=== PATIENT | female | born 1970 | race Caucasian/White ===

== ENCOUNTER 2023-11-13 13:31 | Outpatient (OUT) | payer BC, SELFPAY ==
--- NOTE | 2023-11-13 | XR_ITS ---
The [address] [address] Patient Name: DEJAH DYKES MRN: [id number] date: 1970 Sex: F Assigned Patient Location: Current Patient Location: Accession/Order Number: [id number] Exam Date: 11/13/2023 13:32 Report Date: 11/13/2023 14:12 At the request of: SAURABH MOREL Procedure: XR ankle RT min 3V PROCEDURE: XR ankle RT min 3V COMPARISON: None. HISTORY: RIGHT ANKLE PAIN FINDINGS: BONES:No acute fracture or dislocation. Moderate degenerative changes with joint space narrowing and marginal osteophyte formation. Mild enthesopathic spurring the calcaneus at the Achilles tendon. Mild plantar rotation of the navicular in relation to the tarsal bones SOFT TISSUES:Negative. No visible soft tissue swelling. EFFUSION:None visible. OTHER: Negative. XR/XR ankle RT min 3V IMPRESSION: Moderate degenerative changes most significant anterior tibiotalar joint Electronically authenticated by: ILANA PINEDA Date: 11/13/2023 14:12
== END 2023-11-13 13:32 | disposition home or self-care (01) ==
PROVIDERS: PCP Physician Assistant; Visit Provider Podiatrist Foot & Ankle Surgery
DX: M25.571 Pain in right ankle and joints of right foot (principal)
CPT/HCPCS: 73610

== ENCOUNTER 2023-11-15 13:16 | Outpatient (OUT) | payer BC, SELFPAY ==
--- NOTE | 2023-11-15 13:24 | CT_ITS ---
[address] [address] Patient Name: DEJAH DYKES MRN: [id number] date: 1970 Sex: F Assigned Patient Location: CT Current Patient Location: Accession/Order Number: [id number] Exam Date: 11/15/2023 13:30 Report Date: 11/18/2023 07:16 At the request of: SAURABH MOREL Procedure: CT ankle RT wo con EXAMINATION: CT ankle RT wo con HISTORY: Degenerative Joint Disease COMPARISON: No relevant comparison available. TECHNIQUE: Multi-planar CT images were created without IV contrast. Dose reduction techniques were achieved by using automated exposure control and/or adjustment of mA and/or kV according to patient size and/or use of iterative reconstruction technique. FINDINGS: BONES: No acute fracture or dislocation. Mild degenerative changes of the knee. Moderate degenerative changes of the ankle most significant along the anterior tibiotalar joint with marginal osteophyte formation and asymmetric anterior joint space narrowing. Minimal enthesopathic spurring of the calcaneus at the Achilles insertion. SOFT TISSUES: Negative. No visible soft tissue swelling. EFFUSION: None visible. OTHER: Negative. CT/CT ankle RT wo con IMPRESSION: Moderate tibiotalar joint osteoarthritis Electronically authenticated by: ILANA PINEDA Date: 11/18/2023 07:16
== END 2023-11-15 13:17 | disposition home or self-care (01) ==
LOC: CT 13:19
PROVIDERS: PCP Physician Assistant; Visit Provider Podiatrist Foot & Ankle Surgery
DX: M19.071 Primary osteoarthritis, right ankle and foot (principal)
CPT/HCPCS: 73700

== ENCOUNTER 2024-03-30 09:54 | Outpatient (OUT) | payer BC, SELFPAY ==
--- NOTE | 2024-03-30 10:01 | ECG_ITS ---
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
--- NOTE | 2024-03-30 10:52 | P.GSHP_ITS ---
History of Present Illness History of Present Illness Chief complaint: primary osteoarthritis right Narrative: Patient presents for preadmission testing. The patient reports 3 previous surgeries on her right ankle and still has pain and instability. She states after long periods of time on her feet she does have some mild swelling. She is not currently taking any pain medications but has been intermittently using a wrap or a brace to help with her discomfort. She denies numbness, tingling, weakness, or any other complaints. She states she was diagnosed with MANRIQUEZ in the last year, and was recently diagnosed with diabetes and is awaiting insurance approval for [employer]. Review of Systems ROS Narrative REVIEW OF SYSTEMS: Negative except as stated in HPI, ten or more systems reviewed. Constitutional: No fever, chills, weakness ENT: No sore throat or epistaxis Cardiovascular: No edema, chest pain, palpitations, or activity intolerance Respiratory: No shortness of breath, cough, or wheezing Gastrointestinal: No abdominal pain, constipation, diarrhea, or vomiting Genitourinary: No dysuria or hematuria Neurological: No numbness, tingling, weakness, or headache Psychiatric: No mood changes [facility] Medical History (Updated 03/30/24 @ 10:49 by Tiffanie Stephenson NP) Rosacea ?L71.9 - Rosacea, unspecified (ICD-10) Carpal tunnel syndrome ?G56.00 - Carpal tunnel syndrome, unspecified upper limb (ICD-10) Back pain ?M54.9 - Dorsalgia, unspecified (ICD-10) Insomnia ?G47.00 - Insomnia, unspecified (ICD-10) COVID-19 ?U07.1 - COVID-19 (ICD-10) Sleep apnea ?G47.30 - Sleep apnea, unspecified (ICD-10) Sepsis ?A41.9 - Sepsis, unspecified organism (ICD-10) S/P extracorporeal shock wave therapy ?Z98.890 - Other specified postprocedural states (ICD-10) Kidney stones ?N20.0 - Calculus of kidney (ICD-10) Seasonal allergies ?J30.2 - Other seasonal allergic rhinitis (ICD-10) Extremity edema ?R60.0 - Localized edema (ICD-10) Diabetes ?E11.9 - Type 2 diabetes mellitus without complications (ICD-10) Postoperative nausea and vomiting ?R11.2 - Nausea with vomiting, unspecified (ICD-10) ?Z98.890 - Other specified postprocedural states (ICD-10) Deep vein thrombosis ?I82.409 - Acute embolism and thrombosis of unspecified deep veins of unspecified lower extremity (ICD-10) MANRIQUEZ (nonalcoholic steatohepatitis) ?K75.81 - Nonalcoholic steatohepatitis (MANRIQUEZ) (ICD-10) Hypothyroid ?E03.9 - Hypothyroidism, unspecified (ICD-10) Hypertension ?I10 - Essential (primary) hypertension (ICD-10) Liver disease ?K76.9 - Liver disease, unspecified (ICD-10) Other specified acquired deformities of musculoskeletal system ?M95.8 - Other specified acquired deformities of musculoskeletal system (ICD- 10) 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 - Osteochondritis dissecans of unspecified site (ICD-10) Contracture, right ankle ?M24.571 - Contracture, right ankle (ICD-10) Primary osteoarthritis, right ankle and foot ?M19.071 - Primary osteoarthritis, right ankle and foot (ICD-10) Surgical History (Updated 03/30/24 @ 10:33 by Tiffanie Stephenson NP) S/P ureteral stent placement ?Z96.0 - Presence of urogenital implants (ICD-10) S/P cystoscopy ?Z98.890 - Other specified postprocedural states (ICD-10) History of carpal tunnel release ?Z98.890 - Other specified postprocedural states (ICD-10) History of nasal septoplasty ?Z98.890 - Other specified postprocedural states (ICD-10) History of wisdom tooth extraction ?K08.409 - Partial loss of teeth, unspecified cause, unspecified class (ICD- 10) History of esophagogastroduodenoscopy (EGD) ?Z98.890 - Other specified postprocedural states (ICD-10) History of colonoscopy ?Z98.890 - Other specified postprocedural states (ICD-10) History of liver biopsy ?Z98.890 - Other specified postprocedural states (ICD-10) H/O lumbosacral spine surgery ?Z98.890 - Other specified postprocedural states (ICD-10) H/O shoulder surgery ?Z98.890 - Other specified postprocedural states (ICD-10) History of ankle surgery ?Z98.890 - Other specified postprocedural states (ICD-10) History of hysterectomy ?Z90.710 - Acquired absence of both cervix and uterus (ICD-10) History of cholecystectomy ?Z90.49 - Acquired absence of other specified parts of digestive tract (ICD- 10) Family History (Updated 03/30/24 @ 10:33 by Tiffanie Stephenson NP) Other Cancer Family history of COPD (chronic obstructive pulmonary disease) Family history of diabetes mellitus Family history of hypertension Liver disease Social History (Updated 03/30/24 @ 10:24 by Tiffanie Stephenson NP) Within the past year, how often did you have a drink containing alcohol: never Score interpretation: A score less than 3 is consistent with normal alcohol consumption. Smoking status: Never smoker Non-prescribed substance use: denies use Highest level of school completed/degree received: Associate degree: academic program Meds Home Medications and Allergies Home Medications ?Medication ?Instructions ?Recorded ?Confirmed ?Type bisoprolol 2.5 1 tab PO DAILY 03/30/24 03/30/24 History mg-hydrochlorothiazide 6.25 mg tablet levothyroxine 50 mcg tablet 50 mcg PO DAILY 03/30/24 03/30/24 History minocycline 100 mg capsule 100 mg PO DAILY 03/30/24 03/30/24 History montelukast 10 mg tablet 10 mg PO DAILY 03/30/24 03/30/24 History potassium chloride 20 mEq 20 meq PO DAILY 03/30/24 03/30/24 History tablet,extended release resmetirom 100 mg tablet 100 mg PO DAILY 03/30/24 03/30/24 History (Rezdiffra) zolpidem 10 mg tablet 10 mg PO QPM 03/30/24 03/30/24 History Allergies Allergy/AdvReac Type Severity Reaction Status Date / Time acetaminophen [From Vicodin] Allergy delusional, Verified 03/30/24 10:14 liver disease adhesive Allergy Rash Verified 03/30/24 10:15 hydrocodone [From Vicodin] Allergy delusional Verified 03/30/24 10:14 sulfamethoxazole AdvReac yeast Verified 03/30/24 10:15 [From Bactrim] infection trimethoprim [From Bactrim] AdvReac yeast Verified 03/30/24 10:15 infection Exam Narrative Exam Narrative: Constitutional: Awake, alert, comfortable, well-appearing, nontoxic, interactive, vital signs as charted Head: Normocephalic, atraumatic Neck: Supple, normal appearance, normal range of motion, no meningeal signs, no lymphadenopathy Respiratory: No respiratory distress, breath sounds clear Cardiovascular: Regular rate and rhythm, strong and regular heart tones Musculoskeletal: Diffuse anterior right ankle tenderness with palpation, limited ankle range of motion due to pain, good capillary refill, sensation intact Skin: No rashes or induration, no lesions, only visible skin inspected Neuro: No neurological deficits, normal sensation Psychiatric: Oriented ?3, normal affect Assessment and Plan Assessment and Plan (1) Primary osteoarthritis, right ankle and foot: (2) Contracture, right ankle: (3) Osteochondritis dissecans: (4) Other specified acquired deformities of musculoskeletal system: Plan Right ankle and subtalar joint fusion with soft tissue balancing and bone graft as needed scheduled with Dr. García April 13, 2024.
[2024-03-30 10:58] LABS: Basophils Absolute Auto 0.1 10^3/uL (0.0-0.1); Basophils Percent Auto 1.1 % (0.2-2.0); Eosinophils Absolute Auto 0.2 10^3/uL (0.0-0.7); Eosinophils Percent Auto 2.2 % (0.9-7.0); Hematocrit 42.2 % (36.0-48.0); Hemoglobin 14.7 g/dL (12.0-16.0); Immature Granulocytes Abs Auto 0.01 10^3/uL (0.00-0.03); Immature Granulocytes Pct Auto 0.1 % (0.0-0.5); Lymphocytes Absolute Auto 3.5 10^3/uL (1.2-3.8); Lymphocytes Percent Auto 48.6 % (20.5-60.0); Mean Corpuscular HGB Conc 34.8 g/dL (29.9-35.2); Mean Corpuscular Hemoglobin 31.3 pg (26.7-34.0); Mean Corpuscular Volume 89.8 fL (81.0-99.0); Mean Platelet Volume 10.2 fL (9.5-13.5); Monocytes Absolute Auto 0.5 10^3/uL (0.3-0.8); Monocytes Percent Auto 7.5 % (1.7-12.0); Neutrophils Absolute Auto 2.9 10^3/uL (1.4-6.5); Neutrophils Percent Auto 40.5 % (43.0-75.0); Platelet Count 207 10^3/uL (150-450); Red Cell Distribution Width 12.2 % (11.0-15.0); White Blood Count 7.2 10^3/uL (4.0-11.0)
[2024-03-30 11:22] LABS: INR 0.99; Partial Thromboplastin Time 26.4 sec (22.3-36.2); Prothrombin Time 10.5 sec (9.0-11.6)
[2024-03-30 15:14] LABS: Alanine Aminotransferase 76 U/L (14-59); Albumin Globulin Ratio 0.9; Albumin Level 3.4 g/dL (3.4-5.0); Alkaline Phosphatase 78 U/L (46-116); Aspartate Amino Transferase 63 U/L (15-37); BUN Creatinine Ratio 12.6; Bilirubin Direct 0.1 mg/dL (0.0-0.2); Bilirubin Total 0.6 mg/dL (0.2-1.0); Calcium 9.2 mg/dL (8.5-10.1); Chloride 105 mmol/L (98-107); Estimated GFR (African America >60 (>=60); Estimated GFR (Non-African Ame >60 (>=60); Globulin 3.8 g/dL; Glucose 108 mg/dL (74-106); Sodium 145 mmol/L (136-145); Total Protein 7.2 g/dL (6.4-8.2)
== END 2024-03-30 09:55 | disposition home or self-care (01) ==
LOC: PST 09:54
PROVIDERS: PCP Physician Assistant; Visit Provider Podiatrist Foot & Ankle Surgery
DX: Z01.810 Encounter for preprocedural cardiovascular examination (principal); Z01.812 Encounter for preprocedural laboratory examination; Z01.818 Encounter for other preprocedural examination; M93.20 Osteochondritis dissecans of unspecified site; M19.071 Primary osteoarthritis, right ankle and foot
CPT/HCPCS: 80048; 80076; 85025; 85610; 85730; 93005; G0463

== ENCOUNTER 2024-04-13 06:04 | Day surgery (SDC) | payer BC, SELFPAY ==
[2024-03-30 10:48] VITALS: BP 144/73; PULSE 64; TEMP 36.3; O2SAT 96; BMI 42.5
--- OUTSIDE RECORDS SUMMARY | 2024-04-13 06:07 | XMS_ITS | CCD ---
Author Organization [facility] Care Team Providers Care Furniture Painter Name Role Phone MATTHEW RIVER Admitting Unavailable MATTHEW RIVER H Attending Unavailable LENORA SANTOS Primary Care Unavailable ILANA MEDEIROS V Consulting Unavailable MATTHEW RIVER Consulting Unavailable Lenora SANTOS Primary Care Physician Adriana Maier Unavailable Unavailable THELMA Santos Primary Care Provider [phone]( [phone] DO Regino Metcalf Emergency Provider [phone] Lenora Alvarez Unavailable Neli Slater MD Primary Care Provider Lenora Santos PA-C Unavailable THELMA Santos Primary Care Provider THELMA Dimas Emergency Provider Renetta Chavarria MD Primary Care Provider Lenora Sandy Unavailable DANNY Giordano Attending Provider Fibroscan, Temporary Attending Provider DANNY Cornoy Referring Provider THELMA Santos Primary Care Provider THELMA Dimas Emergency Provider DANNY Giordano Attending Provider Fibroscan, Temporary Attending Provider DANNY Conroy Referring Provider MD Jorge Alberto Rowe Attending Provider [phone] LENORA SANTOS Attending Unavailable TOMLENORA CHIANG Attending Unavailable TOMLENORA CHIANG Attending Unavailable TOMLENORA CHIANG Attending Unavailable TOMLENORA CHIANG Attending Unavailable TOMLENORA CHIANG Attending Unavailable TOMLENORA CHIANG Attending Unavailable THEMLA Santos Primary Care Provider NANDAM, NEEHARIKA Referring Unavailable YUE, NELI A Primary Care Unavailabl e NANDAM, NEEHARIKA Referring Unavailable YUE, NELI A Primary Care Unavailabl e NANDAM, NEEHARIKA Attending Unavailable YUE, NELI A Primary Care Unavailabl e VEERAMACHANENI, RAVALI Attending Unavailab le YUE, NELI A Primary Care Unavailabl e YUE, NELI A Primary Care Unavailabl e VEERAMACHANENI, RAVALI Referring Unavailab le YUE, NELI A Primary Care Unavailabl e VEERAMACHANENI, RAVALI Attending Unavailab le NANDAM, NEEHARIKA Referring Unavailable YUE, NELI A Primary Care Unavailabl e NANDAM, NEEHARIKA Referring Unavailable NANDAM, NEEHARIKA Attending Unavailable YUE, NELI A Primary Care Unavailabl e THELMA Santos Primary Care Provider DANNY Giordano Attending Provider THELMA Santos Primary Care Provider [phone] MD Kamilah Ward Attending Provider Hu Davis Attending Unavailable Hu Davis Referring Unavailable Lenora SANTOS Attending Unavailable Lenora SANTOS Referring Unavailable Lenora SANTOS Admitting Unavailable Lenora SANTOS Referring Unavailable Forest Gonzalez Attending Unavaila James Walsh Attending Unavailable Cody Young Attending Unavailable Juan Bennett Attending Unavailable Juan Bennett Referring Unavailable DO Hu Davis Admitting Unavailabl e Lenora SANTOS Referring Unavailable Hu Davis Attending Unavailable Tamiko Robert Attending Unavailable Lenora SANTOS Referring Unavailable Tamiko Robert Admitting Unavailable Tamiko Robert Attending Unavailable Lenora SANTOS Referring Unavailable NONE, XXXX Referring Unavailable Christofferson, Forest D. Attending Forest Alexandra Admitting Unavaila Lenora Zamarripa Referring Unavailable Forest Gonzalez Admitting Unavaila Forest Jackson Attending UnavailForest Moreno Consulting Unavaila Forest Jackson Attending UnavailForest Moreno Referring Unavaila Forest Jackson Admitting UnavailMD Forest Moreno Consulting Unava ilForest Schmidt Consulting Unavaila Hu Winston Referring Unavailable DO Hu Davis Admitting Unavailabl e Hu Davis Attending Unavailable MD Tank Xavier Attending Provider [phone] Tank Xavier Admitting Unavailable Tank Xavier Attending Unavailable Lenora Santos Primary Care Unavailable Forest Giordano Admitting Unavailable Forest Giordano Attending Unavailable Lenora Santos Primary Care Unavailable Asaad, Imad Admitting Unavailable Asaad, Imad Attending Unavailable Lenora Santos Primary Care Unavailable Forest Giordano Admitting Unavailable ScForest osman Attending Unavailable Lenoar Santos Primary Care Unavailable Forest Giordano Referring Unavailable Lenora Santos Primary Care Unavailable Asaad, Imad Admitting Unavailable Asaad, Imad Attending Unavailable Jorge Alberto Rowe Admitting Unavailable Jorge Alberto Rowe Attending Unavailable Lenora Santos Primary Care Unavailable Allan Dimas Admitting Unavailable Allan Dimas Attending Unavailable Lenora Santos Primary Care Unavailable Allergies Allergy Classification Reported Allergen(s) Allergy Type Date of Onset Reaction(s) Facility Acetaminophen / HYDROcodone (1 source) Acetaminophen / HYDROcodone; Translations: [acetaminophen-hydr ocodone] Drug Allergy Hallucinations (finding) [facility] Sulfamethoxazole / Trimethoprim (1 source) Sulfamethoxazole / Trimethoprim; Translations: [sulfamethoxazole-t rimethoprim] Drug Allergy Weal (disorder) [facility] (20 sources) Acetaminophen / HYDROcodone; Translations: [acetaminophen-hydr ocodone] Drug Allergy 011 Hallucinations (finding), Other: See Comments [facility] (12 sources) Acetaminophen; Translations: [acetaminophen] Drug Allergy 023 Other: See Comments [facility] (6 sources) HYDROcodone; Translations: [hydrocodone] Drug Allergy 023 Hallucinating [facility] (5 sources) Adhesive Tape; Translations: [ADHESIVE TAPE (ROSINS)] Allergy to substance 011 Rash, Itching [facility] Work Phone: (5 sources) Seasonal allergy; Translations: [SEASONAL ALLERGIES] Allergy to substance 011 Itching, Other: See Comments [facility] (3 sources) Acetaminophen / HYDROcodone; Translations: [HYDROCODONE-ACETAM INOPHEN] Drug Allergy 011 Hallucinations [facility] (2 sources) Other Allergy to substance 011 Itching, Other [facility] (2 sources) Wound Dressing Adhesive Drug Allergy 011 Itching, Rash [facility] (5 sources) Sulfamethoxazole / Trimethoprim; Translations: [sulfamethoxazole-t rimethoprim] Drug Allergy Weal (disorder) [facility] (6 sources) Sulfamethoxazole; Translations: [sulfamethoxazole] Drug Allergy 024 yeast infection [facility] (6 sources) Trimethoprim; Translations: [trimethoprim] Drug Allergy 024 yeast infection [facility] Medications Current Medications Medication Drug Class(es) Dates Sig (Normalized) Sig (Original) bisoprolol fumarate 2.5 mg / hydroCHLOROthiazide 6.25 mg oral tablet (20 sources) Thiazide Diuretic, beta-Adrenergic Liza Start: 04-30-2023 take 1 tablet by mouth in the morning bisoprolol-hydroC HLOROthiazide (Ziac) 2.5-6.25 MG tablet Indications: Essential hypertension (CMS/HCC) Take 1 tablet by mouth in the morning. 90 tablet 3 04/30/2023 Active Start: 04-08-2019 take 1 tablet by vargas th once daily Ziac 5 mg-6.25 mg oral tablet 1 tab(s), Oral, Daily, 90 tab(s), Refill(s) 1, [facility]/pharmacy #[id number] Start Date: 04/08/19 Status: Ordered Start: 08-06-2009 bisoprolol-hyd roCHLOROthiazide (ZIAC) 5-6.25 mg per tablet Take by mouth. 0 08/06/2009 Active Comment on above: Take by mouth. ciprofloxacin 500 mg oral tablet (8 sources) Quinolone Antimicrobial Start: 03-28-20 take 1 tablet by mouth once daily Cipro 500 mg Tab See Instructions, 1 tab po day prior to procedure, 1 tab po following procedure, # 2 tab(s), Refills(s) 0, Pharmacy: [facility]/pharmacy #[id number], 163, cm, 03/28/22 9:01:00 EDT, Height/Length Dosing, 105, kg, 03/28/22 9:01:00 EDT, Weight Dosing Start Date: 03/28/22 Status: Ordered DULoxetine 30 mg delayed release oral capsule (2 sources) Serotonin and Norepinephrine Reuptake Inhibitor Start: 08-09-19 24 take 1 capsule by mouth in the morning DULoxetine (Cymbalta) [address] capsule Indications: Joint pain of lower extremity Take 1 capsule (30 mg) by mouth in the morning and 1 capsule (30 mg) before bedtime. Do not crush or chew.. 60 capsule 3 08/09/2023 Active estradiol 0.1 mg/ml vaginal cream (19 sources) Estrogen Start: 04-30-20 23 estradiol (Estrace) 0.1 MG/GM vaginal cream Indications: Chronic vaginitis Insert 1 g into the vagina in the morning. Please give three tubes. 42.5 g 3 04/30/2023 Active Start: 06-01-2022 Estrace 0.1 mg /g Cream See Instructions, 42.5 gm, Refill(s) 5, insert 1gm vaginally & apply pea sized amount around the urethra nightly x 3 weeks, then 3x per week thereafter, [facility]/pharmacy #[id number], 162.5, cm, 04/24/22 15:43:00 EDT, Height/Length Dosing, 105, kg, 03/28/22 9:01:00 EDT, Weight Dosing Start Date: 06/01/22 Status: Ordered Start: 03-28-2022 Estrace 0.1 mg /g Cream See Instructions, 42.5 gm, Refill(s) 5, insert 1gm vaginally & apply pea sized amount around the urethra nightly x 3 weeks, then 3x per week thereafter, [facility]/pharmacy #[id number], 163, cm, 03/28/22 9:01:00 EDT, Height/Length Dosing, 105, kg, 03/28/22 9:01:0... Start Date: 03/28/22 Status: Ordered levothyroxine sodium 0.05 mg oral tablet (20 sources) l-Thyroxine Start: 09-12-2023 levothyroxine 50 mcg (0.05 mg) Tab Refills(s) 0 Start Date: 09/12/23 Status: Ordered Start: 03-15-2023 take 50 ug by mouth once daily Levothyroxine Active 50 MCG PO Daily August 12, 2023 1:00am take 1 capsule by mo ut once daily before breakfast levothyroxine 50 mcg cap Take 50 mcg by mouth daily before breakfast. 0 Active take 1 tablet by vargas once daily in the morning Levothyroxine Sodium 50 MCG 1 tablet in the morning on an empty stomach Orally Once a day Active Comment on above: Take 50 mcg by mouth daily before breakfast. meloxicam 15 mg oral tablet (16 sources) Nonsteroidal Anti-inflammatory Drug Start: 0 take 1 tablet by mouth once daily meloxicam 15 mg oral tablet 15 mg = 1 tab(s), Oral, Daily, Pain Start Date: 06/09/20 Status: Ordered metFORMIN hydrochloride 500 mg oral tablet (12 sources) Biguanide Start: take 500 mg by mouth four times daily metformin 500 mg, Oral, QID, Refills(s) 0 Start Date: 01/29/24 Status: Ordered Start: 12-06-2023 take 1000 mg by mouth once amelia ly Metformin Active 1000 MG PO Daily December 06, 2023 12:00am Start: 10-17-2023 take 500 mg by mouth once avis y metformin 500 mg, Oral, Daily, Refills(s) 0 Start Date: 10/17/23 Status: Ordered Start: 09-26-2023 metFORMIN ER ( GLUCOPHAGE XR) 500 mg 24 hr tablet First week take one tablet with breakfast daily; second week: take one tablet with breakfast and one tablet with dinner; third week: take two pills with breakfast and one pill with dinner; fourth week and onwards: take two pills with breakfast and two pills with dinner. 360 tablet 1 09/26/2023 Active Comment on above: First week take one tablet with breakfast daily; second week: take one tablet with breakfast and one tablet with dinner; third week: take two pills with breakfast and one pill with dinner; fourth week and onwards: take two pills with breakfast and two pills with dinner. minocycline 100 mg oral capsule (20 sources) Tetracycline-class Drug Start: 9 take 1 capsule by mouth once daily minocycline 100 mg Cap 100 mg, Oral, Daily, # 100 cap(s), Refills(s) 1, Pharmacy: [facility]/pharmacy #[id number] Start Date: 04/30/19 Status: Ordered Start: 07-17-2017 take 45 mg by mouth once daily Minocycline Active 45 MG PO Daily July 17, 2017 1:00am Start: 03-14-2011 Minocycline 13 5 mg ORAL Tb24 Indications: OCD (osteochondritis dissecans) of talus , Pain in joint, ankle and foot Take by mouth. 0 03/14/2011 Active Comment on above: Take by mouth. montelukast 10 mg oral tablet (20 sources) Leukotriene Receptor Antagonist Start: 1 take 10 mg by mouth once daily in the evening Singulair 10 mg, Oral, qPM, Refills(s) 0, Allergy symptoms Start Date: 07/22/15 Status: Ordered Comment on above: Take 1 tablet by vargas daily at bedtime. nebivolol 2.5 mg oral tablet (14 sources) Start: 7 take 1 tablet by mouth once daily Nebivolol (Bystolic) 2.5 mg Tablet Active 2.5 MG PO Daily July 17, 2017 1:00am take 1 tablet by vargas every twenty-four hours Bystolic 5 MG 1 tablet Orally Once a day Active Potassium (1 source) Potassium Active potassium chloride 20 meq extended release oral tablet (20 sources) Start: 10-18-2023 take 20 mEq by mouth once daily Potassium Chloride Active 20 MEQ PO Daily October 18, 2023 12:00am Start: 06-22-2020 take 1 tablet by vargas th twice daily potassium chloride 10 mEq ER Tab 10 mEq = 1 tab(s), Oral, BID, Prophylaxis Start Date: 06/22/20 Status: Ordered Comment on above: Take 20 mEq by mouth once daily. predniSONE 20 mg oral tablet (2 sources) Start: 08-30-2023 End: 09-14-2023 take 1 tablet by mouth three times daily, then take 1 tablet by mouth twice daily, then take 1 tablet by mouth once daily predniSONE (Deltasone) 20 MG tablet Indications: Sciatica of right side Take 1 tablet (20 mg) by mouth 3 (three) times a day for 5 days, THEN 1 tablet (20 mg) 2 (two) times a day for 5 days, THEN 1 tablet (20 mg) Daily for 5 days. 30 tablet 0 08/30/2023 09/14/2023 Active Start: 08-12-2023 End: 08-19-2023 take 3 tablets by mouth once daily predniSONE 20 mg Tab 60 mg = 3 tab(s), Oral, Daily, X 7 day(s), # 21 tab(s), Refills(s) 0, Pharmacy: [facility] #[id number], 162, cm, 08/12/23 11:38:00 EST, Height/Length Dosing, 125, kg, 08/12/23 11:38:00 EST, Weight Dosing Start Date: 08/12/23 Stop Date: 08/19/23 Status: Ordered Resmetirom (3 sources) Start: 03-17-2024 take 1 tablet by vargas th once daily Resmetirom (Rezdiffra) 100 mg tablet Active 100 MG PO Daily March 17, 2024 12:00am resmetirom 100 MG Oral Tablet [Rezdiffra] (2 sources) Start: 03-03-2024 take 1 tablet by vargas th once daily Rezdiffra 100 mg oral tablet 100 mg = 1 tab(s), Oral, Daily, Refills(s) 0 Start Date: 03/03/24 Status: Ordered Semaglutide Base (4 sources) Start: 03-17-2024 inject 1 mL by subcutaneous injection every week Semaglutide Base Active 0.25 ML SUBCUT every week March 17, 2024 12:00am [facility] Pre-filled Syringes using Semaglutide Base. Dispense 1 mL = (Four 0.25 mL pre-filled syringes) Start: 03-17-2024 inject 1 mL by subcu taneous injection every week Semaglutide Base Active 0.5 ML SUBCUT every week 2 March 17, 2024 12:00am [facility] Pre-filled Syringes using Semaglutide Base. Dispense 2 mL = (Four 0.5 mL pre-filled syringes) spironolactone 50 mg oral tablet (13 sources) Aldosterone Antagonist Start: 07-17-2017 take 50 mg by mouth once daily Spironolactone Active 50 MG PO Daily July 17, 2017 1:00am tamsulosin hydrochloride 0.4 mg oral capsule (1 source) alpha-Adrenergic Liza take 1 capsule by mouth every twenty-four hours Tamsulosin HCl 0.4 MG 1 capsule Orally Once a day Active zolpidem tartrate 10 mg oral tablet (20 sources) gamma-Aminobutyri c Acid-ergic Agonist Start: 03-14-2011 End: 09-18-2023 take 1 tablet by mouth at bedtime Zolpidem (Ambien) 10 mg Tablet Active 10 MG PO Bedtime July 17, 2017 1:00am Comment on above: Take 1 tablet by vargas th at bedtime as needed. for insomnia. Completed/Discontinued Medications Medication Drug Class(es) Dates Sig (Normalized) Sig (Original) acetaminophen 325 mg / oxyCODONE hydrochloride 5 mg oral tablet (20 sources) Opioid Agonist Start: 06-22-2020 Percocet 325 mg-5 mg Tab See Instructions, as needed for pain, 40 tab(s), Refill(s) 0, 1-2 orally every 4-6hrs as needed for pain Dx: M75.41, M19.011 Duration: 7 days Start Date: 06/22/20 Status: Ordered Start: 07-23-2017 End: 12-06-2023 take 1 tablet by mouth every six hours Oxycodone-Acetaminophen (Percocet) 5-325 mg tablet Discontinued 1 TAB PO Q6H 14 August 12, 2023 December 06, 2023 9:17am Start: 07-17-2017 End: 07-23-2017 take 1 tablet by mouth every four to six hours Oxycodone-Acetaminophen (Percocet) 5-325 mg Tablet Discontinued 1 TAB PO EVERY 4-6 HOURS July 17, 2017 1:00am July 23, 2017 6:18pm Comment on above: Take 1 tablet by vargas th q 6 HR. Cardioplegic No.20 (Maint 4:1) (Cardioplegia Maintenance 4:1) 20 mEq/810 mL (potassium) solution (11 sources) Start: 09-19-2023 End: 10-18-2023 Cardioplegic No.20 (Maint 4:1) (Cardioplegia Maintenance 4:1) 20 mEq/810 mL (potassium) solution Discontinued ML PERFUSION September 19, 2023 1:00am October 18, 2023 2:03pm Start: 09-19-2023 Cardioplegic N o.20 (Maint 4:1) (Cardioplegia Maintenance 4:1) 20 mEq/810 mL (potassium) solution Active ML PERFUSION September 19, 2023 12:00am cephalexin 500 mg oral capsule (13 sources) Cephalosporin Antibacterial Start: 07-23-2017 End: 09-19-2023 take 1 capsule by mouth every eight hours Cephalexin (Keflex) 500 mg capsule Discontinued 500 MG PO Q8H 21 July 23, 2017 1:00am September 19, 2023 11:08am cyclobenzaprine hydrochloride 10 mg oral tablet (20 sources) Muscle Relaxant Start: 07-17-2017 End: 09-19-2023 take 10 mg by mouth once daily at bedtime Cyclobenzaprine Discontinued 10 MG PO Daily at bedtime 40 July 23, 2017 6:20pm September 19, 2023 11:09am docusate sodium 50 mg / sennosides, custodial 8.6 mg oral tablet (13 sources) Start: 07-23-2017 End: 09-19-2023 take 2 tablets by mouth twice daily Sennosides-Docusate Sodium (Dok Plus) 8.6-50 mg Tablet Discontinued 2 TAB PO Twice daily 40 July 23, 2017 1:00am September 19, 2023 11:10am 72 hr fentaNYL 0.025 mg/hr transdermal system (13 sources) Opioid Agonist Start: 07-23-2017 End: 09-19-2023 Fentanyl Discontinued 25 MCG TRANSDERML Every 72 hours 5 July 23, 2017 1:00am September 19, 2023 11:09am ferrous sulfate 324 mg delayed release oral tablet (13 sources) Start: 07-23-2017 End: 09-19-2023 take 324 mg by mouth twice daily Ferrous Sulfate Discontinued 324 MG PO Twice daily 30 July 23, 2017 1:00am September 19, 2023 11:09am Prednisone Dose Pack (13 sources) Start: 07-17-2017 End: 07-23-2017 Prednisone Dose Pack Discontinued July 17, 2017 12:00am July 23, 2017 5:18pm Start: 07-17-2017 End: 07-23-2017 Prednisone Dose Pack Discont inued July 17, 2017 1:00am July 23, 2017 6:18pm pregabalin 75 mg oral capsule (13 sources) Start: 09-20-2023 End: 12-06-2023 take 1 capsule by mouth twice daily Pregabalin (Lyrica) 75 mg capsule Discontinued 75 MG PO Twice daily October 18, 2023 12:00am December 06, 2023 9:18am Comment on above: Take 75 mg by mouth. tirzepatide, weight loss (ZEPBOUND) 2.5 mg/0.5 mL pen injector (3 sources) Start: 09-24-2023 End: 11-11-2023 inject 2.5 mg by subcutaneous injection every week tirzepatide, weight loss (ZEPBOUND) 2.5 mg/0.5 mL pen injector Inject 2.5 mg subcutaneously one time a week. 2 mL 0 09/24/2023 11/11/2023 Discontinued Start: 09-24-2023 End: 10-24-2023 inject 2.5 mg by subcutaneous injection every week tirzepatide, weight loss (ZEPBOUND) 2.5 mg/0.5 mL pen injector Inject 2.5 mg subcutaneously one time a week. 2 mL 0 09/24/2023 10/24/2023 Active Comment on above: Inject 2.5 mg subcut aneously one time a week. traMADol hydrochloride 50 mg oral tablet (12 sources) Opioid Agonist Start: 08-12-2023 End: 10-18-2023 Tramadol Discontinued 50 MG PO As Directed August 12, 2023 1:00am October 18, 2023 2:04pm Problems Active Problems Problem Classification Problem Date Documented Da te Episodic/Chronic Anxiety disorders (2 sources) Anxiety; Translations: [Anxiety disorder, unspecified] Onset: 01-04-2023 01-04-2023 Chronic Calculus of urinary tract (20 sources) Kidney stone; Translations: [Calculus of kidney] Onset: 03-28-2022 05-14-2013 Episodic Diabetes mellitus without complication (8 sources) Hyperglycemia; Translations: [Hyperglycemia, unspecified] Onset: 02-14-2023 02-14-2023 Episodic Essential hypertension (13 sources) Essential hypertension; Translations: [Essential (primary) hypertension] Onset: 01-04-2023 05-06-2023 Chronic Genitourinary symptoms and ill-defined conditions (20 sources) Increased frequency of urination; Translations: [Frequency of micturition] Onset: 03-28-2022 Episodic Hepatitis (11 sources) Steatohepatitis; Translations: [Nonalcoholic steatohepatitis (MANRIQUEZ)] Onset: 03-06-2024 12-24-2023 Chronic Miscellaneous mental health disorders (3 sources) Primary insomnia; Translations: [Primary insomnia] Onset: 01-04-2023 01-04-2023 Chronic Mood disorders (20 sources) Depressive disorder; Translations: [Depression] Onset: 02-01-2023 12-11-2018 Chronic Osteoarthritis (6 sources) Degenerative joint disease of ankle AND/OR foot; Translations: [Primary osteoarthritis, unspecified ankle and foot] Onset: 03-20-2011 03-20-2011 Chronic Other bone disease and musculoskeletal deformities (20 sources) Osteochondritis dissecans; 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] Onset: 02-01-2023 09-08-2019 Chronic Other bone disease and musculoskeletal deformities (6 sources) Osteochondritis dissecans of the talus; Translations: [Osteochondritis dissecans, unspecified ankle and joints of foot] Onset: 03-14-2011 03-14-2011 Chronic Other circulatory disease (20 sources) H/O: hypertension; Translations: [Personal history of other diseases of the circulatory system] Onset: 02-01-2023 12-11-2018 Episodic Other connective tissue disease (13 sources) Swelling of lower limb; Translations: [Other specified soft tissue disorders] 03-10-2023 Episodic Other connective tissue disease (2 sources) Muscle pain; Translations: [Myalgia, unspecified site] Onset: 08-13-2023 08-13-2023 Episodic Other inflammatory condition of skin (20 sources) Rosacea; Translations: [Rosacea, unspecified] Onset: 02-01-2023 09-08-2019 Chronic Other liver diseases (20 sources) Steatosis of liver; Translations: [Fatty (change of) liver, not elsewhere classified] Onset: 02-01-2023 06-09-2020 Chronic Other liver diseases (15 sources) Fatty (change of) liver, not elsewhere classified; Translations: [Other chronic nonalcoholic liver disease] Onset: 09-25-2023 09-19-2023 Chronic Other nervous system disorders (1 source) Paresthesia; Translations: [Paresthesia of skin] Onset: 12-15-2021 Episodic Other nervous system disorders (13 sources) Impaired cognition; Translations: [Other symptoms and signs involving cognitive functions and awareness] 03-10-2023 Episodic Other non-traumatic joint disorders (12 sources) Hip pain; Translations: [Pain in right hip] 08-12-2023 Episodic Other non-traumatic joint disorders (2 sources) Pain in lower limb; Translations: [Pain in unspecified joint] Onset: 08-09-2023 08-09-2023 Episodic Other nutritional; endocrine; and metabolic disorders (20 sources) Severe obesity; Translations: [Morbid (severe) obesity due to excess calories] Onset: 02-01-2023 09-08-2019 Chronic Other nutritional; endocrine; and metabolic disorders (4 sources) Body mass index 40+ - severely obese; Translations: [Body mass index (BMI) 40.0-44.9, adult] Onset: 11-14-2018 02-01-2023 Chronic Other nutritional; endocrine; and metabolic disorders (1 source) Morbid (severe) obesity due to excess calories; Translations: [Class 3 severe obesity with serious comorbidity and body mass index (BMI) of 40.0 to 44.9 in adult, unspecified obesity type (HCC)] Onset: 05-06-2023 Chronic Other nutritional; endocrine; and metabolic disorders (3 sources) Body mass index (BMI) 40.0-44.9, adult; Translations: [Body Mass Index 40.0-44.9, adult] Onset: 05-06-2023 03-17-2024 Chronic Other upper respiratory disease (20 sources) Seasonal allergic rhinitis; Translations: [Other seasonal allergic rhinitis] Onset: 01-04-2023 04-09-2014 Chronic Phlebitis; thrombophlebitis and thromboembolism (19 sources) Deep venous thrombosis 12-15-2009 Episodic Residual codes; unclassified (1 source) Obstructive sleep apnea syndrome; Translations: [Obstructive sleep apnea (adult) (pediatric)] Onset: 04-05-2023 Chronic Residual codes; unclassified (8 sources) Sleep apnea; Translations: [Sleep apnea, unspecified] Onset: 01-04-2023 05-06-2023 Chronic Residual codes; unclassified (3 sources) Sleep apnea, unspecified; Translations: [Unspecified sleep apnea] Onset: 05-06-2023 03-17-2024 Chronic Screening and history of mental health and substance abuse codes (19 sources) Tobacco use and exposure - finding 09-08-2019 Chronic Spondylosis; intervertebral disc disorders; other back problems (20 sources) Other spondylosis with radiculopathy, cervical region; Translations: [Prolapsed lumbar intervertebral disc] Onset: 08-05-2016 09-16-2019 Chronic Comment on above: L4-5 fusion Spondylosis; intervertebral disc disorders; other back problems (5 sources) Sciatica; Translations: [Sciatica, right side] Onset: 01-04-2023 01-04-2023 Episodic Thyroid disorders (12 sources) Acquired hypothyroidism; Translations: [Hypothyroidism, unspecified] Onset: 02-14-2023 06-24-2023 Chronic Unclassified (19 sources) Influenza vaccination status 09-08-2019 Unclassified (1 source) Pain in right hip; Translations: [Pain in right hip] Onset: 08-12-2023 Urinary tract infections (18 sources) Urinary tract infectious disease; Translations: [Urinary tract infection, site not specified] Onset: 03-28-2022 Episodic Past or Other Problems Problem Classification Problem Date Documented Date Episodic/Chronic Fluid and electrolyte disorders (3 sources) Hypokalemia; Translations: [Hypokalemia] Onset: 12-15-2021 Episodic Other and unspecified benign neoplasm (6 sources) Neuroma; Translations: [Benign neoplasm of peripheral nerves and autonomic nervous system, unspecified] Onset: 08-22-2011 08-22-2011 Episodic Other diseases of veins and lymphatics (2 sources) Venous stasis edema of right lower limb; Translations: [Venous insufficiency (chronic) (peripheral)] Onset: 06-13-2023 06-13-2023 Episodic Other non-traumatic joint disorders (6 sources) Arthralgia of the ankle and/or foot; Translations: [Pain in unspecified ankle and joints of unspecified foot] Onset: 03-14-2011 03-14-2011 Episodic Other non-traumatic joint disorders (6 sources) Instability of joint of left ankle; Translations: [Other instability, left ankle] Onset: 03-20-2011 03-20-2011 Episodic Other non-traumatic joint disorders (4 sources) Instability of joint of right ankle; Translations: [Other instability, right ankle] Onset: 04-23-2011 04-23-2011 Episodic Other non-traumatic joint disorders (1 source) Pain in right knee; Translations: [Pain in right knee] Onset: 10-24-2023 Episodic Other nutritional; endocrine; and metabolic disorders (2 sources) Weight gain; Translations: [Abnormal weight gain] Onset: 02-01-2023 02-01-2023 Episodic Other screening for suspected conditions (not mental disorders or infectious disease) (18 sources) Patient encounter status; Translations: [Encounter for screening for malignant neoplasm of colon] Onset: 12-06-2023 09-14-2023 Episodic Other upper respiratory infections (2 sources) Acute frontal sinusitis; Translations: [Acute frontal sinusitis, unspecified] Onset: 06-13-2023 06-13-2023 Episodic Residual codes; unclassified (2 sources) Influenza vaccination status; Translations: [Personal history of other drug therapy] Onset: 02-01-2023 02-01-2023 Episodic Residual codes; unclassified (2 sources) Tobacco non-user; Translations: [Other specified health status] Onset: 02-01-2023 02-01-2023 Episodic Unclassified (1 source) Lumbar back pain M54.50 Viral infection (1 source) Disease caused by 2019-nCoV; Translations: [COVID-19] Onset: 09-28-2023 Results Test Name Value Interpretation Reference Range Facility Glucose Tolerance 2 Houron 0 03-28-2024 Glucose Tolerance 2 Hour High [facility] Comment on above: Result Comment: FAST ING 112 H Col: 03/28/24 07 1HR GLU 213 Col: 03/28/24826 2HR GLU 242 Col: 03/28/24926 NON-GESTATIONAL GESTATIONAL FASTING 70-100 < 92 1 HOUR < 200 < 180 2 HOUR < 140 < 153 PERFORMED BY: [facility] [address] [place] [address] PATHOLOGIST SECURITY SOFTWARE ENGINEER LORRAINE DIETZ M.D. Performed By: #### G TT2 #### [facility] [address] [place], [place] [id number] [facility] Serum or plasma glucose courtney urement 2 hours post 75 gm oral glucose (mass/volume)Ordered By: Tank Xavier on 03-28-2024 Glucose 2 Hr post 75 g glucose PO [Mass/Vol] See comment [facility] Comment on above: FASTING 112 H Col: 0 03/28/24 0727 1HR GLU 213 Col: 03/28/2427 2HR GLU 242 Col: 03/28/24926 A1C with Estimated Average G afsanehn 03-06-2024 Glucose [Mass/Vol] 131 mg/dL Normal [facility] Comment on above: Result Comment: PERF ORMED BY: [place] [address] PATHOLOGIST SECURITY SOFTWARE ENGINEER LORRAINE DIETZ M.D. Performed By: #### E LF #### [facility] , #### LIPID, A1C [facility] eA #### [facility] [address] [place] [address] [place] Cholesterol [Mass/volume] in Serum or PlasmaOrdered By: Kamilah Ward on 03-06-2024 Cholesterol [Mass/Vol] 152 mg/dL Normal 140-200 [facility] Comment on above: Chol less than 200 m g/dl low riskChol 201-239 mg/dl borderline riskChol 240 mg/dl and greater high risk Result Comment: Chol less than 200 mg/dl low risk Chol 201-239 mg/dl borderline risk Chol 240 mg/dl and greater high risk Performed By: #### E LF #### [facility] , #### LIPID, A1C WT eA #### [facility] [address] [place], [place] [address] [place] Cholesterol in LDL Calc [Mas s/Vol]Ordered By: Imjaspreet Ward on 03-06-2024 Cholesterol in LDL [Mass/Vol] 78 mg/dL 0-100 [facility] Comment on above: LDL ATP III CLASSIFI CATIONLDL less than 100 mg/dL OptimalLDL 100-129 mg/dL Near or above optimalLDL 130-159 mg/dL Borderline highLDL 160-189 mg/dL HighLDL greater than 189 mg/dL Very high Cholesterol in VLDL Calc [Ma ss/Vol]Ordered By: Kamilah Ward on 03-06-2024 Cholesterol in VLDL [Mass/Vol] 20 mg/dL [facility] Enhanced Liver Fibrosis Test on 03-06-2024 Enhanced Liver Fibrosis Score 10.94 High <9.80 [facility] Comment on above: Result Comment: ELF( TM) Score Interpretation: Risk cut-offs to assess the likelihood of progression to cirrhosis and liver-related clinical events within 3.9 years following baseline ELF score (IQR: 14.0-22.4 months)*: Lower risk < 9.80 Mid risk 9.80 - 11.29 Higher risk >11.29 Note: The ELF(TM) Score is a unitless numerical value. *Alexy SA, Alexandro VW, Duong T, et al. Selonsertib for patients with bridging fibrosis or compensated cirrhosis due to MANRIQUEZ: Results from randomized phase III STELLAR trials. J Hepatol. 2020 Feb;73(1):26-39. Performed at: - [facility] [id number] Cashier Or Checker Stock Clerk: Leyla Britt MD, Phone: [phone] PERFORMED BY: [place] [address] PATHOLOGIST SECURITY SOFTWARE ENGINEER LORRAINE DIETZ M.D. Performed By: #### E LF #### [facility] , #### LIPID, A1C [facility] eA #### [address] Glucose mean value [Mass/vol ume] in Blood Estimated from glycated hemoglobinOrdered By: Kamilah Ward on 03-06-2024 Average glucose Estimated from glycated hemoglobin (Bld) [Mass/Vol] 131 mg/dL [facility] Hemoglobin A1c percentageOrd ered By: Kamilah Ward on 03-06-2024 HbA1c (Bld) [Mass fraction] 6.2 % High 4.3-5.6 [facility] Comment on above: Increased risk for d iabetes: 5.7 - 6.4diabetes: >6.4glycemic control for adults with diabetes: <7.0 Result Comment: Incr eased risk for diabetes: 5.7 - 6.4 diabetes: >6.4 glycemic control for adults with diabetes: <7.0 Performed By: #### E LF #### [facility] , #### LIPID, A1C [facility]TH eA #### [facility] [address] Lipid Panelon 03-06-2024 LDL Cholesterol,Calculated 78 mg/dL Normal 0-100 [facility] Comment on above: Result Comment: LDL ATP III CLASSIFICATION LDL less than 100 mg/dL Optimal LDL 100-129 mg/dL Near or above optimal LDL 130-159 mg/dL Borderline high LDL 160-189 mg/dL High LDL greater than 189 mg/dL Very high Performed By: #### E LF #### [facility] , #### LIPID, A1C [facility] eA #### [address] Triglyceride w/Reflex 102 mg/dL Normal 0-149 [facility] Comment on above: Result Comment: TRIG ATP III CLASSIFICATION TRIG less than 150 mg/dL Normal TRIG 150-199 mg/dL Borderline high TRIG 200-500 mg/dL High TRIG greater than 500 mg/dL Very high Standard traceable to the Center for Disease Conrtrol and Prevention (CDC) test method. Performed By: #### E LF #### [facility] , #### LIPID, A1C [facility] eA #### [facility] [address] VLDL CHOLESTEROL 20 mg/dL Normal [facility] Comment on above: Performed By: #### E LF #### [facility] , #### LIPID, A1C [facility] eA #### [facility] [address] Serum or plasma high density lipoprotein (HDL) cholesterol measurementOrdered By: Kamilah Ward on 03-06-2024 Cholesterol in HDL [Mass/Vol] 54 mg/dL Normal 23-92 [facility] Comment on above: HDL CHOL ATP-III CLA SSIFICATION Cardiovascular RiskHDL > or equal to 60 mg/dL LOWHDL < 40 mg/dL HIGH Result Comment: HDL CHOL ATP-III CLASSIFICATION Cardiovascular Risk HDL > or equal to 60 mg/dL LOW HDL < 40 mg/dL HIGH Performed By: #### E LF #### [facility] , #### LIPID, A1C WT eA #### [facility] [address] Serum or plasma total choles terol/high density lipoprotein (HDL) cholesterol mass ratOrdered By: Imad Asaad on 03-06-2024 Cholesterol.total/Nanci sterol in HDL [Mass ratio] 2.8 {ratio} Normal <5.0 [facility] Comment on above: Result Comment: PERF ORMED BY: [place] [address] PATHOLOGIST SECURITY SOFTWARE ENGINEER LORRAINE DIETZ M.D. Performed By: #### E LF #### [facility] , #### LIPID, A1C [facility] eA #### [facility] [address] Triglyceride [Mass/volume] i n Serum or PlasmaOrdered By: Imad Asaad on 03-06-2024 Triglyceride [Mass/Vol] 102 mg/dL 0-149 [facility] Comment on above: TRIG ATP III CLASSIF ICATIONTRIG less than 150 mg/dL NormalTRIG 150-199 mg/dL Borderline highTRIG 200-500 mg/dL High TRIG greater than 500 mg/dL Very highStandard traceable to the Center for Disease Conrtrol and Prevention (CDC) test method. Main OR Intraoperative Recor don 03-03-2024 Main OR Intraoperative Record Main OR Intraoperative Record IntraOp Document Type FT Summary Primary Physician: Hu Davis DO Finalized Date/Time: 03/03/24 14:57:24 Pt. Name: DEJAH DYKES/Sex: 1970 Female Med Rec #: [id number] Physician: Hu Davsi DO Financial #: [id number] Pt. Type: P Room/Bed: / Admit/Disch: 03/03/24 13:37:06 - Institution: Case Times FTPM Entry 1 Patient Times In Room 03/03/24 14:49:00 Out Room 03/03/24 14:58:00 Procedure Times Start 03/03/24 14:52:00 Stop 03/03/24 14:57:00 Anesthesia Times Last Modified By: Melinda Watts RN 03/03/24 14:57:20 Case Attendance FTPM Entry 1 Entry 2 Entry 3 Case Attendee Hu Davis DO, RN, Melinda Llanes RN, Brianda Role Performed Surgeon - Primary Pumping Plant Operator - Primary Scrub - Primary Time In 03/03/24 14:49:00 03/03/24 14:49:00 03/03/24 14:49:00 Time Out 03/03/24 14:58:00 03/03/24 14:58:00 03/03/24 14:58:00 Procedure TRANSFORAMINAL EPIDURAL TRANSFORAMINAL EPIDURAL TRANSFORAMINAL EPIDURAL STEROID STEROID STEROID INJECTIO(Bilateral) INJECTIO(Bilateral) INJECTIO(Bilateral) Comments Last Modified By: Mac DOHERTY, Melinda Watts RN, Melinda Keenan RN 03/03/24 14:57:20 03/03/24 14:57:20 03/03/24 14:57:20 Entry 4 Case Attendee Layton Harvey Role Performed Wet Char Conveyor Tender Time In 03/03/24 14:49:00 Time Out 03/03/24 14:58:00 Procedure TRANSFORAMINAL EPIDURAL STEROID INJECTIO(Bilateral) Comments Last Modified By: Melinda Watts RN 03/03/24 14:57:20 Perioperative Protocols FTPM Pre-Care Text: Implements protective measures prior to operative or invasive procedure, confirms identity before the operative or invasive procedure, verifies operative procedure, surgical site, and laterality Entry 1 Procedure(s) TRANSFORAMINAL EPIDURAL Patient Identity Birthday, ID Band STEROID Verified (select at Check, Patient INJECTIO(Bilateral) least 2): Participation Consents / H and P H&P, Surgery/Procedure Operative Site Present Verified Consent Marking Verified Surgical Site Yes Laterality Verified Yes Verified Procedure Verified Yes Correct Patient Yes Position Verified Availability Equipment, Medication, Prep Dry Yes Verified (If X-ray Applicable) PreOp Antibiotic No Time Out Melinda Watts RN, Given Participants Smith RN, Ryan Lamar DO, Bradford A., Shaniqua RT, Layton P Time Out Complete 03/03/24 14:49:00 Outcomes Met? Yes Last Modified By: Melinda Watts RN 03/03/24 14:50:16 Post-Care Text: The patient is free from signs and symptoms of injury caused by extraneous objects Allergy Information FTPM Pre-Care Text: Verifies allergies Entry 1 Allergies Reviewed? Yes Allergies Reviewed Self/Patient With Outcomes Met? Yes Last Modified By: Melinda Watts RN 03/03/24 14:47:03 Post-Care Text: The patient received appropriate medication(s) safely administered during the perioperative period Surgical Procedures FTPM Entry 1 Procedure Description Procedure TRANSFORAMINAL EPIDURAL Modifiers Bilateral STEROID INJECTION Surgeon Description L5-S1 TFESI Primary Procedure Yes Primary Surgeon Hu Davis DO Start 03/03/24 14:52:00 Stop 03/03/24 14:57:00 Anesthesia Type None Surgical Service Pain Management Wound Class 1 - Clean Last Modified By: Melinda Watts RN 03/03/24 14:57:22 General Case Data FTPM Pre-Care Text: Classifies surgical wound, implements aseptic technique, initiates traffic control Entry 1 Case Information OR Pain Proc Room Case Level Level 2 Wound Class 1 - Clean Specialty Pain Management Preop Diagnosis M54.16 Postop Same As Preop Yes Postop Diagnosis M54.16 Outcomes Met? Yes Last Modified By: Melinda Watts RN 03/03/24 14:50:50 Post-Care Text: The patient is free from signs and symptoms of infection Skin Assessment (Pre Procedure) FTPM Pre-Care Text: Implements protective measures to prevent skin/ tissue injury due to thermal or mechanical sources Evaluates for signs and symptoms of physical injury to skin and tissue Entry 1 Skin Integrity Intact, [place], Warm, & Skin Abnormality No Dry Outcomes Met? Yes Last Modified By: Melinda Watts RN 03/03/24 14:47:10 Post-Care Text: The patient is free from signs and symptoms of injury caused by extraneous objects Patient Positioning FTPM Pre-Care Text: Identifies physical alterations that require additional precautions for procedure-specific positioning, verifies presence of prosthetics or corrective devices, positions the patient, evaluates the patient for signs and symptoms of injury as a result of positioning Entry 1 Procedure TRANSFORAMINAL EPIDURAL Body Position Prone STEROID INJECTIO(Bilateral) Feet Uncrossed? Yes Left Arm Position Resting at Side Right Arm Position Resting at Side Left Leg Position Extended Right Leg Position Extended Positioning Device Pillow Under Head Large, Safety Strap (more content not included)... Normal [facility] Main OR Preoperative Recordo n 03-03-2024 Main OR Preoperative Record Main OR Preoperative Record Holding Area Document Type FTPM Summary Primary Physician: Hu Davis DO Finalized Date/Time: 03/03/24 13:55:55 Pt. Name: DEJAH DYKES/Sex: 1970 Female Med Rec #: [id number] Physician: Hu Davis DO Financial #: [id number] Pt. Type: P Room/Bed: / Admit/Disch: 03/03/24 13:37:06 - Institution: Case Times Holding FTPM Pre-Care Text: Verifies consent for planned procedure, identifies individual values and wishes concerning care, includes family members in perioperative teaching Secures patient's records' belongings, and valuables, maintains patient's dignity and privacy, and maintains patient confidentiality Entry 1 In Holding 03/03/24 13:53:00 Outcomes Met? Yes Last Modified By: Amy DOHERTY, Zofia Regalado 03/03/24 13:53:14 Post-Care Text: The patient participates in decisions affecting his or her perioperative plan of care The patient's right to privacy is maintained Surgery Checklist FTPM Entry 1 Patient Birthday, ID Band Procedure History and Physical, Identification: Check, Patient Verification: Surgical Consent, With Participation Patient NPO after Midnight: No Date/Time: 03/03/24 13:53:00 Results Reviewed 1130 Chicken and veggies Personal Items: Glasses, Jewelry Comments: Personal Items patient has on Complaints of Pain: Yes Comment: glassess, wedding ring and a watch Pain Comment: 03/14 lower back Operative Site Yes Marking: Marked By: Dr. Davis Location: Bilateral L5-S1 Availability Equipment, X-Ray Verified: Does Patient Smoke No Patient states Yes Comment - Adult Aunt-Roselyn postop adult Supervision supervision available Case Cancelled in No Holding Area see comments below for reason Last Modified By: Zofia Reyes RN 03/03/24 13:55:44 Finalized By: Zofia Reyes RN Document Signatures Signed By: Zofia Reyes RN 03/03/24 13:55 Zofia Reyes RN 03/03/24 13:55 [facility] Consent for Treatmenton 01-04 Consent for Treatment [id number]#[id number] Normal [facility] Consultation Noteon 01-29-20 Consultation Note Patient: DEJAH DYKES Age: 53 years Sex: Female : 1970 Associated Diagnoses: None Author: Tamiko Robert PA-C Subjective Chief complaint 01/29/2024 8:14 EDT lower back pain . Patient is a 53-year-old female following up today after undergoing a right-sided L5-S1 transforaminal epidural steroid injection. This was done on 10/30/2023 and gave her 90% relief up until mid January when the pain started to return. She still has 50% relief but she is once again noticing right radiating leg pain. She is also noticing some pain on the left side. She states that the right side is worse than the left side but she is noting bilateral radiating leg pain in the same pain pattern. She rates it a 5/10 when she is upright and active. The more she tries to do the worse it gets. She cannot do anything for more than 20 to 30 minutes and then her legs go numb. She is on therapy in the past this has not helped. She has had surgery in the past. This gave her relief of certain symptoms but not the symptoms. She has taken a multitude of [id number] medication without improvement. The most that she has been from the injection and she would like to get this on both sides this time around to try to get long-term relief once again. Health Status Allergies: Allergic Reactions (Selected) Severity Not Documented Bactrim- Hives. Vicodin- Hallucinations., Allergies (2) Active Severity Reaction Vicodin Hallucinations Bactrim Hives Current medications: (Selected) Prescriptions Prescribed Ambien 10 mg Tab: 10 mg = 1 tab(s), Oral, Once a day (at bedtime), PRN Insomnia, # 30 tab(s), Refills(s) 1, Pharmacy: [facility]/pharmacy #[id number], 161, cm, 09/08/19 14:29:00 EST, Height/Length Measured, 110.5, kg, 09/08/19 14:29:00 EST, Weight Measured Estrace 0.1 mg/g Cream: See Instructions, 42.5 gm, Refill(s) 5, insert 1gm vaginally & apply pea sized amount around the urethra nightly x 3 weeks, then 3x per week thereafter, [facility]/pharmacy #[id number], 162.5, cm, 04/24/22 15:43:00 EDT, Height/Length Dosing, 105, kg, 03/28/22 9:0... Ziac 5 mg-6.25 mg oral tablet: 1 tab(s), Oral, Daily, 90 tab(s), Refill(s) 1, [facility]/pharmacy #[id number] minocycline 100 mg Cap: 100 mg, Oral, Daily, # 100 cap(s), Refills(s) 1, Pharmacy: [facility]/pharmacy #[id number] Documented Medications Documented Singulair: 10 mg, Oral, qPM, Refills(s) 0, Allergy symptoms levothyroxine 50 mcg (0.05 mg) Tab: Refills(s) 0 metformin: 500 mg, Oral, QID, Refills(s) 0 potassium chloride 10 mEq ER Tab: 10 mEq = 1 tab(s), Oral, BID, Prophylaxis Problem list: All Problems Lumbar disc herniation / SNOMED CT 030664305 / Confirmed L4-5 fusion Allergic rhinitis, seasonal / SNOMED CT 652150814 / Confirmed H/O: HTN (hypertension) / SNOMED CT 122025033 / Confirmed Depression / SNOMED CT 751883053 / Confirmed Fatty liver / SNOMED CT 457157314 / Confirmed Acne rosacea / SNOMED CT 6549969361 / Confirmed Osteochondritis dissecans / 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 / Confirmed Class 3 severe obesity with body mass index (BMI) of 40.0 to 44.9 in adult / SNOMED CT 0009579715 / Confirmed Non-tobacco user / SNOMED CT 501402108 / Confirmed Influenza vaccination up to date / SNOMED CT 441966628 / Confirmed Urine frequency / SNOMED CT 161025503 / Confirmed Kidney stones / SNOMED CT 025205904 / Confirmed Frequent UTI / SNOMED CT 292257427 / Confirmed Resolved: DVT / SNOMED CT 871918928 Resolved: Kidney stones / SNOMED CT 048UE617-R174-5954-O7K4-2S [id number] Objective Vital Signs 01/29/2024 8:14 EDT Peripheral Pulse Rate 66 bpm Respiratory Rate 14 br/min Systolic Blood Pressure 128 mmHg Diastolic Blood Pressure 73 mmHg Mean Arterial Pressure, Cuff 91 mmHg General: Alert and oriented, No acute distress. Eye: Normal conjunctiva. HENT: Normocephalic, Normal hearing. Cardiovascular: No edema. Musculoskeletal Normal range of motion. Normal strength. 5/5 lower extremity strength Integumentary: Warm, Dry, [place]. Neurologic: Alert, Oriented. Psychiatric: Cooperative, Appropriate mood & affect. 14 point review of systems was negative unless otherwise noted. Results Review * Final Report * Reason For Exam M54.31, M54.16 POWERSCRIBE REPORT IMPRESSION: POSTSURGICAL AND DEGENERATIVE CHANGES OF THE LUMBAR SPINE DETAILED. EXAM: MRI of the lumbar spine without contrast History: Low back pain and right hip pain Technique: Multiplanar multisequence MRI of the lumbar spine was obtained without intravenous contrast. Comparison: MRI of the lumbar spine 01/18/2017 Findings: The conus medullaris ends normally. The alignment of the lumbar spine is anatomic. The vertebral body heights are well maintained. There is no aggressive bone marrow signal abnormality. Postsurgical changes of posterior lumbar spine fusion and posterior decompression at L5-S1 with associated susceptibility artifact. Intervertebral disc spacer is present at L5-S1. Intervertebral disc heights are maintained. (more content not included)... Normal [facility] Comment on above: Result Comment: Elec tronically Signed By: Tamiko Robert PA-C\.br\Date and Time Signed: 01/29/24 08:33 EDT Office/Clinic Note-Physician on 01-29-2024 Office/Clinic Note-Physician [id number]#[id number] Normal [facility] Office/Clinic Note-Physician [id number]#[id number] Normal [facility] Patient Correspondenceon Patient Correspondence [id number]#1.00TIFF Normal [facility] Patient Correspondence [id number]#1.00TIFF Normal [facility] Patient History Officeon Patient History Office [id number] Normal [facility] SURGICAL PATHOLOGY REFERENCE LAB CONSULTon 12-16-2023 CASE REPORT Normal [facility] Comment on above: Order Comment: Speci men Type: FORMALIN-FIXED PARAFFIN-EMBEDDED TISSUE SPECIMEN Ordering Facility: [facility] Address: [address] [place] [phone] Result Comment: Surg ical Pathology Report Case: [id number] Authorizing Provider: Carlitos Ramesh MD Collected: 12/16/2023 02:45 PM Ordering Location: [facility] Received: 12/16/2023 02:44 PM [facility] Laboratory Pathologist: Gely Wells MD Specimen: Slide(s), 11 SLIDES [id number] Performed By: #### L [id number] #### [facility] CLIA [id number] [address] [place] [address] [place] CLINICAL HISTORY CONSULT REQUESTED Normal C [facility] Comment on above: Order Comment: Speci men Type: FORMALIN-FIXED PARAFFIN-EMBEDDED TISSUE SPECIMEN Ordering Facility: [facility] Address: [address] [place] [phone] Performed By: #### L [id number] #### [facility] CLIA [id number] [address] [place] [address] [place] DIAGNOSIS COMMENT Normal [facility] Comment on above: Order Comment: Speci men Type: FORMALIN-FIXED PARAFFIN-EMBEDDED TISSUE SPECIMEN Ordering Facility: [facility] Address: [address] [place], [place] [phone] Result Comment: Than k you for allowing us the opportunity to review this case in consultation representing the liver biopsy from this 53-year-old female patient with a clinical history of fatty liver disease. No additional history has been provided. Histologic sections demonstrate cores of hepatic parenchyma with mostly preserved architecture. The portal tracts contain mild inflammatory infiltrates of predominantly lymphocytes. There is no evidence of interface activity or bile duct injury. The lobular parenchyma exhibits severe macrovesicular steatosis (70%). There are many ballooned hepatocytes. Lobular inflammation ranges from 2 to 4 foci per 20X field. There is no significant cholestasis. Provided special stains along with appropriately stained controls are reviewed. The iron stain is negative. The PAS-D stain is negative for intracytoplasmic globules in hepatocytes. The trichrome and reticulin stains highlight perisinusoidal fibrosis, periportal fibrosis, and patchy bridging fibrosis. 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 Thank you for sending this case in consultation. Please do not hesitate to contact us at [phone] with questions or if additional follow-up information becomes available. This case was reviewed in conjunction with the GI pathology fellow, Luis Mccauley M.D. Performed By: #### L [id number] #### [facility] CLIA [id number] [address] [place] [address] FINAL DIAGNOSIS Normal [facility] Comment on above: Order Comment: Speci men Type: FORMALIN-FIXED PARAFFIN-EMBEDDED TISSUE SPECIMEN Ordering Facility: [facility] Address: [address] [place] [phone] Result Comment: Live r, biopsy (A1, special stains): - Steatohepatitis with patchy bridging fibrosis. - See comment. Performed By: #### L [id number] #### [facility] CLIA [id number] [address] [place] [address] OF [facility] FINAL PERFORMING LAB Normal [facility] Comment on above: Order Comment: Speci men Type: FORMALIN-FIXED PARAFFIN-EMBEDDED TISSUE SPECIMEN Ordering Facility: [facility] Address: [address] [place] [phone] Result Comment: Diag nostic interpretation performed at [facility], [address] [place], [place] [id number] CLIA# [id number] Greenhouse Specialist: Krunal Ferguson M.D. Performed By: #### L [id number] #### [facility] CLIA [id number] [address] [place] [address] [place] [id number] [place] Activated partial thrombopla stin time (aPTT) in platelet poor plasma by coagulation aOrdered By: Forest Giordano on 12-06-2023 aPTT Coag (PPP) [Time] 28.6 s 25.1-36.5 [facility] Comment on above: A hematocrit value g reater than 55% may lead to inaccurate results in coagulation testing. Patients having hematocrit values >55% require a special collection tube for coagulation studies. Please contact the laboratory at [phone] guided biopsyon CT guided biopsy [facility] [place] [address] CT Scan Report Signed Patient: Dejah Dykes MR#: [id number] : 1970 Acct:[id number] Age/Sex: 53 / F ADM Date: 12/06/23 Loc: CT Room: Type: [facility] Attending Dr: Forest Giordano APRN Copies to: Forest Giordano APRN Ordering Provider: Forest Giordano APRN Date of Service: 12/06/23 CT/CT guided biopsy: K76.0 - Fatty (change of) liver, not elsewhere classified CT GUIDED LIVERBIOPSY: CLINICAL HISTORY: Fatty liver. COMPARISON : none FINDINGS: After questions were answered, informed consent was obtained. The patient was placed supineon the CT table and the left lobe was selected for biopsy. The skin over the left lobewas prepped and draped in normal sterile fashion. 1% lidocaine was utilized for local anesthesia. Utilizing CT guidance, an 18-gauge biopince system was advanced into the left lobe and 3 core biopsies were obtained. After the sample was deemed adequate by pathology, the needle was withdrawn. Hemostasis was achieved. Bandage was applied. The patient tolerated procedure well without immediate complication. Please note that the patient was monitored throughout the procedure by nursing personnel. This CT exam was performed using one or more following dose reduction techniques: Automated exposure control, adjustment of the mA and/or kV according to patient size, or use of iterative reconstruction technique. CT/CT guided biopsy IMPRESSION: Successful CT-guided liver biopsy. Impression dictated by: Brian Walton Jr., D.OGorge12/06/2023 1:59 PM Dictation Location: [place] [address] Transcribed By: [facility] 12/06/23 1359 Dictated By: Brian Walton Jr, DO 12/06/23 1355 Signed By: 12/06/23 1359 Normal [facility] Coagulation Profileon 2023 aPTT Coag (Bld) [Time] 28.6 s Normal 25.1-36.5 [facility] Comment on above: Order Comment: STAT FOR BX Result Comment: A he matocrit value greater than 55% may lead to inaccurate results in coagulation testing. Patients having hematocrit values >55% require a special collection tube for coagulation studies. Please contact the laboratory at [phone] for redraw instructions. PERFORMED BY: [place] [address] PATHOLOGIST SECURITY SOFTWARE ENGINEER LORRAINE DIETZ M.D. Performed By: #### P P, PLT #### [address] INR in Platelet poor plasma by Coagulation assayOrdered By: Forest Giordano on 12-06-2023 INR Coag (PPP) [Relative time] 1.0 {INR} Normal [facility] Comment on above: INR Therapeutic Rang e A) Pre- and Peroperative OAT started two weeks before surgery. NOT HIP SURGERY: 1.5 - 2.5 HIP SURGERY: 2 - 3B) Primary and secondary prevention of venous THROMBOSIS: 2 - 3C) Active venous thrombosis, pulmonary embolismand prevention of recurrent venous thrombosis: 2 - 3D) Prevention of arterial thromboembolismincluding patients with mechanical heart valves: 3 - 4.5 Order Comment: STAT FOR BX Result Comment: INR Therapeutic Range A) Pre- and Peroperative OAT started two weeks before surgery. NOT HIP SURGERY: 1.5 - 2.5 HIP SURGERY: 2 - 3 B) Primary and secondary prevention of venous THROMBOSIS: 2 - 3 C) Active venous thrombosis, pulmonary embolism and prevention of recurrent venous thrombosis: 2 - 3 D) Prevention of arterial thromboembolism including patients with mechanical heart valves: 3 - 4.5 Performed By: #### P P, PLT #### [facility] [address] [place] [id number] [facility] Seb 12-06-2023 L Specimen: [id number] Received: 12/06/23 Status: NAKUL Luisa Num: [id number] Spec Type: Surgical Subm Dr: Brian Walton Jr, DO Tissues: A Liver - Needle Biopsy (LFT LIVER, RANDOM BX) Procedures: Trichrome, Reticulum I, Iron, HE/3, Gross/Micro L5, CK 7, PAS - Hemat, PAS - Diastase Age/ Patient Sex Location Account Attending Physician Dejah Dykes 53/F CT [id number] Forest Giordano APRN SPEC NUM: [id number] RECD: 12/06/23 STATUS: ELNEAAlhaji SANCHEZ NUM: [id number] LEONEL: 12/06/[address]: Brian Walton Jr, DO ENTERED: 12/06/23 [facility] DR: Forest Giordano APRN SPEC TYPE: Surgical DEPT: S ORDERED: Trichrome, Reticulum I, Iron, HE/3, Gross/Micro L5, CK 7, PAS - Hemat, PAS - Diastase ORDERED: Trichrome, Reticulum I, Iron, HE/3, Gross/Micro L5, CK 7, PAS - Hemat, PAS - Diastase Supplemental Report Addendum 1 Entered: 12/25/23 Supplemental for findings of consultation report from [facility]: FINAL DIAGNOSIS: -Steatohepatitis with patchy bridging fibrosis -See comment Note 1: -Please also see entire report on file for detailed description Note 2: -Per description in the diagnosis comment, there is no evidence of interface activity or bile duct injury. Therefore, theoretically or presumably, there is no significant chance for the development of bridging fibrosis of note. There are patchy significant pericellular fibrosis, and may not be easily distinguishable from bridging fibrosis on the needle core biopsy of note Specimen: [id number] Received: 12/06/23 Status: NAKUL Sanchez Num: [id number] Spec Type: Surgical Subm Dr: Brian Walton Jr, DO Tissues: A Liver - Needle Biopsy (LFT LIVER, RANDOM BX) Procedures: Trichrome, Reticulum I, Iron, HE/3, Gross/Micro L5, CK 7, PAS - Hemat, PAS - Diastase Patient: Dejah Dykes [id number] (Continued) Specimen: [id number] Received: 12/06/23 (Continued) Supplemental Report (Continued) Signed (signature on file) Bonilla Ramesh MD 12/12/23 1143 Specimen: [id number] Received: 12/06/23 Status: NAKUL Merchanttal Num: [id number] Spec Type: Surgical Subm Dr: Brian Walton Jr, DO Tissues: A Liver - Needle Biopsy (LFT LIVER, RANDOM BX) Procedures: Trichrome, Reticulum I, Iron, HE/3, Gross/Micro L5, CK 7, PAS - Hemat, PAS - Diastase Patient: Dejah Dykes [id number] (Continued) Specimen: [id number] Received: 12/06/23 (Continued) Supplemental Report (Continued) Addendum Signed (signature on file) Bonilla Ramesh MD 12/25/23 0950 Pathological Diagnosis Random left lobe of liver core biopsy: -Severe chronic steatosis and chronic fatty liver disease of the macrovesicular type (mostly large droplet and occasional small droplet) (> 70%, grade 3?4/4) with the apparently related steatohepatitis, and at least mild hepatic fibrosis (See Below) -Occasional mild portal chronic inflammation with only occasional rare plasma cells noticed -Patchy moderate intralobular chronic inflammation with associated lymphohistiocytic infiltration due to moderate centrilobular steatohepatitis, including rare (at least 1 ) tiny lymphoid aggregate and rare eosinophils -At least 1 tiny intralobular cluster of PMN -Occasional slightly scattered nuclear glycogenation -The PAS stain highlights the almost diffusely scattered steatosis -The PAS-D stain is negative for abnormal intracytoplasmic inclusion body of the hepatocytes -The iron stain is negative for hepatic siderosis (score 0/4) -The reticulin stain showing patchy mild lobular disarray from steatotic activity -The trichrome stain showing patchy significant pericellular fibrosis, and occasional mild portal fibrosis with occasional mild periportal fibrosis -The CK7 highlights the occasional mild ductular activity, and the occasional partially degenerated hepatocytes. Possibility of the injured interlobular bile duct in rare portal area also cannot be completely excluded -Overall necroinflammatory activity is at least grade 2/3 -The overall fibrosis extent is at least stage II/IV Note: -The overall finding is compatible with the severe chronic fatty liver disease with moderate steatohepatitis (MANRIQUEZ, no history of s (more content not included)... Normal [facility] Platelets [#/volume] in Bloo d by Automated countOrdered By: Forest Giordano on 12-06-2023 Platelets (Bld) [#/Vol] 211 10*3/uL Normal 150-450 [facility] Comment on above: Order Comment: STAT FOR BX Result Comment: PERF ORMED BY: [place] [address] PATHOLOGIST SECURITY SOFTWARE ENGINEER LORRAINE DIETZ M.D. Performed By: #### P P, PLT #### [address] Prothrombin time (PT)Ordered By: Forest Giordano on 12-06-2023 PT Coag (PPP) [Time] 11.3 s Normal 9.0-12.9 [facility] Comment on above: A hematocrit value g reater than 55% may lead to inaccurate results in coagulation testing. Patients having hematocrit values >55% require a special collection tube for coagulation studies. Please contact the laboratory at [phone] for redraw instructions. Order Comment: STAT FOR BX Result Comment: A he matocrit value greater than 55% may lead to inaccurate results in coagulation testing. Patients having hematocrit values >55% require a special collection tube for coagulation studies. Please contact the laboratory at [phone] for redraw instructions. Performed By: #### P P, PLT #### [address] CNOVon 11-11-2023 CNOV Office Visit (STED) -- DEJAH DYKES ([id number]) 1970 F Date Time Provider Department 11/11/23 9:20 AM ALFREDO CRUZ During your visit today, we recorded the following information about you: Pulse Blood pressure Weight Height 75/minute 138/81 116 kg 1.626 m Alfredo Cruz MD 11/11/2023 9:28 AM Signed [facility] FOLLOW-UP VISIT Last visit: 09/24/2023 HISTORY OF PRESENT ILLNESS: Dejah Dykes is a 53 year old female with history of class 3 obesity with co-morbidities of pre-DM, HTN, SAIMA and OA who presents today for follow-up on weight management. Current weight loss medication: none Side effects of treatment: n/a Patient is here today to discuss about bariatric surgery. She was recently diagnosed with liver cirrhosis and her quarter inspector and rheumatology both recommended to consider bariatric surgery versus medications for weight loss. Review Of Systems See HPI and/or patient questionnaire. MEDICAL, FAMILY, and SOCIAL history reviewed and updated in chart ACTIVE PROBLEM LIST Ocd (Osteochondritis Dissecans) of Talus Pain in Joint, Ankle and Foot Left Ankle Instability Osteoarthrosis, Unspecified Whether Generalized Or Localized, Ankle and Foot Right Ankle Instability Neuroma Acquired Hypothyroidism Acne Rosacea Class 3 Severe Obesity With Body Mass Index (Bmi) of 40.0 to 44.9 in Adult (Hcc) Essential Hypertension Kidney Stones Sleep Apnea in Adult Current Outpatient Medications on File Prior to Visit Medication Sig metFORMIN ER (GLUCOPHAGE XR) 500 mg 24 hr tablet First week take one tablet with breakfast daily; second week: take one tablet with breakfast and one tablet with dinner; third week: take two pills with breakfast and one pill with dinner; fourth week and onwards: take two pills with breakfast and two pills with dinner. oxyCODONE-acetaminophen (PERCOCET) 5-325 mg tablet Take 1 tablet by mouth q 6 HR. pregabalin (LYRICA) 75 mg capsule Take 75 mg by mouth. tirzepatide, weight loss (ZEPBOUND) 2.5 mg/0.5 mL pen injector Inject 2.5 mg subcutaneously one time a week. levothyroxine 50 mcg cap Take 50 mcg by mouth daily before breakfast. potassium chloride 20 mEq TbER Take 20 mEq by mouth once daily. bisoprolol-hydroCHLOROthia zide (ZIAC) 5-6.25 mg per tablet Take by mouth. zolpidem (AMBIEN) 10 mg ORAL Tab Take 1 tablet by mouth at bedtime as needed. for insomnia. montelukast (SINGULAIR) 10 mg ORAL tablet Take 1 tablet by mouth daily at bedtime. Minocycline 135 mg ORAL Tb24 Take by mouth. No current facility-administered medications on file prior to visit. PHYSICAL EXAM: BP 138/81 Pulse 75 Ht 162.6 cm (5' 4 ) Wt 116 kg (255 lb 11.7 oz) LMP (LMP Unknown) SpO2 100% BMI 43.90 kg/m? BP: 138/81 Pulse: 75 SpO2: 100 % General: well appearing PERTINENT LABORATORY AND IMAGING: All pertinent laboratory / test results were reviewed. ASSESSMENT/PLAN: (E66.01, Z68.41) Class 3 severe obesity with serious comorbidity and body mass index (BMI) of 40.0 to 44.9 in adult, unspecified obesity type (HCC) (primary encounter diagnosis) Patient comes today for weight management, obesity and its comorbidities treatment. Briefly discussed the different kinds of surgeries and their benefits. Recommended BMI referral. Recommended to start metformin and continue per BMI recommendations. Orders placed: Orders Placed This Encounter bariatric consult Standing Status: Future Standing Expiration Date: 11/10/2024 Scheduling Instructions: The first step for considering bariatric (weight loss) surgery at [facility] is to watch the online seminar on the following website. Registration to the weight loss program will also be done online. [email or web address] Alternatively, to schedule appointment, please call [phone] Order Specific Question: Have you discussed weight management with your patient? Answer: Yes Order Specific Question: Are you requesting assessment for possible Bariatric Surgery for your patient? Answer: Yes Order Specific Question: Does consulting provider have [facility] Epic access? Answer: Yes Follow up PRN Signed: Alfredo Cruz MD Endocrinology and Metabolism [facility] Alfredo Cruz MD 11/11/2023 9:20 AM Signed BARIATRIC REFERRAL The first step for considering bariatric (weight loss) surgery at [facility] is to watch the online seminar on the following website. Registration to the weight loss program will also be done online. [email or web address] Links: [email or web address] [email or web address] [id number]* [id number] (more content not included)... Normal [facility] Consent for Procedure/Surger yon 10-30-2023 Consent for Procedure/Surgery [id number]#1.00TIFF Normal [facility] Consent for Treatmenton 10-04 Consent for Treatment [id number]#1.00TIFF Normal [facility] Discharge Instructionson Discharge Instructions [id number]#1.00TIFF Normal [facility] IntraOperative Documentson 0 10-30-2023 IntraOperative Documents [id number]#1.00TIFF Normal [facility] IntraOperative Documents [id number]#1.00TIFF Normal [facility] Main OR Intraoperative Recor don 10-30-2023 Main OR Intraoperative Record IntraOp Document Type FTPM Summary Primary Physician: Hu Davis DO Finalized Date/Time: 10/30/23 11:28:27 Pt. Name: DEJAH DYKES/Sex: 1970 Female Med Rec #: [id number] Physician: Hu Davis DO Financial #: [id number] Pt. Type: P Room/Bed: / Admit/Disch: 10/30/23 09:52:23 - Institution: Case Times FTPM Entry 1 Patient Times In Room 10/30/23 11:17:00 Out Room 10/30/23 11:29:00 Procedure Times Start 10/30/23 11:20:00 Stop 10/30/23 11:28:00 Anesthesia Times Last Modified By: Melinda Watts RN 10/30/23 11:28:22 Case Attendance FTPM Entry 1 Entry 2 Entry 3 Case Attendee Hu Davis DO, RN, Melinda Adames RN, Rita Luda Role Performed Surgeon - Primary Pumping Plant Operator - Primary Scrub - Primary Time In 10/30/23 11:17:00 10/30/23 11:17:00 10/30/23 11:17:00 Time Out 10/30/23 11:29:00 10/30/23 11:29:00 10/30/23 11:29:00 Procedure TRANSFORAMINAL EPIDURAL TRANSFORAMINAL EPIDURAL TRANSFORAMINAL EPIDURAL STEROID INJECTIO(Right) STEROID INJECTIO(Right) STEROID INJECTIO(Right) Comments Last Modified By: Mac DOHERTY, Melinda Watts RN, Melinda Keenan RN 10/30/23 11:28:23 10/30/23 11:28:23 10/30/23 11:28:23 Entry 4 Case Attendee Dean Hayden Role Performed Wet Char Conveyor Tender Time In 10/30/23 11:17:00 Time Out 10/30/23 11:29:00 Procedure TRANSFORAMINAL EPIDURAL STEROID INJECTIO(Right) Comments Last Modified By: Melinda Watts RN 10/30/23 11:28:23 Perioperative Protocols FTPM Pre-Care Text: Implements protective measures prior to operative or invasive procedure, confirms identity before the operative or invasive procedure, verifies operative procedure, surgical site, and laterality Entry 1 Procedure(s) TRANSFORAMINAL EPIDURAL Patient Identity Birthday, ID Band STEROID INJECTIO(Right) Verified (select at Check, Patient least 2): Participation Consents / H and P HandP, Surgery/Procedure Operative Site Present Verified Consent Marking Verified Surgical Site Yes Laterality Verified Yes Verified Procedure Verified Yes Correct Patient Yes Position Verified Availability Equipment, Medication, Prep Dry Yes Verified (If X-ray Applicable) PreOp Antibiotic No Time Out Melinda Watts RN, Given Participants Zacarias DOHERTY, Ryan Plascencia DO, Bradford A., Dean Hayden Time Out Complete 10/30/23 11:17:00 Outcomes Met? Yes Last Modified By: Melinda Watts RN 10/30/23 11:18:29 Post-Care Text: The patient is free from signs and symptoms of injury caused by extraneous objects Allergy Information FTPM Pre-Care Text: Verifies allergies Entry 1 Allergies Reviewed? Yes Allergies Reviewed Self/Patient With Outcomes Met? Yes Last Modified By: Melinda Watts RN 10/30/23 11:18:36 Post-Care Text: The patient received appropriate medication(s) safely administered during the perioperative period Surgical Procedures FTPM Entry 1 Procedure Description Procedure TRANSFORAMINAL EPIDURAL Modifiers Right STEROID INJECTION Surgeon Description L5/S1 + S1 TFESI Primary Procedure Yes Primary Surgeon Hu Davis DO Start 10/30/23 11:20:00 Stop 10/30/23 11:28:00 Anesthesia Type None Surgical Service Pain Management Wound Class 1 - Clean Last Modified By: Melinda Watts RN 10/30/23 11:28:24 General Case Data FTPM Pre-Care Text: Classifies surgical wound, implements aseptic technique, initiates traffic control Entry 1 Case Information OR Pain Proc Room Case Level Level 2 Wound Class 1 - Clean Specialty Pain Management Preop Diagnosis M54.16 Postop Same As Preop Yes Postop Diagnosis M54.16 Outcomes Met? Yes Last Modified By: Melinda Watts RN 10/30/23 11:19:07 Post-Care Text: The patient is free from signs and symptoms of infection Skin Assessment (Pre Procedure) FTPM Pre-Care Text: Implements protective measures to prevent skin/ tissue injury due to thermal or mechanical sources Evaluates for signs and symptoms of physical injury to skin and tissue Entry 1 Skin Integrity Intact, [place], Warm, and Skin Abnormality No Dry Outcomes Met? Yes Last Modified By: Melinda Watts RN 10/30/23 11:19:15 Post-Care Text: The patient is free from signs and symptoms of injury caused by extraneous objects Patient Positioning FTPM Pre-Care Text: Identifies physical alterations that require additional precautions for procedure-specific positioning, verifies presence of prosthetics or corrective devices, positions the patient, evaluates the patient for signs and symptoms of injury as a result of positioning Entry 1 Procedure TRANSFORAMINAL EPIDURAL Body Position Prone STEROID INJECTIO(Right) Feet Uncrossed? Yes Left Arm Position Resting at Side Right Arm Position Resting at Side Left Leg Position Extended Right Leg Position Extended Positioning Device Pillow Under Head Large, Safety Strap, Pillow Large Under Knees Press Points C (more content not included)... Normal [facility] Main OR Preoperative Recordo n 10-30-2023 Main OR Preoperative Record Holding Area Document Type FTPM Summary Primary Physician: Hu Davis DO Finalized Date/Time: 10/30/23 10:19:44 Pt. Name: DEJAH DYKES/Sex: 1970 Female Med Rec #: [id number] Physician: Hu Davis DO Financial #: [id number] Pt. Type: P Room/Bed: / Admit/Disch: 10/30/23 09:52:23 - Institution: Case Times Holding FTPM Pre-Care Text: Verifies consent for planned procedure, identifies individual values and wishes concerning care, includes family members in perioperative teaching Secures patient's records' belongings, and valuables, maintains patient's dignity and privacy, and maintains patient confidentiality Entry 1 In Holding 10/30/23 10:17:00 Outcomes Met? Yes Last Modified By: Krystina Madden RN 10/30/23 10:17:51 Post-Care Text: The patient participates in decisions affecting his or her perioperative plan of care The patient's right to privacy is maintained Surgery Checklist FTPM Entry 1 Patient Birthday, ID Band Procedure History and Physical, Identification: Check, Patient Verification: Surgical Consent, With Participation Patient NPO after Midnight: No Date/Time: 10/30/23 10:17:00 Results Reviewed banana Personal Items: Glasses Comments: Complaints of Pain: Yes Pain Comment: 03/14 right low back Operative Site Yes Marked By: Dr Davis Marking: Location: right L5/S1 + S1 TFESI Availability Equipment, X-Ray Verified: Does Patient Smoke No Patient states Yes Comment - Adult mom-corinne postop adult Supervision supervision available Case Cancelled in No Holding Area see comments below for reason Last Modified By: Krystina Madden RN 10/30/23 10:19:41 Finalized By: Krystina Madden RN Document Signatures Signed By: Krystina Madden RN 10/30/23 10:19 [facility] Insurance Correspondence Off ice10-29-2023 Insurance Correspondence Office [id number]#2.00TIFF [facility] Patient Correspondenceon Patient Correspondence [id number]#1.00TIFF [facility] XR knee RT 3V - NOT FOR ER U [place] 10-24-2023 XR knee RT 3V - NOT FOR ER USE [facility] [place] [place] [address] XRay Report Signed Patient: Dejah Dykes MR#: [id number] : 1970 Acct:[id number] Age/Sex: 53 / F ADM Date: 10/24/23 Loc: ICXD Room: Type: [facility] Attending Dr: Jorge Alberto Rowe MD Copies to: Jorge Alberto Rowe MD Ordering Provider: Jorge Alberto Rowe MD Date of Service: 10/24/23 XR/XR knee RT 3V - NOT FOR ER USE: KNEE PAIN 3 views right knee plain film COMPARISON: None HISTORY: Right knee pain ACUTE FINDINGS: No acute findings DEGENERATIVE CHANGE: Minor spurring. Adequate joint spaces SOFT TISSUE FINDINGS: Unremarkable JOINT EFFUSION: None POSTOP CHANGES: None BONE MINERALIZATION: Adequate XR/XR knee RT 3V - NOT FOR ER USE IMPRESSION: Mild degeneration Impression dictated by: Ranjeet Zheng M.D.10/24/2023 5:06 PM Dictation Location: [place] [address] Transcribed By: [facility] 10/24/231705 Dictated By: Ranjeet Zheng DO 10/24/231704 Signed By: 10/24/231705 Normal [facility] Insurance Correspondence Off iceon 10-18-2023 Insurance Correspondence Office [id number]#1.00TIFF Normal [facility] Consent for Treatmenton 10-03 Consent for Treatment [id number]#1.00TIFF Normal [facility] Consultation Noteon 10-17-19 Consultation Note Patient is presentin g with complaints of low back pain and right-sided radicular symptoms is been going on for the past 6 months or longer. She had spine surgery in 2018 and was doing very well after that but 1 to 2 years afterward she developed back pain that was worse as well as radicular symptoms down the lateral and posterior aspect of her leg all the way to the foot. This is worse with any standing or walking and she has tried a significant number of interventions thus far without lasting relief inclusive of medications such as NSAIDs, acetaminophen, pregabalin, opioid medication and none of these been significant lasting affected. She has had physical therapy in the remote past and does participate in home stretching strengthening exercises without significant lasting relief. 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 DIMPLE Score: 52% PHQ-2: 2 Patient denies any symptoms of progressively worsening upper/lower extremity weakness, progressively worsening gait abnormality, new onset bowel/bladder incontinence/ urinary retention, or saddle anesthesia. No new or worsening symptoms of fever, chills, night sweats. 14 Point Review of systems negative unless otherwise noted. General: No acute distress. Patient appears well-nourished. HEENT: Head is normocephalic and external ears are normal in appearance. Cardiovascular: No signs of poor perfusion and no peripheral edema Pulmonary: Nonlabored breathing, symmetric chest movement. GI: Abdomen nondistended Integumentary: No lesions Musculoskeletal: Nontender to palpation over the paraspinal muscles, facets, and sacroiliac joints. Tender to palpation lumbar paraspinal musculature. Neurologic: Alert, oriented x3. 5/5 strength grossly in the bilateral upper extremities. Sensation intact to light touch in the bilateral upper extremities. 5/5 strength grossly in the bilateral lower extremities. Sensation intact to light touch in the bilateral lower extremities, except slightly diminished right L4 and L5 dermatome compared to contralateral side. Special Testing: History, physical examination, and personal review of pertinent imaging results indicate a diagnosis of: -Lumbar postlaminectomy pain syndrome -Lumbar radiculopathy and a right L5 and S1 dermatomal distribution Plan: -We lengthy discussion about her current symptoms we discussed that it be reasonable for her to continue on Lyrica 75 mg twice daily, we also encouraged follow-up with her php software engineer to discuss possibility of any autoimmune reasons for arthritis in different regions -We discussed that we will try to perform a right-sided L5/S1 and S1 transforaminal epidural steroid injection after reviewing her MRI it does appear that she has 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 Patient was counseled on the above diagnosis and treatment, all questions were answered and patient agrees to adhere to the plan above. Risk and benefits of appropriate procedures and medications were reviewed as well with patient, who voiced understanding and agreeance. Patient was counseled on appropriate use of opioids if prescribed or renewed today and naloxone was offered to patient if opioids were prescribed or maintained at this visit. PHQ-2 scoring reviewed with patient and discussed seeking treatment for depression or mood disorder as appropriate. Patient was counseled on smoking cessation and/or continuing to abstain from nicotine/tobacco products as appropriate based on history; as smoking/nicotine can contribute to increased pain overall and decreased wound healing. Patient counseled on maintaining a healthy BMI as part of the total treatment of their pain and to reduce stress/strain on joints. Patient invited to return or call with any questions or concerns that arise. [facility] Comment on above: Result Comment: Elec tronically Signed By: Hu Davis DO.br\Date and Time Signed: 10/17/23 09:22 EDT HIPAA Forms Officeon 024 HIPAA Forms Office [id number]#1.00TIFF [facility] Legal Correspondence Officeo n 10-17-2023 Legal Correspondence Office [id number]#1.00TIFF [facility] Legal Correspondence Office [id number]#1.00TIFF [facility] Office/Clinic Note-Physician on 10-17-2023 Office/Clinic Note-Physician [id number]#1.00TIFF [facility] Patient Correspondenceon Patient Correspondence [id number]#1.00TIFF [facility] Patient Correspondence [id number]#1.00TIFF [facility] Patient Correspondence [id number]#1.00TIFF [facility] Patient Correspondence [id number]#1.00TIFF [facility] Patient Correspondence [id number]#1.00TIFF Normal [facility] Patient History Officeon Patient History Office [id number]#1.00TIFF Normal [facility] PT - Orderson 10-14-2023 PT - Orders [id number]#1.00TIFF Normal [facility] Reportability Response - Pub [facility] Healthon 10-01-2023 Reportability Response - Public Health {[id number]}XML Normal [facility] Consent for Treatmenton 09-06 Consent for Treatment [id number]#1.00TIFF Normal [facility] Discharge Instructionson Discharge Instructions [id number]#1.00TIFF Normal [facility] ED Clinical Summaryon 2023 ED Clinical Summary (Inserted Image. Carrie ble to display) [place] [id number] ED Clinical Summary Person Information Name: DEJAH DYKES [facility] Age: 53 Years : 1970 Sex: Female Language: Greek PCP: Lenora SANTOS PA-C Marital Status: MRN: Visit Id: Visit Reason: Throat pain - Adult; Sinus Pain/Congestion; Body aches; Cough; FEVER, COUGH, CONGESTED, Speciality: Acuity: 4 Enc Type: Emergency Med Service: Emergency Arrival: 09/28/2023 14:44:25 Discharge: 09/28/2023 15:53:34 LOS: 000 01:09 Checkin: 09/28/2023 14:44:25 Checkout: 09/28/2023 15:53:34 Dispo Type: Home (Routine DC) EVENTS: Event Name Event Status Request Date/Time Start Date/Time Complete Date/Time Arrive Complete 09/28/2023 14:44:25 09/28/2023 14:44:25 09/28/2023 14:44:25 Document Home Meds Request 09/28/2023 14:44:25 Triage Complete 09/28/2023 14:44:25 09/28/2023 15:00:44 09/28/2023 15:00:44 Registration Complete 09/28/2023 14:52:22 09/28/2023 14:52:22 09/28/2023 14:52:22 Reg Complete Request 09/28/2023 14:52:22 Reg Bed Request Complete 09/28/2023 14:52:22 09/28/2023 14:52:22 09/28/2023 14:52:22 Bed Assign Complete 09/28/2023 14:55:18 09/28/2023 14:55:18 09/28/2023 14:55:18 Dr Exam Complete 09/28/2023 14:55:18 09/28/2023 15:20:02 09/28/2023 15:20:02 RN Exam Complete 09/28/2023 14:55:18 09/28/2023 15:27:01 09/28/2023 15:27:01 Pending Labs Complete 09/28/2023 14:58:26 09/28/2023 15:29:28 Lab Complete 09/28/2023 14:58:26 09/28/2023 15:29:28 Swab Complete 09/28/2023 14:58:26 09/28/2023 15:26:25 Pending Labs Request 09/28/2023 15:13:02 Registration Request 09/28/2023 15:20:02 Meds Admin Complete 09/28/2023 15:37:05 09/28/2023 15:48:03 Discharge Complete 09/28/2023 15:38:35 09/28/2023 15:53:43 09/28/2023 15:53:43 Dr Exam Complete 09/28/2023 15:47:22 09/28/2023 15:47:22 09/28/2023 15:47:22 Transfer Complete 09/28/2023 15:53:43 09/28/2023 15:53:43 09/28/2023 15:53:43 ADDRESS: [id number] [facility] [id number] PHYS DOC NOTES: MEDICAL INFORMATION: Prescriptions Given: Medications to Continue with No Changes Other Medications bisoprolol-hydrochlorothia zide (Ziac 5 mg-6.25 mg oral tablet) 1 Tablets By Mouth every day. Refills: 1. estradiol topical (Estrace 0.1 mg/g Cream) insert 1gm vaginally & apply pea sized amount around the urethra nightly x 3 weeks, then 3x per week thereafter. Refills: 5. levothyroxine (levothyroxine 50 mcg (0.05 mg) Tab) meloxicam (meloxicam 15 mg oral tablet) 1 Tablets By Mouth every day. minocycline (minocycline 100 mg Cap) 100 Milligram By Mouth every day. Refills: 1. montelukast (Singulair) 10 Milligram By Mouth once a day (in the evening). potassium chloride (potassium chloride 10 mEq ER Tab) 1 Tablets By Mouth 2 times a day. zolpidem (Ambien 10 mg Tab) 1 Tablets By Mouth once a day (at bedtime) as needed Insomnia. Refills: 1. PATIENT EDUCATION INFORMATION: Instructions: COVID-19 Follow up: With: Address: When: TOM RENEE, Lenora Little, [facility] [place] [address] In 3 days 10/01/2023 DIAGNOSIS: 1:COVID Normal [facility] ED Note-Physicianon 09-28-19 ED Note-Physician Basic Information Time Seen: Lara Reyes PA-C 09/28/2023 15:20 Chief Complaint Pt states that shes been not been feeling good since saturday with congestion, fever and body aches. Pt took tylenol at 1400. History of Present Illness Patient is a 53-year-old female with history of HTN, hypothyroidism who presents to the ED for evaluation of flulike symptoms x 4 days. Patient endorses nasal congestion, myalgias, fever with Tmax 103 aurally, sore throat, dry cough, generalized weakness and malaise. She said yesterday she had 1 episode of nonbloody diarrhea. She has decreased appetite. She has been taking Sudafed allergy and today she took DayQuil. Notes that her was sick first although his symptoms have improved and hers have not. She denies any chest pain, shortness of breath, focal weakness, dizziness or lightheadedness, abdominal pain, nausea, vomiting, dysuria, hematuria, back pain. Daily meds minocycline, Singulair, Lyrica, antihypertensive, potassium, Ambien Review of Systems A 10 point review of systems is negative except as noted above. Medical and Surgical History: Reviewed and noted Social history: Lives at home Substance use: Denies Physical Exam Vitals & Measurements T: 37.0 ?C(Oral) HR: 107(Peripheral) RR: 18 BP: 138/85 SpO2: 100% HT: 162 cm WT: 116 kg BMI: 44.2 Appearance: Elevated BMI. Nontoxic-appearing, alert and awake. Speaking in complete sentences. Calm. Cooperative. Vital signs reviewed, slightly tachycardic and hypertensive otherwise WNL Skin: Warm, dry, intact. Normal for age and ethnicity. No ecchymosis, open wounds, or rashes. NECK: Bilateral. Anterior Cervical lymphadenopathy normal range of motion Eyes: PERRL. Vision grossly intact. ENT: Buccal mucosa pink and moist. Uvula is midline. Rhinorrhea. Nasal congestion. Oropharynx is injected without tonsillar edema nor exudate. Bilateral TMs bulging without erythema. No mastoid tenderness nor swelling. Hearing grossly normal Respiratory: LCTA b/l with normal bilateral excursion. No wheezes, rhonchi, rales. Cardiovascular: Tachycardiac regular rhythm, no murmurs. 2+ symmetrical radial and dorsalis pedis pulses. Normal cap refill. No LE edema. Neuro: Alert and awake, speech Clear, cranial nerves grossly intact. Extremities: No deformity noted on exam. Patient spontaneously moves all 4 extremities. . Medical Decision Making Limitations to history: None Nursing Notes: Reviewed and utilized the nursing notes. Previous records reviewed: Reviewed stable cleaner note 09/12/2023. Patient seen for hypertension. Noted that she had had a hypothyroidism flare that caused joint pain. Was recommended she try furosemide. Elevate lower extremities and wear compression stockings. MDM: Patient is a 53-year-old female who presents to the ED for evaluation of multiple flulike symptoms. On exam her lungs are clear to auscultation. I have no suspicion for pneumonia. Oropharynx is injected without tonsillar edema nor exudate. No peritonsillar abscess. No otitis media. Abdomen is soft and nontender, I have no suspicion for any acute intra-abdominal pathology. COVID, flu and strep were obtained prior to the start of my shift. COVID is positive. Is outside of the window for Paxlovid. Appropriate for: Outpatient mgmt Assessment/Plan 1. COVID (U07.1: COVID-19) Orders: ketorolac, 30 mg = 1 mL, Injection, IntraMuscular, Once, Stop date 09/28/23 15:36:00 EST, STAT, Start date 09/28/23 15:36:00 EST, 09/28/23 15:36:00 EST Disposition Plan Patient Discharge Condition Stable Discharge Disposition Home Discharge Prescription List Prescriptions No active prescription medications Follow-up With When Contact Information TOM RENEE, RADHA Gaxiola In 3 days 10/01/2023 EST [address] [place] [id number]- Additional Instructions: Additional Instructions: Call the office of your primary care doctor to arrange for follow-up within the above-stated timeframe. Follow-up with your primary care doctor about this ED visit. You should review your labs, imaging, and diagnoses from this ED visit with your primary care physician. If you were prescribed medications you should discuss possible side-effects and drug interactions with your pharmacist. Call 911 or go to the nearest Emergency Department if you develop any new or worsening symptoms. Patient Education COVID-19 Attestation This visit was performed by both the physician and an APC. I performed all aspects of the MDM as documented. This report was transcribed using voice recognition software. Every effort was made to ensure accuracy, however, inadvertently computerized employment case manager management be present. Problem List/Past Medical History Ongoing Acne rosacea Class 3 severe obesity with body mass index (BMI) of 40.0 to 44.9 in adult Frequent UTI Influenza vaccination up to date Kidney stones Non-tobacco user Osteochondritis dissecans Urine frequency Historical DVT Kidn (more content not included)... Normal [facility] Comment on above: Result Comment: Elec tronically Signed By: Lara Reyes PA-C\.br\Date and Time Signed: 09/28/23 15:38 EST\.br\Electronically Co-Signed By: Hannah Parry, Cody Pelletier\.br\Date and Time Co-Signed: 09/28/23 19:52 EST ED Patient Summaryon 024 ED Patient Summary (Inserted Image. Carrie ble to display) [address] [address] Patient Discharge Instructions Person Information Name: DEJAH DYKES Age: 53 Years Arrival Date: 09/28/2023 14:44:25 Discharge Diagnosis: 1:COVID Primary Care Physician: Lenora SANTOS PA-C Provider Information Primary Provider: Cody Young M.D. [employer] Internship:Lara Reyes PA-C The exam and treatment you received in the Emergency Department were for an urgent problem and are not intended as complete care. It is important that you follow up with a doctor, nurse practitioner, or physician?s autopsy assistant for ongoing care. If your symptoms become worse or you do not improve as expected and you are unable to reach your usual health care provider, you should return to the Emergency Department. We are available 24 hours a day. DEJAH DYKES has been given the following list of patient education materials, prescriptions and follow-up instructions: Follow-up Instructions: With: Address: When: Lenora SANTOS PA-C, [address] [address] In 3 days 10/01/2023 In the event that this physician does not participate in your insurance network, please consult with your insurance company to find a nearby participating provider. Patient Education Materials: COVID-19 A MESSAGE TO ALL PATIENTS REGARDING OPIOIDS PRESCRIPTION OPIOIDS: WHAT YOU NEED TO KNOW Prescription opioids can be used to help relieve vyjbwvyz-lk-ktyinh pain and are often prescribed following a surgery or injury, or for certain health conditions. These medications can be an important part of the treatment but also come with serious risks. It is important to work with your healthcare provider to make sure you are getting the safest, most effective care. WHAT ARE THE RISKS AND SIDE EFFECTS OF OPIOID USE? Prescription opioids carry serious risks of addiction and overdose, especially with prolonged use. An opioid overdose, often marked by slowed breathing, can cause sudden . The use of prescription opioids can have a number of side effects as well, even when taken as directed: ? Tolerance?meaning you might need to take more of the medication for the same pain relief ? Physical dependence?meaning you have symptoms of withdrawal when a medication is stopped ? Increased sensitivity to pain ? Constipation ? Nausea, vomiting, and dry mouth ? Sleepiness and dizziness ? Confusion ? Depression ? Low levels of testosterone that can result in lower sex drive, energy, and strength ? Itching and sweating RISKS ARE GREATER WITH: ? History of drug misuse, substance use disorder, or overdose ? Mental health conditions (such as depression or anxiety) ? Sleep apnea ? Older age (65 years and older) ? Avoid alcohol while taking prescription opioids. Also, unless specifically advised by your health care provider, medications to avoid include: ? Benzodiazepines (such as Xanax or Valium) ? Muscle relaxants (such as Soma or Flexeril) ? Hypnotics (such as Ambien or Lunesta) ? Other prescription opioids KNOW YOUR OPTIONS Talk to your health care provider about ways to manage your pain that don?t involve prescription opioids. Some of these options may actually work better and have fewer risks and side effects. Options may include: ? Pain relievers such as acetaminophen, ibuprofen, and naproxen ? Some medication that are also used for depression or seizures ? Physical therapy and exercise ? Cognitive behavioral therapy, a psychological, goal-directed approach, in which patients learn how to modify physical, behavioral, and emotional triggers of pain and stress. IF YOU ARE PRESCRIBED OPIOIDS FOR PAIN: ? Never take opioids in greater amounts or more often than prescribed. ? Follow up with your primary health care provider. o Work together to create a plan on how to manage your pain. o Talk about ways to help manage your pain that don?t involve prescription opioids. o Talk about any and all concerns and side effects. ? Help prevent misuse and abuse o Never sell or share prescription opioids. o Never use another person?s prescription opioids. ? Store prescription opioids in a secure place and out of reach of others (this may include visitors, children, friends, and family). ? Safely dispose of unused prescription opioids: Find your community drug take-back program or your pharmacy mail-back program, or flush them down the toilet, following guidance from the Food and Drug Administration (www.fda.gov/Drugs/Resourc esForYou). ? Visit www.cdc.gov/drugoverdose to learn about the risks of opioids abuse and overdose. ? If you believe you may be struggling with addiction, tell your health child care nurse and ask for guidance or call [facility]?S National Helpline at 1-833-175-REUK. q Source: Department of Health an (more content not included)... Normal [facility] Influenza A&B Agon Influenzae A Ag Negative Normal Negative [facility] Comment on above: Performed By: #### 2 [id number] ####[facility] [id number] [place] [address] Influenzae B Ag Negative Normal Negative [facility] Comment on above: Result Comment: Test sensitivity and specificity vary for age group, specimen type, antigen types, and prevalence of disease. Test results must be evaluated in conjunction with other clinical data available to the physician. Individuals who received nasally administered Influenza A vaccine may have positive test results up to 3 days after vaccination. Performed By: #### 2 [id number] ####[facility] [id number] [place] [address] MICRO OTHER TESTSOrdered By: Rajni Llanes on 09-28-2023 Influenzae A Ag Negative (09/28/23 3:07 PM) Normal Negative [facility] Influenzae B Ag Negative 1 (09/28/23 3:07 PM) Normal Negative [facility] Comment on above: Interpretive Data: T est sensitivity and specificity vary for age group, specimen type, antigen types, and prevalence of disease. Test results must be evaluated in conjunction with other clinical data available to the physician. Individuals who received nasally administered Influenza A vaccine may have positive test results up to 3 days after vaccination. Rapid COV Int NEG Ctl Pass (09/28/23 3:07 PM) Normal [facility] Rapid COV Int POS Ctl Pass (09/28/23 3:07 PM) Normal [facility] SARS-CoV+SARS-CoV-2 (COVID-19) Ag IA.rapid Ql (Resp) Detected 2 *ABN* (09/28/23 3:07 PM) Invalid Interpretation Code Not Detected [facility] Comment on above: Interpretive Data: T he BD Veritor System for Rapid Detection of SARS-CoV-2 is a chromatographic digital immunoassay intended for the direct and qualitative detection of SARS-CoV-2 nucleocapsid antigens in nasal swabs from individuals who are suspected of COVID-19 by their healthcare provider within the first five days of the onset of symptoms. Negative results should be treated as presumptive, do not rule out SARS-CoV-2 infection and should not be used as the sole basis for treatment or patient management decisions, including infection control decisions. Negative results should be considered in the context of a patient s recent exposures, history and the presence of clinical signs and symptoms consistent with COVID-19, and confirmed with a molecular assay, if necessary, for patient management. For in vitro diagnostic use. In the [place], only for use under an Emergency Use Authorization. In the [place], this test has not been FDA cleared or approved; this test has been authorized by FDA under an EUA for use by authorized laboratories; use by laboratories certified under the CLIA, 42 U.S.C. 263a, that meet requirements to perform moderate, high, or waived complexity tests and at the Point of Care (POC), i.e., in patient care settings operating under a CLIA Certificate of Waiver, Certificate of Compliance, or Certificate of Accreditation. This test has been authorized only for the detection of proteins from SARS-CoV-2, not for any other viruses or pathogens; and, in the [place], this test is only authorized for the duration of the declaration that circumstances exist justifying the authorization of emergency use of in vitro diagnostics for detection and/or diagnosis of the virus that causes COVID-19 under Section 564(b)(1) of the Act, 21 U.S.C. 360bbb-3(b)(1), unless the authorization is terminated or revoked sooner. Rapid COVID Antigen ([facility])on 09-28-2023 Rapid COV Int NEG Ctl Pass Normal [facility] Comment on above: Performed By: #### 2 [id number] ####[facility] [id number] [place] [address] Rapid COV Int POS Ctl Pass Normal [facility] Comment on above: Performed By: #### 2 [id number] ####[facility] [address] [place] [address] SARS-CoV+SARS-CoV-2 (COVID-19) Ag IA.rapid Ql (Resp) Detected Abnormal Not Detected [facility] Comment on above: Result Comment: The Equ[employer]board System for Rapid Detection of SARS-CoV-2 is a chromatographic digital immunoassay intended for the direct and qualitative detection of SARS-CoV-2 nucleocapsid antigens in nasal swabs from individuals who are suspected of COVID-19 by their healthcare provider within the first five days of the onset of symptoms. Negative results should be treated as presumptive, do not rule out SARS-CoV-2 infection and should not be used as the sole basis for treatment or patient management decisions, including infection control decisions. Negative results should be considered in the context of a patient?s recent exposures, history and the presence of clinical signs and symptoms consistent with COVID-19, and confirmed with a molecular assay, if necessary, for patient management. For in vitro diagnostic use. In the [place], only for use under an Emergency Use Authorization. In the [place], this test has not been FDA cleared or approved; this test has been authorized by FDA under an EUA for use by authorized laboratories; use by laboratories certified under the CLIA, 42 U.S.C. ?263a, that meet requirements to perform moderate, high, or waived complexity tests and at the Point of Care (POC), i.e., in patient care settings operating under a CLIA Certificate of Waiver, Certificate of Compliance, or Certificate of Accreditation. This test has been authorized only for the detection of proteins from SARS-CoV-2, not for any other viruses or pathogens; and, in the [place], this test is only authorized for the duration of the declaration that circumstances exist justifying the authorization of emergency use of in vitro diagnostics for detection and/or diagnosis of the virus that causes COVID-19 under Section 564(b)(1) of the Act, 21 U.S.C. ? 360bbb-3(b)(1), unless the authorization is terminated or revoked sooner. Performed By: #### 2 [id number], [id number] ####[facility] [address] [place] [address] [facility] Report[facility] Response - Public Health {[id number]}XML Normal [facility] REYNALDO Reflex Testingon 024 REYNALDO with Reflex Positive Critically abnormal Negative [facility] Comment on above: Performed By: #### F ER, HEPATIC, FE and TIBC, PT, LIPID, CBC ####[address]#### HBCAB, HBSAG, ALPHA PHEN, REYNALDO RFX ADD ON, HBSAB, CERULOP, SMAB, HCV RX PCR ####[facility] , Anti-Centromere B Antibodies <0.2 Normal 0.0-0.9 [facility] Comment on above: Performed By: #### F ER, HEPATIC, FE and TIBC, PT, LIPID, CBC ####[address]#### HBCAB, HBSAG, ALPHA PHEN, REYNALDO RFX ADD ON, HBSAB, CERULOP, SMAB, HCV RX PCR ####[facility] , Anti-dsDNA(DBL)Ab 1 Normal 0-9 [facility] Comment on above: Result Comment: Nega tive <5 Equivocal 5 - 9 Positive >9 Performed By: #### F ER, HEPATIC, FE and TIBC, PT, LIPID, CBC ####[address]#### HBCAB, HBSAG, ALPHA PHEN, REYNALDO RFX ADD ON, HBSAB, CERULOP, SMAB, HCV RX PCR ####[facility] , Anti-MANAGER TRANSFUSION <0.2 Normal 0.0-0.9 [facility] Comment on above: Performed By: #### F ER, HEPATIC, FE and TIBC, PT, LIPID, CBC ####[address]#### HBCAB, HBSAG, ALPHA PHEN, REYNALDO RFX ADD ON, HBSAB, CERULOP, SMAB, HCV RX PCR ####[facility] , Anti-Llanes Antibodies <0.2 Normal 0.0-0.9 [facility] Comment on above: Performed By: #### F ER, HEPATIC, FE and TIBC, PT, LIPID, CBC ####[address]#### HBCAB, HBSAG, ALPHA PHEN, REYNALDO RFX ADD ON, HBSAB, CERULOP, SMAB, HCV RX PCR ####[facility] , Chromatin Antibody <0.2 Normal 0.0-0.9 [facility] Comment on above: Performed By: #### F ER, HEPATIC, FE and TIBC, PT, LIPID, CBC ####[address]#### HBCAB, HBSAG, ALPHA PHEN, REYNALDO RFX ADD ON, HBSAB, CERULOP, SMAB, HCV RX PCR ####[facility] , SHEY-1 Antibody <0.2 Normal 0.0-0.9 [facility] Comment on above: Performed By: #### F ER, HEPATIC, FE and TIBC, PT, LIPID, CBC ####[address]#### HBCAB, HBSAG, ALPHA PHEN, REYNALDO RFX ADD ON, HBSAB, CERULOP, SMAB, HCV RX PCR ####[facility] , Scleroderma 70 Antibodies >8.0 High 0.0-0.9 [facility] Comment on above: Performed By: #### F ER, HEPATIC, FE and TIBC, PT, LIPID, CBC ####[address]#### HBCAB, HBSAG, ALPHA PHEN, REYNALDO RFX ADD ON, HBSAB, CERULOP, SMAB, HCV RX PCR ####[facility] , See Below: Normal . [facility] Comment on above: Result Comment: Auto antibody Disease Association Condition Frequency --------- Antinuclear Antibody, SLE, mixed connective Direct (REYNALDO-D) tissue diseases --------- dsDNA SLE 40 - 60% --------- Chromatin Drug induced SLE 90% SLE 48 - 97% --------- SSA (Ro) SLE 25 - 35% Sjogren's Syndrome 40 - 70% Lupus 100% --------- SSB (La) SLE 10% Sjogren's Syndrome 30% --------- Sm (anti-Llanes) SLE 15 - 30% --------- MANAGER TRANSFUSION Mixed Connective Tissue Disease 95% (U1 nRNP, SLE 30 - 50% anti-ribonucleoprotein) Polymyositis and/or Dermatomyositis 20% --------- Scl-70 (antiDNA Scleroderma (diffuse) 20 - 35% topoisomerase) Crest 13% --------- Shey-1 Polymyositis and/or Dermatomyositis 20 - 40% --------- Centromere B Scleroderma - Crest variant 80% Performed at: [facility] [address] [id number] Cashier [employer] Checker Stock Clerk: Dhruv Schreiber PhD, Phone: [phone] Performed By: #### F ER, HEPATIC, FE and TIBC, PT, LIPID, CBC ####[facility] [place] [address] [place]#### HBCAB, HBSAG, ALPHA PHEN, REYNALDO RFX ADD ON, HBSAB, CERULOP, SMAB, HCV RX PCR ####[facility] , SS-A/Ro Sjogrens Antibody <0.2 Normal 0.0-0.9 [facility] Comment on above: Performed By: #### F ER, HEPATIC, FE and TIBC, PT, LIPID, CBC ####[facility] [address] [place] [address] [place]#### HBCAB, HBSAG, ALPHA PHEN, REYNALDO RFX ADD ON, HBSAB, CERULOP, SMAB, HCV RX PCR ####[facility] , SS-B/La Sjogrens Antibody 0.5 Normal 0.0-0.9 [facility] Comment on above: Performed By: #### F ER, HEPATIC, FE and TIBC, PT, LIPID, CBC ####[facility] [address]#### HBCAB, HBSAG, ALPHA PHEN, REYNALDO RFX ADD ON, HBSAB, CERULOP, SMAB, HCV RX PCR ####[facility] , Actin smooth muscle IgG Ab [ Units/volume] in SerumOrdered By: Forest Giordano on 09-25-2023 Actin smooth muscle IgG Qn (S) 129 Units 0-19 [facility] Comment on above: Negative 0 - 19 Weak positive 20 - 30 Moderate to strong positive >30 Actin Antibodies are found in 52-85% of patients with autoimmune hepatitis or chronic active hepatitis and in 22% of patients with primary biliary cirrhosis.Performed at: [facility] [place] [id number] Director: Dhruv Schreiber PhD, Phone: [phone] Alanine aminotransferase [En zymatic activity/volume] in Serum or PlasmaOrdered By: Forest Giordano on 09-25-2023 ALT [Catalytic activity/Vol] 51 U/L Normal 7-52 [facility] Comment on above: Performed By: #### F ER, HEPATIC, FE and TIBC, PT, LIPID, CBC ####[facility] [place] [address] [place]#### HBCAB, HBSAG, ALPHA PHEN, REYNALDO RFX ADD ON, HBSAB, CERULOP, SMAB, HCV RX PCR ####[facility] , Albumin [Mass/volume] in Ser um or Plasma by Bromocresol green (BCG) dye binding methoOrdered By: Forest Giordano on 09-25-2023 Albumin BCG dye [Mass/Vol] 4.2 g/dL 3.5-5.7 [facility] Alkaline phosphatase [Enzyma tic activity/volume] in Serum or PlasmaOrdered By: Forest Giordano on 09-25-2023 ALP [Catalytic activity/Vol] 90 U/L Normal 34-104 [facility] Comment on above: Performed By: #### F ER, HEPATIC, FE and TIBC, PT, LIPID, CBC ####[facility] [id number]#### HBCAB, HBSAG, ALPHA PHEN, REYNALDO RFX ADD ON, HBSAB, CERULOP, SMAB, HCV RX PCR ####[facility] , [id number] Phenotyp manuel 09-25-2023 Alpha 1 Anti-Trypsin 155 mg/dL Normal 101-187 [facility] Comment on above: Performed By: #### F ER, HEPATIC, FE and TIBC, PT, LIPID, CBC ####[facility]#### HBCAB, HBSAG, ALPHA PHEN, REYNALDO RFX ADD ON, HBSAB, CERULOP, SMAB, HCV RX PCR ####[facility] , Phenotype (P1) MM Normal . [facility] Comment on above: Result Comment: Phen otype Population A-1-AT Concentration* Incidence % % of MM (Typical Range) MM 86.5% 100% (96 - 189) MS 8.0% 86% (83 - 161) MZ 3.9% 61% (60 - 111) FM 0.4% 100% (93 - 191) SZ 0.3% 41% (42 - 75) SS 0.1% 64% (62 - 119) ZZ 0.05% 19% (16 - 38) FS 0.05% 70% (70 - 128) FZ Unknown 46% (44 - 88) FF Unknown Unknown *A-1-AT concentration in the homozygous MM phenotype is taken as the reference normal. Percent deficiency in each phenotype is reported relative to this reference. Ranges used to confirm phenotype. Performed at: [address] [id number] Cash[employer] Check[employer] Stock Clerk: Dhruv Schreiber PhD, Phone: [phone] Performed at: [facility] [address] [id number] Cashier [employer] Checker Stock Clerk: Leyla Britt MD, Phone: [phone] Performed By: #### F ER, HEPATIC, FE and TIBC, PT, LIPID, CBC ####[facility] [place] [address] [place]#### HBCAB, HBSAG, ALPHA PHEN, REYNALDO RFX ADD ON, HBSAB, CERULOP, SMAB, HCV RX PCR ####[facility] , Aspartate aminotransferase [ Enzymatic activity/volume] in Serum or PlasmaOrdered By: Forest Giordano on 09-25-2023 AST [Catalytic activity/Vol] 44 U/L High 13-39 [facility] Comment on above: Performed By: #### F ER, HEPATIC, FE and TIBC, PT, LIPID, CBC ####[place] [address] [place] [address] [place]#### HBCAB, HBSAG, ALPHA PHEN, REYNALDO RFX ADD ON, HBSAB, CERULOP, SMAB, HCV RX PCR ####[facility] , Automated basophil %Ordered By: Forest Giordano on 09-25-2023 Basophils/100 WBC (Bld) 0.8 % Normal . [facility] Comment on above: Performed By: #### F ER, HEPATIC, FE and TIBC, PT, LIPID, CBC #### [place] [address] [place] #### HBCAB, HBSAG, ALPHA PHEN, REYNALDO RFX ADD ON, HBSAB, CERULOP, SMAB, HCV RX PCR #### [facility] , Automated basophil countOrde red By: Forest Giordano on 09-25-2023 Basophils (Bld) [#/Vol] 0.1 10*3/uL Normal 0.0-0.2 [facility] Comment on above: Result Comment: PERF ORMED BY: [place] [address] PATHOLOGIST SECURITY SOFTWARE ENGINEER LORRAINE DIETZ M.D. Performed By: #### F ER, HEPATIC, FE and TIBC, PT, LIPID, CBC #### [facility] [address] [place] [address] [place] #### HBCAB, HBSAG, ALPHA PHEN, REYNALDO RFX ADD ON, HBSAB, CERULOP, SMAB, HCV RX PCR #### [facility] , Automated blood monocyte cou ntOrdered By: Forest Giordano on 09-25-2023 Monocytes (Bld) [#/Vol] 0.5 10*3/uL Normal 0.0-0.8 [facility] Comment on above: Performed By: #### F ER, HEPATIC, FE and TIBC, PT, LIPID, CBC #### [place] [address] [place] #### HBCAB, HBSAG, ALPHA PHEN, REYNALDO RFX ADD ON, HBSAB, CERULOP, SMAB, HCV RX PCR #### [facility] , Automated eosinophil %Ordere d By: Forest Giordano on 09-25-2023 Eosinophils/100 WBC (Bld) 2.1 % Normal . [facility] Comment on above: Performed By: #### F ER, HEPATIC, FE and TIBC, PT, LIPID, CBC #### [place] [address] [place] #### HBCAB, HBSAG, ALPHA PHEN, REYNALDO RFX ADD ON, HBSAB, CERULOP, SMAB, HCV RX PCR #### [facility] , Automated eosinophil countOr dered By: Forest Giordano on 09-25-2023 Eosinophils (Bld) [#/Vol] 0.2 10*3/uL Normal 0.0-0.45 [facility] Comment on above: Performed By: #### F ER, HEPATIC, FE and TIBC, PT, LIPID, CBC #### [place] [address] [place] #### HBCAB, HBSAG, ALPHA PHEN, REYNALDO RFX ADD ON, HBSAB, CERULOP, SMAB, HCV RX PCR #### [facility] , Automated monocyte %Ordered By: Forest Giordano on 09-25-2023 Monocytes/100 WBC (Bld) 6.8 % Normal . [facility] Comment on above: Performed By: #### F ER, HEPATIC, FE and TIBC, PT, LIPID, CBC #### [facility] [address] [place] [address] [place] #### HBCAB, HBSAG, ALPHA PHEN, REYNALDO RFX ADD ON, HBSAB, CERULOP, SMAB, HCV RX PCR #### [facility] , Automated neutrophil %Ordere d By: Forest Giordano on 09-25-2023 Neutrophils/100 WBC (Bld) 47.6 % Normal . [facility] Comment on above: Performed By: #### F ER, HEPATIC, FE and TIBC, PT, LIPID, CBC #### [facility] [address] [place] [address] [place] #### HBCAB, HBSAG, ALPHA PHEN, REYNALDO RFX ADD ON, HBSAB, CERULOP, SMAB, HCV RX PCR #### [facility] , Bilirubin.direct [Mass/volum e] in Serum or PlasmaOrdered By: Forest Giordano on 09-25-2023 Bilirubin.direct [Mass/Vol] 0.10 mg/dL 0.03-0.18 [facility] Bilirubin.total [Mass/volume ] in Serum or PlasmaOrdered By: Forest Giordano on 09-25-2023 Bilirubin [Mass/Vol] 0.6 mg/dL Normal 0.3-1.0 [facility] Comment on above: Performed By: #### F ER, HEPATIC, FE and TIBC, PT, LIPID, CBC ####[facility] [address] [place] [address] [place]#### HBCAB, HBSAG, ALPHA PHEN, REYNALDO RFX ADD ON, HBSAB, CERULOP, SMAB, HCV RX PCR ####[facility] , Ceruloplasminon 09-25-2023 Ceruloplasmin 22.9 mg/dL Normal 19.0-39.0 [facility] Comment on above: Result Comment: Perf ormed at: - [facility] [address] [id number] Cashier Or Checker Stock Clerk: Dhruv Schreiber PhD, Phone: [phone] PERFORMED BY: [facility] [address] [place] [address] PATHOLOGIST SECURITY SOFTWARE ENGINEER LORRAINE DIETZ M.D. Performed By: #### F ER, HEPATIC, FE and TIBC, PT, LIPID, CBC ####[facility] [id number] [place] [id number] [place]#### HBCAB, HBSAG, ALPHA PHEN, REYNALDO RFX ADD ON, HBSAB, CERULOP, SMAB, HCV RX PCR ####[facility] , Cholesterol [Mass/volume] in Serum or PlasmaOrdered By: Forest Giordano on 09-25-2023 Cholesterol [Mass/Vol] 199 mg/dL Normal 140-200 [facility] Comment on above: Chol less than 200 m g/dl low riskChol 201-239 mg/dl borderline riskChol 240 mg/dl and greater high risk Result Comment: Chol less than 200 mg/dl low risk Chol 201-239 mg/dl borderline risk Chol 240 mg/dl and greater high risk Performed By: #### F ER, HEPATIC, FE and TIBC, PT, LIPID, CBC ####[facility] [address] [place] [id number] [place]#### HBCAB, HBSAG, ALPHA PHEN, REYNALDO RFX ADD ON, HBSAB, CERULOP, SMAB, HCV RX PCR ####[facility] , Cholesterol in LDL Calc [Mas s/Vol]Ordered By: Forest Giordano on 09-25-2023 Cholesterol in LDL [Mass/Vol] 122 mg/dL 0-100 [facility] Comment on above: LDL ATP III CLASSIFI CATIONLDL less than 100 mg/dL OptimalLDL 100-129 mg/dL Near or above optimalLDL 130-159 mg/dL Borderline highLDL 160-189 mg/dL HighLDL greater than 189 mg/dL Very high Cholesterol in VLDL Calc [Ma ss/Vol]Ordered By: Forest Giordano on 09-25-2023 Cholesterol in VLDL [Mass/Vol] 17 mg/dL [facility] Complete Blood Count Auto Di ffon 09-25-2023 Mean Corpuscular HGB Conc 34.2 g/dL Normal 32.0-35.0 [facility] Comment on above: Performed By: #### F ER, HEPATIC, FE and TIBC, PT, LIPID, CBC #### [facility] [address] [place] [address] #### HBCAB, HBSAG, ALPHA PHEN, REYNALDO RFX ADD ON, HBSAB, CERULOP, SMAB, HCV RX PCR #### [facility] , NRBC% 0.1 /100{WBC} Normal 0-0.5 [facility] Comment on above: Performed By: #### F ER, HEPATIC, FE and TIBC, PT, LIPID, CBC #### [facility] [address] [place] [address] #### HBCAB, HBSAG, ALPHA PHEN, REYNALDO RFX ADD ON, HBSAB, CERULOP, SMAB, HCV RX PCR #### [facility] , DNA double strand Ab [Units/ volume] in SerumOrdered By: Forest Giordano on 09-25-2023 DNA double strand Ab Qn (S) 1 [IU]/mL 0-9 [facility] Comment on above: Negative <5 Equivoca l 5 - 9 Positive >9 Erythrocyte distribution wid th [Ratio] by Automated countOrdered By: Forest Giordano on 09-25-2023 Erythrocyte distribution width (RBC) [Ratio] 13.8 % Normal 11.9-15.3 [facility] Comment on above: Performed By: #### F ER, HEPATIC, FE and TIBC, PT, LIPID, CBC #### [facility] [address] [place] [address] [place] #### HBCAB, HBSAG, ALPHA PHEN, REYNALDO RFX ADD ON, HBSAB, CERULOP, SMAB, HCV RX PCR #### [facility] , Erythrocytes [#/volume] in B lood by Automated countOrdered By: Forest Giordano on 09-25-2023 RBC (Bld) [#/Vol] 4.81 10*6/uL Normal 3.60-5.00 [facility] Comment on above: Performed By: #### F ER, HEPATIC, FE and TIBC, PT, LIPID, CBC #### [facility] [address] [place] [address] [place] #### HBCAB, HBSAG, ALPHA PHEN, REYNALDO RFX ADD ON, HBSAB, CERULOP, SMAB, HCV RX PCR #### [facility] , Ferritin [Mass/volume] in Se rum or PlasmaOrdered By: Forest Giordano on 09-25-2023 Ferritin [Mass/Vol] 153.5 ng/mL Normal 11.0-306.8 [facility] Comment on above: Performed By: #### F ER, HEPATIC, FE and TIBC, PT, LIPID, CBC ####[facility] [address] [place] [address] [place]#### HBCAB, HBSAG, ALPHA PHEN, REYNALDO RFX ADD ON, HBSAB, CERULOP, SMAB, HCV RX PCR ####[facility] , Hematocrit [Volume Fraction] of Blood by Automated countOrdered By: Forest Giordano on 09-25-2023 Hematocrit (Bld) [Volume fraction] 43.4 % Normal 34.0-46.4 [facility] Comment on above: Performed By: #### F ER, HEPATIC, FE and TIBC, PT, LIPID, CBC #### [facility] [address] [place] [address] [place] #### HBCAB, HBSAG, ALPHA PHEN, REYNALDO RFX ADD ON, HBSAB, CERULOP, SMAB, HCV RX PCR #### [facility] , Hemoglobin [Mass/volume] in BloodOrdered By: Forest Giordano on 09-25-2023 Hemoglobin (Bld) [Mass/Vol] 14.9 g/dL Normal 11.8-15.4 [facility] Comment on above: Performed By: #### F ER, HEPATIC, FE and TIBC, PT, LIPID, CBC #### [facility] [address] [place] [address] [place] #### HBCAB, HBSAG, ALPHA PHEN, REYNALDO RFX ADD ON, HBSAB, CERULOP, SMAB, HCV RX PCR #### [facility] , Hep C Ab wRfx to Qnt PCRon 0 09-25-2023 Hepatitis C Virus Antibody Non-Reactive Normal Non Reactive [facility] Comment on above: Performed By: #### F ER, HEPATIC, FE and TIBC, PT, LIPID, CBC ####[address]#### HBCAB, HBSAG, ALPHA PHEN, REYNALDO RFX ADD ON, HBSAB, CERULOP, SMAB, HCV RX PCR ####[facility] , Interpretation Hepatitis C Normal . [facility] Comment on above: Result Comment: Not infected with HCV unless early or acute infection is suspected (which may be delayed in an immunocompromised individual), or other evidence exists to indicate HCV infection. Performed By: #### F ER, HEPATIC, FE and TIBC, PT, LIPID, CBC ####[address]#### HBCAB, HBSAG, ALPHA PHEN, REYNALDO RFX ADD ON, HBSAB, CERULOP, SMAB, HCV RX PCR ####[facility] , Hepatic Panelon 09-25-2023 Albumin [Mass/Vol] 4.2 g/dL Normal 3.5-5.7 [facility] Comment on above: Performed By: #### F ER, HEPATIC, FE and TIBC, PT, LIPID, CBC ####[address]#### HBCAB, HBSAG, ALPHA PHEN, REYNALDO RFX ADD ON, HBSAB, CERULOP, SMAB, HCV RX PCR ####[facility] , Bilirubin,Indirect 0.5 mg/dL Normal [facility] Comment on above: Performed By: #### F ER, HEPATIC, FE and TIBC, PT, LIPID, CBC ####[address]#### HBCAB, HBSAG, ALPHA PHEN, REYNALDO RFX ADD ON, HBSAB, CERULOP, SMAB, HCV RX PCR ####[facility] , Bilirubin.indirect [Mass/Vol] 0.10 mg/dL Normal 0.03-0.18 [facility] Comment on above: Performed By: #### F ER, HEPATIC, FE and TIBC, PT, LIPID, CBC ####[address]#### HBCAB, HBSAG, ALPHA PHEN, REYNALDO RFX ADD ON, HBSAB, CERULOP, SMAB, HCV RX PCR ####[facility] , Hepatitis B Core Antibodyon 09-25-2023 Hepatitis B Core Antibody Negative Normal Negative [facility] Comment on above: Result Comment: Perf ormed at: [facility] [address] [id number] Cashier Or Checker Stock Clerk: Dhruv Schreiber PhD, Phone: [phone] Performed By: #### F ER, HEPATIC, FE and TIBC, PT, LIPID, CBC ####[address]#### HBCAB, HBSAG, ALPHA PHEN, REYNALDO RFX ADD ON, HBSAB, CERULOP, SMAB, HCV RX PCR ####[facility] , Hepatitis B Surface Antibody on 09-25-2023 Hepatitis B Surface Antibody Non-Reactive Normal . [facility] Comment on above: Result Comment: Non Reactive: Inconsistent with immunity, less than 10 mIU/mL Reactive: Consistent with immunity, greater than 9.9 mIU/mL Performed By: #### F ER, HEPATIC, FE and TIBC, PT, LIPID, CBC ####[address]#### HBCAB, HBSAG, ALPHA PHEN, REYNALDO RFX ADD ON, HBSAB, CERULOP, SMAB, HCV RX PCR ####[facility] , Hepatitis B Surface Antigeno n 09-25-2023 HBsAg Screen Negative Normal Negative [facility] Comment on above: Result Comment: PERF ORMED BY: [facility] [address] [address] PATHOLOGIST SECURITY SOFTWARE ENGINEER LORRAINE DIETZ M.D. Performed By: #### F ER, HEPATIC, FE and TIBC, PT, LIPID, CBC ####[facility] [id number]#### HBCAB, HBSAG, ALPHA PHEN, REYNALDO RFX ADD ON, HBSAB, CERULOP, SMAB, HCV RX PCR ####[facility] , Hepatitis B virus surface Ab [Presence] in SerumOrdered By: Forest Giordano on 09-25-2023 HBV surface Ab Ql (S) Non-Reactive . [facility] Comment on above: Non Reactive: Incons istent with immunity, less than 10 mIU/mL Reactive: Consistent with immunity, greater than 9.9 mIU/mL Hepatitis B virus surface Ag [Presence] in Serum or Plasma by ImmunoassayOrdered By: Forest Giordano on 09-25-2023 HBV surface Ag IA Ql Negative Negative [facility] Hepatitis C virus IgG Ab [Pr esence] in Serum or Plasma by ImmunoassayOrdered By: Forest Giordano on 09-25-2023 HCV IgG IA Ql Non-Reactive Non Reactive [facility] INR in Platelet poor plasma by Coagulation assayOrdered By: Forest Giordano on 09-25-2023 INR Coag (PPP) [Relative time] 1.0 {INR} Normal [facility] Comment on above: INR Therapeutic Rang e A) Pre- and Peroperative OAT started two weeks before surgery. NOT HIP SURGERY: 1.5 - 2.5 HIP SURGERY: 2 - 3B) Primary and secondary prevention of venous THROMBOSIS: 2 - 3C) Active venous thrombosis, pulmonary embolismand prevention of recurrent venous thrombosis: 2 - 3D) Prevention of arterial thromboembolismincluding patients with mechanical heart valves: 3 - 4.5 Result Comment: INR Therapeutic Range A) Pre- and Peroperative OAT started two weeks before surgery. NOT HIP SURGERY: 1.5 - 2.5 HIP SURGERY: 2 - 3 B) Primary and secondary prevention of venous THROMBOSIS: 2 - 3 C) Active venous thrombosis, pulmonary embolism and prevention of recurrent venous thrombosis: 2 - 3 D) Prevention of arterial thromboembolism including patients with mechanical heart valves: 3 - 4.5 PERFORMED BY: [facility] [address] [place] [address] PATHOLOGIST SECURITY SOFTWARE ENGINEER LORRAINE DIETZ M.D. Performed By: #### F ER, HEPATIC, FE and TIBC, PT, LIPID, CBC ####[address]#### HBCAB, HBSAG, ALPHA PHEN, REYNALDO RFX ADD ON, HBSAB, CERULOP, SMAB, HCV RX PCR ####[facility] , Iron [Mass/volume] in Serum or PlasmaOrdered By: Forest Giordano on 09-25-2023 Iron [Mass/Vol] 78 ug/dL Normal 50-212 [facility] Comment on above: Performed By: #### F ER, HEPATIC, FE and TIBC, PT, LIPID, CBC ####[address]#### HBCAB, HBSAG, ALPHA PHEN, REYNALDO RFX ADD ON, HBSAB, CERULOP, SMAB, HCV RX PCR ####[facility] , Iron and TIBC Profileon 09-06 % Iron Saturation 23.6 % Normal 20-50 [facility] Comment on above: Performed By: #### F ER, HEPATIC, FE and TIBC, PT, LIPID, CBC ####[address]#### HBCAB, HBSAG, ALPHA PHEN, REYNALDO RFX ADD ON, HBSAB, CERULOP, SMAB, HCV RX PCR ####[facility] , Total Iron Binding Capacity 330 ug/dL Normal 255-450 [facility] Comment on above: Performed By: #### F ER, HEPATIC, FE and TIBC, PT, LIPID, CBC ####[place] [address] [place]#### HBCAB, HBSAG, ALPHA PHEN, REYNALDO RFX ADD ON, HBSAB, CERULOP, SMAB, HCV RX PCR ####[facility] , Iron binding capacity [Mass/ volume] in Serum or PlasmaOrdered By: Forest Giordano on 09-25-2023 Iron binding capacity [Mass/Vol] 330 ug/dL 255-450 [facility] Iron saturation [Mass Fracti on] in Serum or PlasmaOrdered By: Forest Giordano on 09-25-2023 Iron saturation [Mass fraction] 23.6 % 20-50 [facility] Leukocytes [#/volume] correc toya for nucleated erythrocytes in Blood by Automated counOrdered By: Forest Giordano on 09-25-2023 WBC corrected for nucl RBC Auto (Bld) [#/Vol] 7.2 10*3/uL 3.8-11.6 [facility] Leukocytes [#/volume] in Blo od by Automated countOrdered By: Forest Giordano on 09-25-2023 WBC (Bld) [#/Vol] 7.2 10*3/uL Normal 3.8-11.6 [facility] Comment on above: Performed By: #### F ER, HEPATIC, FE and TIBC, PT, LIPID, CBC #### [facility] [address] [place] [address] [place] #### HBCAB, HBSAG, ALPHA PHEN, REYNALDO RFX ADD ON, HBSAB, CERULOP, SMAB, HCV RX PCR #### [facility] , Lipid Panelon 09-25-2023 LDL Cholesterol,Calculated 122 mg/dL High 0-100 [facility] Comment on above: Result Comment: LDL ATP III CLASSIFICATION LDL less than 100 mg/dL Optimal LDL 100-129 mg/dL Near or above optimal LDL 130-159 mg/dL Borderline high LDL 160-189 mg/dL High LDL greater than 189 mg/dL Very high Performed By: #### F ER, HEPATIC, FE and TIBC, PT, LIPID, CBC ####[facility] [address] [place] [address] [place]#### HBCAB, HBSAG, ALPHA PHEN, REYNALDO RFX ADD ON, HBSAB, CERULOP, SMAB, HCV RX PCR ####[facility] , Triglyceride w/Reflex 89 mg/dL Normal 0-149 [facility] Comment on above: Result Comment: TRIG ATP III CLASSIFICATION TRIG less than 150 mg/dL Normal TRIG 150-199 mg/dL Borderline high TRIG 200-500 mg/dL High TRIG greater than 500 mg/dL Very high Standard traceable to the Center for Disease Conrtrol and Prevention (CDC) test method. Performed By: #### F ER, HEPATIC, FE and TIBC, PT, LIPID, CBC ####[facility] [id number]#### HBCAB, HBSAG, ALPHA PHEN, REYNALDO RFX ADD ON, HBSAB, CERULOP, SMAB, HCV RX PCR ####[facility] , VLDL CHOLESTEROL 17 mg/dL Normal [facility] Comment on above: Performed By: #### F ER, HEPATIC, FE and TIBC, PT, LIPID, CBC ####[facility] [place] [address] [place]#### HBCAB, HBSAG, ALPHA PHEN, REYNALDO RFX ADD ON, HBSAB, CERULOP, SMAB, HCV RX PCR ####[facility] , Lymphocytes [#/volume] in Bl ood by Automated countOrdered By: Forest Giordano on 09-25-2023 Lymphocytes (Bld) [#/Vol] 3.1 10*3/uL Normal 1.00-4.8 [facility] Comment on above: Performed By: #### F ER, HEPATIC, FE and TIBC, PT, LIPID, CBC #### [facility] [address] [place] [address] [place] #### HBCAB, HBSAG, ALPHA PHEN, REYNALDO RFX ADD ON, HBSAB, CERULOP, SMAB, HCV RX PCR #### [facility] , Lymphocytes/100 leukocytes i n Blood by Automated countOrdered By: Forest Giordano on 09-25-2023 Lymphocytes/100 WBC (Bld) 42.7 % Normal . [facility] Comment on above: Performed By: #### F ER, HEPATIC, FE and TIBC, PT, LIPID, CBC #### [facility] [address] [place] [address] [place] #### HBCAB, HBSAG, ALPHA PHEN, REYNALDO RFX ADD ON, HBSAB, CERULOP, SMAB, HCV RX PCR #### [facility] , MCH [Entitic mass] by Automa toya countOrdered By: Forest Giordano on 09-25-2023 MCH (RBC) [Entitic mass] 30.9 pg Normal 24.7-34.3 [facility] Comment on above: Performed By: #### F ER, HEPATIC, FE and TIBC, PT, LIPID, CBC #### [facility] [address] [place] [address] #### HBCAB, HBSAG, ALPHA PHEN, REYNALDO RFX ADD ON, HBSAB, CERULOP, SMAB, HCV RX PCR #### [facility] , MCHC Auto (RBC) [Mass/Vol]Or dered By: Forest Giordano on 09-25-2023 MCHC (RBC) [Mass/Vol] 34.2 g/dL 32.0-35.0 [facility] MCV [Entitic volume] by Auto mated countOrdered By: Forest Giordano on 09-25-2023 MCV (RBC) [Entitic vol] 90.3 fL Normal 80-100 [facility] Comment on above: Performed By: #### F ER, HEPATIC, FE and TIBC, PT, LIPID, CBC #### [facility] [address] [place] [address] #### HBCAB, HBSAG, ALPHA PHEN, REYNALDO RFX ADD ON, HBSAB, CERULOP, SMAB, HCV RX PCR #### [facility] , Neutrophils [#/volume] in Bl ood by Automated countOrdered By: Forest Giordano on 09-25-2023 Neutrophils (Bld) [#/Vol] 3.4 10*3/uL Normal 1.8-7.7 [facility] Comment on above: Performed By: #### F ER, HEPATIC, FE and TIBC, PT, LIPID, CBC #### [address] #### HBCAB, HBSAG, ALPHA PHEN, REYNALDO RFX ADD ON, HBSAB, CERULOP, SMAB, HCV RX PCR #### [facility] , No Panel InformationOrdered By: Forest Giordano on 09-25-2023 Anti-Nuclear Antibody Interpret See comment . [facility] Comment on above: Autoantibody Disease Association --------- Condition Frequency ---------Antinuclear Antibody, SLE, mixed connectiveDirect (REYNALDO-D) tissue diseases ---------dsDNA SLE 40 - 60% ---------Chromatin Drug induced SLE 90% SLE 48 - 97% ---------SSA (Ro) SLE 25 - 35% Sjogren's Syndrome 40 - 70% Lupus 100% ---------SSB (La) SLE 10% Sjogren's Syndrome 30% ---------Sm (anti-Llanes) SLE 15 - 30% ---------MANAGER TRANSFUSION Mixed Connective Tissue Disease 95%(U1 nRNP, SLE 30 - 50%anti-ribonucleoprotein) Polymyositis and/or Dermatomyositis 20% ---------Scl-70 (antiDNA Scleroderma (diffuse) 20 - 35%topoisomerase) Crest 13% ---------Shey-1 Polymyositis and/or Dermatomyositis 20 - 40% ---------Centromere B Scleroderma - Crest variant 80%Performed at: [facility] [address] [id number] Director: Dhruv Schreiber PhD, Phone: [employer] Hepatitis B Core Total Antibody Negative Negative [facility] Comment on above: Performed at: [facility] [address] [id number] Director: Dhruv Schreiber PhD, Phone: [employer] Hepatitis C Interpretation See comment . [facility] Comment on above: Not infected with HC V unless early or acute infection issuspected (which may be delayed in an immunocompromisedindividual), or other evidence exists to indicate HCVinfection. MANAGER TRANSFUSION Antibody <0.2 AI 0.0-0.9 [facility] Nucleated erythrocytes [Pres ence] in Blood by Automated countOrdered By: Forest Giordano on 09-25-2023 Nucleated RBC Auto Ql (Bld) 0.1 /100{WBC} 0-0.5 [facility] Platelet mean volume [Entiti c volume] in Blood by Automated countOrdered By: Forest Giordano on 09-25-2023 Platelet mean volume (Bld) [Entitic vol] 8.9 fL Normal 6.3-10.7 [facility] Comment on above: Performed By: #### F ER, HEPATIC, FE and TIBC, PT, LIPID, CBC #### [facility] [address] #### HBCAB, HBSAG, ALPHA PHEN, REYNALDO RFX ADD ON, HBSAB, CERULOP, SMAB, HCV RX PCR #### [facility] , Platelets [#/volume] in Bloo d by Automated countOrdered By: Forest Giordano on 09-25-2023 Platelets (Bld) [#/Vol] 179 10*3/uL Normal 150-450 [facility] Comment on above: Performed By: #### F ER, HEPATIC, FE and TIBC, PT, LIPID, CBC #### [facility] [address] #### HBCAB, HBSAG, ALPHA PHEN, REYNALDO RFX ADD ON, HBSAB, CERULOP, SMAB, HCV RX PCR #### [facility] , Protein [Mass/volume] in Ser um or PlasmaOrdered By: Forest Giordano on 09-25-2023 Protein [Mass/Vol] 6.8 g/dL Normal 6.4-8.9 [facility] Comment on above: Performed By: #### F ER, HEPATIC, FE and TIBC, PT, LIPID, CBC ####[facility] [address] [place] [address] [place]#### HBCAB, HBSAG, ALPHA PHEN, REYNALDO RFX ADD ON, HBSAB, CERULOP, SMAB, HCV RX PCR ####[facility] , Prothrombin time (PT)Ordered By: Forest Giordano on 09-25-2023 PT Coag (PPP) [Time] 11.2 s Normal 9.0-12.9 [facility] Comment on above: A hematocrit value g reater than 55% may lead to inaccurate results in coagulation testing. Patients having hematocrit values >55% require a special collection tube for coagulation studies. Please contact the laboratory at [phone] for redraw instructions. Result Comment: A he matocrit value greater than 55% may lead to inaccurate results in coagulation testing. Patients having hematocrit values >55% require a special collection tube for coagulation studies. Please contact the laboratory at [phone] for redraw instructions. Performed By: #### F ER, HEPATIC, FE and TIBC, PT, LIPID, CBC ####[facility] [id number] [place] [id number] [facility]#### HBCAB, HBSAG, ALPHA PHEN, REYNALDO RFX ADD ON, HBSAB, CERULOP, SMAB, HCV RX PCR ####[facility] , Scl-70 antibody assayOrdered By: Forest Giordano on 09-25-2023 SCL-70 extractable nuclear Ab IA Qn (S) >8.0 AI 0.0-0.9 [facility] Serum Shey-1 extractable nucle ar antibody assay (units/volume)Ordered By: Forest Giordano on 09-25-2023 Shey-1 extractable nuclear Ab Qn (S) <0.2 AI 0.0-0.9 [facility] Serum Sjogrens syndrome-A ex tractable nuclear antibody assay (units/volume)Ordered By: Forest Giordano on 09-25-2023 Sjogrens syndrome-A extractable nuclear Ab Qn (S) <0.2 AI 0.0-0.9 [facility] Serum Sjogrens syndrome-B ex tractable nuclear antibody assay (units/volume)Ordered By: Forest Giordano on 09-25-2023 Sjogrens syndrome-B extractable nuclear Ab Qn (S) 0.5 AI 0.0-0.9 [facility] Serum Llanes extractable nucl ear antigen (SHALINI) antibody assay (units/volume)Ordered By: Forest Giordano on 09-25-2023 Llanes extractable nuclear Ab Qn (S) <0.2 AI 0.0-0.9 [facility] Serum [id number] me asurementOrdered By: Forest Giordano on 09-25-2023 Alpha 1 antitrypsin [Mass/Vol] 155 mg/dL 101-187 [facility] Serum centromere protein B a ntibody assay (units/volume)Ordered By: Forest Giordano on 09-25-2023 Centromere protein B Ab Qn (S) <0.2 AI 0.0-0.9 [facility] Serum globulin measurement b y calculation (mass/volume)Ordered By: Forest Giordano on 09-25-2023 Globulin (S) [Mass/Vol] 2.6 g/dL Normal F [facility] Comment on above: Performed By: #### F ER, HEPATIC, FE and TIBC, PT, LIPID, CBC ####[facility] [address]#### HBCAB, HBSAG, ALPHA PHEN, REYNALDO RFX ADD ON, HBSAB, CERULOP, SMAB, HCV RX PCR ####[facility] , Serum or plasma albumin/glob ulin mass ratioOrdered By: Forest Giordano on 09-25-2023 Albumin/Globulin [Mass ratio] 1.6 {ratio} Normal [facility] Comment on above: Performed By: #### F ER, HEPATIC, FE and TIBC, PT, LIPID, CBC ####[facility] [address] [place] [address] [place]#### HBCAB, HBSAG, ALPHA PHEN, REYNALDO RFX ADD ON, HBSAB, CERULOP, SMAB, HCV RX PCR ####[facility] , Serum or plasma alpha 1 anti trypsin phenotyping identification by immunofixationOrdered By: Forest Giordano on 09-25-2023 Alpha 1 antitrypsin phenotyping Immunofixation Nom Mm . [facility] Comment on above: Phenotype Population A-1-AT Concentration* Incidence % % of MM (Typical Range) MM 86.5% 100% (96 - 189) MS 8.0% 86% (83 - 161) MZ 3.9% 61% (60 - 111) FM 0.4% 100% (93 - 191) SZ 0.3% 41% (42 - 75) SS 0.1% 64% (62 - 119) ZZ 0.05% 19% (16 - 38) FS 0.05% 70% (70 - 128) FZ Unknown 46% (44 - 88) FF Unknown Unknown*A-1-AT concentration in the homozygous MM phenotype is taken as the reference normal. Percent deficiency in each phenotype is reported relative to this reference. Ranges used to confirm phenotype.Performed at: [facility] [address] [id number] Director: Dhruv Schreiber PhD, Phone: [phone] at: [facility] [id number] Director: Leyla Britt MD, Phone: [phone] Serum or plasma ceruloplasmi n measurement (mass/volume)Ordered By: Forest Giordano on 09-25-2023 Ceruloplasmin [Mass/Vol] 22.9 mg/dL 19.0-39.0 [facility] Comment on above: Performed at: [facility] [address] [id number] Director: Dhruv Schreiber PhD, Phone: [phone] Serum or plasma chromatin an tibody assay (units/volume)Ordered By: Forest Giordano on 09-25-2023 Chromatin Ab Qn <0.2 AI 0.0-0.9 [facility] Serum or plasma free cefurox latesha measurement (mass/volume)Ordered By: Forest Giordano on 09-25-2023 Cefuroxime free [Mass/Vol] Positive Negative [facility] Serum or plasma high density lipoprotein (HDL) cholesterol measurementOrdered By: Forest Giordano on 09-25-2023 Cholesterol in HDL [Mass/Vol] 59 mg/dL Normal 23-92 [facility] Comment on above: HDL CHOL ATP-III CLA SSIFICATION Cardiovascular RiskHDL > or equal to 60 mg/dL LOWHDL < 40 mg/dL HIGH Result Comment: HDL CHOL ATP-III CLASSIFICATION Cardiovascular Risk HDL > or equal to 60 mg/dL LOW HDL < 40 mg/dL HIGH Performed By: #### F ER, HEPATIC, FE and TIBC, PT, LIPID, CBC ####[place] [address] [address]#### HBCAB, HBSAG, ALPHA PHEN, REYNALDO RFX ADD ON, HBSAB, CERULOP, SMAB, HCV RX PCR ####[facility] , Serum or plasma non-glucuron idated bilirubin measurement (mass/volume)Ordered By: Forest Giordano on 09-25-2023 Bilirubin.indirect [Mass/Vol] 0.5 mg/dL [facility] Serum or plasma total choles terol/high density lipoprotein (HDL) cholesterol mass ratOrdered By: Forest Giordano on 09-25-2023 Cholesterol.total/Nanci sterol in HDL [Mass ratio] 3.4 {ratio} Normal <5.0 [facility] Comment on above: Result Comment: PERF ORMED BY: [facility] [address] [place] [address] PATHOLOGIST SECURITY SOFTWARE ENGINEER LORRAINE DIETZ M.D. Performed By: #### F ER, HEPATIC, FE and TIBC, PT, LIPID, CBC ####[place] [address] [address]#### HBCAB, HBSAG, ALPHA PHEN, REYNALDO RFX ADD ON, HBSAB, CERULOP, SMAB, HCV RX PCR ####[facility] , Smooth Muscle Antibodyon Smooth Muscle Antibody 129 High 0-19 [facility] Comment on above: Result Comment: Nega tive 0 - 19 Weak positive 20 - 30 Moderate to strong positive >30 Actin Antibodies are found in 52-85% of patients with autoimmune hepatitis or chronic active hepatitis and in 22% of patients with primary biliary cirrhosis. Performed at: - [facility] [id number] Cashier Or Checker Stock Clerk: Dhruv Schreiber PhD, Phone: [phone] PERFORMED BY: [facility] [address] [place] [address] PATHOLOGIST SECURITY SOFTWARE ENGINEER LORRAINE DIETZ M.D. Performed By: #### F ER, HEPATIC, FE and TIBC, PT, LIPID, CBC ####[facility] [address] [place] [address] [place]#### HBCAB, HBSAG, ALPHA PHEN, REYNALDO RFX ADD ON, HBSAB, CERULOP, SMAB, HCV RX PCR ####[facility] , Transferrin [Mass/volume] in Serum or PlasmaOrdered By: Forest Giordano on 09-25-2023 Transferrin [Mass/Vol] 236 mg/dL Normal 203-362 [facility] Comment on above: Performed By: #### F ER, HEPATIC, FE and TIBC, PT, LIPID, CBC ####[facility] [address] [place] [address] [place]#### HBCAB, HBSAG, ALPHA PHEN, REYNALDO RFX ADD ON, HBSAB, CERULOP, SMAB, HCV RX PCR ####[facility] , Triglyceride [Mass/volume] i n Serum or PlasmaOrdered By: Forest Giordano on 09-25-2023 Triglyceride [Mass/Vol] 89 mg/dL 0-149 [facility] Comment on above: TRIG ATP III CLASSIF ICATIONTRIG less than 150 mg/dL NormalTRIG 150-199 mg/dL Borderline highTRIG 200-500 mg/dL High TRIG greater than 500 mg/dL Very highStandard traceable to the Center for Disease Conrtrol and Prevention (CDC) test method. US liveron 09-25-2023 liver [facility] [place] [address] Ultrasound Report Signed Patient: Dejah Dykes MR#: [id number] : 1970 Acct:[id number] Age/Sex: 53 / F ADM Date: 09/25/23 Loc: Room: Type: [facility] Attending Dr: Forest Giordano APRN Ordering Provider: Forest Giordano APRN Date of Service: 09/25/23 US/US liver: K76.0 - Fatty (change of) liver, not elsewhere classified Copies to: Forest Giordano APRN LIMITED ABDOMINAL ULTRASOUND - the liver CLINICAL HISTORY: Follow-up fatty liver. Prior cholecystectomy. COMPARISON: None The gallbladder surgically absent. No intrahepatic biliary dilatation is evident. The common duct is prominent measuring 8 - 9 mm. No filling defects are visualized within the segment that is imaged. The liver is parenchyma is echogenic suggesting fatty infiltration. No focal intrahepatic masses are seen. There is appropriate hepatopetal flow within the main portal vein. The visualized portions of the pancreas show no significant sonographic abnormality. Cursory evaluation of the right kidney reveals no hydronephrosis or fluid within Santiago's pouch. US/US liver IMPRESSION: FATTY LIVER. PROMINENT COMMON DUCT. THIS MAY RELATE TO PREVIOUS CHOLECYSTECTOMY. Impression dictated by: Alka Earl M.D.09/25/2023 3:07 PM Dictation Location: [place] [address] Tech: [facility] Transcribed By: YADIRA 09/25/23 1507 Dictated By: Alka Earl MD 09/25/23 1505 Signed By: 09/25/23 1507 Normal [facility] CNOVon 09-24-2023 CNOV Office Visit (STED) -- DEJAH DYKES ([id number]) 1970 F Date Time Provider Department 09/24/23 1:00 PM ALFREDO CRUZ STED During your visit today, we recorded the following information about you: Pulse Blood pressure Weight Height 84/minute 145/84 115 kg 1.626 m Alfredo Cruz MD 09/24/2023 2:51 PM Signed Endocrinology and Metabolism [facility] - Initial Visit Patient Name: Dejah Dykes Referring Provider: Elly Galicia [address] [place] [address] My final recommendations will be communicated back to the requesting physician by way of shared medical record or letter via US mail. Chief complaint: medical weight management HPI: Dejah Dykes is a 53 year old female who presents on September 24, 2023 for medical weight management. Weight history: Struggled with weight for a very long time but acutely gained weight when she was diagnosed with hypothyroidism Previous attempts at weight loss: phentermine many years ago Maximum weight: 270lbs Current weight: 253lbs Patient goal or motivation for weight loss: b/l OA of knees, back pain Factors associated with weight gain: Family history of overweight: yes or menopause: menopausa Tobacco use: no Weight gain associated with shift work: no Poor quality, unrestful sleep: yes Medications may be associated with weight gain: bisoprolol Weight graph: Target Weight : 200 pounds Last Wt 09/24/23 : 115 kg (253 lb 8.5 oz) 5% weight loss = 241 lbs, 10% weight loss = 228 lbs 24-HR RECALL OF MEALS: Breakfast: wheat bagel with cream cheese Lunch: hamburger without bun, with lettuce, tomato and ketchup Dinner: slice of pork, half potato and corn Typical beverages: regular soda Sugar-containing beverages: yes, 1 MINI can per day EtOH: No Eating out/take out: Yes, once every few weeks Feel hungry frequently: No Takes more food than average to feel full: No Feels hungry quickly after eating a meal: No Eat when not hungry (boredom, stress/emotional): Yes Frequent cravings or preoccupation with food: No Frequently overeating or binge eating: No Portion control: Yes Late night or middle of night eating: No Exercise/activity level: Walking Limited due to back pain, b/l knee pain Planning to walk in the swimming pool Sleep: SAIMA: yes CPAP: yes Mood, stress: Well managed 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, 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 Substance use: none Previous experience with weight loss medications: yes Bupropion/naltrexone: no Phentermine: years ago Topiramate: no GLP-1/GIP: no Metformin: no History of bariatric surgery or interest in bariatric surgery: no Medical history pertaining to weight loss medications: History of pancreatitis or gallstones: no History of kidney stones: yes, 15 stones in the last 20 years History of seizures: no Current opiate use: no History of glaucoma: no History of CAD or uncontrolled HTN: no Personal/family history of MEN2, MTC: no History of diabetic retinopathy: no Method of contraception if woman of child bearing age: n/a CO-MORBIDITIES: Hypertension, Obstructive Sleep Apnea, and Osteoarthritis ALLERGIES: ALLERGIES Allergen Reactions - Vicodin [Hydrocodon* Other: See Comments Hallucinations - Adhesive Tape (Windy* Rash, Itching - Seasonal Allergies Itching, Other: See Comments Watery eyes, runny nose, sneezing Current Outpatient Medications on File Prior to Visit Medication Sig - oxyCODONE-acetaminophen (PERCOCET) 5-325 mg tablet Take 1 tablet by mouth q 6 HR. - pregabalin (LYRICA) 75 mg capsule Take 75 mg by mouth. - levothyroxine 50 mcg cap Take 50 mcg by mouth daily before breakfast. - potassium chloride 20 mEq TbER Take 20 mEq by mouth once daily. - bisoprolol-hydroCHLOROthia zide (ZIAC) 5-6.25 mg per tablet Take by mouth. - zolpidem (AMBIEN) 10 mg ORAL Tab Take 1 tablet by mouth at bedtime as needed. for insomnia. - montelukast (SINGULAIR) 10 mg ORAL tablet Take 1 tablet by mouth daily at bedtime. - Minocycline 135 mg ORAL Tb24 Take by mouth. No current facility-administered medications on file prior to visit. PAST MEDICAL HISTORY Diagnosis Date - Acne rosacea 02/01/2023 - Acquired hypothyroidism 02/14/2023 Last Assessment AND Plan: Will continue current meds and see in one month - Class 3 severe obesity with body mass index (BMI) of 40.0 to 44.9 in adult ([facility]) 02/01/2023 - Essential hypertension 01/04/2023 - Kidney stones 02/01/2023 - Neuroma 08/22/2011 - OCD (osteochondritis dissecans) of talus 03/14/2011 - Osteoarthrosis, unspecified whether generalized or localized, ankle and foot 03/20/2011 - Sleep apnea in adult 01/04/2023 History reviewed. No pertinent surgical hist (more content not included)... Normal [facility] Comprehensive metabolic 2000 panelon 09-24-2023 Albumin [Mass/Vol] 4.1 g/dL Normal 3.9-4.9 [facility] Comment on above: Order Comment: Speci men Type: BLOOD SPECIMEN Ordering Facility: [facility] Address: [address] [place] [address] Performed By: #### 3 024-7, 3016-3, 61283-2 #### [facility] CLIA [id number] [address] [place] [address] [place] ALP [Catalytic activity/Vol] 83 U/L Normal 34-123 [facility] Comment on above: Order Comment: Speci men Type: BLOOD SPECIMEN Ordering Facility: [facility] Address: [address] Performed By: #### 3 024-7, 3016-3, 43256-2 #### [facility] CLIA [id number] [address] [place] [address] [place] ALT [Catalytic activity/Vol] 63 U/L High 7-38 [facility] Comment on above: Order Comment: Speci men Type: BLOOD SPECIMEN Ordering Facility: [facility] Address: [address] Performed By: #### 3 024-7, 3016-3, 87726-8 #### [facility] CLIA [id number] [address] [place] [address] [place] Anion gap [Moles/Vol] 13 mmol/L Normal 9-18 [facility] Comment on above: Order Comment: Speci men Type: BLOOD SPECIMEN Ordering Facility: [facility] Address: [address] Performed By: #### 3 024-7, 3016-3, 78989-5 #### [facility] CLIA [id number] [facility] [place] [address] [place] AST [Catalytic activity/Vol] 68 U/L High 13-35 [facility] Comment on above: Order Comment: Speci men Type: BLOOD SPECIMEN Ordering Facility: [facility] Address: [address] Performed By: #### 3 024-7, 3016-3, 86067-1 #### [facility] CLIA [id number] [address] [place] [address] [place] Bilirubin [Mass/Vol] 0.6 mg/dL Normal 0.2-1.3 [facility] Comment on above: Order Comment: Speci men Type: BLOOD SPECIMEN Ordering Facility: [facility] Address: [address] Performed By: #### 3 024-7, 3016-3, 54656-9 #### [facility] CLIA [id number] [address] [place] [address] [place] Calcium [Mass/Vol] 9.7 mg/dL Normal 8.5-10.2 [facility] Comment on above: Order Comment: Speci men Type: BLOOD SPECIMEN Ordering Facility: [facility] Address: [address] [place] [address] Performed By: #### 3 024-7, 6-3, 98764-9 #### [facility] CLIA [id number] [address] [place] [address] [place] Chloride [Moles/Vol] 104 mmol/L Normal 97-105 [facility] Comment on above: Order Comment: Speci men Type: BLOOD SPECIMEN Ordering Facility: [facility] Address: [address] Performed By: #### 3 024-7, 301-3, 66539-2 #### [facility] CLIA [id number] [address] [place] [address] [place] CO2 [Moles/Vol] 26 mmol/L Normal 22-30 [facility] Comment on above: Order Comment: Speci men Type: BLOOD SPECIMEN Ordering Facility: [facility] Address: [address] Performed By: #### 3 024-7, 3016-3, 53530-8 #### [facility] CLIA [id number] [address] STATES OF [facility] Creatinine [Mass/Vol] 0.73 mg/dL Normal 0.58-0.96 [facility] Comment on above: Order Comment: Pauline giordano Type: BLOOD SPECIMEN Ordering Facility: [facility] Address: [address] [place] [address] Performed By: #### 3 024-7, 3016-3, 31166-1 #### [facility] CLIA [id number] [address] [place] [address] OF [facility] Creatinine and Glomerular filtration rate.predicted panel (S/P/Bld) 98 mL/min/1.73m??? Normal >=60 [facility] Comment on above: Order Comment: Pauline giordano Type: BLOOD SPECIMEN Ordering Facility: [facility] Address: [address] [place] [address] Result Comment: Brenda mated Glomerular Filtration Rate (eGFR) is calculated using the 2020 CKD-EPI creatinine equation. This equation utilizes serum creatinine, sex, and age as parameters. The creatinine assay has traceable calibration to isotope dilution-mass spectrometry. Refer to KDIGO guidelines for clinical interpretation. In patients with unstable renal function, e.g. those with acute kidney injury, the eGFR may not accurately reflect actual GFR. Performed By: #### 3 024-7, 3016-3, 47904-0 #### [facility] CLIA [id number] [address] [place] [address] [place] Glucose [Mass/Vol] 82 mg/dL Normal 74-99 [facility] Comment on above: Order Comment: Pauline giordano Type: BLOOD SPECIMEN Ordering Facility: [facility] Address: [address] [place] [address] Result Comment: The [place] Diabetes Association (ADA) provides guidance for cutoff values for fasting glucose and random glucose. The ADA defines fasting as no caloric intake for at least 8 hours. Fasting plasma glucose results between 100 to 125 mg/dL indicate increased risk for diabetes (prediabetes). Fasting plasma glucose results greater than or equal to 126 mg/dL meet the criteria for diagnosis of diabetes. In the absence of unequivocal hyperglycemia, results should be confirmed by repeat testing. In a patient with classic symptoms of hyperglycemia or hyperglycemic crisis, random plasma glucose results greater than or equal to 200 mg/dL meet the criteria for diagnosis of diabetes. Reference: Standards of Medical Care in Diabetes 2016, [place] Diabetes Association. Diabetes Care. 2016.39(Suppl 1). Performed By: #### 3 024-7, 3016-3, 89082-8 #### [facility] CLIA [id number] [address] [place] [address] [place] Potassium [Moles/Vol] 3.4 mmol/L Low 3.7-5.1 [facility] Comment on above: Order Comment: Speci men Type: BLOOD SPECIMEN Ordering Facility: [facility] Address: [address] [place] [address] Performed By: #### 3 024-7, 6-3, 77887-6 #### [facility] CLIA [id number] [address] [place] [address] [place] Protein [Mass/Vol] 7.2 g/dL Normal 6.3-8.0 [facility] Comment on above: Order Comment: Pauline giordano Type: BLOOD SPECIMEN Ordering Facility: [facility] Address: [address] [place] [address] Performed By: #### 3 024-7, 6-3, 81648-2 #### [facility] CLIA [id number] [address] [place] [address] [place] Sodium [Moles/Vol] 143 mmol/L Normal 136-144 [facility] Comment on above: Order Comment: Speci men Type: BLOOD SPECIMEN Ordering Facility: [facility] Address: [address] [place] [address] Performed By: #### 3 024-7, 6-3, 54591-0 #### [facility] CLIA [id number] [address] [place] [id number] [place] Urea nitrogen [Mass/Vol] 8 mg/dL Normal 7-21 [facility] Comment on above: Order Comment: Pauline giordano Type: BLOOD SPECIMEN Ordering Facility: [facility] Address: [address] [place] [id number] Performed By: #### 3 024-7, 3016-3, 52976-3 #### [facility] CLIA [id number] [address] [place] [address] [place] HbA1c (Bld)on 09-24-2023 Average glucose Estimated from glycated hemoglobin (Bld) [Mass/Vol] 120 mg/dL [facility] HbA1c (Bld) [Mass fraction] 5.8 % High 4.3 - 5.6 % [facility] Average glucose Estimated from glycated hemoglobin (Bld) [Mass/Vol] 120 mg/dL Normal [facility] Comment on above: Order Comment: Pauline giordano Type: BLOOD SPECIMEN Ordering Facility: [facility] Address: [address] [place] [address] Result Comment: eAG: (Estimated average glucose) is a calculated value from HgbA1c and is service center representative of the average blood glucose level in the last 2-3 month period. Performed By: #### 5 5454-3 #### [facility] CLIA [id number] [address] [place] [address] [place] HbA1c (Bld) [Mass fraction] 5.8 % High 4.3-5.6 [facility] Comment on above: Order Comment: Pauline giordano Type: BLOOD SPECIMEN Ordering Facility: [facility] Address: [address] [place] [address] Result Comment: [place] Diabetes Association guidelines indicate that patients with HgbA1c in the range 5.7-6.4% are at increased risk for development of diabetes, and intervention by lifestyle modification may be beneficial. HgbA1c greater or equal to 6.5% is considered diagnostic of diabetes. Performed By: #### 5 5454-3 #### [facility] CLIA [id number] [address] [place] [address] [place] Heart and Vascular Office/Cl in Noteon 09-14-2023 Heart and Vascular Office/Clinic Note Chief Complaint 6 wk follow up History of Present Illness Dejah Dykes presents today for a follow-up evaluation. She is doing well. She had a hypothyroidism flare last week. This is new to her and notes it creates inflammation in her joints. She is currently taking levothyroxine. She denies a recent increase in her medication. She is being referred to a php software engineer. She denies taking NSAIDs for her pain. She has a high tolerance for pain. She notes that by the time she recognizes that she is in pain, it is typically at a point where intervention is delayed, resulting in the necessity for surgical procedures. The only cardiac problem she has is hypertension. She reports that she has liver issues. She had kidney stones. Review of Systems PHQ Score Initial Depression Screen Score: 0 SCORE Constitutional: no fever, no sweats, no weakness Skin: no rash, no lesions, no bruising/petechiae ENMT: no sore throat, no congestion, no hoarseness Respiratory: no shortness of breath, no cough, no orthopnea, no wheezing Cardiovascular: no chest pain, no palpitations, no edema Gastrointestinal: no nausea, no vomiting, no diarrhea, no GI bleeding Genitourinary: no anuria/oliguria no hematuria Musculoskeletal: no back pain, no trauma, positive for joint pain, positive for lower extremities edema Neurologic: no headache, no dizziness, no numbness, no weakness Psychiatric: no sleeping problems, no irritability, no anxiety/depression. Heme/Lymph: no bleeding tendency, no bruising tendency Allergy/Immunologic: no recurrent infections, no impaired immunity Additional ROS info: Except as noted in the above Review of Systems and in the History of Present Illness all other systems have been reviewed and are negative or noncontributory Physical Exam Vitals & Measurements HR: 77(Peripheral) BP: 130/78 SpO2: 99% HT: 64 in HT: 162 cm WT: 116 kg WT: 255.2 lb BMI: 44.2 General: alert, no acute distress Skin: warm, dry intact Head: atraumatic, normocephalic Neck: trachea midline, no JVD, no bruit Eye: normal conjunctiva, sclera clear ENMT: oral mucosa moist Cardiovascular: regular rate and rhythm, no murmur, normal peripheral perfusion Respiratory: lungs CTA, respirations non labored Chest wall: no deformity. Gastrointestinal: soft, non-distended, no tenderness, no guarding. Back: no tenderness, normal ROM, normal alignment. Extremities: no edema, no deformity, no trauma Neurological: oriented x 4, LOC appropriate for age, sensation equal & normal bilaterally, speech normal Psychiatric: cooperative, affect appropriate for age, normal judgement, normal psychiatric thoughts. Assessment/Plan 1. Lower Extremity Edema Advised the patient to elevate the lower extremities, to wear compression socks, and to avoid salt. If it is bothersome, she may consider trying furosemide. Instructed the patient that if the symptom worsens, she should schedule an appointment to return, and we can consider prescribing a diuretic. We did not perform a stress test. 2. Morbid Obesity BMI 44 Contributing to above. Diet and exercise as tolerated is recommended to promote weight loss and improve cardiovascular wellness. Follow up in 6 months. Portions of this record may have been created with voice recognition artificial intelligence software, specifically OrthoScan, [employer] and or OrthoScan. Substitutions may have occurred due to the inherent limitations of voice recognition and artificial intelligence software. ATTESTATION: Documentation services were performed after the patient or guardian consented to allow [employer] to record this visit. NESTOR medical management specialist and provider reviewed before signing. NESTOR: Luc Mejia Ano-os/ Pasted by: Laura Bautista. Follow-up No qualifying data available Problem List/Past Medical History Ongoing Acne rosacea Class 3 severe obesity with body mass index (BMI) of 40.0 to 44.9 in adult Frequent UTI Influenza vaccination up to date Kidney stones Non-tobacco user Osteochondritis dissecans Urine frequency Historical DVT Kidney stones Procedure/Surgical History Arthroscopy of shoulder (06/22/2020), Arthroscopy of knee (12/24/2018), Laminectomy (07/22/2017), left extracorporeal shockwave lithotripsy (10/08/2014), cystoscopy, left retrograde ureteropyelogram, and double-J stent insertion (10/05/2014), robotic-assisted hysterectomy with bilateral salpingectomy (04/09/2014), right foot surgery (12/30/2009), Appendectomy, Arthroscopy of shoulder, Bilateral tubal ligation, Cholecystectomy, Ligament repair. Medications Ambien 10 mg Tab, 10 mg= 1 tab(s), Oral, Once a day (at bedtime), PRN, 1 refills Estrace 0.1 mg/g Cream, See Instructions, 5 refills levothyroxine 50 mcg (0.05 mg) Tab meloxicam 15 mg oral tablet, 15 mg= 1 tab(s), Oral, Daily minocycline 100 mg Cap, 100 mg, Oral, Daily, 1 refills potassium chloride 10 mEq ER Tab, 10 mEq= 1 ta (more content not included)... Normal [facility] Comment on above: Result Comment: Elec tronically Signed By: Carlos ARCOS, Forest Jung\.br\Date and Time Signed: 09/14/23 12:38 EST\.br\Electronically Co-Signed By: Laura Bautista\.br\Date and Time Co-Signed: 09/12/23 15:19 EST Consent for Treatmenton Consent for Treatment [id number]#[id number] [facility] Physician Orderon 09-12-2023 Physician Order [id number]#1.00TIFF [facility] MA Mamm Screen w/CAD if perf and 3D Bilon 09-02-2023 MA Mamm Screen w/CAD if perf and 3D Gunnar Exam Date/Time: 08/30/2023 13:37 EST Reason for Exam: Z12.31 SCREENING Report IMPRESSION: BIRADS 1 NEGATIVE, NORMAL INTERVAL FOLLOW-UP. EXAMINATION: MA Mamm Screen w/CAD if perf and 3D Gunnar CLINICAL HISTORY: Z12.31 SCREENING COMPARISON: Priors from 2021, 2013 RESULT: Digital mammography and 3D tomosynthesis of bilateral breasts was performed. Almost entirely fatty. There is no suspicious mass, asymmetry, architectural distortion, or calcification. Vascular calcifications: Absent. CAD analysis was performed and used in the interpretation. Dense Breast: No Follow-up: 12 MONTH RECALL. Board Certified Radiologists. Accredited by the ACR and FDA. MAMMOGRAPHY IS VERY IMPORTANT TO YOUR HEALTH. THE [place] [employer] GUIDELINES RECOMMEND THAT WOMEN 40 YEARS OF AGE AND OLDER SHOULD HAVE A MAMMOGRAM EVERY YEAR. A REMINDER LETTER WILL BE SENT AT THE APPROPRIATE TIME. THIS FACILITY UTILIZES A REMINDER SYSTEM TO ENSURE ALL PATIENTS RECEIVE REMINDER NOTIFICATIONS AT THE APPROPRIATE TIME BASED ON THE RECOMMENDATIONS OF THIS EXAM. THIS INCLUDES REMINDERS FOR ROUTINE SCREENING MAMMOGRAMS, DIAGNOSTIC MAMMOGRAMS IN WHICH THE PATIENT IS ASKED TO RETURN FOR ADDITIONAL VIEWS, OR OTHER BREAST IMAGING INTERVENTIONS WHEN APPROPRIATE. THE PATIENT WILL BE PLACED IN THE APPROPRIATE REMINDER SYSTEM INCLUDING A REMINDER AT THE APPROPRIATE TIME FOR ANY PENDING ADDITIONAL VIEWS. Report Ordering Provider: Lenora SANTOS FINAL REPORT Dictated: 09/02/2023 12:13 pm Layton Terry MD Signed (Electronic Signature): 09/02/2023 12:13 pm Signed by: Layton Terry MD Transcribed by: JOSE Technologist: [facility] [address] Assessment: BI-RADS Category 1-Negative Recommendation: Normal interval follow-up Normal [facility] Consent for Treatmenton 08-06 Consent for Treatment [id number]#[id number] Normal [facility] Outside Records Officeon Outside Records Office [id number]#1.00TIFF Normal [facility] Referrals Officeon 4 Referrals Office [id number]#1.00TIFF Normal [facility] US LE Venous Duplex Insuffic iency Bilaton 08-14-2023 LE Venous Duplex Insufficiency Bilat Exam Date/Time: 08/13/2023 13:06 EST Reason for Exam: R60.9;Swelling Report IMPRESSION: RIGHT LEG-DEEP VEINS. NEGATIVE FOR DEEP VENOUS THROMBOSIS. RIGHT LEG-SUPERFICIAL VEINS. GREATER SAPHENOUS VEIN AND SMALL SAPHENOUS VEIN NEGATIVE FOR VALVULAR INCOMPETENCY. LEFT LEG-DEEP VEINS. NEGATIVE FOR DEEP VENOUS THROMBOSIS. LEFT LEG SUPERFICIAL VEINS. GREATER SAPHENOUS VEIN AND SMALL SAPHENOUS VEIN NEGATIVE FOR VALVULAR INCOMPETENCY. CLINICAL HISTORY: Swelling, R60.9. Bilateral leg swelling. COMMENT: On the right, the greater saphenous vein, common femoral vein, femoral vein, deep femoral vein, and popliteal vein demonstrate spontaneous phasic venous flow with augmentation, competence, non-pulsatility, and compressibility every 2 cm. The posterior tibial and peroneal right deep calf veins compress. On the left, the greater saphenous vein, common femoral vein, femoral vein, deep femoral vein, and popliteal vein demonstrate spontaneous phasic venous flow with augmentation, competence, non-pulsatility, and compressibility every 2 cm. The posterior tibial and peroneal left deep calf veins compress. The right and left greater saphenous and small saphenous vein measurements are detailed below. Ordering Provider: Forest Gonzalez FINAL REPORT Dictated: 08/14/2023 4:04 pm Ray Balderas M.D. Signed (Electronic Signature): 08/14/2023 4:04 pm Signed by: Ray Balderas M.D. Transcribed by: JOSE Technologist: [place]OVER, Technical Comments Patient Position Reverse Trendelenburg CFV Reflux (sec): None. DFV Reflux (sec): None. FV Prox Reflux (sec): None. FV Mid Reflux (sec): None. FV Dist Reflux (sec): None. Pop V Reflux (sec): None. Right Greater Saphenous: Saphenofemoral Junction (at/near): Diameter 0.9 Depth: Intrafascial Reflux (sec): None. Technical Comments Prox thigh: Diameter 0.3 Depth: Intrafascial Reflux (sec): None. Mid thigh: Diameter 0.4 Depth: Intrafascial Reflux (sec): None. Distal thigh: Diameter 0.3 Depth: Intrafascial Reflux (sec): None. At Knee Diameter 0.4 Depth: Intrafascial Reflux (sec): None. Proximal lower leg: Diameter 0.3 Depth: Intrafascial Reflux (sec): None. Mid lower leg: Diameter 0.3 Depth: Intrafascial Accessory Saphenous: Diameter non vis Right Small Saphenous: Connects to: Distal Thigh Junction/Proximal Calf Diameter 0.2 Depth: Intrafascial Reflux (sec): None. Mid calf: Diameter 0.2 Depth: Intrafascial Reflux (sec): None. Patient Position Reverse Trendelenburg CFV Reflux (sec): None. DFV Reflux (sec): None. FV Prox Reflux (sec): None. FV Mid Reflux (sec): None. FV Dist Reflux (sec): None. Pop V Reflux (sec): None. Left Greater Saphenous: Saphenofemoral Junction (at/near): Diameter 0.7 Depth: Intrafascial Reflux (sec): None. Prox thigh: Diameter 0.5 Depth: Intrafascial Reflux (sec): None. Mid thigh: Diameter 0.3 Depth: Intrafascial Reflux (sec): None. Distal thigh: Diameter 0.3 Depth: Intrafascial Reflux (sec): None. At Knee Diameter 0.4 Depth: Intrafascial Reflux (sec): None. Proximal lower leg: Diameter 0.4 Depth: Intrafascial Reflux (sec): None. Mid lower leg: Diameter 0.3 Depth: Intrafascial Reflux (sec): None. Accessory Saphenous: Diameter non vis Left Small Saphenous: Connects to: Distal Thigh Junction/Proximal Calf Diameter 0.4 Depth: Intrafascial Reflux (sec): None. Mid calf: Diameter 0.3 Depth: Intrafascial Reflux (sec): None. Normal [facility] Consent for Treatmenton Consent for Treatment [id number] Normal [facility] ED Note-Physicianon 08-13-19 24 ED Note-Physician Basic Information Time Seen: Brian Brito PA-C 08/12/2023 11:41 Chief Complaint pt c\o increased R hip pain since yesterday, taking tramadol for chronic pain NKI History of Present Illness 53-year-old female comes to the ED for evaluation of right hip pain. She has a history of chronic back pain which she is on tramadol. Over the last 2 days she has had pain to the right hip area with some radiation down the leg. No precipitating trauma. No associated paresthesias or saddle anesthesia. No lower extremity weakness. No bowel or bladder incontinence or retention. No dysuria or hematuria. No associated abdominal pain, nausea, vomiting, fever or chills. Review of Systems A 10 point review of systems is negative except as noted above. Medical and Surgical History: Reviewed and noted Social history: Lives at home Tobacco: Denies Physical Exam Vitals & Measurements T: 36.8 ?C(Oral) HR: 72(Peripheral) RR: 14 BP: 164/87 SpO2: 100% HT: 162 cm WT: 125 kg BMI: 47.63 Nurses notes and vital signs reviewed and patient is not hypoxic. General: The patient appears well, resting comfortably. Skin: Warm, dry. Head: Atraumatic. Neck: No JVD. Eye: Normal conjunctiva. Ears, Nose, Mouth, and Throat: Moist mucous membranes. Cardiovascular: Strong distal pulses. Chest wall: Respiratory: Respirations are nonlabored. Back: Normal range of motion. Musculoskeletal: Tenderness over the right sciatic region. No midline spinal tenderness. No evidence of neurovascular compromise Gastrointestinal: Urological: Neurological: Awake and alert. No focal deficits. Follows commands. Psychiatric: Cooperative. Medical Decision Making Patient presents with acute on chronic hip pain, most likely sciatica. She was medicated here with improvement. She is discharged home with prednisone and is to continue with her Ultram as prescribed. She is to follow-up with her PCP. Patient was encouraged to return to the ED if symptoms worsen or change. Assessment/Plan Hip pain (M25.559: Pain in unspecified hip) Orders: ketorolac, 60 mg = 2 mL, Injection, IntraMuscular, Once, Stop date 08/12/23 11:49:00 EST, STAT, Start date 08/12/23 11:49:00 EST, 08/12/23 11:49:00 EST morphine, 4 mg = 2 mL, Injection, IntraMuscular, Once, Stop date 08/12/23 11:50:00 EST, STAT, Start date 08/12/23 11:50:00 EST, 08/12/23 11:50:00 EST ondansetron, 4 mg = 1 tab(s), Tab-Dis, Oral, Once, Stop date 08/12/23 11:49:00 EST, STAT, Start date 08/12/23 11:49:00 EST, 08/12/23 11:49:00 EST predniSONE, 60 mg = 3 tab(s), Oral, Daily, X 7 day(s), # 21 tab(s), Refills(s) 0, Pharmacy: [id number], 162, cm, 08/12/23 11:38:00 EST, Height/Length Dosing, 125, kg, 08/12/23 11:38:00 EST, Weight Dosing Medications Administered Given ketorolac 60 mg/2 mL Injection, 60 mg, IntraMuscular morphine 2 mg/mL Inj, 4 mg, IntraMuscular Zofran ODT 4 mg Tab-Dis, 4 mg, Oral Disposition Plan Patient Discharge Condition Disposition: Discharged home Condition: Improved and stable Counseled: Patient and/or family were counseled to workup, results, treatment plan and follow-up recommendations Discharge Prescription List Prescriptions predniSONE 20 mg Tab, 60 mg= 3 tab(s), Oral, Daily Follow-up With When Contact Information Lenora SANTOS In 3 days 08/15/2023 EST [address] [place] [phone] [facility] (1) Additional Instructions: Patient Education Hip Pain Attestation Patient seen and evaluated by the physician autopsy assistant. Attending physician was present in the emergency department and supervised care. This visit was performed by both the physician and an APC. I performed all aspects of the MDM as documented. This report was transcribed using voice recognition software. Every effort was made to ensure accuracy, however, inadvertently computerized employment case manager mistakes may be present. Appropriate healthcare PPE was used in evaluating this patient. The patient was placed in a mask. The healthcare provider was wearing mask, gloves, and utilizing proper hand hygiene. All equipment was properly cleansed. Problem List/Past Medical History Ongoing Acne rosacea Class 3 severe obesity with body mass index (BMI) of 40.0 to 44.9 in adult Frequent UTI Influenza vaccination up to date Kidney stones Non-tobacco user Osteochondritis dissecans Urine frequency Historical DVT Kidney stones Procedure/Surgical History Arthroscopy of shoulder (06/22/2020), Arthroscopy of knee (12/24/2018), Laminectomy (07/22/2017), left extracorporeal shockwave lithotripsy (10/08/2014), cystoscopy, left retrograde ureteropyelogram, and double-J stent insertion (10/05/2014), robotic-assisted hysterectomy with bilateral salpingectomy (04/09/2014), right foot surgery (12/30/2009), Appendectomy, Arthroscopy of shoulder, Bilateral tubal ligation, Cholecystectomy, Ligament repair. Medications Inpatient No active inpatient medications Home Ambien 10 mg Tab, 10 (more content not included)... Normal [facility] Comment on above: Result Comment: Elec tronically Signed By: Alisha RENEE, Brian\.br\Date and Time Signed: 08/12/23 14:35 EST\.br\Electronically Co-Signed By: James Richards DO\.alton\Date and Time Co-Signed: 08/13/23 08:46 EST Physician Orderon 08-13-2023 Physician Order [id number] Normal [facility] RAD - Ultrasound Impressiono n 08-13-2023 RAD - Ultrasound Impression [id number] Normal [facility] Consent for Treatmenton Consent for Treatment [id number]#[id number] Normal [facility] Discharge Instructionson Discharge Instructions [id number] Normal [facility] ED Clinical Summaryon 2023 ED Clinical Summary (Inserted Image. Carrie ble to display) [place] [address] ED Clinical Summary Person Information Name: DEJAH DYKES [facility] Age: 53 Years : 1970 Sex: Female Language: Greek PCP: Lenora SANTOS PA-C Marital Status: Visit Id: Visit Reason: Leg pain-swelling; Hip pain-swelling; RIGHT HIP & LEG PAIN Speciality: Acuity: 4 Enc Type: Emergency Med Service: Emergency Arrival: 08/12/2023 11:28:07 Discharge: 08/12/2023 12:40:28 LOS: 000 01:12 Checkin: 08/12/2023 11:28:07 Checkout: 08/12/2023 12:40:28 Dispo Type: Home (Routine DC) EVENTS: Event Name Event Status Request Date/Time Start Date/Time Complete Date/Time Arrive Complete 08/12/2023 11:28:07 08/12/2023 11:28:07 08/12/2023 11:28:07 Document Home Meds Request 08/12/2023 11:28:07 Triage Complete 08/12/2023 11:28:07 08/12/2023 11:38:24 08/12/2023 11:38:24 Bed Assign Complete 08/12/2023 11:34:26 08/12/2023 11:34:26 08/12/2023 11:34:26 Dr Exam Complete 08/12/2023 11:34:27 08/12/2023 11:41:33 08/12/2023 11:41:33 RN Exam Complete 08/12/2023 11:34:27 08/12/2023 11:48:56 08/12/2023 11:48:56 Registration Complete 08/12/2023 11:41:33 08/12/2023 12:13:48 08/12/2023 12:13:48 Dr Exam Complete 08/12/2023 11:41:56 08/12/2023 11:41:56 08/12/2023 11:41:56 Meds Admin Complete 08/12/2023 11:50:15 08/12/2023 12:02:39 Reg Complete Request 08/12/2023 12:13:48 Reg Bed Request Complete 08/12/2023 12:13:48 08/12/2023 12:13:48 08/12/2023 12:13:48 Discharge Complete 08/12/2023 12:27:02 08/12/2023 12:41:21 08/12/2023 12:41:21 Transfer Complete 08/12/2023 12:41:21 08/12/2023 12:41:21 08/12/2023 12:41:21 ADDRESS: [facility] [id number] PHYS DOC NOTES: MEDICAL INFORMATION: Prescriptions Given: New Medications [id number], [address], [place] [id number], [phone] predniSONE (predniSONE 20 mg Tab) 3 Tablets By Mouth every day for 7 Days. Refills: 0. Medications to Continue with No Changes Other Medications bisoprolol-hydrochlorothia zide (Ziac 5 mg-6.25 mg oral tablet) 1 Tablets By Mouth every day. Refills: 1. ciprofloxacin (Cipro 500 mg Tab) 1 tab po day prior to procedure, 1 tab po following procedure. Refills: 0. estradiol topical (Estrace 0.1 mg/g Cream) insert 1gm vaginally & apply pea sized amount around the urethra nightly x 3 weeks, then 3x per week thereafter. Refills: 5. meloxicam (meloxicam 15 mg oral tablet) 1 Tablets By Mouth every day. minocycline (minocycline 100 mg Cap) 100 Milligram By Mouth every day. Refills: 1. montelukast (Singulair) 10 Milligram By Mouth once a day (in the evening). potassium chloride (potassium chloride 10 mEq ER Tab) 1 Tablets By Mouth 2 times a day. zolpidem (Ambien 10 mg Tab) 1 Tablets By Mouth once a day (at bedtime) as needed Insomnia. Refills: 1. PATIENT EDUCATION INFORMATION: Instructions: Hip Pain Follow up: With: Address: When: Lenora [place] [address] Business (1) In 3 days 08/15/2023 DIAGNOSIS: Hip pain Normal [facility] ED Patient Education Noteon 08-12-2023 ED Patient Education Note Orthopedics Hip Pain The hip is the joint between the upper legs and the lower pelvis. The bones, cartilage, tendons, and muscles of your hip joint support your body and allow you to move around. Hip pain can range from a minor ache to severe pain in one or both of your hips. The pain may be felt on the inside of the hip joint near the groin, or on the outside near the buttocks and upper thigh. You may also have swelling or stiffness in your hip area. Follow these instructions at home: Managing pain, stiffness, and swelling ? If directed, put ice on the painful area. To do this: ? Put ice in a plastic bag. ? Place a towel between your skin and the bag. ? Leave the ice on for 20 minutes, 2?3 times a day. ? If directed, apply heat to the affected area as often as told by your health care provider. Use the heat source that your health care provider recommends, such as a moist heat pack or a heating pad. ? Place a towel between your skin and the heat source. ? Leave the heat on for 20?30 minutes. ? Remove the heat if your skin turns bright red. This is especially important if you are unable to feel pain, heat, or cold. You may have a greater risk of getting burned. Activity ? Do exercises as told by your health care provider. ? Avoid activities that cause pain. General instructions ? Take kcsi-epz-grliobt and prescription medicines only as told by your health care provider. ? Keep a journal of your symptoms. Write down: ? How often you have hip pain. ? The location of your pain. ? What the pain feels like. ? What makes the pain worse. ? Sleep with a pillow between your legs on your most comfortable side. ? Keep all follow-up visits as told by your health care provider. This is important. Contact a health care provider if: ? You cannot put weight on your leg. ? Your pain or swelling continues or gets worse after one week. ? It gets harder to walk. ? You have a fever. Get help right away if: ? You fall. ? You have a sudden increase in pain and swelling in your hip. ? Your hip is red or swollen or very tender to touch. Summary ? Hip pain can range from a minor ache to severe pain in one or both of your hips. ? The pain may be felt on the inside of the hip joint near the groin, or on the outside near the buttocks and upper thigh. ? Avoid activities that cause pain. ? Write down how often you have hip pain, the location of the pain, what makes it worse, and what it feels like. This information is not intended to replace advice given to you by your health care provider. Make sure you discuss any questions you have with your health care provider. Document Revised: 12/07/2019 Document Reviewed: 12/07/2019 [employer] Patient Education ? 2022 [employer] Normal [facility] ED Patient Summaryon 024 ED Patient Summary (Inserted Image. Carrie ble to display) [address] [address] Patient Discharge Instructions Person Information Name: DEJAH DYKES Age: 53 Years Arrival Date: 08/12/2023 11:28:07 Discharge Diagnosis: Hip pain Primary Care Physician: TOM RENEELenora Provider Information Primary Provider: James Richards DO [employer] Internship:Brian Brito PA-C The exam and treatment you received in the Emergency Department were for an urgent problem and are not intended as complete care. It is important that you follow up with a doctor, nurse practitioner, or physician?s autopsy assistant for ongoing care. If your symptoms become worse or you do not improve as expected and you are unable to reach your usual health care provider, you should return to the Emergency Department. We are available 24 hours a day. DEJAH DYKES has been given the following list of patient education materials, prescriptions and follow-up instructions: Follow-up Instructions: With: Address: When: Lenora TOM [address] [place] [address] [facility] ([email or web address] In 3 days 08/15/2023 In the event that this physician does not participate in your insurance network, please consult with your insurance company to find a nearby participating provider. Patient Education Materials: Hip Pain A MESSAGE TO ALL PATIENTS REGARDING OPIOIDS PRESCRIPTION OPIOIDS: WHAT YOU NEED TO KNOW Prescription opioids can be used to help relieve aquxdgky-nc-uskups pain and are often prescribed following a surgery or injury, or for certain health conditions. These medications can be an important part of the treatment but also come with serious risks. It is important to work with your healthcare provider to make sure you are getting the safest, most effective care. WHAT ARE THE RISKS AND SIDE EFFECTS OF OPIOID USE? Prescription opioids carry serious risks of addiction and overdose, especially with prolonged use. An opioid overdose, often marked by slowed breathing, can cause sudden . The use of prescription opioids can have a number of side effects as well, even when taken as directed: ? Tolerance?meaning you might need to take more of the medication for the same pain relief ? Physical dependence?meaning you have symptoms of withdrawal when a medication is stopped ? Increased sensitivity to pain ? Constipation ? Nausea, vomiting, and dry mouth ? Sleepiness and dizziness ? Confusion ? Depression ? Low levels of testosterone that can result in lower sex drive, energy, and strength ? Itching and sweating RISKS ARE GREATER WITH: ? History of drug misuse, substance use disorder, or overdose ? Mental health conditions (such as depression or anxiety) ? Sleep apnea ? Older age (65 years and older) ? Avoid alcohol while taking prescription opioids. Also, unless specifically advised by your health care provider, medications to avoid include: ? Benzodiazepines (such as Xanax or Valium) ? Muscle relaxants (such as Soma or Flexeril) ? Hypnotics (such as Ambien or Lunesta) ? Other prescription opioids KNOW YOUR OPTIONS Talk to your health care provider about ways to manage your pain that don?t involve prescription opioids. Some of these options may actually work better and have fewer risks and side effects. Options may include: ? Pain relievers such as acetaminophen, ibuprofen, and naproxen ? Some medication that are also used for depression or seizures ? Physical therapy and exercise ? Cognitive behavioral therapy, a psychological, goal-directed approach, in which patients learn how to modify physical, behavioral, and emotional triggers of pain and stress. IF YOU ARE PRESCRIBED OPIOIDS FOR PAIN: ? Never take opioids in greater amounts or more often than prescribed. ? Follow up with your primary health care provider. o Work together to create a plan on how to manage your pain. o Talk about ways to help manage your pain that don?t involve prescription opioids. o Talk about any and all concerns and side effects. ? Help prevent misuse and abuse o Never sell or share prescription opioids. o Never use another person?s prescription opioids. ? Store prescription opioids in a secure place and out of reach of others (this may include visitors, children, friends, and family). ? Safely dispose of unused prescription opioids: Find your community drug take-back program or your pharmacy mail-back program, or flush them down the toilet, following guidance from the Food and Drug Administration (www.fda.gov/Drugs/Resourc esForYou). ? Visit www.cdc.gov/drugoverdose to learn about the risks of opioids abuse and overdose. ? If you believe you may be struggling with addiction, tell your health child care nurse and ask for guidance or call SAMHSA?S National Helpline at 9-470-109-HELP. v Source: US Department of Health and Human (more content not included)... Normal [facility] Heart and Vascular Office/Cl inic Noteon 08-11-2023 Heart and Vascular Office/Clinic Note Chief Complaint new pt - est care - htn - rt LE due to PVD History of Present Illness Dejah Dykes is a 53-year-old female who presents today for an evaluation of bilateral lower extremity edema. She is accompanied by an adult male. At the beginning of the year, she underwent a sleep apnea test and was found to be stopping breathing 37 times per hour. Consequently, she was referred to cardiology. She is currently using a CPAP machine, and her sleep has improved. She experienced about a month where she felt like Superman. The sleepiness, fatigue, brain fog, and unfortunately, all of these symptoms overlap. She was also diagnosed with hypothyroidism and Kriss's disease. Due to lower extremity edema and the frequency of her stopped breathing episodes, she saw a concrete spreader. She is nervous because her blood pressure has been elevated. This morning, she checked her blood pressure, and it was 138/76 mmHg. She has undergone 3 ankle surgeries on her right leg and has consistently experienced swelling in that leg. The most recent ankle surgery was in 2012. When she is overly active on her right leg, she is aware of joint swelling. During the summer, she had difficulty fitting into shoes or slippers due to the swelling. Although the swelling has improved, it has not entirely resolved, and she has not tried any remedies for it. She frequently elevates her legs. She is currently experiencing joint issues in her hips, high thighs, knees, and ankles. Her thyroid doctor is uncertain if these joint issues are related to the swelling. Last summer, she weighed 216 pounds, and currently, she weighs 275 pounds. She mentions that she has eliminated fried food from her diet. She has an upcoming appointment with endocrinology at the [facility] scheduled for 09/2023. Review of Systems PHQ Score Initial Depression Screen Score: 0 SCORE Constitutional: no fever, no sweats, no weakness Skin: no rash, no lesions, no bruising/petechiae ENMT: no sore throat, no congestion, no hoarseness Respiratory: no shortness of breath, no cough, no orthopnea, no wheezing Cardiovascular: no chest pain, no palpitations, no edema Gastrointestinal: no nausea, no vomiting, no diarrhea, no GI bleeding Genitourinary: no anuria/oliguria no hematuria Musculoskeletal: no back pain, no trauma Neurologic: no headache, no dizziness, no numbness, no weakness Psychiatric: no sleeping problems, no irritability, no anxiety/depression. Heme/Lymph: no bleeding tendency, no bruising tendency Allergy/Immunologic: no recurrent infections, no impaired immunity Additional ROS info: Except as noted in the above Review of Systems and in the History of Present Illness all other systems have been reviewed and are negative or noncontributory Physical Exam Vitals & Measurements HR: 76(Peripheral) BP: 108/74 SpO2: 100% HT: 64 in HT: 162.5 cm WT: 125 kg WT: 275 lb BMI: 47.34 General: alert, no acute distress Skin: warm, dry intact Head: atraumatic, normocephalic Neck: trachea midline, no JVD, no bruit Eye: normal conjunctiva, sclera clear ENMT: oral mucosa moist Cardiovascular: regular rate and rhythm, no murmur, normal peripheral perfusion Respiratory: lungs CTA, respirations non labored Chest wall: no deformity. Gastrointestinal: soft, non-distended, no tenderness, no guarding. Back: no tenderness, normal ROM, normal alignment. Extremities: no edema, no deformity, no trauma Neurological: oriented x 4, LOC appropriate for age, sensation equal & normal bilaterally, speech normal Psychiatric: cooperative, affect appropriate for age, normal judgement, normal psychiatric thoughts. Assessment/Plan HTN (hypertension) (I10: Essential (primary) hypertension) 1. Bilateral lower extremity edema. I will order an ultrasound of her heart to assess her lower extremity edema. I will also order a venous reflux study. I advised the patient to wear compression stockings and elevate her legs above her heart. I advised the patient to avoid processed meats. Portions of this record may have been created with voice recognition artificial intelligence software, specifically OrthoScan, [employer] and or OrthoScan. Substitutions may have occurred with voice recognition and artificial intelligence software. ATTESTATION: Documentation services were performed after patient or guardian consented to allow [employer] to record this visit. NESTOR medical management specialist and provider reviewed before signing. NESTOR: Emily Jesus Follow-up No qualifying data available Problem List/Past Medical History Ongoing Acne rosacea Class 3 severe obesity with body mass index (BMI) of 40.0 to 44.9 in adult Frequent UTI Influenza vaccination up to date Kidney stones Non-tobacco user Osteochondritis dissecans Urine frequency Historical DVT Kidney stones Procedure/Surgical History Arthroscopy of shoulder (06/22/2020), Arthroscopy of knee (more content not included)... Normal [facility] Comment on above: Result Comment: Elec tronically Signed By: Carlos ARCOS, Forest Jung\.br\Date and Time Signed: 08/11/23 20:37 EST\.br\Electronically Co-Signed By: Emily Jesus\.br\Date and Time Co-Signed: 08/02/23 16:46 EST Insurance Correspondenceon 0 08-08-2023 Insurance Correspondence [id number]#[id number] Normal [facility] Consent for Treatmenton 07-06 Consent for Treatment [id number]#[id number] [facility] Physician Orderon 08-02-2023 Physician Order [id number]#[id number] [facility] CNOVon 06-24-2023 CNOV Office Visit (ENDOCF ) -- DEJAH DYKES ([id number]) 1970 F Date Time Provider Department 06/24/23 2:40 PM ELLY GALICIA ENDOCF During your visit today, we recorded the following information about you: Pulse Blood pressure Weight 78/minute 143/78 119.3 kg Elly Galicia MD 06/24/2023 3:12 PM Signed Endocrinology Clinic Visit Clinical Care Team: -Referring Provider for today's visit: No ref. provider found -Primary Care Provider: Neli Slater MD History of Present Illness: Patient presents with: Follow Up: Thyroid Dejah Dykes is a 52 year old female with arthritis, HTN, SAIMA, nephrolithiasis, acne, obesity class III who presents today for follow up of hypothyroidism. My final recommendations will be communicated back to the PCP by way of a copy of today's office notes. History from 05/2023 visit: Developed significant back and joint issues since Aug 2022, seeing back surgeon Also diagnosed with sleep apnea, now being treated Fatigue also developed over time with these joint pains, her PCP diagnosed with hypothyroidism. Also having significant hair fall, depression, weight gain, brain fog. No preceding illnesses. Significant leg swelling. Had COVID late 2019. On LT4 50mcg daily currently at least a month, maybe more (starting dose). Currently takes first thing in AM, with water, waits 30min at least before eating. Not on MVI or supplements. Not on biotin. No significant changes yet with her symptoms. Daughter was diagnosed with hypothyroidism recently, was told it's Kriss's. Not sure if there may be other family members that are not diagnosed. Exposures to: - Biotin- none - Amiodarone- none - [place]- none - Head/neck radiation- none Interval history: - Passed kidney stone last month - Taking levothyroxine 50mcg daily, timing appropriately-- helping a bit, joints feeling a bit better - Still having hair loss I have reviewed her medical, surgical, family and social history and have updated medication and allergy information in the computerized patient record. ROS: Answers submitted by the patient for this visit: Core Review of Systems (Submitted on 06/24/2023) Fever : No Night sweats: No Recent unintentional weight change: Yes Nasal Congestion: No Hearing Loss: No Vision Disturbance: No A cough: No Difficulty Breathing?: No Chest pain: No Irregular heartbeat: No Leg Swelling: Yes Nausea: No Diarrhea: No Black tarry stools: No Difficulty Urinating?: No Awaken at Night More Than Once to Urinate?: No Joint pain or stiffness: Yes Muscle aches: Yes Leg or Foot Discomfort at Night?: No A rash: No Dizziness: No Headaches: No Memory Loss: No Seizures: No All other systems reviewed and found to be negative except those mentioned in HPI PAST MEDICAL HISTORY Diagnosis Date Acne rosacea 02/01/2023 Acquired hypothyroidism 02/14/2023 Last Assessment AND Plan: Will continue current meds and see in one month Class 3 severe obesity with body mass index (BMI) of 40.0 to 44.9 in adult (HCC) 02/01/2023 Essential hypertension 01/04/2023 Kidney stones 02/01/2023 Neuroma 08/22/2011 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 No pertinent surgical history. Current Outpatient Medications Medication Sig levothyroxine 50 mcg cap Take 50 mcg by mouth daily before breakfast. potassium chloride 20 mEq TbER Take 20 mEq by mouth once daily. bisoprolol-hydroCHLOROthia zide (ZIAC) 5-6.25 mg per tablet Take by mouth. zolpidem (AMBIEN) 10 mg ORAL Tab Take 1 tablet by mouth at bedtime as needed. for insomnia. montelukast (SINGULAIR) 10 mg ORAL tablet Take 1 tablet by mouth daily at bedtime. Minocycline 135 mg ORAL Tb24 Take by mouth. No current facility-administered medications for this visit. History reviewed. No pertinent family history. Social History Tobacco Use Smoking status: Never Substance Use Topics Alcohol use: Yes Comment: 4-5x/year Drug use: No Physical Exam 06/24/23 1430 BP: 143/78 BP Site: Left Arm BP Position: Sitting BP Cuff Size: Large Adult Pulse: 78 SpO2: 100% Weight: 119.3 kg (263 lb) There is no height or weight on file to calculate BMI. Last 3 Encounter Wt Readings: Date: Wt: 04/12/2011 104.8 kg (231 lb) General: She is a well-appearing female in no distress HEENT: atraumatic, sclera clear Neck:supple Lungs: no respiratory distress Cardiac: no visible edema Extremities: no cyanosis or clubbing Neurologic: alert and oriented Skin: no rash Musculoskeletal: normal range of motion Mood is relaxed, affect is appropriate. Procedure / Imaging / Lab Data: Pertinent procedure/alexys (more content not included)... Normal [facility] T4 Free SerPl-mCncon 023 Free T4 [Mass/Vol] 1.0 ng/dL Normal 0.9-1.7 [facility] Comment on above: Order Comment: Speci men Type: BLOOD SPECIMEN Ordering Facility: [facility] Address: [address] [place] [id number] Performed By: #### 3 016-3, 3024-7 #### [facility] CLIA [id number] [address] [place] [address] [place] TSH SerPl-aCncon 06-24-2023 TSH Qn 3.580 m[IU]/L Normal 0.270-4.20 0 [facility] Comment on above: Order Comment: Speci men Type: BLOOD SPECIMEN Ordering Facility: [facility] Address: [address] [place] [address] Performed By: #### 3 016-3, 3024-7 #### [facility] [place] [id number] [address] [place] [address] [place] Referrals Officeon 3 Referrals Office [id number] Normal [facility] Cortis SerPl-mCncon 05-14-20 Cortisol [Mass/Vol] 0.5 ug/dL Low 4.8-19.5 [facility] Comment on above: Order Comment: Speci men Type: BLOOD SPECIMEN Ordering Facility: [facility] Address: [address] [place] [address] Result Comment: Prov ided reference range is from 6-10 AM sample collection time. Cortisol Reference Range: 6-10 AM = 4.8-19.5 ug/dL, 4-8 PM = 2.5-11.9 ug/dL Performed By: #### 3 024-7, 3016-3, 20503-5 #### [facility] [place] [id number] [address] [place] [address] [place] DEXAMETHASONEon 05-14-2023 DEXAMETHASONE 376.1 ng/dL Normal [facility] Comment on above: Order Comment: Speci men Type: BLOOD SPECIMEN Ordering Facility: [facility] Address: [address] [place] [address] Result Comment: INTE RPRETIVE INFORMATION: Dexamethasone, Serum or Plasma by LC-MS/MS Adults baseline: Less than 50 ng/dL 8:00 AM draw following 1 mg dexamethasone between 11:00 pm and 12:00 am the previous evenin - 295 ng/dL 8:00 AM draw following 8 mg dexamethasone (4 x 2 mg doses) between 11:00 pm and 12:00 am the previous evenin - 2850 ng/dL This test was developed and its performance characteristics determined by [facility]. It has not been cleared or approved by the US Food and Drug Administration. This test was performed in a CLIA certified laboratory and is intended for clinical purposes. Performed By: [facility] [address] [place] [id number] Greenhouse Specialist: Nitin Khoury MD, PhD CLIA Number: [id number] Performed By: #### 3 024-7, 3016-3, 33871-2 #### [facility] CLIA [id number] [address] [place] [address] [place] Aldost SerPl-mCncon 05-06-20 23 Aldosterone [Mass/Vol] 7.6 ng/dL Normal 0.0-<35.4 [facility] Comment on above: Order Comment: Pauline giordano Type: BLOOD SPECIMEN Ordering Facility: [facility] Address: [address] [address] Result Comment: The reference interval for serum/plasma aldosterone is based on a normal sodium intake and upright position. High sodium intake may suppress aldosterone and low sodium intake may increase aldosterone. The supine reference interval is <23.7 ng/dL. A ratio of aldosterone in ng/dL to direct renin in pg/mL greater than or equal to 3.8 is a positive screening test result for primary aldosteronism, when aldosterone is greater than or equal to 15 ng/dL. Performed By: #### 3 024-7, 3016-3, 82512-0 #### [facility] CLIA [id number] [address] [place] [address] [place] Basic metabolic 2000 panelon 05-06-2023 Anion gap [Moles/Vol] 11 mmol/L Normal 9-18 [facility] Comment on above: Order Comment: Pauline giordano Type: BLOOD SPECIMEN Ordering Facility: [facility] Address: [address] [place] [address] Performed By: #### 3 024-7, 3016-3, 16142-9 #### [facility] CLIA [id number] [address] [place] [address] [place] Calcium [Mass/Vol] 9.4 mg/dL Normal 8.5-10.2 [facility] Comment on above: Order Comment: Speci men Type: BLOOD SPECIMEN Ordering Facility: [facility] Address: [address] [place] [address] Performed By: #### 3 024-7, 3016-3, 50703-9 #### [facility] CLIA [id number] [address] [place] [address] [place] Chloride [Moles/Vol] 104 mmol/L Normal 97-105 [facility] Comment on above: Order Comment: Speci men Type: BLOOD SPECIMEN Ordering Facility: [facility] Address: [address] [place] [address] Performed By: #### 3 024-7, 6-3, 66454-0 #### [facility] CLIA [id number] [address] [place] [address] [place] CO2 [Moles/Vol] 26 mmol/L Normal 22-30 [facility] Comment on above: Order Comment: Speci men Type: BLOOD SPECIMEN Ordering Facility: [facility] Address: [address] [place] [address] Performed By: #### 3 024-7, 3016-3, 85925-6 #### [facility] CLIA [id number] [address] [place] [address] [place] Creatinine [Mass/Vol] 0.84 mg/dL Normal 0.58-0.96 [facility] Comment on above: Order Comment: Speci men Type: BLOOD SPECIMEN Ordering Facility: [facility] Address: [address] [place] [address] Performed By: #### 3 024-7, 3016-3, 05601-6 #### [facility] CLIA [id number] [address] [place] [address] [place] Creatinine and Glomerular filtration rate.predicted panel (S/P/Bld) 83 mL/min/1.73m??? Normal >=60 [facility] Comment on above: Order Comment: Pauline giordano Type: BLOOD SPECIMEN Ordering Facility: [facility] Address: [address] [place] [address] Result Comment: Brenda mated Glomerular Filtration Rate (eGFR) is calculated using the 2020 CKD-EPI creatinine equation. This equation utilizes serum creatinine, sex, and age as parameters. The creatinine assay has traceable calibration to isotope dilution-mass spectrometry. Refer to KDIGO guidelines for clinical interpretation. In patients with unstable renal function, e.g. those with acute kidney injury, the eGFR may not accurately reflect actual GFR. Performed By: #### 3 024-7, 3016-3, 08974-5 #### [facility] CLIA [id number] [address] [place] [address] [place] Glucose [Mass/Vol] 104 mg/dL High 74-99 [facility] Comment on above: Order Comment: Pauline giordano Type: BLOOD SPECIMEN Ordering Facility: [facility] Address: [address] [place] [address] Result Comment: The [place] [employer] (ADA) provides guidance for cutoff values for fasting glucose and random glucose. The ADA defines fasting as no caloric intake for at least 8 hours. Fasting plasma glucose results between 100 to 125 mg/dL indicate increased risk for diabetes (prediabetes). Fasting plasma glucose results greater than or equal to 126 mg/dL meet the criteria for diagnosis of diabetes. In the absence of unequivocal hyperglycemia, results should be confirmed by repeat testing. In a patient with classic symptoms of hyperglycemia or hyperglycemic crisis, random plasma glucose results greater than or equal to 200 mg/dL meet the criteria for diagnosis of diabetes. Reference: Standards of Medical Care in Diabetes 2016, [place] [employer] Association. Diabetes Care. 2016.39(Suppl 1). Performed By: #### 3 024-7, 3016-3, 60710-6 #### [facility] CLIA [id number] [address] [place] [address] [place] Potassium [Moles/Vol] 3.9 mmol/L Normal 3.7-5.1 [facility] Comment on above: Order Comment: Speci men Type: BLOOD SPECIMEN Ordering Facility: [facility] Address: [address] [place] [address] Performed By: #### 3 024-7, 3016-3, 39670-8 #### [facility] CLIA [id number] [address] [place] [address] [place] Sodium [Moles/Vol] 141 mmol/L Normal 136-144 [facility] Comment on above: Order Comment: Speci men Type: BLOOD SPECIMEN Ordering Facility: [facility] Address: [address] [place] [address] Performed By: #### 3 024-7, 3016-3, 21221-4 #### [facility] CLIA [id number] [address] [place] [address] [place] Urea nitrogen [Mass/Vol] 9 mg/dL Normal 7-21 [facility] Comment on above: Order Comment: Speci men Type: BLOOD SPECIMEN Ordering Facility: [facility] Address: [address] [place] [address] Performed By: #### 3 024-7, 3016-3, 37993-6 #### [facility] CLIA [id number] [address] [place] [address] [place] CNOVon 05-06-2023 CNOV Office Visit (ENDOCF ) -- DEJAH DYKES ([id number]) 1970 F Date Time Provider Department 05/06/23 8:00 AM ELLY GALICIA During your visit today, we recorded the following information about you: Pulse Blood pressure Weight 59/minute 112/58 119.3 kg Elly Galicia MD 05/06/2023 10:10 AM Signed Endocrinology Clinic Visit Clinical Care Team: -Referring Provider for today's visit: No ref. provider found -Primary Care Provider: Neli Slater MD History of Present Illness: Patient presents with: New Patient Evaluation: Thyroid concerns, joint pain Dejah Dykes is a 52 year old female with arthritis, HTN, SAIMA, nephrolithiasis, acne, obesity class III who presents today for evaluation of hypothyroidism. Patient presents as a new consultation from No ref. provider found. My final recommendations will be communicated back to the PCP by way of a copy of today's office notes. Developed significant back and joint issues since Aug 2022, seeing back surgeon Also diagnosed with sleep apnea, now being treated Fatigue also developed over time with these joint pains, her PCP diagnosed with hypothyroidism. Also having significant hair fall, depression, weight gain, brain fog. No preceding illnesses. Significant leg swelling. Had COVID late 2019. On LT4 50mcg daily currently at least a month, maybe more (starting dose). Currently takes first thing in AM, with water, waits 30min at least before eating. Not on MVI or supplements. Not on biotin. No significant changes yet with her symptoms. Daughter was diagnosed with hypothyroidism recently, was told it's Kriss's. Not sure if there may be other family members that are not diagnosed. Exposures to: - Biotin- none - Amiodarone- none - [place]- none - Head/neck radiation- none I have reviewed her medical, surgical, family and social history and have updated medication and allergy information in the computerized patient record. ROS: Answers submitted by the patient for this visit: Endocrine Review of Systems (Submitted on 05/05/2023) Fatigue: Yes Night Sweats: Yes Recent Unintentional Weight Change: Yes- 50# weight gain over past few months, continuing to gain over time. Was previously around 230# and was able to come down to 217# Skin Color Changes: No Post-Nasal Drip: No Thyroid Pain (lower neck): No Trouble Swallowing: No Vision Disturbance: Yes Chest Pain: No Leg Swelling: Yes Blood Clots?: No Leg Pain while walking?: Yes Difficulty Breathing?: Yes Heartburn: No Nausea: No Vomiting?: No Diarrhea: No Constipation: No Abdominal Pain: No Bone Pain?: No Muscle Aches: Yes Muscle Weakness: Yes Joint Pain or Stiffness: Yes Headaches: No Dizziness: Yes Numbness?: Yes Urgency to Urinate?: No Increased Urination?: No Slow or Small Urine Stream?: No Have your menstrual cycles stopped?: Yes Flushing?: Yes Hot Flashes?: Yes Increased Thirst: Yes Change in Body Hair?: Yes Cold Intolerance: Yes Heat Intolerance?: Yes No bruising Some new stretch nieto All other systems reviewed and found to be negative except those mentioned in HPI PAST MEDICAL HISTORY Diagnosis Date Acne rosacea 02/01/2023 Acquired hypothyroidism 02/14/2023 Last Assessment AND Plan: Will continue current meds and see in one month Class 3 severe obesity with body mass index (BMI) of 40.0 to 44.9 in adult (HCC) 02/01/2023 Essential hypertension 01/04/2023 Kidney stones 02/01/2023 Neuroma 08/22/2011 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 No pertinent surgical history. Current Outpatient Medications Medication Sig levothyroxine 50 mcg cap Take 50 mcg by mouth daily before breakfast. bisoprolol-hydroCHLOROthia zide (ZIAC) 5-6.25 mg per tablet Take by mouth. zolpidem (AMBIEN) 10 mg ORAL Tab Take 1 tablet by mouth at bedtime as needed. for insomnia. montelukast (SINGULAIR) 10 mg ORAL tablet Take 1 tablet by mouth daily at bedtime. Minocycline 135 mg ORAL Tb24 Take by mouth. potassium chloride 20 mEq TbER Take 20 mEq by mouth once daily. dexAMETHasone (DECADRON) 1 mg tablet Take 1 tablet by mouth one time only for 1 dose. Take at 11PM the night before AM labs 7-8am No current facility-administered medications for this visit. History reviewed. No pertinent family history. Social History Tobacco Use Smoking status: Never Substance Use Topics Alcohol use: Yes Comment: 4-5x/year Drug use: No Physical Exam 05/06/23 0802 BP: 112/58 BP Site: Left Arm BP Position: Sitting BP Cuff Size: Large Adult Pulse: (!) 59 SpO2: 100% Weight: 119.3 kg (263 lb) There is no height or weight on file t (more content not included)... Normal [facility] DIRECT RENIN PLASMAon 2022 DIRECT RENIN 11.8 pg/mL Normal 3.6-81.6 [facility] Comment on above: Order Comment: Pauline giordano Type: BLOOD SPECIMEN Ordering Facility: [facility] Address: [address] [address] Result Comment: A ra harika of aldosterone in ng/dL to direct renin in pg/mL greater than or equal to 3.8 is a positive screening test result for primary aldosteronism, when aldosterone is greater than or equal to 15 ng/dL. The reference interval for direct renin is based on an upright position. The supine reference intervals are: Age <41 years: 3.2-33.2 pg/mL Age >=41 years: 2.5-45.1 pg/mL Performed By: #### 3 024-7, 3016-3, 15771-6 #### [facility] CLIA [id number] [address] [place] [address] [place] PATIENT UPRIGHT OR SUPINE Upright Normal [facility] Comment on above: Order Comment: Pauline giordano Type: BLOOD SPECIMEN Ordering Facility: [facility] Address: [address] [place] [address] Performed By: #### 3 024-7, 3016-3, 78766-9 #### [facility] CLIA [id number] [facility] [place] [address] [place] T4 Free SerPl-mCncon 023 Free T4 [Mass/Vol] 1.3 ng/dL Normal 0.9-1.7 [facility] Comment on above: Order Comment: Pauline giordano Type: BLOOD SPECIMEN Ordering Facility: [facility] Address: [address] [place] [address] Performed By: #### 3 024-7, 3016-3, 97121-7 #### [facility] CLIA [id number] [address] TSH SerPl-aCncon 05-06-2023 TSH Qn 1.590 m[IU]/L Normal 0.270-4.20 0 [facility] Comment on above: Order Comment: Speci men Type: BLOOD SPECIMEN Ordering Facility: [facility] Address: [address] [place] [address] Performed By: #### 3 024-7, 3016-3, 04398-8 #### [facility] IA [id number] [address] Patient Eval Forms Officeon 04-09-2023 Patient Eval Forms Office [id number]#[id number]:127 Normal [facility] Consent for Treatmenton Consent for Treatment [id number]#[id number]:127 Normal [facility] Sleep Office/Clinic Noteon 0 04-05-2023 Sleep Office/Clinic Note History of Present Illness Here for follow-up for obstructive sleep apnea. The patient reports that she has been doing relatively well with her machine since her last visit and has been on an auto titrating mode with a pressure range of 5 to 20 cm which she uses via a nasal pad mask. She reports no further snoring and reports improvement in her sleep quality, fatigue and daytime sleepiness. Recently she was diagnosed with hypothyroidism and had weight gain of approximately 20 pounds. Review of Systems Constitutional: no fever, no chills, no sweats, no weakness Skin: no Jaundice, no rash, no lesions, no petechiae ENT: no ear pain, no sore throat, no congestion, no hoarseness Respiratory: Denies shortness of breath, cough or wheezing Cardiovascular: no chest pain, no palpitations, no edema Gastrointestinal: no nausea, no vomiting, no diarrhea, no GI bleeding Genitourinary: no dysuria, no hematuria, no discharge, no pain Musculoskeletal: no back pain, no trauma Neurologic: no headache, no dizziness, no numbness, no weakness Psychiatric: no irritability, no mood swings/depression. Heme/Lymph: no bleeding tendency, no bruising tendency, no petechiae, no swollen nodes Allergy/Immunologic: no seasonal allergies, no food allergies, no recurrent infections, no impaired immunity Additional ROS info: Except as noted in the above Review of Systems and in the History of Present Illness all other systems have been reviewed and are negative or noncontributory. Physical Exam General: Awake, alert, in no acute distress Skin: warm, dry Head: no trauma, normocephalic. Prolonged soft palate Neck: Trachea midline, no adenopathy, no tenderness Eye: normal conjunctiva, sclera clear ENMT: TM's clear, oral mucosa moist, no pharyngeal erythema or exudate Cardiovascular: regular rate and rhythm, normal peripheral perfusion Respiratory: Good breath sounds to both lung herrera without wheezing or crackles. Gastrointestinal: soft, non distended, no tenderness, no guarding. Back: No tenderness, Normal ROM, Normal alignment. Extremities: Mild LE edema Neurological: oriented x 4, LOC appropriate for age, CN II-XII intact, motor strength equal & normal bilaterally, sensation equal & normal bilaterally, speech normal Psychiatric: cooperative, affect appropriate for age, normal judgement, normal psychiatric thoughts. Assessment/Plan 1. SAIMA (obstructive sleep apnea) (G47.33: Obstructive sleep apnea (adult) (pediatric)) The patient's sleep study was reviewed and results were discussed with the patient in details. Evidence of severe underlying obstructive sleep apnea with an apnea hypotony index of 35/hour with significant oxygen desaturation noted. The etiology of obstructive sleep apnea and methods of treatment were discussed with the patient in details. Appears to be doing well on current pressures without significant side effects with good tolerance and compliance with CPAP with a significant improvement in the apnea hypopnea index to 1.6/hour with mild leakage based on her most recent download from March 05, 2023 till April 03, 2023 which was reviewed by me today. The patient was advised to clean the machine regularly and change supplies as needed. Avoid driving while sleepy and avoid sedatives and hypnotics such as alcohol. We will continue with same pressure unless new issues develop and see the patient back after 1 year. The patient will call us back in the meantime if any issues. Follow-up With When Contact Information Donald ARCOS, Juan Hodge, [place], [place] Within 1 year [address] [facility] [place] [address]- Additional Instructions: Problem List/Past Medical History Ongoing Acne rosacea Class 3 severe obesity with body mass index (BMI) of 40.0 to 44.9 in adult Frequent UTI Influenza vaccination up to date Kidney stones Non-tobacco user Osteochondritis dissecans Urine frequency Historical DVT Kidney stones Procedure/Surgical History Arthroscopy of shoulder (06/22/2020), Arthroscopy of knee (12/24/2018), Laminectomy (07/22/2017), left extracorporeal shockwave lithotripsy (10/08/2014), cystoscopy, left retrograde ureteropyelogram, and double-J stent insertion (10/05/2014), robotic-assisted hysterectomy with bilateral salpingectomy (04/09/2014), right foot surgery (12/30/2009), Appendectomy, Arthroscopy of shoulder, Bilateral tubal ligation, Cholecystectomy, Ligament repair. Medications Ambien 10 mg Tab, 10 mg= 1 tab(s), Oral, Once a day (at bedtime), PRN, 1 refills Cipro 500 mg Tab, See Instructions Estrace 0.1 mg/g Cream, See Instructions, 5 refills meloxicam 15 mg oral tablet, 15 mg= 1 tab(s), Oral, Daily minocycline 100 mg Cap, 100 mg, Oral, Daily, 1 refills potassium chloride 10 mEq ER Tab, 10 mEq= 1 tab(s), Oral, BID, Not taking Singulair, 10 mg, Oral, qPM Ziac 5 mg-6.25 mg oral tablet, 1 tab(s), Oral, Daily, 1 refills, Not taking Allergies Vicodin (Hallucinations) Social History Alcohol - (more content not included)... Normal [facility] Comment on above: Result Comment: Elec tronically Signed By: Juan Bennett MD\.br\Date and Time Signed: 04/05/23 10:43 EDT Activated partial thrombopla stin time (aPTT) in platelet poor plasma by coagulation aOrdered By: Regino Metcalf on 03-10-2023 aPTT Coag (PPP) [Time] 28.6 s 25.1-36.5 [facility] Alanine aminotransferase [En zymatic activity/volume] in Serum or PlasmaOrdered By: Regino Metcalf on 03-10-2023 ALT [Catalytic activity/Vol] 44 U/L 7-52 [facility] Albumin [Mass/volume] in Ser um or Plasma by Bromocresol green (BCG) dye binding methoOrdered By: Regino Metcalf on 03-10-2023 Albumin BCG dye [Mass/Vol] 4.1 g/dL 3.5-5.7 [facility] Alkaline phosphatase [Enzyma tic activity/volume] in Serum or PlasmaOrdered By: Regino Metcalf on 03-10-2023 ALP [Catalytic activity/Vol] 67 U/L 34-104 [facility] Aspartate aminotransferase [ Enzymatic activity/volume] in Serum or PlasmaOrdered By: Regino Metcalf on 03-10-2023 AST [Catalytic activity/Vol] 41 U/L 13-39 [facility] Basophils Auto (Bld) [#/Vol] Ordered By: Regino Metcalf on 03-10-2023 Basophils (Bld) [#/Vol] 0.1 10*3/uL 0.0-0.2 [facility] Basophils/100 WBC Auto (Bld) Ordered By: Regino Metcalf on 03-10-2023 Basophils/100 WBC (Bld) 1.5 % . [facility] Bilirubin Test strip Ql (U)O rdered By: Regino Metcalf on 03-10-2023 Bilirubin Ql (U) Negative Negative [facility] Bilirubin.direct [Mass/volum e] in Serum or PlasmaOrdered By: Regino Metcalf on 03-10-2023 Bilirubin.direct [Mass/Vol] 0.10 mg/dL 0.03-0.18 [facility] Bilirubin.total [Mass/volume ] in Serum or PlasmaOrdered By: Regino Metcalf on 03-10-2023 Bilirubin [Mass/Vol] 0.5 mg/dL 0.3-1.0 [facility] Calcium [Mass/volume] in Ser um or PlasmaOrdered By: Regino Metcalf on 03-10-2023 Calcium [Mass/Vol] 9.0 mg/dL 8.6-10.3 [facility] Carbon dioxide, total [Moles /volume] in Serum or PlasmaOrdered By: Regino Metcalf on 03-10-2023 CO2 [Moles/Vol] 26.6 mmol/L 21.0-31.0 [facility] Chloride [Moles/volume] in S nusrat or PlasmaOrdered By: Regino Metcalf on 03-10-2023 Chloride [Moles/Vol] 104 mmol/L 98-107 [facility] Color Auto (U)Ordered By: Norris red Tea on 03-10-2023 Color (U) Yellow Yellow [facility] Creatine kinase [Enzymatic a ctivity/volume] in Serum or PlasmaOrdered By: Regino Metcalf on 03-10-2023 CK [Catalytic activity/Vol] 119 U/L 30-223 [facility] Creatinine [Mass/volume] in Serum or PlasmaOrdered By: Regino Metcalf on 03-10-2023 Creatinine [Mass/Vol] 0.86 mg/dL 0.60-1.20 [facility] Eosinophils Auto (Bld) [#/Vo l]Ordered By: Regino Metcalf on 03-10-2023 Eosinophils (Bld) [#/Vol] 0.1 10*3/uL 0.0-0.45 [facility] Eosinophils/100 WBC Auto (Bl d)Ordered By: Regino Metcalf on 03-10-2023 Eosinophils/100 WBC (Bld) 1.5 % . [facility] Erythrocyte distribution wid th Auto (RBC) [Ratio]Ordered By: Regino Metcalf on 03-10-2023 Erythrocyte distribution width (RBC) [Ratio] 13.3 % 11.9-15.3 [facility] Globulin Calc (S) [Mass/Vol] Ordered By: Regino Metcalf on 03-10-2023 Globulin (S) [Mass/Vol] 3.0 g/dL [facility] Glucose [Mass/volume] in Ser um or PlasmaOrdered By: Regino Metcalf on 03-10-2023 Glucose [Mass/Vol] 95 mg/dL 70-100 [facility] Comment on above: ADA recommended refe rence rangeRandom Glucose Reference Range is dependent on time and content of last meal. Glucose of more than 200 mg/dL in a nonstressed, ambulatory subject supports the diagnosis of Diabetes Mellitus. Hematocrit Auto (Bld) [Volum e fraction]Ordered By: Regino Metcalf on 03-10-2023 Hematocrit (Bld) [Volume fraction] 43.2 % 34.0-46.4 [facility] Hemoglobin [Mass/volume] in BloodOrdered By: Regino Metcalf on 03-10-2023 Hemoglobin (Bld) [Mass/Vol] 14.6 g/dL 11.8-15.4 [facility] Ketones Auto test strip (U) [Mass/Vol]Ordered By: Regino Metcalf on 03-10-2023 Ketones (U) [Mass/Vol] Negative Negative Fi [facility] - CoagulationOrde red By: Regino Metcalf on 03-10-2023 PT Coag (PPP) [Time] 11.3 s 9.0-12.9 [facility] Leukocytes [#/volume] correc toya for nucleated erythrocytes in Blood by Automated counOrdered By: Regino Metcalf on 03-10-2023 WBC corrected for nucl RBC Auto (Bld) [#/Vol] 8.9 10*3/uL 3.8-11.6 [facility] Lymphocytes Auto (Bld) [#/Vo l]Ordered By: Regino Metcalf on 03-10-2023 Lymphocytes (Bld) [#/Vol] 3.8 10*3/uL 1.00-4.8 [facility] Lymphocytes/100 WBC Auto (Bl d)Ordered By: Regino Metcalf on 03-10-2023 Lymphocytes/100 WBC (Bld) 42.3 % . [facility] MCH Auto (RBC) [Entitic mass ]Ordered By: Regino Metcalf on 03-10-2023 MCH (RBC) [Entitic mass] 30.5 pg 24.7-34.3 [facility] MCHC Auto (RBC) [Mass/Vol]Or dered By: Regino Metcalf on 03-10-2023 MCHC (RBC) [Mass/Vol] 33.8 g/dL 32.0-35.0 [facility] MCV Auto (RBC) [Entitic vol] Ordered By: Regino Metcalf on 03-10-2023 MCV (RBC) [Entitic vol] 90.2 fL 80-100 [facility] Magnesium [Mass/volume] in S nusrat or PlasmaOrdered By: Regino Metcalf on 03-10-2023 Magnesium [Mass/Vol] 2.1 mg/dL 1.9-2.7 [facility] Monocyte distribution width [Entitic volume] in Blood by AutomatedOrdered By: eRgino Metcalf on 03-10-2023 Monocyte distribution width Auto (Bld) [Entitic vol] 19.08 % 0.00-20.00 [facility] Monocytes Auto (Bld) [#/Vol] Ordered By: Regino Metcalf on 03-10-2023 Monocytes (Bld) [#/Vol] 0.8 10*3/uL 0.0-0.8 [facility] Monocytes/100 WBC Auto (Bld) Ordered By: Regino Metcalf on 03-10-2023 Monocytes/100 WBC (Bld) 8.9 % . [facility] Natriuretic peptide B [Mass/ Vol]Ordered By: Regino Metcalf on 03-10-2023 Natriuretic peptide B (Bld) [Mass/Vol] 28.0 pg/mL 5-100 [facility] Neutrophils Auto (Bld) [#/Vo l]Ordered By: Regino Metcalf on 03-10-2023 Neutrophils (Bld) [#/Vol] 4.1 10*3/uL 1.8-7.7 [facility] Neutrophils/100 WBC Auto (Bl d)Ordered By: Regino Metcalf on 03-10-2023 Neutrophils/100 WBC (Bld) 45.8 % . [facility] Nitrite Test strip Ql (U)Ord ered By: Regino Metcalf on 03-10-2023 Nitrite Ql (U) Negative Negative [facility] No Panel InformationOrdered By: Regino Metcalf on 03-10-2023 D-Dimer Quantitative (PE/DVT) < 200 ng/mL 0-243 [facility] Comment on above: The reference range for D-dimer is <243 ng/mL D-dimer units.D-dimer results must be used in conjunction with a clinicalpretest probability (PTP) assessment model for deep veinthrombosis (DVT) and pulmonary embolism (PE). Results <230ng/mL d-dimer units can be used as a negative predictor inpatients with low or moderate probability for DVT/PE.Results above the exclusion threshold of 230 ng/ml D-dimerunits for DVT/PE may indicate the need for furtherdiagnostic testing.D-Dimer can be increased in hospitalized patients due toco-morbid conditions. Estimated GFR (CKD-EPI) > 60.0 mL/Min [facility] Creatinine Clearance (Chem 95.11 [facility] Nucleated erythrocytes [Pres ence] in Blood by Automated countOrdered By: Regino Metcalf on 03-10-2023 Nucleated RBC Auto Ql (Bld) 0.1 /100{WBC} 0-0.5 [facility] Platelet mean volume Auto (B ld) [Entitic vol]Ordered By: Regino Metcalf on 03-10-2023 Platelet mean volume (Bld) [Entitic vol] 9.2 fL 6.3-10.7 [facility] Platelet poor plasma interna tional normalized ratio (INR) by coagulation assay (relatOrdered By: Regino Metcalf on 03-10-2023 INR Coag (PPP) [Relative time] 1.0 {INR} [facility] Comment on above: INR Therapeutic Rang e A) Pre- and Peroperative OAT started two weeks before surgery. NOT HIP SURGERY: 1.5 - 2.5 HIP SURGERY: 2 - 3B) Primary and secondary prevention of venous THROMBOSIS: 2 - 3C) Active venous thrombosis, pulmonary embolismand prevention of recurrent venous thrombosis: 2 - 3D) Prevention of arterial thromboembolismincluding patients with mechanical heart valves: 3 - 4.5 Platelets Auto (Bld) [#/Vol] Ordered By: Regino Metcalf on 03-10-2023 Platelets (Bld) [#/Vol] 187 10*3/uL 150-450 [facility] Potassium [Moles/volume] in Serum or PlasmaOrdered By: Regino Metcalf on 03-10-2023 Potassium [Moles/Vol] 3.7 mmol/L 3.5-5.1 [facility] Protein Auto test strip (U) [Mass/Vol]Ordered By: Regino Metcalf on 03-10-2023 Protein (U) [Mass/Vol] Negative Negative Fi [facility] Protein [Mass/volume] in Ser um or PlasmaOrdered By: Regino Metcalf on 03-10-2023 Protein [Mass/Vol] 7.1 g/dL 6.4-8.9 [facility] RBC Auto (Bld) [#/Vol]Ordere d By: Regino Metcalf on 03-10-2023 RBC (Bld) [#/Vol] 4.79 10*6/uL 3.60-5.00 [facility] Serum or plasma albumin/glob ulin mass ratioOrdered By: Regino Metcalf on 03-10-2023 Albumin/Globulin [Mass ratio] 1.4 {ratio} [facility] Serum or plasma anion gap de terminationOrdered By: Regino Metcalf on 03-10-2023 Anion gap [Moles/Vol] 15.1 mmol/L 6.0-15.0 [facility] Serum or plasma non-glucuron idated bilirubin measurement (mass/volume)Ordered By: Regino Metcalf on 03-10-2023 Bilirubin.indirect [Mass/Vol] 0.4 mg/dL [facility] Sodium [Moles/volume] in Ser um or PlasmaOrdered By: Regino Metcalf on 03-10-2023 Sodium [Moles/Vol] 142 mmol/L 136-145 [facility] Specific gravity Auto test s trip (U) [Rel density]Ordered By: Regino Metcalf on 03-10-2023 Specific gravity (U) [Rel density] 1.021 1.001-1.03 0 [facility] Thyrotropin [Units/volume] i n Serum or PlasmaOrdered By: Regino Metcalf on 03-10-2023 TSH Qn 2.28 m[IU]/L 0.45-5.33 [facility] Thyroxine (T4) free [Mass/vo lume] in Serum or PlasmaOrdered By: Regino Metcalf on 03-10-2023 Free T4 [Mass/Vol] 0.77 ng/dL 0.61-1.12 [facility] Troponin I.cardiac [Mass/vol ume] in Serum or Plasma by Detection limit <= 0.01 ng/Ordered By: Regino Metcalf on 03-10-2023 Troponin I.cardiac DL <= 0.01 ng/mL [Mass/Vol] 3.2 pg/mL 0.0-15.0 [facility] Urea nitrogen [Mass/volume] in Serum or PlasmaOrdered By: Regino Metcalf on 03-10-2023 Urea nitrogen [Mass/Vol] 14 mg/dL 7-25 [facility] Urine clarity by refractomet ry automatedOrdered By: Regino Metcalf on 03-10-2023 Clarity Refractometry automated (U) Clear Clear [facility] Urine glucose measurement by automated test strip (mass/volume)Ordered By: Regino Metcalf on 03-10-2023 Glucose Auto test strip (U) [Mass/Vol] Normal mg/dL Normal [facility] Urine hemoglobin detection b y automated test stripOrdered By: Regino Metcalf on 03-10-2023 Hemoglobin Auto test strip Ql (U) Negative Negative [facility] Urine leukocyte esterase det ection by automated test stripOrdered By: Regino Metcalf on 03-10-2023 Leukocyte esterase Auto test strip Ql (U) Negative Negative [facility] Urobilinogen Auto test strip (U) [Mass/Vol]Ordered By: Regino Metcalf on 03-10-2023 Urobilinogen (U) [Mass/Vol] Normal mg/dL Normal [facility] WBC Auto (Bld) [#/Vol]Ordere d By: Regino Metcalf on 03-10-2023 WBC (Bld) [#/Vol] 8.9 10*3/uL 3.8-11.6 [facility] pH Auto test strip (U)Ordere d By: Regino Metcalf on 03-10-2023 pH (U) 5.5 [pH] 5.0-9.[address] [facility] [address] Abdomen/Pelvis w/o Contra ston 03-22-2022 CT Abdomen/Pelvis w/o Contrast CLINICAL HISTORY: Flank pain, urinary frequency, and history of urolithiasis. COMPARISON: None available. TECHNIQUE: Multiple contiguous axial images of the abdomen and pelvis were obtained without contrast. Multiplanar reconstructions were acquired at the CT console. All CT scans at this facility use dose modulation, iterative reconstruction, and/or weight based dosing when appropriate to reduce radiation dose to as low as reasonably achievable. FINDINGS: A punctate nonobstructing left upper pole renal calculus is best visualized on the coronal reconstructions. There is no hydronephrosis, or other significant urinary tract calculi, or acute intra-abdominal process identified. Both unenhanced kidneys and the minimally distended urinary bladder appear otherwise unremarkable. The gallbladder has been removed. Mild fatty infiltration of the normal-sized liver is present. Minimal atherosclerotic plaquing of a normal caliber abdominal aorta and branch vessels is present. Has been previous hysterectomy. Postoperative changes from previous lumbosacral fusion/laminectomy with intervertebral disc implants are otherwise unremarkable. The pancreas, spleen, adrenal glands, unopacified bowel loops, and additional members of the pelvis are unremarkable. The visualized lung bases are clear. IMPRESSION: PUNCTATE NONOBSTRUCTING LEFT UPPER POLE RENAL CALCULUS. NO OTHER SIGNIFICANT URINARY TRACT CALCULI OR ACUTE INTRA-ABDOMINAL PROCESS IDENTIFIED. CHRONIC FINDINGS, NOTED. Report reported and signed by Dm Taylor on 03/22/2022 0937 Normal [facility] Comprehensive Metabolic Pane [facility] 12-19-2021 Albumin [Mass/Vol] 4.4 g/dL Normal 3.6-5.1 [facility] Comment on above: Performed By: #### C MP #### [facility] [address] [place], [place] [id number] Albumin/Globulin [Mass ratio] 1.7 {ratio} Normal 1.0-2.5 [facility] Comment on above: Performed By: #### C MP #### [facility] [address] [place], [place] [id number] ALP [Catalytic activity/Vol] 76 U/L Normal 35-119 [facility] Comment on above: Performed By: #### C MP #### [facility] [address], [place] [id number] ALT [Catalytic activity/Vol] 22 U/L Normal 6-33 [facility] Comment on above: Result Comment: 07/05 Female reference range changed. Performed By: #### C MP #### [facility] [address] [place], [place] [id number] Anion gap [Moles/Vol] 16 mmol/L Normal 12-20 [facility] Comment on above: Result Comment: Effe ctive 08/10/2019 reference range changed. Performed By: #### C MP #### [facility] [address], [place] [id number] AST [Catalytic activity/Vol] 25 U/L Normal 9-34 [facility] Comment on above: Performed By: #### C MP #### [facility] [address], [place] [id number] Bilirubin [Mass/Vol] 0.50 mg/dL Normal 0.30-1.20 [facility] Comment on above: Performed By: #### C MP #### [facility] [address] [place], [place] [id number] BUN/CREA 17 Ratio Normal 6-22 [facility] Comment on above: Performed By: #### C MP #### [facility] [address], [place] [id number] Calcium [Mass/Vol] 9.8 mg/dL Normal 8.6-10.2 [facility] Comment on above: Performed By: #### C MP #### [facility] [address], [place] [id number] Chloride [Moles/Vol] 103 mmol/L Normal 98-107 [facility] Comment on above: Performed By: #### C MP #### [facility] [address], [place] [id number] CO2 [Moles/Vol] 26 mmol/L Normal 20-31 [facility] Comment on above: Performed By: #### C MP #### [facility] [address], [place] [id number] Creatinine [Mass/Vol] 0.8 mg/dL Normal 0.6-1.4 [facility] Comment on above: Performed By: #### C MP #### [facility] [address], [place] [id number] eGFRAA 95 mL/min/1.73m2 Normal >60 [facility] Comment on above: Performed By: #### C MP #### [facility] [address], [place] [id number] eGFRNAA 79 mL/min/1.73m2 Normal >60 [facility] Comment on above: Performed By: #### C MP #### [facility] [address], [place] [id number] Globulin (S) [Mass/Vol] 2.6 g/dL Normal 1.9-3.7 N [facility] Comment on above: Performed By: #### C MP #### [facility] [address], [place] [id number] Glucose [Mass/Vol] 128 mg/dL High 65-99 [facility] Comment on above: Result Comment: For FASTING Glucose --- ADA reference ranges: Normal 65-99 mg/dl Prediabetes 100-125 Diabetes >/= 126 Performed By: #### C MP #### [facility] [address], [place] [id number] Potassium [Moles/Vol] 3.3 mmol/L Low 3.5-5.5 [facility] Comment on above: Performed By: #### C MP #### [facility] [address], [place] [id number] Protein [Mass/Vol] 7.0 g/dL Normal 6.1-8.1 [facility] Comment on above: Performed By: #### C MP #### [facility] [address] [place], [place] [id number] Sodium [Moles/Vol] 142 mmol/L Normal 135-146 [facility] Comment on above: Performed By: #### C MP #### [facility] [address] [place], [place] [id number] Urea nitrogen [Mass/Vol] 13 mg/dL Normal 7-25 [facility] Comment on above: Performed By: #### C MP #### [facility] [address], [place] [id number] CHEMISTRYOrdered By: SYSTEM SYSTEM on 12-15-2021 Troponin I.cardiac [Mass/Vol] 2.90 pg/mL Low 10.10 - 27.10 pg/mL [facility] Remisol Albumin [Mass/Vol] 4.2 g/dL Normal 3.3 - 5.0 gm/dL [facility] Remisol Albumin/Globulin [Mass ratio] 1.2 {ratio} Normal 1.1 - 2.2 [facility] ALP [Catalytic activity/Vol] 67 [iU]/d Normal 21 - 98 Int._Unit/ L [facility] ALT No additional P-5'-P [Catalytic activity/Vol] 22 [iU]/d Normal 6 - 46 Int._Unit/ L [facility] Anion gap [Moles/Vol] 15 mmol/L Normal 6 - 16 mEq/L [facility] AST [Catalytic activity/Vol] 26 [iU]/d Normal 5 - 43 Int._Unit/ L [facility] Bilirubin [Mass/Vol] 1.0 mg/dL Normal 0.0 - 1 .1 mg/dL [facility] Bilirubin.direct [Mass/Vol] 0.1 mg/dL Normal 0.1 - 0.4 mg/dL [facility] Bilirubin.indirect [Mass or moles/Vol] 0.9 mg/dL Normal 0.1 - 0.9 mg/dL [facility] Calcium [Mass/Vol] 9.4 mg/dL Normal 8.9 - 11. 1 mg/dL [facility] Chloride [Moles/Vol] 102 mmol/L Normal 101 - 1 11 mmol/L [facility] CO2 [Moles/Vol] 25 mmol/L Normal 21 - 31 mmol/L [facility] Creatinine [Mass/Vol] 0.8 mg/dL Normal 0.5 - 1.3 mg/dL [facility] GFR/1.73 sq M.predicted among blacks MDRD (S/P/Bld) [Vol rate/Area] mL/min/1.73 m2 Normal >=59mL/min /1.73 m2 FT Chem S GFR/1.73 sq M.predicted among non-blacks MDRD (S/P/Bld) [Vol rate/Area] mL/min/1.73 m2 Normal >=59mL/min /1.73 m2 FT Chem S Globulin (S) [Mass/Vol] 3.4 g/dL Normal 1.4 - 4.0 gm/dL [facility] Glucose [Mass/Vol] 107 mg/dL Normal 55 - 199 mg/dL [facility] Magnesium [Mass/Vol] 2.0 mg/dL Normal 1.3 - 2 .4 mg/dL [facility] Potassium [Moles/Vol] 3.0 mmol/L Low 3.5 - 5.3 mmol/L [facility] Protein [Mass/Vol] 7.6 g/dL Normal 6.0 - 7.8 gm/dL [facility] Sodium [Moles/Vol] 139 mmol/L Normal 135 - 145 mmol/L [facility] Troponin I.cardiac [Mass/Vol] 2.80 pg/mL Low 10.10 - 27.10 pg/mL [facility] TSH Qn 2.36 m[IU]/L Normal 0.34 - 5.60 mcIU/mL [facility] Urea nitrogen [Mass/Vol] 11 mg/dL Normal 5 - 21 mg/dL [facility] Urea nitrogen/Creatinine [Mass ratio] 14 mg/mg Normal 10 - 20 [facility] HEMATOLOGYOrdered By: SYSTEM SYSTEM on 12-15-2021 Basophils/100 WBC (Bld) 0.7 % Normal 0.0 - 2.0 % [facility] Basophils/Leukocytes Auto (Bld) [Pure # fraction] 0.1 E9/L Normal 0.0 - 0.2 E9/L [facility] Eosinophils/100 WBC (Bld) 0.5 % Normal 0.0 - 8.0 % [facility] Eosinophils/Leukocytes Auto (Bld) [Pure # fraction] 0.0 E9/L Normal 0.0 - 0.5 E9/L [facility] Lymphocytes/100 WBC (Bld) 24.2 % Normal 14.0 - 50.0 % [facility] Lymphocytes/Leukocytes Auto (Bld) [Pure # fraction] 2.5 E9/L Normal 1.0 - 4.0 E9/L [facility] Monocytes/100 WBC (Bld) 5.2 % Normal 4.0 - 14.0 % [facility] Monocytes/Leukocytes Auto (Bld) [Pure # fraction] 0.5 E9/L Normal 0.2 - 1.0 E9/L [facility] Neutrophils/100 WBC (Bld) 69.4 % Normal 36.0 - 75.0 % [facility] Neutrophils/Leukocytes Auto (Bld) [Pure # fraction] 7.2 E9/L Normal 2.0 - 7.5 E9/L [facility] HEMATOLOGYOrdered By: Leah Dasilva on 12-15-2021 Erythrocyte distribution width (RBC) [Ratio] 13.3 % Normal 10.9 - 14.2 % [facility] Hematocrit (Bld) [Volume fraction] 42.2 % Normal 34.0 - 46.0 % [facility] Hemoglobin (Bld) [Mass/Vol] 15.0 g/dL Normal 12.0 - 16.0 gm/dL [facility] MCH (RBC) [Entitic mass] 31.4 pg Normal 27.0 - 34.0 pg [facility] MCHC (RBC) [Mass/Vol] 35.6 g/dL Normal 31.4 - 36.0 gm/dL [facility] MCV (RBC) [Entitic vol] 88.4 fL Normal 80.0 - 100.0 fL [facility] Platelet mean volume (Bld) [Entitic vol] 8.9 fL Normal 6.4 - 10.8 fL [facility] Platelets (Bld) [#/Vol] 245.0 E9/L Normal 150. 0 - 500.0 E9/L [facility] RBC (Bld) [#/Vol] 4.8 E12/L Normal 4.3 - 5.9 E12/L [facility] WBC corrected for nucl RBC Auto (Bld) [#/Vol] 10.4 E9/L Normal 4.0 - 11.0 E9/L [facility] URINALYSISOrdered By: Raquel Perez on 12-15-2021 Bilirubin Ql (U) Negative (12/15/21 1:50 PM) Normal Negative [facility] UA Auto SS Clarity (U) Clear (12/15/21 1:50 PM) Normal Clear [facility] UA Auto SS Color (U) Yellow (12/15/21 1:50 PM) Normal Yellow [facility] UA Auto SS Epithelial cells.squamous LM.HPF (Urine sed) [#/Area] 3-4 /HPF Normal 0-2/HPF [facility] UA Auto SS Glucose Test strip (U) [Mass/Vol] Negative (12/15/21 1:50 PM) Normal Negative [facility] UA Auto SS Hemoglobin Ql (U) Negative (12/15/21 1:50 PM) Normal Negative [facility] UA Auto SS Ketones (U) [Mass/Vol] Negative (12/15/21 1:50 PM) Normal Negative [facility] UA Auto SS [place].plasma/[place]. RBC (Bld) [Mass ratio] 0-3 /HPF Normal 0-3/HPF [facility] UA Auto SS Nitrite Ql (U) Negative (12/15/21 1:50 PM) Normal Negative [facility] UA Auto SS pH (U) 6.0 *NA* (12/15/21 1:50 PM) Invalid Interpretation Code 5.0 - 9.0 [facility]A Auto SS Protein (U) [Mass/Vol] Negative (12/15/21 1:50 PM) Normal Negative [facility] UA Auto SS Specific gravity (U) [Rel density] 1.020 *NA* (12/15/21 1:50 PM) Invalid Interpretation Code 1.005 - 1.030 [facility]A Auto SS UA Spec Desc Clean Catch (12/15/21 1:50 PM) Normal [facility] UA Auto SS Urobilinogen Qn (U) [id number] {Tana'U}/dL Normal 0.0 - 1.0 EU/dL [facility] UA Auto SS WBC Auto Ql (U) Negative (12/15/21 1:50 PM) Normal Negative [facility] Auto SS WBC LM.HPF (Urine sed) [#/Area] 0-5 /HPF Normal 0-5/HPF [facility] Auto SS XR C-SPINE MIN 4 VIEWSon XR C-SPINE MIN 4 VIEWS Patient: Anabel DYKES Exam Date: 09/11/2019 : 1970 Gender:F Ordering : DR MATTHEW RIVER M.D. Admission #: [id number] Family : Order #: [id number] CLICK HERE TO VIEW EXAM RADIOLOGY REPORT PROCEDURE: RADIOGRAPH C-SPINE MIN 4 VIEWS COMPARISON: None. INDICATIONS: Acute right side cervical pain radiating into right arm without injury, Cervical spondylosis without myelopathy FINDINGS: BONES: Loss of normal cervical lordosis. C7 is poorly visualized on the lateral projection. Minimal facet osteoarthropathy. DISC SPACES: Normal. No significant disc height narrowing, subluxation, or endplate abnormality. PARASPINOUS: Negative. No paraspinous abnormality is seen. OTHER: No transient spondylolisthesis with flexion or extension CONCLUSION: 1. Minimal degenerative changes with loss of normal cervical lordosis Dictated by: Ilana Medeiros M.D. on 09/11/2019 at 11:20 Approved by: Ilana Medeiros M.D. on 09/11/2019 at 11:22 Normal [facility] Vital Signs Date Time Vital Sign Value Performing Clinician Faci hilaryy 03-18-2024 08:17-0400 Diastolic blood pressure 58 mm[Hg] Tamiko Hupu [facility] 03-18-2024 08:17-0400 Heart rate 64 /min Tamiko Hupu [facility] 03-18-2024 08:17-0400 Mean blood pressure 82 mm[Hg] Tamiko Hupu [facility] 03-18-2024 08:17-0400 Systolic blood pressure 130 mm[Hg] Tamiko Hupu [facility] 03-17-2024 09:01-0400 Body height 161.29 cm PA-C Lenora Santos Work Phone: [facility] 03-17-2024 09:01-0400 Body mass index (BMI) [Ratio] 43.1 kg/m2 PA-C Lenora Santos Work Phone: [facility] 03-17-2024 09:01-0400 Body weight 112.12 kg PA-C Lenora Santos Work Phone: [facility] 03-17-2024 09:01-0400 Diastolic blood pressure 73 mm[Hg] PA-C Lenora Santos Work Phone: [facility] 03-17-2024 09:01-0400 Heart rate 60 /min PA-C Lenora Santos Work Phone: [facility] 03-17-2024 09:01-0400 Respiratory rate 18 /min PA-C Lenora Santos Work Phone: [facility] 03-17-2024 09:01-0400 SaO2% (BldA) [Mass fraction] 99 % THELMA Sunorah Tom Work Phone: [facility] 03-17-2024 09:01-0400 Systolic blood pressure 133 mm[Hg] THELMA Sunorah Tom Work Phone: [facility] 03-03-2024 15:00-0400 Heart rate 62 /min Hu Davis [facility] 03-03-2024 15:00-0400 SaO2% (BldA) [Mass fraction] 100 % Hu Davis [facility] 03-03-2024 15:00-0400 Diastolic blood pressure 76 mm[Hg] Hu Davis [facility] 03-03-2024 15:00-0400 Mean blood pressure 97 mm[Hg] Hu Davsi [facility] 03-03-2024 15:00-0400 Systolic blood pressure 141 mm[Hg] Hu Davis [facility] 03-03-2024 14:59-0400 Respiratory rate 16 /min Hu Davis [facility] 03-03-2024 14:52-0400 Diastolic blood pressure 92 mm[Hg] Hu Davis [facility] 03-03-2024 14:52-0400 Heart rate 60 /min Hu Davis [facility] 03-03-2024 14:52-0400 SaO2% (BldA) [Mass fraction] 100 % Hu Davis [facility] 03-03-2024 14:52-0400 Systolic blood pressure 153 mm[Hg] Hu Davis [facility] 03-03-2024 13:53-0400 Heart rate 66 /min Hu Davis [facility] 03-03-2024 13:53-0400 SaO2% (BldA) [Mass fraction] 99 % Hu Davis [facility] 03-03-2024 13:53-0400 Respiratory rate 14 /min Hu Davis [facility] 03-03-2024 13:53-0400 Diastolic blood pressure 84 mm[Hg] Hu Davis [facility] 03-03-2024 13:53-0400 Mean blood pressure 108 mm[Hg] Hu Davis [facility] 03-03-2024 13:53-0400 Systolic blood pressure 158 mm[Hg] Hu Davis [facility] 03-03-2024 13:53-0400 Body temperature 98.24 [degF] Hu Davis [facility] 01-29-2024 08:14-0400 Diastolic blood pressure 73 mm[Hg] Tamikoisabel Robert [facility] 01-29-2024 08:14-0400 Heart rate 66 /min Tamikoisabel Robert [facility] 01-29-2024 08:14-0400 Mean blood pressure 91 mm[Hg] Tamiko Robert [facility] 01-29-2024 08:14-0400 Respiratory rate 14 /min Tamikoisabel Robert [facility] 01-29-2024 08:14-0400 Systolic blood pressure 128 mm[Hg] Tamiko Robert [facility] 12-24-2023 13:08-0400 Body height 161.29 cm THELMA Santos Work Phone: [facility] 12-24-2023 13:08-0400 Body mass index (BMI) [Ratio] 43.8 kg/m2 PA-C Lenora Tom Work Phone: [facility] 12-24-2023 13:08-0400 Body weight 114.02 kg PA-C Lenora Tom Work Phone: [facility] 12-24-2023 13:08-0400 Diastolic blood pressure 71 mm[Hg] PA-C Lenora Tom Work Phone: [facility] 12-24-2023 13:08-0400 Heart rate 62 /min PA-C Lenora Tom Work Phone: [facility] 12-24-2023 13:08-0400 Systolic blood pressure 132 mm[Hg] PA-C Lenora Tom Work Phone: [facility] 12-06-2023 11:40-0400 Diastolic blood pressure 70 mm[Hg] PA-C Lenora Tom Work Phone: [facility] 12-06-2023 11:40-0400 Heart rate 59 /min PA-C Lenora Tom Work Phone: [facility] 12-06-2023 11:40-0400 Respiratory rate 16 /min PA-C Lenora Tom Work Phone: [facility] 12-06-2023 11:40-0400 SaO2% (BldA) [Mass fraction] 99 % PA-C Lenora Tom Work Phone: [facility] 12-06-2023 11:40-0400 Systolic blood pressure 120 mm[Hg] PA-C Lenora Tom Work Phone: [facility] 12-06-2023 09:13-0400 Body height 162.56 cm PA-C Lenora Tom Work Phone: [facility] 12-06-2023 09:13-0400 Body weight 116.57 kg THELMA Santos Work Phone: [facility] 11-11-2023 09:08-0400 Body height 162.6 cm Alfredo Yancey i, MD Work Phone: [facility] 11-11-2023 09:08-0400 Body weight 116 kg Alfredo Yancey i, MD Work Phone: [facility] 11-11-2023 09:08-0400 Diastolic blood pressure 81 mm[Hg] Alfredo Cruz MD Work Phone: [facility] 11-11-2023 09:08-0400 Heart rate 75 /min Alfredo Yancey i, MD Work Phone: [facility] 11-11-2023 09:08-0400 SaO2% (BldA) [Mass fraction] 100 % Alfredo Cruz MD Work Phone: [facility] 11-11-2023 09:08-0400 Systolic blood pressure 138 mm[Hg] Alfredo Cruz MD Work Phone: [facility] 10-30-2023 11:30-0400 Heart rate 60 /min Hu Davis [facility] 10-30-2023 11:30-0400 SaO2% (BldA) [Mass fraction] 100 % Hu Davis [facility] 10-30-2023 11:30-0400 Diastolic blood pressure 83 mm[Hg] Hu Davis [facility] 10-30-2023 11:30-0400 Mean blood pressure 100 mm[Hg] Hu Davis [facility] 10-30-2023 11:30-0400 Systolic blood pressure 134 mm[Hg] Hu Davis [facility] 10-30-2023 11:20-0400 Diastolic blood pressure 81 mm[Hg] Hu Davis [facility] 10-30-2023 11:20-0400 Heart rate 65 /min Hu Davis [facility] 10-30-2023 11:20-0400 SaO2% (BldA) [Mass fraction] 100 % Hu Davis [facility] 10-30-2023 11:20-0400 Systolic blood pressure 164 mm[Hg] Hu Davis [facility] 10-30-2023 10:21-0400 Heart rate 66 /min Hu Davis [facility] 10-30-2023 10:21-0400 SaO2% (BldA) [Mass fraction] 99 % Hu Davis [facility] 10-30-2023 10:21-0400 Body temperature 97.88 [degF] Hu Davis [facility] 10-30-2023 10:20-0400 Diastolic blood pressure 81 mm[Hg] Hu Davis [facility] 10-30-2023 10:20-0400 Mean blood pressure 98 mm[Hg] Hu Davis [facility] 10-30-2023 10:20-0400 Systolic blood pressure 133 mm[Hg] Hu Davis [facility] 10-30-2023 10:18-0400 Respiratory rate 14 /min Hu Davis [facility] 10-18-2023 13:58-0400 Body height 162.56 cm THELMA Santos Work Phone: [facility] 10-18-2023 13:58-0400 Body mass index (BMI) [Ratio] 45.8 kg/m2 THELMA Santos Work Phone: [facility] 10-18-2023 13:58-0400 Body weight 121.1 kg THELMA Santos Work Phone: [facility] 10-17-2023 08:12-0400 Diastolic blood pressure 75 mm[Hg] Hu Davis [facility] 10-17-2023 08:12-0400 Heart rate 75 /min Hu Davis [facility] 10-17-2023 08:12-0400 Mean blood pressure 94 mm[Hg] Hu Davis [facility] 10-17-2023 08:12-0400 Respiratory rate 14 /min Hu Davis [facility] 10-17-2023 08:12-0400 Systolic blood pressure 131 mm[Hg] Hu Davis [facility] 09-28-2023 14:56-0500 Body temperature 98.6 [degF] [facility] 09-28-2023 14:56-0500 Diastolic blood pressure 85 mm[Hg] [facility] 09-28-2023 14:56-0500 Heart rate 107 /min [facility] 09-28-2023 14:56-0500 Respiratory rate 18 /min [facility] 09-28-2023 14:56-0500 SaO2% (BldA) [Mass fraction] 100 % [facility] 09-28-2023 14:56-0500 Systolic blood pressure 138 mm[Hg] [facility] 09-24-2023 13:26-0500 Body height 162.6 cm Alfredo Yancey i, MD Work Phone: [facility] 09-24-2023 13:26-0500 Body weight 115 kg Alfredo Yancey i, MD Work Phone: [facility] 09-24-2023 13:26-0500 Diastolic blood pressure 84 mm[Hg] Alfredo Cruz MD Work Phone: [facility] 09-24-2023 13:26-0500 Heart rate 84 /min Alfredo Yancey i, MD Work Phone: [facility] 09-24-2023 13:26-0500 SaO2% (BldA) [Mass fraction] 99 % Alfredo Cruz MD Work Phone: [facility] 09-24-2023 13:26-0500 Systolic blood pressure 145 mm[Hg] Alfredo Cruz MD Work Phone: [facility] 09-19-2023 10:33-0500 Body height 162.56 cm PA-C Lenora Santos Work Phone: [facility] 09-19-2023 10:07-0500 Body mass index (BMI) [Ratio] 45.8 kg/m2 PA-C Lenora Santos Work Phone: [facility] 09-19-2023 10:07-0500 Body weight 121.1 kg PA-C Lenora Santos Work Phone: [facility] 09-12-2023 13:27-0500 Blood Pressure Location Forest Gonzalez [facility] 09-12-2023 13:27-0500 Diastolic blood pressure 78 mm[Hg] Forest Gonzalez [facility] 09-12-2023 13:27-0500 Heart rate 77 /min Forest Gonzalez [facility] 09-12-2023 13:27-0500 SaO2% (BldA) [Mass fraction] 99 % Forest Gonzalez [facility] 09-12-2023 13:27-0500 Systolic blood pressure 130 mm[Hg] Forest Gonzalez [facility] 08-12-2023 17:05-0500 Body height 162.56 cm PA-C Lenora Tom Work Phone: [facility] 08-12-2023 17:05-0500 Body temperature 98.2 [degF] PA-C Lenora Tom Work Phone: [facility] 08-12-2023 17:05-0500 Body weight 125.19 kg PA-C Lenora Santos Work Phone: [facility] 08-12-2023 17:05-0500 Diastolic blood pressure 94 mm[Hg] PA-C Lenora Tom Work Phone: [facility] 08-12-2023 17:05-0500 Heart rate 70 /min PA-C Lenora Tom Work Phone: [facility] 08-12-2023 17:05-0500 Respiratory rate 21 /min PA-C Lenora Tom Work Phone: [facility] 08-12-2023 17:05-0500 SaO2% (BldA) [Mass fraction] 100 % PA-C Lenora Tom Work Phone: [facility] 08-12-2023 17:05-0500 Systolic blood pressure 184 mm[Hg] PA-C Lenora Santos Work Phone: [facility] 08-02-2023 13:45-0500 Diastolic blood pressure 74 mm[Hg] Forest Gonzalez [facility] 08-02-2023 13:45-0500 Mean blood pressure 85 mm[Hg] Forest Gonzalez [facility] 08-02-2023 13:45-0500 Systolic blood pressure 108 mm[Hg] Forest Gonzalez [facility] 08-02-2023 13:36-0500 Blood Pressure Location Forest Gonzalez [facility] 08-02-2023 13:36-0500 Diastolic blood pressure 101 mm[Hg] Forest Gonzalez [facility] 08-02-2023 13:36-0500 Heart rate 76 /min Forest Gonzalez [facility] 08-02-2023 13:36-0500 SaO2% (BldA) [Mass fraction] 100 % Forest Gonzalez [facility] 08-02-2023 13:36-0500 Systolic blood pressure 170 mm[Hg] Forest Gonzalez [facility] 06-24-2023 14:30-0500 Body weight 119.3 kg Elly Galicia MD Work Phone: [facility] 06-24-2023 14:30-0500 Diastolic blood pressure 78 mm[Hg] Elly Galicia MD Work Phone: [facility] 06-24-2023 14:30-0500 Heart rate 78 /min Elly Galicia MD Work Phone: [facility] 06-24-2023 14:30-0500 SaO2% (BldA) [Mass fraction] 100 % Elly Galicia MD Work Phone: [facility] 06-24-2023 14:30-0500 Systolic blood pressure 143 mm[Hg] Elly Galicia MD Work Phone: [facility] 05-27-2023 10:40-0400 Body height 162.56 cm Lenora Blades Other [employer] Other 05-27-2023 10:40-0400 Body mass index (BMI) [Ratio] 46.17 kg/m2 Lenora Blades Other [employer] Other 05-27-2023 10:40-0400 Body weight 122.02 kg Lenora Blades Other [facility] [employer] Other 03-10-2023 18:05-0400 Diastolic blood pressure 74 mm[Hg] PA-C Lenora Santos Work Phone: [facility] 03-10-2023 18:05-0400 Heart rate 64 /min PA-C Lenora Tom Work Phone: [facility] 03-10-2023 18:05-0400 SaO2% (BldA) [Mass fraction] 100 % PA-C Lenora Santos Work Phone: [facility] 03-10-2023 18:05-0400 Systolic blood pressure 166 mm[Hg] PA-C Lenora Santos Work Phone: [facility] 03-10-2023 16:38-0400 Respiratory rate 18 /min PA-C Lenora Santos Work Phone: [facility] 03-10-2023 14:41-0400 Body height 161.29 cm PA-C Lenora Santos Work Phone: [facility] 03-10-2023 14:41-0400 Body temperature 98.6 [degF] PA-C Lenora Santos Work Phone: [facility] 03-10-2023 14:41-0400 Body weight 120.5 kg PA-C Lenora Santos Work Phone: [facility] 12-15-2021 17:15-0400 Diastolic blood pressure 67 mm[Hg] James Richards [facility] 12-15-2021 17:15-0400 Heart rate 65 /min James Richards [facility] 12-15-2021 17:15-0400 Mean blood pressure 87 mm[Hg] James Richards [facility] 12-15-2021 17:15-0400 Respiratory rate 26 /min James Pastore [facility] 12-15-2021 17:15-0400 SaO2% (BldA) [Mass fraction] 100 % James Pastore [facility] 12-15-2021 17:15-0400 Systolic blood pressure 128 mm[Hg] James Pastore [facility] 12-15-2021 16:00-0400 Diastolic blood pressure 68 mm[Hg] James Pastore [facility] 12-15-2021 16:00-0400 Mean blood pressure 82 mm[Hg] James Pastore [facility] 12-15-2021 16:00-0400 Respiratory rate 11 /min James Pastore [facility] 12-15-2021 16:00-0400 Systolic blood pressure 111 mm[Hg] James Pastore [facility] 12-15-2021 15:00-0400 Respiratory rate 12 /min James Pastore [facility] 12-15-2021 15:00-0400 Systolic blood pressure 126 mm[Hg] James Pastore [facility] 12-15-2021 12:49-0400 gluc 100 mg/dL James Pastore [facility] 12-15-2021 12:49-0400 gluc James Pastore [facility] 12-15-2021 12:45-0400 Body temperature 98.06 [degF] James Pastore [facility] 12-15-2021 12:45-0400 Heart rate 66 /min James Pastore [facility] 12-15-2021 12:45-0400 Respiratory rate 18 /min James Richards [facility] 10-05-2014 15:47-0500 Blood Pressure Location Lenora SANTOS [facility] 10-05-2014 15:47-0500 Blood Pressure Location RAJNI MORA [facility] 10-05-2014 15:47-0500 Body temperature 98.06 [degF] Lenoraliyah SANTOS [facility] 10-05-2014 15:47-0500 BP/Pulse Patient Position Lenora TOM [facility] 10-05-2014 15:47-0500 BP/Pulse Patient Position RAJNI MORA [facility] 10-05-2014 15:47-0500 Diastolic blood pressure 86 mm[Hg] Lenora TOM [facility] 10-05-2014 15:47-0500 Heart rate 72 /min Lenora TOM [facility] 10-05-2014 15:47-0500 Mean blood pressure 105 mm[Hg] Lenora TOM [facility] 10-05-2014 15:47-0500 Respiratory rate 16 /min Lenora TOM [facility] 10-05-2014 15:47-0500 SaO2% (BldA) [Mass fraction] 97 % Lenora TOM [facility] 10-05-2014 15:47-0500 Systolic blood pressure 142 mm[Hg] Lenora TOM [facility] Encounters Encounter Date Encounter Type Care Provider Facility Start: 03-28-2024 End: 03-28-2024 Patient encounter procedure PA-C Lenora Santos Work Phone: [facility] [place] Work Phone: Start: 03-28-2024 End: 03-28-2024 ambulatory PA-C Lenora Santos Work Phone: [facility] Work Phone: Start: 03-24-2024 End: 03-24-2024 ambulatory PA-C Lenora Santos Work Phone: [facility] Work Phone: Start: 03-24-2024 End: 03-24-2024 Patient encounter procedure PA-C Lenora Santos Work Phone: [facility] Work Phone: Start: 03-18-2024 End: 03-18-2024 ambulatory Tamiko Robert Facility:[facility] Start: 03-18-2024 End: 03-18-2024 Pain Management Tamikoisabel Robert [facility] Start: 03-17-2024 End: 03-17-2024 ambulatory PA-C Lenora Santos Work Phone: [facility] Work Phone: Start: 03-17-2024 End: 03-17-2024 Patient encounter procedure PA-C Lenora Santos Work Phone: [facility] Work Phone: Start: 03-06-2024 End: 03-06-2024 Patient encounter procedure PA-C Lenora Santos Work Phone: [facility] [place] Work Phone: Start: 03-06-2024 End: 03-06-2024 ambulatory PA-C Lenora Santos Work Phone: [facility] Work Phone: Start: 03-03-2024 End: 03-03-2024 ambulatory Hu Davis Facility:[facility] Start: 03-03-2024 End: 03-03-2024 Pain Management Hu Davis [facility] Start: 01-29-2024 End: 01-29-2024 ambulatory Tamiko Robert Facility:[facility] Start: 01-29-2024 End: 01-29-2024 Pain Management Tamiko Robert [facility] Start: 12-24-2023 End: 12-24-2023 ambulatory PA-C Lenora Santos Work Phone: [facility] Work Phone: Start: 12-24-2023 End: 12-24-2023 Patient encounter procedure MEHRAN-Regina Santos Work Phone: [facility] Work Phone: Start: 12-06-2023 End: 12-06-2023 Admission to same day surgery center MEHRAN-Regina Santos Work Phone: [facility] [place] Work Phone: Start: 12-06-2023 End: 12-06-2023 ambulatory PA-C Lenora Santos Work Phone: [facility] Work Phone: Start: 12-05-2023 End: 12-05-2023 ambulatory LENORA SANTOS Not Available Start: 11-11-2023 End: 11-11-2023 ambulatory ALFREDO CRUZ Facility:[facility] Start: 11-11-2023 End: 11-11-2023 Patient encounter procedure Alfredo Cruz MD Work Phone: Endocrinology Comment on above: Class 3 severe obesi ty with serious comorbidity and body mass index (BMI) of 40.0 to 44.9 in adult, unspecified obesity type (HCC) (Primary Dx) Start: 11-07-2023 End: 11-07-2023 ambulatory LENORA SANTOS Not Available Start: 10-30-2023 End: 10-30-2023 ambulatory Hu Davis Facility:[facility] Start: 10-30-2023 End: 10-30-2023 Pain Management Hu Davis [facility] Start: 10-24-2023 End: 10-24-2023 Patient encounter procedure PA-C Lenora Santos Work Phone: [facility] [address] Work Phone: Start: 10-24-2023 End: 10-24-2023 ambulatory PA-C Lenora Santos Work Phone: [facility] Work Phone: Start: 10-18-2023 End: 10-18-2023 ambulatory PA-C Lenora Santos Work Phone: [facility] Work Phone: Start: 10-18-2023 End: 10-18-2023 Patient encounter procedure PA-C Lenora Santos Work Phone: [facility] Work Phone: Start: 10-17-2023 End: 10-17-2023 ambulatory DO Hu Davis Facility:[facility] Start: 10-17-2023 End: 10-17-2023 Pain Management Hu Davis [facility] Start: 10-15-2023 End: 10-16-2023 Pre-admission assessment Lenora SANTOS [facility] Start: 10-04-2023 End: 10-04-2023 ambulatory LENORA SANTOS Not Available Start: 09-30-2023 End: 09-30-2023 ambulatory LENORA SANTOS Not Available Start: 09-28-2023 End: 09-28-2023 Emergency department patient visit Cody Young [facility] Start: 09-25-2023 End: 09-25-2023 ambulatory PA-C Lenora Santos Work Phone: [facility] Work Phone: Comment on above: [employer] Start: 09-25-2023 Non-patient / Non-visit PA-C Lenora Santos Work Phone: [facility] Work Phone: Start: 09-25-2023 End: 09-25-2023 Patient encounter procedure PA-C Lenora Santos Work Phone: [facility] Work Phone: Start: 09-24-2023 End: 09-24-2023 ambulatory NELI HAMILTONFIELD Facility:[facility] Start: 09-24-2023 End: 09-24-2023 Patient encounter procedure Alfredo Cruz MD Work Phone: Endocrinology Comment on above: Class 3 severe obesi ty with serious comorbidity and body mass index (BMI) of 40.0 to 44.9 in adult, unspecified obesity type (HCC) Start: 09-20-2023 End: 09-20-2023 ambulatory LENORA SANTOS Not Available Start: 09-19-2023 End: 09-19-2023 ambulatory PA-C Lenora Santos Work Phone: [facility] Work Phone: Start: 09-19-2023 End: 09-19-2023 Patient encounter procedure PA-C Lenora Santos Work Phone: [facility] Work Phone: Start: 09-18-2023 Refill eLnora LAURENT Work Phone: [facility] Comment on above: Primary insomnia Start: 09-12-2023 End: 09-12-2023 ambulatory XXXX NONE Facility:[facility] Start: 09-12-2023 End: 09-12-2023 Patient encounter procedure Forest Gonzalez [facility] Start: 09-09-2023 Chart abstracting Lenora LAURENT Work Phone: [facility] Start: 08-30-2023 End: 08-30-2023 ambulatory Lenora SANTOS Facility:[facility] Start: 08-30-2023 End: 08-30-2023 Patient encounter procedure Lenora SANTOS [facility] Start: 08-15-2023 End: 09-17-2023 Pre-admission assessment Hu Davis [facility] Start: 08-13-2023 End: 08-13-2023 ambulatory LENORA SANTOS Not Available Start: 08-13-2023 End: 08-13-2023 ambulatory Forest Gonzalez Facility:[facility] Start: 08-13-2023 End: 08-13-2023 Patient encounter procedure Forest Gonzalez [facility] Start: 08-12-2023 End: 08-12-2023 Emergency department patient visit THELMA Santos Work Phone: [facility] Work Phone: Start: 08-12-2023 End: 08-12-2023 Emergency department patient visit James Richards Facility:[facility] Start: 08-09-2023 End: 08-09-2023 ambulatory LENORA SANTOS Not Available Start: 08-02-2023 End: 08-02-2023 ambulatory Lenora SANTOS Facility:[facility] Start: 08-02-2023 End: 08-02-2023 Patient encounter procedure Forest Gonzalez [facility] Start: 06-24-2023 End: 06-25-2023 ambulatory NELI SLATER Facility:[facility] Start: 06-24-2023 End: 06-24-2023 Patient encounter procedure Elly Galicia MD Work Phone: Endocrinology Comment on above: Acquired hypothyroid ism (Primary Dx); Class 3 severe obesity with serious comorbidity and body mass index (BMI) of 40.0 to 44.9 in adult, unspecified obesity type (HCC) Start: 06-21-2023 ambulatory Lenora SANTOS Facil ity:[facility] Start: 05-27-2023 End: 05-27-2023 ambulatory Lenora Alvarez Other [facility] [employer] Other Start: 05-27-2023 Office outpatient ne w 45 minutes Lenora Alvarez [facility] Start: 05-14-2023 End: 05-14-2023 ambulatory ELLY AGLICIA Facility:[facility] Start: 05-06-2023 End: 05-07-2023 ambulatory ELLY GALICIA Facility:[facility] Start: 04-05-2023 End: 04-05-2023 ambulatory Juan Bennett Facility:[facility] Start: 04-05-2023 End: 04-05-2023 Patient encounter procedure Juan Bennett [facility] Start: 03-10-2023 End: 03-10-2023 Emergency department patient visit THELMA Santos Work Phone: [facility] Work Phone: Start: 01-16-2023 End: 01-16-2023 Patient encounter procedure Lenora SANTOS [facility] Start: 10-10-2022 End: 10-10-2022 Patient encounter procedure Juan Bennett [facility] Start: 03-29-2022 End: 05-01-2022 Pre-admission assessment Jose L Tatum [facility] Start: 03-28-2022 End: 03-28-2022 Patient encounter procedure RAJNI MORA [facility] Start: 12-15-2021 End: 12-15-2021 Emergency department patient visit James Richards [facility] Start: 12-14-2021 End: 12-14-2021 Patient encounter procedure Lenora SANTOS [facility] Start: 09-11-2019 End: 09-12-2019 Patient encounter procedure MATTHEW Liyah DOS SANTOSO Facility:[facility] Procedures Date Procedure Procedure Detail Performing Clinician Start: 03-03-2024 Epidural injection o f lumbar spine using fluoroscopic guidance Tamiko Hupu Comment on above: 100% relief left, 70 % relief right Start: 12-06-2023 Needle biopsy THELMA Santos Work Phone: Start: 10-30-2023 Injection of nerve r oot of lumbar spine using fluoroscopic guidance Tamiko Hupu Comment on above: right L5-S1 90% reli ef up until 2 weeks ago Start: 10-24-2023 X-ray of right knee PA- C Lenora Santos Work Phone: Start: 09-25-2023 Ultrasound elastogra phy of liver PA-C Lenora Santos Work Phone: Start: 09-25-2023 Ultrasonography of liver PA-C Lenora Santos Work Phone: Start: 03-10-2023 CT of head without contrast PA-C Lenora Santos Work Phone: Start: 03-10-2023 Plain chest X-ray PA-C Lenora Santos Work Phone: Start: 12-14-2021 Mammography Lenora So mmers PA Work Phone: Start: 06-22-2020 Arthroscopy of shoulder Lenora SANTOS Start: 12-24-2018 Arthroscopy of knee Corinne SANTOS Comment on above: right knee Start: 07-22-2017 Laminectomy Lenora SCRUGGS MMREANNA Comment on above: L4-L5 Start: 07-25-2015 Colonoscopy Lenora So mmreanna PA Work Phone: Start: 10-08-2014 left extracorporeal shockwave lithotripsy Lenora SANTOS Start: 10-05-2014 cystoscopy, left retrograde ureteropyelogram, and double-J stent insertion Lenora SANTOS Start: 04-09-2014 robotic-assisted hysterectomy with bilateral salpingectomy Lenora SANTOS Start: 12-30-2009 right foot surgery 3 De kat SANTOS Comment on above: x3 ankle Start: 12-30-2009 right foot surgery 4 Am isabel Hupu Comment on above: x3 ankle Start: 12-30-2009 right foot surgery 5 Am isabel Hupu Comment on above: x3 ankle Appendectomy Lenora SANTOS Comment on above: right ovary removed Arthroscopy of shoulder Sheyla marvin SANTOS Bilateral tubal ligation Corinne SANTOS Cholecystectomy Lenora FORTE Laboratory test resu lt abnormal Abnormal laboratory test THELMA Lenora Santos Work Phone: Repair of ligament Lenora HOFFMAN Comment on above: right foot - mediall y Plan of Treatment Date Care Activity Detail Author Start: 09-24-2026 Diabetes Screening [facility] Start: 05-06-2026 Diabetes Screening [facility] Start: 07-25-2025 Screening for malign ant neoplasm of colon [facility] Start: 12-24-2023 Patient referral [facility] Work Phone: Start: 12-06-2023 [facility] Start: 12-06-2023 CT guided biopsy [facility] Start: 12-06-[address] guided biopsy [facility] Start: 09-25-2023 [facility] Start: 09-25-2023 Actin smooth muscle IgG Ab [Units/volume] in Serum [facility] Start: 09-25-2023 Cefuroxime free [Mass/volume] in Serum or Plasma [facility] Start: 09-25-2023 Ceruloplasmin [Mass/volume] in Serum or Plasma [facility] Start: 09-25-2023 Hepatitis B core ant ibody measurement [facility] Start: 09-25-2023 Hepatitis B virus marshall rface Ab [Presence] in Serum [facility] Start: 09-25-2023 [facility] Start: 09-25-2023 Ultrasonography of liver US liver [facility] Start: 09-25-2023 US Liver [facility] Start: 09-24-2023 End: 12-24-2023 Comprehensive metabolic 2000 panel - Serum or Plasma [facility] Work Phone: Comment on above: Expected: 09/24/2023 , Expires: 12/24/2023 Start: 09-09-2023 End: 09-09-2023 Patient encounter procedure 09/09/2023 8:30 AM EST Office Visit [facility] [address] [place] [id number] Lenora Santos PA [address] [place] [address] [facility] Start: 08-05-2023 Behavioral Health Screening Behavioral Health Screening [facility] Start: 08-05-2023 Depression Assessment Depression Ass [facility] Start: 06-24-2023 End: 09-23-2023 Thyrotropin [Units/volume] in Serum or Plasma [facility] Work Phone: Comment on above: Expected: 06/24/2023 , Expires: 09/23/2023 Start: 06-24-2023 End: 09-23-2023 Thyroxine (T4) free [Mass/volume] in Serum or Plasma [facility] Work Phone: Comment on above: Expected: 06/24/2023 , Expires: 09/23/2023 Start: 04-05-2023 Covid-19 Vaccine ( season) Covid-19 Vaccine () [facility] Start: 12-14-2022 Screening for malign ant neoplasm of breast [facility] Start: 08-05-2022 [facility] Start: 05-01-2022 Urine microalbumin profile DTaP,Tdap,Td Vaccine (2 - Td or Tdap) [facility] Start: 2019 Shingrix Vaccine (1 of 2) Joaquin grix Vaccine (1 of 2) [facility] Start: 2014 Cologuard (FIT-DNA) Cologuard (FIT-D NA) [facility] Start: 2014 Colonoscopy Colonoscopy [facility] Start: 2014 Colorectal Cancer Screening Colorectal Cancer Screening [facility] Start: [address] Colonography [facility] Start: 2014 Fecal Occult Blood Fecal Occult Bloo d [facility] Start: 2014 Lipid 1996 panel - S nusrat or Plasma Lipid Screening [facility] Start: 2014 Lipid panel Lipid Screening [facility] Start: 2014 Screening for malign ant neoplasm of colon [facility] Start: 2014 Sigmoidoscopy Sigmoidoscopy [facility] Start: 2009 Mammography Mammogram Screening [facility] Start: 1999 HPV Testing HPV Testing [facility] Start: 1999 Screening for malign ant neoplasm of cervix [facility] Start: 1990 Pap Testing Pap Testing [facility] Start: 1990 Screening for malign ant neoplasm of cervix [facility] Start: 1988 Hepatitis B Vaccine (1 of 3 - 19+ 3-dose series) Hepatitis B Vaccine (1 of 3 - 19+ 3-dose series) [facility] Start: 1987 Annual PCP Team [employer] gideon Disease Visit Annual PCP Team Chronic Disease Visit [facility] Start: 1987 BP Controlled (<130/80) BP Controlle d (<130/80) [facility] Start: 1987 Hepatitis C Screening Hepatitis C [facility] Start: 1987 Hepatitis C screening Hepatitis C [facility] Start: 1987 HIV Screening HIV Screening [facility] Start: 1987 HIV screening HIV Screening [facility] Start: 1969 Hepatitis B Vaccine (1 of 3 - 3-dose series) Hepatitis B Vaccine (1 of 3 - 3-dose series) [facility] Start: 1969 Screening for malign ant neoplasm of colon [facility] Actin smooth muscle IgG Ab [Units/volume] in Serum [facility] Alpha 1 antitrypsin [Mass/volume] in Serum or Plasma [facility] Alpha 1 antitrypsin [Mass/volume] in Serum or Plasma [facility] Alpha 1 antitrypsin phenotyping [Identifier] in Serum or Plasma by Immunofixation [facility] Cefuroxime free [Mass/volume] in Serum or Plasma [facility] Ceruloplasmin [Mass/volume] in Serum or Plasma [facility] CT guided biopsy [facility] Glucose [Mass/volume ] in Serum or Plasma --2 hours post 75 g glucose PO [facility] Hepatic function panel [facility] Hepatitis B core ant ibody measurement [facility] Hepatitis B virus marshall rface Ab [Presence] in Serum [facility] Hepatitis B virus marshall rface Ag [Presence] in Serum or Plasma by Immunoassay [facility] Hepatitis C virus Ig G Ab [Presence] in Serum or Plasma by Immunoassay [facility] Patient Education [facility] Work Phone: Patient referral [facility] Work Phone: [facility] Immunizations Immunization Date Immunization Notes Care Provider Fa cili 04-30-2023 influenza, injectabl e, quadrivalent, contains preservative Lenora Santos PA Work Phone: [facility] 05-14-2022 influenza, injectabl e, quadrivalent, preservative free Lenora Santos PA Work Phone: [facility] 05-14-2022 Moderna Bivalent Booster Vaccination Lenora LAURENT Work Phone: [facility] 07-05-2021 Moderna SARS-CoV-2 Booster Vaccination Lenora LAURENT Work Phone: [facility] 06-08-2021 influenza, injectabl e, quadrivalent, contains preservative Lenora Santos PA Work Phone: [facility] 11-18-2020 COVID-19, mRNA, LNP- S, PF, 30 mcg/0.3 mL dose; Translations: [Pfizer-BioNTech COVID-19 Vaccine] Lenora SANTOS [facility] Comment on above: Reason for Medicatio n: Prophylaxis 10-21-2020 COVID-19, mRNA, LNP- S, PF, 30 mcg/0.3 mL dose; Translations: [Pfizer-BioNTech COVID-19 Vaccine] Lenora SANTOS [facility] Comment on above: Reason for Medicatio n: Prophylaxis 05-13-2020 influenza, injectabl e, quadrivalent, preservative free Lenora Tom PA Work Phone: [facility] 05-13-2020 Seasonal, quadrivale nt, recombinant, injectable influenza vaccine, preservative free Lenora Tom PA Work Phone: [facility] 04-30-2019 influenza virus vaccine, unspecified formulation Lenora TOM [facility] 04-30-2019 influenza, injectabl e, quadrivalent, preservative free Lenora Tom PA Work Phone: [facility] 05-20-2018 Influenza, injectabl e, Madin Carmen Canine Kidney, preservative free, quadrivalent Lenora Tom PA Work Phone: [facility] 05-05-2018 influenza, injectabl e, quadrivalent, preservative free Lenora Tom PA Work Phone: [facility] 06-07-2017 influenza, injectabl e, quadrivalent, preservative free Lenora Tom PA Work Phone: [facility] 05-29-2016 influenza, injectabl e, quadrivalent, preservative free Lenora Tom PA Work Phone: [facility] 05-26-2015 influenza, seasonal, injectable Lenora Tom PA Work Phone: [facility] 05-01-2012 tetanus toxoid, redu meng diphtheria toxoid, and acellular pertussis vaccine, adsorbed Lenora TOM [facility] Comment on above: Early/Late Reason: N ursing Judgment 07-21-2009 novel [id number], preservative-free, injectable Lenora Tom PA Work Phone: [facility] Healthcare Payers Date Payer Category Payer Unknown MARIS MCDONNELL PPO [id number] 2023-Present [phone] [address] [place] [address] PPO [id number] 2023 Unknown [id number] 2023 Private Health Insurance [id number] 2023 Self-pay [id number] 2022 Private Health Insurance [id number] 2022 Private Health Insurance [id number] 1970 Unknown [id number] 2.16.840.1.443581.3.579.2.5 93 1969 Unknown [id number] 2.16.840.1.919080.3.579.2.1 259 1969 Unknown [id number] 2.16.840.1.886181.3.579.2.1 259 1969 Unknown [id number] 2.16.840.1.342707.3.579.2.1 259 1969 Unknown [id number] 2.16.840.1.410713.3.579.2.1 259 1969 Unknown [id number] 2.16.840.1.915531.3.579.2.1 259 1969 Unknown [id number] 2.16.840.1.966113.3.579.2.1 259 1969 Unknown [id number] 2.16.840.1.215963.3.579.2.1 259 1969 Unknown [id number] 2.16.840.1.928513.3.579.2.7 27 1969 Unknown [id number] 2.16.840.1.253633.3.579.2.7 1969 Unknown [id number] 2.16.840.1.641728.3.579.2.7 1969 Unknown [id number] 2.16.840.1.708837.3.579.2.7 1969 Unknown [id number] 2.16.840.1.482202.3.579.2.7 1969 Unknown [id number] 2.16.840.1.654710.3.579.2.7 1969 Unknown [id number] 2.16.840.1.172602.3.579.2.7 1969 Unknown [id number] 2.16.840.1.177512.3.579.2.7 1969 Unknown [id number] 2.16.840.1.800479.3.579.2.7 1969 Unknown [id number] 2.16.840.1.001936.3.579.2.7 1969 Unknown [id number] 2.16.840.1.286550.3.579.2.7 1969 Unknown [id number] 2.16.840.1.509490.3.579.2.7 1969 Unknown [id number] 2.16.840.1.743378.3.579.2.7 1959 Unknown [id number] Unknown [facility] [id number] Unknown [id number] 2.16.840.1.809149.3.579.2.5 31 Unknown [id number] 2.16.840.1.701558.3.579.2.5 31 Unknown [id number] 2.16.840.1.412711.3.579.2.5 31 Unknown [id number] 2.16.840.1.928851.3.579.2.5 31 Unknown [id number] 2.16.840.1.764674.3.579.2.5 31 Unknown [id number] 2.16.840.1.790908.3.579.2.5 31 Unknown [id number] 2.16.840.1.446254.3.579.2.5 31 Social History Date Type Detail Facility Start: 09-08-2019 End: 03-17-2024 Tobacco smoking status Never smoked tobacco (finding) [facility] Tobacco smoking status Never [facility] Start: 06-24-2023 End: 11-11-2023 Sex Assigned At Female [facility] Start: 1970 Sex Assigned At Female [facility] Start: 06-24-2023 End: 11-11-2023 Alcohol intake Current drinker of alcohol (finding) [facility] Start: 06-24-2023 End: 11-11-2023 History of Social function [facility] Start: 04-12-2011 Alcohol Comment [facility] 1970 [facility] Start: 01-04-2023 Tobacco use and exposure Smokeless tobacco non-user [facility] Start: 08-13-2023 Alcohol intake Lifetime non-d fabricio (finding) [facility] Within the last year , have you been afraid of your partner or ex-partner? No [facility] Are you now , , , , never or living with a partner? [facility] How often to you hav e a drink containing alcohol? Never [facility] How hard is it for y ou to pay for the very basics like food, housing, medical care, and heating Not very hard [facility] Do you feel stress - tense, restless, nervous, or anxious, or unable to sleep at night because your mind is troubled all the time - these days [OSQ] Very much [facility] (I/We) worried wheth er (my/our) food would run out before (I/we) got money to buy more. Never true [facility] Start: 04-30-2023 Alcohol Comment caffeine intak e: 3-4 cups per day [facility] Medical Equipment Procedure Code Equipment Code Equipment Origin al Text Equipment Identifier Dates ALLOGRAFT FUSELO X LUMBAR FDA Start: 07-22-2017 NUVASIVE RELINE SCREW 6.5X50MM FDA Start: 07-22-2017 NUVASIVE RELINE SET SCREW FDA Start: 07-22-2017 NUVASIVE RELINE SET SCREW FDA Start: 07-22-2017 NUVASIVE RELINE SET SCREW FDA Start: 07-22-2017 NUVASIVE RELINE SET SCREW FDA Start: 07-22-2017 RELINE NUVASIVE MAXWELL FDA Start : 07-22-2017 RELINE NUVASIVE MAXWELL FDA Start : 07-22-2017 nuvasive reline screw 6.5X55M FDA Start: 07-22-2017 nuvasive reline screw 6.5X55M FDA Start: 07-22-2017 ALLOGRAFT FUSELO X LUMBAR FDA Start: 07-22-2017 CANCELLOUS 15CC CRUSHED FDA Start: 07-22-2017 CROSSLINK CAPLOX II MED/LG FDA Start: 07-22-2017 EVICEL FIBRIN SEALANT 2ML FDA Start: 07-22-2017 EVICEL FIBRIN SEALANT 2ML FDA Start: 07-22-2017 FIBERGRAFT MEDIU M 6CC MORSELS FDA Start: 07-22-2017 NUVASIVE ONE LEVEL FDA Start: 07-22-2017 NUVASIVE RELINE SCREW 6.5X50MM FDA Start: 07-22-2017 ALLOGRAFT FUSELO X LUMBAR FDA Start: 07-22-2017 NUVASIVE RELINE SCREW 6.5X50MM FDA Start: 07-22-2017 NUVASIVE RELINE SET SCREW FDA Start: 07-22-2017 NUVASIVE RELINE SET SCREW FDA Start: 07-22-2017 NUVASIVE RELINE SET SCREW FDA Start: 07-22-2017 NUVASIVE RELINE SET SCREW FDA Start: 07-22-2017 RELINE NUVASIVE MAXWELL FDA Start : 07-22-2017 RELINE NUVASIVE MAXWELL FDA Start : 07-22-2017 nuvasive reline screw 6.5X55M FDA Start: 07-22-2017 nuvasive reline screw 6.5X55M FDA Start: 07-22-2017 ALLOGRAFT FUSELO X LUMBAR FDA Start: 07-22-2017 CANCELLOUS 15CC CRUSHED FDA Start: 07-22-2017 CROSSLINK CAPLOX II MED/LG FDA Start: 07-22-2017 EVICEL FIBRIN SEALANT 2ML FDA Start: 07-22-2017 EVICEL FIBRIN SEALANT 2ML FDA Start: 07-22-2017 FIBERGRAFT MEDIU M 6CC MORSELS FDA Start: 07-22-2017 NUVASIVE ONE LEVEL FDA Start: 07-22-2017 NUVASIVE RELINE SCREW 6.5X50MM FDA Start: 07-22-2017 ALLOGRAFT FUSELO X LUMBAR FDA Start: 07-22-2017 NUVASIVE RELINE SCREW 6.5X50MM FDA Start: 07-22-2017 NUVASIVE RELINE SET SCREW FDA Start: 07-22-2017 NUVASIVE RELINE SET SCREW FDA Start: 07-22-2017 NUVASIVE RELINE SET SCREW FDA Start: 07-22-2017 NUVASIVE RELINE SET SCREW FDA Start: 07-22-2017 RELINE NUVASIVE MAXWELL FDA Start : 07-22-2017 RELINE NUVASIVE MAXWELL FDA Start : 07-22-2017 nuvasive reline screw 6.5X55M FDA Start: 07-22-2017 nuvasive reline screw 6.5X55M FDA Start: 07-22-2017 ALLOGRAFT FUSELO X LUMBAR FDA Start: 07-22-2017 CANCELLOUS 15CC CRUSHED FDA Start: 07-22-2017 CROSSLINK CAPLOX II MED/LG FDA Start: 07-22-2017 EVICEL FIBRIN SEALANT 2ML FDA Start: 07-22-2017 EVICEL FIBRIN SEALANT 2ML FDA Start: 07-22-2017 FIBERGRAFT MEDIU M 6CC MORSELS FDA Start: 07-22-2017 NUVASIVE ONE LEVEL FDA Start: 07-22-2017 NUVASIVE RELINE SCREW 6.5X50MM FDA Start: 07-22-2017 ALLOGRAFT FUSELO X LUMBAR FDA Start: 07-22-2017 NUVASIVE RELINE SCREW 6.5X50MM FDA Start: 07-22-2017 NUVASIVE RELINE SET SCREW FDA Start: 07-22-2017 NUVASIVE RELINE SET SCREW FDA Start: 07-22-2017 NUVASIVE RELINE SET SCREW FDA Start: 07-22-2017 NUVASIVE RELINE SET SCREW FDA Start: 07-22-2017 RELINE NUVASIVE MAXWELL FDA Start : 07-22-2017 RELINE NUVASIVE MAXWELL FDA Start : 07-22-2017 nuvasive reline screw 6.5X55M FDA Start: 07-22-2017 nuvasive reline screw 6.5X55M FDA Start: 07-22-2017 ALLOGRAFT FUSELO X LUMBAR FDA Start: 07-22-2017 CANCELLOUS 15CC CRUSHED FDA Start: 07-22-2017 CROSSLINK CAPLOX II MED/LG FDA Start: 07-22-2017 EVICEL FIBRIN SEALANT 2ML FDA Start: 07-22-2017 EVICEL FIBRIN SEALANT 2ML FDA Start: 07-22-2017 FIBERGRAFT MEDIU M 6CC MORSELS FDA Start: 07-22-2017 NUVASIVE ONE LEVEL FDA Start: 07-22-2017 NUVASIVE RELINE SCREW 6.5X50MM FDA Start: 07-22-2017 ALLOGRAFT FUSELO X LUMBAR FDA Start: 07-22-2017 NUVASIVE RELINE SCREW 6.5X50MM FDA Start: 07-22-2017 NUVASIVE RELINE SET SCREW FDA Start: 07-22-2017 NUVASIVE RELINE SET SCREW FDA Start: 07-22-2017 NUVASIVE RELINE SET SCREW FDA Start: 07-22-2017 NUVASIVE RELINE SET SCREW FDA Start: 07-22-2017 RELINE NUVASIVE MAXWELL FDA Start : 07-22-2017 RELINE NUVASIVE MAXWELL FDA Start : 07-22-2017 nuvasive reline screw 6.5X55M FDA Start: 07-22-2017 nuvasive reline screw 6.5X55M FDA Start: 07-22-2017 ALLOGRAFT FUSELO X LUMBAR FDA Start: 07-22-2017 CANCELLOUS 15CC CRUSHED FDA Start: 07-22-2017 CROSSLINK CAPLOX II MED/LG FDA Start: 07-22-2017 EVICEL FIBRIN SEALANT 2ML FDA Start: 07-22-2017 EVICEL FIBRIN SEALANT 2ML FDA Start: 07-22-2017 FIBERGRAFT MEDIU M 6CC MORSELS FDA Start: 07-22-2017 NUVASIVE ONE LEVEL FDA Start: 07-22-2017 NUVASIVE RELINE SCREW 6.5X50MM FDA Start: 07-22-2017 ALLOGRAFT FUSELO X LUMBAR FDA Start: 07-22-2017 NUVASIVE RELINE SCREW 6.5X50MM FDA Start: 07-22-2017 NUVASIVE RELINE SET SCREW FDA Start: 07-22-2017 NUVASIVE RELINE SET SCREW FDA Start: 07-22-2017 NUVASIVE RELINE SET SCREW FDA Start: 07-22-2017 NUVASIVE RELINE SET SCREW FDA Start: 07-22-2017 RELINE NUVASIVE MAXWELL FDA Start : 07-22-2017 RELINE NUVASIVE MAXWELL FDA Start : 07-22-2017 nuvasive reline screw 6.5X55M FDA Start: 07-22-2017 nuvasive reline screw 6.5X55M FDA Start: 07-22-2017 ALLOGRAFT FUSELO X LUMBAR FDA Start: 07-22-2017 CANCELLOUS 15CC CRUSHED FDA Start: 07-22-2017 CROSSLINK CAPLOX II MED/LG FDA Start: 07-22-2017 EVICEL FIBRIN SEALANT 2ML FDA Start: 07-22-2017 EVICEL FIBRIN SEALANT 2ML FDA Start: 07-22-2017 FIBERGRAFT MEDIU M 6CC MORSELS FDA Start: 07-22-2017 NUVASIVE ONE LEVEL FDA Start: 07-22-2017 NUVASIVE RELINE SCREW 6.5X50MM FDA Start: 07-22-2017 ALLOGRAFT FUSELO X LUMBAR FDA Start: 07-22-2017 NUVASIVE RELINE SCREW 6.5X50MM FDA Start: 07-22-2017 NUVASIVE RELINE SET SCREW FDA Start: 07-22-2017 NUVASIVE RELINE SET SCREW FDA Start: 07-22-2017 NUVASIVE RELINE SET SCREW FDA Start: 07-22-2017 NUVASIVE RELINE SET SCREW FDA Start: 07-22-2017 RELINE NUVASIVE MAXWELL FDA Start : 07-22-2017 RELINE NUVASIVE MAXWELL FDA Start : 07-22-2017 nuvasive reline screw 6.5X55M FDA Start: 07-22-2017 nuvasive reline screw 6.5X55M FDA Start: 07-22-2017 ALLOGRAFT FUSELO X LUMBAR FDA Start: 07-22-2017 CANCELLOUS 15CC CRUSHED FDA Start: 07-22-2017 CROSSLINK CAPLOX II MED/LG FDA Start: 07-22-2017 EVICEL FIBRIN SEALANT 2ML FDA Start: 07-22-2017 EVICEL FIBRIN SEALANT 2ML FDA Start: 07-22-2017 FIBERGRAFT MEDIU M 6CC MORSELS FDA Start: 07-22-2017 NUVASIVE ONE LEVEL FDA Start: 07-22-2017 NUVASIVE RELINE SCREW 6.5X50MM FDA Start: 07-22-2017 ALLOGRAFT FUSELO X LUMBAR FDA Start: 07-22-2017 NUVASIVE RELINE SCREW 6.5X50MM FDA Start: 07-22-2017 NUVASIVE RELINE SET SCREW FDA Start: 07-22-2017 NUVASIVE RELINE SET SCREW FDA Start: 07-22-2017 NUVASIVE RELINE SET SCREW FDA Start: 07-22-2017 NUVASIVE RELINE SET SCREW FDA Start: 07-22-2017 RELINE NUVASIVE MAXWELL FDA Start : 07-22-2017 RELINE NUVASIVE MAXWELL FDA Start : 07-22-2017 nuvasive reline screw 6.5X55M FDA Start: 07-22-2017 nuvasive reline screw 6.5X55M FDA Start: 07-22-2017 ALLOGRAFT FUSELO X LUMBAR FDA Start: 07-22-2017 CANCELLOUS 15CC CRUSHED FDA Start: 07-22-2017 CROSSLINK CAPLOX II MED/LG FDA Start: 07-22-2017 EVICEL FIBRIN SEALANT 2ML FDA Start: 07-22-2017 EVICEL FIBRIN SEALANT 2ML FDA Start: 07-22-2017 FIBERGRAFT MEDIU M 6CC MORSELS FDA Start: 07-22-2017 NUVASIVE ONE LEVEL FDA Start: 07-22-2017 NUVASIVE RELINE SCREW 6.5X50MM FDA Start: 07-22-2017 ALLOGRAFT FUSELO X LUMBAR FDA Start: 07-22-2017 NUVASIVE RELINE SCREW 6.5X50MM FDA Start: 07-22-2017 NUVASIVE RELINE SET SCREW FDA Start: 07-22-2017 NUVASIVE RELINE SET SCREW FDA Start: 07-22-2017 NUVASIVE RELINE SET SCREW FDA Start: 07-22-2017 NUVASIVE RELINE SET SCREW FDA Start: 07-22-2017 RELINE NUVASIVE MAXWELL FDA Start : 07-22-2017 RELINE NUVASIVE MAXWELL FDA Start : 07-22-2017 nuvasive reline screw 6.5X55M FDA Start: 07-22-2017 nuvasive reline screw 6.5X55M FDA Start: 07-22-2017 ALLOGRAFT FUSELO X LUMBAR FDA Start: 07-22-2017 CANCELLOUS 15CC CRUSHED FDA Start: 07-22-2017 CROSSLINK CAPLOX II MED/LG FDA Start: 07-22-2017 EVICEL FIBRIN SEALANT 2ML FDA Start: 07-22-2017 EVICEL FIBRIN SEALANT 2ML FDA Start: 07-22-2017 FIBERGRAFT MEDIU M 6CC MORSELS FDA Start: 07-22-2017 NUVASIVE ONE LEVEL FDA Start: 07-22-2017 NUVASIVE RELINE SCREW 6.5X50MM FDA Start: 07-22-2017 ALLOGRAFT FUSELO X LUMBAR FDA Start: 07-22-2017 NUVASIVE RELINE SCREW 6.5X50MM FDA Start: 07-22-2017 NUVASIVE RELINE SET SCREW FDA Start: 07-22-2017 NUVASIVE RELINE SET SCREW FDA Start: 07-22-2017 NUVASIVE RELINE SET SCREW FDA Start: 07-22-2017 NUVASIVE RELINE SET SCREW FDA Start: 07-22-2017 RELINE NUVASIVE MAXWELL FDA Start : 07-22-2017 RELINE NUVASIVE MAXWELL FDA Start : 07-22-2017 nuvasive reline screw 6.5X55M FDA Start: 07-22-2017 nuvasive reline screw 6.5X55M FDA Start: 07-22-2017 ALLOGRAFT FUSELO X LUMBAR FDA Start: 07-22-2017 CANCELLOUS 15CC CRUSHED FDA Start: 07-22-2017 CROSSLINK CAPLOX II MED/LG FDA Start: 07-22-2017 EVICEL FIBRIN SEALANT 2ML FDA Start: 07-22-2017 EVICEL FIBRIN SEALANT 2ML FDA Start: 07-22-2017 FIBERGRAFT MEDIU M 6CC MORSELS FDA Start: 07-22-2017 NUVASIVE ONE LEVEL FDA Start: 07-22-2017 NUVASIVE RELINE SCREW 6.5X50MM FDA Start: 07-22-2017 ALLOGRAFT FUSELO X LUMBAR FDA Start: 07-22-2017 NUVASIVE RELINE SCREW 6.5X50MM FDA Start: 07-22-2017 NUVASIVE RELINE SET SCREW FDA Start: 07-22-2017 NUVASIVE RELINE SET SCREW FDA Start: 07-22-2017 NUVASIVE RELINE SET SCREW FDA Start: 07-22-2017 NUVASIVE RELINE SET SCREW FDA Start: 07-22-2017 RELINE NUVASIVE MAXWELL FDA Start : 07-22-2017 RELINE NUVASIVE MAXWELL FDA Start : 07-22-2017 nuvasive reline screw 6.5X55M FDA Start: 07-22-2017 nuvasive reline screw 6.5X55M FDA Start: 07-22-2017 ALLOGRAFT FUSELO X LUMBAR FDA Start: 07-22-2017 CANCELLOUS 15CC CRUSHED FDA Start: 07-22-2017 CROSSLINK CAPLOX II MED/LG FDA Start: 07-22-2017 EVICEL FIBRIN SEALANT 2ML FDA Start: 07-22-2017 EVICEL FIBRIN SEALANT 2ML FDA Start: 07-22-2017 FIBERGRAFT MEDIU M 6CC MORSELS FDA Start: 07-22-2017 NUVASIVE ONE LEVEL FDA Start: 07-22-2017 NUVASIVE RELINE SCREW 6.5X50MM FDA Start: 07-22-2017 ALLOGRAFT FUSELO X LUMBAR FDA Start: 07-22-2017 NUVASIVE RELINE SCREW 6.5X50MM FDA Start: 07-22-2017 NUVASIVE RELINE SET SCREW FDA Start: 07-22-2017 NUVASIVE RELINE SET SCREW FDA Start: 07-22-2017 NUVASIVE RELINE SET SCREW FDA Start: 07-22-2017 NUVASIVE RELINE SET SCREW FDA Start: 07-22-2017 RELINE NUVASIVE MAXWELL FDA Start : 07-22-2017 RELINE NUVASIVE MAXWELL FDA Start : 07-22-2017 nuvasive reline screw 6.5X55M FDA Start: 07-22-2017 nuvasive reline screw 6.5X55M FDA Start: 07-22-2017 ALLOGRAFT FUSELO X LUMBAR FDA Start: 07-22-2017 CANCELLOUS 15CC CRUSHED FDA Start: 07-22-2017 CROSSLINK CAPLOX II MED/LG FDA Start: 07-22-2017 EVICEL FIBRIN SEALANT 2ML FDA Start: 07-22-2017 EVICEL FIBRIN SEALANT 2ML FDA Start: 07-22-2017 FIBERGRAFT MEDIU M 6CC MORSELS FDA Start: 07-22-2017 NUVASIVE ONE LEVEL FDA Start: 07-22-2017 NUVASIVE RELINE SCREW 6.5X50MM FDA Start: 07-22-2017 ALLOGRAFT FUSELO X LUMBAR FDA Start: 07-22-2017 NUVASIVE RELINE SCREW 6.5X50MM FDA Start: 07-22-2017 NUVASIVE RELINE SET SCREW FDA Start: 07-22-2017 NUVASIVE RELINE SET SCREW FDA Start: 07-22-2017 NUVASIVE RELINE SET SCREW FDA Start: 07-22-2017 NUVASIVE RELINE SET SCREW FDA Start: 07-22-2017 RELINE NUVASIVE MAXWELL FDA Start : 07-22-2017 RELINE NUVASIVE MAXWELL FDA Start : 07-22-2017 nuvasive reline screw 6.5X55M FDA Start: 07-22-2017 nuvasive reline screw 6.5X55M FDA Start: 07-22-2017 ALLOGRAFT FUSELO X LUMBAR FDA Start: 07-22-2017 CANCELLOUS 15CC CRUSHED FDA Start: 07-22-2017 CROSSLINK CAPLOX II MED/LG FDA Start: 07-22-2017 EVICEL FIBRIN SEALANT 2ML FDA Start: 07-22-2017 EVICEL FIBRIN SEALANT 2ML FDA Start: 07-22-2017 FIBERGRAFT MEDIU M 6CC MORSELS FDA Start: 07-22-2017 NUVASIVE ONE LEVEL FDA Start: 07-22-2017 NUVASIVE RELINE SCREW 6.5X50MM FDA Start: 07-22-2017 Goals Date Patient Goal Desired Activity /State Functional Status Date Assessment Result Facility 03-18-2024 Functional Status N/A [facility] 03-06-2024 Fibrosis score Enhanced Liver Fibrosis Score 10.94 [facility] Comment on above: ELF(TM) Score Interp retation:Risk cut-offs to assess the likelihood of progressionto cirrhosis and liver-related clinical events within3.9 years following baseline ELF score (IQR: 14.0-22.4months)*: Lower risk < 9.80 Mid risk 9.80 - 11.29 Higher risk >11.29Note: The ELF(TM) Score is a unitless numerical value.*Alexy SA, Alexandro VW, Duong T, et al. Selonsertibfor patients with bridging fibrosis or compensatedcirrhosis due to MANRIQUEZ: Results from randomized phaseIII STELLAR trials. J Hepatol. 2020 Feb;73(1):26-39.Performed at: [address] [id number] Director: Leyla Britt MD, Phone: [phone] 01-29-2024 Functional Status N/A [facility] 10-30-2023 Functional Status N/A [facility] 10-17-2023 Functional Status N/A [facility] 09-28-2023 Functional Status N/A [facility] 09-12-2023 Functional Status No [facility] 08-02-2023 Functional Status No [facility] 03-28-2022 Functional Status N/A [facility] Clinical Notes 12-15-2021 to 03-18-2024 Note Date & Type Note Facility 03-18-2024 Evaluation + Plan note Extrac toya from: Title:Pain Managment Follow up Author:Tamiko Rollins Date:03/18/24 Impression and Plan Patient is a 53-year-old female with past medical history significant for postlaminectomy syndrome, lumbar neuritis, lumbar spondylosis and sacroiliitis. At this time, she is doing well from her recent bilateral L5-S1 transforaminal epidural steroid injection. She has obtained 1% relief on the left and 70% relief on the right. She is getting ready to have right ankle surgery in 3 weeks. She would like to pursue this first and foremost. We discussed the possibility of future facet treatments but at this time, she wants to get her ankle taken care of first and I feel this is appropriate. She is to follow-up in 4 months so she can have surgery and then have recovery time. She will call us in the interim should she require anything from our services. DIMPLE score: 40%. [facility] 08-14-2024 NoteConsultation Note Patient: DEJAH DYKES Age: 53 years Sex: Female : 1970 Associated Diagnoses: None Author: Tamiko Robert PA-C Subjective Chief complaint 03/18/2024 8:17 EDT Back Pain . Patient is a 53-year-old female. She presents today for follow-up after undergoing bilateral L5-S1 transforaminal epidural steroid injection. This was done on 03/03/2024. Has given her 100% relief on the left side but only 70% relief on the right. She does have a known right ankle issue and is having right ankle surgery on 04/13/2024. She has some lower back pain with some buttock pain and right ankle pain but at this time, the lower back pain is her rate limiting factor. She rates it a 3/10. She states that it is tolerable and at this time she would like to just pursue her right ankle surgery and see how she does first and foremost. Should be noted that she is on therapy in the past that has not helped. She has had surgery in the past on her back. This did give her improvement. Health Status Allergies: Allergic Reactions (Selected) Severity Not Documented Bactrim- Hives. Vicodin- Hallucinations., Allergies (2) Active Severity Reaction Vicodin Hallucinations Bactrim Hives Current medications: (Selected) Prescriptions Prescribed Ambien 10 mg Tab: 10 mg = 1 tab(s), Oral, Once a day (at bedtime), PRN Insomnia, # 30 tab(s), Refills(s) 1, [id number], 161, cm, 09/08/19 14:29:00 EST, Height/Length Measured, 110.5, kg, 09/08/19 14:29:00 EST, Weight Measured Estrace 0.1 mg/g Cream: See Instructions, 42.5 gm, Refill(s) 5, insert 1gm vaginally & apply pea sized amount around the urethra nightly x 3 weeks, then 3x per week thereafter, [id number], 162.5, cm, 04/24/22 15:43:00 EDT, Height/Length Dosing, 105, kg, 03/28/22 9:0... Ziac 5 mg-6.25 mg oral tablet: 1 tab(s), Oral, Daily, 90 tab(s), Refill(s) 1, [facility]/pharm[facility][id number] minocycline 100 mg Cap: 100 mg, Oral, Daily, # 100 cap(s), Refills(s) 1, Pharmacy: [facility][id number] Documented Medications Documented Rezdiffra 100 mg oral tablet: 100 mg = 1 tab(s), Oral, Daily, Refills(s) 0 Singulair: 10 mg, Oral, qPM, Refills(s) 0, Allergy symptoms levothyroxine 50 mcg (0.05 mg) Tab: Refills(s) 0 metformin: 500 mg, Oral, QID, Refills(s) 0 potassium chloride 10 mEq ER Tab: 10 mEq = 1 tab(s), Oral, BID, Prophylaxis Problem list: All Problems Lumbar disc herniation / SNOMED CT 848522798 / Confirmed L4-5 fusion Allergic rhinitis, seasonal / SNOMED CT 243767750 / Confirmed H/O: HTN (hypertension) / SNOMED CT 010975998 / Confirmed Depression / SNOMED CT 787681752 / Confirmed Fatty liver / SNOMED CT 510430672 / Confirmed Acne rosacea / SNOMED CT 2843491785 / Confirmed Osteochondritis dissecans / SNOMED CT 914306622 / Confirmed Class 3 severe obesity with body mass index (BMI) of 40.0 to 44.9 in adult / SNOMED CT 0422755687 /Confirmed Non-tobacco user / SNOMED CT 359760569 / Confirmed Influenza vaccination up to date / SNOMED CT 622252022 / Confirmed Urine frequency / SNOMED CT 735049852 / Confirmed Kidney stones / SNOMED CT 463146398 / Confirmed Frequent UTI / SNOMED CT 031668731 / Confirmed Resolved: DVT / SNOMED CT 292758321 Resolved: Kidney stones / SNOMED CT [id number] Objective Vital Signs 03/18/2024 8:17 EDT Peripheral Pulse Rate 64 bpm Systolic Blood Pressure 130 mmHg Diastolic Blood Pressure 58 mmHg LOW Mean Arterial Pressure, Cuff 82 mmHg General: Alert and oriented, No acute distress. Eye: Normal conjunctiva. HENT: Normocephalic, Normal hearing. Cardiovascular: No edema. Musculoskeletal Normal range of motion. Normal strength. Pain with compression of the right sided lumbar facet joints Increased right-sided lower back pain with facet loading Some pain with internal rotation of the right hip No limited range of motion Integumentary: Warm, Dry, [place]. Neurologic: Alert, Oriented. Psychiatric: Cooperative, Appropriate mood & affect. 14 point review of systems was negative unless otherwise noted. Results Review * Final Report * Reason For Exam M54.31, M54.16 POWERSCRIBE REPORT IMPRESSION: POSTSURGICAL AND DEGENERATIVE CHANGES OF THE LUMBAR SPINE DETAILED. EXAM: MRI of the lumbar spine without contrast History: Low back pain and right hip pain Technique: Multiplanar multisequence MRI of the lumbar spine was obtained without intravenous contrast. Comparison: MRI of the lumbar spine 01/18/2017 Findings: The conus medullaris ends normally. The alignment of the lumbar spine is anatomic. The vertebral body heights are well maintained. There is no aggressive bone marrow signal abnormality. Postsurgical changes of posterior lumbar spine fusion and posterior decompression at L5-S1 with associated susceptibility artifact. Intervertebral disc spacer is present at L5-S1. Intervertebral disc heights are maintained. Intraosseous hemangio (more content not included)...[facility]:Result Comment: Electronically Signed By: Yesica RENEE, Tamiko\.br\Date and Time Signed: 03/18/24 08:39 [id number] Evaluation note* Author [facility] Authored March 17, 2024 10 :13am Assessment: Highest weight: 275 lbs Start weight: 247.3 lbs. Starting Date: 03/17/24. 1. Abnormal weight gain. She has a strong family history of obesity and 2 aunts on her mom side of the family, both her maternal grandparents and her brother. 2. Obesity-she would like to start a GLP-1 for weight management. Her insurance does not cover GLP-1 medications. She feels she could afford compounded semaglutide. She has no contraindications. She will not start the medication until after her surgery April 13. She was sent here by her liver specialist due to MASH S3/F3/F4 FibroScan and biopsy- proven steatosis with bridging fibrosis. She is now on the thyroid receptor agonist for this condition. Her obvious issue is that she drinks 3 to 4 16 ounce regular Pepsi's daily. She is willing to give them up cold turkey. She otherwise tries to eat in a healthy fashion although she notes not the best eater . She does have cravings for occasional ice cream and other snacks. She notes she gave up most fried food about 5 or 6 years ago. She does not feel that she is a big snacker. Most of her extra calories seem to come from Pepsi. She had tried Adipex in the past. Her works construction. She does have a pool at home and will try to do some pool related exercise/activity. She will unfortunately be having to have ankle surgery April 13. I offered her our water aerobics recommendations after her surgery is completed. She denies significant known arthritis of her knees or hips. The patient has a number of weight related health issues insulin resistance/pre-diabetes with recent A1c of 6.2, chronic low back pain that limits activity, hypertension,liver disease-fatty liver, obstruction sleep apnea requiring CPAP. Behavioral: The patient's previous eating habits prior to starting our program good. Before starting the program the biggest reasons for weight struggles include family weight issues, health issues. Exercise before starting the program: no.The patient will treat with long-term lifestyle changes of improved nutrition, increased exercise and activity, stress reduction, adequate sleep and behavioral modification versus short-term dieting. The patient has no contraindications to semaglutide. The patient does not feel that she can afford the branded version and not covered by insurance. She would like to try compounded semaglutide. The patient will begin compounded semaglutide to help with both glycemic control and satiety. The risks, benefits and side effects were discussed; including but not limited to the risk of nausea, vomiting, increased heartburn, abdominal discomfort, constipation diarrhea and risk of hypoglycemia. The patient was also counseled on the slight increase risk of acute pancreatitis and symptomatic choledocholithiasis. The patient denies any previous history of pancreatitis, gallbladder disease or personal or family history of medullary thyroid cancer or MEN syndrome. -Begin 0.3 mg weekly after her surgery April 13. The patient will stop compounded semaglutide any significant nausea, vomiting, abdominal pain or other side effects. 3. Prediabetes with recent A1c of 6.1-jahfh-nhal treatment with long-term healthy lifestyle change, decreased simple sweets and refined starches, increased exercise and activity and long-term weight loss. Continue metformin. Recommend GLP-1 agonist. Needs close long-term follow- up for this condition to prevent diabetes. She denies a family history of diabetes. 4. Hypertension-treat with a low-salt diet, decreased processed and restaurant foods, healthy lifestyle changes and achieve long-term weight loss. Monitor outside the office. 5. Chronic low back pain-had improved with a fusion in 2017 but now she is having pain at adjoining vertebra. Currently working with pain management. Treat also with healthy exercise and weight loss. 6. Obstructive sleep apnea-requiring CPAP. Treat with good sleep hygiene and weight loss also. 7. EBTW-ugayyl-fcbszc. Sent here by GI. 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 9. Kidney stones-will try to avoid Topamax. Increase water intake. Stop Pepsi. Follow up with me in 6 weeks. New labs needed: Up-to-date except for going to do a 2-hour glucose tolerance test off metformin. The patient was instructed to consider logging all foods and caloric beverages. I highly recommended minimizing or stopping caloric beverages including alcohol. The importance of preplanning, shopping at the edge of the store, decreasing unhealthy food cues and environmental control stressed. I recommend packing snacks and meals when out of the home. Remove trigger/unhealthy foods if possible from the home. No macronutrient is completely restricted. We discussed the addictive nature and unhealthy biological changes that occur with ultra processed food. We discussed the brain and peripheral biological changes with obesity that make it a chronic disease. Importance of cooking most food items from scratch discussed. No skipping any meals. Avoid added sugar, refined starches, and added fats. I highly recommended preference for whole foods/real foods. Foods from the farm, not from the factory. The plate method discussed and handout given. Lean unprocessed protein with each meal and each snack to help control appetite, decrease cravings and lessen muscle loss with weight loss advised. Consider use of a protein shake or protein bar instead of missing a meal. The patient will try to get at least 5 or more servings of low carbohydrate veggies/salads daily. Recommend regular follow-up with our registered dietitian. Benefits of regular exercise including cardio and resistance training discussed and recommended as appropriate for the patient. Slowly increase activity. Our exercise program was recommended with our marine resource economist/obesity exercise group. Handout given. Our free weekly group support/food triggers program was highly recommended to help with long-term behavioral change and support. Handout given. The patient must start healthy behavioral changes. The patient was instructed on good sleep hygiene and on the importance of adequate sleep. Circadian rhythm and the importance of mealtime discussed. I recommended stress reduction. Medication addition and subtraction options discussed. Risks and benefits of prescribed meds discussed. Initial mzzl-qt-qwwc interview/evaluation. The patient was counseled in detail on the options for weight loss in an individual setting. 69 minutes was spent caring for the patient, counseling/educating patient on the options for the treatment of obesity and related healthcare issues. The program's treatment goals were reviewed with the patient. Each aspect of the program was discussed with the patient. [facility] Work Phone: 1(761) 369-490507-30-2024 NoteOperative Report Diagnosis: M54.16, lumbar radiculopathy Procedure: Bilateral L5/S1 lumbar transforaminal epidural steroid injections under fluoroscopic guidance Anesthesia: Local Complications: none After informed consent was obtained, the patient was brought to the procedure suite placed in the prone position. Pulse oximetry and blood pressure were monitored throughout. The low back area is prepped and draped in usual sterile fashion. Using fluoroscopic guidance, skin and subcutaneous tissue overlying the medial trajectory of the neuroforamina were anesthetized with 2% lidocaine. A 22-gaugeSprotte needles were then advanced under fluoroscopic guidance to the appropriate foramina. Needle tip positions were confirmed under at least 2 fluoroscopic views. Injection of contrast revealed appropriate spread of the dye without vascular uptake. Next, at each site, 1.5 mL of 1.0% lidocaine with 5 mg of dexamethasone was injected through each needle tip. The needles were then removed and the patient was then transferred to the recovery room in stable condition. The pain tolerated the procedure well. There were no apparent complications. Follow-up: The patient will update us on the response to this procedure, and agrees to comply to currently prescribed/recommended therapies.[facility] Comment on above:Result Comment: Electronically Signed By: Hu Davis DO\.br\Date and Time Signed: 03/03/24 14:58 [id number] Evaluation + Plan note Extracted from: Title:Bilateral L5/S1 transf oraminal epidural steroid injection Author:Hu Davis DO Date:03/03/24 Diagnosis: M54.16, lumbar ra diculopathy Procedure: Bilateral L5/S1 lumbar transforaminal epidural steroid injections under fluoroscopic guidance Anesthesia: Local Complications: none After informed consent was obtained, the patient was brought to the procedure suite placed in the prone position. Pulse oximetry and blood pressure were monitored throughout. The low back area is prepped and draped in usual sterile fashion. Using fluoroscopic guidance, skin and subcutaneous tissue overlying the medial trajectory of the neuroforamina were anesthetized with 2% lidocaine. A 22-gauge Sprotte needles were then advanced under fluoroscopic guidance to the appropriate foramina. Needle tip positions were confirmed under at least 2 fluoroscopic views. Injection of contrast revealed appropriate spread of the dye without vascular uptake. Next, at each site, 1.5 mL of 1.0% lidocaine with 5 mg of dexamethasone was injected through each needle tip. The needles were then removed and the patient was then transferred to the recovery room in stable condition. The pain tolerated the procedure well. There were no apparent complications. Follow-up: The patient will update us on the response to this procedure, and agrees to comply to currently prescribed/recommended therapies. Future Appointments Appointment Date:03/18/2024 08:15:00 AM Scheduled Provider:Tamiko Robert PA-C Location:FT.Pain Mgmt [place] Appointment Type:Pain Management - Follow Up (FT) [facility] [id number] Evaluation + Plan noteExtracted from: Title:Pain Managment Follow up Author:Tamiko Rollins Date:01/29/24 Impression and Plan Patient is a 53-year-old female with a past medical history significant postlaminectomy syndrome and lumbosacral neuritis. Patient underwent previous right-sided L5-S1 transforaminal epidural steroid injection with significant relief. She had 80% relief for about 10 weeks followed by a continued 50% relief but at this time she is noticing pain is starting to return. Right side more than left side but she is noting pain on the left side. This is affecting her ambulatory status. This is affecting her quality of life. This affecting her activities and affecting her ability to do things she wants to do. We once again reviewed the MRI. Based on her MRI findings, her pain pattern, her failure to improve with conservative treatments and the significant response from the previous injection I recommended bilateral L5-S1 transforaminal epidural steroid injection under fluoroscopy for both diagnostic and therapeutic purposes. Procedure was discussed previous and benefits were discussed. Patient is agreeable. She will follow-up to us after the injection for reevaluation. Call clinic sooner if necessary. DIMPLE score: 42%. [facility]05-21-2024 Evaluation note* Author [facility] Authored December 24, 2023 1:52p m 53-year-old female with biop sy-proven MASH came today for follow-up. Liver biopsy on 12/16/2023 showed steatohepatitis with patchy bridging fibrosis. Patient has positive REYNALDO and SMA however liver biopsy showed no evidence of interface activity or bile duct injury Other laboratory workup for infectious autoimmune or metabolic etiologies of liver diseases were unremarkable. Patient does not have secondary causes of hepatic fat accumulation such as significant alcohol consumption, viral hepatitis, steatogenic medications (e.g., tamoxifen, amiodarone, methotrexate), or lipodystrophy. Pt was counseled about weight loss(10%) mediterranean diet and exercise ( >45 minutes X5 per week). Will prescribe Resmetirom and follow-up with insurance regarding approval [facility] Work Phone: 1(939) 890-920805-21-2024 Evaluation note* Author [facility] Authored December 24, 2023 1:52p m 53-year-old female with biop sy-proven MASH came today for follow-up. Liver biopsy on 12/16/2023 showed steatohepatitis with patchy bridging fibrosis. Patient has positive REYNALDO and SMA however liver biopsy showed no evidence of interface activity or bile duct injury Other laboratory workup for infectious autoimmune or metabolic etiologies of liver diseases were unremarkable. Patient does not have secondary causes of hepatic fat accumulation such as significant alcohol consumption, viral hepatitis, steatogenic medications (e.g., tamoxifen, amiodarone, methotrexate), or lipodystrophy. Pt was counseled about weight loss(10%) mediterranean diet and exercise ( >45 minutes X5 per week). Will prescribe Resmetirom and follow-up with insurance regarding approval Author Sofiya [facility] Authored March 17, 2024 9: 11am Assessment: Highest weight: 275 lbs Start weight: 247.3 lbs. Starting Date: 03/17/24. 1. Abnormal weight gain 2. Obesity-the patient will treat with long-term lifestyle changes of improved nutrition, increased exercise and activity, stress reduction, adequate sleep and behavioral modification versus short-term dieting. [ ] 3. [ ] 4. [ ] 5. [ ] 6. [ ] 7. [ ] 8. [ ] 9. [ ] 10. [ ] 11. [ ] Follow up with me in 6 weeks. New labs needed: [TSH, cholesterol profile, and CMP] The patient was instructed to consider logging all foods and caloric beverages. I highly recommended minimizing or stopping caloric beverages including alcohol. The importance of preplanning, shopping at the edge of the store, decreasing unhealthy food cues and environmental control stressed. I recommend packing snacks and meals when out of the home. Remove trigger/unhealthy foods if possible from the home. No macronutrient is completely restricted. We discussed the addictive nature and unhealthy biological changes that occur with ultra processed food. We discussed the brain and peripheral biological changes with obesity that make it a chronic disease. Importance of cooking most food items from scratch discussed. No skipping any meals. Avoid added sugar, refined starches, and added fats. I highly recommended preference for whole foods/real foods. Foods from the farm, not from the factory. The plate method discussed and handout given. Lean unprocessed protein with each meal and each snack to help control appetite, decrease cravings and lessen muscle loss with weight loss advised. Consider use of a protein shake or protein bar instead of missing a meal. The patient will try to get at least 5 or more servings of low carbohydrate veggies/salads daily. Recommend regular follow-up with our registered dietitian. Benefits of regular exercise including cardio and resistance training discussed and recommended as appropriate for the patient. Slowly increase activity. Our exercise program was recommended with our marine resource economist/obesity exercise group. Handout given. Our free weekly group support/food triggers program was highly recommended to help with long-term behavioral change and support. Handout given. The patient must start healthy behavioral changes. The patient was instructed on good sleep hygiene and on the importance of adequate sleep. Circadian rhythm and the importance of mealtime discussed. I recommended stress reduction. Medication addition and subtraction options discussed. Risks and benefits of prescribed meds discussed. Initial gduo-wp-rygy interview/evaluation. The patient was counseled in detail on the options for weight loss in an individual setting. [ ] minutes was spent caring for the patient, counseling/educating patient on the options for the treatment of obesity and related healthcare issues. The program's treatment goals were reviewed with the patient. Each aspect of the program was discussed with the patient. [facility] Work Phone: 1(488) 991-227204-08-2024 NoteHNO ID: [id number] Author: ALFREDO CRUZ MD Service: ? Author Type: Physician Type: Progress Notes Filed: 11/11/2023 09:28 Note Text: [facility] FOLLOW-UP [facility]ISIT Last visit: 09/24/2023 HISTORY OF PRESENT ILLNESS: Dejah Dykes is a 53 year old female with history of class 3 obesity with co-morbidities of pre-DM, HTN, SAIMA and OA who presents today for follow-up on weight management. Current weight loss medication: none Side effects of treatment: n/a Patient is here today to discuss about bariatric surgery. She was recently diagnosed with liver cirrhosis and her quarter inspector and rheumatology both recommended to consider bariatric surgery versus medications for weight loss. Review Of Systems See HPI and/or patient questionnaire. MEDICAL, FAMILY, and SOCIAL history reviewed and updated in chart ACTIVE PROBLEM LIST Ocd (Osteochondritis Dissecans) of [place] Pain in Joint, Ankle and Foot Left Ankle Instability Osteoarthrosis, Unspecified Whether Generalized Or Localized, Ankle and Foot Right Ankle Instability Neuroma Acquired Hypothyroidism Acne Rosacea Class 3 Severe Obesity With Body Mass Index (Bmi) of 40.0 to 44.9 in Adult (Hcc) Essential Hypertension Kidney Stones Sleep Apnea in Adult Current Outpatient Medications on File Prior to Visit Medication Sig metFORMIN ER (GLUCOPHAGE XR) 500 mg 24 hr tablet First week take one tablet with breakfast daily; second week: take one tablet with breakfast and one tablet with dinner; third week: take two pills with breakfast and one pill with dinner; fourth week and onwards: take two pills with breakfast and two pills with dinner. oxyCODONE-acetaminophen (PERCOCET) 5-325 mg tablet Take 1 tablet by mouth q 6 HR. pregabalin (LYRICA) 75 mg capsule Take 75 mg by mouth. tirzepatide, weight loss (ZEPBOUND) 2.5 mg/0.5 mL pen injector Inject 2.5 mg subcutaneously one time a week. levothyroxine 50 mcg cap Take 50 mcg by mouth daily before breakfast. potassium chloride 20 mEq TbER Take 20 mEq by mouth once daily. bisoprolol-hydroCHLOROthiazide (ZIAC) 5-6.25 mg per tablet Take by mouth. zolpidem (AMBIEN) 10 mg ORAL Tab Take 1 tablet by mouth at bedtime as needed. for insomnia. montelukast (SINGULAIR) 10 mg ORAL tablet Take 1 tablet by mouth daily at bedtime. Minocycline 135 mg ORAL Tb24 Take by mouth. No current facility-administered medications on file prior to visit. PHYSICAL EXAM: BP 138/81 Pulse 75 Ht 162.6 cm (5' 4 ) Wt 116 kg (255 lb 11.7 oz) LMP (LMP Unknown) SpO2 100% BMI 43.90 kg/m? BP: 138/81 Pulse: 75 SpO2: 100 % General: well appearing PERTINENT LABORATORY AND IMAGING: All pertinent laboratory / test results were reviewed. ASSESSMENT/PLAN: (E66.01, Z68.41) Class 3 severe obesity with serious comorbidity and body mass index (BMI) of 40.0 to 44.9 in adult, unspecified obesity type (HCC) (primary encounter diagnosis) Patient comes today for weight management, obesity and its comorbidities treatment. Briefly discussed the different kinds of surgeries and their benefits. Recommended BMI referral. Recommended to start metformin and continue per BMI recommendations. Orders placed: Orders Placed This Encounter bariatric consult Standing Status: Future Standing Expiration Date: 11/10/2024 Scheduling Instructions: The first step for considering bariatric (weight loss) surgery at [facility] is to watch the online seminar on the following website. Registration to the weight loss program will also be done online. [email or web address] Alternatively, to schedule appointment, please call Order Specific Question: Have you discussed weight management with your patient? Answer: Yes Order Specific Question: Are you requesting assessment for possible Bariatric Surgery for your patient? Answer: Yes Order Specific Question: Does consulting provider have [facility] Epic access? Answer: Yes Follow up PRN Signed: Alfredo Cruz MD Endocrinology and Metabolism [place] [facility] History of Present illness Narrative* Alfredo Cruz MD - 11/11/2023 9:20 AM EDT Images from the original note were not included. [facility] FOLLOW-UP VISIT Last visit: 09/24/2023 HISTORY OF PRESENT ILLNESS: Dejah Dykes is a 53 year old female with history of class 3 obesity with co- morbidities of pre-DM,HTN, SAIMA and OA who presents today for follow-up on weight management. Current weight loss medication: none Side effects of treatment: n/a Patient is here today to discuss about bariatric surgery. She was recently diagnosed with liver cirrhosis and her quarter inspector and rheumatology both recommended to consider bariatric surgery versus medications for weight loss. Review Of Systems See HPI and/or patient questionnaire. MEDICAL, FAMILY, and SOCIAL history reviewed and updated in chart ACTIVE PROBLEM LIST Ocd (Osteochondritis Dissecans) of Talus Pain in Joint, Ankle and Foot Left Ankle Instability Osteoarthrosis, Unspecified Whether Generalized Or Localized, Ankle and Foot Right Ankle Instability Neuroma Acquired Hypothyroidism Acne Rosacea Class 3 Severe Obesity With Body Mass Index (Bmi) of 40.0 to 44.9 in Adult (Hcc) Essential Hypertension Kidney Stones Sleep Apnea in Adult Current Outpatient Medications on File Prior to Visit Medication Sig metFORMIN ER (GLUCOPHAGE XR) 500 mg 24 hr tablet First week take one tablet with breakfast daily; second week: take one tablet with breakfast and one tablet with dinner; third week: take two pills with breakfast and one pill with dinner; fourth week and onwards: take two pills with breakfast and two pills with dinner. oxyCODONE-acetaminophen (PERCOCET) 5-325 mg tablet Take 1 tablet by mouth q 6 HR. pregabalin (LYRICA) 75 mg capsule Take 75 mg by mouth. tirzepatide, weight loss (ZEPBOUND) 2.5 mg/0.5 mL pen injector Inject 2.5 mg subcutaneously one time a week. levothyroxine 50 mcg cap Take 50 mcg by mouth daily before breakfast. potassium chloride 20 mEq TbER Take 20 mEq by mouth once daily. bisoprolol-hydroCHLOROthiazide (ZIAC) 5-6.25 mg per tablet Take by mouth. zolpidem (AMBIEN) 10 mg ORAL Tab Take 1 tablet by mouth at bedtime as needed. for insomnia. montelukast (SINGULAIR) 10 mg ORAL tablet Take 1 tablet by mouth daily at bedtime. Minocycline 135 mg ORAL Tb24 Take by mouth. No current facility-administered medications on file prior to visit. PHYSICAL EXAM: BP 138/81 Pulse 75 Ht 162.6 cm (5' 4 ) Wt 116 kg (255 lb 11.7 oz) LMP (LMP Unknown) SpO2 100% BMI 43.90 kg/m BP: 138/81 Pulse: 75 SpO2: 100 % General: well appearing PERTINENT LABORATORY AND IMAGING: All pertinent laboratory / test results were reviewed. ASSESSMENT/PLAN: (E66.01, Z68.41) Class 3 severe obesity with serious comorbidity and body mass index (BMI) of 40.0 to 44.9 in adult, unspecified obesity type (HCC) (primary encounter diagnosis) Patient comes today for weight management, obesity and its comorbidities treatment. Briefly discussed the different kinds of surgeries and their benefits. Recommended BMI referral. Recommended to start metformin and continue per BMI recommendations. Orders placed: Orders Placed This Encounter bariatric consult Standing Status: Future Standing Expiration Date: 11/10/2024 Scheduling Instructions: The first step for considering bariatric (weight loss) surgery at [facility] is to watch the online seminar on the following website. Registration to the weight loss program will also be done online. [email or web address] Alternatively, to schedule appointment, please call Order Specific Question: Have you discussed weight management with your patient? Answer: Yes Order Specific Question: Are you requesting assessment for possible Bariatric Surgery for your patient? Answer: Yes Order Specific Question: Does consulting provider have [facility] Epic access? Answer: Yes Follow up PRN Signed: Alfredo Cruz MD Endocrinology and Metabolism [facility] Instructions* Patient Instructions* Alfredo Cruz MD - 11/11/2023 9:20 AM EDT Images from the original note were not included. BARIATRIC REFERRAL The first step for considering bariatric (weight loss) surgery at [facility] is to watch the online seminar on the following website. Registration to the weight loss program will also be done online. [email or web address] Links: [email or web address] [email or web address]*_ga*ZjHbQdI8MDHqE h9cWyZ7Meg9VSk1*_ga_HWJ092SPKP*QLxtZKX8FcX4XQ6mLqLcQDxsRQD5PgL5CO4cHkZcYC.. [email or web address] [email or web address].[email or web address] Bariatric Service Information Session Registration: [email or web address]&_gl=1*9do2xq8*_ga*EzUkFfX9NNHeUg5pPiE4Lix2SNk9*_ga_HWJ092SPKP*MTcwNDM3 MuY3LZ6xNqKySEkrXDT9FlX1FK7gSbJrOO.. Alternatively, to schedule appointment, please call Link: [email or web address] documented in this [facility] Evaluation + Plan note Extracted from: Title:Right L5/S1 and S1 tra nsforaminal epidural steroid injection under fluoroscopic Author:Hu Davis DO Date:10/30/23 Diagnosis: M54.16, lumbar ra diculopathy Procedure: Right L5/S1 and S1 lumbosacral transforaminal epidural steroid injections under fluoroscopic guidance Anesthesia: Local Complications: none After informed consent was obtained, the patient was brought to the procedure suite placed in the prone position. Pulse oximetry and blood pressure were monitored throughout. The low back area is prepped and draped in usual sterile fashion. Using fluoroscopic guidance, skin and subcutaneous tissue overlying the medial trajectory of the neuroforamina were anesthetized with 2% lidocaine. A 22-gauge Sprotte needles were then advanced under fluoroscopic guidance to the appropriate foramina. Needle tip positions were confirmed under at least 2 fluoroscopic views. Injection of contrast revealed appropriate spread of the dye without vascular uptake. Next, at each site, 1.5 mL of 1.0% lidocaine with 5 mg of dexamethasone was injected through the needle tip. The needles were then removed and the patient was then transferred to the recovery room in stable condition. The pain tolerated the procedure well. There were no apparent complications. Follow-up: The patient will update us on the response to this procedure, and agrees to comply to currently prescribed/recommended therapies. Future Appointments Appointment Date:12/19/2023 03:15:00 PM Scheduled Provider:Hu Davis DO Location:[facility] Appointment Type:Pain Management - Follow Up (FT) [facility]03-27-2024 Note [id number] NoteDiagnosis: M54.16, lumbar radiculopathy Procedure: Right L5/S1 and S1 lumbosacral transforaminal epidural steroid injections under fluoroscopic guidance Anesthesia: Local Complications: none After informed consent was obtained, the patient was brought to the procedure suite placed in the prone position. Pulse oximetry and blood pressure were monitored throughout. The low back area is prepped and draped in usual sterile fashion. Using fluoroscopic guidance, skin and subcutaneous tissue overlying the medial trajectory of the neuroforamina were anesthetized with 2% lidocaine. A 22-gaugeSprotte needles were then advanced under fluoroscopic guidance to the appropriate foramina. Needle tip positions were confirmed under at least 2 fluoroscopic views. Injection of contrast revealed appropriate spread of the dye without vascular uptake. Next, at each site, 1.5 mL of 1.0% lidocaine with 5 mg of dexamethasone was injected through the needle tip. The needles were then removed and the patient was then transferred to the recovery room in stable condition. The pain tolerated the procedure well. There were no apparent complications. Follow-up: The patient will update us on the response to this procedure, and agrees to comply to currently prescribed/recommended therapies.[facility] Comment on above:Result Comment: Electronically Signed By: Hu Davis DO\.br\Date and Time Signed: 10/30/23 11:29 [id number] Evaluation + Plan note Extracted from: Title:chronic pain Author:Hu Davis DO Date:10/17/23 Patient is presenting with c omplaints of low back pain and right-sided radicular symptoms is been going on for the past 6 months or longer. She had spine surgery in 2018 and was doing very well after that but 1 to 2 years afterward she developed back pain that was worse as well as radicular symptoms down the lateral and posterior aspect of her leg all the way to the foot. This is worse with any standing or walking and she has tried a significant number of interventions thus far without lasting relief inclusive of medications such as NSAIDs, acetaminophen, pregabalin, opioid medication and none of these been significant lasting affected. She has had physical therapy in the remote past and does participate in home stretching strengthening exercises without significant lasting relief. 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 DIMPLE Score: 52% PHQ-2: 2 Patient denies any symptoms of progressively worsening upper/lower extremity weakness, progressively worsening gait abnormality, new onset bowel/bladder incontinence/ urinary retention, or saddle anesthesia. No new or worsening symptoms of fever, chills, night sweats. 14 Point Review of systems negative unless otherwise noted. General: No acute distress. Patient appears well-nourished. HEENT: Head is normocephalic and external ears are normal in appearance. Cardiovascular: No signs of poor perfusion and no peripheral edema Pulmonary: Nonlabored breathing, symmetric chest movement. GI: Abdomen nondistended Integumentary: No lesions Musculoskeletal: Nontender to palpation over the paraspinal muscles, facets, and sacroiliac joints. Tender to palpation lumbar paraspinal musculature. Neurologic: Alert, oriented x3. 5/5 strength grossly in the bilateral upper extremities. Sensation intact to light touch in the bilateral upper extremities. 5/5 strength grossly in the bilateral lower extremities. Sensation intact to light touch in the bilateral lower extremities, except slightly diminished right L4 and L5 dermatome compared to contralateral side. Special Testing: History, physical examination, and personal review of pertinent imaging results indicate a diagnosis of: -Lumbar postlaminectomy pain syndrome -Lumbar radiculopathy and a right L5 and S1 dermatomal distribution Plan: -We lengthy discussion about her current symptoms we discussed that it be reasonable for her to continue on Lyrica 75 mg twice daily, we also encouraged follow-up with her php software engineer to discuss possibility of any autoimmune reasons for arthritis in different regions -We discussed that we will try to perform a right-sided L5/S1 and S1 transforaminal epidural steroid injection after reviewing her MRI it does appear that she has 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 Patient was counseled on the above diagnosis and treatment, all questions were answered and patient agrees to adhere to the plan above. Risk and benefits of appropriate procedures and medications were reviewed as well with patient, who voiced understanding and agreeance. Patient was counseled on appropriate use of opioids if prescribed or renewed today and naloxone was offered to patient if opioids were prescribed or maintained at this visit. PHQ-2 scoring reviewed with patient and discussed seeking treatment for depression or mood disorder as appropriate. Patient was counseled on smoking cessation and/or continuing to abstain from nicotine/tobacco products as appropriate based on history; as smoking/nicotine can contribute to increased pain overall and decreased wound healing. Patient counseled on maintaining a healthy BMI as part of the total treatment of their pain and to reduce stress/strain on joints. Patient invited to return or call with any questions or concerns that arise. [facility]03-12-2024 NotePt cancelled PT evaluation in the remind system today. Chart was prepped for this evaluation.[facility]02-24-2024 Hospital Discharge instructions Patient Education 09/28/2023 15:37:40 COVID-19 COVID-19 COVID-19, or coronavirus disease 2019, is an infection that is caused by a new (novel) coronavirus called SARS-CoV-2. COVID-19 can cause many symptoms. In some people, the virus may not cause any symptoms. In others, it may cause mild or severe symptoms. Some people with severe infection develop severe disease. What are the causes? This illness is caused by a virus. The virus may be in the air as tiny specks of fluid (aerosols) or droplets, or it may be on surfaces. You may catch the virus by: Breathing in droplets from an infected person. Droplets can be spread by a person breathing, speaking, singing, coughing, or sneezing. Touching something, like a table or a doorknob, that has virus on it (is contaminated) and then touching your mouth, nose, or eyes. What increases the risk? Risk for infection: You are more likely to get infected with the COVID-19 virus if: You are within 6 ft (1.8 m) of a person with COVID-19 for 15 minutes or longer. You are providing care for a person who is infected with COVID-19. You are in close personal contact with other people. Close personal contact includes hugging, kissing, or sharing eating or drinking utensils. Risk for serious illness caused by COVID-19: You are more likely to get seriously ill from the COVID-19 virus if: You have cancer. You have a long-term (chronic) disease, such as: ?Chronic lung disease. This includes pulmonary embolism, chronic obstructive pulmonary disease, andcystic fibrosis. ?Long-term disease that lowers your body's ability to fight infection (immunocompromise). ?Serious cardiac conditions, such as heart failure, coronary artery disease, or cardiomyopathy. ?Diabetes. ?Chronic kidney disease. ?Liver diseases. These include cirrhosis, nonalcoholic fatty liver disease, alcoholic liver disease, or autoimmune hepatitis. You have obesity. You are or were recently . You have sickle cell disease. What are the signs or symptoms? Symptoms of this condition can range from mild to severe. Symptoms may appear any time from 2 to 14days after being exposed to the virus. They include: Fever or chills. Shortness of breath or trouble breathing. Feeling tired or very tired. Headaches, body aches, or muscle aches. Runny or stuffy nose, sneezing, coughing, or sore throat. New loss of taste or smell. This is rare. Some people may also have stomach problems, such as nausea, vomiting, or diarrhea. Other people may not have any symptoms of COVID-19. How is this diagnosed? This condition may be diagnosed by testing samples to check for the COVID-19 virus. The most commontests are the PCR test and the antigen test. Tests may be done in the lab or at home. They include: Using a swab to take a sample of fluid from the back of your nose and throat (nasopharyngeal fluid), from your nose, or from your throat. Testing a sample of saliva from your mouth. Testing a sample of coughed-up mucus from your lungs (sputum). How is this treated? Treatment for COVID-19 infection depends on the severity of the condition. Mild symptoms can be managed at home with rest, fluids, and zqku-qlb-lzkzmya medicines. Serious symptoms may be treated in a hospital intensive care unit (ICU). Treatment in the ICU may include: ?Supplemental oxygen. Extra oxygen is given through a tube in the nose, a face mask, or a vegas. ?Medicines. These may include: ?Antivirals, such as monoclonal antibodies. These help your body fight off certain viruses that cancause disease. ?Anti-inflammatories, such as corticosteroids. These reduce inflammation and suppress the immune system. ?Antithrombotics. These prevent or treat blood clots, if they develop. ?Convalescent plasma. This helps boost your immune system, if you have an underlying immunosuppressive condition or are getting immunosuppressive treatments. ?Prone positioning. This means you will lie on your stomach. This helps oxygen to get into your lungs. ?Infection control measures. If you are at risk for more serious illness caused by COVID-19, your health care provider may prescribe two long-acting monoclonal antibodies, given together every 6 months. How is this prevented? To protect yourself: Use preventive medicine (pre-exposure prophylaxis). You may get pre-exposure prophylaxis if you have moderate or severe immunocompromise. Get vaccinated. Anyone 6 months old or older who meets guidelines can get a COVID-19 vaccine or vaccine series. This includes people who are or making breast milk (lactating). Get an added dose of COVID-19 vaccine after your first vaccine or vaccine series if you have moderate to severe immunocompromise. This applies if you have had a solid organ transplant or have been diagnosed with an immunocompromising condition. ?You should get the added dose 4 weeks after you got the first COVID-19 vaccine or vaccine series. ?If you get an mRNA vaccine, you will need a 3-dose primary series. ?If you get the J&J/Jimbo vaccine, you will need a 2-dose primary series, with the second dose being an mRNA vaccine. Talk to your health care provider about getting experimental monoclonal antibodies. This treatment is approved under emergency use authorization to prevent severe illness before or after being exposed to the COVID-19 virus. You may be given monoclonal antibodies if: ?You have moderate or severe immunocompromise. This includes treatments that lower your immune response. People with immunocompromise may not develop protection against COVID-19 when they are vaccinated. ?You cannot be vaccinated. You may not get a vaccine if you have a severe allergic reaction to the vaccine or its components. ?You are not fully vaccinated. ?You are in a facility where COVID-19 is present and: ?Are in close contact with a person who is infected with the COVID-19 virus. ?Are at high risk of being exposed to the COVID-19 virus. ?You are at risk of illness from new variants of the COVID-19 virus. To protect others: If you have symptoms of COVID-19, take steps to prevent the virus from spreading to others. Stay home. Leave your house only to get medical care. Do not use public transit, if possible. Do not travel while you are sick. Wash your hands often with soap and water for at least 20 seconds. If soap and water are not available, use alcohol-based hand information officer. Make sure that all people in your household wash their hands well and often. Cough or sneeze into a tissue or your sleeve or elbow. Do not cough or sneeze into your hand or into the air. Where to find more information Centers for Disease Control and Prevention: www.cdc.gov/coronavirus World Health Organization: www.who.int/health-topics/coronavirus Get help right away if: You have trouble breathing. You have pain or pressure in your chest. You are confused. You have bluish lips and fingernails. You have trouble waking from sleep. You have symptoms that get worse. These symptoms may be an emergency. Get help right away. Call 911. Do not wait to see if the symptoms will go away. Do not drive yourself to the hospital. Summary COVID-19 is an infection that is caused by a new coronavirus. Sometimes, there are no symptoms. Other times, symptoms range from mild to severe. Some people witha severe COVID-19 infection develop severe disease. The virus that causes COVID-19 can spread from person to person through droplets or aerosols from breathing, speaking, singing, coughing, or sneezing. Mild symptoms of COVID-19 can be managed at home with rest, fluids, and otlj-tye-gnmvhip medicines. This information is not intended to replace advice given to you by your health care provider. Make sure you discuss any questions you have with your health care provider. Document Revised: 07/12/2022 Document Reviewed: 07/12/2022 [employer] Patient Education 2022 [employer]. Follow Up Care 09/28/2023 14:45:50 With:Lenora SANTOS PA-C, FAM Address: [address] [place] [id number] When:10/01/2023 [facility]02-24-2024 NoteInfectious Disease COVID-19 COVID-19, or coronavirus disease 2019, is an infection that is caused by a new (novel) coronavirus called SARS-CoV-2. COVID-19 can cause many symptoms. In some people, the virus may not cause any symptoms. In others, it may cause mild or severe symptoms. Some people with severe infection develop severe disease. What are the causes? This illness is caused by a virus. The virus may be in the air as tiny specks of fluid (aerosols) or droplets, or it may be on surfaces. You may catch the virus by: ? Breathing in droplets from an infected person. Droplets can be spread by a person breathing, speaking, singing, coughing, or sneezing. ? Touching something, like a table or a doorknob, that has virus on it (is contaminated) and then touching your mouth, nose, or eyes. What increases the risk? Risk for infection: You are more likely to get infected with the COVID-19 virus if: ? You are within 6 ft (1.8 m) of a person with COVID-19 for 15 minutes or longer. ? You are providing care for a person who is infected with COVID-19. ? You are in close personal contact with other people. Close personal contact includes hugging, kissing, or sharing eating or drinking utensils. Risk for serious illness caused by COVID-19: You are more likely to get seriously ill from the COVID-19 virus if: ? You have cancer. ? You have a long-term (chronic) disease, such as: ? Chronic lung disease. This includes pulmonary embolism, chronic obstructive pulmonary disease, and cystic fibrosis. ? Long-term disease that lowers your body's ability to fight infection (immunocompromise). ? Serious cardiac conditions, such as heart failure, coronary artery disease, or cardiomyopathy. ? Diabetes. ? Chronic kidney disease. ? Liver diseases. These include cirrhosis, nonalcoholic fatty liver disease, alcoholic liver disease, or autoimmune hepatitis. ? You have obesity. ? You are or were recently . ? You have sickle cell disease. What are the signs or symptoms? Symptoms of this condition can range from mild to severe. Symptoms may appear any time from 2 to 14days after being exposed to the virus. They include: ? Fever or chills. ? Shortness of breath or trouble breathing. ? Feeling tired or very tired. ? Headaches, body aches, or muscle aches. ? Runny or stuffy nose, sneezing, coughing, or sore throat. ? New loss of taste or smell. This is rare. Some people may also have stomach problems, such as nausea, vomiting, or diarrhea. Other people may not have any symptoms of COVID-19. How is this diagnosed? This condition may be diagnosed by testing samples to check for the COVID-19 virus. The most commontests are the PCR test and the antigen test. Tests may be done in the lab or at home. They include: ? Using a swab to take a sample of fluid from the back of your nose and throat (nasopharyngeal fluid), from your nose, or from your throat. ? Testing a sample of saliva from your mouth. ? Testing a sample of coughed-up mucus from your lungs (sputum). How is this treated? Treatment for COVID-19 infection depends on the severity of the condition. ? Mild symptoms can be managed at home with rest, fluids, and ojro-iip-mmzfcrp medicines. ? Serious symptoms may be treated in a hospital intensive care unit (ICU). Treatment in the ICU mayinclude: ? Supplemental oxygen. Extra oxygen is given through a tube in the nose, a face mask, or a vegas. ? Medicines. These may include: ? Antivirals, such as monoclonal antibodies. These help your body fight off certain viruses that can cause disease. ? Anti-inflammatories, such as corticosteroids. These reduce inflammation and suppress the immune system. ? Antithrombotics. These prevent or treat blood clots, if they develop. ? Convalescent plasma. This helps boost your immune system, if you have an underlying immunosuppressive condition or are getting immunosuppressive treatments. ? Prone positioning. This means you will lie on your stomach. This helps oxygen to get into your lungs. ? Infection control measures. If you are at risk for more serious illness caused by COVID-19, your health care provider may prescribe two long-acting monoclonal antibodies, given together every 6 months. How is this prevented? To protect yourself: ? Use preventive medicine (pre-exposure prophylaxis). You may get pre-exposure prophylaxis if you have moderate or severe immunocompromise. ? Get vaccinated. Anyone 6 months old or older who meets guidelines can get a COVID-19 vaccine or vaccine series. This includes people who are or making breast milk (lactating). ? Get an added dose of COVID-19 vaccine after your first vaccine or vaccine series if you have moderate to severe immunocompromise. This applies if you have had a solid organ transplant or have been diagnosed with an immunocompromising condition. ? You should (more content not included)...[facility]02-24-2024 Evaluation + Plan noteExtracted from: Title:ED Note Author:Lara Reyes PA-C ate:09/28/23 1. COVID (U07.1: COVID-19) Orders: ketorolac, 30 mg = 1 mL, Injection, IntraMuscular, Once, Stop date 09/28/23 15:36:00 EST, STAT, Start date 09/28/23 15:36:00 EST, 09/28/23 15:36:00 EST Future Appointments Appointment Date:10/17/2023 08:30:00 AM Scheduled Provider:Hu Davis DO Location:[facility] Appointment Type:Pain Management - [facility] ([facility]02-20-2024 NoteHNO ID: [id number] Author: ALFREDO CRUZ MD Service: ? Author Type: Physician Type: Progress Notes Filed: 09/24/2023 14:51 Note Text: Endocrinology and Metabolism [facility] - Initial Visit Patient Name: Dejah Dykes Referring Provider: Elly Galicia [address] [place] [address] My final recommendations will be communicated back to the requesting physician by way of shared medical record or letter via US mail. Chief complaint: medical weight management HPI: Dejah Dykes is a 53 year old female who presents on September 24, 2023 for medical weight management. Weight history: Struggled with weight for a very long time but acutely gained weight when she was diagnosed with hypothyroidism Previous attempts at weight loss: phentermine many years ago Maximum weight: 270lbs Current weight: 253lbs Patient goal or motivation for weight loss: b/l OA of knees, back pain Factors associated with weight gain: Family history of overweight: yes or menopause: menopausa Tobacco use: no Weight gain associated with shift work: no Poor quality, unrestful sleep: yes Medications may be associated with weight gain: bisoprolol Weight graph: Target Weight : 200 pounds Last Wt 09/24/23 : 115 kg (253 lb 8.5 oz) 5% weight loss = 241 lbs, 10% weight loss = 228 lbs 24-HR RECALL OF MEALS: Breakfast: wheat bagel with cream cheese Lunch: hamburger without bun, with lettuce, tomato and ketchup Dinner: slice of pork, half potato and corn Typical beverages: regular soda Sugar-containing beverages: yes, 1 MINI can per day EtOH: No Eating out/take out: Yes, once every few weeks Feel hungry frequently: No Takes more food than average to feel full: No Feels hungry quickly after eating a meal: No Eat when not hungry (boredom, stress/emotional): Yes Frequent cravings or preoccupation with food: No Frequently overeating or binge eating: No Portion control: Yes Late night or middle of night eating: No Exercise/activity level: Walking Limited due to back pain, b/l knee pain Planning to walk in the swimming pool Sleep: SAIMA: yes CPAP: yes Mood, stress: Well managed 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, 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 Substance use: none Previous experience with weight loss medications: yes Bupropion/naltrexone: no Phentermine: years ago Topiramate: no GLP-1/GIP: no Metformin: no History of bariatric surgery or interest in bariatric surgery: no Medical history pertaining to weight loss medications: History of pancreatitis or gallstones: no History of kidney stones: yes, 15 stones in the last 20 years History of seizures: no Current opiate use: no History of glaucoma: no History of CAD or uncontrolled HTN: no Personal/family history of MEN2, MTC: no History of diabetic retinopathy: no Method of contraception if woman of child bearing age: n/a CO-MORBIDITIES: Hypertension, Obstructive Sleep Apnea, and Osteoarthritis ALLERGIES: ALLERGIES Allergen Reactions - Vicodin [Hydrocodon* Other: See Comments Hallucinations - Adhesive Tape (Windy* Rash, Itching - Seasonal Allergies Itching, Other: See Comments Watery eyes, runny nose, sneezing Current Outpatient Medications on File Prior to Visit Medication Sig - oxyCODONE-acetaminophen (PERCOCET) 5-325 mg tablet Take 1 tablet by mouth q 6 HR. - pregabalin (LYRICA) 75 mg capsule Take 75 mg by mouth. - levothyroxine 50 mcg cap Take 50 mcg by mouth daily before breakfast. - potassium chloride 20 mEq TbER Take 20 mEq by mouth once daily. - bisoprolol-hydroCHLOROthiazide (ZIAC) 5-6.25 mg per tablet Take by mouth. - zolpidem (AMBIEN) 10 mg ORAL Tab Take 1 tablet by mouth at bedtime as needed. for insomnia. - montelukast (SINGULAIR) 10 mg ORAL tablet Take 1 tablet by mouth daily at bedtime. - Minocycline 135 mg ORAL Tb24 Take by mouth. No current facility-administered medications on file prior to visit. PAST MEDICAL HISTORY Diagnosis Date - Acne rosacea 02/01/2023 - Acquired hypothyroidism 02/14/2023 Last Assessment AND Plan: Will continue current meds and see in one month - Class 3 severe obesity with body mass index (BMI) of 40.0 to 44.9 in adult ([facility]) 02/01/2023 - Essential hypertension 01/04/2023 - Kidney stones 02/01/2023 - Neuroma 08/22/2011 - OCD (osteochondritis dissecans) of talus 03/14/2011 - Osteoarthrosis, unspecified whether generalized or localized, ankle and foot 03/20/2011 - Sleep apnea in adult 01/04/2023 History reviewed. No pertinent surgical history. History reviewed. No pertinent family history. Social History Tobacco Use - Smoking status: Never Substance Use Topics - Alcohol use: Yes Comment: 4-5x/year - Drug use: No REVIEW OF SYSTEMS: Review of Systems Constitutional: Positive for (more content not included)...[facility]02-20-2024 Instructions* Patient Instructions* Alfredo Cruz MD - 09/24/2023 1:45 PM EST Images from the original note were not included. TIRZEPATIDE (Zepbound) Savings Card Eligibility: You have been prescribed Zepbound consistent with FDA-approved product labeling. You are enrolled in a commercial drug insurance plan You are not enrolled in any state, federal, or government funded healthcare program, including, without limitation, Medicaid, Medicare, Medicare Part D, Medicare Advantage, Medigap, DoD, VA, [facility], or any state prescription drug assistance program. You are a resident of the [place] or [place] You are 18 years of age or older Savings Card Terms and Conditions For patients with commercial drug insurance coverage for Zepbound: You must have commercial drug insurance that covers Zepbound (tirzepatide) and a prescription consistent with FDA-approved product labeling to pay as little as $25 for a 1- month, 2-month, or 3-month prescription fill of Zepbound. Month is defined as 28-days and up to 4 pens. Card savings are subject to a maximum monthly savings ofup to $150 per 1-month prescription, $300 per 2-month prescription, or $450 per 3-month prescription fill and separate maximum annual savings of up to $1,800 per calendar year. Card may be used for amaximum of up to 13 prescription fills per calendar year. Participation in the Program requires a valid patient HIPAA authorization. Subject to Mobile [employer] s ( [employer] ) right to terminate, rescind,revoke, or amend Card eligibility criteria and/or Card terms and conditions which may occur at [employer] s sole discretion, without notice, and for any reason, Card expires and savings end on 08/04/2024. For patients with commercial drug insurance who do not have coverage for Zepbound: You must have commercial drug insurance that does not cover Zepbound and a prescription consistent with FDA-approvedproduct labeling to obtain savings of up to $563 off your 1-month prescription fill of Zepbound. Month is defined as 28-days and up to 4 pens. Card savings are subject to a maximum monthly savings ofup to $563 and a separate maximum annual savings of up to $7,319 per calendar year. Card may be used for a maximum of up to 13 prescription fills per calendar year. Participation in the Program requires a valid patient HIPAA authorization. Subject to [employer] s right to terminate, rescind, revoke, or amend Card eligibility criteria and/or Card terms and conditions which may occur at [employer] s sole discretion, without notice, and for any reason, Card expires and savings end on 08/04/2024 Video Instructions for Injecting Zepbound: https://www.MedeFile Internationalube.com/watch?v=gA6BuTF8Lnv Link to Construction Craft Laborer Website https://www.IPtronics A/S/ Savings card: https://www.IPtronics A/S/coverage-savings Medication Guide: https://www.IPtronics A/S/dhzt-vo-vzrozmwe Written pen instructions: https://www.IPtronics A/S/how-to-use Tirzepatide: Patient drug information What is Zepbound? Zepbound is an injectable prescription medicine that is used along with diet and exercise to improve blood sugar (glucose) in adults with type 2 diabetes mellitus. It is not known if Mounjaro can be used in people who have had inflammation of the pancreas (pancreatitis). Mounjaro is not for use in people with type 1 diabetes. It is not known if Mounjaro is safeand effective for use in children under 18 years of age. Check out Senior Moments.Fiverr.com for savings coupon and more information regarding Zepbound. Zepbound Information: Do not take Zepbound if you have the following: -/-Your oral birthcontrol will not work-add a barrier method of contraceptionfor 4 weeks after starting the medication and for 4 weeks after each dose escalation. -Personal history of pancreatitis -Personal or family history of thyroid cancer or Multiple Endocrine Neoplasia syndrome -Diabetic Retinopathy -Type 1 diabetes Your oral birthcontrol will not work: -If you are on oral contraceptives, add a barrier method of contraception for 4 weeks after starting the medication and for 4 weeks after each dose escalation. Common side effects include (>5%): Nausea Vomiting Diarrhea or Constipation Indigestion Pancreatitis (not common but can present as a severe pain in stomach- stop medication and call office) Serious side effects: -Acute Gallbladder Disease: In clinical trials, acute gallbladder disease was reported by 0.6% of treated patients -Risk of Thyroid C-cell Tumors-seen in the lab studies with rats. -Pancreatitis: Acute pancreatitis, including fatal and non-fatal hemorrhagic or necrotizing pancreatitis, has been observed in patients treated with GLP-1 receptor agonists. -Acute Kidney Injury: Zepbound has been associated with gastrointestinal adverse reactions, which include nausea, vomiting, and diarrhea. These events may lead to dehydration, which if severe could cause acute kidney injury -Severe Gastrointestinal Disease: Use of Zepbound has been associated with gastrointestinal adversereactions, sometimes severe. -Worsening of Diabetic Retinopathy Complications in Patients with a History of Diabetic Retinopathy. Rapid improvement in glucose control has been associated with a temporary worsening of diabetic retinopathy. Zepbound has not been studied in patients with non-proliferative diabetic retinopathy requiring acute therapy, proliferative diabetic retinopathy, or diabetic macular edema. Patients with ahistory of diabetic retinopathy should be monitored for progression. How to take Zepbound: - Zepbound comes in a single-dose pen that requires no mixing -Use Zepbound 1 time each week, at any time of the day - If you want to change the day of the week you take your dose, make sure there are at least 3 days(72 hours) between doses. - If you miss a dose, take the missed dose as soon as possible within 4 days (96 hours) after the missed dose. If more than 4 days have passed, skip the missed dose and take your next dose on the regularly scheduled day. Do not take 2 doses within 3 days of each other. Tip: If you experience nausea try: -eating smaller meals -stop eating when you feel full -Avoid fat or fatty foods [facility] of Present illness Narrative* Alfredo Cruz MD - 09/24/2023 1:32 PM EST Images from the original note were not included. Endocrinology and Metabolism [facility] - Initial Visit Patient Name: Dejah Dykes Referring Provider: Elly Galicia [address] [place], [place] [id number] My final recommendations will be communicated back to the requesting physician by way of shared medical record or letter via US mail. Chief complaint: medical weight management HPI: Dejah Dykes is a 53 year old female who presents on September 24, 2023 for medical weight management. Weight history: Struggled with weight for a very long time but acutely gained weight when she was diagnosed with hypothyroidism Previous attempts at weight loss: phentermine many years ago Maximum weight: 270lbs Current weight: 253lbs Patient goal or motivation for weight loss: b/l OA of knees, back pain Factors associated with weight gain: Family history of overweight: yes or menopause: menopausa Tobacco use: no Weight gain associated with shift work: no Poor quality, unrestful sleep: yes Medications may be associated with weight gain: bisoprolol Weight graph: Target Weight : 200 pounds Last Wt 09/24/23 : 115 kg (253 lb 8.5 oz) 5% weight loss = 241 lbs, 10% weight loss = 228 lbs 24-HR RECALL OF MEALS: Breakfast: wheat bagel with cream cheese Lunch: hamburger without bun, with lettuce, tomato and ketchup Dinner: slice of pork, half potato and corn Typical beverages: regular soda Sugar-containing beverages: yes, 1 MINI can per day EtOH: No Eating out/take out: Yes, once every few weeks Feel hungry frequently: No Takes more food than average to feel full: No Feels hungry quickly after eating a meal: No Eat when not hungry (boredom, stress/emotional): Yes Frequent cravings or preoccupation with food: No Frequently overeating or binge eating: No Portion control: Yes Late night or middle of night eating: No Exercise/activity level: Walking Limited due to back pain, b/l knee pain Planning to walk in the swimming pool Sleep: SAIMA: yes CPAP: yes Mood, stress: Well managed 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, 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 Substance use: none Previous experience with weight loss medications: yes Bupropion/naltrexone: no Phentermine: years ago Topiramate: no GLP-1/GIP: no Metformin: no History of bariatric surgery or interest in bariatric surgery: no Medical history pertaining to weight loss medications: History of pancreatitis or gallstones: no History of kidney stones: yes, 15 stones in the last 20 years History of seizures: no Current opiate use: no History of glaucoma: no History of CAD or uncontrolled HTN: no Personal/family history of MEN2, MTC: no History of diabetic retinopathy: no Method of contraception if woman of child bearing age: n/a CO-MORBIDITIES: Hypertension, Obstructive Sleep Apnea, and Osteoarthritis ALLERGIES: ALLERGIES Allergen Reactions Vicodin [Hydrocodon* Other: See Comments Hallucinations Adhesive Tape (Windy* Rash, Itching Seasonal Allergies Itching, Other: See Comments Watery eyes, runny nose, sneezing Current Outpatient Medications on File Prior to Visit Medication Sig oxyCODONE-acetaminophen (PERCOCET) 5-325 mg tablet Take 1 tablet by mouth q 6 HR. pregabalin (LYRICA) 75 mg capsule Take 75 mg by mouth. levothyroxine 50 mcg cap Take 50 mcg by mouth daily before breakfast. potassium chloride 20 mEq TbER Take 20 mEq by mouth once daily. bisoprolol-hydroCHLOROthiazide (ZIAC) 5-6.25 mg per tablet Take by mouth. zolpidem (AMBIEN) 10 mg ORAL Tab Take 1 tablet by mouth at bedtime as needed. for insomnia. montelukast (SINGULAIR) 10 mg ORAL tablet Take 1 tablet by mouth daily at bedtime. Minocycline 135 mg ORAL Tb24 Take by mouth. No current facility-administered medications on file prior to visit. PAST MEDICAL HISTORY Diagnosis Date Acne rosacea 02/01/2023 Acquired hypothyroidism 02/14/2023 Last Assessment & Plan: Will continue current meds and see in one month Class 3 severe obesity with body mass index (BMI) of 40.0 to 44.9 in adult ([facility]) 02/01/2023 Essential hypertension 01/04/2023 Kidney stones 02/01/2023 Neuroma 08/22/2011 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 No pertinent surgical history. History reviewed. No pertinent family history. Social History Tobacco Use Smoking status: Never Substance Use Topics Alcohol use: Yes Comment: 4-5x/year Drug use: No REVIEW OF SYSTEMS: Review of Systems Constitutional: Positive for fatigue and recent unintentional weight change. Negative for night sweats. HENT: Negative for trouble swallowing, postnasal drip and thyroid pain (lower neck). Eyes: Negative for visual disturbance. Respiratory: Negative for difficulty breathing. Cardiovascular: Positive for leg swelling and claudication. Negative for chest pain. Gastrointestinal: Negative for heartburn, nausea, vomiting, abdominal pain, diarrhea and constipation. Genitourinary: Positive for amenorrhea. Negative for urgency, frequent urination, slower stream, menstruating and irregular menses. Musculoskeletal: Positive for myalgias and muscle weakness. Negative for bone pain. Skin: Negative for skin color change. Neurological: Positive for numbness. Negative for dizziness and headaches. Endo/Heme/Allergies: Positive for polydipsia, cold intolerance when others are comfortable, heat intolerance when others are comfortable and flushing. Negative for hot flashes and changes in body hair. OBJECTIVE: PHYSICAL EXAM: BP 145/84 Pulse 84 Ht 162.6 cm (5' 4 ) Wt 115 kg (253 lb 8.5 oz) LMP (LMP Unknown) SpO2 99% BMI 43.52 kg/m Body mass index is 43.52 kg/m . No LMP recorded (lmp unknown). Patient has had a hysterectomy. General: Well appearing, not in acute distress LABS: No results found for: CHOL , HDL , LDL , TG No results found for: HBA1C TSH Date Value Ref Range Status 06/24/2023 3.580 0.270 - 4.200 mIU/L Final Free T4 Date Value Ref Range Status 06/24/2023 1.0 0.9 - 1.7 ng/dL Final ] Computed FIB-4 Calculation unavailable. One or more values for this score either were not found within the given timeframe or did not fit some other criterion. (E66.01, Z68.41) Class 3 severe obesity with serious comorbidity and body mass index (BMI) of 40.0 to 44.9 in adult, unspecified obesity type (HCC) - Patient comes today for treatment of overweight/obesity and its comorbidities. Patient has a BMI of 43.52 that is consistent with OBESITY CLASS 3. - Patient tried different weight loss modalities in the past including phentermine, many years ago - Pertinent co-morbidities of obesity include HTN, SAIMA, hypothyroidism, OA of knees. - Patient's health and quality of life are compromised due to current weight and patient is motivated for weight loss. Our goal is to treat obesity to decrease long-term medical complications, comorbidities and improve lifestyle. PLAN: - Reviewed principles of energy metabolism, caloric intake and expenditure - Goals: -- 5-10% weight loss over 6 months is reasonable -- At least 6-month commitment to losing weight - Diet: risk factors for overweight/obesity include: irregular eating pattern, calorie-dense foods,and sugary beverages -- Will refer to endo dietitian to discuss nutrition and identify the best approach and the individualized nutritional plan--low carb mediterranean -- Portion control -- No skipping meals--helps to avoid severe hunger, which can contribute to larger portions, overeating, less healthy dietary choices, etc. - Pharmacotherapy: -- I have reviewed with the patient the possibility of using weight loss medications and the various options available. -- Start Zepbound 2.5mg weekly for the first month and increase to 5mg weekly afterwards. -- Reviewed that there are no contraindications to the above medications; discussed expectations and common side effects of the prescribed medications. -- In women of child-bearing age, we reviewed that is not recommended while taking weightloss medications. -- If Zepbound is not covered, recommend starting metformin. -- Current weight-promoting medications: bisoprolol -- Exercise: -- Limited mobitily due to b/l knee pain and back pain. Advised to start walking in the swimming pool as advised by her php software engineer. -- Discussed basic exercise recommendations, the role of exercise on weight loss and maintenance. Discussed the combination of aerobic and resistance exercise. -- Most patients benefit from a personalized exercise program. Will refer to endocrine marine resource economist -- Recommend gradual increase in exercise. Goal is 150 minutes moderate- intensity exercise per week+ strength training/resistance exercise 2 days per week. -- Sleep: -- Discussed the importance of sleep hygiene -- Recommend 7-8 hours sleep per night -- CPAP nightly -- Behavioral: -- Discussed the effect of stress and its relationship with weight gain. Stress management is very important. -- Self monitoring: suggest home weigh-ins at least 1x/week, food journals / trackers (Food log, MyFitness Pal), activity journals / trackers (PublicRelay watch, Make Music TV Bit, [employer] vivofit, Striiv). I will see her back in a 3 month(s). She will give me a call in a couple of weeks to let me know how she is doing with the new treatments started. DIAGNOSIS: Encounter Diagnosis ICD-10-CM 1. Class 3 severe obesity with serious comorbidity and body mass index (BMI) of 40.0 to 44.9 in adult, unspecified obesity type (HCC) E66.01 Z68.41 Alfredo Cruz MD [facility] Endocrinology and Metabolism [place] [facility] [phone] Medical Decision Making: Problems: Moderate: 1+ chronic illnesses with change Data: Unique source(s) for external note(s) reviewed: 1 Unique test result(s) reviewed: 3+ Unique test(s) ordered: 3+ Risk: Moderate: Drug management Medical Decision Making Level: 4 - Moderate documented in [facility] Telephone encounter Note * Telephone Encounter - MEHRAN Leggett - 09/18/2023 3:45 PM EST [id number] Miscellaneous Notes* Telephone Encounter - MEHRAN Leggett - 09/18/2023 3:45 PM EST completed documented in [facility] encounterSaint [facility] [id number] NoteEchocardiology Procedure Exam Date/Time Accession # Ordering Echo Transthoracic 08/13/2023 09:46 EST [id number] Forest Gonzalez MD CPT code 47933 [id number] Reason for Exam (Echo Transthoracic Complete) Abnormal ECG R94.31;Other (please specify) Report Version: 1 Study ID: [id number] [facility] [address] [place] [address] Adult Echocardiogram Report Name: DEJAH DYKES Study Date: 08/13/2023, 9: 11 AM Patient Location: [facility] : 1970 (MM/DD/YYYY) Gender: Female Age: 53 Years Height: 162.56 cm BP: 138 / 75 mmHg Weight: 124.74 kg HR: 62 bpm BSA: 2.24 m? Ordering Physician: Forest Gonzalez Referring Physician: Forest Gonzalez Performed By: Pauline Louis RDCS Reason For Study: Abnormal ECG History: HTN, SAIMA, Hoshimotos Interpretation Summary Ejection Fraction = 60-65%. The left ventricle is normal in size. The left ventricular wall motion is normal. Normal diastolic function. The left atrial size is normal. The right ventricular systolic function is normal. There is no aortic stenosis. There is no mitral regurgitation noted. Right ventricular systolic pressure is normal. Procedure A complete two-dimensional transthoracic echocardiogram was performed (2D, M- mode, spectral and color flow Doppler). Study quality is good. Left Ventricle Echocardiology Report The left ventricle is normal in size. There is normal left ventricular wall thickness. Ejection Fraction = 60-65%. The left ventricular wall motion is normal. Normal diastolic function. Left Atrium The left atrial size is normal. Right Atrium Right atrial size is normal. Right Ventricle The right ventricular systolic function is normal. The right ventricle is normal size. The right ventricular wall motion is normal. Aortic Valve The aortic valve is trileaflet. No aortic regurgitation. There is no aortic stenosis. Mitral Valve The mitral valve is normal in structure and function. There is no mitral regurgitation noted. No mitral valve stenosis. Tricuspid Valve Structurally normal tricuspid valve. No evidence of tricuspid regurgitation. Right ventricular systolic pressure is normal. Pulmonic Valve No evidence of stenosis. There is no pulmonic valve regurgitation. Arteries The aortic root is normal in size. Upper limit normal size ascending aorta. Pulmonary artery diameter is normal. Venous The inferior vena cava is normal in size, and collapses normally with respiration. Effusion There is no pericardial effusion. Left Ventricle IVSd: 1.06 cm LVIDd: 4.4 cm LVPWd: 1.03 cm LVIDs: 1.66 cm EDV(MOD-sp4): 43.3 ml LVLd ap4: 7.2 cm ESV(MOD-sp4): 16.6 ml LVLs ap4: 6.0 cm EDV(MOD-sp2): 50.4 ml LVLd ap2: 7.3 cm ESV(MOD-sp2): 15.8 ml LVLs ap2: 6.1 cm Right Ventricle TAPSE: 2.49 cm Aortic Valve LVOT diam: 1.94 cm LV V1 max: 84.5 cm/sec LV V1 max P.9 mmHg Ao max P.2 mmHg Ao V2 max: 152.0 cm/sec Tricuspid Valve TR max P.7 mmHg TR max sukh: 248.4 cm/sec Aorta Ao root diam: 2.9 cm Ao Sinus of Valsalva: 2.7 cm Ao Sinotubular Junction: 2.22 cm asc Aorta Diam: 3.6 cm Atria LA dimension: 3.5 cm Echocardiology Report Diastolic funtion Med Peak E' Sukh: 7.2 cm/sec Lat Peak E' Sukh: 9.2 cm/sec MV dec time: 0.23 sec MV E max sukh: 78.7 cm/sec MV A max sukh: 66.4 cm/sec Ao max P.2 mmHg Ao root area: 6.7 cm? Ao root diam: 2.9 cm Ao Sinus of Valsalva: 2.7 cm Ao Sinotubular Junction: 2.22 cm Ao V2 max: 152.0 cm/sec AV VR: 0.56 SUSSY(V,D): 1.65 cm? EDV(MOD-sp4): 43.3 ml EDV(Teich): 88.9 ml EF(MOD-sp4): 61.7 % EF(Teich): 91.1 % ESV(MOD-sp4): 16.6 ml ESV(Teich): 7.9 ml FS: 62.5 % IVC Diam: 1.63 cm IVSd: 1.06 cm LA dimension: 3.5 cm LV V1 max: 84.5 cm/sec LV V1 max P.9 mmHg LVIDd: 4.4 cm LVIDs: 1.66 cm LVLd ap4: 7.2 cm LVLs ap4: 6.0 cm LVOT area: 3.0 cm? LVOT diam: 1.94 cm LVPWd: 1.03 cm MV A max sukh: 66.4 cm/sec MV dec time: 0.23 sec MV E max sukh: 78.7 cm/sec MV E/A: 1.18 RAP systole: 3.0 mmHg RVDd: 3.2 cm RVIDd/LVIDd: 0.72 RVSP(TR): 27.7 mmHg SV(MOD-sp4): 26.7 ml TAPSE: 2.49 cm TR max P.7 mmHg TR max sukh: 248.4 cm/sec asc Aorta Diam: 3.6 cm E/E' Lat: 8.6 E/E' Med: 11.0 EDV(MOD-sp2): 50.4 ml EF (MOD-bp): 65.3 % EF(MOD-sp2): 68.7 % ESV(MOD-sp2): 15.8 ml LA Vol Index: 23.9 ml/m? Echocardiology Report Lat Peak E' Sukh: 9.2 cm/sec LVLd ap2: 7.3 cm LVLs ap2: 6.1 cm Med Peak E' Sukh: 7.2 cm/sec Electronically signed by: Forest Gonzalez MD 08/13/2023, 6: 49 PM FINAL REPORT Dictated: 08/13/2023 9:11 am Forest Gonzalez MD Signed (Electronic Signature): 08/13/2023 6:49 pm Signed by: Forest Gonzalez MD Transcribed by: [facility] Technologist: [facility]11-20-2023 Note HNO ID: [id number] Author: Elly Galicia MD Service: ? Author Type: Physician Type: Progress Notes Filed: 06/24/2023 3:12 PM Note Text: Endocrinology Clinic Visit Clinical Care Team: -Referring Provider for today's visit: No ref. provider found -Primary Care Provider: Neli Slater MD History of Present Illness: Patient presents with: Follow Up: Thyroid Dejah Dykes is a 52 year old female with arthritis, HTN, SAIMA, nephrolithiasis, acne, obesity class III who presents today for follow up of hypothyroidism. My final recommendations will be communicated back to the PCP by way of a copy of today's office notes. History from 05/2023 visit: Developed significant back and joint issues since Aug 2022, seeing back surgeon Also diagnosed with sleep apnea, now being treated Fatigue also developed over time with these joint pains, her PCP diagnosed with hypothyroidism. Also having significant hair fall, depression, weight gain, brain fog. No preceding illnesses. Significant leg swelling. Had COVID late 2019. On LT4 50mcg daily currently at least a month, maybe more (starting dose). Currently takes first thing in AM, with water, waits 30min at least before eating. Not on MVI or supplements. Not on biotin. No significant changes yet with her symptoms. Daughter was diagnosed with hypothyroidism recently, was told it's Kriss's. Not sure if there may be other family members that are not diagnosed. Exposures to: - Biotin- none - Amiodarone- none - [place]- none - Head/neck radiation- none Interval history: - Passed kidney stone last month - Taking levothyroxine 50mcg daily, timing appropriately-- helping a bit, joints feeling a bit better - Still having hair loss I have reviewed her medical, surgical, family and social history and have updated medication and allergy information in the computerized patient record. ROS: Answers submitted by the patient for this visit: Core Review of Systems (Submitted on 06/24/2023) Fever : No Night sweats: No Recent unintentional weight change: Yes Nasal Congestion: No Hearing Loss: No Vision Disturbance: No A cough: No Difficulty Breathing?: No Chest pain: No Irregular heartbeat: No Leg Swelling: Yes Nausea: No Diarrhea: No Black tarry stools: No Difficulty Urinating?: No Awaken at Night More Than Once to Urinate?: No Joint pain or stiffness: Yes Muscle aches: Yes Leg or Foot Discomfort at Night?: No A rash: No Dizziness: No Headaches: No Memory Loss: No Seizures: No All other systems reviewed and found to be negative except those mentioned in HPI PAST MEDICAL HISTORY Diagnosis Date Acne rosacea 02/01/2023 Acquired hypothyroidism 02/14/2023 Last Assessment AND Plan: Will continue current meds and see in one month Class 3 severe obesity with body mass index (BMI) of 40.0 to 44.9 in adult ([facility]) 02/01/2023 Essential hypertension 01/04/2023 Kidney stones 02/01/2023 Neuroma 08/22/2011 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 No pertinent surgical history. Current Outpatient Medications Medication Sig levothyroxine 50 mcg cap Take 50 mcg by mouth daily before breakfast. potassium chloride 20 mEq TbER Take 20 mEq by mouth once daily. bisoprolol-hydroCHLOROthiazide (ZIAC) 5-6.25 mg per tablet Take by mouth. zolpidem (AMBIEN) 10 mg ORAL Tab Take 1 tablet by mouth at bedtime as needed. for insomnia. montelukast (SINGULAIR) 10 mg ORAL tablet Take 1 tablet by mouth daily at bedtime. Minocycline 135 mg ORAL Tb24 Take by mouth. No current facility-administered medications for this visit. History reviewed. No pertinent family history. Social History Tobacco Use Smoking status: Never Substance Use Topics Alcohol use: Yes Comment: 4-5x/year Drug use: No Physical Exam 06/24/23 1430 BP: 143/78 BP Site: Left Arm BP Position: Sitting BP Cuff Size: Large Adult Pulse: 78 SpO2: 100% Weight: 119.3 kg (263 lb) There is no height or weight on file to calculate BMI. Last 3 Encounter Wt Readings: Date: Wt: 04/12/2011 104.8 kg (231 lb) General: She is a well-appearing female in no distress HEENT: atraumatic, sclera clear Neck:supple Lungs: no respiratory distress Cardiac: no visible edema Extremities: no cyanosis or clubbing Neurologic: alert and oriented Skin: no rash Musculoskeletal: normal range of motion Mood is relaxed, affect is appropriate. Procedure / Imaging / Lab Data: Pertinent procedure/imaging/lab data was reviewed/discussed with the patient today: Latest Reference Range AND Units 05/06/23 09:41 05/14/23 08:08 Sodium 136 - 144 mmol/L 141 Potassium 3.7 - 5.1 mmol/L 3.9 Chloride 97 - 105 mmol/L 104 CO2 22 - 30 mmol/L 26 (more content not included)...[facility] 06-24-2023 Instructions* Patient Instructions* Elly Galicia MD - 06/24/2023 3:08 PM EST - Lab recheck today, will let you know if we need to change the dose - Weight Management [facility] History of Present illness Narrative* Elly Galicia MD - 06/24/2023 2:40 PM EST Images from the original note were not included. Endocrinology Clinic Visit Clinical Care Team: -Referring Provider for today's visit: No ref. provider found -Primary Care Provider: Neli Slater MD History of Present Illness: Patient presents with: Follow Up: Thyroid Dejah Dykes is a 52 year old female with arthritis, HTN, SAIMA, nephrolithiasis, acne, obesity classIII who presents today for follow up of hypothyroidism. My final recommendations will be communicated back to the PCP by way of a copy of today's office notes. History from 05/2023 visit: Developed significant back and joint issues since Aug 2022, seeing back surgeon Also diagnosed with sleep apnea, now being treated Fatigue also developed over time with these joint pains, her PCP diagnosed with hypothyroidism. Also having significant hair fall, depression, weight gain, brain fog. No preceding illnesses. Significant leg swelling. Had COVID late 2019. On LT4 50mcg daily currently at least a month, maybe more (starting dose). Currently takes first thing in AM, with water, waits 30min at least before eating. Not on MVI or supplements. Not on biotin.No significant changes yet with her symptoms. Daughter was diagnosed with hypothyroidism recently, was told it's Kriss's. Not sure if there may be other family members that are not diagnosed. Exposures to: - Biotin- none - Amiodarone- none - [place]- none - Head/neck radiation- none Interval history: - Passed kidney stone last month - Taking levothyroxine 50mcg daily, timing appropriately-- helping a bit, joints feeling a bit better - Still having hair loss I have reviewed her medical, surgical, family and social history and have updated medication and allergy information in the computerized patient record. ROS: Answers submitted by the patient for this visit: Core Review of Systems (Submitted on 06/24/2023) Fever : No Night sweats: No Recent unintentional weight change: Yes Nasal Congestion: No Hearing Loss: No Vision Disturbance: No A cough: No Difficulty Breathing?: No Chest pain: No Irregular heartbeat: No Leg Swelling: Yes Nausea: No Diarrhea: No Black tarry stools: No Difficulty Urinating?: No Awaken at Night More Than Once to Urinate?: No Joint pain or stiffness: Yes Muscle aches: Yes Leg or Foot Discomfort at Night?: No A rash: No Dizziness: No Headaches: No Memory Loss: No Seizures: No All other systems reviewed and found to be negative except those mentioned in HPI PAST MEDICAL HISTORY Diagnosis Date Acne rosacea 02/01/2023 Acquired hypothyroidism 02/14/2023 Last Assessment & Plan: Will continue current meds and see in one month Class 3 severe obesity with body mass index (BMI) of 40.0 to 44.9 in adult (HCC) 02/01/2023 Essential hypertension 01/04/2023 Kidney stones 02/01/2023 Neuroma 08/22/2011 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 No pertinent surgical history. Current Outpatient Medications Medication Sig levothyroxine 50 mcg cap Take 50 mcg by mouth daily before breakfast. potassium chloride 20 mEq TbER Take 20 mEq by mouth once daily. bisoprolol-hydroCHLOROthiazide (ZIAC) 5-6.25 mg per tablet Take by mouth. zolpidem (AMBIEN) 10 mg ORAL Tab Take 1 tablet by mouth at bedtime as needed. for insomnia. montelukast (SINGULAIR) 10 mg ORAL tablet Take 1 tablet by mouth daily at bedtime. Minocycline 135 mg ORAL Tb24 Take by mouth. No current facility-administered medications for this visit. History reviewed. No pertinent family history. Social History Tobacco Use Smoking status: Never Substance Use Topics Alcohol use: Yes Comment: 4-5x/year Drug use: No Physical Exam 06/24/23 1430 BP: 143/78 BP Site: Left Arm BP Position: Sitting BP Cuff Size: Large Adult Pulse: 78 SpO2: 100% Weight: 119.3 kg (263 lb) There is no height or weight on file to calculate BMI. Last 3 Encounter Wt Readings: Date: Wt: 04/12/2011 104.8 kg (231 lb) General: She is a well-appearing female in no distress HEENT: atraumatic, sclera clear Neck:supple Lungs: no respiratory distress Cardiac: no visible edema Extremities: no cyanosis or clubbing Neurologic: alert and oriented Skin: no rash Musculoskeletal: normal range of motion Mood is relaxed, affect is appropriate. Procedure / Imaging / Lab Data: Pertinent procedure/imaging/lab data was reviewed/discussed with the patient today: Latest Reference Range & Units 05/06/23 09:41 05/14/23 08:08 Sodium 136 - 144 mmol/L 141 Potassium 3.7 - 5.1 mmol/L 3.9 Chloride 97 - 105 mmol/L 104 CO2 22 - 30 mmol/L 26 BUN 7 - 21 mg/dL 9 Creatinine 0.58 - 0.96 mg/dL 0.84 Glucose 74 - 99 mg/dL 104 (H) Calcium 8.5 - 10.2 mg/dL 9.4 Anion Gap 9 - 18 mmol/L 11 eGFR >=60 mL/min/1.73m 83 Patient Upright or Supine Upright Dexamethasone ng/dL 376.1 Free T4 0.9 - 1.7 ng/dL 1.3 TSH 0.270 - 4.200 mIU/L 1.590 Cortisol 4.8 - 19.5 ug/dL 0.5 (L) Aldosterone 0.0 - <35.4 ng/dL 7.6 Direct Renin 3.6 - 81.6 pg/mL 11.8 (H): Data is abnormally high (L): Data is abnormally low THYROID [facility] 02/01/2023 Component TSH Component 02/01/2023 TSH 5.95 High Outside thyroid US 02/2023: Exam Date/Time: 02/18/2023 12:04 EDT Reason for Exam: E03.9 Report IMPRESSION: TI-RADS CATEGORY 1: BENIGN. NO BIOPSY REQUIRED. RIGHT LOBE. TI-RADS CATEGORY 2: NOT SUSPICIOUS. NO BIOPSY REQUIRED. LEFT LOBE, ANTERIOR MIDPOLE. TI-RADS CATEGORY 2: NOT SUSPICIOUS. NO BIOPSY REQUIRED. LEFT LOBE, MID TO UPPER POLE. THYROID SONOGRAPHY WITH COLOR FLOW. CLINICAL HISTORY: E03.9 COMPARISONS: None available. FINDINGS: Biplanar images were obtained. The right lobe measures 3.8 cm x 1.4 cm x 2.0 cm with a volume of 5.4 cm3. The left lobe measures 3.7 cm x 1.2 cm x 1.7 cm with a volume of 3.9 cm3. The isthmus measures 0.3 cm. In the right lobe, a 4 x 3 x 4 mm nearly completely cystic, anechoic, wider than tall, smoothly marginated, noncalcified nodule is identified. In the left lobe, anterior midpole, a 1.0 x 0.8 x 1.1 cm mixed cystic and solid, isoechoic, wider than tall, smoothly marginated, noncalcified nodule is identified. In the left lobe, anterior mid to upper pole, an 8 x 6 x 9 mm mixed cystic and solid, isoechoic, wider than tall, smoothly marginated, noncalcified nodule is identified. Ordering Provider: Lenora SANTOS FINAL REPORT Dictated: 02/18/2023 4:14 pm Tobi Lezama MD Signed (Electronic Signature): 02/18/2023 4:14 pm Signed by: Tobi Lezama MD Transcribed by: JOSE Technologist: CT A/P 03/2022: The pancreas, spleen, adrenal glands, unopacified bowel loops, and additional members of the pelvis are unremarkable. The visualized lung bases are clear. Impression & Plan Dejah Dykes is a 52 year old female who is seen in clinic today for hypothyroidism and obesity class III. E03.9 Acquired hypothyroidism (primary encounter diagnosis) Comment: TFTs ordered today for dose adjustment. Discussed likely keeping same dose for now and addressing other factors like weight, SAIMA that could be contributing to symptoms E66.01, Z68.41 Class 3 severe obesity with serious comorbidity and body mass index (BMI) of 40.0 to44.9 in adult, unspecified obesity type (HCC) Comment: Endocrine medical weight management referral placed for discussion of options Return in about 6 months (around 12/23/2023). Elly Galicia MD [facility]* Encounter Date Diagnosis Assessment Notes Treatment Notes Treatment Clinical Notes May, Lumbar back pain (ICD-10 - M54.50) [place] Other 10-02-2023 NoteHNO ID: [id number] Author: Elly Galicia MD Service: ? Author Type: Physician Type: Progress Notes Filed: 05/06/2023 10:10 AM Note Text: Endocrinology Clinic Visit Clinical Care Team: -Referring Provider for today's visit: No ref. provider found -Primary Care Provider: Neli Slater MD History of Present Illness: Patient presents with: New Patient Evaluation: Thyroid concerns, joint pain Dejah Dykes is a 52 year old female with arthritis, HTN, SAIMA, nephrolithiasis, acne, obesity class III who presents today for evaluation of hypothyroidism. Patient presents as a new consultation from No ref. provider found. My final recommendations will be communicated back to the PCP by way of a copy of today's office notes. Developed significant back and joint issues since Aug 2022, seeing back surgeon Also diagnosed with sleep apnea, now being treated Fatigue also developed over time with these joint pains, her PCP diagnosed with hypothyroidism. Also having significant hair fall, depression, weight gain, brain fog. No preceding illnesses. Significant leg swelling. Had COVID late 2019. On LT4 50mcg daily currently at least a month, maybe more (starting dose). Currently takes first thing in AM, with water, waits 30min at least before eating. Not on MVI or supplements. Not on biotin. No significant changes yet with her symptoms. Daughter was diagnosed with hypothyroidism recently, was told it's Kriss's. Not sure if there may be other family members that are not diagnosed. Exposures to: - Biotin- none - Amiodarone- none - [place]- none - Head/neck radiation- none I have reviewed her medical, surgical, family and social history and have updated medication and allergy information in the computerized patient record. ROS: Answers submitted by the patient for this visit: Endocrine Review of Systems (Submitted on 05/05/2023) Fatigue: Yes Night Sweats: Yes Recent Unintentional Weight Change: Yes- 50# weight gain over past few months, continuing to gain over time. Was previously around 230# and was able to come down to 217# Skin Color Changes: No Post-Nasal Drip: No Thyroid Pain (lower neck): No Trouble Swallowing: No Vision Disturbance: Yes Chest Pain: No Leg Swelling: Yes Blood Clots?: No Leg Pain while walking?: Yes Difficulty Breathing?: Yes Heartburn: No Nausea: No Vomiting?: No Diarrhea: No Constipation: No Abdominal Pain: No Bone Pain?: No Muscle Aches: Yes Muscle Weakness: Yes Joint Pain or Stiffness: Yes Headaches: No Dizziness: Yes Numbness?: Yes Urgency to Urinate?: No Increased Urination?: No Slow or Small Urine Stream?: No Have your menstrual cycles stopped?: Yes Flushing?: Yes Hot Flashes?: Yes Increased Thirst: Yes Change in Body Hair?: Yes Cold Intolerance: Yes Heat Intolerance?: Yes No bruising Some new stretch nieto All other systems reviewed and found to be negative except those mentioned in HPI PAST MEDICAL HISTORY Diagnosis Date Acne rosacea 02/01/2023 Acquired hypothyroidism 02/14/2023 Last Assessment AND Plan: Will continue current meds and see in one month Class 3 severe obesity with body mass index (BMI) of 40.0 to 44.9 in adult ([facility]) 02/01/2023 Essential hypertension 01/04/2023 Kidney stones 02/01/2023 Neuroma 08/22/2011 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 No pertinent surgical history. Current Outpatient Medications Medication Sig levothyroxine 50 mcg cap Take 50 mcg by mouth daily before breakfast. bisoprolol-hydroCHLOROthiazide (ZIAC) 5-6.25 mg per tablet Take by mouth. zolpidem (AMBIEN) 10 mg ORAL Tab Take 1 tablet by mouth at bedtime as needed. for insomnia. montelukast (SINGULAIR) 10 mg ORAL tablet Take 1 tablet by mouth daily at bedtime. Minocycline 135 mg ORAL Tb24 Take by mouth. potassium chloride 20 mEq TbER Take 20 mEq by mouth once daily. dexAMETHasone (DECADRON) 1 mg tablet Take 1 tablet by mouth one time only for 1 dose. Take at 11PM the night before AM labs 7-8am No current facility-administered medications for this visit. History reviewed. No pertinent family history. Social History Tobacco Use Smoking status: Never Substance Use Topics Alcohol use: Yes Comment: 4-5x/year Drug use: No Physical Exam 05/06/23 0802 BP: 112/58 BP Site: Left Arm BP Position: Sitting BP Cuff Size: Large Adult Pulse: (!) 59 SpO2: 100% Weight: 119.3 kg (263 lb) There is no height or weight on file to calculate BMI. Last 3 Encounter Wt Readings: Date: Wt: 04/12/2011 104.8 kg (231 lb) Constitutional: She is well-developed, well-nourished Head: Normocephalic. Eyes: Extraocular movements intact. No lid lag or stare. No scleral (more content not included)...[facility] NoteHistory of Present Illness Here for evaluation for possible obstructive sleep apnea. The patient reports that she was told that she snores at night but was not told that she stops breathing. She does complain of significant fatigue and daytime sleepiness and feels that her sleep is quite disrupted. She reports that her weight has been stable over the past few years. Review of Systems Constitutional: no fever, no chills, no sweats, no weakness Skin: no Jaundice, no rash, no lesions, no petechiae ENT: no ear pain, no sore throat, no congestion, no hoarseness Respiratory: Denies shortness of breath, cough or wheezing Cardiovascular: no chest pain, no palpitations, no edema Gastrointestinal: no nausea, no vomiting, no diarrhea, no GI bleeding Genitourinary: no dysuria, no hematuria, no discharge, no pain Musculoskeletal: no back pain, no trauma Neurologic: no headache, no dizziness, no numbness, no weakness Psychiatric: no irritability, no mood swings/depression. Heme/Lymph: no bleeding tendency, no bruising tendency, no petechiae, no swollen nodes Allergy/Immunologic: no seasonal allergies, no food allergies, no recurrent infections, no impairedimmunity Additional ROS info: Except as noted in the above Review of Systems and in the History of Present Illness all other systems have been reviewed and are negative or noncontributory. Physical Exam General: Awake, alert, in no acute distress Skin: warm, dry Head: no trauma, normocephalic. Prolonged soft palate Neck: Trachea midline, no adenopathy, no tenderness Eye: normal conjunctiva, sclera clear ENMT: TM's clear, oral mucosa moist, no pharyngeal erythema or exudate Cardiovascular: regular rate and rhythm, normal peripheral perfusion Respiratory: Good breath sounds to both lung herrera without wheezing or crackles. Gastrointestinal: soft, non distended, no tenderness, no guarding. Back: No tenderness, Normal ROM, Normal alignment. Extremities: no deformity, no trauma Neurological: oriented x 4, LOC appropriate for age, CN II-XII intact, motor strength equal & normal bilaterally, sensation equal & normal bilaterally, speech normal Psychiatric: cooperative, affect appropriate for age, normal judgement, normal psychiatric thoughts. Assessment/Plan 1. SAIMA (obstructive sleep apnea) (G47.33: Obstructive sleep apnea (adult) (pediatric)) Highly likely given the patient's symptoms, physical examination and risk factors. The etiology of obstructive sleep apnea and methods of diagnoses and treatment were discussed with the patient in details. The patient is agreeable to testing and treatment if clinically indicated. I will arrange for sleepstudy and see her back after her testing is completed. She will call me back in the meantime if anyissues. Ordered: Sleep Study Baseline Follow-up With When Contact Information Donald ARCOS, Juan Hodge, [facility], [place] [address] [facility] [place] [address]- Additional Instructions: after his testing is completed Problem List/Past Medical History Ongoing Acne rosacea Class 3 severe obesity with body mass index (BMI) of 40.0 to 44.9 in adult Frequent UTI Influenza vaccination up to date Kidney stones Non-tobacco user Osteochondritis dissecans Urine frequency Historical DVT Kidney stones Procedure/Surgical History Arthroscopy of shoulder (06/22/2020), Arthroscopy of knee (12/24/2018), Laminectomy (07/22/2017), left extracorporeal shockwave lithotripsy (10/08/2014), cystoscopy, left retrograde ureteropyelogram,and double-J stent insertion (10/05/2014), robotic-assisted hysterectomy with bilateral salpingectomy (04/09/2014), right foot surgery (12/30/2009), Appendectomy, Arthroscopy of shoulder, Bilateral tubal ligation, Cholecystectomy, Ligament repair. Medications Ambien 10 mg Tab, 10 mg= 1 tab(s), Oral, Once a day (at bedtime), PRN, 1 refills Cipro 500 mg Tab, See Instructions Estrace 0.1 mg/g Cream, See Instructions, 5 refills meloxicam 15 mg oral tablet, 15 mg= 1 tab(s), Oral, Daily minocycline 100 mg Cap, 100 mg, Oral, Daily, 1 refills potassium chloride 10 mEq ER Tab, 10 mEq= 1 tab(s), Oral, BID, Not taking Singulair, 10 mg, Oral, qPM Ziac 5 mg-6.25 mg oral tablet, 1 tab(s), Oral, Daily, 1 refills, Not taking Allergies Vicodin (Hallucinations) Social History Alcohol - Denies Alcohol Use, 09/08/2019 Substance Abuse - Denies Substance Abuse, 09/08/2019 Tobacco - Denies Tobacco Use, 09/08/2019 Never (less than 100 in lifetime) Tobacco Use:. Never Smokeless Tobacco Use:., 03/28/2022 Family History ALS: Grandparent. Cataract: Mother. Hypertension: Father. Metastatic cancer: Father. Immunizations Vaccine Date Status Comments SARS-CoV-2 (COVID-19) mRNA BNT-162b2 vax 11/18/2020 Given Prophylaxis SARS-CoV-2 (COVID-19) mRNA BNT-162b2 vax 10/21/2020 Given Prophylaxis influenza virus vaccine, inactivated 04/30/2019 Recorded diphtheria/pertussis, camelia (more content not included)...[facility]:Result Comment: Electronically Signed By: Donald ARCOS, Juan Hodge\.br\Date and Time Signed: 04/05/23 10:31 EDTOther Comment: Put under wrong [id number] Hospital Discharge instructions Follow Up Care 03/13/2023 13:01:01 With:Donald ARCOS, Juan Hodge, PUL, [place] Address: [address] [place] [address] Sleep [facility] [place] [id number] When:1 year [facility]08-24-2022 Evaluation + Plan note Diagnostic Tests Pending * UTI ([facility]) 03/28/22 [facility] 08-24-2022 Hospital Discharge instructions Patient Education 03/28/2022 10:11:51 Kidney Stones, Rtjf-es-Hsuc Kidney Stones Kidney stones are rock-like masses that form inside of the kidneys. Kidneys are organs that make pee (urine). A kidney stone may move into other parts of the urinary tract, including: The tubes that connect the kidneys to the bladder (ureters). The bladder. The tube that carries urine out of the body (urethra). Kidney stones can cause very bad pain and can block the flow of pee. The stone usually leaves your body (passes) through your pee. You may need to have a doctor take out the stone. What are the causes? Kidney stones may be caused by: A condition in which certain glands make too much parathyroid hormone (primary hyperparathyroidism). A buildup of a type of crystals in the bladder made of a chemical called uric acid. The body makes uric acid when you eat certain foods. Narrowing (stricture) of one or both of the ureters. A kidney blockage that you were born with. Past surgery on the kidney or the ureters, such as gastric bypass surgery. What increases the risk? You are more likely to develop this condition if: You have had a kidney stone in the past. You have a family history of kidney stones. You do not drink enough water. You eat a diet that is high in protein, salt (sodium), or sugar. You are overweight or very overweight (obese). What are the signs or symptoms? Symptoms of a kidney stone may include: Pain in the side of the belly, right below the ribs (flank pain). Pain usually spreads (radiates) to the groin. Needing to pee often or right away (urgently). Pain when going pee (urinating). Blood in your pee (hematuria). Feeling like you may vomit (nauseous). Vomiting. Fever and chills. How is this treated? Treatment depends on the size, location, and makeup of the kidney stones. The stones will often pass out of the body through peeing. You may need to: Drink more fluid to help pass the stone. In some cases, you may be given fluids through an IV tube put into one of your veins at the hospital. Take medicine for pain. Make changes in your diet to help keep kidney stones from coming back. Sometimes, medical procedures are needed to remove a kidney stone. This may involve: A procedure to break up kidney stones using a beam of light (laser) or shock waves. Surgery to remove the kidney stones. Follow these instructions at home: Medicines Take mlkd-ior-uylcgvq and prescription medicines only as told by your doctor. Ask your doctor if the medicine prescribed to you requires you to avoid driving or using heavy machinery. Eating and drinking Drink enough fluid to keep your pee pale yellow. You may be told to drink at least 8 10 glasses of water each day. This will help you pass the stone. If told by your doctor, change your diet. This may include: ?Limiting how much salt you eat. ?Eating more fruits and vegetables. ?Limiting how much meat, poultry, fish, and eggs you eat. Follow instructions from your doctor about eating or drinking restrictions. General instructions Collect pee samples as told by your doctor. You may need to collect a pee sample: ?24 hours after a stone comes out. ?8 12 weeks after a stone comes out, and every 6 12 months after that. Strain your pee every time you pee (urinate), for as long as told. Use the strainer that your doctor recommends. Do not throw out the stone. Keep it so that it can be tested by your doctor. Keep all follow-up visits as told by your doctor. This is important. You may need follow-up tests. How is this prevented? To prevent another kidney stone: Drink enough fluid to keep your pee pale yellow. This is the best way to prevent kidney stones. Eat healthy foods. Avoid certain foods as told by your doctor. You may be told to eat less protein. Stay at a healthy weight. Where to find more information National Kidney Foundation (NKF): www.kidney.org [facility] (UCF): www.urologyhealth.org Contact a doctor if: You have pain that gets worse or does not get better with medicine. Get help right away if: You have a fever or chills. You get very bad pain. You get new pain in your belly (abdomen). You pass out (faint). You cannot pee. Summary Kidney stones are rock-like masses that form inside of the kidneys. Kidney stones can cause very bad pain and can block the flow of pee. The stones will often pass out of the body through peeing. Drink enough fluid to keep your pee pale yellow. This information is not intended to replace advice given to you by your health care provider. Make sure you discuss any questions you have with your health care provider. Document Released: 01/07/2009 Document Revised: 12/08/2019 Document Reviewed: 12/08/2019 Elsevier Patient Education 2019 [employer] [facility] 05-13-2022 Hospital Discharge instructions Patient Education 12/15/2021 17:22:14 Paresthesia, Cxum-hu-Jdbc Paresthesia Paresthesia is a burning or prickling feeling. This feeling can happen in any part of the body. It often happens in the hands, arms, legs, or feet. Usually, it is not painful. In most cases, the feeling goes away in a short time and is not a sign of a serious problem. If you have paresthesia that lasts a long time, you may need to be seen by your doctor. Follow these instructions at home: Alcohol use Do not drink alcohol if: ?Your doctor tells you not to drink. ?You are , may be , or are planning to become . If you drink alcohol: ?Limit how much you use to: ?0 1 drink a day for women. ?0 2 drinks a day for men. ?Be aware of how much alcohol is in your drink. In the [place] one drink equals one 12 oz bottle of beer (355 mL), one 5 oz glass of wine (148 mL), or one 1 oz glass of hard liquor (44 mL). Nutrition Eat a healthy diet. This includes: ?Eating foods that have a lot of fiber in them, such as fresh fruits and vegetables, whole grains, and beans. ?Limiting foods that have a lot of fat and processed sugars in them, such as fried or sweet foods. General instructions Take ovfm-xqn-gmanfxi and prescription medicines only as told by your doctor. Do not use any products that have nicotine or tobacco in them, such as cigarettes and e-cigarettes.If you need help quitting, ask your doctor. If you have diabetes, work with your doctor to make sure your blood sugar stays in a healthy range. If your feet feel numb: ?Check for redness, warmth, and swelling every day. ?Wear padded socks and comfortable shoes. These help protect your feet. Keep all follow-up visits as told by your doctor. This is important. Contact a doctor if: You have paresthesia that gets worse or does not go away. Your burning or prickling feeling gets worse when you walk. You have pain or cramps. You feel dizzy. You have a rash. Get help right away if you: Feel weak. Have trouble walking or moving. Have problems speaking, understanding, or seeing. Feel confused. Cannot control when you pee (urinate) or poop (have a bowel movement). Lose feeling (have numbness) after an injury. Have new weakness in an arm or leg. Pass out (faint). Summary Paresthesia is a burning or prickling feeling. It often happens in the hands, arms, legs, or feet. In most cases, the feeling goes away in a short time and is not a sign of a serious problem. If you have paresthesia that lasts a long time, you may need to be seen by your doctor. This information is not intended to replace advice given to you by your health care provider. Make sure you discuss any questions you have with your health care provider. Document Released: 2009 Document Revised: 08/17/2019 Document Reviewed: 07/31/2018 [employer] Patient Education 2020 [employer]. 12/15/2021 17:22:14 Spondylolysis Spondylolysis Spondylolysis is a small break or crack (stress fracture) in a bone in the spine (vertebra) in the lower back (lumbar spine). The stress fracture occurs on the bony mass between and behind the vertebra. Spondylolysis may be caused by an injury (trauma) or by overuse. Since the lower back is almost always under pressure from daily living, this stress fracture usually does not heal normally. Spondylolysis may eventually cause one vertebra to slip forward and out ofplace (spondylolisthesis). What are the causes? This condition may be caused by: Trauma, such as a fall. Excessive wear and tear. This is often a result of doing sports or physical activities that involverepetitive overstretching (hyperextension) and rotation of the spine. What increases the risk? You are more likely to develop this condition if you have: ?A family history of this condition. ?An inward curvature of your spine (lordosis). ?A condition that affects your spine, such as spina bifida. You are more likely to develop this condition if you participate in: Gymnastics. Dance. Football. Wrestling. Martial arts. Weight lifting. Tennis. Swimming. What are the signs or symptoms? Symptoms of this condition may include: Long-lasting (chronic) pain in the lower back. Stiffness in the back or legs. Tightness in the hamstring muscles, which are in the backs of the thighs. In some cases, there may be no symptoms of this condition. How is this diagnosed? This condition may be diagnosed based on: Your symptoms. Your medical history. A physical exam. Imaging tests, such as: ?X-rays. ?CT scan. ?MRI. How is this treated? This condition may be treated by: Resting. You may be asked to avoid or modify activities that put strain on your back until your symptoms improve. Medicines to help relieve pain. NSAIDs to help reduce swelling and discomfort. Injections of medicine (cortisone) in your back. These injections can help to relieve pain and numbness. A brace to stabilize and support your back. Physical therapy. You may work with an occupational therapist or physical therapist who can teach you how to reduce pressure on your back while you do everyday activities. Surgery. This may be needed if you have: ?A severe injury. ?Pain that lasts for more than 6 months. ?Numbness in your pelvic region. ?Changes in control of your stool or urine. Follow these instructions at home: Medicines Take jiry-ylg-xnvzfxr and prescription medicines only as told by your health care provider. Ask your health care provider if the medicine prescribed to you: ?Requires you to avoid driving or using heavy machinery. ?Can cause constipation. You may need to take these actions to prevent or treat constipation: ?Drink enough fluid to keep your urine pale yellow. ?Take ylfc-fct-yeostor or prescription medicines. ?Eat foods that are high in fiber, such as beans, whole grains, and fresh fruits and vegetables. ?Limit foods that are high in fat and processed sugars, such as fried or sweet foods. If you have a brace: Wear the brace as told by your health care provider. Remove it only as told by your health care provider. Keep the brace clean. If the brace is not waterproof: ?Do not let it get wet. ?Cover it with a watertight covering when you take a bath or a shower. Activity Rest and return to your normal activities as told by your health care provider. Ask your health care provider what activities are safe for you. Ask your health care provider when it is safe to drive if you have a back brace. Work with a physical therapist to make a safe exercise program, as recommended by your health care provider. Do exercises as told by your physical therapist. This may include exercises to strengthen your back and abdominal muscles (core exercises). Managing pain, stiffness, and swelling If directed, put ice on the affected area. ?If you have a removable brace, remove it as told by your health care provider. ?Put ice in a plastic bag. ?Place a towel between your skin and the bag. ?Leave the ice on for 20 minutes, 2 3 times a day. If directed, apply heat to the affected area as often as told by your health care provider. Use theheat source that your health care provider recommends, such as a moist heat pack or a heating pad. ?If you have a removable brace, remove it as told by your health care provider. ?Place a towel between your skin and the heat source. ?Leave the heat on for 20 30 minutes. ?Remove the heat if your skin turns bright red. This is especially important if you are unable to feel pain, heat, or cold. You may have a greater risk of getting burned. General instructions Do not use any products that contain nicotine or tobacco, such as cigarettes, e- cigarettes, and chewing tobacco. These can delay bone healing. If you need help quitting, ask your health care provider. Maintain a healthy weight. Extra weight puts stress on your back. Keep all follow-up visits as told by your health care provider. This is important. Contact a health care provider if: You have pain that gets worse or does not get better. Get help right away if: You have severe back pain. You have changes in control of your stool or urine. You develop weakness or numbness in your legs. You are unable to stand or walk. Summary Spondylolysis is a small break or crack (stress fracture) in a bone in the spine (vertebra) in the lower back (lumbar spine). This condition may be treated by resting, medicines, physical therapy, wearing a brace, or surgery. Rest and return to your normal activities as told by your health care provider. Ask your health care provider what activities are safe for you. Contact a health care provider if you have pain that gets worse or does not get better. This information is not intended to replace advice given to you by your health care provider. Make sure you discuss any questions you have with your health care provider. Document Released: 07/22/2006 Document Revised: 11/12/2019 Document Reviewed: 02/24/2019 [employer] Patient Education 2020 [employer] 12/15/2021 17:22:14 Hypokalemia Hypokalemia Hypokalemia means that the amount of potassium in the blood is lower than normal. Potassium is a chemical (electrolyte) that helps regulate the amount of fluid in the body. It also stimulates muscle tightening (contraction) and helps nerves work properly. Normally, most of the body's potassium is inside cells, and only a very small amount is in the blood. Because the amount in the blood is so small, minor changes to potassium levels in the blood can be life-threatening. What are the causes? This condition may be caused by: Antibiotic medicine. Diarrhea or vomiting. Taking too much of a medicine that helps you have a bowel movement (laxative)can cause diarrhea and lead to hypokalemia. Chronic kidney disease (CKD). Medicines that help the body get rid of excess fluid (diuretics). Eating disorders, such as bulimia. Low magnesium levels in the body. Sweating a lot. What are the signs or symptoms? Symptoms of this condition include: Weakness. Constipation. Fatigue. Muscle cramps. Mental confusion. Skipped heartbeats or irregular heartbeat (palpitations). Tingling or numbness. How is this diagnosed? This condition is diagnosed with a blood test. How is this treated? This condition may be treated by: Taking potassium supplements by mouth. Adjusting the medicines that you take. Eating more foods that contain a lot of potassium. If your potassium level is very low, you may need to get potassium through an IV and be monitored in the hospital. Follow these instructions at home: Take dpdy-vzj-iqyytrh and prescription medicines only as told by your health care provider. This includes vitamins and supplements. Eat a healthy diet. A healthy diet includes fresh fruits and vegetables, whole grains, healthy fats, and lean proteins. If instructed, eat more foods that contain a lot of potassium. This includes: ?Nuts, such as peanuts and pistachios. ?Seeds, such as sunflower seeds and pumpkin seeds. ?Peas, lentils, and banks beans. ?Whole grain and bran cereals and breads. ?Fresh fruits and vegetables, such as apricots, avocado, bananas, cantaloupe, kiwi, oranges, tomatoes, asparagus, and potatoes. ?[place] juice. ?Tomato juice. ?Red meats. ?Yogurt. Keep all follow-up visits as told by your health care provider. This is important. Contact a health care provider if you: Have weakness that gets worse. Feel your heart pounding or racing. Vomit. Have diarrhea. Have diabetes (diabetes mellitus) and you have trouble keeping your blood sugar (glucose) in your target range. Get help right away if you: Have chest pain. Have shortness of breath. Have vomiting or diarrhea that lasts for more than 2 days. Faint. Summary Hypokalemia means that the amount of potassium in the blood is lower than normal. This condition is diagnosed with a blood test. Hypokalemia may be treated by taking potassium supplements, adjusting the medicines that you take, or eating more foods that are high in potassium. If your potassium level is very low, you may need to get potassium through an IV and be monitored in the hospital. This information is not intended to replace advice given to you by your health care provider. Make sure you discuss any questions you have with your health care provider. Document Released: 07/22/2006 Document Revised: 03/04/2019 Document Reviewed: 03/04/2019 [employer] Patient Education 2020 [employer]. Follow Up Care 12/15/2021 12:44:44 With:Lenora SANTOS Address: [address] [place] [id number] Business (1) When:12/18/2021 16:02:07 [facility] N[facility]* Chief Complaint follow up liver biop sy k75.[address] [facility] for [facility] Fatty liver Metabolic dysfunction-associated steatohepatitis (MASH) [facility] Work Phone: Chief complaint+Reason for visit Narrative* [facility] [facility] BMI 40.0-44.9, adult Hypertension Hypothyroidism Metabolic dysfunction-associated steatohepatitis (MASH) Pre-diabetes Sleep apnea [facility] Work Phone: Chief complaint+Reason for visit Narrative* Chief [facility]75.[address] [id number] Reason for Visit BMI 40.0-44.9, adult Hypertension Hypothyroidism Metabolic dysfunction-associated steatohepatitis (MASH) Pre-diabetes Sleep apnea [facility] Work Phone: Evaluation + Plan note No data available for this section [facility] Future Appointments Appointment Date:06/06/2022 01:00:00 PM Scheduled Provider:RAJNI MORA PA-C Location:[facility] Appointment Type:URO [facility] Future Appointments Appointment Date:09/12/2023 01:30:00 PM Scheduled Provider:Forest Gonzalez MD [facility] Type:Cardiology Follow Up (FT) Future Scheduled Tests Radiology* Echo Transthoracic Complete 08/02/23 * US LE Venous Duplex Bilateral 08/02/23 [facility] Future Appointments Appointment Date:08/23/2023 07:15:00 AM Scheduled Provider: [facility] Appoint[facility] Type:MA Screen (FT) Appointment Date:09/12/2023 01:30:00 PM Scheduled Provider:Forest Gonzalez MD [facility] Type:Cardiology Follow Up (FT) Future Scheduled Tests Radiology* MA Mamm Screen w/CAD if perf and 3D [place] 08/23/23 [facility] Future Appointments Appointment Date:09/12/2023 01:30:00 PM Scheduled Provider:Forest Gonzalez MD [facility] Type:Cardiology Follow Up (FT) Appointment Date:09/16/2023 09:00:00 AM Scheduled Provider:Hu Davis DO Location[facility] [place] Appointment Type:Pain Management - New (FT) [facility] Future Appointments Appointment Date:09/16/2023 09:00:00 AM Scheduled Provider:Hu Davis DO Location[facility] [place] Appointment Type:Pain Management - New (FT) [facility] Future Appointments Appointment Date:10/17/2023 08:30:00 AM Scheduled Provider:Hu Davis DO Location[facility] [place] Appointment Type:Pain Management - New (FT) [facility] noteNo assessment information available [facility] Work Phone: Evaluation note* Diagnosis Acquired hypothyroidism- Primary Unspecified hypothyroidism Class 3 severe obesity with serious comorbidity and body mass index (BMI) of 40.0 to 44.9 in adult, unspecified obesity type (HCC) documented in this encounter [facility] note* Diagnosis Onset Date Resolution Status Encounter for screening colonoscopy acute Hepatic steatosis acute [facility] Work Phone: Evaluation note* Diagnosis Primary insomnia Persistent disorder of initiating or maintaining sleep documented in this encounter [facility] note* Diagnosis Class 3 severe obesity with serious comorbidity and body mass index (BMI) of 40.0 to 44.9 in adult, unspecified obesity type (HCC) documented in this encounter [facility] note* Diagnosis Onset Date Resolution Status Encounter for screening colonoscopy acute Hepatic steatosis acute Hepatic steatosis acute [facility] Work Phone: Evaluation note* Diagnosis Class 3 severe obesity with serious comorbidity and body mass index (BMI) of 40.0 to 44.9 in adult, unspecified obesity type (HCC)- Primary documented in this encounter [facility] note* Diagnosis Onset Date Resolution Status Hepatic steatosis acute Fatty liver acute Metabolic dysfunction-associated steatohepatitis (MASH ) acute [facility] Work Phone: History general Narrative - Reported* Type Description Date Medical History Hypertension Medical History kidney stones Medical History obesity Medical History thyroid disease Surgical History cholecystectomy Surgical History Lumbar Decompression with fusio n L5-S1 Surgical History ankle surgery Surgical History hysterectomy Surgical History shoulder surgery Hospitalization History see [place] [facility] [email or web address] Other Hospital Discharge instructions No data available for this section [facility] Additional Instructions Follow-up with your primary care doctor Return [facility] ED if develop worsening [facility] Phone: Hospital Discharge instructionsAmbulatory Orders* Referral to Weight Management Time Frame: 12/24/23, Location: None Selected [facility] Work Phone: Progress note No data available for this section [facility] Summary Purpose Family History No Family History Records Found Relationship Condition Age at Onset Recorded Date/T latesha Not Specified Chronic obstructive pulmonary disease Un known father Malignant neoplasm Unknown Hypertension Unknown Not Specified Malignant neoplasm Unknown Relationship Condition Age at Onset Recorded Date/T latesha mother Chronic obstructive pulmonary disease Unknown father Malignant neoplasm Unknown Hypertension Unknown maternal grandfather Malignant neoplasm Unknown Advance Directives No Advanced Directives Records Found Advance Directive Response Recorded Date/ Time Advance Directives No April 02, 2017 6:02am Advance Directive Response Recorded Date/ Time Advance Directives No April 02, 2017 5:02am Chief Complaint and Reason for Visit Chief Complaint SOB, weakness, legs swelling Chief Complaint rt hip pain Chief Complaint rt hip pain FATTY LIVER Reason for Visit Encounter for screen ing colonoscopy Hepatic steatosis Chief Complaint rt hip pain FATTY LIVER k76.0 fatty liver Reason for Visit Encounter for screen ing colonoscopy Hepatic steatosis Chief Complaint rt hip pain FATTY LIVER k76.0 fatty liver follow up fibroscan Reason for Visit Encounter for screen ing colonoscopy Hepatic steatosis Hepatic steatosis Chief Complaint rt hip pain FATTY LIVER k76.0 fatty liver follow up fibroscan Knee Pain Reason for Visit Encounter for screen ing colonoscopy Hepatic steatosis Hepatic steatosis Chief Complaint FATTY LIVER k76.0 fatty liver follow up fibroscan Knee Pain K76.0 Reason for Visit Encounter for screen ing colonoscopy Hepatic steatosis Hepatic steatosis Chief Complaint follow up fibroscan Knee Pain K76.0 follow up liver biopsy Reason for Visit Hepatic steatosis Fatty liver Metabolic dysfunction-associated steatohepatitis (MASH) Chief Complaint follow up liver biop sy k75.81 Reason for Visit Fatty liver Metabolic dysfunction-associated steatohepatitis (MASH) Reason for Referral Specialty Diagnoses / Procedures Referred By Diallo t Referred To Contact Diagnoses Class 3 severe obesity with serious comorbidity and body mass index (BMI) of 40.0 to 44.9 in adult, unspecified obesity type (HCC) Procedures ENDOCRINE MEDICAL WEIGHT MANAGEMENT OFFICE/OUTPATIENT [facility] 60-74 MINUTES Elly Galicia MD [address] [phone] Referral ID Status Reason Start Date Expiration Date Visits Requested Visits Authorized [id number] Pending Review PCP Requested Referral 3 06/23/2024 1 1 Additional Source Comments INFORMATION SOURCE (unrecogn ized section and content) DATE CREATED AUTHOR 09/14/2019 [facility] DATE CREATED AUTHOR AUTHOR'S ORGANIZ ATION 03/28/2022 [place] [facility] DATE CREATED AUTHOR AUTHOR'S ORGANIZ ATION 12/06/2023 [facility] DATE CREATED AUTHOR AUTHOR'S ORGANIZ ATION 12/19/2023 [facility] DATE CREATED AUTHOR AUTHOR'S ORGANIZ ATION 03/19/2024 [place] [facility] DATE CREATED AUTHOR AUTHOR'S ORGANIZ ATION 03/30/2024 [facility] Care Team (unrecognized sect ion and content) Team Status: Active Member Role Status Dates Lenora Santos PA-C Primary Care Provider Active Team Status: Inactive Member Role Status Dates Lenora Santos PA-C Primary Care Provider Active Regino Metcalf DO Emergency Provider Active 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 Start Date End Date Neli Slater MD PCP - General Family Medicine 03/19/11 Lenora Santos [place] [address] Referring Family Medicine 03/18/23 Team Status: Inactive Member Role Status Dates Lenora Santos PA-C Primary Care Provider Active Allan Dimas PA-C Emergency Provider Active 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 Start Date End Date Renetta Chavarria MD [address] [place] [address] PCP - General Family Medicine 01/04/23 Lenora Santos PA [address] [place] [address] Physician Internal Controls Manager Family Medicine 01/04/23 Team Status: Inactive Member Role Status Dates Lenora Santos PA-C Primary Care Provider Active Start: August 12, 2023 End: August 12, 2023 Allan Dimas PA-C Emergency Provider Active Start: August 12, 2023 End: August 12, 2023 Team Status: Inactive Member Role Status Dates Lenora Santos PA-C Primary Care Provider Active Start: September 19, 2023 End: September 19, 2023 Forest Giordano APRN Attending Provider Active Start: September 19, 2023 End: September 19, 2023 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 Start Date End Date Renetta Chavarria MD [address] [place] [address] PCP - General Family Medicine 01/04/23 Lenora Santos PA [address] [place] [address] Physician Internal Controls Manager Family Medicine 01/04/23 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 Start Date End Date Neli Slater MD PCP - General Family Medicine 03/19/11 Lenora Santos PA-C [address] [place] [address] [place] [address] Referring Family Medicine 03/18/23 Team Status: Active Member Role Status Dates Lenora Santos PA-C Primary Care Provider Active Start: September 25, 2023 Forest Giordano APRN Attending Provider Active Start: September 25, 2023 Team Status: Inactive Member Role Status Dates Lenora Santos PA-C Primary Care Provider Active Start: September 25, 2023 End: September 25, 2023 Temporary Fibroscan Attending Provider Active St art: September 25, 2023 End: September 25, 2023 Forest Giordano APRN Referring Provider Active Start: September 25, 2023 End: September 25, 2023 Team Status: Inactive Member Role Status Dates Lenora Santos PA-C Primary Care Provider Active Start: September 25, 2023 End: September 25, 2023 Forest Giordano APRN Attending Provider Active Start: September 25, 2023 End: September 25, 2023 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 Start Date End Date Neli Slater MD PCP - General Family Medicine 03/19/11 Lenora Santos [place] [address] Referring Family Medicine 03/18/23 Team Status: Inactive Member Role Status Dates Lenora Santos PA-C Primary Care Provider Active Start: October 18, 2023 End: October 18, 2023 Forest Giordano APRN Attending Provider Active Start: October 18, 2023 End: October 18, 2023 Team Status: Inactive Member Role Status Dates Lenora Santos PA-C Primary Care Provider Active Start: October 24, 2023 End: October 24, 2023 Jorge Alberto Rowe MD Attending Provider Active St art: October 24, 2023 End: October 24, 2023 Team Status: Active Member Role Status Dates Lenora Santos PA-C Primary Care Provider Active Start: September 25, 2023 Forest Giordano APRN Referring Provider Active Start: September 25, 2023 Kamilah Ward MD Attending Provider, Other Provider Active Start: September 25, 2023 Team Status: Inactive Member Role Status Dates Lenora Santos PA-C Primary Care Provider Active Start: December 06, 2023 End: December 06, 2023 Forest Giordano APRN Attending Provider Active Start: December 06, 2023 End: December 06, 2023 Team Status: Inactive Member Role Status Dates Lenora Santos PA-C Primary Care Provider Active Start: December 24, 2023 End: December 24, 2023 Kamilah Ward MD Attending Provider Active Start: December 24, 2023 End: December 24, 2023 Team Status: Inactive Member Role Status Dates Lenora Santos PA-C Primary Care Provider Active Start: March 06, 2024 End: March 06, 2024 Kamilah Ward MD Attending Provider Active Start: March 06, 2024 End: March 06, 2024 Team Status: Inactive Member Role Status Dates Lenora Santos PA-C Primary Care Provider Active Start: March 17, 2024 End: March 17, 2024 Tank Xavier MD Attending Provider Active Start: March 17, 2024 End: March 17, 2024 Team Status: Inactive Member Role Status Dates Lenora Santos PA-C Primary Care Provider Active Start: March 24, 2024 End: March 24, 2024 SARAI Eisenberg Attending Provider Active Start: March 24, 2024 End: March 24, 2024 Team Status: Inactive Member Role Status Dates Lenora Santos PA-C Primary Care Provider Active Start: March 28, 2024 End: March 28, 2024 Tank Xavier MD Attending Provider Active Start: March 28, 2024 End: March 28, 2024 Goals (unrecognized section and content) Goals may be documented in a n alternate section REASON FOR VISIT (unrecogniz ed section and content) Reason Comments Follow Up Thyroid Reason Comments Med Refill Reason Comments Initial Consult Specialty Diagnoses / Procedures Referred By Contflaco t Referred To Contact Diagnoses Class 3 severe obesity with serious comorbidity and body mass index (BMI) of 40.0 to 44.9 in adult, unspecified obesity type (HCC) Procedures ENDOCRINE MEDICAL WEIGHT MANAGEMENT OFFICE/OUTPATIENT [facility] 60-74 MINUTES Elly Galicia MD [address] [place] [address] Referral ID Status Reason Start Date Expiration Date V isits Requested Visits Authorized [id number] Closed PCP Requested Referral 06/24/2023 06/23/2024 1 1 Reason Comments Follow Up Source Comments (unrecognize d section and content) In the event this informatio n is protected by the Federal Confidentiality of Alcohol and Drug Abuse Patient Records regulations: The Federal rules restrict any use of the information to criminally investigate or prosecute any alcohol or drug abuse patient.[facility] the event this information is protected by the Federal Confidentiality of Alcohol and Drug Abuse Patient Records regulations: The Federal rules restrict any use of the information to criminally investigate or prosecute any alcohol or drug abuse patient.[facility] the event this information is protected by the Federal Confidentiality of Alcohol and Drug Abuse Patient Records regulations: The Federal rules restrict any use of the information to criminally investigate or prosecute any alcohol or drug abuse patient.[facility] the event this information is protected by the Federal Confidentiality of Alcohol and Drug Abuse Patient Records regulations: The Federal rules restrict any use of the information to criminally investigate or prosecute any alcohol or drug abuse patient.[facility] FOR RECORDS PERTAINING TO PATIENTS WHO ARE OR HAVE BEEN ENROLLED IN A CHEMICAL DEPENDENCY/SUBSTANCEABUSE PROGRAM, SOME INFORMATION MAY BE OMITTED. This clinical summary was aggregated from multiple sources. Caution should be exercised in using it in the provision of clinical care. This summary normalizes information from multiple sources, and as a consequence, information in this document may materially change the coding, format and clinical context of patient data. In addition, data may be omitted in some cases. CLINICAL DECISIONS SHOULD BE BASED ON THE PRIMARY CLINICAL RECORDS. [facility] [facility]. provides no warranty or guarantee of the accuracy or completeness of information in this document.
[2024-04-13 06:12] LABS: Basophils Absolute Auto 0.1 10^3/uL (0.0-0.1); Basophils Percent Auto 0.9 % (0.2-2.0); Eosinophils Absolute Auto 0.2 10^3/uL (0.0-0.7); Eosinophils Percent Auto 2.4 % (0.9-7.0); Hemoglobin 14.6 g/dL (12.0-16.0); Immature Granulocytes Abs Auto 0.02 10^3/uL (0.00-0.03); Immature Granulocytes Pct Auto 0.3 % (0.0-0.5); Lymphocytes Absolute Auto 3.8 10^3/uL (1.2-3.8); Lymphocytes Percent Auto 48.1 % (20.5-60.0); Mean Corpuscular HGB Conc 34.8 g/dL (29.9-35.2); Mean Corpuscular Hemoglobin 31.4 pg (26.7-34.0); Mean Corpuscular Volume 90.3 fL (81.0-99.0); Mean Platelet Volume 10.4 fL (9.5-13.5); Monocytes Absolute Auto 0.7 10^3/uL (0.3-0.8); Monocytes Percent Auto 8.7 % (1.7-12.0); Neutrophils Absolute Auto 3.2 10^3/uL (1.4-6.5); Neutrophils Percent Auto 39.6 % (43.0-75.0); Platelet Count 199 10^3/uL (150-450); Red Blood Count 4.65 10^6/uL (4.20-5.40); Red Cell Distribution Width 12.4 % (11.0-15.0); White Blood Count 7.9 10^3/uL (4.0-11.0)
[2024-04-13 06:15] VITALS: BP 140/74; PULSE 70; TEMP 36.1; O2SAT 99; BMI 42.4
[2024-04-13 06:25] LABS: Anion Gap 10.8; BUN Creatinine Ratio 11.2; Chloride 105 mmol/L (98-107); Estimated GFR (African America >60 (>=60); Estimated GFR (Non-African Ame >60 (>=60); Glucose 108 mg/dL (74-106); Sodium 143 mmol/L (136-145)
[2024-04-13 06:27] LABS: Potassium 2.8 mmol/L (3.5-5.1)
--- NOTE | 2024-04-13 06:48 | PC.NURSE ---
[id number] MOREL OF LOW POTASSIUM AT THIS TIME
--- NOTE | 2024-04-13 10:00 | PC.NURSE ---
PATIENT'S PROCEDURE WAS POST PONED DUE TO LOW POTASSIUM.
== END 2024-04-13 07:48 | disposition home or self-care (01) ==
PROVIDERS: Anesthesiology; PCP Physician Assistant; Visit Provider Podiatrist Foot & Ankle Surgery
DX: M19.071 Primary osteoarthritis, right ankle and foot (principal); Z53.8 Procedure and treatment not carried out for other reasons
CPT/HCPCS: 28725; 36415; 80048; 85025

== ENCOUNTER 2024-04-21 14:52 | Outpatient (OUT) | payer BC, SELFPAY | END 2024-04-21 14:53 | disposition home or self-care (01) | LOC: PST 14:52 | PROVIDERS: PCP Physician Assistant; Visit Provider Podiatrist Foot & Ankle Surgery | DX: Z01.818 Encounter for other preprocedural examination (principal); M93.20 Osteochondritis dissecans of unspecified site; M19.071 Primary osteoarthritis, right ankle and foot ==

== ENCOUNTER 2024-05-07 10:57 | Outpatient (OUT) | payer BC, SELFPAY ==
--- OUTSIDE RECORDS SUMMARY | 2024-05-07 11:10 | XMS_ITS | CCD ---
Author Organization [facility] Care Team Providers Care Electronic Tech Name Role Phone MATTHEW RIVER Admitting Unavailable MATTHEW RIVER H Attending Unavailable LENORA SANTOS Primary Care Unavailable ILANA MEDEIROS V Consulting Unavailable MATTHEW RIVER Consulting Unavailable Lenora SANTOS Primary Care Physician Adriana Maier Unavailable Unavailable THELMA Santos Primary Care Provider DO Regino Metcalf Emergency Provider Lenora Alvarez Unavailable Neli Slater MD Primary Care Provider Lenora Santos PA-C Unavailable [phone] THELMA Santos Primary Care Provider [phone] THELMA Dimas Emergency Provider Renetta Chavarria MD Primary Care Provider Lenora Sandy Unavailable [phone] DANNY Giordano Attending Provider Fibroscan, Temporary Attending Provider DANNY Conroy Referring Provider THELMA Santos Primary Care Provider THELMA Dimas Emergency Provider DANNY Giordano Attending Provider Fibroscan, Temporary Attending Provider DANNY Conroy Referring Provider MD Jorge Alberto Rowe Attending Provider [phone] THELMA Santos Primary Care Provider NANLOYDA, NEEHARIKA Referring Unavailable YUE, NELI A Primary Care Unavailabl e NANDAM, NEEHARIKA Referring Unavailable YUE, NELI A Primary Care Unavailabl e NANDAM, NEEHARIKA Attending Unavailable YUE, NELI A Primary Care Unavailabl e VEERAMACHANENI, RAVALI Attending Unavailab le YUE, ENLI A Primary Care Unavailabl e YUE, NELI A Primary Care Unavailabl e VEERAMACHANENI, RAVALI Referring Unavailab le YUE, NELI A Primary Care Unavailabl e VEERAMACHANENI, RAVALI Attending Unavailab le NANDAM, NEEHARIKA Referring Unavailable YUE, NELI A Primary Care Unavailabl e NANDAM, NEEHARIKA Referring Unavailable NANDAM, NEEHARIKA Attending Unavailable YUE, NELI A Primary Care Unavailabl e THELMA Santos Primary Care Provider [phone] DANNY Giordano Attending Provider THELMA Santos Primary Care Provider MD Kamilah Ward Attending Provider [phone] Hu Davis Attending Unavailable Hu Davis Referring [...] SANTOS Referring Unavailable NONE, XXXX Referring Unavailable Forest Gonzalez Attending UnavailForest Moreno Admitting Unavaila Lenora Zamarripa Referring Unavailable oFrest Gonzalez Admitting Unavaila Forest Jackson Attending Unavaila Forest Jackson Consulting Unavaila oFrest Jackson Attending Unavaila Forest Jackson Referring Unavaila Forest Jackson Admitting Unavaila MD Forest Jackson Consulting Unava ilForest Schmidt Consulting Unavaila Hu Winston Referring Unavailable DO Hu Davis Admitting Unavailabl e Hu Davis Attending Unavailable MD Tank Xavier Attending Provider [phone] LENORA SANTOS Attending Unavailable LENORA SANTOS Attending Unavailable LENORA SANTOS Attending Unavailable LENORA SANTOS Attending Unavailable LENORA SANTOS Attending Unavailable LENORA SANTOS Attending Unavailable LENORA SANTOS Attending Unavailable LENORA SANTOS Attending Unavailable MD Tank Xavier Referring Provider Lenora Santos Primary Care Unavailable Asaad, Imad Admitting Unavailable Asaad, Imad Attending Unavailable Tank Xavier Referring Unavailable Lenora Santos Primary Care Unavailable Tank Xavier Admitting Unavailable Tank Xavier Attending Unavailable Forest Giordano Attending Unavailable Lenora Santos Primary Care Unavailable Forest Giordano Admitting Unavailable Asaad, Imad Admitting Unavailable Asaad, Imad Attending Unavailable Lenora Santos Primary Care Unavailable Forest Giordano Attending Unavailable Lenora Santos Primary Care Unavailable Forest Giordano Admitting Unavailable Forest Giordano Referring Unavailable Lenora Santos Primary Care Unavailable Asaad, Imad Admitting Unavailable Asaad, Imad Attending Unavailable Soledad, Jorge Alberto Admitting Unavailable Soledad Jorge Alberto Attending Unavailable Lenora Santos Primary Care Unavailable Lenora Santos Primary Care Unavailable Tank Xavier Admitting Unavailable Tank Xavier Attending Unavailable Lenora Santos Primary Care Unavailable Allan Dimas Admitting Unavailable Allan Dimas Attending Unavailable Allergies Allergy Classification Reported Allergen(s) Allergy Type Date of Onset Reaction(s) Facility Acetaminophen / HYDROcodone (1 source) Acetaminophen / HYDROcodone; Translations: [acetaminophen-hydr ocodone] Drug Allergy Hallucinations (finding) [facility] Sulfamethoxazole / Trimethoprim (1 source) Sulfamethoxazole / Trimethoprim; Translations: [sulfamethoxazole-t rimethoprim] Drug Allergy Weal (disorder) [facility] (20 sources) Acetaminophen / HYDROcodone; Translations: [acetaminophen-hydr ocodone] Drug Allergy 011 Hallucinations (finding), Other: See Comments [facility] (17 sources) Acetaminophen; Translations: [acetaminophen] Drug Allergy 023 Other: See Comments [facility] (6 sources) HYDROcodone; Translations: [hydrocodone] Drug Allergy 023 Hallucinating [facility] (5 sources) Adhesive Tape; Translations: [ADHESIVE TAPE (ROSINS)] Allergy to substance 011 Rash, Itching [facility] Work Phone: (5 sources) Seasonal allergy; Translations: [SEASONAL ALLERGIES] Allergy to substance 011 Itching, Other: See Comments [facility] (3 sources) Acetaminophen / HYDROcodone; Translations: [HYDROCODONE-ACETAM INOPHEN] Drug Allergy 011 Hallucinations [facility] (2 sources) Other Allergy to substance 011 Itching, Other [facility] (2 sources) Wound Dressing Adhesive Drug Allergy 011 Itching, Rash [facility] (5 sources) Sulfamethoxazole / Trimethoprim; Translations: [sulfamethoxazole-t rimethoprim] Drug Allergy Weal (disorder) [facility] (11 sources) Sulfamethoxazole; Translations: [sulfamethoxazole] Drug Allergy 024 yeast infection [facility] (11 sources) Trimethoprim; Translations: [trimethoprim] Drug Allergy 024 yeast infection [facility] Medications Current Medications Medication Drug Class(es) [...] Start: 04-08-2019 take 1 tablet by vargas once daily Ziac 5 mg-6.25 mg oral tablet 1 tab(s), Oral, Daily, 90 tab(s), Refill(s) 1, [facility]/pharmacy #[id number] Start Date: 04/08/19 Status: Ordered [...] procedure, # 2 tab(s), Refills(s) 0, Pharmacy: [facility]/pharmacy #[id number], 163, cm, 03/28/22 9:01:00 EDT, Height/Length Dosing, 105, kg, 03/28/22 9:01:00 EDT, Weight Dosing Start Date: 03/28/22 Status: Ordered DULoxetine 30 mg delayed release oral capsule (2 sources) Serotonin and Norepinephrine Reuptake Inhibitor Start: 08-09-19 take 1 capsule by mouth in the [...] 3 weeks, then 3x per week thereafter, [facility]/pharmacy #[id number], 162.5, cm, 04/24/22 15:43:00 EDT, Height/Length Dosing, 105, kg, 03/28/22 9:01:00 EDT, Weight Dosing Start Date: 06/01/22 Status: Ordered Start: 03-28-2022 Estrace 0.1 mg /g Cream See Instructions, 42.5 gm, Refill(s) 5, insert 1gm vaginally & apply pea sized amount around the urethra nightly x 3 weeks, then 3x per week thereafter, [facility]/pharmacy #[id number], 163, cm, 03/28/22 9:01:00 EDT, [...] 2023 1:00am take 1 capsule by mo [facility] once daily before breakfast levothyroxine 50 mcg [...] Daily, Pain Start Date: 06/09/20 Status: Ordered 24 hr metFORMIN hydrochloride 500 mg extended release oral tablet (20 sources) Biguanide Start: take 500 mg by mouth four times daily metformin 500 mg, Oral, QID, Refills(s) 0 Start Date: 01/29/24 Status: Ordered Start: 12-06-2023 End: 04-24-2024 take 1000 mg by mouth once daily Metformin Active 1000 MG PO Daily April 24, 2024 12:00am Start: 10-17-2023 take 500 mg by [...] Daily, # 100 cap(s), Refills(s) 1, Pharmacy: [facility]/pharmacy #[id number] Start Date: 04/30/19 Status: Ordered [...] above: Take 1 tablet by vargas th daily at bedtime. nebivolol 2.5 mg oral tablet (19 sources) Start: 7 take 1 tablet by mouth once daily Nebivolol (Bystolic) 2.5 mg Tablet Active 2.5 MG PO Daily July 17, 2017 1:00am take 1 tablet by vargas th every twenty-four hours Bystolic 5 MG 1 tablet Orally Once a day Active Potassium (1 source) Potassium Active potassium chloride 20 meq extended release oral tablet (20 sources) Start: 04-24-2024 take 40 mEq by mouth once daily Potassium Chloride Active 40 MEQ PO Daily April 24, 2024 9:44am Start: 10-18-2023 End: 04-24-2024 take 20 mEq by mouth once daily Potassium Chloride Dis continued 20 MEQ PO Daily October 18, 2023 12:00am April 24, 2024 9:45am Start: 06-22-2020 take 1 tablet by vargas [...] day(s), # 21 tab(s), Refills(s) 0, Pharmacy: [id number], 162, cm, 08/12/23 11:38:00 EST, Height/Length Dosing, 125, kg, 08/12/23 11:38:00 EST, Weight Dosing Start Date: 08/12/23 Stop Date: 08/19/23 Status: Ordered Resmetirom (8 sources) Start: 03-17-2024 take 1 tablet by vargas th once daily Resmetirom (Rezdiffra) 100 mg tablet Active 100 MG PO Daily March 17, 2024 12:00am resmetirom 100 MG Oral Tablet [Rezdiffra] (2 sources) Start: 03-03-2024 take 1 tablet by vargas th once daily Rezdiffra 100 mg oral tablet 100 mg = 1 tab(s), Oral, Daily, Refills(s) 0 Start Date: 03/03/24 Status: Ordered Semaglutide (10 sources) Start: 04-24-2024 inject 0.25 mg by subcutaneous injection every week, then inject 0.5 mg by subcutaneous injection every week Semaglutide (Ozempic) 0.25 mg or 0.5 mg (2 mg/3 mL) pen injector Active 0.25 MG SUBCUT every week 3 April 24, 2024 12:00am for 4 weeks; then increase to 0.5 mg every week Start: 03-30-2024 Semaglutide (O zempic) 0.25 mg or 0.5 mg (2 mg/3 mL) pen injector Active 0.5 MG SUBCUT every week March 30, 2024 12:00am 0.5 mg for 4 weeks spironolactone 50 mg oral tablet (18 sources) Aldosterone Antagonist Start: 07-17-2017 take 50 [...] on above: Take 1 tablet by vargas at bedtime as needed. for insomnia. Completed/Discontinued [...] Maintenance 4:1) 20 mEq/810 mL (potassium) solution (16 sources) Start: 09-19-2023 End: 10-18-2023 Cardioplegic No.20 (Maint 4:1) (Cardioplegia Maintenance 4:1) 20 mEq/810 mL (potassium) solution Discontinued ML PERFUSION September 19, 2023 1:00am October 18, 2023 2:03pm Start: 09-19-2023 Cardioplegic N o.20 (Maint 4:1) (Cardioplegia Maintenance 4:1) 20 mEq/810 mL (potassium) solution Active ML PERFUSION September 19, 2023 12:00am cephalexin 500 mg oral capsule (18 sources) Cephalosporin Antibacterial Start: 07-23-2017 End: 09-19-2023 [...] 11:09am docusate sodium 50 mg / sennosides, [facility] 8.6 mg oral tablet (18 sources) Start: 07-23-2017 End: 09-19-2023 take 2 tablets by mouth twice daily Sennosides-Docusate Sodium (Dok Plus) 8.6-50 mg Tablet Discontinued 2 TAB PO Twice daily 40 July 23, 2017 1:00am September 19, 2023 11:10am 72 hr fentaNYL 0.025 mg/hr transdermal system (18 sources) Opioid Agonist Start: 07-23-2017 End: 09-19-2023 Fentanyl Discontinued 25 MCG TRANSDERML Every 72 hours 5 July 23, 2017 1:00am September 19, 2023 11:09am ferrous sulfate 324 mg delayed release oral tablet (18 sources) Start: 07-23-2017 End: 09-19-2023 take 324 mg by mouth twice daily Ferrous Sulfate Discontinued 324 MG PO Twice daily 30 July 23, 2017 1:00am September 19, 2023 11:09am Prednisone Dose Pack (18 sources) Start: 07-17-2017 End: 07-23-2017 Prednisone Dose Pack Discontinued July 17, 2017 12:00am July 23, 2017 5:18pm Start: 07-17-2017 End: 07-23-2017 Prednisone Dose Pack Discont inued July 17, 2017 1:00am July 23, 2017 6:18pm pregabalin 75 mg oral capsule (18 sources) Start: 09-20-2023 End: 12-06-2023 take 1 capsule by mouth twice daily Pregabalin (Lyrica) 75 mg capsule Discontinued 75 MG PO Twice daily October 18, 2023 12:00am December 06, 2023 9:18am Comment on above: Take 75 mg by mouth. Semaglutide Base (14 sources) Start: 03-17-2024 End: 03-30-2024 inject 1 mL by subcutaneous injection every week Semaglutide Base Discontinued 0.25 ML SUBCUT every week 1 March 17, 2024 12:00am March 30, 2024 10:06am [facility] Pre-filled Syringes using Semaglutide Base. Dispense 1 mL = (Four 0.25 mL pre-filled syringes) Start: 03-17-2024 End: 03-30-2024 inject 1 mL by subcutaneous injection every week Semaglutide Base Discontinued 0.5 ML SUBCUT every week 2 March 17, 2024 12:00am March 30, 2024 10:06am [facility] Pre-filled Syringes using Semaglutide Base. Dispense 2 mL = (Four 0.5 mL pre-filled syringes) Start: 03-17-2024 inject 1 mL by subcu taneous injection every week Semaglutide Base Active 0.25 ML SUBCUT every week March 17, 2024 12:00am [facility] Pre-filled Syringes using Semaglutide Base. Dispense 1 mL = (Four 0.25 mL pre-filled syringes) Start: 03-17-2024 inject 1 mL by subcu taneous injection every week Semaglutide Base Active 0.5 ML SUBCUT every week March 17, 2024 12:00am [facility] Pre-filled Syringes using Semaglutide Base. Dispense 2 mL = (Four 0.5 mL pre-filled syringes) tirzepatide, weight loss (ZEPBOUND) 2.5 mg/0.5 mL [...] week. traMADol hydrochloride 50 mg oral tablet (17 sources) Opioid Agonist Start: 08-12-2023 End: 10-18-2023 [...] 03-28-2022 05-14-2013 Episodic Diabetes mellitus without complication (9 sources) Type 2 diabetes mellitus; Translations: [Type 2 diabetes mellitus without complications] Onset: 05-04-2024 04-24-2024 Chronic Diabetes mellitus without complication (18 sources) Hyperglycemia; Translations: [Hyperglycemia, unspecified] Onset: 02-14-2023 02-14-2023 Episodic Essential hypertension (20 sources) Essential hypertension; Translations: [Essential (primary) hypertension] Onset: 01-04-2023 05-06-2023 Chronic Genitourinary symptoms and ill-defined conditions (20 sources) Increased frequency of urination; Translations: [Frequency of micturition] Onset: 03-28-2022 Episodic Hepatitis (20 sources) Steatohepatitis; Translations: [Nonalcoholic steatohepatitis (MANRIQUEZ)] Onset: 04-30-2024 12-24-2023 Chronic Miscellaneous mental health disorders (3 sources) Primary insomnia; Translations: [Primary insomnia] Onset: 01-04-2023 01-04-2023 Chronic Mood disorders (20 sources) Depressive disorder; Translations: [Depression] Onset: 02-01-2023 12-11-2018 Chronic Osteoarthritis (6 sources) Degenerative joint disease of ankle AND/OR foot; Translations: [Primary osteoarthritis, unspecified ankle and foot] Onset: 03-20-2011 03-20-2011 Chronic Other aftercare (1 source) Other assisted (current) drug therapy; Translations: [Other assisted (current) drug therapy] Onset: 05-04-2024 Episodic Other bone disease and musculoskeletal deformities (20 [...] 02-01-2023 12-11-2018 Episodic Other connective tissue disease (18 sources) Swelling of lower limb; Translations: [Other specified soft tissue disorders] 08-06-2023 Episodic Other connective tissue disease (2 sources) [...] Onset: 12-15-2021 Episodic Other nervous system disorders (18 sources) Impaired cognition; Translations: [Other symptoms and signs involving cognitive functions and awareness] 03-10-2023 Episodic Other non-traumatic joint disorders (17 sources) Hip pain; Translations: [Pain in right hip] 08-12-2023 Episodic Other non-traumatic joint disorders (2 sources) Pain in lower limb; Translations: [Pain in unspecified joint] Onset: 08-09-2023 08-09-2023 Episodic Other nutritional; endocrine; and metabolic disorders (20 sources) Severe obesity; Translations: [Morbid (severe) obesity due to excess calories] Onset: 02-01-2023 09-08-2019 Chronic Other nutritional; endocrine; and metabolic disorders (9 sources) Body mass index 40+ - severely [...] Chronic Other nutritional; endocrine; and metabolic disorders (12 sources) Body mass index (BMI) 40.0-44.9, adult; [...] (pediatric)] Onset: 04-05-2023 Chronic Residual codes; unclassified (13 sources) Sleep apnea; Translations: [Sleep apnea, unspecified] Onset: 01-04-2023 05-06-2023 Chronic Residual codes; unclassified (12 sources) Sleep apnea, unspecified; Translations: [Unspecified sleep [...] Spondylosis; intervertebral disc disorders; other back problems (10 sources) Sciatica; Translations: [Sciatica, right side] Onset: 01-04-2023 01-04-2023 Episodic Thyroid disorders (20 sources) Acquired hypothyroidism; Translations: [Hypothyroidism, unspecified] Onset: [...] conditions (not mental disorders or infectious disease) (20 sources) Patient encounter status; Translations: [Encounter for [...] Test Name Value Interpretation Reference Range Facility Creatinine [Mass/volume] in UrineOrdered By: Tank Xavier on 09-30-2024 Creatinine (U) [Mass/Vol] 165.00 mg/dL [facility] Comment on above: No reference range e stablished MicroAlb Creat Ratio,UOrdere d By: Tank Xavier on 05-04-2024 Albumin DL <= 20 mg/L (U) [Mass/Vol] 0.8 mg/dL Normal 0.0-1.8 [facility] Comment on above: Performed By: #### B 12, URMACRERAT #### [facility] [address] MicroAlb Creat Ratio,Uon Creatinine, Urine (Random) 165.00 mg/dL Normal [facility] Comment on above: Result Comment: No r eference range established Performed By: #### B 12, URMACRERAT #### [address] Microalbumin/Creatinine Ratio 4.8 mg/g Normal 0.0-30.0 [facility] Comment on above: Result Comment: 30-3 00 mg/g indicates an increased risk for diabetic nephropathy. Greater than 300 mg/g is consistent with clinical nephropathy. (Am. J. Kidney Disease 1995, 25:107) PERFORMED BY: [place] [address] PATHOLOGIST OPERATIONS DIRECTOR LORRAINE DIETZ M.D. Performed By: #### B 12, URMACRERAT #### [address] Urine microalbumin/creatinin e mass ratioOrdered By: Tank Xavier on 05-04-2024 Albumin/Creatinine DL <= 20 mg/L (U) [Mass ratio] 4.8 mg/g 0.0-30.0 [facility] Comment on above: 30-300 mg/g indicate s an increased risk for diabetic nephropathy. Greater than 300 mg/g is consistent with clinical nephropathy. (Am. J. Kidney Disease 1995, 25:107) Vitamin [id number] By: Richard Xavier on 05-04-2024 Cobalamin (Vitamin B12) [Mass/Vol] 291 pg/mL Normal 180-914 [facility] Comment on above: Result Comment: PERF ORMED BY: [place] [address] PATHOLOGIST OPERATIONS DIRECTOR LORRAINE DIETZ M.D. Performed By: #### B 12, URANDREARERAT ####[place] [id number] [address] Alanine aminotransferase [En zymatic activity/volume] in Serum or PlasmaOrdered By: Imad Asaad on 04-30-2024 ALT [Catalytic activity/Vol] 66 U/L High 7-52 [facility] Comment on above: Performed By: #### C MP #### [facility] [address] [place] [address] [place] Albumin [Mass/volume] in Ser um or Plasma by Bromocresol green (BCG) dye binding methoOrdered By: Imad Asaad on 04-30-2024 Albumin BCG dye [Mass/Vol] 4.3 g/dL 3.5-5.7 [facility] Alkaline phosphatase [Enzyma tic activity/volume] in Serum or PlasmaOrdered By: Imad Asaad on 04-30-2024 ALP [Catalytic activity/Vol] 60 U/L Normal 34-104 [facility] Comment on above: Result Comment: PERF ORMED BY: [place] [address] PATHOLOGIST OPERATIONS DIRECTOR LORRAINE DIETZ M.D. Performed By: #### C MP #### [facility] [address] [place], [place] [id number] [place] Aspartate aminotransferase [ Enzymatic activity/volume] in Serum or PlasmaOrdered By: Imad Asaad on 04-30-2024 AST [Catalytic activity/Vol] 60 U/L High 13-39 [facility] Comment on above: Performed By: #### C MP #### [place] [address] [place] Bilirubin.total [Mass/volume ] in Serum or PlasmaOrdered By: Imad Asaad on 04-30-2024 Bilirubin [Mass/Vol] 0.7 mg/dL Normal 0.3-1.[address] [facility] Comment on above: Performed By: #### C MP #### [address] Calcium [Mass/volume] in Ser um or PlasmaOrdered By: Imad Asaad on 04-30-2024 Calcium [Mass/Vol] 9.7 mg/dL Normal 8.6-10.3 [facility] Comment on above: Performed By: #### C MP #### [address] Carbon dioxide, total [Moles /volume] in Serum or PlasmaOrdered By: Imad Asaad on 04-30-2024 CO2 [Moles/Vol] 26.6 mmol/L Normal 21.0-31.[address] [facility] Comment on above: Performed By: #### C MP #### [address] Chloride [Moles/volume] in S nusrat or PlasmaOrdered By: Imad Asaad on 04-30-2024 Chloride [Moles/Vol] 107 mmol/L Normal 98-[address] [facility] Comment on above: Performed By: #### C MP #### [address] Comprehensive Metabolic Pane seb 04-30-2024 Albumin [Mass/Vol] 4.3 g/dL Normal 3.5-5.7 [facility] Comment on above: Performed By: #### C MP #### [place] [address] [place] GFR/1.73 sq M.predicted MDRD (S/P/Bld) [Vol rate/Area] mL/min/{1.73_m2} Normal [facility] Comment on above: Performed By: #### C MP #### [place] [address] [place] Creatinine [Mass/volume] in Serum or PlasmaOrdered By: Imad Asaad on 04-30-2024 Creatinine [Mass/Vol] 0.68 mg/dL Normal 0.60-1.20 [facility] Comment on above: Performed By: #### C MP #### [address] Glucose [Mass/volume] in Ser um or PlasmaOrdered By: Imad Asaad on 04-30-2024 Glucose [Mass/Vol] 92 mg/dL Normal 70-100 [facility] Comment on above: ADA recommended refe rence rangeRandom Glucose Reference Range is dependent on time and content of last meal. Glucose of more than 200 mg/dL in a nonstressed, ambulatory subject supports the diagnosis of Diabetes Mellitus. Result Comment: [place] om Glucose Reference Range is dependent on time and content of last meal. Glucose of more than 200 mg/dL in a nonstressed, ambulatory subject supports the diagnosis of Diabetes Mellitus. ADA recommended reference range Performed By: #### C MP #### [address] No Panel InformationOrdered By: Imad Asaad on 04-30-2024 Estimated GFR (CKD-EPI) > 60.0 mL/Min [facility] Creatinine Clearance (Chem N/A [facility] Potassium [Moles/volume] in Serum or PlasmaOrdered By: Imad Asaad on 04-30-2024 Potassium [Moles/Vol] 4.2 mmol/L Normal 3.5-5.1 [facility] Comment on above: Performed By: #### C MP #### [address] Protein [Mass/volume] in Ser um or PlasmaOrdered By: Imad Asaad on 04-30-2024 Protein [Mass/Vol] 6.9 g/dL Normal 6.4-8.9 [facility] Comment on above: Performed By: #### C MP #### [address] Serum globulin measurement b y calculation (mass/volume)Ordered By: Imad Asaad on 04-30-2024 Globulin (S) [Mass/Vol] 2.6 g/dL Normal [facility] Comment on above: Performed By: #### C MP #### [address] Serum or plasma albumin/glob ulin mass ratioOrdered By: Imad Asaad on 04-30-2024 Albumin/Globulin [Mass ratio] 1.7 {ratio} Normal [facility] Comment on above: Performed By: #### C MP #### [facility] [address] Serum or plasma anion gap de terminationOrdered By: Imad Asaad on 04-30-2024 Anion gap [Moles/Vol] 9.6 mmol/L Normal 6.0-15.0 [facility] Comment on above: Performed By: #### C MP #### [facility] [address] [place] [address] [place] Sodium [Moles/volume] in Ser um or PlasmaOrdered By: Imad Asaad on 04-30-2024 Sodium [Moles/Vol] 139 mmol/L Normal 136-145 [facility] Comment on above: Performed By: #### C MP #### [facility] [address] [place] [address] Urea nitrogen [Mass/volume] in Serum or PlasmaOrdered By: Imad Asaad on 04-30-2024 Urea nitrogen [Mass/Vol] 14 mg/dL Normal 7-25 [facility] Comment on above: Performed By: #### C MP #### [address] Glucose Tolerance 2 Houron 0 03-28-2024 Glucose Tolerance 2 Hour High [facility] Comment on above: Result Comment: FAST ING 112 H Col: 03/28/24 0727 1HR GLU 213 Col: 03/28/24826 2HR GLU 242 Col: 03/28/24926 NON-GESTATIONAL GESTATIONAL FASTING 70-100 < 92 1 HOUR < 200 < 180 2 HOUR < 140 < 153 PERFORMED BY: [place] [address] PATHOLOGIST OPERATIONS DIRECTOR LORRAINE DIETZ M.D. Performed By: #### G TT2 ####[facility] [address] Serum or plasma glucose courtney urement 2 hours post 75 gm oral glucose (mass/volume)Ordered By: Tank Xavier on 03-28-2024 Glucose 2 Hr post 75 g glucose PO [Mass/Vol] See comment [facility] Comment on above: FASTING 112 H Col: 0 03/28/24 0727 1HR GLU 213 Col: 03/28/24 0827 2HR GLU 242 Col: 03/28/24 0927 A1C with Estimated Average G afsanehn 03-06-2024 Glucose [Mass/Vol] 131 mg/dL Normal [facility] Comment on above: Result Comment: PERF ORMED BY: [place] [address] PATHOLOGIST OPERATIONS DIRECTOR LORRAINE DIETZ M.D. Performed By: #### E LF #### [facility] , #### LIPID, A1C [facility] e[facility] #### [facility] [address] [place] [address] Cholesterol [Mass/volume] in Serum or PlasmaOrdered By: Kamilah Ward on 03-06-2024 Cholesterol [Mass/Vol] 152 mg/dL Normal 140-200 [facility] Comment on above: Chol less than 200 m g/dl low riskChol 201-239 mg/dl borderline riskChol 240 mg/dl and greater high risk Result Comment: Chol less than 200 mg/dl low risk Chol 201-239 mg/dl borderline risk Chol 240 mg/dl and greater high risk Performed By: #### E LF #### [facility] , #### LIPID, A1C WT eA #### [facility] [address] [place] [address] [place] Cholesterol in LDL Calc [Mas s/Vol]Ordered By: Kamilah Ward on 03-06-2024 Cholesterol in LDL [Mass/Vol] 78 mg/dL 0-100 [facility] Comment on above: LDL ATP III CLASSIFI CATIONLDL less than 100 mg/dL OptimalLDL 100-129 mg/dL Near or above optimalLDL 130-159 mg/dL Borderline highLDL 160-189 mg/dL HighLDL greater than 189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 officer note 09/12/2023. Patient seen for hypertension. Noted [...] RADHA Gaxiola In 3 days 10/01/[address] [place] [address]- Additional Instructions: Additional Instructions: Call the office [...] made to ensure accuracy, however, inadvertently computerized intelligence consultant management be present. Problem List/Past Medical History Ongoing Acne rosacea Class 3 severe obesity with body mass index (BMI) of 40.0 to 44.9 in adult Frequent UTI Influenza vaccination up to date Kidney stones Non-tobacco user Osteochondritis dissecans Urine frequency Historical DVT Kidn (more content not included)... Normal [facility] Comment on above: Result Comment: Elec tronically Signed By: Lara Reyes PA-C\.br\Date and Time Signed: 09/28/23 15:38 EST\.br\Electronically Co-Signed By: Cody Young M.D.\.br\Date and Time Co-Signed: 09/28/23 19:52 EST ED Patient Summaryon 024 ED Patient Summary (Inserted Image. Carrie ble to display) [address] [address] Patient Discharge Instructions Person Information Name: DEJAH DYKES Age: 53 Years Arrival Date: 09/28/2023 14:44:25 Discharge Diagnosis: 1:COVID Primary Care Physician: Lenora SANTOS PA-C Provider Information Primary Provider: Cody Young M.D. Advanced Art History Instructor:Lara Reyes PA-C The exam and treatment you received in the Emergency Department were for an urgent problem and are not intended as complete care. It is important that you follow up with a doctor, nurse practitioner, or physician?s plumber assistant for ongoing care. If your symptoms [...] Instructions: With: Address: When: Lenora SANTOS PA-C, [facility] [address] In 3 days 10/01/2023 In the event that this physician does not participate in your insurance network, please consult with your insurance company to find a nearby participating provider. Patient Education Materials: COVID-19 A MESSAGE TO ALL PATIENTS REGARDING OPIOIDS PRESCRIPTION OPIOIDS: WHAT YOU NEED TO KNOW Prescription opioids can be used to help relieve zeunxxhe-ug-ogssbq pain and are often prescribed following a [...] be struggling with addiction, tell your health animal care provider and ask for guidance or call [facility]?S National Helpline at 4-304-797-HELP. v Source: [place] Department of Health an (more content not included)... Normal [facility] Influenza A&B Agon Influenzae A Ag Negative Normal Negative [facility] Comment on above: Performed By: #### 2 [id number], [id number] ####[facility] [address] [place] [address] Influenzae B Ag Negative Normal Negative [facility] Comment on above: Result Comment: Test sensitivity and specificity vary for age group, specimen type, antigen types, and prevalence of disease. Test results must be evaluated in conjunction with other clinical data available to the physician. Individuals who received nasally administered Influenza A vaccine may have positive test results up to 3 days after vaccination. Performed By: #### 2 [id number], [id number] ####[facility] [address] [place] [address] MICRO OTHER TESTSOrdered By: Rajni Llanes on 09-28-2023 Influenzae A Ag Negative (09/28/23 3:07 PM) Normal Negative [facility] Influenzae B Ag Negative 1 (09/28/23 3:07 PM) Normal Negative [facility] Comment on above: Interpretive Data: T [...] NEG Ctl Pass (09/28/23 3:07 PM) Normal [facility] Rapid COV Int POS Ctl Pass (09/28/23 3:07 PM) Normal [facility] SARS-CoV+SARS-CoV-2 (COVID-19) Ag IA.rapid Ql (Resp) Detected 2 *ABN* (09/28/23 3:07 PM) Invalid Interpretation Code Not Detected [facility] Comment on above: Interpretive Data: Alhaji dorsey [employer] Veritor System for Rapid Detection of SARS-CoV-2 [...] other viruses or pathogens; and, in the [facility], this test is only authorized for the [...] COV Int NEG Ctl Pass Normal Fis [facility] Comment on above: Performed By: #### 2 [id number], [id number] ####[facility] [address] [place] [address] Rapid COV Int POS Ctl Pass Normal Fis [facility] Comment on above: Performed By: #### 2 [id number], [id number] ####[place] [address] [place] [address] SARS-CoV+SARS-CoV-2 (COVID-19) Ag IA.rapid Ql (Resp) Detected Abnormal Not Detected [facility] Comment on above: Result Comment: [employer] System for Rapid Detection of SARS-CoV-2 is [...] or revoked sooner. Performed By: #### 2 [id number], [id number] ####[facility] [address] [place] [address] Reportability Response - [facility] Healthon 09-28-2023 Reportability Response - Public Health {[id number]}XML Normal [facility] REYNALDO Reflex Testingon 024 REYNALDO with Reflex Positive Critically abnormal Negative [facility] Comment on above: Performed By: #### F ER, HEPATIC, FE and TIBC, PT, LIPID, CBC ####[address]#### HBCAB, HBSAG, ALPHA PHEN, REYNALDO RFX ADD ON, HBSAB, CERULOP, SMAB, HCV RX PCR ####[facility] , Anti-Centromere B Antibodies <0.2 Normal 0.0-0.9 [facility] Comment on above: Performed By: #### F ER, HEPATIC, FE and TIBC, PT, LIPID, CBC ####[address]#### HBCAB, HBSAG, ALPHA PHEN, REYNALDO RFX ADD ON, HBSAB, CERULOP, SMAB, HCV RX PCR ####[facility] , Anti-dsDNA(DBL)Ab 1 Normal 0-9 [facility] Comment on above: Result Comment: Nega tive <5 Equivocal 5 - 9 Positive >9 Performed By: #### F ER, HEPATIC, FE and TIBC, PT, LIPID, CBC ####[address]#### HBCAB, HBSAG, ALPHA PHEN, REYNALDO RFX ADD ON, HBSAB, CERULOP, SMAB, HCV RX PCR ####[facility] , Anti-WELDER HELPER <0.2 Normal 0.0-0.9 [facility] Comment on above: Performed By: #### F ER, HEPATIC, FE and TIBC, PT, LIPID, CBC ####[address]#### HBCAB, HBSAG, ALPHA PHEN, REYNALDO RFX ADD ON, HBSAB, CERULOP, SMAB, HCV RX PCR ####[facility] , Anti-Llanes Antibodies <0.2 Normal 0.0-0.9 [facility] Comment on above: Performed By: #### F ER, HEPATIC, FE and TIBC, PT, LIPID, CBC ####[address]#### HBCAB, HBSAG, ALPHA PHEN, REYNALDO RFX ADD ON, HBSAB, CERULOP, SMAB, HCV RX PCR ####[facility] , Chromatin Antibody <0.2 Normal 0.0-0.9 [facility] Comment on above: Performed By: #### F ER, HEPATIC, FE and TIBC, PT, LIPID, CBC ####[address]#### HBCAB, HBSAG, ALPHA PHEN, REYNALDO RFX ADD ON, HBSAB, CERULOP, SMAB, HCV RX PCR ####[facility] , SHEY-1 Antibody <0.2 Normal 0.0-0.9 [facility] Comment on above: Performed By: #### F ER, HEPATIC, FE and TIBC, PT, LIPID, CBC ####[address]#### HBCAB, HBSAG, ALPHA PHEN, REYNALDO RFX ADD ON, HBSAB, CERULOP, SMAB, HCV RX PCR ####[facility] , Scleroderma 70 Antibodies >8.0 High 0.0-0.9 [facility] Comment on above: Performed By: #### F ER, HEPATIC, FE and TIBC, PT, LIPID, CBC ####[address]#### HBCAB, HBSAG, ALPHA PHEN, REYNALDO RFX ADD ON, HBSAB, CERULOP, SMAB, HCV RX PCR ####[facility] , See Below: Normal . [facility] Comment on above: Result [...] Sm (anti-Llanes) SLE 15 - 30% --------- WELDER HELPER Mixed Connective Tissue Disease 95% (U1 nRNP, SLE 30 - 50% anti-ribonucleoprotein) Polymyositis and/or Dermatomyositis 20% --------- Scl-70 (antiDNA Scleroderma (diffuse) 20 - 35% topoisomerase) Crest 13% --------- Shey-1 Polymyositis and/or Dermatomyositis 20 - 40% --------- Centromere B Scleroderma - Crest variant 80% Performed at: [facility] [address] [id number] [place] Department Manager: Dhruv Schreiber PhD, Phone: [phone] Performed By: #### F ER, HEPATIC, FE and TIBC, PT, LIPID, CBC ####[address]#### HBCAB, HBSAG, ALPHA PHEN, REYNALDO RFX ADD ON, HBSAB, CERULOP, SMAB, HCV RX PCR ####[facility] , SS-A/Ro Sjogrens Antibody <0.2 Normal 0.0-0.9 [facility] Comment on above: Performed By: #### F ER, HEPATIC, FE and TIBC, PT, LIPID, CBC ####[address]#### HBCAB, HBSAG, ALPHA PHEN, REYNALDO RFX ADD ON, HBSAB, CERULOP, SMAB, HCV RX PCR ####[facility] , SS-B/La Sjogrens Antibody 0.5 Normal 0.0-0.9 [facility] Comment on above: Performed By: #### F ER, HEPATIC, FE and TIBC, PT, LIPID, CBC ####[facility] [address] [place] [address] [place]#### HBCAB, HBSAG, ALPHA PHEN, REYNALDO RFX ADD ON, HBSAB, CERULOP, SMAB, HCV RX PCR ####[facility] , Actin smooth muscle IgG Ab [ Units/volume] in SerumOrdered By: Forest Giordano on 09-25-2023 Actin smooth muscle IgG Qn (S) 129 Units 0-19 [facility] Comment on above: Negative 0 - 19 Weak positive 20 - 30 Moderate to strong positive >30 Actin Antibodies are found in 52-85% of patients with autoimmune hepatitis or chronic active hepatitis and in 22% of patients with primary biliary cirrhosis.Performed at: [facility] [place] [id number] Director: Dhruv Schreiber PhD, Phone: [phone] Alanine aminotransferase [En zymatic activity/volume] in Serum or PlasmaOrdered By: Forest Giordano on 09-25-2023 ALT [Catalytic activity/Vol] 51 U/L Normal 7-52 [facility] Comment on above: Performed By: #### F ER, HEPATIC, FE and TIBC, PT, LIPID, CBC ####[facility] [address]#### HBCAB, HBSAG, ALPHA PHEN, REYNALDO RFX ADD ON, HBSAB, CERULOP, SMAB, HCV RX PCR ####[facility] , Albumin [Mass/volume] in Ser um or Plasma by Bromocresol green (BCG) dye binding methoOrdered By: Forest Giordano on 09-25-2023 Albumin BCG dye [Mass/Vol] 4.2 g/dL 3.5-5.7 [facility] Alkaline phosphatase [Enzyma tic activity/volume] in Serum or PlasmaOrdered By: Forest Giordano on 09-25-2023 ALP [Catalytic activity/Vol] 90 U/L Normal 34-104 [facility] Comment on above: Performed By: #### F ER, HEPATIC, FE and TIBC, PT, LIPID, CBC ####[facility] [address] [place] [address] [place]#### HBCAB, HBSAG, ALPHA PHEN, REYNLADO RFX ADD ON, HBSAB, CERULOP, SMAB, HCV RX PCR ####[facility] , Jvoqf-6-Schzzswjgoy Phenotyp manuel 09-25-2023 Alpha 1 Anti-Trypsin 155 mg/dL Normal 101-187 [facility] Comment on above: Performed By: #### F ER, HEPATIC, FE and TIBC, PT, LIPID, CBC ####[facility] [address]#### HBCAB, HBSAG, ALPHA PHEN, REYNALDO RFX ADD ON, HBSAB, CERULOP, SMAB, HCV RX PCR ####[facility] , Phenotype (P1) MM Normal . [facility] Comment on above: Result [...] Ranges used to confirm phenotype. Performed at: - [address] [id number] [place] Department Manager: Dhruv Schreiber PhD, Phone: [phone] Performed at: [facility] [address] [id number] [place] Department Manager: Leyla Britt MD, Phone: [phone] Performed By: #### F ER, HEPATIC, FE and TIBC, PT, LIPID, CBC ####[facility] [place] [address] [facility]#### HBCAB, HBSAG, ALPHA PHEN, REYNALDO RFX ADD ON, HBSAB, CERULOP, SMAB, HCV RX PCR ####[facility] , Aspartate aminotransferase [ Enzymatic activity/volume] in Serum or PlasmaOrdered By: Forest Giordano on 09-25-2023 AST [Catalytic activity/Vol] 44 U/L High 13-39 [facility] Comment on above: Performed By: #### F ER, HEPATIC, FE and TIBC, PT, LIPID, CBC ####[address]#### HBCAB, HBSAG, ALPHA PHEN, REYNALDO RFX ADD ON, HBSAB, CERULOP, SMAB, HCV RX PCR ####[facility] , Automated basophil %Ordered By: Forest Giordano on 09-25-2023 Basophils/100 WBC (Bld) 0.8 % Normal . [facility] Comment on above: Performed By: #### F ER, HEPATIC, FE and TIBC, PT, LIPID, CBC ####[address]#### HBCAB, HBSAG, ALPHA PHEN, REYNALDO RFX ADD ON, HBSAB, CERULOP, SMAB, HCV RX PCR ####[facility] , Automated basophil countOrde red By: Forest Giordano on 09-25-2023 Basophils (Bld) [#/Vol] 0.1 10*3/uL Normal 0.0-0.2 [facility] Comment on above: Result Comment: PERF ORMED BY: [facility] [address] [place] [address] PATHOLOGIST OPERATIONS DIRECTOR LORRAINE DIETZ M.D. Performed By: #### F ER, HEPATIC, FE and TIBC, PT, LIPID, CBC ####[address]#### HBCAB, HBSAG, ALPHA PHEN, REYNALDO RFX ADD ON, HBSAB, CERULOP, SMAB, HCV RX PCR ####[facility] , Automated blood monocyte cou ntOrdered By: Forest Giordano on 09-25-2023 Monocytes (Bld) [#/Vol] 0.5 10*3/uL Normal 0.0-0.8 [facility] Comment on above: Performed By: #### F ER, HEPATIC, FE and TIBC, PT, LIPID, CBC ####[place] [address] [address]#### HBCAB, HBSAG, ALPHA PHEN, REYNALDO RFX ADD ON, HBSAB, CERULOP, SMAB, HCV RX PCR ####[facility] , Automated eosinophil %Ordere d By: Forest Giordano on 09-25-2023 Eosinophils/100 WBC (Bld) 2.1 % Normal . [facility] Comment on above: Performed By: #### F ER, HEPATIC, FE and TIBC, PT, LIPID, CBC ####[address]#### HBCAB, HBSAG, ALPHA PHEN, REYNALDO RFX ADD ON, HBSAB, CERULOP, SMAB, HCV RX PCR ####[facility] , Automated eosinophil countOr dered By: Forest Giordano on 09-25-2023 Eosinophils (Bld) [#/Vol] 0.2 10*3/uL Normal 0.0-0.45 [facility] Comment on above: Performed By: #### F ER, HEPATIC, FE and TIBC, PT, LIPID, CBC ####[place] [address] [place]#### HBCAB, HBSAG, ALPHA PHEN, REYNALDO RFX ADD ON, HBSAB, CERULOP, SMAB, HCV RX PCR ####[facility] , Automated monocyte %Ordered By: Forest Giordnao on 09-25-2023 Monocytes/100 WBC (Bld) 6.8 % Normal . [facility] Comment on above: Performed By: #### F ER, HEPATIC, FE and TIBC, PT, LIPID, CBC ####[place] [address] [place]#### HBCAB, HBSAG, ALPHA PHEN, REYNALDO RFX ADD ON, HBSAB, CERULOP, SMAB, HCV RX PCR ####[facility] , Automated neutrophil %Ordere d By: Forest Giordano on 09-25-2023 Neutrophils/100 WBC (Bld) 47.6 % Normal . [facility] Comment on above: Performed By: #### F ER, HEPATIC, FE and TIBC, PT, LIPID, CBC ####[facility]#### HBCAB, HBSAG, ALPHA PHEN, REYNALDO RFX ADD ON, HBSAB, CERULOP, SMAB, HCV RX PCR ####[facility] , Bilirubin.direct [Mass/volum e] in Serum or PlasmaOrdered By: Forest Giordano on 09-25-2023 Bilirubin.direct [Mass/Vol] 0.10 mg/dL 0.03-0.18 [facility] Bilirubin.total [Mass/volume ] in Serum or PlasmaOrdered By: Forest Giordano on 09-25-2023 Bilirubin [Mass/Vol] 0.6 mg/dL Normal 0.3-1.[address] [facility] Comment on above: Performed By: #### F ER, HEPATIC, FE and TIBC, PT, LIPID, CBC ####[place] [address] [address]#### HBCAB, HBSAG, ALPHA PHEN, REYNALDO RFX ADD ON, HBSAB, CERULOP, SMAB, HCV RX PCR ####[facility] , Ceruloplasminon 09-25-2023 Ceruloplasmin 22.9 mg/dL Normal 19.0-39.0 [facility] Comment on above: Result Comment: Perf ormed at: - [facility] [address] [id number] [place] Department Manager: Dhruv Schreiber PhD, Phone: [phone] PERFORMED BY: [facility] [address] [place] [address] PATHOLOGIST OPERATIONS DIRECTOR LORRAINE DIETZ M.D. Performed By: #### F ER, HEPATIC, FE and TIBC, PT, LIPID, CBC ####[facility] [address]#### HBCAB, HBSAG, ALPHA PHEN, REYNALDO RFX ADD ON, HBSAB, CERULOP, SMAB, HCV RX PCR ####[facility] , Cholesterol [Mass/volume] in Serum or PlasmaOrdered By: Forest Giordano on 09-25-2023 Cholesterol [Mass/Vol] 199 mg/dL Normal 140-200 [facility] Comment on above: Chol less than 200 m g/dl low riskChol 201-239 mg/dl borderline riskChol 240 mg/dl and greater high risk Result Comment: Chol less than 200 mg/dl low risk Chol 201-239 mg/dl borderline risk Chol 240 mg/dl and greater high risk Performed By: #### F ER, HEPATIC, FE and TIBC, PT, LIPID, CBC ####[facility] [address]#### HBCAB, HBSAG, ALPHA PHEN, REYNALDO RFX ADD ON, HBSAB, CERULOP, SMAB, HCV RX PCR ####[facility] , Cholesterol in LDL Calc [Mas s/Vol]Ordered By: Forest Giordano on 09-25-2023 Cholesterol in LDL [Mass/Vol] 122 mg/dL 0-100 [facility] Comment on above: LDL ATP III CLASSIFI CATIONLDL less than 100 mg/dL OptimalLDL 100-129 mg/dL Near or above optimalLDL 130-159 mg/dL Borderline highLDL 160-189 mg/dL HighLDL greater than 189 mg/dL Very high Cholesterol in VLDL Calc [Ma ss/Vol]Ordered By: Forest Giordano on 09-25-2023 Cholesterol in VLDL [Mass/Vol] 17 mg/dL [facility] Complete Blood Count Auto Di ffon 09-25-2023 Mean Corpuscular HGB Conc 34.2 g/dL Normal 32.0-35.0 [facility] Comment on above: Performed By: #### F ER, HEPATIC, FE and TIBC, PT, LIPID, CBC ####[facility] [place] [address] [place]#### HBCAB, HBSAG, ALPHA PHEN, REYNALDO RFX ADD ON, HBSAB, CERULOP, SMAB, HCV RX PCR ####[facility] , NRBC% 0.1 /100{WBC} Normal 0-0.5 [facility] Comment on above: Performed By: #### F ER, HEPATIC, FE and TIBC, PT, LIPID, CBC ####[place] [address] [address]#### HBCAB, HBSAG, ALPHA PHEN, REYNALDO RFX ADD ON, HBSAB, CERULOP, SMAB, HCV RX PCR ####[facility] , DNA double strand Ab [Units/ volume] in SerumOrdered By: Forest Giordano on 09-25-2023 DNA double strand Ab Qn (S) 1 [IU]/mL 0-9 [facility] Comment on above: Negative <5 Equivoca l 5 - 9 Positive >9 Erythrocyte distribution wid th [Ratio] by Automated countOrdered By: Forest Giordano on 09-25-2023 Erythrocyte distribution width (RBC) [Ratio] 13.8 % Normal 11.9-15.3 [facility] Comment on above: Performed By: #### F ER, HEPATIC, FE and TIBC, PT, LIPID, CBC ####[address]#### HBCAB, HBSAG, ALPHA PHEN, REYNALDO RFX ADD ON, HBSAB, CERULOP, SMAB, HCV RX PCR ####[facility] , Erythrocytes [#/volume] in B lood by Automated countOrdered By: Forest Giordano on 09-25-2023 RBC (Bld) [#/Vol] 4.81 10*6/uL Normal 3.60-5.00 [facility] Comment on above: Performed By: #### F ER, HEPATIC, FE and TIBC, PT, LIPID, CBC ####[address]#### HBCAB, HBSAG, ALPHA PHEN, REYNALDO RFX ADD ON, HBSAB, CERULOP, SMAB, HCV RX PCR ####[facility] , Ferritin [Mass/volume] in Se rum or PlasmaOrdered By: Forest Giordano on 09-25-2023 Ferritin [Mass/Vol] 153.5 ng/mL Normal 11.0-306.[address] [facility] Comment on above: Performed By: #### F ER, HEPATIC, FE and TIBC, PT, LIPID, CBC ####[address]#### HBCAB, HBSAG, ALPHA PHEN, REYNALDO RFX ADD ON, HBSAB, CERULOP, SMAB, HCV RX PCR ####[facility] , Hematocrit [Volume Fraction] of Blood by Automated countOrdered By: Forest Giordano on 09-25-2023 Hematocrit (Bld) [Volume fraction] 43.4 % Normal 34.0-46.4 [facility] Comment on above: Performed By: #### F ER, HEPATIC, FE and TIBC, PT, LIPID, CBC ####[address]#### HBCAB, HBSAG, ALPHA PHEN, REYNALDO RFX ADD ON, HBSAB, CERULOP, SMAB, HCV RX PCR ####[facility] , Hemoglobin [Mass/volume] in BloodOrdered By: Forest Giordano on 09-25-2023 Hemoglobin (Bld) [Mass/Vol] 14.9 g/dL Normal 11.8-15.4 [facility] Comment on above: Performed By: #### F ER, HEPATIC, FE and TIBC, PT, LIPID, CBC ####[address]#### HBCAB, HBSAG, ALPHA PHEN, REYNALDO RFX ADD ON, HBSAB, CERULOP, SMAB, HCV RX PCR ####[facility] , Hep C Ab wRfx to Qnt PCRon 0 09-25-2023 Hepatitis C Virus Antibody Non-Reactive Normal Non Reactive [facility] Comment on above: Performed By: #### F ER, HEPATIC, FE and TIBC, PT, LIPID, CBC ####[place] [id number] [address]#### HBCAB, HBSAG, ALPHA PHEN, REYNALDO RFX ADD ON, HBSAB, CERULOP, SMAB, HCV RX PCR ####[facility] , Interpretation Hepatitis C Normal . [facility] Comment on above: Result Comment: Not infected with HCV unless early or acute infection is suspected (which may be delayed in an immunocompromised individual), or other evidence exists to indicate HCV infection. Performed By: #### F ER, HEPATIC, FE and TIBC, PT, LIPID, CBC ####[address]#### HBCAB, HBSAG, ALPHA PHEN, REYNALDO RFX ADD ON, HBSAB, CERULOP, SMAB, HCV RX PCR ####[facility] , Hepatic Panelon 09-25-2023 Albumin [Mass/Vol] 4.2 g/dL Normal 3.5-5.7 [facility] Comment on above: Performed By: #### F ER, HEPATIC, FE and TIBC, PT, LIPID, CBC ####[address]#### HBCAB, HBSAG, ALPHA PHEN, REYNALDO RFX ADD ON, HBSAB, CERULOP, SMAB, HCV RX PCR ####[facility] , Bilirubin,Indirect 0.5 mg/dL Normal [facility] Comment on above: Performed By: #### F ER, HEPATIC, FE and TIBC, PT, LIPID, CBC ####[address]#### HBCAB, HBSAG, ALPHA PHEN, REYNALDO RFX ADD ON, HBSAB, CERULOP, SMAB, HCV RX PCR ####[facility] , Bilirubin.indirect [Mass/Vol] 0.10 mg/dL Normal 0.03-0.18 [facility] Comment on above: Performed By: #### F ER, HEPATIC, FE and TIBC, PT, LIPID, CBC ####[address]#### HBCAB, HBSAG, ALPHA PHEN, REYNALDO RFX ADD ON, HBSAB, CERULOP, SMAB, HCV RX PCR ####[facility] , Hepatitis B Core Antibodyon 09-25-2023 Hepatitis B Core Antibody Negative Normal Negative [facility] Comment on above: Result Comment: Perf ormed at: - [facility] [address] [id number] [place] Department Manager: Dhruv Schreiber PhD, Phone: [phone] Performed By: #### F ER, HEPATIC, FE and TIBC, PT, LIPID, CBC ####[address]#### HBCAB, HBSAG, ALPHA PHEN, REYNALDO RFX ADD ON, HBSAB, CERULOP, SMAB, HCV RX PCR ####[facility] , Hepatitis B Surface Antibody on 09-25-2023 Hepatitis B Surface Antibody Non-Reactive Normal . [facility] Comment on above: Result Comment: Non Reactive: Inconsistent with immunity, less than 10 mIU/mL Reactive: Consistent with immunity, greater than 9.9 mIU/mL Performed By: #### F ER, HEPATIC, FE and TIBC, PT, LIPID, CBC ####[address]#### HBCAB, HBSAG, ALPHA PHEN, REYNALDO RFX ADD ON, HBSAB, CERULOP, SMAB, HCV RX PCR ####[facility] , Hepatitis B Surface Antigeno n 09-25-2023 HBsAg Screen Negative Normal Negative [facility] Comment on above: Result Comment: PERF ORMED BY: [facility] [address] [place] [address] PATHOLOGIST OPERATIONS DIRECTOR LORRAINE DIETZ M.D. Performed By: #### F ER, HEPATIC, FE and TIBC, PT, LIPID, CBC ####[address]#### HBCAB, HBSAG, ALPHA PHEN, REYNALDO RFX ADD ON, HBSAB, CERULOP, SMAB, HCV RX PCR ####[facility] , Hepatitis B virus surface Ab [Presence] in SerumOrdered By: Forest Giordano on 09-25-2023 HBV surface Ab Ql (S) Non-Reactive . [facility] Comment on above: Non Reactive: Incons istent with immunity, less than 10 mIU/mL Reactive: Consistent with immunity, greater than 9.9 mIU/mL Hepatitis B virus surface Ag [Presence] in Serum or Plasma by ImmunoassayOrdered By: Forest Giordano on 09-25-2023 HBV surface Ag IA Ql Negative Negative [facility] Hepatitis C virus IgG Ab [Pr esence] in Serum or Plasma by ImmunoassayOrdered By: Forest Giordano on 09-25-2023 HCV IgG IA Ql Non-Reactive Non Reactive [facility] INR in Platelet poor plasma by Coagulation assayOrdered By: Forest Giordano on 09-25-2023 INR Coag (PPP) [Relative time] 1.0 {INR} Normal [facility] Comment on above: INR Therapeutic Rang [...] heart valves: 3 - 4.5 PERFORMED BY: [facility] [address] [place] [address] PATHOLOGIST OPERATIONS DIRECTOR LORRAINE DIETZ M.D. Performed By: #### F ER, HEPATIC, FE and TIBC, PT, LIPID, CBC ####[facility] [id number] [place] [address] [place]#### HBCAB, HBSAG, ALPHA PHEN, REYNALDO RFX ADD ON, HBSAB, CERULOP, SMAB, HCV RX PCR ####[facility] , Iron [Mass/volume] in Serum or PlasmaOrdered By: Forest Giordano on 09-25-2023 Iron [Mass/Vol] 78 ug/dL Normal 50-212 [facility] Comment on above: Performed By: #### F ER, HEPATIC, FE and TIBC, PT, LIPID, CBC ####[place] [id number] [address]#### HBCAB, HBSAG, ALPHA PHEN, REYNALDO RFX ADD ON, HBSAB, CERULOP, SMAB, HCV RX PCR ####[facility] , Iron and TIBC Profileon 09-06 % Iron Saturation 23.6 % Normal 20-50 [facility] Comment on above: Performed By: #### F ER, HEPATIC, FE and TIBC, PT, LIPID, CBC ####[place] [id number] [address]#### HBCAB, HBSAG, ALPHA PHEN, REYNALDO RFX ADD ON, HBSAB, CERULOP, SMAB, HCV RX PCR ####[facility] , Total Iron Binding Capacity 330 ug/dL Normal 255-450 [facility] Comment on above: Performed By: #### F ER, HEPATIC, FE and TIBC, PT, LIPID, CBC ####[place] [address] [place]#### HBCAB, HBSAG, ALPHA PHEN, REYNALDO RFX ADD ON, HBSAB, CERULOP, SMAB, HCV RX PCR ####[facility] , Iron binding capacity [Mass/ volume] in Serum or PlasmaOrdered By: Forest Giordano on 09-25-2023 Iron binding capacity [Mass/Vol] 330 ug/dL 255-450 [facility] Iron saturation [Mass Fracti on] in Serum or PlasmaOrdered By: Forest Giordano on 09-25-2023 Iron saturation [Mass fraction] 23.6 % 20-50 [facility] Leukocytes [#/volume] correc toya for nucleated erythrocytes in Blood by Automated counOrdered By: Forest Giordano on 09-25-2023 WBC corrected for nucl RBC Auto (Bld) [#/Vol] 7.2 10*3/uL 3.8-11.6 [facility] Leukocytes [#/volume] in Blo od by Automated countOrdered By: Forest Giordano on 09-25-2023 WBC (Bld) [#/Vol] 7.2 10*3/uL Normal 3.8-11.6 [facility] Comment on above: Performed By: #### F ER, HEPATIC, FE and TIBC, PT, LIPID, CBC ####[facility] [id number]#### HBCAB, HBSAG, ALPHA PHEN, REYNALDO RFX ADD ON, HBSAB, CERULOP, SMAB, HCV RX PCR ####[facility] , Lipid Panelon 09-25-2023 LDL Cholesterol,Calculated 122 mg/dL High 0-100 [facility] Comment on above: Result Comment: LDL ATP III CLASSIFICATION LDL less than 100 mg/dL Optimal LDL 100-129 mg/dL Near or above optimal LDL 130-159 mg/dL Borderline high LDL 160-189 mg/dL High LDL greater than 189 mg/dL Very high Performed By: #### F ER, HEPATIC, FE and TIBC, PT, LIPID, CBC ####[facility] [id number] [place] [address] [place]#### HBCAB, HBSAG, ALPHA PHEN, REYNALDO RFX ADD ON, HBSAB, CERULOP, SMAB, HCV RX PCR ####[facility] , Triglyceride w/Reflex 89 mg/dL Normal 0-149 [facility] Comment on above: Result Comment: TRIG ATP III CLASSIFICATION TRIG less than 150 mg/dL Normal TRIG 150-199 mg/dL Borderline high TRIG 200-500 mg/dL High TRIG greater than 500 mg/dL Very high Standard traceable to the Center for Disease Conrtrol and Prevention (CDC) test method. Performed By: #### F ER, HEPATIC, FE and TIBC, PT, LIPID, CBC ####[facility] [place] [address] [place]#### HBCAB, HBSAG, ALPHA PHEN, REYNALDO RFX ADD ON, HBSAB, CERULOP, SMAB, HCV RX PCR ####[facility] , VLDL CHOLESTEROL 17 mg/dL Normal [facility] Comment on above: Performed By: #### F ER, HEPATIC, FE and TIBC, PT, LIPID, CBC ####[address]#### HBCAB, HBSAG, ALPHA PHEN, REYNALDO RFX ADD ON, HBSAB, CERULOP, SMAB, HCV RX PCR ####[facility] , Lymphocytes [#/volume] in Bl ood by Automated countOrdered By: Forest Giordano on 09-25-2023 Lymphocytes (Bld) [#/Vol] 3.1 10*3/uL Normal 1.00-4.8 [facility] Comment on above: Performed By: #### F ER, HEPATIC, FE and TIBC, PT, LIPID, CBC ####[address]#### HBCAB, HBSAG, ALPHA PHEN, REYNALDO RFX ADD ON, HBSAB, CERULOP, SMAB, HCV RX PCR ####[facility] , Lymphocytes/100 leukocytes i n Blood by Automated countOrdered By: Forest Giordano on 09-25-2023 Lymphocytes/100 WBC (Bld) 42.7 % Normal . [facility] Comment on above: Performed By: #### F ER, HEPATIC, FE and TIBC, PT, LIPID, CBC ####[place] [address] [place]#### HBCAB, HBSAG, ALPHA PHEN, REYNALDO RFX ADD ON, HBSAB, CERULOP, SMAB, HCV RX PCR ####[facility] , MCH [Entitic mass] by Automa toya countOrdered By: Forest Giordano on 09-25-2023 MCH (RBC) [Entitic mass] 30.9 pg Normal 24.7-34.3 [facility] Comment on above: Performed By: #### F ER, HEPATIC, FE and TIBC, PT, LIPID, CBC ####[place] [id number] [address]#### HBCAB, HBSAG, ALPHA PHEN, REYNALDO RFX ADD ON, HBSAB, CERULOP, SMAB, HCV RX PCR ####[facility] , MCHC Auto (RBC) [Mass/Vol]Or dered By: Forest Giordano on 09-25-2023 MCHC (RBC) [Mass/Vol] 34.2 g/dL 32.0-35.0 [facility] MCV [Entitic volume] by Auto mated countOrdered By: Forest Giordano on 09-25-2023 MCV (RBC) [Entitic vol] 90.3 fL Normal 80-100 [facility] Comment on above: Performed By: #### F ER, HEPATIC, FE and TIBC, PT, LIPID, CBC ####[place] [id number] [address]#### HBCAB, HBSAG, ALPHA PHEN, REYNALDO RFX ADD ON, HBSAB, CERULOP, SMAB, HCV RX PCR ####[facility] , Neutrophils [#/volume] in Bl ood by Automated countOrdered By: Forest Giordano on 09-25-2023 Neutrophils (Bld) [#/Vol] 3.4 10*3/uL Normal 1.8-7.7 [facility] Comment on above: Performed By: #### F ER, HEPATIC, FE and TIBC, PT, LIPID, CBC ####[place] [id number] [address]#### HBCAB, HBSAG, ALPHA PHEN, REYNALDO RFX ADD ON, HBSAB, CERULOP, SMAB, HCV RX PCR ####[facility] , No Panel InformationOrdered By: Forest Giordano on 09-25-2023 Anti-Nuclear Antibody Interpret See comment . [facility] Comment on above: Autoantibody Disease Association --------- Condition Frequency ---------Antinuclear Antibody, SLE, mixed connectiveDirect (REYNALDO-D) tissue diseases ---------dsDNA SLE 40 - 60% ---------Chromatin Drug induced SLE 90% SLE 48 - 97% ---------SSA (Ro) SLE 25 - 35% Sjogren's Syndrome 40 - 70% Lupus 100% ---------SSB (La) SLE 10% Sjogren's Syndrome 30% ---------Sm (anti-Llanes) SLE 15 - 30% ---------WELDER HELPER Mixed Connective Tissue Disease 95%(U1 nRNP, SLE 30 - 50%anti-ribonucleoprotein) Polymyositis and/or Dermatomyositis 20% ---------Scl-70 (antiDNA Scleroderma (diffuse) 20 - 35%topoisomerase) Crest 13% ---------Shey-1 Polymyositis and/or Dermatomyositis 20 - 40% ---------Centromere B Scleroderma - Crest variant 80%Performed at: [employer] - [facility] [address] [id number] Director: Dhruv Schreiber PhD, Phone: [phone] Hepatitis B Core Total Antibody Negative Negative [facility] Comment on above: Performed at: [employer] - [facility] [address] [id number] Director: Dhruv Schreiber PhD, Phone: [phone] Hepatitis C Interpretation See comment . [facility] Comment on above: Not infected with HC V unless early or acute infection issuspected (which may be delayed in an immunocompromisedindividual), or other evidence exists to indicate HCVinfection. WELDER HELPER Antibody <0.2 AI 0.0-0.9 [facility] Nucleated erythrocytes [Pres ence] in Blood by Automated countOrdered By: Forest Giordano on 09-25-2023 Nucleated RBC Auto Ql (Bld) 0.1 /100{WBC} 0-0.5 [facility] Platelet mean volume [Entiti c volume] in Blood by Automated countOrdered By: Forest Giordano on 09-25-2023 Platelet mean volume (Bld) [Entitic vol] 8.9 fL Normal 6.3-10.7 [facility] Comment on above: Performed By: #### F ER, HEPATIC, FE and TIBC, PT, LIPID, CBC ####[place] [id number] [address]#### HBCAB, HBSAG, ALPHA PHEN, REYNALDO RFX ADD ON, HBSAB, CERULOP, SMAB, HCV RX PCR ####[facility] , Platelets [#/volume] in Bloo d by Automated countOrdered By: Forest Giordano on 09-25-2023 Platelets (Bld) [#/Vol] 179 10*3/uL Normal 150-450 [facility] Comment on above: Performed By: #### F ER, HEPATIC, FE and TIBC, PT, LIPID, CBC ####[address]#### HBCAB, HBSAG, ALPHA PHEN, REYNALDO RFX ADD ON, HBSAB, CERULOP, SMAB, HCV RX PCR ####[facility] , Protein [Mass/volume] in Ser um or PlasmaOrdered By: Forest Giordano on 09-25-2023 Protein [Mass/Vol] 6.8 g/dL Normal 6.4-8.9 [facility] Comment on above: Performed By: #### F ER, HEPATIC, FE and TIBC, PT, LIPID, CBC ####[address]#### HBCAB, HBSAG, ALPHA PHEN, REYNALDO RFX ADD ON, HBSAB, CERULOP, SMAB, HCV RX PCR ####[facility] , Prothrombin time (PT)Ordered By: Forest Giordano on 09-25-2023 PT Coag (PPP) [Time] 11.2 s Normal 9.0-12.[address] [facility] Comment on above: A hematocrit value g reater than 55% may lead to inaccurate results in coagulation testing. Patients having hematocrit values >55% require a special collection tube for coagulation studies. Please contact the laboratory at [phone] for redraw instructions. Result Comment: A he matocrit value greater than 55% may lead to inaccurate results in coagulation testing. Patients having hematocrit values >55% require a special collection tube for coagulation studies. Please contact the laboratory at [phone] for redraw instructions. Performed By: #### F ER, HEPATIC, FE and TIBC, PT, LIPID, CBC ####[facility] [id number] [place] [id number] [facility]#### HBCAB, HBSAG, ALPHA PHEN, REYNALDO RFX ADD ON, HBSAB, CERULOP, SMAB, HCV RX PCR ####[facility] , Scl-70 antibody assayOrdered By: Forest Giordano on 09-25-2023 SCL-70 extractable nuclear Ab IA Qn (S) >8.0 AI 0.0-0.9 [facility] Serum Shey-1 extractable nucle ar antibody assay (units/volume)Ordered By: Forest Giordano on 09-25-2023 Shey-1 extractable nuclear Ab Qn (S) <0.2 AI 0.0-0.9 [facility] Serum Sjogrens syndrome-A ex tractable nuclear antibody assay (units/volume)Ordered By: Forest Giordano on 09-25-2023 Sjogrens syndrome-A extractable nuclear Ab Qn (S) <0.2 AI 0.0-0.9 [facility] Serum Sjogrens syndrome-B ex tractable nuclear antibody assay (units/volume)Ordered By: Forest Giordano on 09-25-2023 Sjogrens syndrome-B extractable nuclear Ab Qn (S) 0.5 AI 0.0-0.9 [facility] Serum Llanes extractable nucl ear antigen (SHALINI) antibody assay (units/volume)Ordered By: Forest Giordano on 09-25-2023 Llanes extractable nuclear Ab Qn (S) <0.2 AI 0.0-0.9 [facility] Serum [id number] me asurementOrdered By: Forest Giordano on 09-25-2023 Alpha 1 antitrypsin [Mass/Vol] 155 mg/dL 101-187 [facility] Serum centromere protein B a ntibody assay (units/volume)Ordered By: Forest Giordano on 09-25-2023 Centromere protein B Ab Qn (S) <0.2 AI 0.0-0.9 [facility] Serum globulin measurement b y calculation (mass/volume)Ordered By: Forest Giordano on 09-25-2023 Globulin (S) [Mass/Vol] 2.6 g/dL Normal [facility] Comment on above: Performed By: #### F ER, HEPATIC, FE and TIBC, PT, LIPID, CBC ####[facility] [id number]#### HBCAB, HBSAG, ALPHA PHEN, REYNALDO RFX ADD ON, HBSAB, CERULOP, SMAB, HCV RX PCR ####[facility] , Serum or plasma albumin/glob ulin mass ratioOrdered By: Forest Giordano on 09-25-2023 Albumin/Globulin [Mass ratio] 1.6 {ratio} Normal [facility] Comment on above: Performed By: #### F ER, HEPATIC, FE and TIBC, PT, LIPID, CBC ####[facility] [id number] [place] [address] [place]#### HBCAB, HBSAG, ALPHA PHEN, REYNALDO RFX ADD ON, HBSAB, CERULOP, SMAB, HCV RX PCR ####[facility] , Serum or plasma alpha 1 anti trypsin phenotyping identification by immunofixationOrdered By: Forest Giordano on 09-25-2023 Alpha 1 antitrypsin phenotyping Immunofixation Nom Mm . [facility] Comment on above: Phenotype Population A-1-AT [...] reference. Ranges used to confirm phenotype.Performed at: - [facility] [address] [id number] Director: Dhruv Schreiber PhD, Phone: [phone] at: [facility] [address] [id number] Director: Leyla Britt MD, Phone: [phone] Serum or plasma ceruloplasmi n measurement (mass/volume)Ordered By: Forest Giordano on 09-25-2023 Ceruloplasmin [Mass/Vol] 22.9 mg/dL 19.0-39.0 [facility] Comment on above: Performed at: [facility] [address] [id number] Director: Dhruv Schreiber PhD, Phone: [phone] Serum or plasma chromatin an tibody assay (units/volume)Ordered By: Forest Giordano on 09-25-2023 Chromatin Ab Qn <0.2 AI 0.0-0.9 [facility] Serum or plasma free cefurox latesha measurement (mass/volume)Ordered By: Forest Giordano on 09-25-2023 Cefuroxime free [Mass/Vol] Positive Negative [facility] Serum or plasma high density lipoprotein (HDL) cholesterol measurementOrdered By: Forest Giordano on 09-25-2023 Cholesterol in HDL [Mass/Vol] 59 mg/dL Normal 23-92 [facility] Comment on above: HDL CHOL ATP-III CLA SSIFICATION Cardiovascular RiskHDL > or equal to 60 mg/dL LOWHDL < 40 mg/dL HIGH Result Comment: HDL CHOL ATP-III CLASSIFICATION Cardiovascular Risk HDL > or equal to 60 mg/dL LOW HDL < 40 mg/dL HIGH Performed By: #### F ER, HEPATIC, FE and TIBC, PT, LIPID, CBC ####[facility] [id number]#### HBCAB, HBSAG, ALPHA PHEN, REYNALDO RFX ADD ON, HBSAB, CERULOP, SMAB, HCV RX PCR ####[facility] , Serum or plasma non-glucuron idated bilirubin measurement (mass/volume)Ordered By: Forest Giordano on 09-25-2023 Bilirubin.indirect [Mass/Vol] 0.5 mg/dL [facility] Serum or plasma total choles terol/high density lipoprotein (HDL) cholesterol mass ratOrdered By: Forest Giordano on 09-25-2023 Cholesterol.total/Nanci sterol in HDL [Mass ratio] 3.4 {ratio} Normal <5.0 [facility] Comment on above: Result Comment: PERF ORMED BY: [facility] [address] [place] [address] PATHOLOGIST OPERATIONS DIRECTOR LORRAINE DIETZ M.D. Performed By: #### F ER, HEPATIC, FE and TIBC, PT, LIPID, CBC ####[address]#### HBCAB, HBSAG, ALPHA PHEN, REYNALDO RFX ADD ON, HBSAB, CERULOP, SMAB, HCV RX PCR ####[facility] , Smooth Muscle Antibodyon Smooth Muscle Antibody 129 High 0-19 [facility] Comment on above: Result Comment: Nega tive 0 - 19 Weak positive 20 - 30 Moderate to strong positive >30 Actin Antibodies are found in 52-85% of patients with autoimmune hepatitis or chronic active hepatitis and in 22% of patients with primary biliary cirrhosis. Performed at: [facility] [address] [id number] [place] Department Manager: Dhruv Schreiber PhD, Phone: [phone] PERFORMED BY: [facility] [address] [place] [address] PATHOLOGIST OPERATIONS DIRECTOR LORRAINE DIETZ M.D. Performed By: #### F ER, HEPATIC, FE and TIBC, PT, LIPID, CBC ####[place] [id number] [place]#### HBCAB, HBSAG, ALPHA PHEN, REYNALDO RFX ADD ON, HBSAB, CERULOP, SMAB, HCV RX PCR ####[facility] , Transferrin [Mass/volume] in Serum or PlasmaOrdered By: Forest Giordano on 09-25-2023 Transferrin [Mass/Vol] 236 mg/dL Normal 203-362 [facility] Comment on above: Performed By: #### F ER, HEPATIC, FE and TIBC, PT, LIPID, CBC ####[facility] [id number]#### HBCAB, HBSAG, ALPHA PHEN, REYNALDO RFX ADD ON, HBSAB, CERULOP, SMAB, HCV RX PCR ####[facility] , Triglyceride [Mass/volume] i n Serum or PlasmaOrdered By: Forest Giordano on 09-25-2023 Triglyceride [Mass/Vol] 89 mg/dL 0-149 [facility] Comment on above: TRIG ATP III CLASSIF ICATIONTRIG less than 150 mg/dL NormalTRIG 150-199 mg/dL Borderline highTRIG 200-500 mg/dL High TRIG greater than 500 mg/dL Very highStandard traceable to the Center for Disease Conrtrol and Prevention (CDC) test method. US liveron 09-25-2023 liver [facility] [address] [place] [address] [place] [address] Ultrasound Report Signed Patient: Dejah Dykes MR#: [id number] : 1970 Acct:[id number] Age/Sex: 53 / F ADM Date: 09/25/23 Loc: Room: Type: [facility] Attending Dr: Forest Giordano APRN Ordering Provider: [...] Alka Earl M.D.09/25/2023 3:07 PM Dictation Location: [place] [address] Tech: Lucy Cm Transcribed By: YADIRA 09/25/23 1507 Dictated By: Alka Earl MD 09/25/23 1505 Signed By: 09/25/23 1507 Normal [facility] CNOVon 09-24-2023 CNOV Office Visit (STED) -- DEJAH DYKES ([id number]) 1970 F Date Time Provider Department 09/24/23 1:00 PM ALFREDO CRUZ During your visit today, we recorded the following information about you: Pulse Blood pressure Weight Height 84/minute 145/84 115 kg 1.626 m Alfredo Cruz MD 09/24/2023 2:51 PM Signed Endocrinology and Metabolism [facility] - Initial Visit Patient Name: Dejah Dykes Referring Provider: Elly Galicia [address] [place] [address] My final recommendations will be communicated back [...] managed Social: 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 No pertinent surgical hist (more content not included)... Normal [facility] Comprehensive metabolic 2000 panelon 09-24-2023 Albumin [Mass/Vol] 4.1 g/dL Normal 3.9-4.9 [facility] Comment on above: Order Comment: Speci men Type: BLOOD SPECIMEN Ordering Facility: [facility] Address: [address] [place] [id number] Performed By: #### 3 024-7, 3016-3, 90928-9 #### [facility] CLIA [id number] [address] [place] [address] [place] ALP [Catalytic activity/Vol] 83 U/L Normal 34-123 [facility] Comment on above: Order Comment: Speci men Type: BLOOD SPECIMEN Ordering Facility: [facility] Address: [address] [place] [address] Performed By: #### 3 024-7, 3016-3, 79031-9 #### [facility] CLIA [id number] [address] [place] [address] [place] ALT [Catalytic activity/Vol] 63 U/L High 7-38 [facility] Comment on above: Order Comment: Speci men Type: BLOOD SPECIMEN Ordering Facility: [facility] Address: [address] [place] [address] Performed By: #### 3 024-7, 3016-3, 66173-4 #### [facility] CLIA [id number] [address] [place] [address] [place] Anion gap [Moles/Vol] 13 mmol/L Normal 9-18 [facility] Comment on above: Order Comment: Speci men Type: BLOOD SPECIMEN Ordering Facility: [facility] Address: [address] [place] [address] Performed By: #### 3 024-7, 3016-3, 97679-3 #### [facility] CLIA [id number] [address] [place] [address] [place] AST [Catalytic activity/Vol] 68 U/L High 13-35 [facility] Comment on above: Order Comment: Speci men Type: BLOOD SPECIMEN Ordering Facility: [facility] Address: [address] [place] [address] Performed By: #### 3 024-7, 3016-3, 79524-6 #### [facility] CLIA [id number] [address] [place] [address] [place] Bilirubin [Mass/Vol] 0.6 mg/dL Normal 0.2-1.3 [facility] Comment on above: Order Comment: Speci men Type: BLOOD SPECIMEN Ordering Facility: [facility] Address: [place] [address] Performed By: #### 3 024-7, 3016-3, 50724-9 #### [facility] CLIA [id number] [address] [place] [address] [place] Calcium [Mass/Vol] 9.7 mg/dL Normal 8.5-10.2 [facility] Comment on above: Order Comment: Speci men Type: BLOOD SPECIMEN Ordering Facility: [facility] Address: [place] [address] Performed By: #### 3 024-7, 6-3, 13174-9 #### [facility] CLIA [id number] [address] [place] [address] [place] Chloride [Moles/Vol] 104 mmol/L Normal 97-105 [facility] Comment on above: Order Comment: Speci men Type: BLOOD SPECIMEN Ordering Facility: [facility] Address: [place] [address] Performed By: #### 3 024-7, 6-3, 69084-8 #### [facility] CLIA [id number] [address] [place] [address] [place] CO2 [Moles/Vol] 26 mmol/L Normal 22-30 [facility] Comment on above: Order Comment: Speci men Type: BLOOD SPECIMEN Ordering Facility: [facility] Address: [place] [address] Performed By: #### 3 024-7, 6-3, 83000-1 #### [facility] CLIA [id number] [address] [place] [id number] [place] Creatinine [Mass/Vol] 0.73 mg/dL Normal 0.58-0.96 [facility] Comment on above: Order Comment: Pauline giordano Type: BLOOD SPECIMEN Ordering Facility: [facility] Address: [address] [place] [address] Performed By: #### 3 024-7, 3016-3, 30601-0 #### [facility] CLIA [id number] [address] [place] [address] OF [place] Creatinine and Glomerular filtration rate.predicted panel (S/P/Bld) 98 mL/min/1.73m??? Normal >=60 [facility] Comment on above: Order Comment: Pauline giordano Type: BLOOD SPECIMEN Ordering Facility: [facility] Address: [address] [place] [address] Result Comment: Brenda mated Glomerular Filtration Rate [...] GFR. Performed By: #### 3 024-7, 3016-3, 09174-7 #### [facility] CLIA [id number] [address] [place] [address] [place] Glucose [Mass/Vol] 82 mg/dL Normal 74-99 [facility] Comment on above: Order Comment: Pauline giordano Type: BLOOD SPECIMEN Ordering Facility: [facility] Address: [address] [place] [address] Result Comment: The [place] Diabetes Association (ADA) provides guidance for cutoff [...] Standards of Medical Care in Diabetes 2016, [place] Diabetes Association. Diabetes Care. 2016.39(Suppl 1). Performed By: #### 3 024-7, 3016-3, 35884-2 #### [facility] CLIA [id number] [address] [place] [address] [place] Potassium [Moles/Vol] 3.4 mmol/L Low 3.7-5.1 [facility] Comment on above: Order Comment: Speci men Type: BLOOD SPECIMEN Ordering Facility: [facility] Address: [address] [place] [address] Performed By: #### 3 024-7, 6-3, 28101-3 #### [facility] CLIA [id number] [address] [place] [address] [place] Protein [Mass/Vol] 7.2 g/dL Normal 6.3-8.0 [facility] Comment on above: Order Comment: Speci men Type: BLOOD SPECIMEN Ordering Facility: [facility] Address: [address] Performed By: #### 3 024-7, 6-3, 61056-7 #### [facility] CLIA [id number] [address] [place] [address] [place] Sodium [Moles/Vol] 143 mmol/L Normal 136-144 [facility] Comment on above: Order Comment: Speci men Type: BLOOD SPECIMEN Ordering Facility: [facility] Address: [address] [place] [id number] Performed By: #### 3 024-7, 6-3, 09145-6 #### [facility] CLIA [id number] [facility] [place] [id number] [place] Urea nitrogen [Mass/Vol] 8 mg/dL Normal 7-21 [facility] Comment on above: Order Comment: Speci men Type: BLOOD SPECIMEN Ordering Facility: [facility] Address: [address] [place] [id number] Performed By: #### 3 024-7, 3016-3, 76595-8 #### [facility] CLIA [id number] [address] [place] [address] OF [facility] HbA1c (Bld)on 09-24-2023 Average glucose Estimated from glycated hemoglobin (Bld) [Mass/Vol] 120 mg/dL [facility] HbA1c (Bld) [Mass fraction] 5.8 % High 4.3 - 5.6 % [facility] Average glucose Estimated from glycated hemoglobin (Bld) [Mass/Vol] 120 mg/dL Normal [facility] Comment on above: Order Comment: Pauline giordano Type: BLOOD SPECIMEN Ordering Facility: [facility] Address: [address] [place] [address] Result Comment: eAG: (Estimated average glucose) is a calculated value from HgbA1c and is sales representative womens health of the average blood glucose level in the last 2-3 month period. Performed By: #### 5 5454-3 #### [facility] CLIA [id number] [address] [place] [address] HbA1c (Bld) [Mass fraction] 5.8 % High 4.3-5.6 [facility] Comment on above: Order Comment: Pauline giordano Type: BLOOD SPECIMEN Ordering Facility: [facility] Address: [address] [place] [address] Result Comment: Amer ican Diabetes Association guidelines indicate that patients with HgbA1c in the range 5.7-6.4% are at increased risk for development of diabetes, and intervention by lifestyle modification may be beneficial. HgbA1c greater or equal to 6.5% is considered diagnostic of diabetes. Performed By: #### 5 5454-3 #### [facility] CLIA [id number] [address] [place] [address] [place] Heart and Vascular Office/Cl inic Noteon 09-14-2023 Heart and Vascular Office/Clinic Note Chief Complaint 6 wk follow up History of Present Illness Djeah Dykes presents today for a follow-up evaluation. She is doing well. She had a hypothyroidism flare last week. This is new to her and notes it creates inflammation in her joints. She is currently taking levothyroxine. She denies a recent increase in her medication. She is being referred to a eye surgeon. She denies taking NSAIDs for her pain. [...] with voice recognition artificial intelligence software, specifically [employer], Acrisure and or ENEFpro. Substitutions may have occurred due to the inherent limitations of voice recognition and artificial intelligence software. ATTESTATION: Documentation services were performed after the patient or guardian consented to allow Status Overload to record this visit. NESTOR forestry biology specialist and provider reviewed before signing. NESTOR: [...] 1 ta (more content not included)... Normal [facility] Comment on above: Result Comment: Elec tronically Signed By: Carlos ARCOS, Forest Jung\.br\Date and Time Signed: 09/14/23 12:38 EST\.br\Electronically Co-Signed By: Laura Bautista\.br\Date and Time Co-Signed: 09/12/23 15:19 EST Consent for Treatmenton Consent for Treatment [id number]#1.00[facility]FF [facility] Physician Orderon 09-12-2023 Physician Order [id number]#1.00TIFF [facility] MA Mamm Screen w/CAD if perf and [...] IS VERY IMPORTANT TO YOUR HEALTH. THE [employer] GUIDELINES RECOMMEND THAT WOMEN 40 [...] Layton Terry MD Transcribed by: JOSE Technologist: [facility] Assessment: BI-RADS Category 1-Negative Recommendation: Normal interval follow-up Normal [facility] Consent for Treatmenton 08-06 Consent for Treatment [id number]#1.00TIFF Normal [facility] Outside Records Officeon Outside Records Office [id number]#1.00TIFF Normal [facility] Referrals Officeon Referrals Office [id number]#1.00TIFF Normal [facility] US LE Venous Duplex Insuffic iency Bilaton 08-14-2023 US LE Venous Duplex Insufficiency Bilat Exam Date/Time: [...] 0.3 Depth: Intrafascial Reflux (sec): None. Normal [facility] Consent for Treatmenton Consent for Treatment [id number]#1.00TIFF [facility] ED Note-Physicianon 08-13-19 ED Note-Physician Basic Information Time Seen: Brian [...] day(s), # 21 tab(s), Refills(s) 0, Pharmacy: [id number], 162, cm, 08/12/23 11:38:00 EST, Height/Length Dosing, [...] Information Lenora SANTOS In 3 days 08/15/[address] [address] [facility] (1) Additional Instructions: Patient Education Hip Pain Attestation Patient seen and evaluated by the physician plumber assistant. Attending physician was present in the emergency department and supervised care. This visit was performed by both the physician and an APC. I performed all aspects of the MDM as documented. This report was transcribed using voice recognition software. Every effort was made to ensure accuracy, however, inadvertently computerized intelligence consultant mistakes may be present. Appropriate healthcare PPE [...] Tab, 10 (more content not included)... Normal [facility] Comment on above: Result Comment: Elec tronically Signed By: Brian Brito PA-C\.br\Date and Time Signed: 08/12/23 14:35 EST\.br\Electronically Co-Signed By: James Richards DO\.br\Date and Time Co-Signed: 08/13/23 08:46 EST Physician Orderon 08-13-2023 Physician Order [id number]#1.00TIFF [facility] RAD - Ultrasound Impressiono n 08-13-2023 RAD - Ultrasound Impression [id number]#1.00TIFF Normal [facility] Consent for Treatmenton Consent for Treatment [id number]#1.00TIFF Normal [facility] Discharge Instructionson Discharge Instructions [id number]#1.00TIFF Normal [facility] ED Clinical Summaryon 2023 ED Clinical Summary (Inserted Image. Carrie ble to display) [place] [id number] ED Clinical Summary Person Information Name: DEJAH DYKES [facility] Age: 53 Years : 1970 Sex: Female Language: Gambian PCP: Lenora SANTOS PA-C Marital Status: Visit [...] 08/12/2023 12:41:21 08/12/2023 12:41:21 08/12/2023 12:41:21 ADDRESS: [address] [place] [id number] PHYS DOC NOTES: MEDICAL INFORMATION: Prescriptions Given: New Medications [id number], [address] [place], [place] [id number], [phone] predniSONE (predniSONE 20 mg Tab) 3 Tablets [...] Follow up: With: Address: When: Lenora SANTOS [address] [place] [id number] Impraise ([employer] In 3 days 08/15/2023 DIAGNOSIS: Hip pain Normal [facility] ED Patient Education Noteon 08-12-2023 ED Patient [...] that cause pain. General instructions ? Take hrlr-nta-aqruekb and prescription medicines only as told by [...] provider. Document Revised: 12/07/2019 Document Reviewed: 12/07/2019 [employer] Patient Education ? 2022 [employer] Normal [facility] ED Patient Summaryon 024 ED Patient Summary (Inserted Image. Carrie ble to display) [place] [id number] Patient Discharge Instructions Person Information Name: DEJAH DYKES Age: 53 Years Arrival Date: 08/12/2023 11:28:07 Discharge Diagnosis: Hip pain Primary Care Physician: Lenora SANTOS PA-C Provider Information Primary Provider: James Richards DO Advanced Art History Instructor:Brian Brito PA-C The exam and treatment you received in the Emergency Department were for an urgent problem and are not intended as complete care. It is important that you follow up with a doctor, nurse practitioner, or physician?s plumber assistant for ongoing care. If your symptoms [...] Follow-up Instructions: With: Address: When: Lenora SANTOS [address] [place] [address] Impraise ([employer] In 3 days 08/15/2023 In the event that this physician does not participate in your insurance network, please consult with your insurance company to find a nearby participating provider. Patient Education Materials: Hip Pain A MESSAGE TO ALL PATIENTS REGARDING OPIOIDS PRESCRIPTION OPIOIDS: WHAT YOU NEED TO KNOW Prescription opioids can be used to help relieve xfwexkno-hs-bycqpc pain and are often prescribed following a [...] be struggling with addiction, tell your health animal care provider and ask for guidance or call [facility]?S National Helpline at 0-583-944-RLFH. v Source: US Department of Health and Human (more content not included)... 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 She is nervous because her blood pressure [...] an upcoming appointment with endocrinology at the [facility] scheduled for 09/2023. Review of Systems PHQ [...] with voice recognition artificial intelligence software, specifically [employer], Acrisure and or ENEFpro. Substitutions may have occurred with voice recognition and artificial intelligence software. ATTESTATION: Documentation services were performed after patient or guardian consented to allow Status Overload to record this visit. NESTOR forestry biology specialist and provider reviewed before signing. NESTOR: [...] of knee (more content not included)... Normal [facility] Comment on above: Result Comment: Elec tronically Signed By: Carlos ARCOS, Forest Jung\.br\Date and Time Signed: 08/11/23 20:37 EST\.br\Electronically Co-Signed By: Emily Jesus\.br\Date and Time Co-Signed: 08/02/23 16:46 EST Insurance Correspondenceon 0 08-08-2023 Insurance Correspondence [id number]#1.00[facility] Consent for Treatmenton 07-06 Consent for Treatment [id number]#1.00[facility] Physician Orderon 08-02-2023 Physician Order [id number]#1.00TIFF [facility] CNOVon 06-24-2023 CNOV Office Visit (ENDOCF ) -- DEJAH DYKES ([id number]) 1970 F Date Time Provider Department 06/24/23 2:40 PM ELLY GALICIA During your visit today, we [...] - Biotin- none - Amiodarone- none - Mentor- none - Head/neck radiation- none Interval history: [...] (BMI) of 40.0 to 44.9 in adult ([facility]) 02/01/2023 Essential hypertension 01/04/2023 Kidney stones 02/01/2023 [...] Pertinent procedure/alexys (more content not included)... Normal [facility] T4 Free SerPl-ncon 023 Free T4 [Mass/Vol] 1.0 ng/dL Normal 0.9-1.7 [facility] Comment on above: Order Comment: Speci men Type: BLOOD SPECIMEN Ordering Facility: [facility] Address: [address] [place] [address] Performed By: #### 3 016-3 3024-7 #### [facility] CLIA [id number] [address] [facility] [place] [address] [place] TSH SerPl-aCncon 06-24-2023 TSH Qn 3.580 m[IU]/L Normal 0.270-4.20 0 [facility] Comment on above: Order Comment: Speci men Type: BLOOD SPECIMEN Ordering Facility: [facility] Address: [address] [place] [address] Performed By: #### 3 016-3, 3024-7 #### [facility] CLIA [id number] [address] [place] [address] [place] Referrals Officeon 3 Referrals Office [id number]#1.00TIFF Normal [facility] Cortisol [Mass/Vol] 0.5 ug/dL Low 4.8-19.5 [facility] Comment on above: Order Comment: Parvini pasquale Type: BLOOD SPECIMEN Ordering Facility: [facility] Address: [address] [place], [place] [address] Result Comment: Prov ided reference range is from 6-10 AM sample collection time. Cortisol Reference Range: 6-10 AM = 4.8-19.5 ug/dL, 4-8 PM = 2.5-11.9 ug/dL Performed By: #### 3 024-7, 3016-3, 91929-4 #### [facility] CLIA [id number] [address] [place] [address] OF [place] DEXAMETHASONEon 05-14-2023 DEXAMETHASONE 376.1 ng/dL Normal [facility] Comment on above: Order Comment: Speci men Type: BLOOD SPECIMEN Ordering Facility: [facility] Address: [address] [place], [place] [address] Result Comment: INTE RPRETIVE INFORMATION: Dexamethasone, Serum [...] developed and its performance characteristics determined by [employer] [facility]. It has not been cleared or approved by the US Food and Drug Administration. This test was performed in a CLIA certified laboratory and is intended for clinical purposes. Performed By: [facility] [address] [place] [address] Table Operator: Nitin Khoury MD, PhD CLIA Number: [id number] Performed By: #### 3 024-7, 3016-3, 61875-5 #### [facility] CLIA [id number] [address] [place] [address] [place] Aldost SerPl-mCncon 05-06-20 Aldosterone [Mass/Vol] 7.6 ng/dL Normal 0.0-<35.4 [facility] Comment on above: Order Comment: Pauline giordano Type: BLOOD SPECIMEN Ordering Facility: [facility] Address: [address] [place] [address] Result Comment: The reference interval for serum/plasma [...] ng/dL. Performed By: #### 3 024-7, 3016-3, 03444-1 #### [facility] CLIA [id number] [address] [place] [address] [place] Basic metabolic 2000 panelon 05-06-2023 Anion gap [Moles/Vol] 11 mmol/L Normal 9-18 [facility] Comment on above: Order Comment: Pauline giordano Type: BLOOD SPECIMEN Ordering Facility: [facility] Address: [address] [place] [address] Performed By: #### 3 024-7, 3016-3, 11081-8 #### [facility] CLIA [id number] [address] [place] [address] [place] Calcium [Mass/Vol] 9.4 mg/dL Normal 8.5-10.2 [facility] Comment on above: Order Comment: Speci men Type: BLOOD SPECIMEN Ordering Facility: [facility] Address: [address] [place] [address] Performed By: #### 3 024-7, 3016-3, 83119-3 #### [facility] CLIA [id number] [facility] [place] [address] [place] Chloride [Moles/Vol] 104 mmol/L Normal 97-105 [facility] Comment on above: Order Comment: Speci men Type: BLOOD SPECIMEN Ordering Facility: [facility] Address: [address] [place], [place] [address] Performed By: #### 3 024-7, 6-3, 83566-9 #### [facility] CLIA [id number] [address] [place] [address] [place] CO2 [Moles/Vol] 26 mmol/L Normal 22-30 [facility] Comment on above: Order Comment: Speci men Type: BLOOD SPECIMEN Ordering Facility: [facility] Address: [address] [place], [place] [address] Performed By: #### 3 024-7, 3016-3, 17077-4 #### [facility] CLIA [id number] [address] [place] [address] [place] Creatinine [Mass/Vol] 0.84 mg/dL Normal 0.58-0.96 [facility] Comment on above: Order Comment: Speci men Type: BLOOD SPECIMEN Ordering Facility: [facility] Address: [address] [place], [place] [address] Performed By: #### 3 024-7, 3016-3, 17325-1 #### [facility] CLIA [id number] [address] [place] [address] [place] Creatinine and Glomerular filtration rate.predicted panel (S/P/Bld) 83 mL/min/1.73m??? Normal >=60 [facility] Comment on above: Order Comment: Pauline giordano Type: BLOOD SPECIMEN Ordering Facility: [facility] Address: [place] [address] Result Comment: Brenda mated Glomerular Filtration Rate [...] GFR. Performed By: #### 3 024-7, 3016-3, 31822-5 #### [facility] CLIA [id number] [address] [place] [address] [place] Glucose [Mass/Vol] 104 mg/dL High 74-99 [facility] Comment on above: Order Comment: Pauline giordano Type: BLOOD SPECIMEN Ordering Facility: [facility] Address: [place] [address] Result Comment: The [place] Diabetes Association (ADA) provides guidance for cutoff [...] Standards of Medical Care in Diabetes 2016, [place] Diabetes Association. Diabetes Care. 2016.39(Suppl 1). Performed By: #### 3 024-7, 3016-3, 43188-4 #### [facility] CLIA [id number] [address] [place] [id number] [place] Potassium [Moles/Vol] 3.9 mmol/L Normal 3.7-5.1 [facility] Comment on above: Order Comment: Speci men Type: BLOOD SPECIMEN Ordering Facility: [facility] Address: [address] [place] [address] Performed By: #### 3 024-7, 6-3, 70849-7 #### [facility] CLIA [id number] [address] [place] [address] [place] Sodium [Moles/Vol] 141 mmol/L Normal 136-144 [facility] Comment on above: Order Comment: Speci men Type: BLOOD SPECIMEN Ordering Facility: [facility] Address: [place] [address] Performed By: #### 3 024-7, 3015-10, 45633-1 #### [facility] CLIA [id number] [address] [place] [address] [place] Urea nitrogen [Mass/Vol] 9 mg/dL Normal 7-21 [facility] Comment on above: Order Comment: Speci men Type: BLOOD SPECIMEN Ordering Facility: [facility] Address: [place] [address] Performed By: #### 3 024-7, 3015-10, 82861-4 #### [facility] CLIA [id number] [address] [place] [address] [place] CNOVon 05-06-2023 CNOV Office Visit (ENDOCF ) -- DEJAH DKYES ([id number]) 1970 F Date Time Provider Department 05/06/23 8:00 AM ELLY GALICIA ENDOCSylwia During your visit today, we recorded the [...] - Biotin- none - Amiodarone- none - Mentor- none - Head/neck radiation- none I have [...] file t (more content not included)... Normal [facility] DIRECT RENIN PLASMAon 2022 DIRECT RENIN 11.8 pg/mL Normal 3.6-81.6 [facility] Comment on above: Order Comment: Pauline giordano Type: BLOOD SPECIMEN Ordering Facility: [facility] Address: [address] [place] [address] Result Comment: A ra harika of aldosterone [...] pg/mL Performed By: #### 3 024-7, 3016-3, 99453-7 #### [facility] CLIA [id number] [facility] [place] [address] [place] PATIENT UPRIGHT OR SUPINE Upright Normal [facility] Comment on above: Order Comment: Pauline giordano Type: BLOOD SPECIMEN Ordering Facility: [facility] Address: [address] [place] [address] Performed By: #### 3 024-7, 3016-3, 42153-1 #### [facility] CLIA [id number] [facility] [place] [address] [place] T4 Free SerPl-mCncon 023 Free T4 [Mass/Vol] 1.3 ng/dL Normal 0.9-1.7 [facility] Comment on above: Order Comment: Pauline giordano Type: BLOOD SPECIMEN Ordering Facility: [facility] Address: [address] [place] [address] Performed By: #### 3 024-7, 3016-3, 82528-9 #### [facility] CLIA [id number] [facility] [place] [address] [place] [facility] TSH SerPl-aCncon 05-06-2023 TSH Qn 1.590 m[IU]/L Normal 0.270-4.20 0 [facility] Comment on above: Order Comment: Speci men Type: BLOOD SPECIMEN Ordering Facility: [facility] Address: [address] [place], [place] [address] Performed By: #### 3 024-7, 3016-3, 01576-1 #### [facility] CLIA [id number] [address] OF [place] Patient Eval Forms Officeon 04-09-2023 Patient Eval Forms Office [id number]#1.00CD:127 Normal [facility] Consent for Treatmenton Consent for Treatment [id number]#1.00CD:127 Normal [facility] Sleep Office/Clinic Noteon 0 04-05-2023 Sleep Office/Clinic [...] Juan Hodge, [place], [place] Within [address] [place] [address] [place] [address]- Additional Instructions: Problem List/Past Medical History Ongoing [...] Alcohol - (more content not included)... Normal [facility] Comment on above: Result Comment: Elec tronically Signed By: Donald ARCOS, Juan Hodge\.br\Date and Time Signed: 04/05/23 10:43 EDT Activated partial thrombopla stin time (aPTT) in platelet poor plasma by coagulation aOrdered By: Regino Metcalf on 03-10-2023 aPTT Coag (PPP) [Time] 28.6 s 25.1-36.5 [facility] Alanine aminotransferase [En zymatic activity/volume] in Serum or PlasmaOrdered By: Regino Metcalf on 03-10-2023 ALT [Catalytic activity/Vol] 44 U/L 7-52 [facility] Albumin [Mass/volume] in Ser um or Plasma by Bromocresol green (BCG) dye binding methoOrdered By: Regino Metcalf on 03-10-2023 Albumin BCG dye [Mass/Vol] 4.1 g/dL 3.5-5.7 [facility] Alkaline phosphatase [Enzyma tic activity/volume] in Serum or PlasmaOrdered By: Regino Metcalf on 03-10-2023 ALP [Catalytic activity/Vol] 67 U/L 34-104 [facility] Aspartate aminotransferase [ Enzymatic activity/volume] in Serum or PlasmaOrdered By: Regino Metcalf on 03-10-2023 AST [Catalytic activity/Vol] 41 U/L 13-39 [facility] Basophils Auto (Bld) [#/Vol] Ordered By: Regino Metcalf on 03-10-2023 Basophils (Bld) [#/Vol] 0.1 10*3/uL 0.0-0.2 [facility] Basophils/100 WBC Auto (Bld) Ordered By: Regino Metcalf on 03-10-2023 Basophils/100 WBC (Bld) 1.5 % . [facility] Bilirubin Test strip Ql (U)O rdered By: Regino Metcalf on 03-10-2023 Bilirubin Ql (U) Negative Negative [facility] Bilirubin.direct [Mass/volum e] in Serum or PlasmaOrdered By: Regino Metcalf on 03-10-2023 Bilirubin.direct [Mass/Vol] 0.10 mg/dL 0.03-0.18 [facility] Bilirubin.total [Mass/volume ] in Serum or PlasmaOrdered By: Regino Metcalf on 03-10-2023 Bilirubin [Mass/Vol] 0.5 mg/dL 0.3-1.[address] [facility] Calcium [Mass/volume] in Ser um or PlasmaOrdered By: Regino Metcalf on 03-10-2023 Calcium [Mass/Vol] 9.0 mg/dL 8.6-10.3 [facility] Carbon dioxide, total [Moles /volume] in Serum or PlasmaOrdered By: Regino Metcalf on 03-10-2023 CO2 [Moles/Vol] 26.6 mmol/L 21.0-31.[address] [facility] Chloride [Moles/volume] in S nusrat or PlasmaOrdered By: Regino Metcalf on 03-10-2023 Chloride [Moles/Vol] 104 mmol/L 98-[address] [facility] Color Auto (U)Ordered By: Norris red Tea on 03-10-2023 Color (U) Yellow Yellow [facility] Creatine kinase [Enzymatic a ctivity/volume] in Serum or PlasmaOrdered By: Regino Metcalf on 03-10-2023 CK [Catalytic activity/Vol] 119 U/L 30-223 [facility] Creatinine [Mass/volume] in Serum or PlasmaOrdered By: Regino Metcalf on 03-10-2023 Creatinine [Mass/Vol] 0.86 mg/dL 0.60-1.20 [facility] Eosinophils Auto (Bld) [#/Vo l]Ordered By: Regino Metcalf on 03-10-2023 Eosinophils (Bld) [#/Vol] 0.1 10*3/uL 0.0-0.45 [facility] Eosinophils/100 WBC Auto (Bl d)Ordered By: Regino Metcalf on 03-10-2023 Eosinophils/100 WBC (Bld) 1.5 % . [facility] Erythrocyte distribution wid th Auto (RBC) [Ratio]Ordered By: Regino Metcalf on 03-10-2023 Erythrocyte distribution width (RBC) [Ratio] 13.3 % 11.9-15.3 [facility] Globulin Calc (S) [Mass/Vol] Ordered By: Regino Metcalf on 03-10-2023 Globulin (S) [Mass/Vol] 3.0 g/dL [facility] Glucose [Mass/volume] in Ser um or PlasmaOrdered By: Regino Metcalf on 03-10-2023 Glucose [Mass/Vol] 95 mg/dL 70-100 [facility] Comment on above: ADA recommended refe rence rangeRandom Glucose Reference Range is dependent on time and content of last meal. Glucose of more than 200 mg/dL in a nonstressed, ambulatory subject supports the diagnosis of Diabetes Mellitus. Hematocrit Auto (Bld) [Volum e fraction]Ordered By: Regino Metcalf on 03-10-2023 Hematocrit (Bld) [Volume fraction] 43.2 % 34.0-46.4 [facility] Hemoglobin [Mass/volume] in BloodOrdered By: Regino Metcalf on 03-10-2023 Hemoglobin (Bld) [Mass/Vol] 14.6 g/dL 11.8-15.4 [facility] Ketones Auto test strip (U) [Mass/Vol]Ordered By: Regino Metcalf on 03-10-2023 Ketones (U) [Mass/Vol] Negative Negative [facility] - CoagulationOrde red By: Regino Metcalf on 03-10-2023 PT Coag (PPP) [Time] 11.3 s 9.0-12.[address] [facility] Leukocytes [#/volume] correc toya for nucleated erythrocytes in Blood by Automated counOrdered By: Regino Metcalf on 03-10-2023 WBC corrected for nucl RBC Auto (Bld) [#/Vol] 8.9 10*3/uL 3.8-11.6 [facility] Lymphocytes Auto (Bld) [#/Vo l]Ordered By: Regino Metcalf on 03-10-2023 Lymphocytes (Bld) [#/Vol] 3.8 10*3/uL 1.00-4.8 [facility] Lymphocytes/100 WBC Auto (Bl d)Ordered By: Regino Metcalf on 03-10-2023 Lymphocytes/100 WBC (Bld) 42.3 % . [facility] MCH Auto (RBC) [Entitic mass ]Ordered By: Regino Metcalf on 03-10-2023 MCH (RBC) [Entitic mass] 30.5 pg 24.7-34.3 [facility] MCHC Auto (RBC) [Mass/Vol]Or dered By: Regino Metcalf on 03-10-2023 MCHC (RBC) [Mass/Vol] 33.8 g/dL 32.0-35.0 [facility] MCV Auto (RBC) [Entitic vol] Ordered By: Regino Metcalf on 03-10-2023 MCV (RBC) [Entitic vol] 90.2 fL 80-100 [facility] Magnesium [Mass/volume] in S nusrat or PlasmaOrdered By: Regino Metcalf on 03-10-2023 Magnesium [Mass/Vol] 2.1 mg/dL 1.9-2.[address] [facility] Monocyte distribution width [Entitic volume] in Blood by AutomatedOrdered By: Regino Metcalf on 03-10-2023 Monocyte distribution width Auto (Bld) [Entitic vol] 19.08 % 0.00-20.00 [facility] Monocytes Auto (Bld) [#/Vol] Ordered By: Regino Metcalf on 03-10-2023 Monocytes (Bld) [#/Vol] 0.8 10*3/uL 0.0-0.8 [facility] Monocytes/100 WBC Auto (Bld) Ordered By: Regino Metcalf on 03-10-2023 Monocytes/100 WBC (Bld) 8.9 % . [facility] Natriuretic peptide B [Mass/ Vol]Ordered By: Regino Metcalf on 03-10-2023 Natriuretic peptide B (Bld) [Mass/Vol] 28.0 pg/mL 5-100 [facility] Neutrophils Auto (Bld) [#/Vo l]Ordered By: Regino Metcalf on 03-10-2023 Neutrophils (Bld) [#/Vol] 4.1 10*3/uL 1.8-7.7 [facility] Neutrophils/100 WBC Auto (Bl d)Ordered By: Regino Metcalf on 03-10-2023 Neutrophils/100 WBC (Bld) 45.8 % . [facility] Nitrite Test strip Ql (U)Ord ered By: Regino Metcalf on 03-10-2023 Nitrite Ql (U) Negative Negative [facility] No Panel InformationOrdered By: Regino Metcalf on 03-10-2023 D-Dimer Quantitative (PE/DVT) < 200 ng/mL 0-243 [facility] Comment on above: The reference range [...] conditions. Estimated GFR (CKD-EPI) > 60.0 mL/Min [facility] Creatinine Clearance (Chem 95.11 [facility] Nucleated erythrocytes [Pres ence] in Blood by Automated countOrdered By: Regino Metcalf on 03-10-2023 Nucleated RBC Auto Ql (Bld) 0.1 /100{WBC} 0-0.5 [facility] Platelet mean volume Auto (B ld) [Entitic vol]Ordered By: Regino Metcalf on 03-10-2023 Platelet mean volume (Bld) [Entitic vol] 9.2 fL 6.3-10.7 [facility] Platelet poor plasma interna tional normalized ratio (INR) by coagulation assay (relatOrdered By: Regino Metcalf on 03-10-2023 INR Coag (PPP) [Relative time] 1.0 {INR} [facility] Comment on above: INR Therapeutic Rang [...] 03-10-2023 Platelets (Bld) [#/Vol] 187 10*3/uL 150-450 [facility] Potassium [Moles/volume] in Serum or PlasmaOrdered By: Regino Metcalf on 03-10-2023 Potassium [Moles/Vol] 3.7 mmol/L 3.5-5.1 [facility] Protein Auto test strip (U) [Mass/Vol]Ordered By: Regino Metcalf on 03-10-2023 Protein (U) [Mass/Vol] Negative Negative [facility] Protein [Mass/volume] in Ser um or PlasmaOrdered By: Regino Metcalf on 03-10-2023 Protein [Mass/Vol] 7.1 g/dL 6.4-8.9 [facility] RBC Auto (Bld) [#/Vol]Ordere d By: Regino Metcalf on 03-10-2023 RBC (Bld) [#/Vol] 4.79 10*6/uL 3.60-5.00 [facility] Serum or plasma albumin/glob ulin mass ratioOrdered By: Regino Metcalf on 03-10-2023 Albumin/Globulin [Mass ratio] 1.4 {ratio} [facility] Serum or plasma anion gap de terminationOrdered By: Regino Metcalf on 03-10-2023 Anion gap [Moles/Vol] 15.1 mmol/L 6.0-15.0 [facility] Serum or plasma non-glucuron idated bilirubin measurement (mass/volume)Ordered By: Regino Metcalf on 03-10-2023 Bilirubin.indirect [Mass/Vol] 0.4 mg/dL [facility] Sodium [Moles/volume] in Ser um or PlasmaOrdered By: Regino Metcalf on 03-10-2023 Sodium [Moles/Vol] 142 mmol/L 136-145 [facility] Specific gravity Auto test s trip (U) [Rel density]Ordered By: Regino Metcalf on 03-10-2023 Specific gravity (U) [Rel density] 1.021 1.001-1.03 0 [facility] Thyrotropin [Units/volume] i n Serum or PlasmaOrdered By: Regino Metcalf on 03-10-2023 TSH Qn 2.28 m[IU]/L 0.45-5.33 [facility] Thyroxine (T4) free [Mass/vo lume] in Serum or PlasmaOrdered By: Regino Metcalf on 03-10-2023 Free T4 [Mass/Vol] 0.77 ng/dL 0.61-1.12 [facility] Troponin I.cardiac [Mass/vol ume] in Serum or Plasma by Detection limit <= 0.01 ng/Ordered By: Regino Metcalf on 03-10-2023 Troponin I.cardiac DL <= 0.01 ng/mL [Mass/Vol] 3.2 pg/mL 0.0-15.0 [facility] Urea nitrogen [Mass/volume] in Serum or PlasmaOrdered By: Regino Metcalf on 03-10-2023 Urea nitrogen [Mass/Vol] 14 mg/dL 7-25 [facility] Urine clarity by refractomet ry automatedOrdered By: Regino Metcalf on 03-10-2023 Clarity Refractometry automated (U) Clear Clear [facility] Urine glucose measurement by automated test strip (mass/volume)Ordered By: Regino Metcalf on 03-10-2023 Glucose Auto test strip (U) [Mass/Vol] Normal mg/dL Normal [facility] Urine hemoglobin detection b y automated test stripOrdered By: Regino Metcalf on 03-10-2023 Hemoglobin Auto test strip Ql (U) Negative Negative [facility] Urine leukocyte esterase det ection by automated test stripOrdered By: Regino Metcalf on 03-10-2023 Leukocyte esterase Auto test strip Ql (U) Negative Negative [facility] Urobilinogen Auto test strip (U) [Mass/Vol]Ordered By: Regino Metcalf on 03-10-2023 Urobilinogen (U) [Mass/Vol] Normal mg/dL Normal [facility] WBC Auto (Bld) [#/Vol]Ordere d By: Regino Metcalf on 03-10-2023 WBC (Bld) [#/Vol] 8.9 10*3/uL 3.8-11.6 [facility] pH Auto test strip (U)Ordere d By: Regino Metcalf on 03-10-2023 pH (U) 5.5 [pH] 5.0-9.0 [facility] CT Abdomen/Pelvis w/o Contra ston 03-22-2022 [...] by Dm Taylor on 03/22/2022 0937 Normal [facility] Comprehensive Metabolic Pane [facility] 12-19-2021 Albumin [Mass/Vol] 4.4 g/dL Normal 3.6-5.1 [facility] Comment on above: Performed By: #### C MP #### [facility] [address], [place] [id number] Albumin/Globulin [Mass ratio] 1.7 {ratio} Normal 1.0-2.5 [facility] Comment on above: Performed By: #### C MP #### [facility] [address], [place] [id number] ALP [Catalytic activity/Vol] 76 U/L Normal 35-119 [facility] Comment on above: Performed By: #### C MP #### [facility] [address], [place] [id number] ALT [Catalytic activity/Vol] 22 U/L Normal 6-33 [facility] Comment on above: Result Comment: 07/05 Female reference range changed. Performed By: #### C MP #### [facility] [address], [place] [id number] Anion gap [Moles/Vol] 16 mmol/L Normal 12-20 [facility] Comment on above: Result Comment: Effe ctive 08/10/2019 reference range changed. Performed By: #### C MP #### [facility] [address], [place] [id number] AST [Catalytic activity/Vol] 25 U/L Normal 9-34 [facility] Comment on above: Performed By: #### C MP #### [facility] [address], [place] [id number] Bilirubin [Mass/Vol] 0.50 mg/dL Normal 0.30-1.20 [facility] Comment on above: Performed By: #### C MP #### [facility] [address], [place] [id number] BUN/CREA 17 Ratio Normal 6-22 [facility] Comment on above: Performed By: #### C MP #### [facility] [address], [place] [id number] Calcium [Mass/Vol] 9.8 mg/dL Normal 8.6-10.2 [facility] Comment on above: Performed By: #### C MP #### [facility] [address], [place] [id number] Chloride [Moles/Vol] 103 mmol/L Normal 98-107 [facility] Comment on above: Performed By: #### C MP #### [facility] [address], [place] [id number] CO2 [Moles/Vol] 26 mmol/L Normal 20-31 [facility] Comment on above: Performed By: #### C MP #### [facility] [address], [place] [id number] Creatinine [Mass/Vol] 0.8 mg/dL Normal 0.6-1.4 [facility] Comment on above: Performed By: #### C MP #### [facility] [address], [place] [id number] eGFRAA 95 mL/min/1.73m2 Normal >60 [facility] Comment on above: Performed By: #### C MP #### [facility] [address], [place] [id number] eGFRNAA 79 mL/min/1.73m2 Normal >60 [facility] Comment on above: Performed By: #### C MP #### [facility] [address], [place] [id number] Globulin (S) [Mass/Vol] 2.6 g/dL Normal 1.9-3.[address] [facility] Comment on above: Performed By: #### C MP #### [facility] [address], [place] [id number] Glucose [Mass/Vol] 128 mg/dL High 65-99 [facility] Comment on above: Result Comment: For FASTING Glucose --- ADA reference ranges: Normal 65-99 mg/dl Prediabetes 100-125 Diabetes >/= 126 Performed By: #### C MP #### [facility] [address], [place] [id number] Potassium [Moles/Vol] 3.3 mmol/L Low 3.5-5.5 [facility] Specialist Comment on above: Performed By: #### C MP #### [facility] [address], [place] [id number] Protein [Mass/Vol] 7.0 g/dL Normal 6.1-8.1 [facility] Comment on above: Performed By: #### C MP #### [facility] [address], [place] [id number] Sodium [Moles/Vol] 142 mmol/L Normal 135-146 [facility] [employer] Comment on above: Performed By: #### C MP #### [facility] [address], [place] [id number] Urea nitrogen [Mass/Vol] 13 mg/dL Normal 7-[address] [facility] Specialist Comment on above: Performed By: #### C MP #### [facility] [address], [place] [id number] CHEMISTRYOrdered By: SYSTEM SYSTEM on 12-15-2021 Troponin I.cardiac [Mass/Vol] 2.90 pg/mL Low 10.10 - 27.10 pg/mL [facility] Remisol Albumin [Mass/Vol] 4.2 g/dL Normal 3.3 [...] rate/Area] mL/min/1.73 m2 Normal >=59mL/min /1.73 m2 [facility] Chem S GFR/1.73 sq M.predicted among non-blacks [...] 7.2 E9/L Normal 2.0 - 7.5 E9/L [facility] HemeAutoSS HEMATOLOGYOrdered By: Leah Dasilva on 12-15-2021 Erythrocyte distribution width (RBC) [Ratio] 13.3 % Normal 10.9 - 14.2 % [facility] HemeAutoSS Hematocrit (Bld) [Volume fraction] 42.2 % Normal 34.0 - 46.0 % [facility] HemeAutoSS Hemoglobin (Bld) [Mass/Vol] 15.0 g/dL Normal 12.0 - 16.0 gm/dL [facility] HemeAutoSS MCH (RBC) [Entitic mass] 31.4 pg Normal 27.0 - 34.0 pg [facility] HemeAutoSS MCHC (RBC) [Mass/Vol] 35.6 g/dL Normal 31.4 - 36.0 gm/dL [facility] HemeAutoSS MCV (RBC) [Entitic vol] 88.4 fL Normal 80.0 - 100.0 fL [facility] HemeAutoSS Platelet mean volume (Bld) [Entitic vol] 8.9 fL Normal 6.4 - 10.8 fL [facility] HemeAutoSS Platelets (Bld) [#/Vol] 245.0 E9/L Normal 150. 0 - 500.0 E9/L [facility] HemeAutoSS RBC (Bld) [#/Vol] 4.8 E12/L Normal 4.3 - 5.9 E12/L [facility] HemeAutoSS WBC corrected for nucl RBC Auto (Bld) [#/Vol] 10.4 E9/L Normal 4.0 - 11.0 E9/L [facility] HemeAutoSS URINALYSISOrdered By: Raquel Perez on 12-15-2021 [...] PM) Normal Negative [facility] UA Auto SS Mentor.plasma/Mentor. RBC (Bld) [Mass ratio] 0-3 /HPF Normal 0-3/HPF [facility] UA Auto SS Nitrite Ql (U) Negative (12/15/21 1:50 PM) Normal Negative [facility] UA Auto SS pH (U) 6.0 *NA* (12/15/21 1:50 PM) Invalid Interpretation Code 5.0 - 9.0 [facility] UA Auto SS Protein (U) [Mass/Vol] Negative (12/15/21 1:50 PM) Normal Negative [facility] UA Auto SS Specific gravity (U) [Rel density] 1.020 *NA* (12/15/21 1:50 PM) Invalid Interpretation Code 1.005 - 1.030 [facility] UA Auto SS UA Spec Desc Clean Catch (12/15/21 1:50 PM) Normal [facility] UA Auto SS Urobilinogen Qn (U) 0.3568936 {Tana'U}/dL Normal 0.0 - 1.0 EU/dL [facility] UA Auto SS WBC Auto Ql (U) Negative (12/15/21 1:50 PM) Normal Negative [facility] UA Auto SS WBC LM.HPF (Urine sed) [#/Area] 0-5 /HPF Normal 0-5/HPF [facility] UA Auto SS XR C-SPINE MIN 4 VIEWSon XR C-SPINE MIN 4 VIEWS Patient: Anabel DYKES Exam Date: 09/11/2019 : 1970 Gender:F Ordering : DR MATTHEW RIVER M.D. Admission #: [id number] Family : Order #: [id number] CLICK HERE TO VIEW EXAM RADIOLOGY REPORT [...] loss of normal cervical lordosis Dictated by: lIana Medeiros M.D. on 09/11/2019 at 11:20 Approved by: Ilana Medeiros M.D. on 09/11/2019 at 11:22 Normal [facility] Vital Signs Date Time Vital Sign Value Performing Clinician Faci lity 05-04-2024 13:52-0400 Body mass index (BMI) [Ratio] 43.1 kg/m2 PA-C Lenora Tom Work Phone: [facility] 05-04-2024 10:54-0400 Body height 161.29 cm PA-C Lenora Tom Work Phone: [facility] 05-04-2024 10:54-0400 Body weight 112.17 kg PA-C Lenora Tom Work Phone: [facility] 04-30-2024 14:49-0400 Body mass index (BMI) [Ratio] 43.1 kg/m2 PA-C Lenora Tom Work Phone: [facility] 04-30-2024 14:41-0400 Body height 161.29 cm PA-C Lenora Tom Work Phone: [facility] 04-30-2024 14:41-0400 Body weight 111.13 kg PA-C Lenora Tom Work Phone: [facility] 04-24-2024 09:40-0400 Body height 161.29 cm PA-C Lenora Tom Work Phone: [facility] 04-24-2024 09:40-0400 Body mass index (BMI) [Ratio] 43.8 kg/m2 PA-C Lenora Tom Work Phone: [facility] 04-24-2024 09:40-0400 Body weight 114.05 kg PA-C Lenora Tom Work Phone: [facility] 04-24-2024 09:40-0400 Diastolic blood pressure 65 mm[Hg] PA-C Lenora Tom Work Phone: [facility] 04-24-2024 09:40-0400 Heart rate 72 /min PA-C Lenora Tom Work Phone: [facility] 04-24-2024 09:40-0400 Respiratory rate 18 /min PA-C Lenora Tom Work Phone: [facility] 04-24-2024 09:40-0400 SaO2% (BldA) [Mass fraction] 100 % PA-C Lenora Tom Work Phone: [facility] 04-24-2024 09:40-0400 Systolic blood pressure 128 mm[Hg] PA-C Lenora Tom Work Phone: [facility] 03-18-2024 08:17-0400 Diastolic blood pressure 58 mm[Hg] Tamiko Robert [facility] 03-18-2024 08:17-0400 Heart rate 64 /min Tamiko Robert [facility] 03-18-2024 08:17-0400 Mean blood pressure 82 mm[Hg] Tamiko Robert [facility] 03-18-2024 08:17-0400 Systolic blood pressure 130 mm[Hg] Tamiko Robert [facility] 03-17-2024 09:01-0400 Body height 161.29 cm PA-C Lenora Tom Work Phone: [facility] 03-17-2024 09:01-0400 Body mass index (BMI) [Ratio] 43.1 kg/m2 PA-C Lenora Tom Work Phone: [facility] 03-17-2024 09:01-0400 Body weight 112.12 kg PA-C Lenora Tom Work Phone: [facility] 03-17-2024 09:01-0400 Diastolic blood pressure 73 mm[Hg] PA-C Lenora Tom Work Phone: [facility] 03-17-2024 09:01-0400 Heart rate 60 /min PA-C Lenora Tom Work Phone: [facility] 03-17-2024 09:01-0400 Respiratory rate 18 /min PA-C Lenora Tom Work Phone: [facility] 03-17-2024 09:01-0400 SaO2% (BldA) [Mass fraction] 99 % PA-C Lenora Tom Work Phone: [facility] 03-17-2024 09:01-0400 Systolic blood pressure 133 mm[Hg] PA-C Lenora Tom Work Phone: [facility] 03-03-2024 15:00-0400 Heart rate 62 /min Hu Davis [facility] 03-03-2024 15:00-0400 SaO2% (BldA) [Mass fraction] 100 % Hu Davis [facility] 03-03-2024 15:00-0400 Diastolic blood pressure 76 mm[Hg] Hu Davis [facility] 03-03-2024 15:00-0400 Mean blood pressure 97 mm[Hg] Hu Davis [facility] 03-03-2024 15:00-0400 Systolic blood pressure 141 mm[Hg] Hu Davis [facility] 03-03-2024 14:59-0400 Respiratory rate 16 /min Hu Davis [facility] 03-03-2024 14:52-0400 Diastolic blood pressure 92 mm[Hg] Hu Davis [facility] 03-03-2024 14:52-0400 Heart rate 60 /min Hu Davis [facility] 03-03-2024 14:52-0400 SaO2% (BldA) [Mass fraction] 100 % Lui Ryan [facility] 03-03-2024 14:52-0400 Systolic blood pressure 153 mm[Hg] Lui Ryan [facility] 03-03-2024 13:53-0400 Heart rate 66 /min Hu Davis [facility] 03-03-2024 13:53-0400 SaO2% (BldA) [Mass fraction] 99 % Lui Ryan [facility] 03-03-2024 13:53-0400 Respiratory rate 14 /min Lui Ryan [facility] 03-03-2024 13:53-0400 Diastolic blood pressure 84 mm[Hg] Hu Ryan [facility] 03-03-2024 13:53-0400 Mean blood pressure 108 mm[Hg] Lui Ryan [facility] 03-03-2024 13:53-0400 Systolic blood pressure 158 mm[Hg] Hu Ryan [facility] 03-03-2024 13:53-0400 Body temperature 98.24 [degF] Hu Davis [facility] 01-29-2024 08:14-0400 Diastolic blood pressure 73 mm[Hg] Tamiko Robert [facility] 01-29-2024 08:14-0400 Heart rate 66 /min Tamiko Robert [facility] 01-29-2024 08:14-0400 Mean blood pressure 91 mm[Hg] Tamiko Robert [facility] 01-29-2024 08:14-0400 Respiratory rate 14 /min Tamiko Robert [facility] 01-29-2024 08:14-0400 Systolic blood pressure 128 mm[Hg] Tamiko Robert [facility] 12-24-2023 13:08-0400 Body height 161.29 cm PA-C Lenora Tom Work Phone: [facility] 12-24-2023 13:08-0400 Body mass index (BMI) [Ratio] 43.8 kg/m2 PA-C Lenora Tom Work Phone: [facility] 12-24-2023 13:08-0400 Body weight 114.02 kg PA-C Lenora Tom Work Phone: [facility] 12-24-2023 13:08-0400 Diastolic blood pressure 71 mm[Hg] PA-C Lenora Tom Work Phone: [facility] 12-24-2023 13:08-0400 Heart rate 62 /min PA-C Lenora Tom Work Phone: [facility] 12-24-2023 13:08-0400 Systolic blood pressure 132 mm[Hg] PA-C Lenora Tmo Work Phone: [facility] 12-06-2023 11:40-0400 Diastolic blood pressure 70 mm[Hg] PA-C Lenora Tom Work Phone: [facility] 12-06-2023 11:40-0400 Heart rate 59 /min PA-C Lenora Tom Work Phone: [facility] 12-06-2023 11:40-0400 Respiratory rate 16 /min PA-C Lenora Tom Work Phone: [facility] 12-06-2023 11:40-0400 SaO2% (BldA) [Mass fraction] 99 % PA-C Lenora Tom Work Phone: [facility] 12-06-2023 11:40-0400 Systolic blood pressure 120 mm[Hg] PA-C Lenora Santos Work Phone: [facility] 12-06-2023 09:13-0400 Body height 162.56 cm PA-C Lenora Santos Work Phone: [facility] 12-06-2023 09:13-0400 Body weight 116.57 kg PA-Regina Santos Work Phone: [facility] 11-11-2023 09:08-0400 Body height 162.6 cm Alfredo Yancey i, MD Work Phone: [facility] 11-11-2023 09:08-0400 Body weight 116 kg Alfredo Yancey i, MD Work Phone: [facility] 11-11-2023 09:08-0400 Diastolic blood pressure 81 mm[Hg] Alfredo Cruz MD Work Phone: [facility] 11-11-2023 09:08-0400 Heart rate 75 /min Alfredo Yancey i, MD Work Phone: [facility] 11-11-2023 09:08-0400 SaO2% (BldA) [Mass fraction] 100 % Alfredo Cruz MD Work Phone: [facility] 11-11-2023 09:08-0400 Systolic blood pressure 138 mm[Hg] Alfredo Cruz MD Work Phone: [facility] 10-30-2023 11:30-0400 Heart rate 60 /min Hu Davis [facility] 10-30-2023 11:30-0400 SaO2% (BldA) [Mass fraction] 100 % Hu Davis [facility] 10-30-2023 11:30-0400 Diastolic blood pressure 83 mm[Hg] Hu Davis [facility] 10-30-2023 11:30-0400 Mean blood pressure 100 mm[Hg] [facility] [facility] 10-30-2023 11:30-0400 Systolic blood pressure 134 mm[Hg] Hu Davis [facility] 10-30-2023 11:20-0400 Diastolic blood pressure 81 mm[Hg] Hu Davis [facility] 10-30-2023 11:20-0400 Heart rate 65 /min Hu Davis [facility] 10-30-2023 11:20-0400 SaO2% (BldA) [Mass fraction] 100 % Hu Davis [facility] 10-30-2023 11:20-0400 Systolic blood pressure 164 mm[Hg] Hu Davis [facility] 10-30-2023 10:21-0400 Heart rate 66 /min Hu Davis [facility] 10-30-2023 10:21-0400 SaO2% (BldA) [Mass fraction] 99 % Hu Davis [facility] 10-30-2023 10:21-0400 Body temperature 97.88 [degF] Hu Davis [facility] 10-30-2023 10:20-0400 Diastolic blood pressure 81 mm[Hg] Lui Ryan [facility] 10-30-2023 10:20-0400 Mean blood pressure 98 mm[Hg] Lui Ryan [facility] 10-30-2023 10:20-0400 Systolic blood pressure 133 mm[Hg] Hu Davis [facility] 10-30-2023 10:18-0400 Respiratory rate 14 /min Lui Ryan [facility] 10-18-2023 13:58-0400 Body height 162.56 cm PA- Lenora Santos Work Phone: [facility] 10-18-2023 13:58-0400 Body mass index (BMI) [Ratio] 45.8 kg/m2 HIJamil Lenora Santos Work Phone: [facility] 10-18-2023 13:58-0400 Body weight 121.1 kg HIJamil Lenora Santos Work Phone: [facility] 10-17-2023 08:12-0400 Diastolic blood pressure 75 mm[Hg] Hu Davis [facility] 10-17-2023 08:12-0400 Heart rate 75 /min Hu Davis [facility] 10-17-2023 08:12-0400 Mean blood pressure 94 mm[Hg] Lui Ryan [facility] 10-17-2023 08:12-0400 Respiratory rate 14 /min Hu Davis [facility] 10-17-2023 08:12-0400 Systolic blood pressure 131 mm[Hg] Hu Davis [facility] 09-28-2023 14:56-0500 Body temperature 98.6 [degF] [facility] 09-28-2023 14:56-0500 Diastolic blood pressure 85 mm[Hg] [facility] 09-28-2023 14:56-0500 Heart rate 107 /min [facility] 09-28-2023 14:56-0500 Respiratory rate 18 /min [facility] 09-28-2023 14:56-0500 SaO2% (BldA) [Mass fraction] 100 % [facility] 09-28-2023 14:56-0500 Systolic blood pressure 138 mm[Hg] [facility] 09-24-2023 13:26-0500 Body height 162.6 cm Alfredo Yancey i, MD Work Phone: [facility] 09-24-2023 13:26-0500 Body weight 115 kg Alfredo Yancey i, MD Work Phone: [facility] 09-24-2023 13:26-0500 Diastolic blood pressure 84 mm[Hg] Alfredo Cruz MD Work Phone: [facility] 09-24-2023 13:26-0500 Heart rate 84 /min Alfredo Yancey i, MD Work Phone: [facility] 09-24-2023 13:26-0500 SaO2% (BldA) [Mass fraction] 99 % Alfredo Cruz MD Work Phone: [facility] 09-24-2023 13:26-0500 Systolic blood pressure 145 mm[Hg] Alfredo Cruz MD Work Phone: [facility] 09-19-2023 10:33-0500 Body height 162.56 cm PA-C Lenora Santos Work Phone: [facility] 09-19-2023 10:07-0500 Body mass index (BMI) [Ratio] 45.8 kg/m2 PA-Regina Santos Work Phone: [facility] 09-19-2023 10:07-0500 Body weight 121.1 kg PA-C Lenora Santos Work Phone: [facility] 09-12-2023 13:27-0500 Blood Pressure Location Forest Gonzalez [facility] 09-12-2023 13:27-0500 Diastolic blood pressure 78 mm[Hg] Forest Gonzalez [facility] 09-12-2023 13:27-0500 Heart rate 77 /min Forest Gonzalez [facility] 09-12-2023 13:27-0500 SaO2% (BldA) [Mass fraction] 99 % Forest Gonzalez [facility] 09-12-2023 13:27-0500 Systolic blood pressure 130 mm[Hg] Forest Gonzalez [facility] 08-12-2023 17:05-0500 Body height 162.56 cm PA-C Lenora Tom Work Phone: [facility] 08-12-2023 17:05-0500 Body temperature 98.2 [degF] PA-C Lenora Tom Work Phone: [facility] 08-12-2023 17:05-0500 Body weight 125.19 kg PA-C Lenora Tom Work Phone: [facility] 08-12-2023 17:05-0500 Diastolic blood pressure 94 mm[Hg] PA-C Lenora Tom Work Phone: [facility] 08-12-2023 17:05-0500 Heart rate 70 /min PA-C Lenora Tom Work Phone: [facility] 08-12-2023 17:05-0500 Respiratory rate 21 /min PA-C Lenora Tom Work Phone: [facility] 08-12-2023 17:05-0500 SaO2% (BldA) [Mass fraction] 100 % PA-C Lenora Tom Work Phone: [facility] 08-12-2023 17:05-0500 Systolic blood pressure 184 mm[Hg] PA-C Lenora Tom Work Phone: [facility] 08-02-2023 13:45-0500 Diastolic blood pressure 74 mm[Hg] Forest Gonzalez [facility] 08-02-2023 13:45-0500 Mean blood pressure 85 mm[Hg] Forest Gonzalez [facility] 08-02-2023 13:45-0500 Systolic blood pressure 108 mm[Hg] Forest Gonzalez [facility] 08-02-2023 13:36-0500 Blood Pressure Location Forest Gonzalez [facility] 08-02-2023 13:36-0500 Diastolic blood pressure 101 mm[Hg] Forest Gnozalez [facility] 08-02-2023 13:36-0500 Heart rate 76 /min Forest Gonzalez [facility] 08-02-2023 13:36-0500 SaO2% (BldA) [Mass fraction] 100 % Forest Gonzalez [facility] 08-02-2023 13:36-0500 Systolic blood pressure 170 mm[Hg] Forest Gonzalez [facility] 06-24-2023 14:30-0500 Body weight 119.3 kg Elly Galicia MD Work Phone: [facility] 06-24-2023 14:30-0500 Diastolic blood pressure 78 mm[Hg] Elly Galicia MD Work Phone: [facility] 06-24-2023 14:30-0500 Heart rate 78 /min Elly Galicia MD Work Phone: [facility] 06-24-2023 14:30-0500 SaO2% (BldA) [Mass fraction] 100 % Elly Galicia MD Work Phone: [facility] 06-24-2023 14:30-0500 Systolic blood pressure 143 mm[Hg] Elly Galicia MD Work Phone: [facility] 05-27-2023 10:40-0400 Body height 162.56 cm Lenora Kim Other [facility] Other 05-27-2023 10:40-0400 Body mass index (BMI) [Ratio] 46.17 kg/m2 Lenora Blades Other [facility] Other 05-27-2023 10:40-0400 Body weight 122.02 kg Lenora Blades Other [facility] Other 03-10-2023 18:05-0400 Diastolic blood pressure 74 mm[Hg] PA-C Lenora Tom Work Phone: [facility] 03-10-2023 18:05-0400 Heart rate 64 /min PA-C Lenora Tom Work Phone: [facility] 03-10-2023 18:05-0400 SaO2% (BldA) [Mass fraction] 100 % PA-C Lenora Tom Work Phone: [facility] 03-10-2023 18:05-0400 Systolic blood pressure 166 mm[Hg] PA-C Lenora Tom Work Phone: [facility] 03-10-2023 16:38-0400 Respiratory rate 18 /min PA-C Lenora Tom Work Phone: [facility] 03-10-2023 14:41-0400 Body height 161.29 cm PA-C Lenora Tom Work Phone: [facility] 03-10-2023 14:41-0400 Body temperature 98.6 [degF] PA-C Lenora Tom Work Phone: [facility] 03-10-2023 14:41-0400 Body weight 120.5 kg PA-C Lenora Tom Work Phone: [facility] 12-15-2021 17:15-0400 Diastolic blood pressure 67 mm[Hg] James Richards [facility] 12-15-2021 17:15-0400 Heart rate 65 /min James Susie [facility] 12-15-2021 17:15-0400 Mean blood pressure 87 mm[Hg] James Susie [facility] 12-15-2021 17:15-0400 Respiratory rate 26 /min James Susie [facility] 12-15-2021 17:15-0400 SaO2% (BldA) [Mass fraction] 100 % James Susie [facility] 12-15-2021 17:15-0400 Systolic blood pressure 128 mm[Hg] James Susie [facility] 12-15-2021 16:00-0400 Diastolic blood pressure 68 mm[Hg] James Susie [facility] 12-15-2021 16:00-0400 Mean blood pressure 82 mm[Hg] James Susie [facility] 12-15-2021 16:00-0400 Respiratory rate 11 /min James Susie [facility] 12-15-2021 16:00-0400 Systolic blood pressure 111 mm[Hg] James Susie [facility] 12-15-2021 15:00-0400 Respiratory rate 12 /min James Susie [facility] 12-15-2021 15:00-0400 Systolic blood pressure 126 mm[Hg] James Susie [facility] 12-15-2021 12:49-0400 gluc 100 mg/dL James Susie [facility] 12-15-2021 12:49-0400 gluc James Susie [facility] 12-15-2021 12:45-0400 Body temperature 98.06 [degF] James Richards [facility] 12-15-2021 12:45-0400 Heart rate 66 /min James Richards [facility] 12-15-2021 12:45-0400 Respiratory rate 18 /min James Richards [facility] 10-05-2014 15:47-0500 Blood Pressure Location Lenora TOM [facility] 10-05-2014 15:47-0500 Blood Pressure Location RAJNIMARCI MORA [facility] 10-05-2014 15:47-0500 Body temperature 98.06 [degF] Lenora TOM [facility] 10-05-2014 15:47-0500 BP/Pulse Patient Position Lenora TOM [facility] 10-05-2014 15:47-0500 BP/Pulse Patient Position RAJNI MORA [facility] 10-05-2014 15:47-0500 Diastolic blood pressure 86 mm[Hg] Lenora TOM [facility] 10-05-2014 15:47-0500 Heart rate 72 /min Lenora TOM [facility] 10-05-2014 15:47-0500 Mean blood pressure 105 mm[Hg] Lenora TOM [facility] 10-05-2014 15:47-0500 Respiratory rate 16 /min Lenora TOM [facility] 10-05-2014 15:47-0500 SaO2% (BldA) [Mass fraction] 97 % Lenora SANTOS [facility] 10-05-2014 15:47-0500 Systolic blood pressure 142 mm[Hg] Lenora SANTOS [facility] Encounters Encounter Date Encounter Type Care Provider Facility Start: 05-04-2024 End: 05-04-2024 Patient encounter procedure PA-C Lenora Santos Work Phone: [facility] Work Phone: Start: 05-04-2024 End: 05-04-2024 ambulatory Lenora Santos Facility:[facility] Start: 05-04-2024 End: 05-04-2024 ambulatory PA-C Lenora Santos Work Phone: [facility] Work Phone: Start: 05-04-2024 End: 05-04-2024 Patient encounter procedure PA-C Lenora Santos Work Phone: [facility] Work Phone: Start: 04-30-2024 End: 04-30-2024 Patient encounter procedure PA-C Lenora Santos Work Phone: [facility] Work Phone: Start: 04-30-2024 End: 04-30-2024 ambulatory PA-C Lenora Santos Work Phone: [facility] Work Phone: Start: 04-30-2024 End: 04-30-2024 ambulatory PA-C Lenora Santos Work Phone: [facility] Work Phone: Start: 04-30-2024 End: 04-30-2024 Patient encounter procedure PA-C Lenora Santos Work Phone: [facility] Work Phone: Start: 04-24-2024 End: 04-24-2024 ambulatory PA-C Lenora Santos Work Phone: [facility] Work Phone: Start: 04-24-2024 End: 04-24-2024 Patient encounter procedure PA-C Lenora Santos Work Phone: [facility] Work Phone: Start: 04-16-2024 End: 04-16-2024 ambulatory LENORA SANTOS Not Available Start: 03-30-2024 Non-patient / Non-visit PA-C Lenora Santos Work Phone: [facility] Work Phone: Start: 03-28-2024 End: 03-28-2024 Patient encounter procedure PA-C Lenora Santos Work Phone: [facility] [place] Work Phone: Start: 03-28-2024 End: 03-28-2024 ambulatory PA-C Lenora Santos Work Phone: [facility] Work Phone: Start: 03-24-2024 End: 03-24-2024 ambulatory PA-C Lenora Santos Work Phone: [facility] Work Phone: Start: 03-24-2024 End: 03-24-2024 Patient encounter procedure PA-C Lenora Santos Work Phone: [facility] Work Phone: Start: 03-18-2024 End: 03-18-2024 ambulatory Tamiko Robert [facility] Start: 03-18-2024 End: 03-18-2024 Pain Management Tamiko Robert [facility] Start: 03-17-2024 End: 03-17-2024 ambulatory MEHRAN-Regina Santos Work Phone: [facility] Work Phone: Start: 03-17-2024 End: 03-17-2024 Patient encounter procedure PA-Regina Santos Work Phone: [facility] Work Phone: Start: 03-06-2024 End: 03-06-2024 Patient encounter procedure MEHRAN-Regina Santos Work Phone: [facility] [place] Work Phone: Start: 03-06-2024 End: 03-06-2024 ambulatory MEHRAN-Regina Santos Work Phone: [facility] Work Phone: Start: 03-03-2024 End: 03-03-2024 ambulatory Hu Davis Facility:[facility] Start: 03-03-2024 End: 03-03-2024 Pain Management Hu Davis [facility] Start: 01-29-2024 End: 01-29-2024 ambulatory Tamiko Robert Facility:[facility] Start: 01-29-2024 End: 01-29-2024 Pain Management Tamiko Robert [facility] Start: 12-24-2023 End: 12-24-2023 ambulatory MEHRAN-Regina Santos Work Phone: [facility] Work Phone: Start: 12-24-2023 End: 12-24-2023 Patient encounter procedure THELMA Santos Work Phone: [facility] Work Phone: Start: 12-06-2023 End: 12-06-2023 Admission to same day surgery center THELMA Santos Work Phone: [facility]CT Scan [facility] [place] Work Phone: Start: 12-06-2023 End: 12-06-2023 ambulatory THELMA Santos Work Phone: [facility] Work Phone: Start: 12-05-2023 End: 12-05-2023 ambulatory LENORA SANTOS Not Available Start: 11-11-2023 End: 11-11-2023 ambulatory ALFREDO CRUZ Facility:[facility] Start: 11-11-2023 End: 11-11-2023 Patient encounter procedure Alfredo Cruz MD Work Phone: Endocrinology Comment on above: Class 3 severe obesi ty with serious comorbidity and body mass index (BMI) of 40.0 to 44.9 in adult, unspecified obesity type (HCC) (Primary Dx) Start: 11-07-2023 End: 11-07-2023 ambulatory LENORA SANTOS Not Available Start: 10-30-2023 End: 10-30-2023 ambulatory Hu Davis Facility:[facility] Start: 10-30-2023 End: 10-30-2023 Pain Management Hu Davis [facility] Start: 10-24-2023 End: 10-24-2023 Patient encounter procedure THELMA Santos Work Phone: [facility] [address] Work Phone: Start: 10-24-2023 End: 10-24-2023 ambulatory THELMA Santos Work Phone: [facility] Work Phone: Start: 10-18-2023 End: 10-18-2023 ambulatory PA-C Lenora Santos Work Phone: [facility] Work Phone: Start: 10-18-2023 End: 10-18-2023 Patient encounter procedure PA-C Lenora Santos Work Phone: [facility] Work Phone: Start: 10-17-2023 End: 10-17-2023 ambulatory DO Hu Davis Facility:[facility] Start: 10-17-2023 End: 10-17-2023 Pain Management Hu Davis [facility] Start: 10-15-2023 End: 10-16-2023 Pre-admission assessment Lenora SANTOS [facility] Start: 10-04-2023 End: 10-04-2023 ambulatory LENORA SANTOS Not Available Start: 09-30-2023 End: 09-30-2023 ambulatory LENORA SANTOS Not Available Start: 09-28-2023 End: 09-28-2023 Emergency department patient visit Cody Young [facility] Start: 09-25-2023 End: 09-25-2023 ambulatory PA-C Lenora Santos Work Phone: [facility] Work Phone: Comment on above: [employer] Start: 09-25-2023 Non-patient / Non-visit PA-C Lenora Santos Work Phone: [facility] Work Phone: Start: 09-25-2023 End: 09-25-2023 Patient encounter procedure PA-C Lenora Santos Work Phone: [facility] Work Phone: Start: 09-24-2023 End: 09-24-2023 ambulatory NELI SLATER Facility:[facility] Start: 09-24-2023 End: 09-24-2023 Patient encounter procedure Alfredo Cruz MD Work Phone: Endocrinology Comment on above: Class 3 severe obesi ty with serious comorbidity and body mass index (BMI) of 40.0 to 44.9 in adult, unspecified obesity type (HCC) Start: 09-20-2023 End: 09-20-2023 ambulatory LENORA SANTOS Not Available Start: 09-19-2023 End: 09-19-2023 ambulatory PA-C Lneora Santos Work Phone: [facility] Work Phone: Start: 09-19-2023 End: 09-19-2023 Patient encounter procedure MEHRAN-Regina Santos Work Phone: [facility] Work Phone: Start: 09-18-2023 Refill Lenora Ramsey ers PA Work Phone: [facility] Comment on above: Primary insomnia Start: 09-12-2023 End: 09-12-2023 ambulatory XXXX NONE Facility:[facility] Start: 09-12-2023 End: 09-12-2023 Patient encounter procedure Forest Gonzalez [facility] Start: 09-09-2023 Chart abstracting Lenora combs PA Work Phone: [facility] Start: 08-30-2023 End: 08-30-2023 ambulatory Lenora SANTOS Facility:[facility] Start: 08-30-2023 End: 08-30-2023 Patient encounter procedure Lenora SANTOS [facility] Start: 08-15-2023 End: 09-17-2023 Pre-admission assessment Hu Davis [facility] Start: 08-13-2023 End: 08-13-2023 ambulatory LENORA SANTOS Not Available Start: 08-13-2023 End: 08-13-2023 ambulatory Forest Gonzalez Facility:[facility] Start: 08-13-2023 End: 08-13-2023 Patient encounter procedure Forest Gonzalez [facility] Start: 08-12-2023 End: 08-12-2023 Emergency department patient visit THELMA Santos Work Phone: [facility] Work Phone: Start: 08-12-2023 End: 08-12-2023 Emergency department patient visit James Richards Facility:[facility] Start: 08-09-2023 End: 08-09-2023 ambulatory LENORA SANTOS Not Available Start: 08-02-2023 End: 08-02-2023 ambulatory Lenora SANTOS Facility:[facility] Start: 08-02-2023 End: 08-02-2023 Patient encounter procedure Forest Gonzalez [facility] Start: 06-24-2023 End: 06-25-2023 ambulatory NELI SLATER Facility:[facility] Start: 06-24-2023 End: 06-24-2023 Patient encounter procedure Elly Galicia MD Work Phone: Endocrinology Comment on above: Acquired hypothyroid ism (Primary Dx); Class 3 severe obesity with serious comorbidity and body mass index (BMI) of 40.0 to 44.9 in adult, unspecified obesity type (HCC) Start: 06-21-2023 ambulatory Lenora SANTOS Facil ity:[facility] Start: 05-27-2023 End: 05-27-2023 ambulatory Lenora Alvarez Other [facility] Other Start: 05-27-2023 Office outpatient ne w 45 minutes Lenora Alvarez [facility] Start: 05-14-2023 End: 05-14-2023 [facility] Start: 05-06-2023 End: 05-07-2023 ambulatory [facility] Facility:[facility] Start: 04-05-2023 End: 04-05-2023 ambulatory Juan Bennett Facility:[facility] Start: 04-05-2023 End: 04-05-2023 Patient encounter procedure Juan Bennett [facility] Start: 03-10-2023 End: 03-10-2023 Emergency department patient visit THELMA Santos Work Phone: [facility] Work Phone: Start: 01-16-2023 End: 01-16-2023 Patient encounter procedure Lenora SANTOS [facility] Start: 10-10-2022 End: 10-10-2022 Patient encounter procedure Juan Bennett [facility] Start: 03-29-2022 End: 05-01-2022 Pre-admission assessment Jose L TRIPP [facility] Start: 03-28-2022 End: 03-28-2022 Patient encounter procedure RAJNI MORA [facility] Mario Alberto Start: 12-15-2021 End: 12-15-2021 Emergency department patient visit James Richards [facility] Start: 12-14-2021 End: 12-14-2021 Patient encounter procedure Lenora SANTOS [facility] Start: 09-11-2019 End: 09-12-2019 Patient encounter procedure MATTHEW RIVER Facility:[facility] Procedures Date Procedure Procedure Detail Performing Clinician Start: 03-03-2024 Epidural injection o f lumbar spine using fluoroscopic guidance Tamiko Robert Comment on above: 100% relief left, 70 % relief right Start: 12-06-2023 Needle biopsy PA-C Sheyla marvin Santos Work Phone: Start: 10-30-2023 Injection of nerve r oot of lumbar spine using fluoroscopic guidance Tamiko Robert Comment on above: right L5-S1 90% reli [...] above: right knee Start: 07-22-2017 Laminectomy Lenora SO MMERS Comment on above: L4-L5 Start: 07-25-2015 Colonoscopy Lenora LAURENT Work Phone: Start: 10-08-2014 left extracorporeal shockwave lithotripsy Lenora SANTOS Start: 10-05-2014 cystoscopy, left retrograde ureteropyelogram, and double-J stent insertion Lenora TOM Start: 04-09-2014 robotic-assisted hysterectomy with bilateral salpingectomy Lenora SANTOS Start: 12-30-2009 right foot surgery 3 De bormarlon TOM Comment on above: x3 ankle Start: 12-30-2009 right foot surgery 4 Am isabel [employer] Comment on above: x3 ankle Start: 12-30-2009 right foot surgery 5 Am isabel [employer] Comment on above: x3 ankle Appendectomy Lenora SANTOS Comment on above: right ovary removed Arthroscopy of shoulder Sheyla SANTOS Bilateral tubal ligation Corinne kelsey TOM Cholecystectomy Lenora FORTE Laboratory test resu lt abnormal Abnormal laboratory test THELMA Santos Work Phone: Repair of ligament Lenora HOFFMAN Comment on above: right foot - mediall y Plan of Treatment Date Care Activity Detail Author Start: 09-24-2026 Diabetes Screening Diabetes Screenin g [facility] Start: 05-06-2026 Diabetes Screening Diabetes Screenin g [facility] Start: 07-25-2025 Screening for malign ant neoplasm of colon [facility] Start: 05-04-2024 [facility] Start: 12-24-2023 Patient referral [facility] Work Phone: Start: 12-06-2023 [facility] Start: 12-06-2023 CT guided biopsy [facility] Start: 12-06-[address] guided biopsy [facility] Start: 09-25-2023 [facility] Start: 09-25-2023 Actin smooth muscle IgG Ab [Units/volume] in Serum [facility] Start: 09-25-2023 Cefuroxime free [Mass/volume] in Serum or Plasma [facility] Start: 09-25-2023 Ceruloplasmin [Mass/volume] in Serum or Plasma [facility] Start: 09-25-2023 Hepatitis B core ant ibody measurement [facility] Start: 09-25-2023 Hepatitis B virus marshall rface Ab [Presence] in Serum [facility] Start: 09-25-2023 [facility] Start: 09-25-2023 Ultrasonography of liver US liver [facility] Start: 09-25-2023 US Liver [facility] Start: 09-24-2023 End: 12-24-2023 Comprehensive metabolic 2000 panel - Serum or Plasma [facility] Work Phone: Comment on above: Expected: 09/24/2023 , Expires: 12/24/2023 Start: 09-09-2023 End: 09-09-2023 Patient encounter procedure 09/09/2023 8:30 AM EST Office Visit BRIGIDA ALMARAZ [address] [place] [id number] Lenora Santos PA [address] [place] [address] BRIGIDA WILSON Start: 08-05-2023 Behavioral Health Screening Behavioral Health Screening [facility] Start: 08-05-2023 Depression Assessment Depression Ass essment [facility] Start: 06-24-2023 End: 09-23-2023 Thyrotropin [Units/volume] in Serum or Plasma [facility] Work Phone: Comment on above: Expected: 06/24/2023 , Expires: 09/23/2023 Start: 06-24-2023 End: 09-23-2023 Thyroxine (T4) free [Mass/volume] in Serum or Plasma [facility] Work Phone: Comment on above: Expected: 06/24/2023 , Expires: 09/23/2023 Start: 04-05-2023 Covid-19 Vaccine () Covid-19 Vaccine () [facility] Start: 12-14-2022 Screening for malign ant neoplasm of breast [facility] Start: 08-05-2022 Depression Assessment Depression Ass essment [facility] Start: 05-01-2022 Urine microalbumin profile DTaP,Tdap,Td Vaccine (2 - Td or Tdap) [facility] Start: 2019 Shingrix Vaccine (1 of 2) Joaquin grix Vaccine (1 of 2) [facility] Start: 2014 Cologuard (FIT-DNA) Cologuard (FIT-D NA) [facility] Start: 2014 Colonoscopy Colonoscopy [facility] Start: 2014 Colorectal Cancer Screening Colorectal Cancer Screening [facility] Start: [address] Colonography [facility] Start: 2014 Fecal Occult Blood Fecal Occult Bloo d [facility] Start: 2014 Lipid 1996 panel - S nusrat or Plasma Lipid Screening [facility] Start: 2014 Lipid panel Lipid Screening [facility] Start: 2014 Screening for malign ant neoplasm of colon [facility] Start: 2014 Sigmoidoscopy Sigmoidoscopy [facility] Start: 2009 Mammography Mammogram Screening [facility] Start: 1999 HPV Testing HPV Testing [facility] Start: 1999 Screening for malign ant neoplasm of cervix [facility] Start: 1990 Pap Testing Pap Testing [facility] Start: 1990 Screening for malign ant neoplasm of cervix [facility] Start: 1988 Hepatitis B Vaccine (1 of 3 - 19+ 3-dose series) Hepatitis B Vaccine (1 of 3 - 19+ 3-dose series) [facility] Start: 1987 Annual PCP Team Business Asst gideon Disease Visit Annual PCP Team Chronic Disease Visit [facility] Start: 1987 BP Controlled (<130/80) BP Controlle d (<130/80) [facility] Start: 1987 Hepatitis C Screening Hepatitis C Sc reening [facility] Start: 1987 Hepatitis C screening Hepatitis C [facility] Start: 1987 HIV Screening HIV Screening [facility] Start: 1987 HIV screening HIV Screening [facility] Start: 1969 Hepatitis B Vaccine (1 of 3 - 3-dose series) Hepatitis B Vaccine (1 of 3 - 3-dose series) [facility] Start: 1969 Screening for malign ant neoplasm of colon [facility] Actin smooth muscle IgG Ab [Units/volume] in Serum [facility] Albumin/Globulin ratio [facility] Alpha 1 antitrypsin [Mass/volume] in Serum or Plasma [facility] Alpha 1 antitrypsin [Mass/volume] in Serum or Plasma [facility] Alpha 1 antitrypsin phenotyping [Identifier] in Serum or Plasma by Immunofixation [facility] Anion gap measurement [facility] Cefuroxime free [Mass/volume] in Serum or Plasma [facility] Ceruloplasmin [Mass/volume] in Serum or Plasma [facility] CT guided biopsy [facility] Globulin [Mass/volum e] in Serum [facility] Glucose [Mass/volume ] in Serum or Plasma --2 hours post 75 g glucose PO [facility] Hepatic function panel [facility] Hepatitis B core ant ibody measurement [facility] Hepatitis B virus marshall rface Ab [Presence] in Serum [facility] Hepatitis B virus marshall rface Ag [Presence] in Serum or Plasma by Immunoassay [facility] Hepatitis C virus Ig G Ab [Presence] in Serum or Plasma by Immunoassay [facility] Microalbumin/Creatin ine [Mass Ratio] in Urine [facility] Patient Education [facility] Work Phone: Patient referral [facility] Work Phone: [facility] Immunizations Immunization Date Immunization Notes Care Provider Fa kenroy 04-30-2023 influenza, injectabl e, quadrivalent, contains preservative Lenora Santos PA Work Phone: [facility] 05-14-2022 influenza, injectabl e, quadrivalent, preservative free Lenora Santos PA Work Phone: [facility] 05-14-2022 Moderna Bivalent Booster Vaccination Lenora LAURENT Work Phone: [facility] 07-05-2021 Moderna SARS-CoV-2 Booster Vaccination Lenora Santos PA Work Phone: [facility] 06-08-2021 influenza, injectabl e, quadrivalent, contains preservative Lenora Santos PA Work Phone: [facility] 11-18-2020 COVID-19, mRNA, LNP- S, PF, 30 mcg/0.3 mL dose; Translations: [Pfizer-BioNTech COVID-19 Vaccine] Lenora SANTOS [facility] Comment on above: Reason for Medicatio n: Prophylaxis 10-21-2020 COVID-19, mRNA, LNP- S, PF, 30 mcg/0.3 mL dose; Translations: [Pfizer-BioNTech COVID-19 Vaccine] Lenora SANTOS [facility] Comment on above: Reason for Medicatio n: Prophylaxis 05-13-2020 influenza, injectabl e, quadrivalent, preservative free Lenora Santos PA Work Phone: [facility] 05-13-2020 Seasonal, quadrivale nt, recombinant, injectable influenza vaccine, preservative free Lenora Santos PA Work Phone: [facility] 04-30-2019 influenza virus vaccine, unspecified formulation Lenora SANTOS [facility] 04-30-2019 influenza, injectabl e, quadrivalent, preservative free Lenora Santos PA Work Phone: [facility] 05-20-2018 Influenza, injectabl e, Madin Carmen Canine Kidney, preservative free, quadrivalent Lenora Tom PA Work Phone: [facility] 05-05-2018 influenza, injectabl e, quadrivalent, preservative free Lenora Tom PA Work Phone: [facility] 06-07-2017 influenza, injectabl e, quadrivalent, preservative free Lenora Tom PA Work Phone: [facility] 05-29-2016 influenza, injectabl e, quadrivalent, preservative free Lenora Tom PA Work Phone: [facility] 05-26-2015 influenza, seasonal, injectable Lenora Tom PA Work Phone: [facility] 05-01-2012 tetanus toxoid, redu meng diphtheria toxoid, and acellular pertussis vaccine, adsorbed Lenora TOM [facility] Comment on above: Early/Late Reason: N ursing Judgment 07-21-2009 novel [id number], preservative-free, injectable Lenora Tom PA Work Phone: [facility] Healthcare Payers Date Payer Category Payer Unknown MARIS MCGRAW PPO [id number] 2023-Present [phone] [address] [place] [address] PPO [id number] 2023 Unknown [id number] 2023 Private Health Insurance [id number] 2023 Self-pay [id number] 2022 Private Health Insurance [id number] 2022 Private Health Insurance [id number] 1969 Unknown [id number] 2.16.840.1.095771.3.579.2.5 1969 Unknown [id number] 2.16.840.1.092441.3.579.2.7 1969 Unknown [id number] 2.16.840.1.804952.3.579.2.7 1969 Unknown [id number] 2.16.840.1.457499.3.579.2.7 1969 Unknown [id number] 2.16.840.1.210009.3.579.2.7 1969 Unknown [id number] 2.16.840.1.692062.3.579.2.7 1969 Unknown [id number] 2.16.840.1.709247.3.579.2.7 1969 Unknown [id number] 2.16.840.1.132615.3.579.2.7 1969 Unknown [id number] 2.16.840.1.385438.3.579.2.7 1969 Unknown [id number] 2.16.840.1.657474.3.579.2.7 1969 Unknown [id number] 2.16.840.1.803080.3.579.2.7 1969 Unknown [id number] 2.16.840.1.210217.3.579.2.7 1969 Unknown [id number] 2.16.840.1.250113.3.579.2.7 1969 Unknown [id number] 2.16.840.1.152914.3.579.2.7 1969 Unknown [id number] 2.16.840.1.513212.3.579.2.1 1969 Unknown [id number] 2.16.840.1.422722.3.579.2.1 259 1969 Unknown [id number] 2.16.840.1.422143.3.579.2.1 259 1969 Unknown [id number] 2.16.840.1.543074.3.579.2.1 259 1969 Unknown [id number] 2.16.840.1.872999.3.579.2.1 259 1969 Unknown [id number] 2.16.840.1.110438.3.579.2.1 259 1969 Unknown [id number] 2.16.840.1.772658.3.579.2.1 259 1969 Unknown [id number] 2.16.840.1.044998.3.579.2.1 259 1959 Unknown [id number] Unknown O [id number] Unknown [id number] 2.16.840.1.001790.3.579.2.5 31 Unknown [id number] 2.16.840.1.821796.3.579.2.5 31 Unknown [id number] 2.16.840.1.905783.3.579.2.5 31 Unknown [id number] 2.16.840.1.713646.3.579.2.5 31 Unknown [id number] 2.16.840.1.284447.3.579.2.5 31 Unknown [id number] 2.16.840.1.356327.3.579.2.5 31 Unknown [id number] 2.16.840.1.577213.3.579.2.5 31 Unknown [id number] 2.16.840.1.172673.3.579.2.5 31 Unknown [id number] 2.16.840.1.881891.3.579.2.5 31 Social History Date Type Detail Facility Start: 09-08-2019 End: 03-17-2024 Tobacco smoking status Never smoked tobacco (finding) [facility] Tobacco smoking status Never Ronda zendejas [facility] Start: 06-24-2023 End: 11-11-2023 Sex Assigned At Female Estevan [facility] Start: 1970 Sex Assigned At Female F [facility] Start: 06-24-2023 End: 11-11-2023 Alcohol intake Current drinker of alcohol (finding) [facility] Start: 06-24-2023 End: 11-11-2023 History of Social function [facility] Start: 04-12-2011 Alcohol Comment 4-5x/year [facility] Start: 1970 Sex Assigned At Not on file [facility] Start: 01-04-2023 Tobacco use and exposure [...] [OSQ] Very much [facility] (I/We) worried nathanael er (my/our) food would run out before [...] SET SCREW FDA Start: 07-22-2017 RELINE NUVASIVE MXAWELL FDA Start : 07-22-2017 RELINE NUVASIVE MAXWELL [...] 07-22-2017 EVICEL FIBRIN SEALANT 2ML FDA Start: 12-18-2017 EVICEL FIBRIN SEALANT 2ML FDA Start: 07-22-2017 [...] 07-22-2017 ALLOGRAFT FUSELO X LUMBAR FDA Start: 12-18-2017 CANCELLOUS 15CC CRUSHED FDA Start: 07-22-2017 CROSSLINK [...] Assessment Result Facility 03-18-2024 Functional Status N/A [facility] 03-06-2024 Fibrosis score Enhanced Liver Fibrosis Score 10.94 [facility] Comment on above: ELF(TM) Score Interp retation:Risk cut-offs to assess the likelihood of progressionto cirrhosis and liver-related clinical events within3.9 years following baseline ELF score (IQR: 14.0-22.4months)*: Lower risk < 9.80 Mid risk 9.80 - 11.29 Higher risk >11.29Note: The ELF(TM) Score is a unitless numerical value.*Alexy FRENCH, Alexandro FRIAS, Duong T, et al. Selonsertibfor patients with bridging fibrosis or compensatedcirrhosis due to MANRIQUZE: Results from randomized phaseIII STELLAR trials. J Hepatol. 2020 Feb;73(1):26-39.Performed at: [address] [id number] Director: Leyla Britt MD, Phone: [phone] 01-29-2024 Functional Status N/A [facility] 10-30-2023 Functional Status N/A [facility] 10-17-2023 Functional Status N/A [facility] 09-28-2023 Functional Status N/A [facility] 09-12-2023 Functional Status No [facility] 08-02-2023 Functional Status No [facility] 03-28-2022 Functional Status N/A [facility] Clinical Notes 12-15-2021 to 03-18-2024 Note Date [...] anything from our services. DIMPLE score: 40%. [facility] 08-14-2024 NoteConsultation Note Patient: DEJAH [...] Insomnia, # 30 tab(s), Refills(s) 1, Pharmacy: [facility]/pharmacy #[id number], 161, cm, 09/08/19 14:29:00 EST, Height/Length Measured, 110.5, kg, 09/08/19 14:29:00 EST, Weight Measured Estrace 0.1 mg/g Cream: See Instructions, 42.5 gm, Refill(s) 5, insert 1gm vaginally & apply pea sized amount around the urethra nightly x 3 weeks, then 3x per week thereafter, [facility]/pharmacy #[id number], 162.5, cm, 04/24/22 15:43:00 EDT, Height/Length Dosing, 105, kg, 03/28/22 9:0... Ziac 5 mg-6.25 mg oral tablet: 1 tab(s), Oral, Daily, 90 tab(s), Refill(s) 1, [facility]/pharmacy #[id number] minocycline 100 mg Cap: 100 mg, Oral, Daily, # 100 cap(s), Refills(s) 1, Pharmacy: [facility]/pharmacy #[id number] Documented Medications Documented Rezdiffra 100 [...] Problems Lumbar disc herniation / SNOMED CT 744066364 / Confirmed L4-5 fusion Allergic rhinitis, seasonal / SNOMED CT 744905330 / Confirmed H/O: HTN (hypertension) / SNOMED CT 607511967 / Confirmed Depression / SNOMED CT 158241144 / Confirmed Fatty liver / SNOMED CT 057802074 / Confirmed Acne rosacea / SNOMED CT 1799151017 / Confirmed Osteochondritis dissecans / SNOMED CT 694506112 / Confirmed Class 3 severe obesity with body mass index (BMI) of 40.0 to 44.9 in adult / SNOMED CT 6042885371 /Confirmed Non-tobacco user / SNOMED CT 308524964 / Confirmed Influenza vaccination up to date / SNOMED CT 425126402 / Confirmed Urine frequency / SNOMED CT 886985736 / Confirmed Kidney stones / SNOMED CT 039407715 / Confirmed Frequent UTI / SNOMED CT 612230918 / Confirmed Resolved: DVT / SNOMED CT 429930953 Resolved: Kidney stones / SNOMED CT 757WS286-[id number] Objective Vital Signs 03/18/2024 8:17 EDT Peripheral [...] limited range of motion Integumentary: Warm, Dry, [place]. Neurologic: Alert, Oriented. Psychiatric: Cooperative, Appropriate mood [...] are maintained. Intraosseous hemangio (more content not included)...[facility]Result Comment: Electronically Signed By: Yesica RENEE, Tamiko\.br\Date and Time Signed: 03/18/24 08:39 [id number] Evaluation note* Author Tank Xavier [facility] Authored March 17, 2024 10 :13am [...] effects. 3. Prediabetes with recent A1c of 6.9-opxmo-dlei treatment with long-term healthy lifestyle change, decreased [...] sleep hygiene and weight loss also. 7. KLHO-qopnde-lbpjuf. Sent here by GI. 8. Kriss's thyroiditis [...] Our exercise program was recommended with our gusset edger/obesity exercise group. Handout given. Our free weekly [...] and benefits of prescribed meds discussed. Initial gnqe-ky-plzz interview/evaluation. The patient was counseled in detail on the options for weight loss in an individual setting. 69 minutes was spent caring for the patient, counseling/educating patient on the options for the treatment of obesity and related healthcare issues. The program's treatment goals were reviewed with the patient. Each aspect of the program was discussed with the patient. [facility] Work Phone: 1(411) 175-865608-13-2024 Evaluation note* Author Tank Xavier [facility] Authored March 17, 2024 10 :13am [...] effects. 3. Prediabetes with recent A1c of 6.7-aocio-vadw treatment with long-term healthy lifestyle change, decreased [...] back pain-had improved with a fusion in 2016 but now she is having pain at adjoining vertebra. Currently working with pain management. Treat also with healthy exercise and weight loss. 6. Obstructive sleep apnea-requiring CPAP. Treat with good sleep hygiene and weight loss also. 7. ZXNS-sobxlx-odasfd. Sent here by GI. 8. Kriss's thyroiditis [...] Our exercise program was recommended with our gusset edger/obesity exercise group. Handout given. Our free weekly [...] and benefits of prescribed meds discussed. Initial agea-co-fdgq interview/evaluation. The patient was counseled in detail on the options for weight loss in an individual setting. 69 minutes was spent caring for the patient, counseling/educating patient on the options for the treatment of obesity and related healthcare issues. The program's treatment goals were reviewed with the patient. Each aspect of the program was discussed with the patient. Author Sofiya Becerraon [facility] Authored April 24, 2024 9:59am Highest weight: 275 lbs. she is down 23.3lbs Start weight: 247.3 lbs. she is up 4.4lbs. today she is 251.7 up 4.4lbs since last office visit on 03/17/24. Starting Date: 03/17/24. 1. Abnormal weight gain. [...] effects. 3. Prediabetes with recent A1c of 6.3-mqxas-lihq treatment with long-term healthy lifestyle change, decreased [...] sleep hygiene and weight loss also. 7. SRQP-afiovi-zabzyi. Sent here by GI. 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 9. Kidney stones-will try to avoid Topamax. Increase water intake. Stop Pepsi. Follow up with me in 6 weeks. New labs needed: Up-to-date except for going to do a 2-hour glucose tolerance test off metformin. [facility] Work Phone: 1(343) 947-884708-13-2024 Evaluation note* Author Tank Xavier [facility] Authored March 17, 2024 10 :13am [...] effects. 3. Prediabetes with recent A1c of 6.0-rbgbu-otuv treatment with long-term healthy lifestyle change, decreased [...] sleep hygiene and weight loss also. 7. ZSWN-cexvje-qfogtd. Sent here by GI. 8. Kriss's thyroiditis [...] Our exercise program was recommended with our gusset edger/obesity exercise group. Handout given. Our free weekly [...] and benefits of prescribed meds discussed. Initial ltxr-hm-bsph interview/evaluation. The patient was counseled in detail on the options for weight loss in an individual setting. 69 minutes was spent caring for the patient, counseling/educating patient on the options for the treatment of obesity and related healthcare issues. The program's treatment goals were reviewed with the patient. Each aspect of the program was discussed with the patient. Author Tank Xavier [facility] Authored April 24, 2024 11:27am Highest weight: 275 lbs. she is down 23.3lbs Start weight: 247.3 lbs. she is up 4.4lbs. today she is 251.7 up 4.4lbs since last office visit on 03/17/24. Starting Date: 03/17/24. 1. Abnormal weight gain. She has a strong family history of obesity and 2 aunts on her mom side of the family, both her maternal grandparents and her brother. 2. Obesity-not yet improved. This is her first visit back. 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 She has a new diagnosis of type 2 diabetes based on a markedly abnormal 2-hour glucose tolerance test with a 2-hour blood sugar of 242. She is going to start diabetic education. We are going to add Ozempic/GLP-1 for treatment of her diabetes and weight management. She must try to avoid added sugars highly processed starches and added fats. She should follow the plate method. She fe She has no contraindications. She was sent here by her liver specialist due to MASH S3/F3/F4 FibroScan and biopsy-proven steatosis with bridging fibrosis. She is now on the thyroid receptor agonist for this condition. Her obvious issue with starting the program was that she would drink 3 to 4 16 ounce regular Pepsi's daily. She is willing to give them up cold turkey. Before starting the program she tried to eat in a healthy fashion although [...] unfortunately be having to have ankle surgery May 21. I offered her our water aerobics recommendations [...] abdominal pain or other side effects. 3. Type 2 diabetes mellitus with a 2-hour glucose tolerance test of 242 with recent A1c of 6.4-vuawd-sutr treatment with long-term healthy lifestyle change, decreased simple sweets and refined starches, increased exercise and activity and long-term weight loss. Continue metformin. Recommend GLP-1 agonist. Needs close long-term follow-up for this condition to prevent diabetes. She [...] sleep hygiene and weight loss also. 7. JSKU-fzpawp-vmubrx. Sent here by GI. 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 9. Kidney stones-will try to avoid Topamax. Increase water intake. Stop Pepsi. Follow up with me in 6 weeks. New labs needed: Up-to-date. She will need an A1c again in 3 months after following the program. She needs at least yearly metabolic blood work. [facility] Work Phone: 1(608) 693-476707-30-2024 NoteOperative Report Diagnosis: M54.16, lumbar radiculopathy Procedure: [...] and agrees to comply to currently prescribed/recommended therapies.[facility] Comment on above:Result Comment: Electronically Signed By: Hu Davis DO\.br\Date and Time Signed: 03/03/24 14:58 [id number] Evaluation + Plan note Extracted from: Title:Bilateral [...] Date:03/18/2024 08:15:00 AM Scheduled Provider:Tamiko Robert PA-C Location[facility] Appointment Type:Pain Management - Follow Up (FT) [facility] 06-26-2024 Evaluation + Plan noteExtracted from: Title:Pain Managment [...] clinic sooner if necessary. DIMPLE score: 42%. [facility]05-21-2024 Evaluation note* Author jaspreet [facility] Authored December 24, 2023 1:52p m 53-year-old [...] Resmetirom and follow-up with insurance regarding approval [facility] Work Phone: 1(484) 367-549105-21-2024 Evaluation note* Author Kamilah Ward [facility] Authored December 24, 2023 1:52p m [...] follow-up with insurance regarding approval Author Sofiya Jacobson [facility] Authored March 17, 2024 9: 11am [...] Our exercise program was recommended with our gusset edger/obesity exercise group. Handout given. Our free weekly [...] and benefits of prescribed meds discussed. Initial zwfj-iq-mfyy interview/evaluation. The patient was counseled in detail on the options for weight loss in an individual setting. [ ] minutes was spent caring for the patient, counseling/educating patient on the options for the treatment of obesity and related healthcare issues. The program's treatment goals were reviewed with the patient. Each aspect of the program was discussed with the patient. [facility] Work Phone: 1(251) 909-733804-08-2024 NoteHNO ID: [id number] Author: ALFREDO CRUZ MD Service: ? 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 Registration to the weight loss program will also be done online. [email or web address] Alternatively, to schedule appointment, please call [phone] Order Specific Question: Have you discussed weight management with your patient? Answer: Yes Order Specific Question: Are you requesting assessment for possible Bariatric Surgery for your patient? Answer: Yes Order Specific Question: Does consulting provider have [facility] Epic access? 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 Registration to the weight loss program will also be done online. [email or web address] Alternatively, to schedule appointment, please call [phone] Order Specific Question: Have you discussed weight management with your patient? Answer: Yes Order Specific Question: Are you requesting assessment for possible Bariatric Surgery for your patient? Answer: Yes Order Specific Question: Does consulting provider have [facility] Epic access? Answer: Yes Follow up PRN Signed: Alfredo Cruz MD Endocrinology and Metabolism [facility] documented in this encounterMartin [facility]04[facility] Instructions* Patient Instructions* Alfredo Cruz MD - 11/11/2023 9:20 AM EDT Images from the original note were not included. BARIATRIC REFERRAL The first step for considering bariatric (weight loss) surgery at [facility] is to watch the online seminar on the following website. Registration to the weight loss program will also be done online. https://my.[facility]org/departments/bariatric Links: https://pages.[facility].org/yanwfarkb-hbzcbq-xvxw-program.html?_gl=1*1ly7e l6*_ga*YoMoIjG4CJYvS d4bVmR5Noq5LVb7*_ga_HWJ092SPKP*RIplHWE6LsQ0HK9iGdQpOBqhICZ6AyK8QG3rQwDxHK.. https://www.[employer].net/pp_l318/InvvOqqspFsoCcex841.asp?V=2175_Bariatric s_Full_Show_FINAL.mp4 Bariatric Service Information Session Registration: https://www.[employer].net/pp_l318/YfbczpnHylueeSrcxwhgcwecc572.asp?_ga=1.2 61627776.606793117.1 400212998&_gl=1*1il5js4*_ga*WpMzDeG5SHQtHr2qQsQ5Jdy7INb4*_ga_HWJ092SPKP*MTcwNDM3 JwO2QM4aGaUeLZhoTPB7XsI6UY0zTtTyZY.. Alternatively, to schedule appointment, please call [phone] Link: https://my.[facility].org/-/scassets/files/org/bariatric/guides/bmi-twyla- ocp1427-ugc.ashx?la=en documented in this encounterMartin [facility] Hospital03-27-2024 Evaluation + Plan note Extracted from: Title:Right [...] Date:12/19/2023 03:15:00 PM Scheduled Provider:Hu Davis DO Location:FT.Pain [facility] Appointment Type:Pain Management - Follow Up (FT) [facility]03-27-2024 Note [id number]-30[facility]2023 NoteDiagnosis: M54.16, lumbar radiculopathy Procedure: Right [...] and agrees to comply to currently prescribed/recommended therapies.[facility] Comment on above:Result Comment: Electronically Signed By: Hu Davis DO\.br\Date and Time Signed: 10/30/23 11:29 [id number] Evaluation + Plan note Extracted from: Title:chronic [...] for this as well as has a eye surgeon and is working on possibility of autoimmune [...] daily, we also encouraged follow-up with her eye surgeon to discuss possibility of any autoimmune reasons [...] with any questions or concerns that arise. [facility]03-12-2024 NotePt cancelled PT evaluation in the remind system today. Chart was prepped for this evaluation.[facility]02-24-2024 Hospital Discharge instructions Patient Education 09/28/2023 15:37:40 [...] managed at home with rest, fluids, and poec-ruk-hgfldqr medicines. Serious symptoms may be treated in [...] water are not available, use alcohol-based hand office services assistant. Make sure that all people in your [...] managed at home with rest, fluids, and pzsx-tvt-xehyuum medicines. This information is not intended to replace advice given to you by your health care provider. Make sure you discuss any questions you have with your health care provider. Document Revised: 07/12/2022 Document Reviewed: 07/12/2022 Nervogrid Patient Education 2022 [employer]. Follow Up Care 09/28/2023 14:45:50 With:TOM RENEE, RADHA Gaxiola Address: [address] [place] [address] ARIANA Valencia [address]- When:10/01/2023 [facility]02-24-2024 NoteInfectious Disease COVID-19 COVID-19, or [...] managed at home with rest, fluids, and mpzh-dkd-jtgtqtj medicines. ? Serious symptoms may be treated [...] condition. ? You should (more content not included)...[facility]02-24-2024 Evaluation + Plan noteExtracted from: Title:ED Note Author:Eric RENEE, Lara Henry ate:09/28/23 1. COVID (U07.1: COVID-19) Orders: ketorolac, 30 mg = 1 mL, Injection, IntraMuscular, Once, Stop date 09/28/23 15:36:00 EST, STAT, Start date 09/28/23 15:36:00 EST, 09/28/23 15:36:00 EST Future Appointments Appointment Date:10/17/2023 08:30:00 AM Scheduled Provider:Hu Davis DO Location:[facility] Appointment Type:Pain Management - New () [facility]02-20-2024 NoteHNO ID: [id number] Author: ALFREDO CRUZ MD Service: ? 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 You are a resident of the [facility] or [place] You are 18 years of age or [...] a valid patient HIPAA authorization. Subject to [employer] s ( Bottle ) right to terminate, rescind,revoke, or amend Card eligibility criteria and/or Card terms and conditions which may occur at Bottle s sole discretion, without notice, and for [...] a valid patient HIPAA authorization. Subject to Bottle s right to terminate, rescind, revoke, or amend Card eligibility criteria and/or Card terms and conditions which may occur at Bottle s sole discretion, without notice, and for any reason, Card expires and savings end on 08/04/2024 Video Instructions for Injecting Zepbound: https://www.youReamazeube.com/watch?v=kL8VnHV2Vsv Link to Skilled Helper Website https://www.HiPer TechnologypbOnformonics/ Savings card: https://www.[employer]/coverage-savings Medication Guide: https://www.[employer]/qtzk-ka-wimjgphp Written pen instructions: https://www.[employer]/how-to-use Tirzepatide: Patient drug information What is Zepbound? [...] under 18 years of age. Check out [employer].BeanStockd for savings coupon and more information regarding [...] fat or fatty foods documented in this encounterMartin [facility] Hospital02-20-2024 History of Present illness Narrative* Alfredo Cruz MD - 09/24/2023 1:32 PM EST Images from the original note were not included. 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 -- Discussed basic exercise recommendations, the role of exercise on weight loss and maintenance. Discussed the combination of aerobic and resistance exercise. -- Most patients benefit from a personalized exercise program. Will refer to endocrine gusset edger -- Recommend gradual increase in exercise. Goal [...] log, MyFitness Pal), activity journals / trackers (StackMob watch, Avidity NanoMedicines Bit, Actionality vivofit, Striiv). I will see her back [...] type (HCC) E66.01 Z68.41 Alfredo Cruz MD [facility] Endocrinology and Metabolism [facility] [phone] Medical Decision Making: Problems: Moderate: 1+ chronic illnesses with change Data: Unique source(s) for external note(s) reviewed: 1 Unique test result(s) reviewed: 3+ Unique test(s) ordered: 3+ Risk: Moderate: Drug management Medical Decision Making Level: 4 - Moderate documented in this encounterMartin Memorial Hospital02-14-2024 Telephone encounter Note * Telephone Encounter - MEHRAN Leggett - 09/18/2023 3:45 PM EST completed [id number] Miscellaneous Notes* Telephone Encounter - MEHRAN Leggett - 09/18/2023 3:45 PM EST completed documented in this encounterFreeman Heart [id number] NoteEchocardiology Procedure Exam Date/Time Accession # Ordering Echo Transthoracic 08/13/2023 09:46 EST [id number] Carlos ARCOS, Forest Hernandez DGorge CPT code [id number] Reason for Exam (Echo Transthoracic Complete) Abnormal ECG R94.31;Other (please specify) Report Version: 1 Study ID: [id number] [address] Adult Echocardiogram Report Name: DEJAH DYKES Jada Study Date: 08/13/2023, 9: 11 AM Patient Location: [facility] : 1970 (MM/DD/YYYY) Gender: Female Age: 53 [...] Signed by: Forest Gonzalez MD Transcribed by: [facility] Technologist: [facility]11-20-2023 Note HNO ID: [id number] Author: Elly Galicia MD Service: ? Author [...] - Biotin- none - Amiodarone- none - Mentor- none - Head/neck radiation- none Interval history: [...] (BMI) of 40.0 to 44.9 in adult ([facility]) 02/01/2023 Essential hypertension 01/04/2023 Kidney stones 02/01/2023 [...] - 30 mmol/L 26 (more content not included)...[facility] 06-24-2023 Instructions* Patient Instructions* Elly Galicia MD - 06/24/2023 3:08 PM EST - Lab recheck today, will let you know if we need to change the dose - Weight Management consultation documented in this encounterMartin Memorial Hospital11-20-2023 History of Present illness Narrative* Elly Galicia [...] - Biotin- none - Amiodarone- none - Mentor- none - Head/neck radiation- none Interval history: [...] (BMI) of 40.0 to 44.9 in adult ([facility]) 02/01/2023 Essential hypertension 01/04/2023 Kidney stones 02/01/2023 [...] high (L): Data is abnormally low [facility] 02/01/2023 Component TSH Component 02/01/2023 TSH 5.95 [...] 12/23/2023). Elly Galicia MD documented in this encounterMartin Memorial Hospital10-23-2023 Evaluation note* Encounter Date Diagnosis Assessment Notes Treatment Notes Treatment Clinical Notes May, Lumbar back pain (ICD-10 - M54.50) charming charlie Other 10-02-2023 NoteHNO ID: [id number] Author: Elly Galicia MD Service: ? Author [...] - Biotin- none - Amiodarone- none - Mentor- none - Head/neck radiation- none I have [...] or stare. No scleral (more content not included)...[facility]09-01-2023 NoteHistory of Present Illness Here [...] Donald ARCOS, Juan Hodge, PUL, [place] [address] [facility] [place] [address]- Additional Instructions: after his testing [...] 04/30/2019 Recorded diphtheria/pertussis, camelia (more content not included)...[facility]:Result Comment: Electronically Signed By: Donald ARCOS, Juan Hodge\.br\Date and Time Signed: 04/05/23 10:31 EDTOther Comment: Put under wrong [phone] Hospital Discharge instructions Follow Up Care 03/13/2023 13:01:01 With:Donald ARCOS, Juan Hodge, PUL, [place] Address: [address] [place] [address] [place] [address]- When:1 year [facility]08-24-2022 Evaluation + Plan note Diagnostic Tests Pending * UTI ([facility]) 03/28/22 [facility] 08-24-2022 Hospital Discharge instructions Patient Education 03/28/2022 10:11:51 Kidney Stones, Uekj-uo-Dxie Kidney Stones Kidney stones are rock-like masses [...] Follow these instructions at home: Medicines Take ocma-jax-bzwbyql and prescription medicines only as told by [...] 01/07/2009 Document Revised: 12/08/2019 Document Reviewed: 12/08/2019 ElseNatureBridge Patient Education 2019 [employer]. [facility] 05-13-2022 Hospital Discharge instructions Patient Education 12/15/2021 17:22:14 Paresthesia, Oswj-ny-Ycnp Paresthesia Paresthesia is a burning or prickling [...] fried or sweet foods. General instructions Take mhai-fdt-shwwmjf and prescription medicines only as told by [...] 2009 Document Revised: 08/17/2019 Document Reviewed: 07/31/2018 Nervogrid Patient Education 2020 [employer] Inc. 12/15/2021 17:22:14 Spondylolysis Spondylolysis Spondylolysis is a [...] Follow these instructions at home: Medicines Take abil-wim-kiwcvlo and prescription medicines only as told by your health care provider. Ask your health care provider if the medicine prescribed to you: ?Requires you to avoid driving or using heavy machinery. ?Can cause constipation. You may need to take these actions to prevent or treat constipation: ?Drink enough fluid to keep your urine pale yellow. ?Take hsxx-zih-axsjutb or prescription medicines. ?Eat foods that are [...] 07/22/2006 Document Revised: 11/12/2019 Document Reviewed: 02/24/2019 Nervogrid Patient Education 2020 [employer]. 12/15/2021 17:22:14 Hypokalemia Hypokalemia Hypokalemia means [...] hospital. Follow these instructions at home: Take lcbu-dda-qlccweg and prescription medicines only as told by [...] cantaloupe, kiwi, oranges, tomatoes, asparagus, and potatoes. ?Searcy juice. ?Tomato juice. ?Red meats. ?Yogurt. Keep [...] 07/22/2006 Document Revised: 03/04/2019 Document Reviewed: 03/04/2019 Nervogrid Patient Education Heyzap Follow Up Care 12/15/2021 12:44:44 With:Lneora SANTOS Address: [address] [place] [id number] Business (1) When:12/18/2021 16:02:07 [facility]Reason for visit Narrative* Chief Complaint follow up liver biop sy k75.[address] [facility] for [facility] Fatty liver Metabolic dysfunction-associated steatohepatitis (MASH) [facility] Work Phone: Chiwk complaint+Reason for visit Narrative* Chief Complaint k75.[address] [facility] Reason for Visit BMI 40.0-44.9, adult Hypertension Hypothyroidism Metabolic dysfunction-associated steatohepatitis (MASH) Pre-diabetes Sleep apnea [facility] Work Phone: chief complaint+Reason for visit Narrative* Chief Complaint k75.[address] [facility] r73.03 Reason for Visit BMI 40.0-44.9, adult Hypertension Hypothyroidism Metabolic dysfunction-associated steatohepatitis (MASH) Pre-diabetes Sleep apnea [facility] Work Phone: chief complaint+Reason for visit Narrative* Chief Complaint k75.81 [facility] r73.03 K75.81 Z58.180 Reason for Visit BMI 40.0-44.9, adult Hypertension Hypothyroidism Metabolic dysfunction-associated steatohepatitis (MASH) Pre-diabetes Sleep apnea BMI 40.0-44.9, adult Hypertension Metabolic dysfunction-associated steatohepatitis (MASH) Sleep apnea Type 2 diabetes mellitus [facility] Work Phone: chief complaint+Reason for visit Narrative* Chief Complaint k75.81 [facility] r73. K75.[address] WM f/u Group Home / Current Medication use / Med Check Reason for Visit BMI 40.0-44.9, adult Hypertension Hypothyroidism Metabolic dysfunction-associated steatohepatitis (MASH) Pre-diabetes Sleep apnea BMI 40.0-44.9, adult Hypertension Metabolic dysfunction-associated steatohepatitis (MASH) Sleep apnea Type 2 diabetes mellitus [facility] Work Phone: Evaluation + Plan note No data available for this section [facility] Future Appointments Appointment Date:06/06/2022 01:00:00 PM Scheduled Provider:RAJNI MORA PA-C Location:[facility] Appointment Type:URO Office Visit [facility] Future Appointments Appointment Date:09/12/2023 01:30:00 PM Scheduled Provider:Forest Gonzalez MD [facility] Type:Cardiology Follow Up (FT) Future Scheduled Tests Radiology* Echo Transthoracic Complete 08/02/23 * US LE Venous Duplex Bilateral 08/02/23 [facility] Future Appointments Appointment Date:08/23/2023 07:15:00 AM Scheduled Provider: Location:FT.MAMMOGRAM Appointment Type:MA Screen (FT) Appointment Date:09/12/2023 01:30:00 PM Scheduled Provider:Forest Gonzalez MD [facility] Type:Cardiology Follow Up (FT) Future Scheduled Tests Radiology* MA Mamm Screen w/CAD if perf and 3D Gunnar 08/23/23 [facility] Future Appointments Appointment Date:09/12/2023 01:30:00 PM Scheduled Provider:Forest Gonzalez MD Location:FT.Cardiology Clinic Appointment Type:Cardiology Follow Up (FT) Appointment Date:09/16/2023 09:00:00 AM Scheduled Provider:Hu Davis DO Location:FT.[facility] Appointment Type:Pain Management - New (FT) [facility] Future Appointments Appointment Date:09/16/2023 09:00:00 AM Scheduled Provider:Hu Davis DO [facility] Type:[facility] Management - New (FT) [facility] Future Appointments Appointment Date:10/17/2023 08:30:00 AM Scheduled Provider:Hu Davis DO Location:FT.[facility] Appointment Type:Pain Management - New (FT) [facility] [place] noteNo assessment information available [facility] Work Phone: evaluation note* Diagnosis Acquired hypothyroidism- Primary Unspecified hypothyroidism Class 3 severe obesity with serious comorbidity and body mass index (BMI) of 40.0 to 44.9 in adult, unspecified obesity type (HCC) documented in this encounter [facility] note* Diagnosis Onset Date Resolution Status Encounter for screening colonoscopy acute Hepatic steatosis acute [facility] Work Phone: evaluation note* Diagnosis Primary insomnia Persistent disorder of initiating or maintaining sleep [facility] encounter [facility]* Diagnosis Class 3 severe obesity with serious comorbidity and body mass index (BMI) of 40.0 to 44.9 in adult, unspecified obesity type (HCC) documented in this encounter [facility] note* Diagnosis Onset Date Resolution Status Encounter for screening colonoscopy acute Hepatic steatosis acute Hepatic steatosis acute [facility] Work Phone: evaluation note* Diagnosis Class 3 severe obesity with serious comorbidity and body mass index (BMI) of 40.0 to 44.9 in adult, unspecified obesity type (HCC)- Primary documented in this encounter [facility] note* Diagnosis Onset Date Resolution Status Hepatic steatosis acute Fatty liver acute Metabolic dysfunction-associated steatohepatitis (MASH ) acute [facility] Work Phone: History general Narrative - Reported* Type Description Date Medical History Hypertension Medical History kidney stones Medical History obesity Medical History thyroid disease Surgical History cholecystectomy Surgical History Lumbar Decompression with fusio n L5-S1 Surgical History ankle surgery Surgical History hysterectomy Surgical History shoulder surgery Hospitalization History see austin Hx charming charlie Other Hospital Discharge instructions No data available for this section [facility] Additional Instructions Follow-up with your primary care doctor Return to ED if develop worsening [facility] Work Phone: Hospital Discharge instructionsAmbulatory Orders* Referral to Weight Management Time Frame: 12/24/23, Location: None [facility] Work Phone: Progress note No data available for this section [facility] Summary Purpose Family History Relationship Condition Age at Onset Recorded Date/T latesha Not Specified Chronic obstructive pulmonary disease Un known father Malignant neoplasm Unknown Hypertension Unknown Not Specified Malignant neoplasm Unknown Relationship Condition Age at Onset Recorded Date/T latesha mother Chronic obstructive pulmonary disease Unknown father Malignant neoplasm Unknown Hypertension Unknown maternal grandfather Malignant neoplasm Unknown Advance Directives Advance Directive Response Recorded Date/ Time Advance [...] Referral Specialty Diagnoses / Procedures Referred By Contflaoc t Referred To Contact Diagnoses Class 3 severe obesity with serious comorbidity and body mass index (BMI) of 40.0 to 44.9 in adult, unspecified obesity type (HCC) Procedures ENDOCRINE MEDICAL WEIGHT MANAGEMENT OFFICE/OUTPATIENT [facility] 60-74 MINUTES Elly Galicia MD [address] [place] [address] Referral ID Status Reason Start Date Expiration Date Visits Requested Visits Authorized [id number] Pending Review PCP Requested Referral 3 06/23/2024 1 1 Additional Source Comments INFORMATION SOURCE (unrecogn ized section and content) DATE CREATED AUTHOR 09/14/2019 [facility] DATE CREATED AUTHOR AUTHOR'S ORGANIZ ATION 03/28/[address] [facility] dical Specialist DATE CREATED AUTHOR AUTHOR'S ORGANIZ ATION 12/19/2023 [facility] DATE CREATED AUTHOR AUTHOR'S ORGANIZ ATION [facility]/19/20[facility] DATE CREATED AUTHOR AUTHOR'S ORGANIZ ATION 04/18/[address] [facility] dical Specialists EPIC DATE CREATED AUTHOR AUTHOR'S ORGANIZ ATION 05/05/2024 [facility] ys[facility] Group Care Team (unrecognized sect ion and content) Team Status: Active Member Role Status Dates Lenora Santos PA-C Primary Care Provider Active Team Status: Inactive Member Role Status Dates Lenora Santos PA-C Primary Care Provider Active Regino Metcalf DO Emergency Provider Active Electronic Tech Relationship Specialty Start Date End Date Neli Slater MD PCP - General Family Medicine 03/19/11 Lenora Santos PA-C [address] [place] [address] Referring Family Medicine 03/18/23 Team Status: Inactive Member Role Status Dates Lenora Santos PA-C Primary Care Provider Active Allan Dimas PA-C Emergency Provider Active Electronic Tech Relationship Specialty Start Date End Date Renetta Chavarria MD [address] [place] [address] PCP - General Family Medicine 01/04/23 Lenora Santos PA [address] [place] [address] Physician Barrel Assembler Family Medicine 01/04/23 Team Status: Inactive Member [...] September 19, 2023 End: September 19, 2023 Electronic Tech Relationship Specialty Start Date End Date Renetta Chavarria MD [address] [place] [address] PCP - General Family Medicine 01/04/23 Lenora Santos PA [address] [place] [address] Physician Barrel Assembler Family Medicine 01/04/23 Electronic Tech Relationship Specialty Start Date End Date Neli Slater MD PCP - General Family Medicine 03/19/11 Lenora Santos [place] [place] [address] Referring Family Medicine 03/18/23 Team Status: Active [...] Team Status: Inactive Member Role Status Dates eLnora Santos PA-C Primary Care Provider Active Start: September 25, 2023 End: September 25, 2023 Forest Giordano APRN Attending Provider Active Start: September 25, 2023 End: September 25, 2023 Electronic Tech Relationship Specialty Start Date End Date Neli Slater MD PCP - General Family Medicine 03/19/11 Lenora Santos PA-C [address] [facility] [place] [address] Referring Family Medicine 03/18/23 Team Status: Inactive [...] March 28, 2024 End: March 28, 2024 Team Status: Active Member Role Status Dates Lenora Santos PA-C Primary Care Provider Active Start: March 30, 2024 Tobi Goodman DO Attending Provider Active Sta rt: March 30, 2024 Team Status: Inactive Member Role Status Dates Lenora Santos PA-C Primary Care Provider Active Start: April 24, 2024 End: April 24, 2024 Tank Xavier MD Attending Provider Active Start: April 24, 2024 End: April 24, 2024 Team Status: Inactive Member Role Status Dates Lenora Santos PA-C Primary Care Provider Active Start: April 30, 2024 End: April 30, 2024 SARAI Posadas Attending Provider Active S tart: April 30, 2024 End: April 30, 2024 Team Status: Active Member Role Status Dates Lenora Santos PA-C Primary Care Provider Active Start: April 30, 2024 Kamilah Ward MD Attending Provider Active Start: April 30, 2024 Tank Xavier MD Referring Provider Active Start: April 30, 2024 Team Status: Inactive Member Role Status Dates Lenora Santos PA-C Primary Care Provider Active Start: April 30, 2024 End: April 30, 2024 Kamilah Ward MD Attending Provider Active Start: April 30, 2024 End: April 30, 2024 Tank Xavier MD Referring Provider Active Start: April 30, 2024 End: April 30, 2024 Team Status: Inactive Member Role Status Dates Lenora Santos PA-C Primary Care Provider Active Start: May 04, 2024 End: May 04, 2024 SARAI Posadas Attending Provider Active S tart: May 04, 2024 End: May 04, 2024 Team Status: Active Member Role Status Dates Lenora Santos PA-C Primary Care Provider Active Start: May 04, 2024 Tank Xavier MD Attending Provider Active Start: May 04, 2024 Team Status: Inactive Member Role Status Dates Lenora Santos PA-C Primary Care Provider Active Start: May 04, 2024 End: May 04, 2024 Tank Xavier MD Attending Provider Active Start: May 04, 2024 End: May 04, 2024 Goals (unrecognized section and content) Goals may be documented in a n alternate section REASON FOR VISIT (unrecogniz ed section and content) Reason Comments Follow Up Thyroid Reason Comments Med Refill Reason Comments Initial Consult Specialty Diagnoses / Procedures Referred By Diallo webster Referred To Contact Diagnoses Class 3 severe obesity with serious comorbidity and body mass index (BMI) of 40.0 to 44.9 in adult, unspecified obesity type (HCC) Procedures ENDOCRINE MEDICAL WEIGHT MANAGEMENT OFFICE/OUTPATIENT [facility] 60-74 MINUTES Elly Galicia MD [address] [place] [address] Referral ID Status Reason Start Date Expiration Date V isits Requested Visits Authorized [id number] Closed PCP Requested Referral 06/24/2023 06/23/2024 1 1 Reason Comments Follow Up Source Comments (unrecognize d section and content) In the event this informatio n is protected by the Federal Confidentiality of Alcohol and Drug Abuse Patient Records regulations: The Federal rules restrict any use of the information to criminally investigate or prosecute any alcohol or drug abuse patient.[facility] the event this information is protected by the Federal Confidentiality of Alcohol and Drug Abuse Patient Records regulations: The Federal rules restrict any use of the information to criminally investigate or prosecute any alcohol or drug abuse patient.[facility] the event this information is protected by the Federal Confidentiality of Alcohol and Drug Abuse Patient Records regulations: The Federal rules restrict any use of the information to criminally investigate or prosecute any alcohol or drug abuse patient.[facility] the event this information is protected by the Federal Confidentiality of Alcohol and Drug Abuse Patient Records regulations: The Federal rules restrict any use of the information to criminally investigate or prosecute any alcohol or drug abuse patient.[facility] FOR RECORDS PERTAINING TO PATIENTS WHO ARE [...] BE BASED ON THE PRIMARY CLINICAL RECORDS. [facility] [employer] [facility] provides no warranty or guarantee of the accuracy or completeness of information in this document.
[2024-05-07 11:43] LABS: Basophils Absolute Auto 0.1 10^3/uL (0.0-0.1); Eosinophils Absolute Auto 0.1 10^3/uL (0.0-0.7); Eosinophils Percent Auto 1.6 % (0.9-7.0); Hematocrit 46.1 % (36.0-48.0); Hemoglobin 15.6 g/dL (12.0-16.0); Immature Granulocytes Abs Auto 0.01 10^3/uL (0.00-0.03); Immature Granulocytes Pct Auto 0.2 % (0.0-0.5); Lymphocytes Percent Auto 47.8 % (20.5-60.0); Mean Corpuscular HGB Conc 33.8 g/dL (29.9-35.2); Mean Corpuscular Hemoglobin 31.3 pg (26.7-34.0); Mean Corpuscular Volume 92.6 fL (81.0-99.0); Mean Platelet Volume 10.6 fL (9.5-13.5); Monocytes Absolute Auto 0.4 10^3/uL (0.3-0.8); Neutrophils Absolute Auto 2.7 10^3/uL (1.4-6.5); Neutrophils Percent Auto 42.4 % (43.0-75.0); Platelet Count 204 10^3/uL (150-450); Red Blood Count 4.98 10^6/uL (4.20-5.40); Red Cell Distribution Width 12.2 % (11.0-15.0); White Blood Count 6.3 10^3/uL (4.0-11.0)
--- NOTE | 2024-05-07 11:43 | P.GSHP_ITS ---
History of Present Illness History of Present Illness Chief complaint: Primary osteoarthritis right ankle foot Narrative: Patient presents for preadmission testing. The patient reports 3 previous surgeries on her right ankle and still has pain and instability. She states after long periods of time on her feet, she does have some mild swelling. She is not currently taking any pain medications, but has been intermittently using a wrap or brace to help with her discomfort. She denies numbness, tingling, wea kness, or any other complaints. She states she was diagnosed with MANRIQUEZ in the last year, and was recently diagnosed with diabetes and has started Ozempic. She states her procedure was rescheduled due to hypokalemia, and subsequently her blood pressure medication was changed and her potassium supplementation has been increased. Review of Systems 2 ROS Narrative REVIEW OF SYSTEMS: Negative except as stated in HPI, ten or more systems reviewed. Constitutional: No fever, chills, weakness ENT: No sore throat or epistaxis Cardiovascular: No edema, chest pain, palpitations, or activity intolerance Respiratory: No shortness of breath, cough, or wheezing Musculoskeletal: No joint pain or swelling Gastrointestinal: No abdominal pain, constipation, diarrhea, or vomiting Genitourinary: No dysuria or hematuria Neurological: No numbness, tingling, weakness, or headache Psychiatric: No mood changes PFSH [facility] Medical History (Updated 05/07/24 @ 11:43 by Tiffanie Stephenson NP) Hypokalemia ?E87.6 - Hypokalemia (ICD-10) Rosacea ?L71.9 - Rosacea, unspecified (ICD-10) Carpal tunnel syndrome ?G56.00 - Carpal tunnel syndrome, unspecified upper limb (ICD-10) Back pain ?M54.9 - Dorsalgia, unspecified (ICD-10) Insomnia ?G47.00 - Insomnia, unspecified (ICD-10) COVID-19 ?U07.1 - COVID-19 (ICD-10) Sleep apnea ?G47.30 - Sleep apnea, unspecified (ICD-10) Sepsis ?A41.9 - Sepsis, unspecified organism (ICD-10) S/P extracorporeal shock wave therapy ?Z98.890 - Other specified postprocedural states (ICD-10) Kidney stones ?N20.0 - Calculus of kidney (ICD-10) Seasonal allergies ?J30.2 - Other seasonal allergic rhinitis (ICD-10) Extremity edema ?R60.0 - Localized edema (ICD-10) Diabetes ?E11.9 - Type 2 diabetes mellitus without complications (ICD-10) Postoperative nausea and vomiting ?R11.2 - Nausea with vomiting, unspecified (ICD-10) ?Z98.890 - Other specified postprocedural states (ICD-10) Deep vein thrombosis ?I82.409 - Acute embolism and thrombosis of unspecified deep veins of unspecified lower extremity (ICD-10) MANRIQUEZ (nonalcoholic steatohepatitis) ?K75.81 - Nonalcoholic steatohepatitis (MANRIQUEZ) (ICD-10) Hypothyroid ?E03.9 - Hypothyroidism, unspecified (ICD-10) Hypertension ?I10 - Essential (primary) hypertension (ICD-10) Liver disease ?K76.9 - Liver disease, unspecified (ICD-10) Other specified acquired deformities of musculoskeletal system ?M95.8 - Other specified acquired deformities of musculoskeletal system (ICD- 10) 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 - Osteochondritis dissecans of unspecified site (ICD-10) Contracture, right ankle ?M24.571 - Contracture, right ankle (ICD-10) Primary osteoarthritis, right ankle and foot ?M19.071 - Primary osteoarthritis, right ankle and foot (ICD-10) Surgical History (Updated 03/30/24 @ 10:33 by Tiffanie Stephenson NP) S/P ureteral stent placement ?Z96.0 - Presence of urogenital implants (ICD-10) S/P cystoscopy ?Z98.890 - Other specified postprocedural states (ICD-10) History of carpal tunnel release ?Z98.890 - Other specified postprocedural states (ICD-10) History of nasal septoplasty ?Z98.890 - Other specified postprocedural states (ICD-10) History of wisdom tooth extraction ?K08.409 - Partial loss of teeth, unspecified cause, unspecified class (ICD- 10) History of esophagogastroduodenoscopy (EGD) ?Z98.890 - Other specified postprocedural states (ICD-10) History of colonoscopy ?Z98.890 - Other specified postprocedural states (ICD-10) History of liver biopsy ?Z98.890 - Other specified postprocedural states (ICD-10) H/O lumbosacral spine surgery ?Z98.890 - Other specified postprocedural states (ICD-10) H/O shoulder surgery ?Z98.890 - Other specified postprocedural states (ICD-10) History of ankle surgery ?Z98.890 - Other specified postprocedural states (ICD-10) History of hysterectomy ?Z90.710 - Acquired absence of both cervix and uterus (ICD-10) History of cholecystectomy ?Z90.49 - Acquired absence of other specified parts of digestive tract (ICD- 10) Family History (Updated 03/30/24 @ 10:33 by Tiffanie Stephenson NP) Other Cancer Family history of COPD (chronic obstructive pulmonary disease) Family history of diabetes mellitus Family history of hypertension Liver disease Social History (Updated 03/30/24 @ 10:24 by Tiffanie Stephenson NP) Within the past year, how often did you have a drink containing alcohol: never Score interpretation: A score less than 3 is consistent with normal alcohol consumption. Smoking status: Never smoker Non-prescribed substance use: denies use Highest level of school completed/degree received: Associate degree: academic program Meds Home Medications and Allergies Home Medications ?Medication ?Instructions ?Recorded ?Confirmed ?Type levothyroxine 50 mcg tablet 50 mcg PO DAILY 03/30/24 04/21/24 History minocycline 100 mg capsule 100 mg PO DAILY 03/30/24 04/21/24 History montelukast 10 mg tablet 10 mg PO DAILY 03/30/24 04/21/24 History potassium chloride 20 mEq 40 meq PO DAILY 03/30/24 04/21/24 History tablet,extended release resmetirom 100 mg tablet 100 mg PO DAILY 03/30/24 04/21/24 History (Rezdiffra) zolpidem 10 mg tablet 10 mg PO QPM 03/30/24 04/21/24 History metoprolol succinate 25 mg 25 mg PO DAILY 04/21/24 05/07/24 History tablet,extended release 24 hr metformin 500 mg tablet,extended 1,000 mg PO DAILY 05/07/24 05/07/24 History release 24 hr semaglutide 0.25 mg or 0.5 mg (2 0.25 mg subcut QWEEK 05/07/24 05/07/24 History mg/3 mL) subcutaneous pen injector (Ozempic) Allergies Allergy/AdvReac Type Severity Reaction Status Date / Time acetaminophen [From Vicodin] Allergy delusional, Verified 04/21/24 10:03 liver disease adhesive Allergy Rash Verified 04/21/24 10:03 hydrocodone [From Vicodin] Allergy delusional Verified 04/21/24 10:03 sulfamethoxazole AdvReac yeast Verified 04/21/24 10:03 [From Bactrim] infection trimethoprim [From Bactrim] AdvReac yeast Verified 04/21/24 10:03 infection Exam Narrative Exam Narrative: Constitutional: Awake, alert, comfortable, well-appearing, nontoxic, interactive, vital signs as charted Head: Normocephalic, atraumatic Neck: Supple, normal appearance, normal range of motion, no meningeal signs, no lymphadenopathy Respiratory: No respiratory distress, breath sounds clear Cardiovascular: Regular rate and rhythm, strong and regular heart tones Musculoskeletal: Diffuse anterior right ankle tenderness with palpation, limited ankle range of motion due to pain, good capillary refill, sensation intact Skin: No rashes or induration, no lesions, only visible skin inspected Neuro: No neurological deficits, normal sensation Psychiatric: Oriented ?3, normal affect Assessment and Plan Assessment and Plan (1) Primary osteoarthritis, right ankle and foot: (2) Contracture, right ankle: (3) Osteochondritis dissecans: (4) Other specified acquired deformities of musculoskeletal system: Plan Right ankle and subtalar joint fusion with some tissue balancing and bone graft as needed scheduled with Dr. García May 21, 2024.
[2024-05-07 11:59] LABS: INR 0.98; Prothrombin Time 10.4 sec (9.0-11.6)
[2024-05-07 12:18] LABS: BUN Creatinine Ratio 17.9; Calcium 9.4 mg/dL (8.5-10.1); Carbon Dioxide 24.9 mmol/L (21.0-32.0); Chloride 104 mmol/L (98-107); Estimated GFR (African America >60 (>=60 mL/min/1.73m^2); Estimated GFR (Non-African Ame >60 (>=60 mL/min/1.73m^2); Glucose 96 mg/dL (74-106); Potassium 3.9 mmol/L (3.5-5.1); Sodium 137 mmol/L (136-145)
[2024-05-07 13:01] LABS: Alanine Aminotransferase 102 U/L (14-59); Albumin Level 3.6 g/dL (3.4-5.0); Alkaline Phosphatase 72 U/L (46-116); Aspartate Amino Transferase 64 U/L (15-37); Bilirubin Direct 0.2 mg/dL (0.0-0.2); Bilirubin Total 0.8 mg/dL (0.2-1.0); Globulin 3.7 g/dL; Total Protein 7.3 g/dL (6.4-8.2)
== END 2024-05-07 10:58 | disposition home or self-care (01) ==
LOC: PST 10:58
PROVIDERS: PCP Physician Assistant; Visit Provider Podiatrist Foot & Ankle Surgery
DX: Z01.812 Encounter for preprocedural laboratory examination (principal); Z01.818 Encounter for other preprocedural examination; M93.20 Osteochondritis dissecans of unspecified site; M19.071 Primary osteoarthritis, right ankle and foot
CPT/HCPCS: 36415; 80048; 80076; 85025; 85610; 85730; G0463

== ENCOUNTER 2024-05-22 10:22 | Observation (INO) | payer BC, SELFPAY ==
[2024-05-07 11:39] VITALS: BP 128/78; PULSE 69; TEMP 36.4; O2SAT 100; BMI 41.6
[2024-05-21] VITALS (10 sets, daily range): BP systolic 115–137; BP diastolic 63–86; PULSE 59–69; TEMP 36.1–36.5; O2SAT 94–99; BMI 41.1; BMI 40.9
--- NOTE | 2024-05-21 | FL_ITS ---
[address] [address] Patient Name: DEJAH DYKES MRN: [id number] date: 1970 Sex: F Assigned Patient Location: [facility] Current Patient Location: [facility] Accession/Order Number: [id number] Exam Date: 05/21/2024 12:58 Report Date: 05/25/2024 14:39 At the request of: SAURABH MOREL Procedure: FL fluoroscopy <1hr NON-READ EXAM: FL fluoroscopy <1hr NON-READ HISTORY: TECHNIQUE: FINDINGS: Please see Operative Report. Electronically authenticated by: RADIOLOGIST NO Date: 05/25/2024 14:39
--- OUTSIDE RECORDS SUMMARY | 2024-05-21 07:04 | XMS_ITS | CCD ---
Author Organization [facility] Care Team Providers Care Academic Support Specialist Name Role Phone MATTHEW RIVER H Admitting Unavailable PERICO MATTHEW H Attending Unavailable LENORA SANTOS Primary Care Unavailable ILANA MEDEIROS V Consulting Unavailable MATTHEW RIVER Consulting Unavailable Lenora SANTOS Primary Care Physician Adriana Maier Unavailable Unavailable THELMA Santos Primary Care Provider [phone]( [phone] DO Regino Metcalf Emergency Provider Lenora Alvarez Unavailable Neli Slater MD Primary Care Provider Lenora Santos PA-C Unavailable THELMA Santos Primary Care Provider [phone]( [phone] THELMA Dimas Emergency Provider Renetta Chavarria MD Primary Care Provider Lenora Sandy Unavailable [phone] DANNY Giordano Attending Provider Fibroscan, Temporary Attending Provider DANNY Conroy Referring Provider THELMA Santso Primary Care Provider THELMA Dimas Emergency Provider DANNY Giordano Attending Provider Fibroscan, Temporary Attending Provider DANNY Conroy Referring Provider MD Jorge Alberto Rowe Attending Provider [phone] THELMA Santos Primary Care Provider NANDAM, NEEHARIKA Referring [...] Care Provider MD Kamilah Ward Attending Provider [phone] Hu Davis Attending Unavailable Hu Davis Referring [...] NONE, XXXX Referring Unavailable Forest Gonzalez Attending Unavaila Forest Jackson Admitting Unavaila Lenora Zamarripa Referring Unavailable Forest Gonzalez Admitting Unavaila Forest Jackson Attending UnavailForest Moreno Consulting Unavaila Forest Jackson Attending Unavaila Forest Jackson Referring Unavaila Forest Jackson Admitting UnavailMD Forest Moreno Consulting Unava ilForest Schmidt Consulting UnavailHu Kuhn Referring Unavailable DO Hu Davis Admitting UnavailHu Triplett Attending Unavailable MD Tank Xavier Attending Provider MD Tank Xavier Referring Provider Lenora Santos [...] Dimas Admitting Unavailable Allan Dimas Attending Unavailable LENORA SANTOS Attending Unavailable LENORA SANTOS Attending Unavailable LENORA SANTOS Attending Unavailable LENORA SANTOS Attending Unavailable LENORA SANTOS Attending Unavailable LENORA SANTOS Attending Unavailable LENORA SANTOS Attending Unavailable LENORA SANTOS Attending Unavailable MARGE ALMANZA Attending Unavailable LENORA SANTOS Attending Unavailable Allergies Allergy Classification Reported Allergen(s) Allergy Type Date of Onset Reaction(s) Facility Acetaminophen / HYDROcodone (1 source) Acetaminophen / HYDROcodone; Translations: [acetaminophen-hydr ocodone] Drug Allergy Hallucinations (finding) [facility] Sulfamethoxazole / Trimethoprim (1 source) Sulfamethoxazole / Trimethoprim; Translations: [sulfamethoxazole-t rimethoprim] Drug Allergy Weal (disorder) [facility] (20 sources) Acetaminophen / HYDROcodone; Translations: [acetaminophen-hydr ocodone] Drug Allergy 011 Hallucinations (finding), Other: See Comments [facility] (20 sources) Acetaminophen; Translations: [acetaminophen] Drug Allergy 023 Other: See Comments, Other [facility] (6 sources) HYDROcodone; Translations: [hydrocodone] Drug Allergy 023 Hallucinating [facility] (5 sources) Adhesive Tape; Translations: [ADHESIVE TAPE (ROSINS)] Allergy to substance 011 Rash, Itching [facility] Work Phone: (5 sources) Seasonal allergy; Translations: [SEASONAL ALLERGIES] Allergy to substance 011 Itching, Other: See Comments [facility] (6 sources) Acetaminophen / HYDROcodone; Translations: [HYDROCODONE-ACETAM INOPHEN] Drug Allergy 011 Hallucinations [facility] (5 sources) Other Allergy to substance 011 Itching, Other [facility] (5 sources) Wound Dressing Adhesive Drug Allergy 011 Itching, Rash [facility] (8 sources) Sulfamethoxazole / Trimethoprim; Translations: [sulfamethoxazole-t rimethoprim] Drug Allergy 024 Weal (disorder), Other [facility] (12 sources) Sulfamethoxazole; Translations: [sulfamethoxazole] Drug Allergy yeast infection [facility] (12 sources) Trimethoprim; Translations: [trimethoprim] Drug Allergy yeast infection [facility] Medications Current Medications Medication Drug Class(es) Dates [...] tab(s), Oral, Daily, 90 tab(s), Refill(s) 1, [facility]/pharmacy #[id number] Start Date: 04/08/19 Status: Ordered Start: 08-06-2009 bisoprolol-hyd roCHLOROthiazide (ZIAC) 5-6.25 mg per tablet Take by mouth. 0 08/06/2009 Active Comment on above: Take by mouth. ciprofloxacin 500 mg oral tablet (8 sources) Quinolone Antimicrobial Start: take 1 tablet by mouth once daily Cipro 500 mg Tab See Instructions, 1 tab po day prior to procedure, 1 tab po following procedure, # 2 tab(s), Refills(s) 0, Pharmacy: [facility]/pharmacy #[id number], 163, cm, 03/28/22 9:01:00 EDT, Height/Length Dosing, 105, kg, 03/28/22 9:01:00 EDT, Weight Dosing Start Date: 03/28/22 Status: Ordered cyclobenzaprine hydrochloride 10 mg oral tablet (20 sources) Muscle Relaxant Start: take 1 tablet by mouth three times daily as needed for muscle spasms cyclobenzaprine (Flexeril) 10 MG tablet Indications: Sciatica of right side , Myalgia , Herniated lumbar intervertebral disc , Right hip pain , Joint pain of lower extremity Take 1 tablet (10 mg) by mouth 3 (three) times a day as needed for muscle spasms 90 tablet 3 11/07/2023 Active Start: 07-17-2017 End: 09-19-2023 take 10 mg by mouth once daily at bedtime Cyclobenzaprine Discontinued 10 MG PO Daily at bedtime 40 14 July 23, 2017 6:20pm September 19, 2023 11:09am DULoxetine 30 mg delayed release oral capsule (2 sources) Serotonin and Norepinephrine Reuptake Inhibitor Start: 08-09-2023 take 1 capsule by mouth in the morning DULoxetine (Cymbalta) [address] capsule Indications: Joint pain of lower extremity Take 1 capsule (30 mg) by mouth in the morning and 1 capsule (30 mg) before bedtime. Do not crush or chew.. 60 capsule 3 08/09/2023 Active estradiol 0.1 mg/ml vaginal cream (20 sources) Estrogen Start: 04-30-2023 estradiol (Estrace) 0.1 MG/GM vaginal cream Indications: Chronic vaginitis Insert 1 g into the vagina in the morning. Please give three tubes. 42.5 g 3 04/30/2023 Active Start: 06-01-2022 Estrace 0.1 mg /g Cream See Instructions, 42.5 gm, Refill(s) 5, insert 1gm vaginally & apply pea sized amount around the urethra nightly x 3 weeks, then 3x per week thereafter, [facility]/pharmacy #[id number], 162.5, cm, 04/24/22 15:43:00 EDT, Height/Length Dosing, 105, kg, 03/28/22 9:01:00 EDT, Weight Dosing Start Date: 06/01/22 Status: Ordered Start: 03-28-2022 Estrace 0.1 mg /g Cream See Instructions, 42.5 gm, Refill(s) 5, insert 1gm vaginally & apply pea sized amount around the urethra nightly x 3 weeks, then 3x per week thereafter, [facility]/pharmacy #[id number], 163, cm, 03/28/22 9:01:00 EDT, Height/Length Dosing, 105, kg, 03/28/22 9:01:0... Start Date: 03/28/22 Status: Ordered levothyroxine sodium 0.05 mg oral tablet (20 sources) l-Thyroxine Start: 09-12-2023 levothyroxine 50 mcg (0.05 mg) Tab Refills(s) 0 Start Date: 09/12/23 Status: Ordered Start: 03-15-2023 take 1 tablet by vargas th before mealtime levothyroxine (Synthroid) 50 MCG tablet Indications: Acquired hypothyroidism (CMS/HCC) , Weight gain Take 1 tablet (50 mcg) by mouth in the morning. Take before meals. 90 tablet 3 11/07/2023 Active take 1 capsule by mo uth once daily before breakfast levothyroxine 50 mcg cap Take 50 mcg by mouth daily before breakfast. 0 Active take 1 tablet by vargas th once daily in the morning Levothyroxine Sodium [...] release oral tablet (20 sources) Biguanide Start: 4 take 500 mg by mouth four times daily metformin 500 mg, Oral, QID, Refills(s) 0 Start Date: 01/29/24 Status: Ordered Start: 12-06-2023 End: 04-24-2024 take 1000 mg by mouth once daily Metformin Active 1000 MG PO Daily 60 April 24, 2024 12:00am Start: 10-17-2023 take [...] with dinner. 360 tablet 1 09/26/2023 Active take 1 tablet by vargas th at mealtime, then take 1 tablet by mouth every twenty-four hours metFORMIN, OSM, (Fortamet) 1000 MG 24 hr tablet Take 1,000 mg by mouth in the evening. Take with meals Do not crush, chew, or split. Active Comment on above: First week take one tablet with breakfast daily; second week: take one tablet with breakfast and one tablet with dinner; third week: take two pills with breakfast and one pill with dinner; fourth week and onwards: take two pills with breakfast and two pills with dinner. 24 hr metoprolol succinate 25 mg extended release oral tablet (3 sources) beta-Adrenergic Liza Start: 05-11-2024 take 1 tablet by mouth once daily metoprolol succinate XL (Toprol-XL) 25 MG 24 hr tablet Indications: Essential hypertension (CMS/HCC) TAKE 1 TABLET (25 MG) BY MOUTH DAILY DO NOT CRUSH OR CHEW. 90 tablet 05/11/2024 Active Start: 04-16-2024 take 1 tablet by vargas th once daily metoprolol succinate XL (Toprol-XL) 25 MG 24 hr tablet Indications: Essential hypertension (CMS/HCC) Take 1 tablet (25 mg) by mouth Daily Do not crush or chew. 30 tablet 2 04/16/2024 Active minocycline 100 mg oral capsule (20 sources) Tetracycline-class Drug Start: 04-30-2019 take 1 capsule by mouth once daily minocycline 100 MG capsule Indications: Acne rosacea Take 1 capsule (100 mg) by mouth Daily 90 capsule 3 11/07/2023 Active Start: 07-17-2017 take 45 mg by mouth [...] sources) Leukotriene Receptor Antagonist Start: 1 take 1 tablet by mouth at bedtime montelukast (Singulair) 10 MG tablet Indications: Seasonal allergic rhinitis due to fungal spores Take 1 tablet (10 mg) by mouth at bedtime 90 tablet 3 11/07/2023 Active Comment on above: Take 1 tablet by vargas th daily at bedtime. nebivolol 2.5 mg oral tablet (20 sources) Start: 7 take 1 tablet by mouth once daily Nebivolol (Bystolic) 2.5 mg Tablet Active 2.5 MG PO Daily July 17, 2017 1:00am take 1 tablet by vargas th every twenty-four hours Bystolic 5 MG 1 tablet Orally Once a day Active Potassium (1 source) Potassium Active potassium chloride 20 meq extended release oral tablet (20 sources) Start: 05-11-2024 take 1 tablet by mouth in the morning potassium chloride CR (K-Tab) 20 MEQ ER tablet Indications: Essential hypertension (CMS/HCC) , Hypokalemia TAKE 1 TABLET (20 MEQ) BY MOUTH IN THE MORNING AND 1 TABLET (20 MEQ) BEFORE BEDTIME. 180 tablet 05/11/2024 Active Start: 04-24-2024 take 40 mEq by mouth once avis y Potassium Chloride Active 40 MEQ PO Daily April 24, 2024 9:44am Start: 10-18-2023 End: 04-24-2024 take 20 mEq by mouth once daily Potassium Chloride Dis continued 20 MEQ PO Daily October 18, 2023 12:00am April 24, 2024 9:45am Start: 06-22-2020 take 1 tablet by vargas twice daily potassium chloride 10 mEq ER [...] day(s), # 21 tab(s), Refills(s) 0, Pharmacy: [facility] #[id number], 162, cm, 08/12/23 11:38:00 EST, Height/Length Dosing, 125, kg, 08/12/23 11:38:00 EST, Weight Dosing Start Date: 08/12/23 Stop Date: 08/19/23 Status: Ordered Resmetirom (9 sources) Start: 03-17-2024 take 1 tablet by vargas once daily Resmetirom (Rezdiffra) 100 mg tablet Active 100 MG PO Daily March 17, 2024 12:00am resmetirom 100 MG Oral Tablet [Rezdiffra] (2 sources) Start: 03-03-2024 take 1 tablet by vargas once daily Rezdiffra 100 mg oral tablet 100 mg = 1 tab(s), Oral, Daily, Refills(s) 0 Start Date: 03/03/24 Status: Ordered Rezdiffra 100 MG tablet (3 sources) Start: 02-17-2024 Rezdiffra 100 MG tablet 02/17/2024 Active Semaglutide (12 sources) Start: 04-24-2024 inject 0.25 mg by [...] injector Active 0.5 MG SUBCUT every week 3 March 30, 2024 12:00am 0.5 mg for 4 weeks 0.25 mg, 0.5 mg dose 1.5 ml semaglutide 1.34 mg/ml pen injector (1 source) semaglutide (Oze mpic, 0.25 or 0.5 MG/DOSE,) 2 MG/1.5ML solution pen-injector Inject under the skin Active spironolactone 50 mg oral tablet (19 sources) Aldosterone Antagonist Start: 07-17-20 17 take 50 mg by mouth once daily Spironolactone Active 50 MG PO Daily July 17, 2017 1:00am tamsulosin hydrochloride 0.4 mg oral capsule (1 source) alpha-Adrenergic Liza take 1 capsule by mouth every twenty-four hours Tamsulosin HCl 0.4 MG 1 capsule Orally Once a day Active zolpidem tartrate 10 mg oral tablet (20 sources) gamma-Aminobutyric Acid-ergic Agonist Start: 11-07-19 24 take 1 tablet by mouth once daily at bedtime as needed for sleep zolpidem (Ambien) 10 MG tablet Indications: Primary insomnia TAKE 1 TABLET BY MOUTH ONCE DAILY AT BEDTIME NEEDED FOR SLEEP 90 tablet 1 11/07/2023 Active Start: 03-14-2011 End: 09-18-2023 take 1 tablet by mouth once daily at bedtime as needed for sleep zolpidem (Ambien) 10 MG tablet Indications: Primary insomnia TAKE 1 TABLET BY MOUTH ONCE DAILY AT BEDTIME NEEDED FOR SLEEP 90 tablet 1 11/07/2023 Active Comment on above: Take 1 tablet by [...] Maintenance 4:1) 20 mEq/810 mL (potassium) solution (17 sources) Start: 09-19-2023 End: 10-18-2023 Cardioplegic No.20 (Maint 4:1) (Cardioplegia Maintenance 4:1) 20 mEq/810 mL (potassium) solution Discontinued ML PERFUSION September 19, 2023 1:00am October 18, 2023 2:03pm Start: 09-19-2023 Cardioplegic N o.20 (Maint 4:1) (Cardioplegia Maintenance 4:1) 20 mEq/810 mL (potassium) solution Active ML PERFUSION September 19, 2023 12:00am cephalexin 500 mg oral capsule (19 sources) Cephalosporin Antibacterial Start: 07-23-2017 End: 09-19-2023 take 1 capsule by mouth every eight hours Cephalexin (Keflex) 500 mg capsule Discontinued 500 MG PO Q8H 21 7 July 23, 2017 1:00am September 19, 2023 11:08am docusate sodium 50 mg / sennosides, fdc 8.6 mg oral tablet (19 sources) Start: 07-23-2017 End: 09-19-2023 take 2 tablets by mouth twice daily Sennosides-Docusat e Sodium (Dok Plus) 8.6-50 mg Tablet Discontinued 2 TAB PO Twice daily 40 14 July 23, 2017 1:00am September 19, 2023 11:10am 72 hr fentaNYL 0.025 mg/hr transdermal system (19 sources) Opioid Agonist Start: 07-23-2017 End: 09-19-2023 Fentanyl Discontinued 25 MCG TRANSDERML Every 72 hours 5 July 23, 2017 1:00am September 19, 2023 11:09am ferrous sulfate 324 mg delayed release oral tablet (19 sources) Start: 07-23-2017 End: 09-19-2023 take 324 mg by mouth twice daily Ferrous Sulfate Discontinued 324 MG PO Twice daily 30 30 July 23, 2017 1:00am September 19, 2023 11:09am Prednisone Dose Pack (19 sources) Start: 07-17-2017 End: 07-23-2017 Prednisone Dose Pack Discontinued July 17, 2017 12:00am July 23, 2017 5:18pm Start: 07-17-2017 End: 07-23-2017 Prednisone Dose Pack Discont inued July 17, 2017 1:00am July 23, 2017 6:18pm pregabalin 75 mg oral capsule (19 sources) Start: 09-20-2023 End: 12-06-2023 take 1 capsule by mouth twice daily Pregabalin (Lyrica) 75 mg capsule Discontinued 75 MG PO Twice daily October 18, 2023 12:00am December 06, 2023 9:18am Comment on above: Take 75 mg by mouth. Semaglutide Base (16 sources) Start: 03-17-2024 End: 03-30-2024 inject 1 mL by subcutaneous injection every week Semaglutide Base Discontinued 0.25 ML SUBCUT every week March 17, 2024 12:00am March 30, 2024 10:06am [facility] Pre-filled Syringes using Semaglutide Base. Dispense 1 mL = (Four 0.25 mL pre-filled syringes) Start: 03-17-2024 End: 03-30-2024 inject 1 mL by subcutaneous injection every week Semaglutide Base Discontinued 0.5 ML SUBCUT every week March 17, 2024 12:00am March 30, 2024 [...] week. traMADol hydrochloride 50 mg oral tablet (18 sources) Opioid Agonist Start: 08-12-2023 End: 10-18-2023 Tramadol Discontinued 50 MG PO As Directed August 12, 2023 1:00am October 18, 2023 2:04pm Problems Active Problems Problem Classification Problem Date Documented Da te Episodic/Chronic Anxiety disorders (5 sources) Anxiety; Translations: [Anxiety disorder, unspecified] Onset: 01-04-2023 01-04-2023 Chronic Diabetes mellitus without complication (12 sources) Type 2 diabetes mellitus; Translations: [Type 2 diabetes mellitus without complications] Onset: 05-04-2024 04-24-2024 Chronic Essential hypertension (20 sources) Essential hypertension; Translations: [Essential (primary) hypertension] Onset: 01-04-2023 05-06-2023 Chronic Hepatitis (20 sources) Steatohepatitis; Translations: [Nonalcoholic steatohepatitis (MANRIQUEZ)] Onset: 04-30-2024 12-24-2023 Chronic Miscellaneous mental health disorders (6 sources) Primary insomnia; Translations: [Primary insomnia] Onset: 01-04-2023 01-04-2023 Chronic Mood disorders (20 sources) Depressive disorder; Translations: [Depression] Onset: 02-01-2023 12-11-2018 Chronic Osteoarthritis (9 sources) Degenerative joint disease of ankle AND/OR foot; Translations: [Primary osteoarthritis, unspecified ankle and foot] Onset: 03-20-2011 03-20-2011 Chronic Other aftercare (1 source) Other buttermaker continuous churn (current) drug therapy; Translations: [Other long-term (current) drug therapy] Onset: 05-04-2024 Episodic Other bone disease and musculoskeletal deformities (20 sources) Osteochondritis dissecans; 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] Onset: 02-01-2023 09-08-2019 Chronic Other bone disease and musculoskeletal deformities (9 sources) Osteochondritis dissecans of the talus; Translations: [Osteochondritis dissecans, unspecified ankle and joints of foot] Onset: 03-14-2011 03-14-2011 Chronic Other connective tissue disease (19 sources) Swelling of lower limb; Translations: [Other specified soft tissue disorders] 03-10-2023 Episodic Other inflammatory condition of skin (20 [...] Onset: 12-15-2021 Episodic Other nervous system disorders (19 sources) Impaired cognition; Translations: [Other symptoms and signs involving cognitive functions and awareness] 03-10-2023 Episodic Other nutritional; endocrine; and metabolic disorders (20 sources) Severe obesity; Translations: [Morbid (severe) obesity due to excess calories] Onset: 02-01-2023 09-08-2019 Chronic Other nutritional; endocrine; and metabolic disorders (13 sources) Body mass index 40+ - severely [...] Chronic Other nutritional; endocrine; and metabolic disorders (14 sources) Body mass index (BMI) 40.0-44.9, adult; Translations: [Body Mass Index 40.0-44.9, adult] Onset: 05-06-2023 03-17-2024 Chronic Other screening for suspected conditions (not mental disorders or infectious disease) (20 sources) Patient encounter status; Translations: [Encounter for screening for malignant neoplasm of colon] Onset: 12-06-2023 09-14-2023 Episodic Other upper respiratory disease (20 sources) Seasonal allergic rhinitis; Translations: [Other seasonal allergic rhinitis] Onset: 01-04-2023 04-09-2014 Chronic Phlebitis; thrombophlebitis and thromboembolism (19 sources) Deep venous thrombosis 12-15-2009 Episodic Residual codes; unclassified (1 source) Obstructive sleep apnea syndrome; Translations: [Obstructive sleep apnea (adult) (pediatric)] Onset: 04-05-2023 Chronic Residual codes; unclassified (17 sources) Sleep apnea; Translations: [Sleep apnea, unspecified] Onset: 01-04-2023 05-06-2023 Chronic Residual codes; unclassified (14 sources) Sleep apnea, unspecified; Translations: [Unspecified sleep apnea] Onset: 05-06-2023 03-17-2024 Chronic Screening and history of mental health and substance abuse codes (19 sources) Tobacco use and exposure - finding 09-08-2019 Chronic Spondylosis; intervertebral disc disorders; other back problems (20 sources) Other spondylosis with radiculopathy, cervical region; Translations: [Prolapsed lumbar intervertebral disc] Onset: 08-05-2016 09-16-2019 Chronic Comment on above: L4-5 fusion Thyroid disorders (20 sources) Acquired hypothyroidism; Translations: [...] Problem Classification Problem Date Documented Date Episodic/Chronic Calculus of urinary tract (20 sources) Kidney stone; Translations: [Calculus of kidney] Onset: 03-28-2022 05-14-2013 Episodic Chronic obstructive pulmonary disease and bronchiectasis (3 sources) Bronchitis; Translations: [Bronchitis, not specified as acute or chronic] Onset: 09-30-2023 09-30-2023 Episodic Diabetes mellitus without complication (20 sources) Hyperglycemia; Translations: [Hyperglycemia, unspecified] Onset: 02-14-2023 02-14-2023 Episodic Fluid and electrolyte disorders (6 sources) Hypokalemia; Translations: [Hypokalemia] Onset: 12-15-2021 Episodic Genitourinary symptoms and ill-defined conditions (20 sources) Increased frequency of urination; Translations: [Frequency of micturition] Onset: 03-28-2022 Episodic Other and unspecified benign neoplasm (9 sources) Neuroma; Translations: [Benign neoplasm of peripheral nerves and autonomic nervous system, unspecified] Onset: 08-22-2011 08-22-2011 Episodic Other circulatory disease (20 sources) H/O: hypertension; Translations: [Personal history of other diseases of the circulatory system] Onset: 02-01-2023 12-11-2018 Episodic Other connective tissue disease (5 sources) Muscle pain; Translations: [Myalgia, unspecified site] Onset: 08-13-2023 08-13-2023 Episodic Other diseases of veins and lymphatics (5 sources) Venous stasis edema of right lower limb; Translations: [Venous insufficiency (chronic) (peripheral)] Onset: 06-13-2023 06-13-2023 Episodic Other non-traumatic joint disorders (9 sources) Arthralgia of the ankle and/or foot; Translations: [Pain in unspecified ankle and joints of unspecified foot] Onset: 03-14-2011 03-14-2011 Episodic Other non-traumatic joint disorders (9 sources) Instability of joint of left ankle; Translations: [Other instability, left ankle] Onset: 03-20-2011 03-20-2011 Episodic Other non-traumatic joint disorders (4 sources) Instability of joint of right ankle; Translations: [Other instability, right ankle] Onset: 04-23-2011 04-23-2011 Episodic Other non-traumatic joint disorders (20 sources) Hip pain; Translations: [Pain in right hip] Onset: 09-20-2023 08-12-2023 Episodic Other non-traumatic joint disorders (5 sources) Pain in lower limb; Translations: [Pain in unspecified joint] Onset: 08-09-2023 08-09-2023 Episodic Other non-traumatic joint disorders (1 source) Pain in right knee; Translations: [Pain in right knee] Onset: 10-24-2023 Episodic Other nutritional; endocrine; and metabolic disorders (2 sources) Weight gain; Translations: [Abnormal weight gain] Onset: 02-01-2023 02-01-2023 Episodic Other nutritional; endocrine; and metabolic disorders (3 sources) Weight increased; Translations: [Abnormal weight gain] Onset: 02-01-2023 02-01-2023 Episodic Other upper respiratory infections (5 sources) Acute frontal sinusitis; Translations: [Acute frontal sinusitis, unspecified] Onset: 06-13-2023 06-13-2023 Episodic Residual codes; unclassified (5 sources) Influenza vaccination status; Translations: [Personal history of other drug therapy] Onset: 02-01-2023 02-01-2023 Episodic Residual codes; unclassified (5 sources) Tobacco non-user; Translations: [Other specified health status] Onset: 02-01-2023 02-01-2023 Episodic Spondylosis; intervertebral disc disorders; other back problems (14 sources) Sciatica; Translations: [Sciatica, right side] Onset: 01-04-2023 01-04-2023 Episodic Unclassified (1 source) Lumbar back pain M54.50 Viral infection (3 sources) Herpes zoster; Translations: [Zoster without complications] Onset: 10-04-2023 10-04-2023 Episodic Viral infection (1 source) Disease caused by 2019-nCoV; Translations: [COVID-19] Onset: 09-28-2023 Results Test Name Value Interpretation Reference Range Facility ALL CBC WITH AUTO DIFFon BASOPHILS ABSOLUTE AUTO 0.1 [facility] Basophils/100 WBC (Bld) 1.0 % 0.2 - 2.0 % [facility] Eosinophils/100 WBC (Bld) 1.6 % 0.9 - 7.0 % [facility] Erythrocyte distribution width (RBC) [Ratio] 12.2 % 11.0 - 15.0 % [facility] Hematocrit (Bld) [Volume fraction] 46.1 % 36.0 - 48.0 % [facility] Hemoglobin (Bld) [Mass/Vol] 15.6 g/dL 12.0 - 16.0 g/dL [facility] IMMATURE GRANULOCYTES ABS AUTO 0.01 [facility] Immature granulocytes/100 WBC (Bld) 0.2 % 0.0 - 0.5 % [facility] Interpretation and review of laboratory results Abnormal [facility] LYMPHOCYTES ABSOLUTE AUTO 3.0 [facility] Lymphocytes/100 WBC (Bld) 47.8 % 20.5 - 60.0 % [facility] MCH (RBC) [Entitic mass] 31.3 pg 26.7 - 34.0 pg [facility] [facility] MCHC (RBC) [Mass/Vol] 33.8 g/dL 29.9 - 35.2 g/dL [facility] MCV (RBC) [Entitic vol] 92.6 fL 81.0 - 99.0 fL [facility] Mon[facility]/100 WBC (Bld) 7.0 % 1.7 - 12.0 % [facility] NEUTROPHILS ABSOLUTE AUTO 2.7 [facility] Neutrophils/100 WBC (Bld) 42.4 % Low 43.0 - 75.0 % [facility] Platelet mean volume (Bld) [Entitic vol] 10.6 fL 9.5 - 13.5 fL [facility] TBH EO # 0.1 [facility] PLT 204 [facility] RBC 4.98 [facility] WBC 6.3 [facility] CLINISYNC [facility] Creatinine [Mass/volume] in UrineOrdered By: Tank Xavier on 05-04-2024 Creatinine (U) [Mass/Vol] 165.00 mg/dL [facility] Comment on above: No reference range e stablished MicroAlb Creat Ratio,UOrdere d By: Tank Xavier on 05-04-2024 Albumin DL <= 20 mg/L (U) [Mass/Vol] 0.8 mg/dL 0.0-1.8 [facility] Comment on above: Performed By: #### B 12, URMACRERAT #### [facility] [address] MicroAlb Creat Ratio,Uon Creatinine, Urine (Random) 165.00 mg/dL Normal [facility] Comment on above: Result Comment: No r eference range established Performed By: #### B 12, URMACRERAT #### [facility] [address] Microalbumin/Creatinine Ratio 4.8 mg/g Normal 0.0-30.0 [facility] Comment on above: Result Comment: 30-3 00 mg/g indicates an increased risk for diabetic nephropathy. Greater than 300 mg/g is consistent with clinical nephropathy. (Am. J. Kidney Disease 1995, 25:107) PERFORMED BY: [place] [address] PATHOLOGIST LENDING ADVISOR LORRAINE DIETZ M.D. Performed By: #### B 12, URMACRERAT #### [facility] [address] [place] [id number] [facility] Urine microalbumin/creatinin e mass ratioOrdered By: Tank Xavier on 05-04-2024 Albumin/Creatinine DL <= 20 mg/L (U) [Mass ratio] 4.8 mg/g 0.0-30.0 [facility] Comment on above: 30-300 mg/g indicate s an increased risk for diabetic nephropathy. Greater than 300 mg/g is consistent with clinical nephropathy. (Am. J. Kidney Disease 1995, 25:107) Vitamin [id number] By: Richard Xavier on 05-04-2024 Cobalamin (Vitamin B12) [Mass/Vol] 291 pg/mL 180-914 [facility] Comment on above: Result Comment: PERF ORMED BY: [facility] [address] [place] [address] PATHOLOGIST LENDING ADVISOR LORRAINE DIETZ M.D. Performed By: #### B 12, URMACRET ####[facility] [address] [place] [id number] [facility] Alanine aminotransferase [En zymatic activity/volume] in Serum or PlasmaOrdered By: Imad Asaad on 04-30-2024 ALT [Catalytic activity/Vol] 66 U/L High 7-52 [facility] Comment on above: Performed By: #### C MP #### [facility] [address] [place] [id number] [place] Albumin [Mass/volume] in Ser um or Plasma by Bromocresol green (BCG) dye binding methoOrdered By: Imad Asaad on 04-30-2024 Albumin BCG dye [Mass/Vol] 4.3 g/dL 3.5-5.7 [facility] Alkaline phosphatase [Enzyma tic activity/volume] in Serum or PlasmaOrdered By: Imad Asaad on 04-30-2024 ALP [Catalytic activity/Vol] 60 U/L 34-104 [facility] Comment on above: Result Comment: PERF ORMED BY: [facility] [address] [place] [address] PATHOLOGIST LENDING ADVISOR LORRAINE DIETZ M.D. Performed By: #### C MP #### [address] Aspartate aminotransferase [ Enzymatic activity/volume] in Serum or PlasmaOrdered By: Imad Asaad on 04-30-2024 AST [Catalytic activity/Vol] 60 U/L High 13-39 [facility] Comment on above: Performed By: #### C MP #### [address] Bilirubin.total [Mass/volume ] in Serum or PlasmaOrdered By: Imad Asaad on 04-30-2024 Bilirubin [Mass/Vol] 0.7 mg/dL 0.3-1.0 [facility] Comment on above: Performed By: #### C MP #### [address] Calcium [Mass/volume] in Ser um or PlasmaOrdered By: Imad Asaad on 04-30-2024 Calcium [Mass/Vol] 9.7 mg/dL 8.6-10.3 [facility] Comment on above: Performed By: #### C MP #### [address] Carbon dioxide, total [Moles /volume] in Serum or PlasmaOrdered By: Imad Asaad on 04-30-2024 CO2 [Moles/Vol] 26.6 mmol/L 21.0-31.0 [facility] Comment on above: Performed By: #### C MP #### [place] [address] [place] Chloride [Moles/volume] in S nusrat or PlasmaOrdered By: Imad Asaad on 04-30-2024 Chloride [Moles/Vol] 107 mmol/L 98-107 [facility] Comment on above: Performed By: #### C MP #### [address] Comprehensive Metabolic Pane seb 04-30-2024 Albumin [Mass/Vol] 4.3 g/dL Normal 3.5-5.7 [facility] Comment on above: Performed By: #### C MP #### [address] GFR/1.73 sq M.predicted MDRD (S/P/Bld) [Vol rate/Area] mL/min/{1.73_m2} Normal [facility] Comment on above: Performed By: #### C MP #### [address] Creatinine [Mass/volume] in Serum or PlasmaOrdered By: Imad Asaad on 04-30-2024 Creatinine [Mass/Vol] 0.68 mg/dL 0.60-1.20 [facility] Comment on above: Performed By: #### C MP #### [address] Glucose [Mass/volume] in Ser um or PlasmaOrdered By: Imad Asaad on 04-30-2024 Glucose [Mass/Vol] 92 mg/dL 70-100 [facility] Comment on above: ADA recommended refe rence rangeRandom Glucose Reference Range is dependent on time and content of last meal. Glucose of more than 200 mg/dL in a nonstressed, ambulatory subject supports the diagnosis of Diabetes Mellitus. Result Comment: [place] om Glucose Reference Range is dependent on time and content of last meal. Glucose of more than 200 mg/dL in a nonstressed, ambulatory subject supports the diagnosis of Diabetes Mellitus. ADA recommended reference range Performed By: #### C MP #### [address] No Panel InformationOrdered By: Imad Asaad on 04-30-2024 Estimated GFR (CKD-EPI) > 60.0 mL/Min [facility] Creatinine Clearance (Chem N/A [facility] Potassium [Moles/volume] in Serum or PlasmaOrdered By: Imad Asaad on 04-30-2024 Potassium [Moles/Vol] 4.2 mmol/L 3.5-5.1 [facility] Comment on above: Performed By: #### C MP #### [address] Protein [Mass/volume] in Ser um or PlasmaOrdered By: Imad Asaad on 04-30-2024 Protein [Mass/Vol] 6.9 g/dL 6.4-8.9 [facility] Comment on above: Performed By: #### C MP #### [facility] [address] Serum globulin measurement b y calculation (mass/volume)Ordered By: Imad Asaad on 04-30-2024 Globulin (S) [Mass/Vol] 2.6 g/dL F [facility] Comment on above: Performed By: #### C MP #### [address] Serum or plasma albumin/glob ulin mass ratioOrdered By: Imad Asaad on 04-30-2024 Albumin/Globulin [Mass ratio] 1.7 {ratio} [facility] Comment on above: Performed By: #### C MP #### [address] Serum or plasma anion gap de terminationOrdered By: Imad Asaad on 04-30-2024 Anion gap [Moles/Vol] 9.6 mmol/L 6.0-15.0 [facility] Comment on above: Performed By: #### C MP #### [address] Sodium [Moles/volume] in Ser um or PlasmaOrdered By: Imad Asaad on 04-30-2024 Sodium [Moles/Vol] 139 mmol/L 136-145 [facility] Comment on above: Performed By: #### C MP #### [address] Urea nitrogen [Mass/volume] in Serum or PlasmaOrdered By: Imad Asaad on 04-30-2024 Urea nitrogen [Mass/Vol] 14 mg/dL 7-25 [facility] Comment on above: Performed By: #### C MP #### [address] Glucose Tolerance 2 Houron 0 03-28-2024 Glucose Tolerance 2 Hour High [facility] Comment on above: Result Comment: FAST ING 112 H Col: 03/28/24726 1HR GLU 213 Col: 03/28/24826 2HR GLU 242 Col: 03/28/24926 NON-GESTATIONAL GESTATIONAL FASTING 70-100 < 92 1 HOUR < 200 < 180 2 HOUR < 140 < 153 PERFORMED BY: [place] [address] PATHOLOGIST LENDING ADVISOR LORRAINE DIETZ M.D. Performed By: #### G TT2 ####[facility] [id number] [place], [place] [id number] [facility] Serum or plasma glucose courtney urement 2 hours post 75 gm oral glucose (mass/volume)Ordered By: Tank Xavier on 03-28-2024 Glucose 2 Hr post 75 g glucose PO [Mass/Vol] See comment [facility] Comment on above: FASTING 112 H Col: 0 03/28/24726 1HR GLU 213 Col: 03/28/24826 2HR GLU 242 Col: 03/28/24926 A1C with Estimated Average G afsanehn 03-06-2024 Glucose [Mass/Vol] 131 mg/dL Normal [facility] Comment on above: Result Comment: PERF ORMED BY: [place] [address] PATHOLOGIST LENDING ADVISOR LORRAINE DIETZ M.D. Performed By: #### E LF #### [facility] , #### LIPID, A1C [facility] #### [facility] [address] [place], [place] [id number] [facility] Cholesterol [Mass/volume] in Serum or PlasmaOrdered By: Kamilah Ward on 03-06-2024 Cholesterol [Mass/Vol] 152 mg/dL 140-200 [facility] Comment on above: Chol less than 200 m g/dl low riskChol 201-239 mg/dl borderline riskChol 240 mg/dl and greater high risk Result Comment: Chol less than 200 mg/dl low risk Chol 201-239 mg/dl borderline risk Chol 240 mg/dl and greater high risk Performed By: #### E LF #### [facility] , #### LIPID, A1C [facility] eA #### [facility] [address] [place] [address] [place] Cholesterol in LDL Calc [Mas s/Vol]Ordered By: Kamilah Ward on 03-06-2024 Cholesterol in LDL [Mass/Vol] 78 mg/dL 0-100 [facility] Comment on above: LDL ATP III CLASSIFI CATIONLDL less than 100 mg/dL OptimalLDL 100-129 mg/dL Near or above optimalLDL 130-159 mg/dL Borderline highLDL 160-189 mg/dL HighLDL greater than 189 mg/dL Very high Cholesterol in VLDL Calc [Ma ss/Vol]Ordered By: Imad Tyronead on 03-06-2024 Cholesterol in VLDL [Mass/Vol] 20 mg/dL [facility] Enhanced Liver Fibrosis Test on 03-06-2024 Enhanced Liver Fibrosis Score 10.94 High <9.80 [facility] Comment on above: Result Comment: ELF( TM) Score Interpretation: Risk cut-offs to assess the likelihood of progression to cirrhosis and liver-related clinical events within 3.9 years following baseline ELF score (IQR: 14.0-22.4 months)*: Lower risk < 9.80 Mid risk 9.80 - 11.29 Higher risk >11.29 Note: The ELF(TM) Score is a unitless numerical value. *Alexy SA, Alexandro FRIAS, Duong T, et al. Selonsertib for patients with bridging fibrosis or compensated cirrhosis due to MANRIQUEZ: Results from randomized phase III STELLAR trials. J Hepatol. 2020 Feb;73(1):26-39. Performed at: - [facility] [id number] Bookmaker'S Clerk: Leyla Britt MD, Phone: [phone] PERFORMED BY: [place] [address] PATHOLOGIST LENDING ADVISOR LORRAINE DIETZ M.D. Performed By: #### E LF #### [facility] , #### LIPID, A1C [facility] eA #### [facility] [address] [place] [id number] [facility] Glucose mean value [Mass/vol ume] in Blood Estimated from glycated hemoglobinOrdered By: Kamilah Ward on 03-06-2024 Average glucose Estimated from glycated hemoglobin (Bld) [Mass/Vol] 131 mg/dL [facility] Hemoglobin A1c percentageOrd ered By: Kamilah Ward on 03-06-2024 HbA1c (Bld) [Mass fraction] 6.2 % High 4.3-5.6 [facility] Comment on above: Increased risk for d iabetes: 5.7 - 6.4diabetes: >6.4glycemic control for adults with diabetes: <7.0 Result Comment: Incr eased risk for diabetes: 5.7 - 6.4 diabetes: >6.4 glycemic control for adults with diabetes: <7.0 Performed By: #### E LF #### [facility] , #### LIPID, A1C [facility] eA #### [facility] [address] Lipid Panelon 03-06-2024 LDL Cholesterol,Calculated 78 mg/dL Normal 0-100 [facility] Comment on above: Result Comment: LDL ATP III CLASSIFICATION LDL less than 100 mg/dL Optimal LDL 100-129 mg/dL Near or above optimal LDL 130-159 mg/dL Borderline high LDL 160-189 mg/dL High LDL greater than 189 mg/dL Very high Performed By: #### E LF #### [facility] , #### LIPID, A1C [facility] eA #### [facility] [address] [place] [address] [place] Triglyceride w/Reflex 102 mg/dL Normal 0-149 [facility] Comment on above: Result Comment: TRIG ATP III CLASSIFICATION TRIG less than 150 mg/dL Normal TRIG 150-199 mg/dL Borderline high TRIG 200-500 mg/dL High TRIG greater than 500 mg/dL Very high Standard traceable to the Center for Disease Conrtrol and Prevention (CDC) test method. Performed By: #### E LF #### [facility] , #### LIPID, A1C [facility] eA #### [facility] [address] VLDL CHOLESTEROL 20 mg/dL Normal [facility] Comment on above: Performed By: #### E LF #### [facility] , #### LIPID, A1C [facility] eA #### [facility] [address] [place] [address] Serum or plasma high density lipoprotein (HDL) cholesterol measurementOrdered By: Imad Asaad on 03-06-2024 Cholesterol in HDL [Mass/Vol] 54 mg/dL 23-92 [facility] Comment on above: HDL CHOL ATP-III CLA SSIFICATION Cardiovascular RiskHDL > or equal to 60 mg/dL LOWHDL < 40 mg/dL HIGH Result Comment: HDL CHOL ATP-III CLASSIFICATION Cardiovascular Risk HDL > or equal to 60 mg/dL LOW HDL < 40 mg/dL HIGH Performed By: #### E LF #### [facility] , #### LIPID, A1C [facility] eA #### [facility] [address] [place] [address] Serum or plasma total choles terol/high density lipoprotein (HDL) cholesterol mass ratOrdered By: Imad Asaad on 03-06-2024 Cholesterol.total/Nanci sterol in HDL [Mass ratio] 2.8 {ratio} <5.0 [facility] Comment on above: Result Comment: PERF ORMED BY: [place] [address] PATHOLOGIST LENDING ADVISOR LORRAINE DIETZ M.D. Performed By: #### E LF #### [facility] , #### LIPID, A1C [facility] eA #### [facility] [address] [place] [address] Triglyceride [Mass/volume] i n Serum or PlasmaOrdered By: Imad Asaad on 03-06-2024 Triglyceride [Mass/Vol] 102 mg/dL 0-149 [facility] Comment on above: TRIG ATP III CLASSIF ICATIONTRIG less than 150 mg/dL NormalTRIG 150-199 mg/dL Borderline highTRIG 200-500 mg/dL High TRIG greater than 500 mg/dL Very highStandard traceable to the Center for Disease Conrtrol and Prevention (CDC) test method. Main [place] Intraoperative Recor don 07-30-2024 Main OR Intraoperative Record Main [place] Intraoperative Record IntraOp Document Type FTPM Summary Primary Physician: Hu Davis DO Finalized Date/Time: 03/03/24 14:57:24 Pt. Name: DEJAH DYKES Caro/Sex: 1970 Female Med Rec #: [id number] Physician: Hu Davis DO Financial #: [id number] Pt. Type: P Room/Bed: / Admit/Disch: 03/03/24 [...] Martino RN Role Performed Surgeon - Primary Front Office Director - Primary Scrub - Primary Time In 03/03/24 14:49:00 03/03/24 14:49:00 03/03/24 14:49:00 Time Out 03/03/24 14:58:00 03/03/24 14:58:00 03/03/24 14:58:00 Procedure TRANSFORAMINAL EPIDURAL TRANSFORAMINAL EPIDURAL TRANSFORAMINAL EPIDURAL STEROID STEROID STEROID INJECTIO(Bilateral) INJECTIO(Bilateral) INJECTIO(Bilateral) Comments Last Modified By: Mac DOHERTY, Melinda Watts RN, Melinda Keenan RN 03/03/24 14:57:20 03/03/24 14:57:20 03/03/24 14:57:20 Entry 4 Case Attendee Layton Harvey Role Performed Hydro Generation Manager Time In 03/03/24 14:49:00 Time Out 03/03/24 [...] Antibiotic No Time Out Melinda Watts RN, Nidhi Llanes RN, Ryan Lamar DO, Bradford A., Shaniqua [...] and tissue Entry 1 Skin Integrity Intact, Dawson, Warm, & Skin Abnormality No Dry Outcomes [...] Safety Strap (more content not included)... Normal [facility] Main [place] Preoperative Recordo n 03-03-2024 Main [place] Preoperative Record Main [place] Preoperative Record Holding Area Document Type FTPM Summary Primary Physician: Hu Davis DO Finalized Date/Time: 03/03/24 13:55:55 Pt. Name: DEJAH DYKES/Sex: 1970 Female Med Rec #: [id number] Physician: Hu Davis DO Financial #: [id number] Pt. Type: P Room/Bed: / Admit/Disch: 03/03/24 [...] 03/03/24 13:55 Zofia Reyes RN 03/03/24 13:55 [facility] Consent for Treatmenton 01-04 Consent for Treatment [id number]#1.00TIFF [facility] Consultation Noteon 01-29-20 24 Consultation Note Patient: DEJAH DYKES Age: 53 [...] symptoms. She has taken a multitude of tuet-oqc-adomlxs medication without improvement. The most that she [...] Insomnia, # 30 tab(s), Refills(s) 1, Pharmacy: [facility]/pharmacy #[id number], 161, cm, 09/08/19 14:29:00 EST, Height/Length Measured, 110.5, kg, 09/08/19 14:29:00 EST, Weight Measured Estrace 0.1 mg/g Cream: See Instructions, 42.5 gm, Refill(s) 5, insert 1gm vaginally & apply pea sized amount around the urethra nightly x 3 weeks, then 3x per week thereafter, [facility]/pharmacy #[id number], 162.5, cm, 04/24/22 15:43:00 EDT, Height/Length Dosing, 105, kg, 03/28/22 9:0... Ziac 5 mg-6.25 mg oral tablet: 1 tab(s), Oral, Daily, 90 tab(s), Refill(s) 1, [facility]/pharmacy #[id number] minocycline 100 mg Cap: 100 mg, Oral, Daily, # 100 cap(s), Refills(s) 1, Pharmacy: [facility]/pharmacy #[id number] Documented Medications Documented Singulair: 10 mg, Oral, qPM, Refills(s) 0, Allergy symptoms levothyroxine 50 mcg (0.05 mg) Tab: Refills(s) 0 metformin: 500 mg, Oral, QID, Refills(s) 0 potassium chloride 10 mEq ER Tab: 10 mEq = 1 tab(s), Oral, BID, Prophylaxis Problem list: All Problems Lumbar disc herniation / SNOMED CT 876240674 / Confirmed L4-5 fusion Allergic rhinitis, seasonal / SNOMED CT 999779713 / Confirmed H/O: HTN (hypertension) / SNOMED CT 467377533 / Confirmed Depression / SNOMED CT 161522344 / Confirmed Fatty liver / SNOMED CT 936372160 / Confirmed Acne rosacea / SNOMED CT 7239504442 / Confirmed Osteochondritis dissecans / 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 / Confirmed Class 3 severe obesity with body mass index (BMI) of 40.0 to 44.9 in adult / SNOMED CT 7004618034 / Confirmed Non-tobacco user / SNOMED CT 639271510 / Confirmed Influenza vaccination up to date / SNOMED CT 690908558 / Confirmed Urine frequency / SNOMED CT 147295130 / Confirmed Kidney stones / SNOMED CT 152594322 / Confirmed Frequent UTI / SNOMED CT 748345043 / Confirmed Resolved: DVT / SNOMED CT 799300873 Resolved: Kidney stones / SNOMED CT 632NA204-S384-9632-[id number] Objective Vital Signs 01/29/2024 8:14 EDT Peripheral Pulse Rate 66 bpm Respiratory Rate 14 br/min Systolic Blood Pressure 128 mmHg Diastolic Blood Pressure 73 mmHg Mean Arterial Pressure, Cuff 91 mmHg General: Alert and oriented, No acute distress. Eye: Normal conjunctiva. HENT: Normocephalic, Normal hearing. Cardiovascular: No edema. Musculoskeletal Normal range of motion. Normal strength. 5/5 lower extremity strength Integumentary: Warm, Dry, Dawson. Neurologic: Alert, Oriented. Psychiatric: Cooperative, Appropriate mood [...] are maintained. (more content not included)... Normal [facility] Comment on above: Result Comment: Elec tronically Signed By: Yesica RENEE, Tamiko\.br\Date and Time Signed: 01/29/24 08:33 EDT Office/Clinic Note-Physician on 01-29-2024 Office/Clinic Note-Physician [id number]#1.00TIFF Normal [facility] Office/Clinic Note-Physician [id number]#1.00TIFF Normal [facility] Patient Correspondenceon Patient Correspondence [id number]#1.00TIFF Normal [facility] Patient Correspondence [id number]#1.00TIFF Normal [facility] Patient History Officeon Patient History Office [id number]#1.00TIFF Normal [facility] SURGICAL PATHOLOGY REFERENCE LAB CONSULTon 12-16-2023 CASE REPORT Normal [facility] Comment on above: Order Comment: Speci men Type: FORMALIN-FIXED PARAFFIN-EMBEDDED TISSUE SPECIMEN Ordering Facility: [facility] Address: [address] [place] [id number] Result Comment: Surg ica Pathology Report Case: [id number] Authorizing Provider: Carlitos Ramesh MD Collected: 12/16/2023 02:45 PM Ordering Location: [facility] Received: 12/16/2023 02:44 PM [facility] Pathologist: Gely Wells MD Specimen: Slide(s), 11 SLIDES [id number] Performed By: #### L [id number] #### [facility] CLIA [id number] [address] [place] [address] [place] CLINICAL HISTORY CONSULT REQUESTED Normal C [facility] Comment on above: Order Comment: Speci men Type: FORMALIN-FIXED PARAFFIN-EMBEDDED TISSUE SPECIMEN Ordering Facility: [facility] Address: [address] [place], [place] [phone] Performed By: #### L [id number] #### [facility] CLIA [id number] [address] [place] [address] DIAGNOSIS COMMENT Normal [facility] Comment on above: Order Comment: Speci men Type: FORMALIN-FIXED PARAFFIN-EMBEDDED TISSUE SPECIMEN Ordering Facility: [facility] Address: [address] [place], [place] [phone] Result Comment: Than k you for allowing [...] do not hesitate to contact us at [phone] with questions or if additional follow-up information becomes available. This case was reviewed in conjunction with the GI pathology fellow, Luis Mccauley M.D. Performed By: #### L [id number] #### [facility] CLIA [id number] [address] [place] [address] FINAL DIAGNOSIS Normal [facility] Comment on above: Order Comment: Speci men Type: FORMALIN-FIXED PARAFFIN-EMBEDDED TISSUE SPECIMEN Ordering Facility: [facility] Address: [address] [place], [place] [phone] Result Comment: Live r, biopsy (A1, special stains): - Steatohepatitis with patchy bridging fibrosis. - See comment. Performed By: #### L [id number] #### [facility] CLIA [id number] [address] [place] [address] [place] FINAL PERFORMING LAB Normal [facility] Comment on above: Order Comment: Speci men Type: FORMALIN-FIXED PARAFFIN-EMBEDDED TISSUE SPECIMEN Ordering Facility: [facility] Address: [address] [place] [address] Result Comment: Diag nostic interpretation performed at [facility], [address] [place] [address] CLIA# [id number] Auto Engine Mechanic: Krunal Ferguson M.D. Performed By: #### L [id number] #### [facility] CLIA [id number] [address] [place] [address] [place] Activated partial thrombopla stin time (aPTT) in platelet poor plasma by coagulation aOrdered By: Forest Giordano on 12-06-2023 aPTT Coag (PPP) [Time] 28.6 s 25.1-36.5 [facility] Comment on above: A hematocrit value g reater than 55% may lead to inaccurate results in coagulation testing. Patients having hematocrit values >55% require a special collection tube for coagulation studies. Please contact the laboratory at [phone] guided biopsyon CT guided biopsy [facility] [place] [place] [address] CT Scan Report Signed Patient: Dejah Dykes MR#: [id number] : 1970 Acct:[id number] Age/Sex: 53 / F ADM Date: 12/06/23 Loc: CT Room: Type: [facility] Attending Dr: Forest Giordano APRN Copies to: [...] biopsy. Impression dictated by: Brian Walton Jr., DGorgeOGorge12/06/2023 1:59 PM Dictation Location: [place] [address] Transcribed By: [facility] 12/06/23 1359 Dictated By: Brian Walton Jr, DO 12/06/23 1355 Signed By: 12/06/23 1359 Normal [facility] Coagulation Profileon 2023 aPTT Coag (Bld) [Time] 28.6 s Normal 25.1-36.5 [facility] Comment on above: Order Comment: STAT FOR BX Result Comment: A he matocrit value greater than 55% may lead to inaccurate results in coagulation testing. Patients having hematocrit values >55% require a special collection tube for coagulation studies. Please contact the laboratory at [phone] for redraw instructions. PERFORMED BY: [address] [address] PATHOLOGIST LENDING ADVISOR LORRAINE DIETZ M.D. Performed By: #### P P, PLT #### [address] [facility] INR in Platelet poor plasma by Coagulation assayOrdered By: Forest Giordano on 05-03-2024 INR Coag (PPP) [Relative time] 1.0 {INR} Normal [facility] Comment on above: INR Therapeutic Rang e [...] Performed By: #### P P, PLT #### [facility] [address] [place] [address] Seb 12-06-2023 L Specimen: [id number] Received: 12/06/23 Status: NAKUL Moran Num: [id number] Spec Type: Surgical Subm Dr: Brian Walton Jr, Tissues: A Liver - Needle Biopsy (LFT LIVER, RANDOM BX) Procedures: Trichrome, Reticulum I, Iron, HE/3, Gross/Micro L5, CK 7, PAS - Hemat, PAS - Diastase Age/ Patient Sex Location Account Attending Physician Dejah Dykes 53/F CT [id number] Forest Giordano APRN SPEC NUM: [id number] RECD: 12/06/23 STATUS: [facility] NUM: [id number] LEONEL: 12/06/[address]: Brian Walton Jr, DO ENTERED: 12/06/[address] [facility] DR: Forest Giordano APRN SPEC TYPE: Surgical DEPT: S ORDERED: Trichrome, Reticulum I, Iron, HE/3, Gross/Micro L5, CK 7, PAS - Hemat, PAS - Diastase ORDERED: Trichrome, Reticulum I, Iron, HE/3, Gross/Micro L5, CK 7, PAS - Hemat, PAS - Diastase Supplemental Report Addendum 1 Entered: 12/25/231790 Supplemental for findings of consultation report from [facility]: FINAL DIAGNOSIS: -Steatohepatitis with patchy bridging fibrosis [...] the needle core biopsy of note Specimen: [id number] Received: 12/06/23 Status: NAKUL Moran Num: [id number] Spec Type: Surgical Subm Dr: Brian Walton Jr, DO Tissues: A Liver - Needle Biopsy (LFT LIVER, RANDOM BX) Procedures: Trichrome, Reticulum I, Iron, HE/3, Gross/Micro L5, CK 7, PAS - Hemat, PAS - Diastase Patient: Dejah Dykes [id number] (Continued) Specimen: [id number] Received: 12/06/23 (Continued) Supplemental Report (Continued) Signed (signature on file) Bonilla Ramesh MD 12/12/23 1143 Specimen: [id number] Received: 12/06/23 Status: NAKUL Luisa Num: [id number] Spec Type: Surgical Subm Dr: Brian Walton Jr, DO Tissues: A Liver - Needle Biopsy (LFT LIVER, RANDOM BX) Procedures: Trichrome, Reticulum I, Iron, HE/3, Gross/Micro L5, CK 7, PAS - Hemat, PAS - Diastase Patient: Dejah Dykes [id number] (Continued) Specimen: [id number] Received: 12/06/23 (Continued) Supplemental Report (Continued) Addendum Signed (signature on file) Chin-Gio Ramesh MD 12/25/23 0950 Pathological Diagnosis Random [...] s (more content not included)... Normal [facility] Platelets [#/volume] in Bloo d by Automated countOrdered By: Forest Giordano on 12-06-2023 Platelets (Bld) [#/Vol] 211 10*3/uL Normal 150-450 [facility] Comment on above: Order Comment: STAT FOR BX Result Comment: PERF ORMED BY: [place] [address] PATHOLOGIST LENDING ADVISOR LORRAINE DIETZ M.D. Performed By: #### P P, PLT #### [place] [id number] [facility] Prothrombin time (PT)Ordered By: Forest Giordano on 12-06-2023 PT Coag (PPP) [Time] 11.3 s Normal 9.0-12.9 [facility] Comment on above: A hematocrit value g reater than 55% may lead to inaccurate results in coagulation testing. Patients having hematocrit values >55% require a special collection tube for coagulation studies. Please contact the laboratory at [phone] for redraw instructions. Order Comment: STAT FOR BX Result Comment: A he matocrit value greater than 55% may lead to inaccurate results in coagulation testing. Patients having hematocrit values >55% require a special collection tube for coagulation studies. Please contact the laboratory at [phone] for redraw instructions. Performed By: #### P P, PLT #### [place] [id number] 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 Registration to the weight loss program will also be done online. [email or web address] Alternatively, to schedule appointment, please call Order Specific Question: Have you discussed weight management with your patient? Answer: Yes Order Specific Question: Are you requesting assessment for possible Bariatric Surgery for your patient? Answer: Yes Order Specific Question: Does consulting provider have [facility] Epic access? Answer: Yes Follow up PRN Signed: Alfredo Cruz MD Endocrinology and Metabolism [facility] Alfredo Cruz MD 11/11/2023 9:20 AM Signed BARIATRIC REFERRAL The first step for considering bariatric (weight loss) surgery at [facility] is to watch the online seminar on the following website. Registration to the weight loss program will also be done online. [email or web address] Links: [email or web address]=[email or web address]*1ly 7- el6*_ga*OcFsWyS7BADaSb0dEb I5Qhy3GLx9*_ga_HWJ092SPKP* CEkePAC1GwL4CR5cEzVkAFlgM (more content not included)... Normal [facility] Consent for Procedure/Surger yon 10-30-2023 Consent for Procedure/Surgery [id number]#1.00TIFF Normal [facility] Consent for Treatmenton 10-04 Consent for Treatment [id number]#1.00TIFF Normal [facility] Discharge Instructionson Discharge Instructions [id number]#1.00TIFF Normal [facility] IntraOperative Documentson 0 10-30-2023 IntraOperative Documents [id number]#1.00TIFF Normal [facility] IntraOperative Documents [id number]#1.00TIFF Normal [facility] Main OR Intraoperative Recor don 10-30-2023 Main OR Intraoperative Record IntraOp Document Type FTPM Summary Primary Physician: Hu Davis DO Finalized Date/Time: 10/30/23 11:28:27 Pt. Name: DEJAH DYKES/Sex: 1970 Female Med Rec #: [id number] Physician: Hu Davis DO Financial #: [id number] Pt. Type: P Room/Bed: / Admit/Disch: 10/30/23 09:52:23 - Institution: Case Times FTPM Entry 1 Patient Times In Room 10/30/23 11:17:00 Out Room 10/30/23 11:29:00 Procedure Times Start 10/30/23 11:20:00 Stop 10/30/23 11:28:00 Anesthesia Times Last Modified By: Mac DOHERTY, Melinda Little 10/30/23 11:28:22 Case Attendance FTPM Entry 1 Entry 2 Entry 3 Case Attendee Hu Davis DO, RN, Melinda Adames RN, [place] Luda Role Performed Surgeon - Primary Front Office Director - Primary Scrub - Primary Time In 10/30/23 11:17:00 10/30/23 11:17:00 10/30/23 11:17:00 Time Out 10/30/23 11:29:00 10/30/23 11:29:00 10/30/23 11:29:00 Procedure TRANSFORAMINAL EPIDURAL TRANSFORAMINAL EPIDURAL TRANSFORAMINAL EPIDURAL STEROID INJECTIO(Right) STEROID INJECTIO(Right) STEROID INJECTIO(Right) Comments Last Modified By: Melinda Watts RN, RN, Melinda Keenan RN 10/30/23 11:28:23 10/30/23 11:28:23 10/30/23 11:28:23 Entry 4 Case Attendee Dean Hayden Role Performed Hydro Generation Manager Time In 10/30/23 11:17:00 Time Out 10/30/23 [...] Given Participants Zacarias DOHERTY, Ryan Plascencia DO, Hu Edwards, Dean Hayden Time Out Complete 10/30/23 11:17:00 [...] and tissue Entry 1 Skin Integrity Intact, Dawson, Warm, and Skin Abnormality No Dry Outcomes [...] Points C (more content not included)... Normal [facility] Main OR Preoperative Recordo n 10-30-2023 Main OR Preoperative Record Holding Area Document Type FTPM Summary Primary Physician: Hu Davis DO Finalized Date/Time: 10/30/23 10:19:44 Pt. Name: DEJAH DYKES/Sex: 1970 Female Med Rec #: [id number] Physician: Hu Davis DO Financial #: [id number] Pt. Type: P Room/Bed: / Admit/Disch: 10/30/23 [...] By: Krystina Madden RN 10/30/23 10:19 Normal [facility] Insurance Correspondence Off ice10-29-2023 Insurance Correspondence Office [id number]#2.00TIFF Normal [facility] Patient Correspondenceon Patient Correspondence [id number]#1.00TIFF [facility] XR knee RT 3V - NOT FOR ER U Raoul 10-24-2023 XR knee RT 3V - NOT FOR ER USE [facility] Main [place] [id number] XRay Report Signed Patient: Dejah Dykes MR#: [id number] : 1970 Acct:[id number] Age/Sex: 53 / F ADM Date: 10/24/23 Loc: ICXD Room: Type: [facility] Attending Dr: Jorge Alberto Rowe MD Copies [...] Ranjeet Zheng M.D.10/24/2023 5:06 PM Dictation Location: [place] [address] Transcribed By: [facility] 10/24/231705 Dictated By: Ranjeet Zheng DO 10/24/231704 Signed By: 10/24/23 170 Normal [facility] Insurance Correspondence Off iceon 10-18-2023 Insurance Correspondence Office [id number]#1.00TIFF Normal [facility] Consent for Treatmenton 10-03 Consent for Treatment [id number]#1.00TIFF Normal [facility] Consultation Noteon 10-17-19 Consultation Note Patient [...] for this as well as has a automation consultant and is working on possibility of autoimmune [...] daily, we also encouraged follow-up with her automation consultant to discuss possibility of any autoimmune reasons [...] questions or concerns that arise. [facility] Comment on above: Result Comment: Elec tronically Signed By: Hu Davis DO\.br\Date and Time Signed: 10/17/23 09:22 EDT HIPAA Forms Officeon 024 HIPAA Forms Office [id number]#1.00TIFF [facility] Legal Correspondence Officeo n 10-17-2023 Legal Correspondence Office [id number]#1.00TIFF [facility] Legal Correspondence Office [id number]#1.00TIFF [facility] Office/Clinic Note-Physician on 10-17-2023 Office/Clinic Note-Physician [id number]#1.00TIFF [facility] Patient Correspondenceon Patient Correspondence [id number]#1.00TIFF [facility] Patient Correspondence [id number]#1.00TIFF Normal [facility] Patient Correspondence [id number]#1.00TIFF Normal [facility] Patient Correspondence [id number]#1.00TIFF Normal [facility] Patient Correspondence [id number]#1.00TIFF Normal [facility] Patient History Officeon Patient History Office [id number]#1.00TIFF Normal [facility] PT - Orderson 10-14-2023 PT - Orders [id number]#1.00TIFF Normal [facility] Reportability Response - [facility] Healthon 10-01-2023 Reportability Response - Public Health {[id number]-a [id number]-[id number]-c8}XML Normal [facility] Consent for Treatmenton 09-06 Consent for Treatment [id number]#1.00TIFF Normal [facility] Discharge Instructionson Discharge Instructions [id number]#1.00TIFF Normal [facility] ED Clinical Summaryon 2023 ED Clinical Summary (Inserted Image. Carrie ble to display) [place] [id number] ED Clinical Summary Person Information [facility]: [facility] 53 [facility] : 1970 Sex: Female Language: Arabic PCP: eLnora SANTOS PA-C Marital Status: Visit Id: Visit [...] 09/28/2023 15:53:43 09/28/2023 15:53:43 09/28/2023 15:53:43 ADDRESS: [facility] [place] [id number] PHYS DOC NOTES: MEDICAL INFORMATION: Prescriptions Given: [...] With: Address: When: TOM RENEE, Lenora Little, [facility] [address] [place] [address] In 3 days 10/01/2023 DIAGNOSIS: 1:COVID Normal [facility] ED Note-Physicianon 09-28-19 ED Note-Physician Basic [...] the nursing notes. Previous records reviewed: Reviewed emergency room registered nurse note 09/12/2023. Patient seen for hypertension. Noted [...] RENEE, RADHA Gaxiola In 3 days 10/01/2023 [place] [id number] Additional Instructions: Additional Instructions: Call the office [...] made to ensure accuracy, however, inadvertently computerized prop sawyer management be present. Problem List/Past Medical History Ongoing Acne rosacea Class 3 severe obesity with body mass index (BMI) of 40.0 to 44.9 in adult Frequent UTI Influenza vaccination up to date Kidney stones Non-tobacco user Osteochondritis dissecans Urine frequency Historical DVT Kidn (more content not included)... Normal [facility] Comment on above: Result Comment: Elec tronically Signed By: Lara Reyes PA-C\.br\Date and Time Signed: 09/28/23 15:38 EST\.br\Electronically Co-Signed By: Cody Young M.D.\.br\Date and Time Co-Signed: 09/28/23 19:52 EST ED Patient Summaryon 024 ED Patient Summary (Inserted Image. Carrie ble to display) [address] [address] Patient Discharge Instructions Person Information Name: DEJAH DYKES Age: 53 Years Arrival Date: 09/28/2023 14:44:25 Discharge Diagnosis: 1:COVID Primary Care Physician: Lenora SANTOS PA-C Provider Information Primary Provider: Cody Young M.D. Advanced Nurse Unit Manager:Lara Reyes PA-C The exam and treatment you received in the Emergency Department were for an urgent problem and are not intended as complete care. It is important that you follow up with a doctor, nurse practitioner, or physician?s social research assistant for ongoing care. If your symptoms [...] Instructions: With: Address: When: Lenora SANTOS PA-C, [address] [address] In 3 days 10/01/2023 In the event that this physician does not participate in your insurance network, please consult with your insurance company to find a nearby participating provider. Patient Education Materials: COVID-19 A MESSAGE TO ALL PATIENTS REGARDING OPIOIDS PRESCRIPTION OPIOIDS: WHAT YOU NEED TO KNOW Prescription opioids can be used to help relieve ewmbtxqk-nt-zhhiqf pain and are often prescribed following a [...] be struggling with addiction, tell your health urgent care and ask for guidance or call [facility]?S [employer] Helpline at [phone]. e Source: Department of Health an (more content not included)... Normal [facility] Influenza A&B Agon Influenzae A Ag Negative Normal Negative [facility] Comment on above: Performed By: #### 2 [id number], [id number] ####[facility] [address] [place] [address] Influenzae B Ag Negative Normal Negative [facility] Comment on above: Result Comment: Test sensitivity and specificity vary for age group, specimen type, antigen types, and prevalence of disease. Test results must be evaluated in conjunction with other clinical data available to the physician. Individuals who received nasally administered Influenza A vaccine may have positive test results up to 3 days after vaccination. Performed By: #### 2 [id number], [id number] ####[facility] [address] [place] [address] MICRO OTHER TESTSOrdered By: Rajni Llanes on 09-28-2023 Influenzae A Ag Negative (09/28/23 3:07 PM) Normal Negative [facility] Man Sero Influenzae B Ag Negative 1 (09/28/23 3:07 PM) Normal Negative [facility] Man Sero Comment on above: Interpretive Data: [...] NEG Ctl Pass (09/28/23 3:07 PM) Normal [facility] Man Sero Rapid COV Int POS Ctl Pass (09/28/23 3:07 PM) Normal [facility] Man Sero SARS-CoV+SARS-CoV-2 (COVID-19) Ag IA.rapid Ql (Resp) Detected 2 *ABN* (09/28/23 3:07 PM) Invalid Interpretation Code Not Detected [facility] Man Sero Comment on above: Interpretive Data: T willian goviralitor System for Rapid Detection of SARS-CoV-2 is [...] terminated or revoked sooner. Rapid COVID Antigen ([facility])on 09-28-2023 Rapid COV Int NEG Ctl Pass Normal Fis her [facility] Comment on above: Performed By: #### 2 [id number], [id number] ####[place] [facility] [address] [place] [address] Rapid COV Int POS Ctl Pass Normal Fis [facility] Comment on above: Performed By: #### 2 [id number], [id number] ####[facility] [address] [place] [address] SARS-CoV+SARS-CoV-2 (COVID-19) Ag IA.rapid Ql (Resp) Detected Abnormal Not Detected [facility] Comment on above: Result Comment: The IPNetVoice System for Rapid Detection of SARS-CoV-2 is [...] or revoked sooner. Performed By: #### 2 [id number], [id number] ####[facility] [address] [place] [id number] Reportability Response - Pub lic Healthon 09-28-2023 Reportability Response - Public Health {[id number]-fe-8 4-ao-80-32-56-5i-ae-f6}XML Normal [facility] REYNALDO Reflex Testingon 024 REYNALDO with Reflex Positive Critically abnormal Negative [facility] Comment on above: Performed By: #### F ER, HEPATIC, FE and TIBC, PT, LIPID, CBC ####[facility]#### HBCAB, HBSAG, ALPHA PHEN, REYNALDO RFX ADD ON, HBSAB, CERULOP, SMAB, HCV RX PCR ####[facility] , Anti-Centromere B Antibodies <0.2 Normal 0.0-0.9 [facility] Comment on above: Performed By: #### F ER, HEPATIC, FE and TIBC, PT, LIPID, CBC ####[facility]#### HBCAB, HBSAG, ALPHA PHEN, REYNALDO RFX ADD ON, HBSAB, CERULOP, SMAB, HCV RX PCR ####[facility] , Anti-dsDNA(DBL)Ab 1 Normal 0-9 [facility] Comment on above: Result Comment: Nega tive <5 Equivocal 5 - 9 Positive >9 Performed By: #### F ER, HEPATIC, FE and TIBC, PT, LIPID, CBC ####[facility]#### HBCAB, HBSAG, ALPHA PHEN, REYNALDO RFX ADD ON, HBSAB, CERULOP, SMAB, HCV RX PCR ####[facility] , Anti-COMPUTER SCIENCE INSTRUCTOR <0.2 Normal 0.0-0.9 [facility] Comment on above: Performed By: #### F ER, HEPATIC, FE and TIBC, PT, LIPID, CBC ####[address]#### HBCAB, HBSAG, ALPHA PHEN, REYNALDO RFX ADD ON, HBSAB, CERULOP, SMAB, HCV RX PCR ####[facility] , Anti-Llanes Antibodies <0.2 Normal 0.0-0.9 [facility] Comment on above: Performed By: #### F ER, HEPATIC, FE and TIBC, PT, LIPID, CBC ####[address]#### HBCAB, HBSAG, ALPHA PHEN, REYNALDO RFX ADD ON, HBSAB, CERULOP, SMAB, HCV RX PCR ####[facility] , Chromatin Antibody <0.2 Normal 0.0-0.9 [facility] Comment on above: Performed By: #### F ER, HEPATIC, FE and TIBC, PT, LIPID, CBC ####[address]#### HBCAB, HBSAG, ALPHA PHEN, REYNALDO RFX ADD ON, HBSAB, CERULOP, SMAB, HCV RX PCR ####[facility] , SHEY-1 Antibody <0.2 Normal 0.0-0.9 [facility] Comment on above: Performed By: #### F ER, HEPATIC, FE and TIBC, PT, LIPID, CBC ####[address]#### HBCAB, HBSAG, ALPHA PHEN, REYNALDO RFX ADD ON, HBSAB, CERULOP, SMAB, HCV RX PCR ####[facility] , Scleroderma 70 Antibodies >8.0 High 0.0-0.9 [facility] Comment on above: Performed By: #### F ER, HEPATIC, FE and TIBC, PT, LIPID, CBC ####[facility] [place] [address] [facility]#### HBCAB, HBSAG, ALPHA PHEN, REYNALDO RFX ADD ON, HBSAB, CERULOP, SMAB, HCV RX PCR ####[facility] , See Below: Normal . [facility] Comment on above: Result [...] Sm (anti-Llanes) SLE 15 - 30% --------- COMPUTER SCIENCE INSTRUCTOR Mixed Connective Tissue Disease 95% (U1 nRNP, SLE 30 - 50% anti-ribonucleoprotein) Polymyositis and/or Dermatomyositis 20% --------- Scl-70 (antiDNA Scleroderma (diffuse) 20 - 35% topoisomerase) Crest 13% --------- Shey-1 Polymyositis and/or Dermatomyositis 20 - 40% --------- Centromere B Scleroderma - Crest variant 80% Performed at: - [facility] [id number] Bookmaker'S Clerk: Dhruv Schreiber PhD, Phone: [phone] Performed By: #### F ER, HEPATIC, FE and TIBC, PT, LIPID, CBC ####[facility] [address] [place] [address] [facility]#### HBCAB, HBSAG, ALPHA PHEN, REYNALDO RFX ADD ON, HBSAB, CERULOP, SMAB, HCV RX PCR ####[facility] , SS-A/Ro Sjogrens Antibody <0.2 Normal 0.0-0.9 [facility] Comment on above: Performed By: #### F ER, HEPATIC, FE and TIBC, PT, LIPID, CBC ####[place] [address] [address]#### HBCAB, HBSAG, ALPHA PHEN, REYNALDO RFX ADD ON, HBSAB, CERULOP, SMAB, HCV RX PCR ####[facility] , SS-B/La Sjogrens Antibody 0.5 Normal 0.0-0.9 [facility] Comment on above: Performed By: #### F ER, HEPATIC, FE and TIBC, PT, LIPID, CBC ####[place] [address] [address]#### HBCAB, HBSAG, ALPHA PHEN, REYNALDO RFX ADD ON, HBSAB, CERULOP, SMAB, HCV RX PCR ####[facility] , Actin smooth muscle IgG Ab [ Units/volume] in SerumOrdered By: Forest Giordano on 09-25-2023 Actin smooth muscle IgG Qn (S) 129 Units 0-19 [facility] Comment on above: Negative 0 - 19 Weak positive 20 - 30 Moderate to strong positive >30 Actin Antibodies are found in 52-85% of patients with autoimmune hepatitis or chronic active hepatitis and in 22% of patients with primary biliary cirrhosis.Performed at: [facility] LabBen[place] [id number] Director: Dhruv Schreiber PhD, Phone: [phone] Alanine aminotransferase [En zymatic activity/volume] in Serum or PlasmaOrdered By: Forest Giordano on 09-25-2023 ALT [Catalytic activity/Vol] 51 U/L Normal 7-52 [facility] Comment on above: Performed By: #### F ER, HEPATIC, FE and TIBC, PT, LIPID, CBC ####[facility] [place] [address] [place]#### HBCAB, HBSAG, ALPHA PHEN, REYNALDO RFX ADD ON, HBSAB, CERULOP, SMAB, HCV RX PCR ####[facility] , Albumin [Mass/volume] in Ser um or Plasma by Bromocresol green (BCG) dye binding methoOrdered By: Forest Giordano on 09-25-2023 Albumin BCG dye [Mass/Vol] 4.2 g/dL 3.5-5.7 [facility] Alkaline phosphatase [Enzyma tic activity/volume] in Serum or PlasmaOrdered By: Forest Giordano on 09-25-2023 ALP [Catalytic activity/Vol] 90 U/L Normal 34-104 [facility] Comment on above: Performed By: #### F ER, HEPATIC, FE and TIBC, PT, LIPID, CBC ####[facility]#### HBCAB, HBSAG, ALPHA PHEN, REYNALDO RFX ADD ON, HBSAB, CERULOP, SMAB, HCV RX PCR ####[facility] , Zwmfu-5-Ymdcyciyxmt Phenotyp manuel 09-25-2023 Alpha 1 Anti-Trypsin 155 mg/dL Normal 101-187 [facility] Comment on above: Performed By: #### F ER, HEPATIC, FE and TIBC, PT, LIPID, CBC ####[facility] [place] [address] [place]#### HBCAB, HBSAG, ALPHA PHEN, REYNALDO RFX ADD ON, HBSAB, CERULOP, SMAB, HCV RX PCR ####[facility] , Phenotype (P1) MM Normal . [facility] Comment on above: Result [...] used to confirm phenotype. Performed at: - [address] [id number] Bookmaker'S Clerk: Dhruv Schreiber PhD, Phone: [phone] Performed at: - [address] [id number] Bookmaker'S Clerk: Leyla Britt MD, Phone: [phone] Performed By: #### F ER, HEPATIC, FE and TIBC, PT, LIPID, CBC ####[place] [id number] [address]#### HBCAB, HBSAG, ALPHA PHEN, REYNALDO RFX ADD ON, HBSAB, CERULOP, SMAB, HCV RX PCR ####[facility] , Aspartate aminotransferase [ Enzymatic activity/volume] in Serum or PlasmaOrdered By: Forest Giordano on 09-25-2023 AST [Catalytic activity/Vol] 44 U/L High 13-39 [facility] Comment on above: Performed By: #### F ER, HEPATIC, FE and TIBC, PT, LIPID, CBC ####[address]#### HBCAB, HBSAG, ALPHA PHEN, REYNALDO RFX ADD ON, HBSAB, CERULOP, SMAB, HCV RX PCR ####[facility] , Automated basophil %Ordered By: Forest Giordano on 09-25-2023 Basophils/100 WBC (Bld) 0.8 % Normal . [facility] Comment on above: Performed By: #### F ER, HEPATIC, FE and TIBC, PT, LIPID, CBC ####[address]#### HBCAB, HBSAG, ALPHA PHEN, REYNALDO RFX ADD ON, HBSAB, CERULOP, SMAB, HCV RX PCR ####[facility] , Automated basophil countOrde red By: Forest Giordano on 09-25-2023 Basophils (Bld) [#/Vol] 0.1 10*3/uL Normal 0.0-0.2 [facility] Comment on above: Result Comment: PERF ORMED BY: [facility] [address] [place] [address] PATHOLOGIST LENDING ADVISOR LORRAINE DIETZ M.D. Performed By: #### F ER, HEPATIC, FE and TIBC, PT, LIPID, CBC ####[address]#### HBCAB, HBSAG, ALPHA PHEN, REYNALDO RFX ADD ON, HBSAB, CERULOP, SMAB, HCV RX PCR ####[facility] , Automated blood monocyte cou ntOrdered By: Forest Giordano on 09-25-2023 Monocytes (Bld) [#/Vol] 0.5 10*3/uL Normal 0.0-0.8 [facility] Comment on above: Performed By: #### F ER, HEPATIC, FE and TIBC, PT, LIPID, CBC ####[address]#### HBCAB, HBSAG, ALPHA PHEN, REYNALDO RFX ADD ON, HBSAB, CERULOP, SMAB, HCV RX PCR ####[facility] , Automated eosinophil %Ordere d By: Forest Giordano on 09-25-2023 Eosinophils/100 WBC (Bld) 2.1 % Normal . [facility] Comment on above: Performed By: #### F ER, HEPATIC, FE and TIBC, PT, LIPID, CBC ####[address]#### HBCAB, HBSAG, ALPHA PHEN, REYNALDO RFX ADD ON, HBSAB, CERULOP, SMAB, HCV RX PCR ####[facility] , Automated eosinophil countOr dered By: Forest Giordano on 09-25-2023 Eosinophils (Bld) [#/Vol] 0.2 10*3/uL Normal 0.0-0.45 [facility] Comment on above: Performed By: #### F ER, HEPATIC, FE and TIBC, PT, LIPID, CBC ####[place] [address]#### HBCAB, HBSAG, ALPHA PHEN, REYNALDO RFX ADD ON, HBSAB, CERULOP, SMAB, HCV RX PCR ####[facility] , Automated monocyte %Ordered By: Forest Giordano on 09-25-2023 Monocytes/100 WBC (Bld) 6.8 % Normal . [facility] Comment on above: Performed By: #### F ER, HEPATIC, FE and TIBC, PT, LIPID, CBC ####[address]#### HBCAB, HBSAG, ALPHA PHEN, REYNALDO RFX ADD ON, HBSAB, CERULOP, SMAB, HCV RX PCR ####[facility] , Automated neutrophil %Ordere d By: Forest Giordano on 09-25-2023 Neutrophils/100 WBC (Bld) 47.6 % Normal . [facility] Comment on above: Performed By: #### F ER, HEPATIC, FE and TIBC, PT, LIPID, CBC ####[address]#### HBCAB, HBSAG, ALPHA PHEN, REYNALDO RFX ADD ON, HBSAB, CERULOP, SMAB, HCV RX PCR ####[facility] , Bilirubin.direct [Mass/volum e] in Serum or PlasmaOrdered By: Forest Giordano on 09-25-2023 Bilirubin.direct [Mass/Vol] 0.10 mg/dL 0.03-0.18 [facility] Bilirubin.total [Mass/volume ] in Serum or PlasmaOrdered By: Forest Giordano on 09-25-2023 Bilirubin [Mass/Vol] 0.6 mg/dL Normal 0.3-1.0 [facility] Comment on above: Performed By: #### F ER, HEPATIC, FE and TIBC, PT, LIPID, CBC ####[place] [address] [place]#### HBCAB, HBSAG, ALPHA PHEN, REYNALDO RFX ADD ON, HBSAB, CERULOP, SMAB, HCV RX PCR ####[facility] , Ceruloplasminon 09-25-2023 Ceruloplasmin 22.9 mg/dL Normal 19.0-39.0 [facility] Comment on above: Result Comment: Perf ormed at: - [facility] [address] [id number] Bookmaker'S Clerk: Dhruv Schreiber PhD, Phone: [phone] PERFORMED BY: [facility] [address] [place] [address] PATHOLOGIST LENDING ADVISOR LORRAINE DIETZ M.D. Performed By: #### F ER, HEPATIC, FE and TIBC, PT, LIPID, CBC ####[place] [id number] [address]#### HBCAB, HBSAG, ALPHA PHEN, REYNALDO RFX ADD ON, HBSAB, CERULOP, SMAB, HCV RX PCR ####[facility] , Cholesterol [Mass/volume] in Serum or PlasmaOrdered By: Forest Giordano on 09-25-2023 Cholesterol [Mass/Vol] 199 mg/dL Normal 140-200 [facility] Comment on above: Chol less than 200 m g/dl low riskChol 201-239 mg/dl borderline riskChol 240 mg/dl and greater high risk Result Comment: Chol less than 200 mg/dl low risk Chol 201-239 mg/dl borderline risk Chol 240 mg/dl and greater high risk Performed By: #### F ER, HEPATIC, FE and TIBC, PT, LIPID, CBC ####[facility] [place] [address] [place]#### HBCAB, HBSAG, ALPHA PHEN, REYNALDO RFX ADD ON, HBSAB, CERULOP, SMAB, HCV RX PCR ####[facility] , Cholesterol in LDL Calc [Mas s/Vol]Ordered By: Forest Giordano on 09-25-2023 Cholesterol in LDL [Mass/Vol] 122 mg/dL 0-100 [facility] Comment on above: LDL ATP III CLASSIFI CATIONLDL less than 100 mg/dL OptimalLDL 100-129 mg/dL Near or above optimalLDL 130-159 mg/dL Borderline highLDL 160-189 mg/dL HighLDL greater than 189 mg/dL Very high Cholesterol in VLDL Calc [Ma ss/Vol]Ordered By: Forest Giordano on 09-25-2023 Cholesterol in VLDL [Mass/Vol] 17 mg/dL [facility] Complete Blood Count Auto Di ffon 09-25-2023 Mean Corpuscular HGB Conc 34.2 g/dL Normal 32.0-35.0 [facility] Comment on above: Performed By: #### F ER, HEPATIC, FE and TIBC, PT, LIPID, CBC ####[facility]#### HBCAB, HBSAG, ALPHA PHEN, REYNALDO RFX ADD ON, HBSAB, CERULOP, SMAB, HCV RX PCR ####[facility] , NRBC% 0.1 /100{WBC} Normal 0-0.5 [facility] Comment on above: Performed By: #### F ER, HEPATIC, FE and TIBC, PT, LIPID, CBC ####[facility] [place] [address] [place]#### HBCAB, HBSAG, ALPHA PHEN, REYNALDO RFX ADD ON, HBSAB, CERULOP, SMAB, HCV RX PCR ####[facility] , DNA double strand Ab [Units/ volume] in SerumOrdered By: Forest Giordano on 09-25-2023 DNA double strand Ab Qn (S) 1 [IU]/mL 0-9 [facility] Comment on above: Negative <5 Equivoca l 5 - 9 Positive >9 Erythrocyte distribution wid th [Ratio] by Automated countOrdered By: Forest Giordano on 09-25-2023 Erythrocyte distribution width (RBC) [Ratio] 13.8 % Normal 11.9-15.3 [facility] Comment on above: Performed By: #### F ER, HEPATIC, FE and TIBC, PT, LIPID, CBC ####[facility] [place] [address] [place]#### HBCAB, HBSAG, ALPHA PHEN, REYNALDO RFX ADD ON, HBSAB, CERULOP, SMAB, HCV RX PCR ####[facility] , Erythrocytes [#/volume] in B lood by Automated countOrdered By: Forest Giordano on 09-25-2023 RBC (Bld) [#/Vol] 4.81 10*6/uL Normal 3.60-5.00 [facility] Comment on above: Performed By: #### F ER, HEPATIC, FE and TIBC, PT, LIPID, CBC ####[address]#### HBCAB, HBSAG, ALPHA PHEN, REYNALDO RFX ADD ON, HBSAB, CERULOP, SMAB, HCV RX PCR ####[facility] , Ferritin [Mass/volume] in Se rum or PlasmaOrdered By: Forest Giordano on 09-25-2023 Ferritin [Mass/Vol] 153.5 ng/mL Normal 11.0-306.8 [facility] Comment on above: Performed By: #### F ER, HEPATIC, FE and TIBC, PT, LIPID, CBC ####[address]#### HBCAB, HBSAG, ALPHA PHEN, REYNALDO RFX ADD ON, HBSAB, CERULOP, SMAB, HCV RX PCR ####[facility] , Hematocrit [Volume Fraction] of Blood by Automated countOrdered By: Forest Giordano on 09-25-2023 Hematocrit (Bld) [Volume fraction] 43.4 % Normal 34.0-46.4 [facility] Comment on above: Performed By: #### F ER, HEPATIC, FE and TIBC, PT, LIPID, CBC ####[place] [address] [place]#### HBCAB, HBSAG, ALPHA PHEN, REYNALDO RFX ADD ON, HBSAB, CERULOP, SMAB, HCV RX PCR ####[facility] , Hemoglobin [Mass/volume] in BloodOrdered By: Forest Giordano on 09-25-2023 Hemoglobin (Bld) [Mass/Vol] 14.9 g/dL Normal 11.8-15.4 [facility] Comment on above: Performed By: #### F ER, HEPATIC, FE and TIBC, PT, LIPID, CBC ####[facility]#### HBCAB, HBSAG, ALPHA PHEN, REYNALDO RFX ADD ON, HBSAB, CERULOP, SMAB, HCV RX PCR ####[facility] , Hep C Ab wRfx to Qnt PCRon 0 09-25-2023 Hepatitis C Virus Antibody Non-Reactive Normal Non Reactive [facility] Comment on above: Performed By: #### F ER, HEPATIC, FE and TIBC, PT, LIPID, CBC ####[place] [address] [address]#### HBCAB, HBSAG, ALPHA PHEN, REYNALDO RFX ADD ON, HBSAB, CERULOP, SMAB, HCV RX PCR ####[facility] , Interpretation Hepatitis C Normal . [facility] Comment on above: Result Comment: Not infected with HCV unless early or acute infection is suspected (which may be delayed in an immunocompromised individual), or other evidence exists to indicate HCV infection. Performed By: #### F ER, HEPATIC, FE and TIBC, PT, LIPID, CBC ####[address]#### HBCAB, HBSAG, ALPHA PHEN, REYNALDO RFX ADD ON, HBSAB, CERULOP, SMAB, HCV RX PCR ####[facility] , Hepatic Panelon 09-25-2023 Albumin [Mass/Vol] 4.2 g/dL Normal 3.5-5.7 [facility] Comment on above: Performed By: #### F ER, HEPATIC, FE and TIBC, PT, LIPID, CBC ####[place] [address] [place]#### HBCAB, HBSAG, ALPHA PHEN, REYNALDO RFX ADD ON, HBSAB, CERULOP, SMAB, HCV RX PCR ####[facility] , Bilirubin,Indirect 0.5 mg/dL Normal [facility] Comment on above: Performed By: #### F ER, HEPATIC, FE and TIBC, PT, LIPID, CBC ####[address]#### HBCAB, HBSAG, ALPHA PHEN, REYNALDO RFX ADD ON, HBSAB, CERULOP, SMAB, HCV RX PCR ####[facility] , Bilirubin.indirect [Mass/Vol] 0.10 mg/dL Normal 0.03-0.18 [facility] Comment on above: Performed By: #### F ER, HEPATIC, FE and TIBC, PT, LIPID, CBC ####[address]#### HBCAB, HBSAG, ALPHA PHEN, REYNALDO RFX ADD ON, HBSAB, CERULOP, SMAB, HCV RX PCR ####[facility] , Hepatitis B Core Antibodyon 09-25-2023 Hepatitis B Core Antibody Negative Normal Negative [facility] Comment on above: Result Comment: Perf ormed at: - [facility] [place] [id number] Bookmaker'S Clerk: Dhruv Schreiber PhD, Phone: [phone] Performed By: #### F ER, HEPATIC, FE and TIBC, PT, LIPID, CBC ####[address]#### HBCAB, HBSAG, ALPHA PHEN, REYNALDO RFX ADD ON, HBSAB, CERULOP, SMAB, HCV RX PCR ####[facility] , Hepatitis B Surface Antibody on 09-25-2023 Hepatitis B Surface Antibody Non-Reactive Normal . [facility] Comment on above: Result Comment: Non Reactive: Inconsistent with immunity, less than 10 mIU/mL Reactive: Consistent with immunity, greater than 9.9 mIU/mL Performed By: #### F ER, HEPATIC, FE and TIBC, PT, LIPID, CBC ####[address]#### HBCAB, HBSAG, ALPHA PHEN, REYNALDO RFX ADD ON, HBSAB, CERULOP, SMAB, HCV RX PCR ####[facility] , Hepatitis B Surface Antigeno n 09-25-2023 HBsAg Screen Negative Normal Negative [facility] Comment on above: Result Comment: PERF ORMED BY: [facility] [address] [place] [address] PATHOLOGIST LENDING ADVISOR LORRAINE DIETZ M.D. Performed By: #### F ER, HEPATIC, FE and TIBC, PT, LIPID, CBC ####[facility] [id number] [place] [address] [facility]#### HBCAB, HBSAG, ALPHA PHEN, REYNALDO RFX ADD ON, HBSAB, CERULOP, SMAB, HCV RX PCR ####[facility] , Hepatitis B virus surface Ab [Presence] in SerumOrdered By: Forest Giordano on 09-25-2023 HBV surface Ab Ql (S) Non-Reactive . [facility] Comment on above: Non Reactive: Incons istent with immunity, less than 10 mIU/mL Reactive: Consistent with immunity, greater than 9.9 mIU/mL Hepatitis B virus surface Ag [Presence] in Serum or Plasma by ImmunoassayOrdered By: Forest Giordano on 09-25-2023 HBV surface Ag IA Ql Negative Negative [facility] Hepatitis C virus IgG Ab [Pr esence] in Serum or Plasma by ImmunoassayOrdered By: Forest Giordano on 09-25-2023 HCV IgG IA Ql Non-Reactive Non Reactive [facility] INR in Platelet poor plasma by Coagulation assayOrdered By: Forest Giordano on 09-25-2023 INR Coag (PPP) [Relative time] 1.0 {INR} Normal [facility] Comment on above: INR Therapeutic Rang e [...] heart valves: 3 - 4.5 PERFORMED BY: [facility] [address] [place] [address] PATHOLOGIST LENDING ADVISOR LORRAINE DIETZ M.D. Performed By: #### F ER, HEPATIC, FE and TIBC, PT, LIPID, CBC ####[address]#### HBCAB, HBSAG, ALPHA PHEN, REYNALDO RFX ADD ON, HBSAB, CERULOP, SMAB, HCV RX PCR ####[facility] , Iron [Mass/volume] in Serum or PlasmaOrdered By: Forest Giordano on 09-25-2023 Iron [Mass/Vol] 78 ug/dL Normal 50-212 [facility] Comment on above: Performed By: #### F ER, HEPATIC, FE and TIBC, PT, LIPID, CBC ####[address]#### HBCAB, HBSAG, ALPHA PHEN, REYNALDO RFX ADD ON, HBSAB, CERULOP, SMAB, HCV RX PCR ####[facility] , Iron and TIBC Profileon 09-06 % Iron Saturation 23.6 % Normal 20-50 [facility] Comment on above: Performed By: #### F ER, HEPATIC, FE and TIBC, PT, LIPID, CBC ####[place] [address] [place]#### HBCAB, HBSAG, ALPHA PHEN, REYNALDO RFX ADD ON, HBSAB, CERULOP, SMAB, HCV RX PCR ####[facility] , Total Iron Binding Capacity 330 ug/dL Normal 255-450 [facility] Comment on above: Performed By: #### F ER, HEPATIC, FE and TIBC, PT, LIPID, CBC ####[facility] [id number] [place] [id number] [facility]#### HBCAB, HBSAG, ALPHA PHEN, REYNALDO RFX ADD ON, HBSAB, CERULOP, SMAB, HCV RX PCR ####[facility] , Iron binding capacity [Mass/ volume] in Serum or PlasmaOrdered By: Forest Giordano on 09-25-2023 Iron binding capacity [Mass/Vol] 330 ug/dL 255-450 [facility] Iron saturation [Mass Fracti on] in Serum or PlasmaOrdered By: Forest Giordano on 09-25-2023 Iron saturation [Mass fraction] 23.6 % 20-50 [facility] Leukocytes [#/volume] correc toya for nucleated erythrocytes in Blood by Automated counOrdered By: Forest Giordano on 09-25-2023 WBC corrected for nucl RBC Auto (Bld) [#/Vol] 7.2 10*3/uL 3.8-11.6 [facility] Leukocytes [#/volume] in Blo od by Automated countOrdered By: Forest Giordano on 09-25-2023 WBC (Bld) [#/Vol] 7.2 10*3/uL Normal 3.8-11.6 [facility] Comment on above: Performed By: #### F ER, HEPATIC, FE and TIBC, PT, LIPID, CBC ####[facility] [place] [id number] [place]#### HBCAB, HBSAG, ALPHA PHEN, REYNALOD RFX ADD ON, HBSAB, CERULOP, SMAB, HCV RX PCR ####[facility] , Lipid Panelon 09-25-2023 LDL Cholesterol,Calculated 122 mg/dL High 0-100 [facility] Comment on above: Result Comment: LDL ATP III CLASSIFICATION LDL less than 100 mg/dL Optimal LDL 100-129 mg/dL Near or above optimal LDL 130-159 mg/dL Borderline high LDL 160-189 mg/dL High LDL greater than 189 mg/dL Very high Performed By: #### F ER, HEPATIC, FE and TIBC, PT, LIPID, CBC ####[place] [address] [address]#### HBCAB, HBSAG, ALPHA PHEN, REYNALDO RFX ADD ON, HBSAB, CERULOP, SMAB, HCV RX PCR ####[facility] , Triglyceride w/Reflex 89 mg/dL Normal 0-149 [facility] Comment on above: Result Comment: TRIG ATP III CLASSIFICATION TRIG less than 150 mg/dL Normal TRIG 150-199 mg/dL Borderline high TRIG 200-500 mg/dL High TRIG greater than 500 mg/dL Very high Standard traceable to the Center for Disease Conrtrol and Prevention (CDC) test method. Performed By: #### F ER, HEPATIC, FE and TIBC, PT, LIPID, CBC ####[address]#### HBCAB, HBSAG, ALPHA PHEN, REYNALDO RFX ADD ON, HBSAB, CERULOP, SMAB, HCV RX PCR ####[facility] , VLDL CHOLESTEROL 17 mg/dL Normal [facility] Comment on above: Performed By: #### F ER, HEPATIC, FE and TIBC, PT, LIPID, CBC ####[address]#### HBCAB, HBSAG, ALPHA PHEN, REYNALDO RFX ADD ON, HBSAB, CERULOP, SMAB, HCV RX PCR ####[facility] , Lymphocytes [#/volume] in Bl ood by Automated countOrdered By: Forest Giordano on 09-25-2023 Lymphocytes (Bld) [#/Vol] 3.1 10*3/uL Normal 1.00-4.8 [facility] Comment on above: Performed By: #### F ER, HEPATIC, FE and TIBC, PT, LIPID, CBC ####[address]#### HBCAB, HBSAG, ALPHA PHEN, REYNALDO RFX ADD ON, HBSAB, CERULOP, SMAB, HCV RX PCR ####[facility] , Lymphocytes/100 leukocytes i n Blood by Automated countOrdered By: Forest Giordano on 09-25-2023 Lymphocytes/100 WBC (Bld) 42.7 % Normal . [facility] Comment on above: Performed By: #### F ER, HEPATIC, FE and TIBC, PT, LIPID, CBC ####[facility]#### HBCAB, HBSAG, ALPHA PHEN, REYNALDO RFX ADD ON, HBSAB, CERULOP, SMAB, HCV RX PCR ####[facility] , MCH [Entitic mass] by Automa toya countOrdered By: Forest Giordano on 09-25-2023 MCH (RBC) [Entitic mass] 30.9 pg Normal 24.7-34.3 [facility] Comment on above: Performed By: #### F ER, HEPATIC, FE and TIBC, PT, LIPID, CBC ####[place] [address] [address]#### HBCAB, HBSAG, ALPHA PHEN, REYNALDO RFX ADD ON, HBSAB, CERULOP, SMAB, HCV RX PCR ####[facility] , MCHC Auto (RBC) [Mass/Vol]Or dered By: Forest Giordano on 09-25-2023 MCHC (RBC) [Mass/Vol] 34.2 g/dL 32.0-35.0 [facility] MCV [Entitic volume] by Auto mated countOrdered By: Forest Giordano on 09-25-2023 MCV (RBC) [Entitic vol] 90.3 fL Normal 80-100 [facility] Comment on above: Performed By: #### F ER, HEPATIC, FE and TIBC, PT, LIPID, CBC ####[facility] [place] [address] [place]#### HBCAB, HBSAG, ALPHA PHEN, REYNALDO RFX ADD ON, HBSAB, CERULOP, SMAB, HCV RX PCR ####[facility] , Neutrophils [#/volume] in Bl ood by Automated countOrdered By: Forest Giordano on 02-21-2024 Neutrophils (Bld) [#/Vol] 3.4 10*3/uL Normal 1.8-7.7 [facility] Comment on above: Performed By: #### F ER, HEPATIC, FE and TIBC, PT, LIPID, CBC ####[facility] [id number] [place] [address] [facility]#### HBCAB, HBSAG, ALPHA PHEN, REYNALDO RFX ADD ON, HBSAB, CERULOP, SMAB, HCV RX PCR ####[facility] , No Panel InformationOrdered By: Forest Giordano on 09-25-2023 Anti-Nuclear Antibody Interpret See comment . [facility] Comment on above: Autoantibody Disease Association --------- Condition Frequency ---------Antinuclear Antibody, SLE, mixed connectiveDirect (REYNALDO-D) tissue diseases ---------dsDNA SLE 40 - 60% ---------Chromatin Drug induced SLE 90% SLE 48 - 97% ---------SSA (Ro) SLE 25 - 35% Sjogren's Syndrome 40 - 70% Lupus 100% ---------SSB (La) SLE 10% Sjogren's Syndrome 30% ---------Sm (anti-Llanes) SLE 15 - 30% ---------COMPUTER SCIENCE INSTRUCTOR Mixed Connective Tissue Disease 95%(U1 nRNP, SLE 30 - 50%anti-ribonucleoprotein) Polymyositis and/or Dermatomyositis 20% ---------Scl-70 (antiDNA Scleroderma (diffuse) 20 - 35%topoisomerase) Crest 13% ---------Shey-1 Polymyositis and/or Dermatomyositis 20 - 40% ---------Centromere B Scleroderma - Crest variant 80%Performed at: CB - [facility] [address] [id number] Director: Dhruv Schreiber PhD, Phone: [phone] Hepatitis B Core Total Antibody Negative Negative [facility] Comment on above: Performed at: [facility] [address] [id number] Director: Dhruv Schreiber PhD, Phone: [phone] Hepatitis C Interpretation See comment . [facility] Comment on above: Not infected with HC V unless early or acute infection issuspected (which may be delayed in an immunocompromisedindividual), or other evidence exists to indicate HCVinfection. COMPUTER SCIENCE INSTRUCTOR Antibody <0.2 AI 0.0-0.9 [facility] Nucleated erythrocytes [Pres ence] in Blood by Automated countOrdered By: Forest Giordano on 09-25-2023 Nucleated RBC Auto Ql (Bld) 0.1 /100{WBC} 0-0.5 [facility] Platelet mean volume [Entiti c volume] in Blood by Automated countOrdered By: Forest Giordano on 09-25-2023 Platelet mean volume (Bld) [Entitic vol] 8.9 fL Normal 6.3-10.7 [facility] Comment on above: Performed By: #### F ER, HEPATIC, FE and TIBC, PT, LIPID, CBC ####[facility] [id number]#### HBCAB, HBSAG, ALPHA PHEN, REYNALDO RFX ADD ON, HBSAB, CERULOP, SMAB, HCV RX PCR ####[facility] , Platelets [#/volume] in Bloo d by Automated countOrdered By: Forest Giordano on 09-25-2023 Platelets (Bld) [#/Vol] 179 10*3/uL Normal 150-450 [facility] Comment on above: Performed By: #### F ER, HEPATIC, FE and TIBC, PT, LIPID, CBC ####[facility] [id number]#### HBCAB, HBSAG, ALPHA PHEN, REYNALDO RFX ADD ON, HBSAB, CERULOP, SMAB, HCV RX PCR ####[facility] , Protein [Mass/volume] in Ser um or PlasmaOrdered By: Forest Giordano on 09-25-2023 Protein [Mass/Vol] 6.8 g/dL Normal 6.4-8.9 [facility] Comment on above: Performed By: #### F ER, HEPATIC, FE and TIBC, PT, LIPID, CBC ####[facility] [id number] [place] [address] [facility]#### HBCAB, HBSAG, ALPHA PHEN, REYNALDO RFX ADD ON, HBSAB, CERULOP, SMAB, HCV RX PCR ####[facility] , Prothrombin time (PT)Ordered By: Forest Giordaon on 09-25-2023 PT Coag (PPP) [Time] 11.2 s Normal 9.0-12.9 [facility] Comment on above: A hematocrit value g reater than 55% may lead to inaccurate results in coagulation testing. Patients having hematocrit values >55% require a special collection tube for coagulation studies. Please contact the laboratory at [phone] for redraw instructions. Result Comment: A he matocrit value greater than 55% may lead to inaccurate results in coagulation testing. Patients having hematocrit values >55% require a special collection tube for coagulation studies. Please contact the laboratory at [phone] for redraw instructions. Performed By: #### F ER, HEPATIC, FE and TIBC, PT, LIPID, CBC ####[facility] [id number] [place] [address] [facility]#### HBCAB, HBSAG, ALPHA PHEN, REYNALDO RFX ADD ON, HBSAB, CERULOP, SMAB, HCV RX PCR ####[facility] , Scl-70 antibody assayOrdered By: Forest Giordano on 09-25-2023 SCL-70 extractable nuclear Ab IA Qn (S) >8.0 AI 0.0-0.9 [facility] Serum Shey-1 extractable nucle ar antibody assay (units/volume)Ordered By: Forest Giordano on 09-25-2023 Shey-1 extractable nuclear Ab Qn (S) <0.2 AI 0.0-0.9 [facility] Serum Sjogrens syndrome-A ex tractable nuclear antibody assay (units/volume)Ordered By: Forest Giordano on 09-25-2023 Sjogrens syndrome-A extractable nuclear Ab Qn (S) <0.2 AI 0.0-0.9 [facility] Serum Sjogrens syndrome-B ex tractable nuclear antibody assay (units/volume)Ordered By: Forest Giordano on 09-25-2023 Sjogrens syndrome-B extractable nuclear Ab Qn (S) 0.5 AI 0.0-0.9 [facility] Serum Llanes extractable nucl ear antigen (SHALINI) antibody assay (units/volume)Ordered By: Forest Giordano on 09-25-2023 Llanes extractable nuclear Ab Qn (S) <0.2 AI 0.0-0.9 [facility] Serum [id number] me asurementOrdered By: Forest Giordano on 09-25-2023 Alpha 1 antitrypsin [Mass/Vol] 155 mg/dL 101-187 [facility] Serum centromere protein B a ntibody assay (units/volume)Ordered By: Forest Giordano on 09-25-2023 Centromere protein B Ab Qn (S) <0.2 AI 0.0-0.9 [facility] Serum globulin measurement b y calculation (mass/volume)Ordered By: Forest Giordano on 09-25-2023 Globulin (S) [Mass/Vol] 2.6 g/dL Normal F [facility] Comment on above: Performed By: #### F ER, HEPATIC, FE and TIBC, PT, LIPID, CBC ####[facility] [id number]#### HBCAB, HBSAG, ALPHA PHEN, REYNALDO RFX ADD ON, HBSAB, CERULOP, SMAB, HCV RX PCR ####[facility] , Serum or plasma albumin/glob ulin mass ratioOrdered By: Forest Giordano on 09-25-2023 Albumin/Globulin [Mass ratio] 1.6 {ratio} Normal [facility] Comment on above: Performed By: #### F ER, HEPATIC, FE and TIBC, PT, LIPID, CBC ####[facility] [id number] [place] [address] [place]#### HBCAB, HBSAG, ALPHA PHEN, REYNALDO RFX ADD ON, HBSAB, CERULOP, SMAB, HCV RX PCR ####[facility] , Serum or plasma alpha 1 anti trypsin phenotyping identification by immunofixationOrdered By: Forest Giordano on 09-25-2023 Alpha 1 antitrypsin phenotyping Immunofixation Nom Mm . [facility] Comment on above: Phenotype Population A-1-AT Concentration* [...] reference. Ranges used to confirm phenotype.Performed at: [facility] [employer] [id number] Director: Dhruv Schreiber PhD, Phone: [phone] at: [facility] [address] [id number] Director: Leyla Britt MD, Phone: [phone] Serum or plasma ceruloplasmi n measurement (mass/volume)Ordered By: Forest Giordano on 09-25-2023 Ceruloplasmin [Mass/Vol] 22.9 mg/dL 19.0-39.0 [facility] Comment on above: Performed at: [address] [id number] Director: Dhruv Schreiber PhD, Phone: [phone] Serum or plasma chromatin an tibody assay (units/volume)Ordered By: Forest Giordano on 09-25-2023 Chromatin Ab Qn <0.2 AI 0.0-0.9 [facility] Serum or plasma free cefurox latesha measurement (mass/volume)Ordered By: Forest Giordano on 09-25-2023 Cefuroxime free [Mass/Vol] Positive Negative [facility] Serum or plasma high density lipoprotein (HDL) cholesterol measurementOrdered By: Forest Giordano on 09-25-2023 Cholesterol in HDL [Mass/Vol] 59 mg/dL Normal 23-92 [facility] Comment on above: HDL CHOL ATP-III CLA SSIFICATION Cardiovascular RiskHDL > or equal to 60 mg/dL LOWHDL < 40 mg/dL HIGH Result Comment: HDL CHOL ATP-III CLASSIFICATION Cardiovascular Risk HDL > or equal to 60 mg/dL LOW HDL < 40 mg/dL HIGH Performed By: #### F ER, HEPATIC, FE and TIBC, PT, LIPID, CBC ####[facility] [id number] [place] [id number] [facility]#### HBCAB, HBSAG, ALPHA PHEN, REYNALDO RFX ADD ON, HBSAB, CERULOP, SMAB, HCV RX PCR ####[facility] , Serum or plasma non-glucuron idated bilirubin measurement (mass/volume)Ordered By: Forest Giordano on 09-25-2023 Bilirubin.indirect [Mass/Vol] 0.5 mg/dL [facility] Serum or plasma total choles terol/high density lipoprotein (HDL) cholesterol mass ratOrdered By: Forest Giordano on 09-25-2023 Cholesterol.total/Nanci sterol in HDL [Mass ratio] 3.4 {ratio} Normal <5.0 [facility] Comment on above: Result Comment: PERF ORMED BY: [facility] [address] [facility] [place] [address] PATHOLOGIST LENDING ADVISOR LORRAINE DIETZ M.D. Performed By: #### F ER, HEPATIC, FE and TIBC, PT, LIPID, CBC ####[facility] [id number] [place] [id number] [facility]#### HBCAB, HBSAG, ALPHA PHEN, REYNALDO RFX ADD ON, HBSAB, CERULOP, SMAB, HCV RX PCR ####[facility] , Smooth Muscle Antibodyon Smooth Muscle Antibody 129 High 0-19 [facility] Comment on above: Result Comment: Nega tive 0 - 19 Weak positive 20 - 30 Moderate to strong positive >30 Actin Antibodies are found in 52-85% of patients with autoimmune hepatitis or chronic active hepatitis and in 22% of patients with primary biliary cirrhosis. Performed at: - [facility] [address] [id number] Bookmaker'S Clerk: Dhruv Schreiber PhD, Phone: [phone] PERFORMED BY: [place] [address] PATHOLOGIST LENDING ADVISOR LORRAINE DIETZ M.D. Performed By: #### F ER, HEPATIC, FE and TIBC, PT, LIPID, CBC ####[address]#### HBCAB, HBSAG, ALPHA PHEN, REYNALDO RFX ADD ON, HBSAB, CERULOP, SMAB, HCV RX PCR ####[facility] , Transferrin [Mass/volume] in Serum or PlasmaOrdered By: Forest Giordano on 09-25-2023 Transferrin [Mass/Vol] 236 mg/dL Normal 203-362 [facility] Comment on above: Performed By: #### F ER, HEPATIC, FE and TIBC, PT, LIPID, CBC ####[address]#### HBCAB, HBSAG, ALPHA PHEN, REYNALDO RFX ADD ON, HBSAB, CERULOP, SMAB, HCV RX PCR ####[facility] , Triglyceride [Mass/volume] i n Serum or PlasmaOrdered By: Forest Giordano on 09-25-2023 Triglyceride [Mass/Vol] 89 mg/dL 0-149 [facility] Comment on above: TRIG ATP III CLASSIF ICATIONTRIG less than 150 mg/dL NormalTRIG 150-199 mg/dL Borderline highTRIG 200-500 mg/dL High TRIG greater than 500 mg/dL Very highStandard traceable to the Center for Disease Conrtrol and Prevention (CDC) test method. US liveron 09-25-2023 liver [facility] [place] [address] [place] [address] Ultrasound Report Signed Patient: Dejah Dykes MR#: [id number] : 1970 Acct:[id number] Age/Sex: 53 / F ADM Date: 09/25/23 Loc: Room: Type: [facility] Attending Dr: Forest Giordano APRN Ordering Provider: [...] Alka Earl M.D.09/25/2023 3:07 PM Dictation Location: [place] [address] Tech: Lucy Cm Transcribed By: YADIRA 09/25/23 1507 Dictated By: Alka Earl MD 09/25/23 1505 Signed By: 09/25/23 1507 Normal [facility] CNOVon 09-24-2023 CNOV Office Visit (STED) -- DEJAH DYKES ([id number]) 1970 F Date Time Provider Department 09/24/23 1:00 PM ALFREDO CRUZ STEElaine During your visit today, we recorded the following information about you: Pulse Blood pressure Weight Height 84/minute 145/84 115 kg 1.626 m Alfredo Cruz MD 09/24/2023 2:51 PM Signed Endocrinology and Metabolism [facility] - Initial Visit Patient Name: Dejah Dykes Referring Provider: Elly Galicia [address] [place] [address] My final recommendations will be communicated back [...] managed Social: 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 Normal [facility] Comprehensive metabolic 2000 panelon 09-24-2023 Albumin [Mass/Vol] 4.1 g/dL Normal 3.9-4.[address] [facility] Comment on above: Order Comment: Speci men Type: BLOOD SPECIMEN Ordering Facility: [facility] Address: [address] [place] [address] Performed By: #### 3 024-7, 3016-3, 20723-4 #### [facility] CLIA [id number] [address] [place] [address] [place] ALP [Catalytic activity/Vol] 83 U/L Normal 34-123 [facility] Comment on above: Order Comment: Speci men Type: BLOOD SPECIMEN Ordering Facility: [facility] Address: [address] [place] [address] Performed By: #### 3 024-7, 3016-3, 92377-1 #### [facility] CLIA [id number] [address] [place] [address] [place] ALT [Catalytic activity/Vol] 63 U/L High 7-38 [facility] Comment on above: Order Comment: Speci men Type: BLOOD SPECIMEN Ordering Facility: [facility] Address: [address] [place] [address] Performed By: #### 3 024-7, 3016-3, 64224-5 #### [facility] CLIA [id number] [address] [place] [address] [place] Anion gap [Moles/Vol] 13 mmol/L Normal 9-18 [facility] Comment on above: Order Comment: Speci men Type: BLOOD SPECIMEN Ordering Facility: [facility] Address: [address] [place] [address] Performed By: #### 3 024-7, 3016-3, 35783-0 #### [facility] CLIA [id number] [address] [place] [address] [place] AST [Catalytic activity/Vol] 68 U/L High 13-35 [facility] Comment on above: Order Comment: Speci men Type: BLOOD SPECIMEN Ordering Facility: [facility] Address: [address] [place] [address] Performed By: #### 3 024-7, 3016-3, 97282-3 #### [facility] CLIA [id number] [address] [place] [address] [place] Bilirubin [Mass/Vol] 0.6 mg/dL Normal 0.2-1.3 [facility] Comment on above: Order Comment: Speci men Type: BLOOD SPECIMEN Ordering Facility: [facility] Address: [address] [place] [address] Performed By: #### 3 024-7, 3015-3, 34949-2 #### [facility] CLIA [id number] [address] [place] [address] [place] Calcium [Mass/Vol] 9.7 mg/dL Normal 8.5-10.[address] [facility] Comment on above: Order Comment: Speci men Type: BLOOD SPECIMEN Ordering Facility: [facility] Address: [address] [place] [address] Performed By: #### 3 024-7, 3015-3, 68689-2 #### [facility] CLIA [id number] [address] [place] [address] [place] Chloride [Moles/Vol] 104 mmol/L Normal 97-105 [facility] Comment on above: Order Comment: Speci men Type: BLOOD SPECIMEN Ordering Facility: [facility] Address: [address] [place] [address] Performed By: #### 3 024-7, 6-3, 43953-7 #### [facility] CLIA [id number] [address] [place] [address] [place] CO2 [Moles/Vol] 26 mmol/L Normal 22-30 [facility] Comment on above: Order Comment: Pauline giordano Type: BLOOD SPECIMEN Ordering Facility: [facility] Address: [address] [place] [address] Performed By: #### 3 024-7, 3016-3, 39630-6 #### [facility] CLIA [id number] [address] [place] [address] [place] Creatinine [Mass/Vol] 0.73 mg/dL Normal 0.58-0.96 [facility] Comment on above: Order Comment: Speceduardo giordano Type: BLOOD SPECIMEN Ordering Facility: [facility] Address: [address] [place] [address] Performed By: #### 3 024-7, 3016-3, 08021-8 #### [facility] CLIA [id number] [address] [place] [address] [place] Creatinine and Glomerular filtration rate.predicted panel (S/P/Bld) 98 mL/min/1.73m??? Normal >=60 [facility] Comment on above: Order Comment: Pauline giordano Type: BLOOD SPECIMEN Ordering Facility: [facility] Address: [address] [place] [address] Result Comment: Brenda mated Glomerular Filtration Rate [...] GFR. Performed By: #### 3 024-7, 3016-3, 39373-5 #### [facility] CLIA [id number] [facility] [place] [address] [place] Glucose [Mass/Vol] 82 mg/dL Normal 74-[address] [facility] Comment on above: Order Comment: Pauline giordano Type: BLOOD SPECIMEN Ordering Facility: [facility] Address: [place] [address] Result Comment: The [place] Diabetes Association (ADA) provides guidance for cutoff [...] Standards of Medical Care in Diabetes 2016, [place] Diabetes Association. Diabetes Care. 2016.39(Suppl 1). Performed By: #### 3 024-7, 3016-3, 84259-7 #### [facility] CLIA [id number] [facility] [place] [address] [place] Potassium [Moles/Vol] 3.4 mmol/L Low 3.7-5.1 [facility] Comment on above: Order Comment: Pauline giordano Type: BLOOD SPECIMEN Ordering Facility: [facility] Address: [place] [address] Performed By: #### 3 024-7, 3016-3, 18232-3 #### [facility] CLIA [id number] [facility] [place] [address] [place] Protein [Mass/Vol] 7.2 g/dL Normal 6.3-8.[address] [facility] Comment on above: Order Comment: Pauline giordano Type: BLOOD SPECIMEN Ordering Facility: [facility] Address: [address] [id number] Performed By: #### 3 024-7, 3016-3, 60704-4 #### [facility] CLIA [id number] [address] [place] [address] [place] Sodium [Moles/Vol] 143 mmol/L Normal 136-[address] [facility] Comment on above: Order Comment: Speci men Type: BLOOD SPECIMEN Ordering Facility: [facility] Address: [address] [place] [address] Performed By: #### 3 024-7, 3016-3, 61282-8 #### [facility] CLIA [id number] [address] [place] [address] [place] Urea nitrogen [Mass/Vol] 8 mg/dL Normal 7-21 [facility] Comment on above: Order Comment: Speci men Type: BLOOD SPECIMEN Ordering Facility: [facility] Address: [address] [place] [address] Performed By: #### 3 024-7, 3016-3, 25141-2 #### [facility] CLIA [id number] [address] [place] [address] [place] HbA1c (Bld)on 09-24-2023 Average glucose Estimated from glycated hemoglobin (Bld) [Mass/Vol] 120 mg/dL [facility] HbA1c (Bld) [Mass fraction] 5.8 % High 4.3 - 5.6 % [facility] Average glucose Estimated from glycated hemoglobin (Bld) [Mass/Vol] 120 mg/dL Normal [facility] Comment on above: Order Comment: Speci men Type: BLOOD SPECIMEN Ordering Facility: [facility] Address: [address] [place] [address] Result Comment: eAG: (Estimated average glucose) is a calculated value from HgbA1c and is medical sales representative of the average blood glucose level in the last 2-3 month period. Performed By: #### 5 5454-3 #### [facility] CLIA [id number] [address] [place] [address] [place] HbA1c (Bld) [Mass fraction] 5.8 % High 4.3-5.6 [facility] Comment on above: Order Comment: Speci men Type: BLOOD SPECIMEN Ordering Facility: [facility] Address: [address] [place] [address] Result Comment: Amer [place] Diabetes Association guidelines indicate that patients with HgbA1c in the range 5.7-6.4% are at increased risk for development of diabetes, and intervention by lifestyle modification may be beneficial. HgbA1c greater or equal to 6.5% is considered diagnostic of diabetes. Performed By: #### 5 5454-3 #### [facility] CLIA [id number] [address] [facility] [place] [address] [place] [facility] Heart and Vascular Office/Cl inic Noteon 09-14-2023 [...] medication. She is being referred to a automation consultant. She denies taking NSAIDs for her pain. [...] with voice recognition artificial intelligence software, specifically [employer], Datapipe and or MC2. Substitutions may have occurred due to the inherent limitations of voice recognition and artificial intelligence software. ATTESTATION: Documentation services were performed after the patient or guardian consented to allow [employer] to record this visit. NESTOR contact center specialist and provider reviewed before signing. NESTOR: [...] mEq= 1 ta (more content not included)... [facility] Comment on above: Result Comment: Elec tronically Signed By: Carlos ARCOS, Forest Jung\.br\Date and Time Signed: 09/14/23 12:38 EST\.br\Electronically Co-Signed By: Laura Bautista\.br\Date and Time Co-Signed: 09/12/23 15:19 EST Consent for Treatmenton Consent for Treatment [id number]#1.00TIFF [facility] Physician Orderon 09-12-2023 Physician Order [id number]#1.00TIFF [facility] MA Mamm Screen w/CAD if perf and 3D Bilon 09-02-2023 MA Mamm Screen w/CAD if perf and 3D Gunnar Exam Date/Time: 08/30/2023 13:37 EST Reason for Exam: Z12.31 SCREENING Report IMPRESSION: BIRADS 1 NEGATIVE, NORMAL INTERVAL FOLLOW-UP. EXAMINATION: MA Mamm Screen w/CAD if perf and 3D Gunnar CLINICAL HISTORY: Z12.31 SCREENING COMPARISON: Priors from 2013 RESULT: Digital mammography and 3D tomosynthesis of bilateral breasts was performed. Almost entirely fatty. There is no suspicious mass, asymmetry, architectural distortion, or calcification. Vascular calcifications: Absent. CAD analysis was performed and used in the interpretation. Dense Breast: No Follow-up: 12 MONTH RECALL. Board Certified Radiologists. Accredited by the ACR and FDA. MAMMOGRAPHY IS VERY IMPORTANT TO YOUR HEALTH. THE [place] [employer] GUIDELINES RECOMMEND THAT WOMEN 40 [...] Layton Terry MD Transcribed by: JOSE Technologist: Liyah Assessment: BI-RADS Category 1-Negative Recommendation: Normal interval follow-up Normal [facility] Consent for Treatmenton 08-06 Consent for Treatment [id number]#1.00TIFF Normal [facility] Outside Records Officeon Outside Records Office [id number]#1.00TIFF Normal [facility] Referrals Officeon 4 Referrals Office [id number]#1.00TIFF Normal [facility] US LE Venous Duplex Insuffic iency [...] 0.3 Depth: Intrafascial Reflux (sec): None. Normal [facility] Consent for Treatmenton Consent for Treatment [id number]#1.00TIFF Normal [facility] ED Note-Physicianon 08-13-19 24 ED Note-Physician [...] EST, STAT, Start date 08/12/23 11:49:00 EST, 01/08/24 11:49:00 EST predniSONE, 60 mg = 3 tab(s), Oral, Daily, X 7 day(s), # 21 tab(s), Refills(s) 0, Pharmacy: [id number], 162, cm, 08/12/23 11:38:00 EST, Height/Length Dosing, [...] Daily Follow-up With When Contact Information Lenora CERVANTESMERS In 3 days 08/15/2023 [place] [id number] Business (1) Additional Instructions: Patient Education Hip Pain Attestation Patient seen and evaluated by the physician social research assistant. Attending physician was present in the emergency department and supervised care. This visit was performed by both the physician and an APC. I performed all aspects of the MDM as documented. This report was transcribed using voice recognition software. Every effort was made to ensure accuracy, however, inadvertently computerized prop sawyer mistakes may be present. Appropriate healthcare PPE [...] Tab, 10 (more content not included)... Normal [facility] Comment on above: Result Comment: Elec tronically Signed By: Brian Brito PA-C\.br\Date and Time Signed: 08/12/23 14:35 EST\.br\Electronically Co-Signed By: James Richards DO\.br\Date and Time Co-Signed: 08/13/23 08:46 EST Physician Orderon 08-13-2023 Physician Order [id number]#1.00TIFF [facility] RAD - Ultrasound Impressiono n 08-13-2023 RAD - Ultrasound Impression [id number]#1.00TIFF [facility] Consent for Treatmenton Consent for Treatment [id number]#1.00TIFF [facility] Discharge Instructionson Discharge Instructions [id number]#1.00TIFF [facility] ED Clinical Summaryon 2023 ED Clinical Summary (Inserted Image. Carrie ble to display) [place] [address] ED Clinical Summary Person Information Name: DEJAH DYKES [facility] Age: 53 Years : 1970 Sex: Female Language: Arabic PCP: Lenora SANTOS PA-C Marital Status: Visit [...] 08/12/2023 12:41:21 08/12/2023 12:41:21 08/12/2023 12:41:21 ADDRESS: [address] [place] [address] [id number] PHYS DOC NOTES: MEDICAL INFORMATION: Prescriptions Given: New Medications [facility][id number], [address] [place], [place] [id number], [phone] predniSONE (predniSONE 20 mg Tab) 3 Tablets [...] Follow up: With: Address: When: Len[place] [address] Business (1) In 3 days 08/15/2023 DIAGNOSIS: Hip pain Normal [facility] ED Patient Education Noteon 08-12-2023 ED [...] that cause pain. General instructions ? Take nbdf-fnj-pjhazov and prescription medicines only as told by [...] provider. Document Revised: 12/07/2019 Document Reviewed: 12/07/2019 [employer] Patient Education ? 2022 [employer] [facility] ED Patient Summaryon 024 ED Patient Summary (Inserted Image. Carrie ble to display) [address] [address] Patient Discharge Instructions Person Information Name: DEJAH DYKES Age: 53 Years Arrival Date: 08/12/2023 11:28:07 Discharge Diagnosis: Hip pain Primary Care Physician: Lenora SANTOS PA-C Provider Information Primary Provider: James Richards DO Advanced Nurse Unit Manager:Brian Brito PA-C The exam and treatment you received in the Emergency Department were for an urgent problem and are not intended as complete care. It is important that you follow up with a doctor, nurse practitioner, or physician?s social research assistant for ongoing care. If your symptoms [...] Follow-up Instructions: With: Address: When: [place] [address] Business (1) In 3 days 08/15/2023 In the event that this physician does not participate in your insurance network, please consult with your insurance company to find a nearby participating provider. Patient Education Materials: Hip Pain A MESSAGE TO ALL PATIENTS REGARDING OPIOIDS PRESCRIPTION OPIOIDS: WHAT YOU NEED TO KNOW Prescription opioids can be used to help relieve lvtrykog-mr-lglmql pain and are often prescribed following a [...] be struggling with addiction, tell your health urgent care and ask for guidance or call SAMHSA?S National Helpline at 3-367-443-HELP. v Source: US Department of Health and Human (more content not included)... Normal [facility] Heart and Vascular Office/Cl inic Noteon 08-11-2023 [...] her stopped breathing episodes, she saw a software configuration manager. She is nervous because her blood pressure [...] an upcoming appointment with endocrinology at the [facility] scheduled for 09/2023. Review of Systems [...] with voice recognition artificial intelligence software, specifically [employer], Datapipe and or MC2. Substitutions may have occurred with voice recognition and artificial intelligence software. ATTESTATION: Documentation services were performed after patient or guardian consented to allow [employer] to record this visit. NESTOR contact center specialist and provider reviewed before signing. NESTOR: [...] Arthroscopy of knee (more content not included)... [facility] Comment on above: Result Comment: Elec tronically Signed By: Carlos ARCOS, Forest Jung\.br\Date and Time Signed: 08/11/23 20:37 EST\.br\Electronically Co-Signed By: Emily Jesus\.br\Date and Time Co-Signed: 08/02/23 16:46 EST Insurance Correspondenceon 0 08-08-2023 Insurance Correspondence [id number]#1.00TIFF [facility] Consent for Treatmenton 07-06 Consent for Treatment [id number]#1.00TIFF [facility] Physician Orderon 08-02-2023 Physician Order [id number]#1.00TIFF [facility] CNOVon 06-24-2023 CNOV Office Visit (ENDOCF ) -- DEJAH DYKES ([id number]) 1970 F Date Time Provider Department 06/24/23 [...] - Biotin- none - Amiodarone- none - S[place]uket- none - Head/neck radiation- none Interval history: [...] Pertinent procedure/alexys (more content not included)... Normal [facility] T4 Free SerPl-mCncon 023 Free T4 [Mass/Vol] 1.0 ng/dL Normal 0.9-1.[address] [facility] Comment on above: Order Comment: Speci men Type: BLOOD SPECIMEN Ordering Facility: [facility] Address: [address] [place] [address] Performed By: #### 3 016-3, 3024-7 #### [facility] CLIA [id number] [address] [place] [address] [place] TSH SerPl-aCncon 06-24-2023 TSH Qn 3.580 m[IU]/L Normal 0.270-4.20 0 [facility] Comment on above: Order Comment: Speci men Type: BLOOD SPECIMEN Ordering Facility: [facility] Address: [address] [place] [address] Performed By: #### 3 016-3, 3024-7 #### [facility] CLIA [id number] [address] [place] [address] [place] Referrals Officeon 3 Referrals Office [id number]#1.00TIFF Normal [facility] Cortis SerPl-mCncon 05-14-20 23 Cortisol [Mass/Vol] 0.5 ug/dL Low 4.8-19.5 [facility] Comment on above: Order Comment: Speci men Type: BLOOD SPECIMEN Ordering Facility: [facility] Address: [address] [place], [place] [id number] Result Comment: Prov ided reference range is from 6-10 AM sample collection time. Cortisol Reference Range: 6-10 AM = 4.8-19.5 ug/dL, 4-8 PM = 2.5-11.9 ug/dL Performed By: #### 3 024-7, 3016-3, 22759-5 #### [facility] CLIA [id number] [address] [place] [address] [place] DEXAMETHASONEon 05-14-2023 DEXAMETHASONE 376.1 ng/dL Normal [facility] Comment on above: Order Comment: Pauline giordano Type: BLOOD SPECIMEN Ordering Facility: [facility] Address: [place] [address] Result Comment: INTE RPRETIVE INFORMATION: Dexamethasone, Serum [...] developed and its performance characteristics determined by [facility]. It has not been cleared or approved by the US Food and Drug Administration. This test was performed in a CLIA certified laboratory and is intended for clinical purposes. Performed By: [facility] [address] [place] [address] Auto Engine Mechanic: Nitin Khoury MD, PhD CLIA Number: [id number] Performed By: #### 3 024-7, 3016-3, 87735-9 #### [facility] CLIA [id number] [address] [place] [address] OF [place] Aldost SerPl-mCncon 05-06-20 23 Aldosterone [Mass/Vol] 7.6 ng/dL Normal 0.0-<35.4 Cl [facility] Comment on above: Order Comment: Pauline giordano Type: BLOOD SPECIMEN Ordering Facility: [facility] Address: [place] [phone] Result Comment: The reference interval for serum/plasma [...] ng/dL. Performed By: #### 3 024-7, 3016-3, 47711-9 #### [facility] CLIA [id number] [address] [place] [id number] [place] Basic metabolic 2000 panelon 05-06-2023 Anion gap [Moles/Vol] 11 mmol/L Normal 9-18 [facility] Comment on above: Order Comment: Speci men Type: BLOOD SPECIMEN Ordering Facility: [facility] Address: [address] Performed By: #### 3 024-7, 3016-3, 63605-0 #### [facility] CLIA [id number] [address] [place] [address] [place] Calcium [Mass/Vol] 9.4 mg/dL Normal 8.5-10.[address] [facility] Comment on above: Order Comment: Speci men Type: BLOOD SPECIMEN Ordering Facility: [facility] Address: [address] Performed By: #### 3 024-7, 3016-3, 11621-5 #### [facility] CLIA [id number] [address] [place] [address] [place] Chloride [Moles/Vol] 104 mmol/L Normal 97-105 [facility] Comment on above: Order Comment: Speci men Type: BLOOD SPECIMEN Ordering Facility: [facility] Address: [address] Performed By: #### 3 024-7, 3016-3, 58697-7 #### [facility] CLIA [id number] [address] [place] [id number] [place] CO2 [Moles/Vol] 26 mmol/L Normal 22-30 [facility] Comment on above: Order Comment: Speci men Type: BLOOD SPECIMEN Ordering Facility: [facility] Address: [address] Performed By: #### 3 024-7, 3016-3, 93141-0 #### [facility] CLIA [id number] [address] [place] Creatinine [Mass/Vol] 0.84 mg/dL Normal 0.58-0.96 [facility] Comment on above: Order Comment: Pauline giordano Type: BLOOD SPECIMEN Ordering Facility: [facility] Address: [address] [place] [address] Performed By: #### 3 024-7, 3016-3, 54947-0 #### [facility] CLIA [id number] [facility] OF [facility] Creatinine and Glomerular filtration rate.predicted panel (S/P/Bld) 83 mL/min/1.73m??? Normal >=60 [facility] Comment on above: Order Comment: Pauline giordano Type: BLOOD SPECIMEN Ordering Facility: [facility] Address: [address] [place] [address] Result Comment: Brenda mated Glomerular Filtration Rate [...] GFR. Performed By: #### 3 024-7, 3016-3, 08214-4 #### [facility] CLIA [id number] [facility] [place] [address] [place] Glucose [Mass/Vol] 104 mg/dL High 74-[address] [facility] Comment on above: Order Comment: Pauline giordano Type: BLOOD SPECIMEN Ordering Facility: [facility] Address: [address] [place] [address] Result Comment: The [place] Diabetes Association (ADA) provides guidance for cutoff [...] Standards of Medical Care in Diabetes 2016, [place] [employer] Association. Diabetes Care. 2016.39(Suppl 1). Performed By: #### 3 024-7, 3016-3, 12455-0 #### [facility] CLIA [id number] [facility] [place] [address] [place] Potassium [Moles/Vol] 3.9 mmol/L Normal 3.7-5.1 [facility] Comment on above: Order Comment: Speci men Type: BLOOD SPECIMEN Ordering Facility: [facility] Address: [address] [place] [address] Performed By: #### 3 024-7, 3016-3, 78914-0 #### [facility] CLIA [id number] [address] [place] [address] [place] Sodium [Moles/Vol] 141 mmol/L Normal 136-[address] [facility] Comment on above: Order Comment: Speci men Type: BLOOD SPECIMEN Ordering Facility: [facility] Address: [address] [place] [address] Performed By: #### 3 024-7, 3016-3, 89940-3 #### [facility] CLIA [id number] [address] [place] [address] [place] Urea nitrogen [Mass/Vol] 9 mg/dL Normal 7-21 [facility] Comment on above: Order Comment: Speci men Type: BLOOD SPECIMEN Ordering Facility: [facility] Address: [address] [place] [address] Performed By: #### 3 024-7, 3016-3, 76699-2 #### [facility] CLIA [id number] [address] [place] [id number] [place] CNOVon 05-06-2023 CNOV Office Visit (ENDOCF ) -- DEJAH DYKES ([id number]) 1970 F Date Time Provider Department 05/06/23 8:00 AM E[facility] ENDOCF During your visit today, [...] - Biotin- none - Amiodarone- none - Setauket- none - Head/neck radiation- none I have [...] file t (more content not included)... Normal [facility] DIRECT RENIN PLASMAon 2022 DIRECT RENIN 11.8 pg/mL Normal 3.6-81.6 [facility] Comment on above: Order Comment: Pauline giordano Type: BLOOD SPECIMEN Ordering Facility: [facility] Address: [address] [place] [phone] Result Comment: A ra harika of aldosterone [...] pg/mL Performed By: #### 3 024-7, 3016-3, 76639-2 #### [facility] CLIA [id number] [address] [place] [address] [place] PATIENT UPRIGHT OR SUPINE Upright Normal [facility] Comment on above: Order Comment: Pauline giordano Type: BLOOD SPECIMEN Ordering Facility: [facility] Address: [address] [place] [phone] Performed By: #### 3 024-7, 3016-3, 61879-3 #### [facility] CLIA [id number] [address] [place] T4 Free SerPl-mCncon 023 Free T4 [Mass/Vol] 1.3 ng/dL Normal 0.9-1.[address] [facility] Comment on above: Order Comment: Speci men Type: BLOOD SPECIMEN Ordering Facility: [facility] Address: [address] [place] [address] Performed By: #### 3 024-7, 3016-3, 73086-9 #### [facility] CLIA [id number] [address] [place] [address] OF RED TSH SerPl-aCncon 05-06-2023 TSH Qn 1.590 m[IU]/L Normal 0.270-4.20 0 [facility] Comment on above: Order Comment: Speci men Type: BLOOD SPECIMEN Ordering Facility: [facility] Address: [address] [place] [address] Performed By: #### 3 024-7, 3016-3, 01730-1 #### [facility] [place] [id number] [address] [place] [address] OF [facility] Patient Eval Forms Officeon 04-09-2023 Patient Eval Forms Office [id number]:127 Normal [facility] Consent for Treatmenton Consent for Treatment [id number]:127 Normal [facility] Sleep Office/Clinic Noteon 0 04-05-2023 Sleep [...] Hodge, [place], [place] Within 1 year [address] [facility] [place] [address]- Additional Instructions: Problem List/Past Medical [...] Alcohol - (more content not included)... Normal [facility] Comment on above: Result Comment: Elec tronically Signed By: Donald ARCOS, Juan Hodge\.br\Date and Time Signed: 04/05/23 10:43 EDT Activated partial thrombopla stin time (aPTT) in platelet poor plasma by coagulation aOrdered By: Regino Metcalf on 03-10-2023 aPTT Coag (PPP) [Time] 28.6 s 25.1-36.5 [facility] Alanine aminotransferase [En zymatic activity/volume] in Serum or PlasmaOrdered By: Regino Metcalf on 03-10-2023 ALT [Catalytic activity/Vol] 44 U/L 7-52 [facility] Albumin [Mass/volume] in Ser um or Plasma by Bromocresol green (BCG) dye binding methoOrdered By: Regino Metcalf on 03-10-2023 Albumin BCG dye [Mass/Vol] 4.1 g/dL 3.5-5.7 [facility] Alkaline phosphatase [Enzyma tic activity/volume] in Serum or PlasmaOrdered By: Regino Metcalf on 03-10-2023 ALP [Catalytic activity/Vol] 67 U/L 34-104 [facility] Aspartate aminotransferase [ Enzymatic activity/volume] in Serum or PlasmaOrdered By: Regino Metcalf on 03-10-2023 AST [Catalytic activity/Vol] 41 U/L 13-39 [facility] Basophils Auto (Bld) [#/Vol] Ordered By: Regino Metcalf on 03-10-2023 Basophils (Bld) [#/Vol] 0.1 10*3/uL 0.0-0.2 [facility] Basophils/100 WBC Auto (Bld) Ordered By: Regino Metcalf on 03-10-2023 Basophils/100 WBC (Bld) 1.5 % . F [facility] Bilirubin Test strip Ql (U)O rdered By: Regino Metcalf on 03-10-2023 Bilirubin Ql (U) Negative Negative [facility] Bilirubin.direct [Mass/volum e] in Serum or PlasmaOrdered By: Regino Metcalf on 03-10-2023 Bilirubin.direct [Mass/Vol] 0.10 mg/dL 0.03-0.18 [facility] Bilirubin.total [Mass/volume ] in Serum or PlasmaOrdered By: Regino Metcalf on 03-10-2023 Bilirubin [Mass/Vol] 0.5 mg/dL 0.3-1.0 [facility] Calcium [Mass/volume] in Ser um or PlasmaOrdered By: Regino Metcalf on 03-10-2023 Calcium [Mass/Vol] 9.0 mg/dL 8.6-10.3 [facility] Carbon dioxide, total [Moles /volume] in Serum or PlasmaOrdered By: Regino Metcalf on 03-10-2023 CO2 [Moles/Vol] 26.6 mmol/L 21.0-31.0 [facility] Chloride [Moles/volume] in S nusrat or PlasmaOrdered By: Regino Metcalf on 03-10-2023 Chloride [Moles/Vol] 104 mmol/L 98-107 [facility] Color Auto (U)Ordered By: Norris Metcalf on 03-10-2023 Color (U) Yellow Yellow [facility] Creatine kinase [Enzymatic a ctivity/volume] in Serum or PlasmaOrdered By: Regino Metcalf on 03-10-2023 CK [Catalytic activity/Vol] 119 U/L 30-223 [facility] Creatinine [Mass/volume] in Serum or PlasmaOrdered By: Regino Metcalf on 03-10-2023 Creatinine [Mass/Vol] 0.86 mg/dL 0.60-1.20 [facility] Eosinophils Auto (Bld) [#/Vo l]Ordered By: Regino Metcalf on 03-10-2023 Eosinophils (Bld) [#/Vol] 0.1 10*3/uL 0.0-0.45 [facility] Eosinophils/100 WBC Auto (Bl d)Ordered By: Regino Metcalf on 03-10-2023 Eosinophils/100 WBC (Bld) 1.5 % . [facility] Erythrocyte distribution wid th Auto (RBC) [Ratio]Ordered By: Regino Metcalf on 03-10-2023 Erythrocyte distribution width (RBC) [Ratio] 13.3 % 11.9-15.3 [facility] Globulin Calc (S) [Mass/Vol] Ordered By: Regino Metcalf on 03-10-2023 Globulin (S) [Mass/Vol] 3.0 g/dL F [facility] Glucose [Mass/volume] in Ser um or PlasmaOrdered By: Regino Metcalf on 03-10-2023 Glucose [Mass/Vol] 95 mg/dL 70-100 [facility] Comment on above: ADA recommended refe rence rangeRandom Glucose Reference Range is dependent on time and content of last meal. Glucose of more than 200 mg/dL in a nonstressed, ambulatory subject supports the diagnosis of Diabetes Mellitus. Hematocrit Auto (Bld) [Volum e fraction]Ordered By: Regino Metcalf on 03-10-2023 Hematocrit (Bld) [Volume fraction] 43.2 % 34.0-46.4 [facility] Hemoglobin [Mass/volume] in BloodOrdered By: Regino Metcalf on 03-10-2023 Hemoglobin (Bld) [Mass/Vol] 14.6 g/dL 11.8-15.4 [facility] Ketones Auto test strip (U) [Mass/Vol]Ordered By: Regino Metcalf on 03-10-2023 Ketones (U) [Mass/Vol] Negative Negative Fi [facility] - CoagulationOrde red By: Regino Metcalf on 03-10-2023 PT Coag (PPP) [Time] 11.3 s 9.0-12.9 [facility] Leukocytes [#/volume] correc toya for nucleated erythrocytes in Blood by Automated counOrdered By: Regino Metcalf on 03-10-2023 WBC corrected for nucl RBC Auto (Bld) [#/Vol] 8.9 10*3/uL 3.8-11.6 [facility] Lymphocytes Auto (Bld) [#/Vo l]Ordered By: Regino Metcalf on 03-10-2023 Lymphocytes (Bld) [#/Vol] 3.8 10*3/uL 1.00-4.8 [facility] Lymphocytes/100 WBC Auto (Bl d)Ordered By: Regino Metcalf on 03-10-2023 Lymphocytes/100 WBC (Bld) 42.3 % . [facility] MCH Auto (RBC) [Entitic mass ]Ordered By: Regino Metcalf on 03-10-2023 MCH (RBC) [Entitic mass] 30.5 pg 24.7-34.3 [facility] MCHC Auto (RBC) [Mass/Vol]Or dered By: Regino Metcalf on 03-10-2023 MCHC (RBC) [Mass/Vol] 33.8 g/dL 32.0-35.0 [facility] MCV Auto (RBC) [Entitic vol] Ordered By: Regino Metcalf on 03-10-2023 MCV (RBC) [Entitic vol] 90.2 fL 80-100 F [facility] Magnesium [Mass/volume] in S nusrat or PlasmaOrdered By: Regino Metcalf on 03-10-2023 Magnesium [Mass/Vol] 2.1 mg/dL 1.9-2.7 [facility] Monocyte distribution width [Entitic volume] in Blood by AutomatedOrdered By: Regino Metcalf on 03-10-2023 Monocyte distribution width Auto (Bld) [Entitic vol] 19.08 % 0.00-20.00 [facility] Monocytes Auto (Bld) [#/Vol] Ordered By: Regino Metcalf on 03-10-2023 Monocytes (Bld) [#/Vol] 0.8 10*3/uL 0.0-0.8 [facility] Monocytes/100 WBC Auto (Bld) Ordered By: Regino Metcalf on 03-10-2023 Monocytes/100 WBC (Bld) 8.9 % . F [facility] Natriuretic peptide B [Mass/ Vol]Ordered By: Regino Metcalf on 03-10-2023 Natriuretic peptide B (Bld) [Mass/Vol] 28.0 pg/mL 5-100 [facility] Neutrophils Auto (Bld) [#/Vo l]Ordered By: Regino Metcalf on 03-10-2023 Neutrophils (Bld) [#/Vol] 4.1 10*3/uL 1.8-7.7 [facility] Neutrophils/100 WBC Auto (Bl d)Ordered By: Regnio Metcalf on 03-10-2023 Neutrophils/100 WBC (Bld) 45.8 % . [facility] Nitrite Test strip Ql (U)Ord ered By: Regino Metcalf on 03-10-2023 Nitrite Ql (U) Negative Negative [facility] No Panel InformationOrdered By: Regino Metcalf on 03-10-2023 D-Dimer Quantitative (PE/DVT) < 200 ng/mL 0-243 [facility] Comment on above: The reference range for [...] conditions. Estimated GFR (CKD-EPI) > 60.0 mL/Min [facility] Creatinine Clearance (Chem 95.11 [facility] Nucleated erythrocytes [Pres ence] in Blood by Automated countOrdered By: Regino Metcalf on 03-10-2023 Nucleated RBC Auto Ql (Bld) 0.1 /100{WBC} 0-0.5 [facility] Platelet mean volume Auto (B ld) [Entitic vol]Ordered By: Regino Metcalf on 03-10-2023 Platelet mean volume (Bld) [Entitic vol] 9.2 fL 6.3-10.7 [facility] Platelet poor plasma interna tional normalized ratio (INR) by coagulation assay (relatOrdered By: Regino Metcalf on 03-10-2023 INR Coag (PPP) [Relative time] 1.0 {INR} [facility] Comment on above: INR Therapeutic Rang e [...] 03-10-2023 Platelets (Bld) [#/Vol] 187 10*3/uL 150-450 [facility] Potassium [Moles/volume] in Serum or PlasmaOrdered By: Regino Metcalf on 03-10-2023 Potassium [Moles/Vol] 3.7 mmol/L 3.5-5.1 [facility] Protein Auto test strip (U) [Mass/Vol]Ordered By: Regino Metcalf on 03-10-2023 Protein (U) [Mass/Vol] Negative Negative Fi [facility] Protein [Mass/volume] in Ser um or PlasmaOrdered By: Regino Metcalf on 03-10-2023 Protein [Mass/Vol] 7.1 g/dL 6.4-8.9 [facility] RBC Auto (Bld) [#/Vol]Ordere d By: Regino Metcalf on 03-10-2023 RBC (Bld) [#/Vol] 4.79 10*6/uL 3.60-5.00 [facility] Serum or plasma albumin/glob ulin mass ratioOrdered By: Regino Metcalf on 03-10-2023 Albumin/Globulin [Mass ratio] 1.4 {ratio} [facility] Serum or plasma anion gap de terminationOrdered By: Regino Metcalf on 03-10-2023 Anion gap [Moles/Vol] 15.1 mmol/L 6.0-15.0 [facility] Serum or plasma non-glucuron idated bilirubin measurement (mass/volume)Ordered By: Regino Metcalf on 03-10-2023 Bilirubin.indirect [Mass/Vol] 0.4 mg/dL [facility] Sodium [Moles/volume] in Ser um or PlasmaOrdered By: Regino Metcalf on 03-10-2023 Sodium [Moles/Vol] 142 mmol/L 136-145 [facility] Specific gravity Auto test s trip (U) [Rel density]Ordered By: Regino Metcalf on 03-10-2023 Specific gravity (U) [Rel density] 1.021 1.001-1.03 0 [facility] Thyrotropin [Units/volume] i n Serum or PlasmaOrdered By: Regino Metcalf on 03-10-2023 TSH Qn 2.28 m[IU]/L 0.45-5.33 [facility] Thyroxine (T4) free [Mass/vo lume] in Serum or PlasmaOrdered By: Regino Metcalf on 03-10-2023 Free T4 [Mass/Vol] 0.77 ng/dL 0.61-1.12 [facility] Troponin I.cardiac [Mass/vol ume] in Serum or Plasma by Detection limit <= 0.01 ng/Ordered By: Regino Metcalf on 03-10-2023 Troponin I.cardiac DL <= 0.01 ng/mL [Mass/Vol] 3.2 pg/mL 0.0-15.0 [facility] Urea nitrogen [Mass/volume] in Serum or PlasmaOrdered By: Regino Metcalf on 03-10-2023 Urea nitrogen [Mass/Vol] 14 mg/dL 7-25 [facility] Urine clarity by refractomet ry automatedOrdered By: Regino Metcalf on 03-10-2023 Clarity Refractometry automated (U) Clear Clear [facility] Urine glucose measurement by automated test strip (mass/volume)Ordered By: Regino Metcalf on 03-10-2023 Glucose Auto test strip (U) [Mass/Vol] Normal mg/dL Normal [facility] Urine hemoglobin detection b y automated test stripOrdered By: Regino Metcalf on 03-10-2023 Hemoglobin Auto test strip Ql (U) Negative Negative [facility] Urine leukocyte esterase det ection by automated test stripOrdered By: Regino Metcalf on 03-10-2023 Leukocyte esterase Auto test strip Ql (U) Negative Negative [facility] Urobilinogen Auto test strip (U) [Mass/Vol]Ordered By: Regino Metcalf on 03-10-2023 Urobilinogen (U) [Mass/Vol] Normal mg/dL Normal [facility] WBC Auto (Bld) [#/Vol]Ordere d By: Regino Metcalf on 03-10-2023 WBC (Bld) [#/Vol] 8.9 10*3/uL 3.8-11.6 [facility] pH Auto test strip (U)Ordere d By: Regino Metcalf on 03-10-2023 pH (U) 5.5 [pH] 5.0-9.[address] [facility] [address] Abdomen/Pelvis w/o [place] faganyelitza 03-22-2022 CT Abdomen/Pelvis w/o Contrast CLINICAL HISTORY: [...] by Dm Taylor on 03/22/2022 0937 Normal [facility] Comprehensive Metabolic Pane seb 12-19-2021 Albumin [Mass/Vol] 4.4 g/dL Normal 3.6-5.1 Izabela [facility] Comment on above: Performed By: #### C MP #### [facility] [address] [place], [place] [id number] Albumin/Globulin [Mass ratio] 1.7 {ratio} Normal 1.0-2.5 [facility] Comment on above: Performed By: #### C MP #### [facility] [address] [place], [place] [id number] ALP [Catalytic activity/Vol] 76 U/L Normal 35-119 [facility] Comment on above: Performed By: #### C MP #### [facility] [address] [place], [place] [id number] ALT [Catalytic activity/Vol] 22 U/L Normal 6-33 [facility] Comment on above: Result Comment: 07/05 Female reference range changed. Performed By: #### C MP #### [facility] [address] [facility] [place] [id number] Anion gap [Moles/Vol] 16 mmol/L Normal 12-20 [facility] Comment on above: Result Comment: Effe ctive 08/10/2019 reference range changed. Performed By: #### C MP #### [facility] [address] [place], [place] [id number] AST [Catalytic activity/Vol] 25 U/L Normal 9-34 [facility] Comment on above: Performed By: #### C MP #### [facility] [address] [place], [place] [id number] Bilirubin [Mass/Vol] 0.50 mg/dL Normal 0.30-1.20 [facility] Comment on above: Performed By: #### C MP #### [facility] [address] [place], [place] [id number] BUN/CREA 17 Ratio Normal 6-22 [facility] Comment on above: Performed By: #### C MP #### [facility] [address] [place], [place] [id number] Calcium [Mass/Vol] 9.8 mg/dL Normal 8.6-10.2 [facility] Comment on above: Performed By: #### C MP #### [facility] [address] [facility] [place] [id number] Chloride [Moles/Vol] 103 mmol/L Normal 98-107 [facility] Comment on above: Performed By: #### C MP #### [facility] [address] [place], [place] [id number] CO2 [Moles/Vol] 26 mmol/L Normal 20-31 [facility] Comment on above: Performed By: #### C MP #### [facility] [address] [place], [place] [id number] Creatinine [Mass/Vol] 0.8 mg/dL Normal 0.6-1.4 [facility] Comment on above: Performed By: #### C MP #### [facility] [address] [place], [place] [id number] eGFRAA 95 mL/min/1.73m2 Normal >60 [facility] Special[facility] Comment on above: Performed By: #### C MP #### [facility] [address] [place], [place] [id number] eGFRNAA 79 mL/min/1.73m2 Normal >60 [facility] Specialist Comment on above: Performed By: #### C MP #### [facility] [address] [place], [place] [id number] Globulin (S) [Mass/Vol] 2.6 g/dL Normal 1.9-3.7 [facility] Comment on above: Performed By: #### C MP #### [facility] [address] [place], [place] [id number] Glucose [Mass/Vol] 128 mg/dL High 65-99 [facility] [employer] Comment on above: Result Comment: For FASTING Glucose --- ADA reference ranges: Normal 65-99 mg/dl Prediabetes 100-125 Diabetes >/= 126 Performed By: #### C MP #### [facility] [address] [place], [place] [id number] Potassium [Moles/Vol] 3.3 mmol/L Low 3.5-5.5 [facility] [employer] Comment on above: Performed By: #### C MP #### [facility] [address] [place], [place] [id number] Protein [Mass/Vol] 7.0 g/dL Normal 6.1-8.1 [facility] [employer] Comment on above: Performed By: #### C MP #### [facility] [address] [place], [place] [id number] Sodium [Moles/Vol] 142 mmol/L Normal 135-146 Izabela [facility] [employer] Comment on above: Performed By: #### C MP #### [facility] [address] [place], [place] [id number] Urea nitrogen [Mass/Vol] 13 mg/dL Normal 7-25 [facility] [employer] Comment on above: Performed By: #### C MP #### [facility] [address] [place], [place] [id number] CHEMISTRYOrdered By: SYSTEM SYSTEM on 12-15-2021 Troponin [...] PM) Normal Negative [facility] UA Auto SS Setauket.plasma/S[place]et. RBC (Bld) [Mass ratio] 0-3 /HPF Normal [...] [facility] UA Auto SS Urobilinogen Qn (U) [id number] {Tana'U}/dL Normal 0.0 - 1.0 EU/dL [facility] [...] : DR MATTHEW RIVER M.D. Admission #: [id number] Family : Order #: [id number] CLICK HERE TO VIEW EXAM RADIOLOGY REPORT [...] Medeiros M.D. on 09/11/2019 at 11:22 Normal [facility] Vital Signs Date Time Vital Sign Value Performing Clinician Faci lity 05-04-2024 13:52-0400 Body mass index (BMI) [Ratio] 43.1 kg/m2 PA-C Lenora Tom Work Phone: [facility] 05-04-2024 10:54-0400 Body height 161.29 cm PA-C Lenora Tom Work Phone: [facility] 05-04-2024 10:54-0400 Body weight 112.17 kg PA-C Lenora Tom Work Phone: [facility] 04-30-2024 14:49-0400 Body mass index (BMI) [Ratio] 43.1 kg/m2 PA-C Lenora Tom Work Phone: [facility] 04-30-2024 14:41-0400 Body height 161.29 cm PA-C Lenora Tom Work Phone: [facility] 04-30-2024 14:41-0400 Body weight 111.13 kg PA-C Lenora Tom Work Phone: [facility] 04-24-2024 09:40-0400 Body height 161.29 cm PA-C Lenora Tom Work Phone: [facility] 04-24-2024 09:40-0400 Body mass index (BMI) [Ratio] 43.8 kg/m2 PA-C Lenora Tom Work Phone: [facility] 04-24-2024 09:40-0400 Body weight 114.05 kg PA-C Lenora Tom Work Phone: [facility] 04-24-2024 09:40-0400 Diastolic blood pressure 65 mm[Hg] PA-C Lenora Tom Work Phone: [facility] 04-24-2024 09:40-0400 Heart rate 72 /min PA-C Lenora Tom Work Phone: [facility] 04-24-2024 09:40-0400 Respiratory rate 18 /min PA-C Lenora Tom Work Phone: [facility] 04-24-2024 09:40-0400 SaO2% (BldA) [Mass fraction] 100 % PA-C Lenora Tom Work Phone: [facility] 04-24-2024 09:40-0400 Systolic blood pressure 128 mm[Hg] PA-C Lenora Tom Work Phone: [facility] 03-18-2024 08:17-0400 Diastolic blood pressure 58 mm[Hg] Tamiko Robert [facility] 03-18-2024 08:17-0400 Heart rate 64 /min Tamiko Robert [facility] 03-18-2024 08:17-0400 Mean blood pressure 82 mm[Hg] Tamiko Robert [facility] 03-18-2024 08:17-0400 Systolic blood pressure 130 mm[Hg] Tamiko Robert [facility] 03-17-2024 09:01-0400 Body height 161.29 cm PA-C Lenora Tom Work Phone: [facility] 03-17-2024 09:01-0400 Body mass index (BMI) [Ratio] 43.1 kg/m2 PA-C Lenora Tom Work Phone: [facility] 03-17-2024 09:01-0400 Body weight 112.12 kg PA-C Lenora Tom Work Phone: [facility] 03-17-2024 09:01-0400 Diastolic blood pressure 73 mm[Hg] PA-C Lenora Tom Work Phone: [facility] 03-17-2024 09:01-0400 Heart rate 60 /min PA-C Lenora Tom Work Phone: [facility] 03-17-2024 09:01-0400 Respiratory rate 18 /min PA-C Lenora Tom Work Phone: [facility] 03-17-2024 09:01-0400 SaO2% (BldA) [Mass fraction] 99 % PA-C Lenora Tom Work Phone: [facility] 03-17-2024 09:01-0400 Systolic blood pressure 133 mm[Hg] PA-C Lenora Tom Work Phone: [facility] 03-03-2024 15:00-0400 Heart rate 62 /min Hu Davis [facility] 03-03-2024 15:00-0400 SaO2% (BldA) [Mass fraction] 100 % Hu Davis [facility] 03-03-2024 15:00-0400 Diastolic blood pressure 76 mm[Hg] Hu Davis [facility] 03-03-2024 15:00-0400 Mean blood pressure 97 mm[Hg] Hu Davis [facility] 03-03-2024 15:00-0400 Systolic blood pressure 141 mm[Hg] Hu Davis [facility] 03-03-2024 14:59-0400 Respiratory rate 16 /min Hu Davis [facility] 03-03-2024 14:52-0400 Diastolic blood pressure 92 mm[Hg] Hu Davis [facility] 03-03-2024 14:52-0400 Heart rate 60 /min Hu Davis [facility] 03-03-2024 14:52-0400 SaO2% (BldA) [Mass fraction] 100 % Hu Davis [facility] 03-03-2024 14:52-0400 Systolic blood pressure 153 mm[Hg] Hu Davis [facility] 03-03-2024 13:53-0400 Heart rate 66 /min Hu Davis [facility] 03-03-2024 13:53-0400 SaO2% (BldA) [Mass fraction] 99 % Hu Davis [facility] 03-03-2024 13:53-0400 Respiratory rate 14 /min Lui Ryan [facility] 03-03-2024 13:53-0400 Diastolic blood pressure 84 mm[Hg] Lui Ryan [facility] 03-03-2024 13:53-0400 Mean blood pressure 108 mm[Hg] Hu Ryan [facility] 03-03-2024 13:53-0400 Systolic blood pressure 158 mm[Hg] Hu Ryan [facility] 03-03-2024 13:53-0400 Body temperature 98.24 [degF] Hu Davis [facility] 01-29-2024 08:14-0400 Diastolic blood pressure 73 mm[Hg] Tamiko Robert [facility] 01-29-2024 08:14-0400 Heart rate 66 /min Tamiko Robert [facility] 01-29-2024 08:14-0400 Mean blood pressure 91 mm[Hg] Tamiko Robert [facility] 01-29-2024 08:14-0400 Respiratory rate 14 /min Tamiko Robert [facility] 01-29-2024 08:14-0400 Systolic blood pressure 128 mm[Hg] Tamiko Robert [facility] 12-24-2023 13:08-0400 Body height 161.29 cm PA-C Lenora Santos Work Phone: [facility] 12-24-2023 13:08-0400 Body mass index (BMI) [Ratio] 43.8 kg/m2 PA-C Lenora Santos Work Phone: [facility] 12-24-2023 13:08-0400 Body weight 114.02 kg PA-C Lenora Santos Work Phone: [facility] 12-24-2023 13:08-0400 Diastolic blood pressure 71 mm[Hg] PA-C Lenora Santos Work Phone: [facility] 12-24-2023 13:08-0400 Heart rate 62 /min PA-C Lenora Santos Work Phone: [facility] 12-24-2023 13:08-0400 Systolic blood pressure 132 mm[Hg] PA-C Lenora Santos Work Phone: [facility] 12-06-2023 11:40-0400 Diastolic blood pressure 70 mm[Hg] PA-C Lenora Santos Work Phone: [facility] 12-06-2023 11:40-0400 Heart rate 59 /min PA-C Lenora Santos Work Phone: [facility] 12-06-2023 11:40-0400 Respiratory rate 16 /min PA-C Lenora Santos Work Phone: [facility] 12-06-2023 11:40-0400 SaO2% (BldA) [Mass fraction] 99 % PA-C Lenora Santos Work Phone: [facility] 12-06-2023 11:40-0400 Systolic blood pressure 120 mm[Hg] PA-C Lenora Santos Work Phone: [facility] 12-06-2023 09:13-0400 Body height 162.56 cm PA-C Lenora Santos Work Phone: [facility] 12-06-2023 09:13-0400 Body weight 116.57 kg PA-C Lenora Santos Work Phone: [facility] 11-11-2023 09:08-0400 Body height 162.6 cm Alfredo Yancey i, MD Work Phone: [facility] 11-11-2023 09:08-0400 Body weight 116 kg Alfredo Yancey i, MD Work Phone: [facility] 11-11-2023 09:08-0400 Diastolic blood pressure 81 mm[Hg] Alfredo Cruz MD Work Phone: [facility] 11-11-2023 09:08-0400 Heart rate 75 /min Alfredo Yancey i, MD Work Phone: [facility] 11-11-2023 09:08-0400 SaO2% (BldA) [Mass fraction] 100 % Alfredo Cruz MD Work Phone: [facility] 11-11-2023 09:08-0400 Systolic blood pressure 138 mm[Hg] Alfredo Cruz MD Work Phone: [facility] 10-30-2023 11:30-0400 Heart rate 60 /min Hu Davis [facility] 10-30-2023 11:30-0400 SaO2% (BldA) [Mass fraction] 100 % Lui Ryan [facility] 10-30-2023 11:30-0400 Diastolic blood pressure 83 mm[Hg] Hu Davis [facility] 10-30-2023 11:30-0400 Mean blood pressure 100 mm[Hg] Lui Ryan [facility] 10-30-2023 11:30-0400 Systolic blood pressure 134 mm[Hg] Hu Ryan [facility] 10-30-2023 11:20-0400 Diastolic blood pressure 81 mm[Hg] Lui Ryan [facility] 10-30-2023 11:20-0400 Heart rate 65 /min Lui Ryan [facility] 10-30-2023 11:20-0400 SaO2% (BldA) [Mass fraction] 100 % Hu Ryan [facility] 10-30-2023 11:20-0400 Systolic blood pressure 164 mm[Hg] Hu Davis [facility] 10-30-2023 10:21-0400 Heart rate 66 /min Hu Davis [facility] 10-30-2023 10:21-0400 SaO2% (BldA) [Mass fraction] 99 % Hu Ryan [facility] 10-30-2023 10:21-0400 Body temperature 97.88 [degF] Hu Davis [facility] 10-30-2023 10:20-0400 Diastolic blood pressure 81 mm[Hg] Hu Davis [facility] 10-30-2023 10:20-0400 Mean blood pressure 98 mm[Hg] Hu Davis [facility] 10-30-2023 10:20-0400 Systolic blood pressure 133 mm[Hg] Hu Davis [facility] 10-30-2023 10:18-0400 Respiratory rate 14 /min Hu Davis [facility] 10-18-2023 13:58-0400 Body height 162.56 cm PA-C Lenora Santos Work Phone: [facility] 10-18-2023 13:58-0400 Body mass index (BMI) [Ratio] 45.8 kg/m2 PA-C Lenora Santos Work Phone: [facility] 10-18-2023 13:58-0400 Body weight 121.1 kg PA-C Lenora Santos Work Phone: [facility] 10-17-2023 08:12-0400 Diastolic blood pressure 75 mm[Hg] Hu Davis [facility] 10-17-2023 08:12-0400 Heart rate 75 /min Hu Davis [facility] 10-17-2023 08:12-0400 Mean blood pressure 94 mm[Hg] Hu Davis [facility] 10-17-2023 08:12-0400 Respiratory rate 14 /min Hu Davis [facility] 10-17-2023 08:12-0400 Systolic blood pressure 131 mm[Hg] Hu Davis [facility] 09-28-2023 14:56-0500 Body temperature 98.6 [degF] [facility] 09-28-2023 14:56-0500 Diastolic blood pressure 85 mm[Hg] [facility] 09-28-2023 14:56-0500 Heart rate 107 /min [facility] 09-28-2023 14:56-0500 Respiratory rate 18 /min [facility] 09-28-2023 14:56-0500 SaO2% (BldA) [Mass fraction] 100 % [facility] 09-28-2023 14:56-0500 Systolic blood pressure 138 mm[Hg] [facility] 09-24-2023 13:26-0500 Body height 162.6 cm Alfredo Yancey i, MD Work Phone: [facility] 09-24-2023 13:26-0500 Body weight 115 kg Alfredo Yancey i, MD Work Phone: [facility] 09-24-2023 13:26-0500 Diastolic blood pressure 84 mm[Hg] Alfredo Cruz MD Work Phone: [facility] 09-24-2023 13:26-0500 Heart rate 84 /min Alfredo Yancey i, MD Work Phone: [facility] 09-24-2023 13:26-0500 SaO2% (BldA) [Mass fraction] 99 % Alfredo Cruz MD Work Phone: [facility] 09-24-2023 13:26-0500 Systolic blood pressure 145 mm[Hg] Alfredo Cruz MD Work Phone: [facility] 09-19-2023 10:33-0500 Body height 162.56 cm THELMA Santos Work Phone: [facility] 09-19-2023 10:07-0500 Body mass index (BMI) [Ratio] 45.8 kg/m2 THELMA Santos Work Phone: [facility] 09-19-2023 10:07-0500 Body weight 121.1 kg PA-C Lenora Tom Work Phone: [facility] 09-12-2023 13:27-0500 Blood Pressure Location Forest Gonzalez [facility] 09-12-2023 13:27-0500 Diastolic blood pressure 78 mm[Hg] Forest Colungaalexx [facility] 09-12-2023 13:27-0500 Heart rate 77 /min Forest Carlos [facility] 09-12-2023 13:27-0500 SaO2% (BldA) [Mass fraction] 99 % Forest Carlos [facility] 09-12-2023 13:27-0500 Systolic blood pressure 130 mm[Hg] Forest Colescooter [facility] 08-12-2023 17:05-0500 Body height 162.56 cm PA-C Lenora Tom Work Phone: [facility] 08-12-2023 17:05-0500 Body temperature 98.2 [degF] PA-C Lenora Tom Work Phone: [facility] 08-12-2023 17:05-0500 Body weight 125.19 kg PA-C Lenora Tom Work Phone: [facility] 08-12-2023 17:05-0500 Diastolic blood pressure 94 mm[Hg] PA-C Lenora Tom Work Phone: [facility] 08-12-2023 17:05-0500 Heart rate 70 /min PA-C Lenora Tom Work Phone: [facility] 08-12-2023 17:05-0500 Respiratory rate 21 /min PA-C Lenora Tom Work Phone: [facility] 08-12-2023 17:05-0500 SaO2% (BldA) [Mass fraction] 100 % THELMA Santos Work Phone: [facility] 08-12-2023 17:05-0500 Systolic blood pressure 184 mm[Hg] THELMA Santos Work Phone: [facility] 08-02-2023 13:45-0500 Diastolic blood pressure 74 mm[Hg] Forest Christofferson [facility] 08-02-2023 13:45-0500 Mean blood pressure 85 mm[Hg] Forest Christofferson [facility] 08-02-2023 13:45-0500 Systolic blood pressure 108 mm[Hg] Forest Christofferson [facility] 08-02-2023 13:36-0500 Blood Pressure Location Forest Christofferson [facility] 08-02-2023 13:36-0500 Diastolic blood pressure 101 mm[Hg] Forest Christofferson [facility] 08-02-2023 13:36-0500 Heart rate 76 /min Forest Christofferson [facility] 08-02-2023 13:36-0500 SaO2% (BldA) [Mass fraction] 100 % Forest Christofferson [facility] 08-02-2023 13:36-0500 Systolic blood pressure 170 mm[Hg] Forest Christofferson [facility] 06-24-2023 14:30-0500 Body weight 119.3 kg Elly Galicia MD Work Phone: [facility] 06-24-2023 14:30-0500 Diastolic blood pressure 78 mm[Hg] Elly Galicia MD Work Phone: [facility] 06-24-2023 14:30-0500 Heart rate 78 /min Elly Galicia MD Work Phone: [facility] 06-24-2023 14:30-0500 SaO2% (BldA) [Mass fraction] 100 % Elly Galicia MD Work Phone: [facility] 06-24-2023 14:30-0500 Systolic blood pressure 143 mm[Hg] Elly Galicia MD Work Phone: [facility] 05-27-2023 10:40-0400 Body height 162.56 cm Lenora Blades Other [facility] [email or web address] Other 05-27-2023 10:40-0400 Body mass index (BMI) [Ratio] 46.17 kg/m2 Lenora Blades Other [facility] [email or web address] Other 05-27-2023 10:40-0400 Body weight 122.02 kg Lenora Blades Other [facility] [email or web address] Other 03-10-2023 18:05-0400 Diastolic blood pressure 74 mm[Hg] PA-C Lenora Tom Work Phone: [facility] 03-10-2023 18:05-0400 Heart rate 64 /min PA-C Lenora Tom Work Phone: [facility] 03-10-2023 18:05-0400 SaO2% (BldA) [Mass fraction] 100 % PA-C Lenora Tom Work Phone: [facility] 03-10-2023 18:05-0400 Systolic blood pressure 166 mm[Hg] PA-C Lenora Tom Work Phone: [facility] 03-10-2023 16:38-0400 Respiratory rate 18 /min PA-C Lenora Tom Work Phone: [facility] 03-10-2023 14:41-0400 Body height 161.29 cm PA-C Lenora Santos Work Phone: [facility] 03-10-2023 14:41-0400 Body temperature 98.6 [degF] PA-C Lenora Santos Work Phone: [facility] 03-10-2023 14:41-0400 Body weight 120.5 kg PA-C Lenora Santos Work Phone: [facility] 12-15-2021 17:15-0400 Diastolic blood pressure 67 mm[Hg] James Richards [facility] 12-15-2021 17:15-0400 Heart rate 65 /min James Richards [facility] 12-15-2021 17:15-0400 Mean blood pressure 87 mm[Hg] James Richards [facility] 12-15-2021 17:15-0400 Respiratory rate 26 /min James Richards [facility] 12-15-2021 17:15-0400 SaO2% (BldA) [Mass fraction] 100 % James Richards [facility] 12-15-2021 17:15-0400 Systolic blood pressure 128 mm[Hg] James Pastore [facility] 12-15-2021 16:00-0400 Diastolic blood pressure 68 mm[Hg] James Richards [facility] 12-15-2021 16:00-0400 Mean blood pressure 82 mm[Hg] James Pastore [facility] 12-15-2021 16:00-0400 Respiratory rate 11 /min James Richards [facility] 12-15-2021 16:00-0400 Systolic blood pressure 111 mm[Hg] James Richards [facility] 12-15-2021 15:00-0400 Respiratory rate 12 /min James Richards [facility] 12-15-2021 15:00-0400 Systolic blood pressure 126 mm[Hg] James Richards [facility] 12-15-2021 12:49-0400 gluc 100 mg/dL James Richards [facility] 12-15-2021 12:49-0400 gluc James Richards [facility] 12-15-2021 12:45-0400 Body temperature 98.06 [degF] James Richards [facility] 12-15-2021 12:45-0400 Heart rate 66 /min James Richards [facility] 12-15-2021 12:45-0400 Respiratory rate 18 /min James Richards [facility] 10-05-2014 15:47-0500 Blood Pressure Location Lenora TOM [facility] 10-05-2014 15:47-0500 Blood Pressure Location RAJNI MORA [facility] 10-05-2014 15:47-0500 Body temperature 98.06 [degF] Lenora SANTOS [facility] 10-05-2014 15:47-0500 BP/Pulse Patient Position Lenora SANTOS [facility] 10-05-2014 15:47-0500 BP/Pulse Patient Position RAJNI MORA [facility] 10-05-2014 15:47-0500 Diastolic blood pressure 86 mm[Hg] Lenora SANTOS [facility] 10-05-2014 15:47-0500 Heart rate 72 /min Lenora SANTOS [facility] 10-05-2014 15:47-0500 Mean blood pressure 105 mm[Hg] Lenora SANTOS [facility] 10-05-2014 15:47-0500 Respiratory rate 16 /min Lenora SANTOS [facility] 10-05-2014 15:47-0500 SaO2% (BldA) [Mass fraction] 97 % Lenora SANTOS [facility] 10-05-2014 15:47-0500 Systolic blood pressure 142 mm[Hg] Lenoraliyah SANTOS [facility] Encounters Encounter Date Encounter Type Care Provider Facility Start: 05-18-2024 End: 05-18-2024 Bamboo flowsheet Marge Almanza MD Work Phone: [facility] Start: 05-18-2024 End: 05-18-2024 Bamboo flowsheet Marge Almanza MD Work Phone: [facility] Start: 05-18-2024 End: 05-18-2024 ambulatory LENORA SANTOS Not Available Start: 05-18-2024 End: 05-18-2024 Office outpatient new 45 minutes Marge Almanza MD Work Phone: [facility] Comment on above: Type 2 diabetes zachery itus without complication, without long- term current use of insulin ([facility]/HCC) (Primary Dx) Start: 05-18-2024 End: 05-18-2024 ambulatory MARGE ALMANZA Not Available Start: 05-13-2024 End: 05-13-2024 ambulatory PA-C Lenora Santos Work Phone: [facility] Work Phone: Start: 05-13-2024 End: 05-13-2024 Patient encounter procedure PA-C Lenora Santos Work Phone: [facility] Work Phone: Start: 05-07-2024 End: 05-07-2024 Clinisync Result Encounter Generic External Data Provider [facility] Unsolicited Start: 05-07-2024 End: 05-07-2024 Clinisync Result Encounter Generic External Data Provider [facility] External [facility] Unsolicited Start: 05-04-2024 End: 05-04-2024 Patient encounter procedure PA-C Lenora Santos Work Phone: [facility] [place] Work Phone: Start: 05-04-2024 End: 05-04-2024 ambulatory Lenora Santos Facility:[facility] Start: 05-04-2024 End: 05-04-2024 ambulatory PA-C Lenora Santos Work Phone: [facility] Work Phone: Start: 05-04-2024 End: 05-04-2024 Patient encounter procedure PA-C Lenora Santos Work Phone: [facility] Work Phone: Start: 04-30-2024 End: 04-30-2024 Patient encounter procedure PA[facility]C [facility] Work [facility]: Start: 04-30-2024 End: 04-30-2024 ambulatory PA-C Lenora Santos Work Phone: [facility] Work Phone: Start: 04-30-2024 End: 04-30-2024 ambulatory PA-C Lenora Santos Work Phone: [facility] Work Phone: Start: 04-30-2024 End: 04-30-2024 Patient encounter procedure PA-C Lenora Santos Work Phone: [facility] Work Phone: Start: 04-24-2024 End: 04-24-2024 ambulatory PA-C Lenora Santos Work Phone: [facility] Work Phone: Start: 04-24-2024 End: 04-24-2024 Patient encounter procedure PA-C Lenora Santos Work Phone: [facility] Work Phone: Start: 04-16-2024 End: 04-16-2024 ambulatory LENORA SANTOS Not Available Start: 03-30-2024 Non-patient / Non-visit PA-C Lenora Santos Work Phone: [facility] Work Phone: Start: 03-28-2024 End: 03-28-2024 Patient encounter procedure PA-C Lenora Santos Work Phone: [facility] [place] Work Phone: Start: 03-28-2024 End: 03-28-2024 ambulatory PA-C Lenora Santos Work Phone: [facility] Work Phone: Start: 03-24-2024 End: 03-24-2024 ambulatory PA-C Lenora Santos Work Phone: [facility] Work Phone: Start: 03-24-2024 End: 03-24-2024 Patient encounter procedure PA-C Lenora Santos Work Phone: [facility] Work Phone: Start: 03-18-2024 End: 03-18-2024 ambulatory Tamiko Robert Facility:[facility] Start: 03-18-2024 End: 03-18-2024 Pain Management Tamiko Robert [facility] Start: 03-17-2024 End: 03-17-2024 ambulatory PA-C Lenora Santos Work Phone: [facility] Work Phone: Start: 03-17-2024 End: 03-17-2024 Patient encounter procedure MEHRAN-Regina Santos Work Phone: [facility] Work Phone: Start: 03-06-2024 End: 03-06-2024 Patient encounter procedure MEHRAN-Regina Santos Work Phone: [facility] [place] Work Phone: Start: 03-06-2024 End: 03-06-2024 ambulatory PA-C Lenora Santos Work Phone: [facility] Work Phone: Start: 03-03-2024 End: 03-03-2024 ambulatory Hu Davis Facility:[facility] Start: 03-03-2024 End: 03-03-2024 Pain Management Hu Davis [facility] Start: 01-29-2024 End: 01-29-2024 ambulatory Tamiko Robert Facility:[facility] Start: 01-29-2024 End: 01-29-2024 Pain Management Tamiko Robert [facility] Start: 12-24-2023 End: 12-24-2023 ambulatory PA-C Lenora Santos Work Phone: [facility] Work Phone: Start: 12-24-2023 End: 12-24-2023 Patient encounter procedure THELMA Santos Work Phone: [facility] Work Phone: Start: 12-06-2023 End: 12-06-2023 Admission to same day surgery center THELMA Santos Work Phone: [facility] [place] Work Phone: Start: 12-06-2023 End: 12-06-2023 ambulatory THELMA Santos Work Phone: [facility] Work Phone: Start: 12-05-2023 End: 12-05-2023 ambulatory LENORA SANTOS Not Available Start: 11-11-2023 End: 11-11-2023 ambulatory ALFREDO CRUZ Facility:[facility] Start: 11-11-2023 End: 11-11-2023 Patient encounter procedure Alfredo Cruz MD Work Phone: Endocrinology Comment on above: Class 3 severe obesi ty with serious comorbidity and body mass index (BMI) of 40.0 to 44.9 in adult, unspecified obesity type (HCC) (Primary Dx) Start: 11-07-2023 End: 11-07-2023 ambulatory LENORA SANTOS Not Available Start: 10-30-2023 End: 10-30-2023 ambulatory Hu Davis Facility:[facility] Start: 10-30-2023 End: 10-30-2023 Pain Management Hu Davis [facility] Start: 10-24-2023 End: 10-24-2023 Patient encounter procedure THELMA Santos Work Phone: [facility] [address] Work Phone: Start: 10-24-2023 End: 10-24-2023 ambulatory THELMA Cervantesmers Work Phone: [facility] Work Phone: Start: 10-18-2023 End: 10-18-2023 ambulatory PA-C Lenora Santos Work Phone: [facility] Work Phone: Start: 10-18-2023 End: 10-18-2023 Patient encounter procedure PA-C Lenora Santos Work Phone: [facility] Work Phone: Start: 10-17-2023 End: 10-17-2023 ambulatory DO Hu Davis Facility:[facility] Start: 10-17-2023 End: 10-17-2023 Pain Management Hu Davis [facility] Start: 10-15-2023 End: 10-16-2023 Pre-admission assessment Lenora SANTOS [facility] Start: 10-04-2023 End: 10-04-2023 ambulatory LENORA SANTOS Not Available Start: 09-30-2023 End: 09-30-2023 ambulatory LENORA SANTOS Not Available Start: 09-28-2023 End: 09-28-2023 Emergency department patient visit Cody Young [facility] Start: 09-25-2023 End: 09-25-2023 ambulatory PA-C Lenora Santos Work Phone: [facility] Work Phone: Comment on above: [employer] [facility] Start: 09-25-2023 Non-patient / Non-visit PA-C Lenora Santos Work Phone: [facility] Work Phone: Start: 09-25-2023 End: 09-25-2023 Patient encounter procedure THELMA Santos Work Phone: [facility] Work Phone: Start: 09-24-2023 End: 09-24-2023 ambulatory NELI SLATER Facility:[facility] Start: 09-24-2023 End: 09-24-2023 Patient encounter procedure Alfredo Cruz MD Work Phone: Endocrinology Comment on above: Class 3 severe obesi ty with serious comorbidity and body mass index (BMI) of 40.0 to 44.9 in adult, unspecified obesity type (HCC) Start: 09-20-2023 End: 09-20-2023 ambulatory LENORA SANTOS Not Available Start: 09-19-2023 End: 09-19-2023 ambulatory THELMA Santos Work Phone: [facility] Work Phone: Start: 09-19-2023 End: 09-19-2023 Patient encounter procedure THELMA Santos Work Phone: [facility] Work Phone: Start: 09-18-2023 Refill Lenora forte PA Work Phone: [facility] Comment on above: Primary insomnia Start: 09-12-2023 End: 09-12-2023 ambulatory XXXX NONE Facility:[facility] Start: 09-12-2023 End: 09-12-2023 Patient encounter procedure Forest Gonzalez [facility] Start: 09-09-2023 Chart abstracting Lenora LAURENT Work Phone: [facility] Start: 08-30-2023 End: 08-30-2023 ambulatory Lenora SANTOS Facility:[facility] Start: 08-30-2023 End: 08-30-2023 Patient encounter procedure Lenora SANTOS [facility] Start: 08-15-2023 End: 09-17-2023 Pre-admission assessment Hu Davis [facility] Start: 08-13-2023 End: 08-13-2023 ambulatory LENORA SANTOS Not Available Start: 08-13-2023 End: 08-13-2023 ambulatory Forest Gonzalez Facility:[facility] Start: 08-13-2023 End: 08-13-2023 Patient encounter procedure Forest Gonzalez [facility] Start: 08-12-2023 End: 08-12-2023 Emergency department patient visit THELMA Santos Work Phone: [facility] Work Phone: Start: 08-12-2023 End: 08-12-2023 Emergency department patient visit James Richards Facility:[facility] Start: 08-09-2023 End: 08-09-2023 ambulatory LENORA SANTOS Not Available Start: 08-02-2023 End: 08-02-2023 ambulatory Lenora SANTOS Facility:[facility] Start: 08-02-2023 End: 08-02-2023 Patient encounter procedure Forest Gonzalze [facility] Start: 06-24-2023 End: 06-25-2023 ambulatory NELI SLATER Facility:[facility] Start: 06-24-2023 End: 06-24-2023 Patient encounter procedure Elly Galicia MD Work Phone: Endocrinology Comment on above: Acquired hypothyroid ism (Primary Dx); Class 3 severe obesity with serious comorbidity and body mass index (BMI) of 40.0 to 44.9 in adult, unspecified obesity type (HCC) Start: 06-21-2023 ambulatory Lenora SANTOS Facil ity:[facility] Start: 05-27-2023 End: 05-27-2023 ambulatory Lenora Nicolevirgen [facility] [email or web address] Other Start: 05-27-2023 Office outpatient ne w 45 minutes Lenora Blades [facility] Neurosurgery Start: 05-14-2023 End: 05-14-2023 ambulatory NEEHARIKA NANDAM Facility:[facility] Start: 05-06-2023 End: 05-07-2023 ambulatory NEEHARIKA NANDAM Facility:[facility] Start: 04-05-2023 End: 04-05-2023 ambulatory Juan VelazquezGorge Bennett Facility:[facility] Start: 04-05-2023 End: 04-05-2023 Patient encounter procedure Russellmukesh Norrisd [facility] Start: 03-10-2023 End: 03-10-2023 Emergency department patient visit THELMA Santos Work Phone: [facility] Work Phone: Start: 01-16-2023 End: 01-16-2023 Patient encounter procedure Lenora SANTOS [facility] Start: 10-10-2022 End: 10-10-2022 Patient encounter procedure Juan Ayesha Norrisd [facility] Start: 03-29-2022 End: 05-01-2022 Pre-admission assessment Jose L TRIPP [facility] Start: 03-28-2022 End: 03-28-2022 Patient encounter procedure RAJNI MORA [facility] Start: 12-15-2021 End: 12-15-2021 Emergency department patient visit James Richards [facility] Start: 12-14-2021 End: 12-14-2021 Patient encounter procedure Lenora J TOM [facility] Start: 09-11-2019 End: 09-12-2019 Patient encounter procedure MATTHEW Liyah RIVER Facility:[facility]1 Procedures Date Procedure Procedure Detail Performing Clinician Start: 05-07-2024 ALL CBC WITH AUTO DIFF Generic External Data Provider Start: 03-03-2024 Epidural injection o f lumbar spine using fluoroscopic guidance [employer] Comment on above: 100% relief left, 70 % relief right Start: 12-06-2023 Needle biopsy PA-C Sheyla wong Tom Work Phone: Start: 10-30-2023 Injection of nerve r oot of lumbar spine using fluoroscopic guidance [employer] Comment on above: right L5-S1 90% reli ef up until 2 weeks ago Start: 10-24-2023 X-ray of right knee PA- C Lenora Tom Work Phone: Start: 09-25-2023 Ultrasound elastogra phy of liver PA-C Lenora Tom Work Phone: Start: 09-25-2023 Ultrasonography of liver PA-C Lenorakelsey Santos Work Phone: Start: 08-30-2023 Mammography Generic Pr ovider Start: 03-10-2023 CT of head without contrast PA-C Lenorakelsey Santos Work Phone: Start: 03-10-2023 Plain chest X-ray PA-C Lenora Tom Work Phone: Start: 12-14-2021 Mammography Lenora So mmers PA Work Phone: Start: 06-22-2020 Arthroscopy of shoulder Lenora SANTOS Start: 12-24-2018 Arthroscopy of knee Corinne SANTOS Comment on above: right knee Start: 07-22-2017 Laminectomy Lenora EWING Comment on above: L4-L5 Start: 07-25-2015 Colonoscopy Lenora Huerta xunavneet PA Work Phone: Start: 10-08-2014 left extracorporeal shockwave lithotripsy Lenora SANTOS Start: 10-05-2014 cystoscopy, left retrograde ureteropyelogram, and double-J stent insertion Lenora SANTOS Start: 04-09-2014 robotic-assisted hysterectomy with bilateral salpingectomy Lenora SANTOS Start: 12-30-2009 right foot surgery 3 De kat SANTOS Comment on above: x3 ankle Start: 12-30-2009 right foot surgery 4 Am isabel Joroto Comment on above: x3 ankle Start: 12-30-2009 right foot surgery 5 Am isabel Joroto Comment on above: x3 ankle Appendectomy Lenora SANTOS Comment on above: right ovary removed Arthroscopy of shoulder Sheyla liyah SANTOS Bilateral tubal ligation Corinne kelsey SANTOS Cholecystectomy Lenorakelsey CERVANTESMukesh FORTE Laboratory test resu lt abnormal Abnormal laboratory test THELMA Sunkelsey Santos Work Phone: Repair of ligament Lenora HOFFMAN Comment on above: right foot - mediall y Plan of Treatment Date Care Activity Detail Author Start: 09-24-2026 [facility] Start: 05-06-2026 Diabetes Screening [facility] Start: 07-25-2025 Screening for malign ant neoplasm of colon [facility] Start: 08-30-2024 Screening for malign ant neoplasm of breast Mammogram [facility] Start: 05-19-2024 End: 05-19-2024 Patient encounter procedure 05/19/2024 8:00 AM EDT Office Visit [facility] [address] [place] [address] Lenora Santos PA [address] [place] [address] [facility] Start: 05-18-2024 End: 05-18-2024 Patient encounter procedure [facility] Comment on above: Arrived Start: 05-04-2024 [facility] Start: 04-05-2024 Influenza vaccination Influenza Vacc ine (#1) [facility] Start: 12-24-2023 Patient referral [facility] Work Phone: Start: 12-06-2023 [facility] Start: 12-06-2023 CT guided biopsy [facility] Start: 12-06-[address] guided biopsy [facility] Start: 09-25-2023 [facility] Start: 09-25-2023 Actin smooth muscle IgG Ab [Units/volume] in Serum [facility] Start: 09-25-2023 Cefuroxime free [Mass/volume] in Serum or Plasma [facility] Start: 09-25-2023 Ceruloplasmin [Mass/volume] in Serum or Plasma [facility] Start: 09-25-2023 Hepatitis B core ant ibody measurement [facility] Start: 09-25-2023 Hepatitis B virus marshall rface Ab [Presence] in Serum [facility] Start: 09-25-2023 [facility] Start: 09-25-2023 Ultrasonography of liver US liver [facility] Start: 09-25-2023 US Liver [facility] Start: 09-24-2023 End: 12-24-2023 Comprehensive metabolic 2000 panel - Serum or Plasma [facility] Work Phone: Comment on above: Expected: 09/24/2023 , Expires: 12/24/2023 Start: 09-09-2023 End: 09-09-2023 Patient encounter procedure 09/09/2023 8:30 AM EST Office Visit BRIGIDA ALMARAZ [address] [place] [id number] Lenora Santos PA [address] [place] [address] [facility] ALMARAZ Start: 08-05-2023 Behavioral Health Screening Behavioral Health Screening [facility] Start: 08-05-2023 [facility] Start: 06-24-2023 End: 09-23-2023 Thyrotropin [Units/volume] in Serum or Plasma [facility] Work Phone: Comment on above: Expected: 06/24/2023 , Expires: 09/23/2023 Start: 06-24-2023 End: 09-23-2023 Thyroxine (T4) free [Mass/volume] in Serum or Plasma [facility] Work Phone: Comment on above: Expected: 06/24/2023 , Expires: 09/23/2023 Start: 04-05-2023 Covid-19 Vaccine () Covid-19 Vaccine () [facility] Start: 12-14-2022 Screening for malign ant neoplasm of breast [facility] Start: 08-05-2022 Depression Assessment [facility] Start: 05-01-2022 Urine microalbumin profile DTaP,Tdap,Td Vaccine (2 - Td or Tdap) [facility] Start: 2019 Shingrix Vaccine (1 of 2) Joaquin grix Vaccine (1 of 2) [facility] Start: 2014 Cologuard (FIT-DNA) Cologuard (FIT-D NA) [facility] Start: 2014 Colonoscopy Colonoscopy [facility] Start: 2014 Colorectal Cancer Screening Colorectal Cancer Screening [facility] Start: [address] Colonography [facility] Start: 2014 Fecal Occult Blood Fecal Occult Bloo d [facility] Start: 2014 Lipid 1996 panel - S nusrat or Plasma Lipid Screening [facility] Start: 2014 Lipid panel [facility] Start: 2014 Screening for malign ant neoplasm of colon [facility] Start: 2014 Sigmoidoscopy Sigmoidoscopy [facility] Start: 2009 Mammography Mammogram Screening [facility] Start: 1999 HPV Testing HPV Testing [facility] Start: 1999 Screening for malign ant neoplasm of cervix [facility] Start: 1990 Pap Testing Pap Testing [facility] Start: 1990 Screening for malign ant neoplasm of cervix [facility] Start: 1988 Hepatitis B Vaccine (1 of 3 - 19+ 3-dose series) Hepatitis B Vaccine (1 of 3 - 19+ 3-dose series) [facility] Start: 1987 Annual PCP 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 gideon Disease Visit Annual PCP Team Chronic Disease Visit [facility] Start: 1987 BP Controlled (<130/80) BP Controlle d (<130/80) [facility] Start: 1987 Hepatitis C Screening Hepatitis C [facility] Start: 1987 Hepatitis C screening Hepatitis C [facility] Start: 1987 HIV Screening HIV Screening [facility] Start: 1987 HIV screening HIV Screening [facility] Start: 1969 Hepatitis B Vaccine (1 of 3 - 3-dose series) Hepatitis B Vaccine (1 of 3 - 3-dose series) [facility] Start: 1969 Screening for malign ant neoplasm of colon [facility] Actin smooth muscle IgG Ab [Units/volume] in Serum [facility] Albumin/Globulin ratio [facility] Alpha 1 antitrypsin [Mass/volume] in Serum or Plasma [facility] Alpha 1 antitrypsin [Mass/volume] in Serum or Plasma [facility] Alpha 1 antitrypsin phenotyping [Identifier] in Serum or Plasma by Immunofixation [facility] Anion gap measurement [facility] Cefuroxime free [Mass/volume] in Serum or Plasma [facility] Ceruloplasmin [Mass/volume] in Serum or Plasma [facility] CT guided biopsy [facility] Globulin [Mass/volum e] in Serum [facility] Glucose [Mass/volume ] in Serum or Plasma --2 hours post 75 g glucose PO [facility] Hepatic function panel [facility] Hepatitis B core ant ibody measurement [facility] Hepatitis B virus marshall rface Ab [Presence] in Serum [facility] Hepatitis B virus marshall rface Ag [Presence] in Serum or Plasma by Immunoassay [facility] Hepatitis C virus Ig G Ab [Presence] in Serum or Plasma by Immunoassay [facility] Microalbumin/Creatin ine [Mass Ratio] in Urine [facility] Patient Education [facility] Work Phone: Patient referral [facility] Work Phone: US Liver [facility] Immunizations Immunization Date Immunization Notes Care Provider [facility] 04-30-2023 influenza, injectabl e, quadrivalent, contains preservative Lenora LAURENT Work Phone: [facility] 04-30-2023 influenza virus vaccine, unspecified formulation Generic Provider [facility] 05-14-2022 influenza, injectabl e, quadrivalent, preservative free Lenora LAURENT Work Phone: [facility] 05-14-2022 Moderna Bivalent Booster Vaccination Lenora LAURENT Work Phone: [facility] 07-05-2021 Moderna SARS-CoV-2 Booster Vaccination Lenora LAURENT Work Phone: [facility] 06-08-2021 influenza, injectabl e, quadrivalent, contains preservative Lenora LAURENT Work Phone: [facility] 11-18-2020 COVID-19, mRNA, LNP- S, PF, 30 mcg/0.3 mL dose; Translations: [[employer] COVID-19 Vaccine] Lenora SANTOS [facility] Comment on above: Reason for Medicatio n: Prophylaxis 10-21-2020 COVID-19, mRNA, LNP- S, PF, 30 mcg/0.3 mL dose; Translations: [[employer] COVID-19 Vaccine] Lenora SANTOS [facility] Comment on above: Reason for Medicatio n: Prophylaxis 05-13-2020 influenza, injectabl e, quadrivalent, preservative free Lenora Tom PA Work Phone: [facility] 05-13-2020 Seasonal, quadrivale nt, recombinant, injectable influenza vaccine, preservative free Lenora Tom PA Work Phone: [facility] 04-30-2019 influenza virus vaccine, unspecified formulation Lenora TOM [facility] 04-30-2019 influenza, injectabl e, quadrivalent, preservative free Lenora Tom PA Work Phone: [facility] 05-20-2018 Influenza, injectabl e, Madin Carmen Canine Kidney, preservative free, quadrivalent Lenora Tom PA Work Phone: [facility] 05-05-2018 influenza, injectabl e, quadrivalent, preservative free Lenora Tom PA Work Phone: [facility] 06-07-2017 influenza, injectabl e, quadrivalent, preservative free Lenora Tom PA Work Phone: [facility] 05-29-2016 influenza, injectabl e, quadrivalent, preservative free Lenora Tom PA Work Phone: [facility] 05-26-2015 influenza, seasonal, injectable Lenora Tom PA Work Phone: [facility] 05-01-2012 tetanus toxoid, redu meng diphtheria toxoid, and acellular pertussis vaccine, adsorbed Lenora TOM [facility] Comment on above: Early/Late Reason: N ursing Judgment 07-21-2009 novel [id number], preservative-free, injectable Lenora LAURENT Work Phone: [facility] Payers Date Payer Category Payer [facility] [id number] 2023 Unknown [id number]. [id number] 2023 Unknown [id number] 2023 Private Health Insurance [id number] 2023 Self-pay [id number] 2022 Private Health Insurance [id number]. [id number] 2022 Private Health Insurance [id number] 1969 Unknown [id number] 2.16.840.1.826052.3.579.2. 593 1969 Unknown [id number] 2.16.840.1.424758.3.579.2. 727 1969 Unknown [id number] 2.16.840.1.672310.3.579.2 1969 Unknown [id number] 2.16.840.1.293453.3.579.2 1969 Unknown [id number] 2.16.840.1.968057.3.579.2 1969 Unknown [id number] 2.16.840.1.962970.3.579.2 1969 Unknown [id number] 2.16.840.1.299265.3.579. 1969 Unknown [id number] 2.16.840.1.541081.3.579. 1969 Unknown [id number] 2.16.840.1.118169.3.579. 1969 Unknown [id number] 2.16.840.1.078675.3.579.2 1969 Unknown [id number] 2.16.840.1.281140.3.579.2 1969 Unknown [id number] 2.16.840.1.587919.3.579.2 1969 Unknown [id number] 2.16.840.1.759182.3.579.2 1969 Unknown [id number] 2.16.840.1.496794.3.579.2 1969 Unknown [id number] 2.16.840.1.206123.3.579.21258 1969 Unknown [id number] 2.16.840.1.095423.3.579.21258 1969 Unknown [id number] 2.16.840.1.146108.3.579.21258 1969 Unknown [id number] 2.16.840.1.063450.3.579.21258 1969 Unknown [id number] 2.16.840.1.427739.3.579.2. 1258 1969 Unknown [id number] 2.16.840.1.913628.3.579.2. 1258 1969 Unknown [id number] 2.16.840.1.432589.3.579.2. 1258 1969 Unknown [id number] 2.16.840.1.227187.3.579.2. 1258 1969 Unknown [id number] 2.16.840.1.392546.3.579.2. 1258 1969 Unknown [id number] 2.16.840.1.660172.3.579.2. 9 1959 Unknown [id number] Unknown MMO [id number] Unknown [id number] 2.16.840.1.186503.3.579.2. 531 Unknown [id number] 2.16.840.1.179376.3.579.2. 531 Unknown [id number] 2.16.840.1.689011.3.579.2. 531 Unknown [id number] 2.16.840.1.382917.3.579.2. 531 Unknown [id number] 2.16.840.1.733229.3.579.2. 531 Unknown [id number] 2.16.840.1.551387.3.579.2. 531 Unknown [id number] 2.16.840.1.486164.3.579.2. 531 Unknown [id number] 2.16.840.1.808112.3.579.2. 531 Unknown [id number] 2.16.840.1.030990.3.579.2. 531 Social History Date Type Detail Facility Start: 09-08-2019 End: 01-04-2023 Tobacco smoking status Never smoked tobacco (finding) [facility] Tobacco smoking status Never [facility] Start: 06-24-2023 End: 04-14-2024 Sex Assigned At Female Estevan Burton [facility] Start: 1970 Sex Assigned At Female F [facility] Start: 06-24-2023 End: 11-11-2023 Alcohol intake Current drinker of alcohol (finding) [facility] Start: 06-24-2023 End: 04-14-2024 History of Social function [facility] Start: 04-12-2011 Alcohol Comment [facility] Start: 1970 Sex Assigned At Not on file [facility] Start: 01-04-2023 Tobacco use and exposure Smokeless tobacco non-user [facility] Start: 08-13-2023 End: 05-18-2024 Alcohol intake Lifetime non-drinker (finding) [facility] Within the last year [...] [OSQ] Very much [facility] (I/We) worried whecarlito er (my/our) food would run out before (I/we) got money to buy more. Never true [facility] Start: 04-30-2023 Alcohol Comment caffeine intak e: 3-4 cups per day [facility] Do you feel stress - tense, restless, nervous, or anxious, or unable to sleep at night because your mind is troubled all the time - these days [OSQ] To some extent [facility] Medical Equipment Procedure Code Equipment [...] 07-22-2017 NUVASIVE RELINE SET SCREW FDA Start: 12-18-2017 RELINE NUVASIVE MAXWELL FDA Start : 07-22-2017 [...] Assessment Result Facility 03-18-2024 Functional Status N/A [facility] 03-06-2024 Fibrosis score Enhanced Liver Fibrosis Score 10.94 [facility] Comment on above: ELF(TM) Score Interp retation:Risk cut-offs to assess the likelihood of progressionto cirrhosis and liver-related clinical events within3.9 years following baseline ELF score (IQR: 14.0-22.4months)*: Lower risk < 9.80 Mid risk 9.80 - 11.29 Higher risk >11.29Note: The ELF(TM) Score is a unitless numerical value.*Alexy SA, Alexandro FRIAS, Duong T, et al. Selonsertibfor patients with bridging fibrosis or compensatedcirrhosis due to MANRIQUEZ: Results from randomized phaseIII STELLAR trials. J Hepatol. 2020 Feb;73(1):26-39.Performed at: [address] [id number] Director: Leyla Britt MD, Phone: [phone] 01-29-2024 Functional Status N/A [facility] 10-30-2023 Functional Status N/A [facility] 10-17-2023 Functional Status N/A [facility] 09-28-2023 Functional Status N/A [facility] 09-12-2023 Functional Status No [facility] 08-02-2023 Functional Status No [facility] 03-28-2022 Functional Status N/A [facility] Clinical Notes 12-15-2021 to 05-18-2024 BRITTANY Hernandez - 05/18/2024 8:45 AM EDTMarge Almanza MD - 05/18/2024 8:45 AM EDT Note Date & Type Note Facility 05-18-2024 History of Presen t illness Narrative Images from the original note were not included. Assessment/Plan Assessment/Plan Diabetes Mellitus without sign of diabetic retinopathy on dilated retinal examination today OU: Discussed the pathophysiology of diabetes and its effect on the eye. Stressed the importance of strong glucose control. Advised of importance of at least yearly dilated examinations, but to contact us immediately for any problems or concerns. documented in this encounter [facility] 03-18-2024 Evaluation + Plan note Extrac toya [...] anything from our services. DIMPLE score: 40%. [facility] 08-14-2024 NoteConsultation Note Patient: DEJAH DYKES Age: [...] Insomnia, # 30 tab(s), Refills(s) 1, Pharmacy: [facility]/pharmacy #[id number], 161, cm, 09/08/19 14:29:00 EST, Height/Length Measured, 110.5, kg, 09/08/19 14:29:00 EST, Weight Measured Estrace 0.1 mg/g Cream: See Instructions, 42.5 gm, Refill(s) 5, insert 1gm vaginally & apply pea sized amount around the urethra nightly x 3 weeks, then 3x per week thereafter, [facility]/pharmacy #[id number], 162.5, cm, 04/24/22 15:43:00 EDT, Height/Length Dosing, 105, kg, 03/28/22 9:0... Ziac 5 mg-6.25 mg oral tablet: 1 tab(s), Oral, Daily, 90 tab(s), Refill(s) 1, [facility]/pharmacy #[id number] minocycline 100 mg Cap: 100 mg, Oral, Daily, # 100 cap(s), Refills(s) 1, Pharmacy: [facility]/pharmacy #[id number] Documented Medications Documented [...] Problems Lumbar disc herniation / SNOMED CT 576135543 / Confirmed L4-5 fusion Allergic rhinitis, seasonal / SNOMED CT 577178014 / Confirmed H/O: HTN (hypertension) / SNOMED CT 575945007 / Confirmed Depression / SNOMED CT 323560239 / Confirmed Fatty liver / SNOMED CT 917846934 / Confirmed Acne rosacea / SNOMED CT 6111937155 / Confirmed 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 / Confirmed Class 3 severe obesity with body mass index (BMI) of 40.0 to 44.9 in adult / SNOMED CT 1940097867 /Confirmed Non-tobacco user / SNOMED CT 674337194 / Confirmed Influenza vaccination up to date / SNOMED CT 340019829 / Confirmed Urine frequency / SNOMED CT 037382180 / Confirmed Kidney stones / SNOMED CT 300879346 / Confirmed Frequent UTI / SNOMED CT 801377774 / Confirmed Resolved: DVT / SNOMED CT 428017321 Resolved: Kidney stones / SNOMED CT 646OW861-[id number] Objective Vital Signs 03/18/2024 8:17 EDT Peripheral [...] limited range of motion Integumentary: Warm, Dry, Dawson. Neurologic: Alert, Oriented. Psychiatric: Cooperative, Appropriate mood [...] are maintained. Intraosseous hemangio (more content not included)...[facility]Result Comment: Electronically Signed By: Tamiko Robert PA-C\.br\Date and Time Signed: 03/18/24 08:39 [id number] Evaluation note* Author Tank Xavier [facility] Authored March 17, 2024 10 :13am Assessment: [...] effects. 3. Prediabetes with recent A1c of 6.9-lgsxv-grme treatment with long-term healthy lifestyle change, decreased [...] sleep hygiene and weight loss also. 7. QXBC-rizqhz-sdnzof. Sent here by GI. 8. Kriss's thyroiditis [...] Our exercise program was recommended with our elephant tamer/obesity exercise group. Handout given. Our free weekly [...] and benefits of prescribed meds discussed. Initial uiqe-gh-feez interview/evaluation. The patient was counseled in detail on the options for weight loss in an individual setting. 69 minutes was spent caring for the patient, counseling/educating patient on the options for the treatment of obesity and related healthcare issues. The program's treatment goals were reviewed with the patient. Each aspect of the program was discussed with the patient. [facility] Work Phone: [phone]) 955-729508-13-2024 Evaluation note* Author Tank Xavier [facility] Authored March 17, 2024 10 :13am Assessment: [...] unfortunately be having to have ankle surgery Haylie 9. I offered her our water aerobics recommendations [...] effects. 3. Prediabetes with recent A1c of 6.0-bestu-awmo treatment with long-term healthy lifestyle change, decreased [...] sleep hygiene and weight loss also. 7. GTXG-kwrmeg-hektan. Sent here by GI. 8. Kriss's thyroiditis [...] Our exercise program was recommended with our elephant tamer/obesity exercise group. Handout given. Our free weekly [...] and benefits of prescribed meds discussed. Initial pzvo-pj-blbx interview/evaluation. The patient was counseled in detail on the options for weight loss in an individual setting. 69 minutes was spent caring for the patient, counseling/educating patient on the options for the treatment of obesity and related healthcare issues. The program's treatment goals were reviewed with the patient. Each aspect of the program was discussed with the patient. Author Sofiyamassimo Jacobson [facility] Authored April 24, 2024 9:59am Highest weight: [...] effects. 3. Prediabetes with recent A1c of 6.3-azixt-opvx treatment with long-term healthy lifestyle change, decreased [...] sleep hygiene and weight loss also. 7. EZGB-nfvgar-bvvbqw. Sent here by GI. 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 9. Kidney stones-will try to avoid Topamax. Increase water intake. Stop Pepsi. Follow up with me in 6 weeks. New labs needed: Up-to-date except for going to do a 2-hour glucose tolerance test off metformin. [facility] Work Phone: 1(282) 428-761108-13-2024 Evaluation note* Author Tank Xavier [facility] Authored March 17, 2024 10 :13am Assessment: [...] effects. 3. Prediabetes with recent A1c of 6.3-ddigs-rhtd treatment with long-term healthy lifestyle change, decreased [...] sleep hygiene and weight loss also. 7. UEDN-zubpdx-qtnrax. Sent here by GI. 8. Kriss's thyroiditis [...] Our exercise program was recommended with our elephant tamer/obesity exercise group. Handout given. Our free weekly [...] and benefits of prescribed meds discussed. Initial egbs-dk-fjvg interview/evaluation. The patient was counseled in detail on the options for weight loss in an individual setting. 69 minutes was spent caring for the patient, counseling/educating patient on the options for the treatment of obesity and related healthcare issues. The program's treatment goals were reviewed with the patient. Each aspect of the program was discussed with the patient. Author Tank Xavier [facility] Authored April 24, 2024 11:27am Highest weight: [...] back. She is working closely with the tmr teacher. She has a new diagnosis of type [...] test of 242 with recent A1c of 6.9-gdvwf-hipa treatment with long-term healthy lifestyle change, decreased [...] sleep hygiene and weight loss also. 7. KROQ-brysdp-xodkiw. Sent here by GI. 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 9. Kidney stones-will try to avoid Topamax. Increase water intake. Stop Pepsi. Follow up with me in 6 weeks. New labs needed: Up-to-date. She will need an A1c again in 3 months after following the program. She needs at least yearly metabolic blood work. [facility] Work Phone: 1(794) 684-810707-30-2024 NoteOperative Report Diagnosis: M54.16, lumbar radiculopathy Procedure: [...] and agrees to comply to currently prescribed/recommended therapies.[facility] Comment on above:Result Comment: Electronically Signed By: Hu Davis DO\.br\Date and Time Signed: 03/03/24 14:58 [id number] Evaluation + Plan note Extracted from: Title:Bilateral [...] Date:03/18/2024 08:15:00 AM Scheduled Provider:Tamiko Robert PA-C Location:.[facility] Appointment Type:Pain Management - Follow Up (FT) [facility] 06-26-2024 Evaluation + Plan noteExtracted from: Title:Pain [...] clinic sooner if necessary. DIMPLE score: 42%. [facility]05-21-2024 Evaluation note* Author jaspreet [facility] Authored December 24, 2023 1:52p m 53-year-old [...] Resmetirom and follow-up with insurance regarding approval [facility] Work Phone: 1(974) 486-413505-21-2024 Evaluation note* Author Kamilah Ward [facility] Authored December 24, 2023 1:52p m 53-year-old [...] with insurance regarding approval Author Sofiya Jacobson [facility] Authored March 17, 2024 9: 11am Assessment: [...] Our exercise program was recommended with our elephant tamer/obesity exercise group. Handout given. Our free weekly [...] and benefits of prescribed meds discussed. Initial ltnh-ew-jsai interview/evaluation. The patient was counseled in detail on the options for weight loss in an individual setting. [ ] minutes was spent caring for the patient, counseling/educating patient on the options for the treatment of obesity and related healthcare issues. The program's treatment goals were reviewed with the patient. Each aspect of the program was discussed with the patient. [facility] Work Phone: 1(700) 779-263004-08-2024 NoteHNO ID: [id number] Author: ALFREDO CRUZ MD Service: ? 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 Registration to the weight loss program will also be done online. [email or web address] Alternatively, to schedule appointment, please call [phone] Order Specific Question: Have you discussed weight management with your patient? Answer: Yes Order Specific Question: Are you requesting assessment for possible Bariatric Surgery for your patient? Answer: Yes Order Specific Question: Does consulting provider have [facility] Epic access? 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 Registration to the weight loss program will also be done online. [email or web address] Alternatively, to schedule appointment, please call [phone] Order Specific Question: Have you discussed weight management with your patient? Answer: Yes Order Specific Question: Are you requesting assessment for possible Bariatric Surgery for your patient? Answer: Yes Order Specific Question: Does consulting provider have [facility] Epic access? Answer: Yes Follow up PRN Signed: Alfredo Cruz MD Endocrinology and Metabolism [facility] Instructions* Patient Instructions* Alfredo Cruz MD - 11/11/2023 9:20 AM EDT Images from the original note were not included. BARIATRIC REFERRAL The first step for considering bariatric (weight loss) surgery at [facility] is to watch the online seminar on the following website. Registration to the weight loss program will also be done online. [email or web address] Links: https://pages.[facility].[email or web address]/tnzuszsps-tpxtce-oqdp-program.html?_gl=1*1ly7e l6*_ga*SqObIvS8PYEqQ n4uRlP6Htv9VQz3*_ga_HWJ092SPKP*PViqJND5NaW2UU4uJkOqAOibVZP2StU3XS1aVuQcLN.. https://www.ParaEngine.net/pp_l318/IdouYdaomRwpRrbx663.asp?V=2175_Bariatric s_Full_Show_FINAL.mp4 Bariatric Service Information Session Registration: https://www.[employer].net/pp_l318/DzkokndUhjxxpVkeeoirkzqob950.asp?_ga=1.2 72239619.948229597.1 350403982&_gl=1*5xb2xi0*_ga*HnBoLmW8LETaVz7nXjZ7Eui9SZh4*_ga_HWJ092SPKP*MTcwNDM3 YjN5XE5pSfNoDFcgPME7JbE8ER7aFmVhBJ.. Alternatively, to schedule appointment, please call [phone] Link: [email or web address]/-/scassets/files/org/bariatric/guides/bmi-twyla- xdv1310-sjj.ashx?la=en documented [facility] Evaluation + Plan note Extracted from: [...] Date:12/19/2023 03:15:00 PM Scheduled Provider:Hu Davis DO Location:.[facility] Appointment Type:Pain Management - Follow Up (FT) [facility]03-27-2024 Note [id number]#1.00TIFSidney [facility] 10-30-2023 NoteDiagnosis: M54.16, lumbar radiculopathy [...] and agrees to comply to currently prescribed/recommended therapies.[facility] Comment on above:Result Comment: Electronically Signed By: Hu Davis DO\.br\Date and Time Signed: 10/30/23 11:29 [id number] Evaluation + Plan note Extracted from: Title:chronic [...] for this as well as has a automation consultant and is working on possibility of autoimmune [...] daily, we also encouraged follow-up with her automation consultant to discuss possibility of any autoimmune reasons [...] with any questions or concerns that arise. [facility]03-12-2024 NotePt cancelled PT evaluation in the remind system today. Chart was prepped for this evaluation.[facility]02-24-2024 Hospital Discharge instructions Patient Education 09/28/2023 [...] managed at home with rest, fluids, and gius-obb-nosoqfy medicines. Serious symptoms may be treated in [...] water are not available, use alcohol-based hand quality control inspector heading. Make sure that all people in your [...] managed at home with rest, fluids, and obob-lml-mjlfcaw medicines. This information is not intended to replace advice given to you by your health care provider. Make sure you discuss any questions you have with your health care provider. Document Revised: 07/12/2022 Document Reviewed: 07/12/2022 [employer] Patient Education 2022 [employer]ax. Follow Up Care 09/28/2023 14:45:50 With:TOM RENEE, RADHA Gaxiola Address: [address] [place] [address] ARIANA [place] [address]- When:10/01/[address] [facility]02-24-2024 NoteInfectious Disease COVID-19 COVID-19, or coronavirus disease [...] managed at home with rest, fluids, and zfvo-eie-yipgyxj medicines. ? Serious symptoms may be treated [...] condition. ? You should (more content not included)...[facility]02-24-2024 Evaluation + Plan noteExtracted from: Title:ED Note Author:Eric RENEE, Lara Henry ate:09/28/23 1. COVID (U07.1: COVID-19) Orders: ketorolac, 30 mg = 1 mL, Injection, IntraMuscular, Once, Stop date 09/28/23 15:36:00 EST, STAT, Start date 09/28/23 15:36:00 EST, 09/28/23 15:36:00 EST Future Appointments Appointment Date:10/17/2023 08:30:00 AM Scheduled Provider:Hu Davis DO Location[facility] Appointment Type:Pain Management - New () [facility]02-20-2024 NoteHNO ID: [id number] Author: ALFREDO CRUZ MD Service: ? 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 You are a resident of the [facility] or [place] You are 18 years of age or [...] a valid patient HIPAA authorization. Subject to Kashmi s ( [employer] ) right to terminate, rescind,revoke, or amend Card eligibility criteria and/or Card terms and conditions which may occur at [employer] s sole discretion, without notice, and for [...] a valid patient HIPAA authorization. Subject to [employer] s right to terminate, rescind, revoke, or amend Card eligibility criteria and/or Card terms and conditions which may occur at [employer] s sole discretion, without notice, and for any reason, Card expires and savings end on 08/04/2024 Video Instructions for Injecting Zepbound: https://www.youtube.com/watch?v=pA4QrUD8Vsp Link to Cardiac Sonographer Website https://www.TickPick/ Savings card: https://www.TickPick/coverage-savings Medication Guide: https://www.TickPick/kyrc-cq-gipbqepi Written pen instructions: https://www.TickPick/how-to-use Tirzepatide: Patient drug information What is Zepbound? [...] under 18 years of age. Check out [employer]charrer.Yashi for savings coupon and more information regarding [...] fat or fatty foods [facility] History of Present illness Narrative* Alfredo Cruz MD - 09/24/2023 1:32 PM EST Images from the original note were not included. 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 -- Discussed basic exercise recommendations, the role of exercise on weight loss and maintenance. Discussed the combination of aerobic and resistance exercise. -- Most patients benefit from a personalized exercise program. Will refer to endocrine elephant tamer -- Recommend gradual increase in exercise. Goal [...] 1x/week, food journals / trackers (Food log, Hersha Hospitality Trustness Pal), activity journals / trackers (Draker watch, Fit Bit, [employer]ending[employer] vivofit, Striiv). I will see her back [...] type (HCC) E66.01 Z68.41 Alfredo Cruz MD [facility] Endocrinology and Metabolism [facility] [phone] Medical Decision Making: Problems: Moderate: 1+ chronic illnesses with change Data: Unique source(s) for external note(s) reviewed: 1 Unique test result(s) reviewed: 3+ Unique test(s) ordered: 3+ Risk: Moderate: Drug management Medical Decision Making Level: 4 - Moderate documented in this encounterT[facility]02-14-2024 Telephone encounter Note * Telephone Encounter - MEHRAN Leggett - 09/18/2023 3:45 PM EST completed [facility] [id number] Miscellaneous Notes* Telephone Encounter - MEHRAN Leggett - 09/18/2023 3:45 PM EST completed documented in this encounterNevada Regional Medical [id number] NoteEchocardiology Procedure Exam Date/Time Accession # Ordering Echo Transthoracic 08/13/2023 09:46 EST [id number] Carlos ARCOS, Forest Jung CPT code 91805 [id number] Reason for Exam (Echo Transthoracic Complete) Abnormal ECG R94.31;Other (please specify) Report Version: 1 Study ID: [id number] [address] Adult Echocardiogram Report Name: DEJAH DYKES Study Date: 08/13/2023, 9: 11 AM Patient Location: [facility] : 1970 (MM/DD/YYYY) Gender: Female Age: 53 [...] Signed by: Forest Gonzalez MD Transcribed by: [facility] Technologist: [facility]11-20-2023 Note HNO ID: [id number] Author: Elly Galicia MD Service: ? Author [...] - Biotin- none - Amiodarone- none - Setauket- none - Head/neck radiation- none Interval history: [...] - 30 mmol/L 26 (more content not included)...[facility] 06-24-2023 Instructions* Patient Instructions* Elly Galicia MD - 06/24/2023 3:08 PM EST - Lab recheck today, will let you know if we need to change the dose - Weight Management consultation documented in [facility] encounterT[facility]11-20-2023 History of Present illness Narrative* Elly [...] - Biotin- none - Amiodarone- none - Setauket- none - Head/neck radiation- none Interval history: [...] (BMI) of 40.0 to 44.9 in adult ([facility]) 02/01/2023 Essential hypertension 01/04/2023 Kidney stones 02/01/2023 [...] high (L): Data is abnormally low THYROID [facility] 02/01/2023 Component TSH Component 02/01/2023 TSH [...] Tobi Lezama MD Transcribed by: JOSE Technologist: [facility] CT A/P 03/2022: The pancreas, spleen, adrenal [...] 12/23/2023). Elly Galicia MD documented in this encounterT[facility] Hospital10-23-2023 Evaluation note* Encounter Date Diagnosis Assessment Notes Treatment Notes Treatment Clinical Notes May, Lumbar back pain (ICD-10 - M54.50) [facility] 10-02-2023 NoteHNO ID: [id number] Author: Elly Galicia MD Service: ? Author [...] - Biotin- none - Amiodarone- none - Setauket- none - Head/neck radiation- none I have [...] or stare. No scleral (more content not included)...[facility]09-01-2023 NoteHistory of Present Illness Here for evaluation [...] Donald ARCOS, Juan Hodge, PUL, [place] [address] [facility] [place] [address]- Additional Instructions: after his testing is completed [...] 04/30/2019 Recorded diphtheria/pertussis, camelia (more content not included)...[facility] HospitalComment on above:Result Comment: Electronically Signed By: Donald ARCOS, Juan Hodge\.br\Date and Time Signed: 04/05/23 10:31 EDTOther Comment: Put under wrong [id number] Hospital Discharge instructions Follow Up Care 03/13/2023 13:01:01 With:Donald ARCOS, Juan Hodge, PUL, [place] Address: [address] [place] [address] [place] [address]- When:[address] [facility]08-24-2022 Evaluation + Plan note Diagnostic Tests Pending * UTI ([facility]) 03/28/[address] [facility] 08-24-2022 Hospital Discharge instructions Patient Education 03/28/2022 10:11:51 Kidney Stones, Jvvg-gj-Ljse Kidney Stones Kidney stones are rock-like masses [...] Follow these instructions at home: Medicines Take uxne-qbd-jpzlojl and prescription medicines only as told by [...] 01/07/2009 Document Revised: 12/08/2019 Document Reviewed: 12/08/2019 [employer] Patient Education 2019 [employer] [facility] 05-13-2022 Hospital Discharge instructions Patient Education 12/15/2021 17:22:14 Paresthesia, Yvsk-pr-Udfy Paresthesia Paresthesia is a burning or prickling [...] fried or sweet foods. General instructions Take mkzs-gso-vetgvcw and prescription medicines only as told by [...] 2009 Document Revised: 08/17/2019 Document Reviewed: 07/31/2018 [employer] Patient Education 2020 [employer] 12/15/2021 17:22:14 Spondylolysis Spondylolysis Spondylolysis is [...] Follow these instructions at home: Medicines Take xtfh-qmb-ifzuwuh and prescription medicines only as told by your health care provider. Ask your health care provider if the medicine prescribed to you: ?Requires you to avoid driving or using heavy machinery. ?Can cause constipation. You may need to take these actions to prevent or treat constipation: ?Drink enough fluid to keep your urine pale yellow. ?Take kbwv-oiq-pkewmbf or prescription medicines. ?Eat foods that are [...] 07/22/2006 Document Revised: 11/12/2019 Document Reviewed: 02/24/2019 [employer] Patient Education 2020 [employer] 12/15/2021 17:22:14 Hypokalemia Hypokalemia Hypokalemia means [...] hospital. Follow these instructions at home: Take gsle-aol-tcqzqeg and prescription medicines only as told by [...] cantaloupe, kiwi, oranges, tomatoes, asparagus, and potatoes. ?[place] juice. ?Tomato juice. ?Red meats. ?Yogurt. Keep [...] 07/22/2006 Document Revised: 03/04/2019 Document Reviewed: 03/04/2019 [employer] Patient Education 2020 [employer] Follow Up Care 12/15/2021 12:44:44 With:Lenora SANTOS Address: [address] [place], [place] [address] Business (1) When:12/18/2021 16:02:[address] [facility]+Reason for visit Narrative* Chief Complaint follow up liver biop sy k75.[address] [facility] for [facility] Fatty liver Metabolic dysfunction-associated steatohepatitis (MASH) [facility] Work Phone: Chifk complaint+Reason for visit Narrative* Chief Complaint k75.[address] [facility] Reason for Visit BMI 40.0-44.9, adult Hypertension Hypothyroidism Metabolic dysfunction-associated steatohepatitis (MASH) Pre-diabetes Sleep apnea [facility] Work Phone: chief complaint+Reason for visit Narrative* Chief Complaint k75.[address] [facility] r73.03 Reason for Visit BMI 40.0-44.9, adult Hypertension Hypothyroidism Metabolic dysfunction-associated steatohepatitis (MASH) Pre-diabetes Sleep apnea [facility] Work Phone: chief complaint+Reason for visit Narrative* Chief Complaint k75.81 [facility] r73.03 K75.81 Z73.360 Reason for Visit BMI 40.0-44.9, adult Hypertension Hypothyroidism Metabolic dysfunction-associated steatohepatitis (MASH) Pre-diabetes Sleep apnea BMI 40.0-44.9, adult Hypertension Metabolic dysfunction-associated steatohepatitis (MASH) Sleep apnea Type 2 diabetes mellitus [facility] Work Phone: chief complaint+Reason for visit Narrative* Chief Complaint k75.81 [facility] r73. K75.[address] WM f/u Penitentiary / Current Medication use / Med Check Reason for Visit BMI 40.0-44.9, adult Hypertension Hypothyroidism Metabolic dysfunction-associated steatohepatitis (MASH) Pre-diabetes Sleep apnea BMI 40.0-44.9, adult Hypertension Metabolic dysfunction-associated steatohepatitis (MASH) Sleep apnea Type 2 diabetes mellitus [facility] Work Phone: Evaluation + Plan note No data available for this section [facility] note Future Appointments Appointment Date:06/06/2022 01:00:00 PM Scheduled Provider:RAJNI MORA PA-C Location:[facility] Appointment Type:URO Office Visit [facility] note Future Appointments Appointment Date:09/12/2023 01:30:00 PM Scheduled Provider:Forest Gonzalez MD [facility] Type:Cardiology Follow Up (FT) Future Scheduled Tests Radiology* Echo Transthoracic Complete 08/02/23 * US LE Venous Duplex Bilateral 08/02/[address] [facility] note Future Appointments Appointment Date:08/23/2023 07:15:00 AM Scheduled Provider: [facility] Type:MA Screen (FT) Appointment Date:09/12/2023 01:30:00 PM Scheduled Provider:Forest Gonzalez MD [facility] Type:Cardiology Follow Up (FT) Future Scheduled Tests Radiology* MA Mamm Screen w/CAD if perf and 3D Gunnar 08/23/[address] [facility] Future Appointments Appointment Date:09/12/2023 01:30:00 PM Scheduled Provider:Forest Gonzalez MD Location:[facility] Appointment Type:Cardiology Follow Up (FT) Appointment Date:09/16/2023 09:00:00 AM Scheduled Provider:Hu Davis DO Location[facility] Appointment Type:Pain Management - New (FT) [facility] Future Appointments Appointment Date:09/16/2023 09:00:00 AM Scheduled Provider:Hu Davis DO Location[facility] Appointment Type:Pain Management - New (FT) [facility] Future Appointments Appointment Date:10/17/2023 08:30:00 AM Scheduled Provider:Hu Davis DO Location[facility] Appointment Type:Pain Management - New (FT) [facility] noteNo assessment information available [facility] Work Phone: evaluation note* Diagnosis Acquired hypothyroidism- Primary Unspecified hypothyroidism Class 3 severe obesity with serious comorbidity and body mass index (BMI) of 40.0 to 44.9 in adult, unspecified obesity type (HCC) documented in this encounter [facility] note* Diagnosis Onset Date Resolution Status Encounter for screening colonoscopy acute Hepatic steatosis [facility] Work Phone: evaluation note* Diagnosis Primary insomnia Persistent disorder of initiating or maintaining sleep documented in this encounter [facility]* Diagnosis Class 3 severe obesity with serious comorbidity and body mass index (BMI) of 40.0 to 44.9 in adult, unspecified obesity type (HCC) documented in this encounter [facility] note* Diagnosis Onset Date Resolution Status Encounter for screening colonoscopy acute Hepatic steatosis acute Hepatic steatosis [facility] Work Phone: evaluation note* Diagnosis Class 3 severe obesity with serious comorbidity and body mass index (BMI) of 40.0 to 44.9 in adult, unspecified obesity type (HCC)- [facility] Diagnosis Onset Date Resolution Status Hepatic steatosis acute Fatty liver acute Metabolic dysfunction-associated steatohepatitis (MASH ) [facility] Work Phone: Evaluation note* Diagnosis Hypokalemia- Primary Hypopotassemia Acquired hypothyroidism (CMS/HCC) Unspecified hypothyroidism Hyperglycemia Other abnormal glucose Primary insomnia Persistent disorder of initiating or maintaining sleep Hypothyroidism (acquired) (CMS/HCC) Unspecified hypothyroidism Weight gain Other symptoms concerning nutrition, metabolism, and development Other depression (CMS/HCC) Essential hypertension (CMS/HCC) Unspecified essential hypertension Primary insomnia- Primary Persistent disorder of initiating or maintaining sleep Sleep apnea in adult Acquired hypothyroidism (CMS/HCC) Unspecified hypothyroidism Sciatica of right side Herniated lumbar intervertebral disc Displacement of lumbar intervertebral disc without myelopathy Essential hypertension (CMS/HCC)- Primary Unspecified essential hypertension Encounter for immunization Sciatica of right side Chronic vaginitis Unspecified vaginitis and vulvovaginitis Acne rosacea Rosacea Seasonal allergic rhinitis due to fungal spores Acquired hypothyroidism (CMS/HCC) Unspecified hypothyroidism Acquired hypothyroidism (CMS/HCC)- Primary Unspecified hypothyroidism Essential hypertension (CMS/HCC) Unspecified essential hypertension Edema of right lower leg due to peripheral venous insufficiency Acute frontal sinusitis, recurrence not specified Non-recurrent acute serous otitis media of right ear Fatty liver- Primary Other chronic nonalcoholic liver disease Joint pain of lower extremity Depression, unspecified depression type (CMS/HCC) Sciatica of right side- Primary Myalgia Unspecified myalgia and myositis Herniated lumbar intervertebral disc Displacement of lumbar intervertebral disc without myelopathy Right hip pain Pain in joint, pelvic region and thigh Joint pain of lower extremity Primary insomnia Persistent disorder of initiating or maintaining sleep Bronchitis- Primary Bronchitis, not specified as acute or chronic Herpes zoster with other complication- Primary Essential hypertension (CMS/HCC)- Primary Unspecified essential hypertension Fatty liver Other chronic nonalcoholic liver disease Pain in joint involving right ankle and foot Essential hypertension (CMS/HCC)- Primary Unspecified essential hypertension Hypokalemia Hypopotassemia Type 2 diabetes mellitus without complication, without long-term current use of insulin (CMS/HCC)- Primary [facility] - [facility]orted* Type Description Date Medical History Hypertension Medical History kidney stones Medical History obesity Medical History thyroid disease Surgical History cholecystectomy Surgical History Lumbar Decompression with fusio n L5-S1 Surgical History ankle surgery Surgical History hysterectomy Surgical History shoulder surgery Hospitalization History see [place] [facility] Other Hospital Discharge instructions No data available for this [facility] Additional Instructions Follow-up with your primary care doctor [facility] develop worsening [facility]: Hospital Discharge instructionsAmbulatory Orders* Referral to Weight Management Time Frame: 12/24/23, Location: None [facility] Work Phone: Progress note No data available for this section [facility] Summary Purpose Family History Relationship Condition Age [...] Referral Specialty Diagnoses / Procedures Referred By Contac t Referred To Contact Diagnoses Class 3 severe obesity with serious comorbidity and body mass index (BMI) of 40.0 to 44.9 in adult, unspecified obesity type (HCC) Procedures ENDOCRINE MEDICAL WEIGHT MANAGEMENT OFFICE/OUTPATIENT [facility] 60-74 MINUTES Elly Galicia MD [address] [place] [address] Referral ID Status Reason Start Date Expiration Date Visits Requested Visits Authorized [id number] Pending Review PCP Requested Referral 3 06/23/2024 1 1 Additional Source Comments INFORMATION SOURCE (unrecogn ized section and content) DATE CREATED AUTHOR 09/14/2019 [facility] DATE CREATED AUTHOR AUTHOR'S ORGANIZ ATION 03/28/2022 [facility] dical Specialist DATE CREATED AUTHOR AUTHOR'S ORGANIZ ATION 12/19/2023 [facility] DATE CREATED AUTHOR AUTHOR'S ORGANIZ ATION 03/19/2024 [facility] DATE CREATED AUTHOR AUTHOR'S ORGANIZ ATION 05/05/2024 [facility] DATE CREATED AUTHOR AUTHOR'S ORGANIZ ATION 05/19/2024 [facility] dical Specialists EPIC Care Team (unrecognized sect ion and content) Team Status: Active Member Role Status Dates Lenora Santos PA-C Primary Care Provider Active Team Status: Inactive Member Role Status Dates Lenora Santos PA-C Primary Care Provider Active Regino Metcalf DO Emergency Provider Active Academic Support Specialist Relationship Specialty Start Date End Date Neli Slater MD PCP - General Family Medicine 03/19/11 Lenora Santos PA-C [address] [place] [address] Referring Family Medicine 03/18/23 Team Status: Inactive Member Role Status Dates Lenora Santos PA-C Primary Care Provider Active Allan Dimas PA-C Emergency Provider Active Academic Support Specialist Relationship Specialty Start Date End Date Renetta Chavarria MD [address] [place] [address] PCP - General Family Medicine 01/04/23 Lenora Santos PA [address] [place] [address] Physician Fastener Sewing Machine Operator Family Medicine 01/04/23 Team Status: Inactive Member [...] September 19, 2023 End: September 19, 2023 Academic Support Specialist Relationship Specialty Start Date End Date Renteta Chavarria MD [address] [place] [address] PCP - General Family Medicine 01/04/23 Lenora Santos PA [address] [place] [address] Physician Fastener Sewing Machine Operator [facility] 01/04/23 Academic Support Specialist Relationship Specialty Start Date End Date Neli Slater MD PCP - General Family Medicine 03/19/11 Lenora Santos PA-C [address] [place] [address] [place] [address] Referring Family Medicine 03/18/23 Team Status: Active [...] September 25, 2023 End: September 25, 2023 Academic Support Specialist Relationship Specialty Start Date End Date Neli Slater MD PCP - General Family Medicine 03/19/11 Lenora Santos PA-C [address] [place] [address] Referring Family Medicine 03/18/23 Team Status: Inactive [...] Team Status: Inactive Member Role Status Dates CHALINO LeggettC Primary Care Provider Active Start: December 24, 2023 End: December 24, 2023 Kamilah Ward MD Attending Provider Active Start: December 24, 2023 End: December 24, 2023 Team Status: Inactive Member Role Status Dates MEHRAN Leggett-C Primary Care Provider Active Start: March 06, 2024 End: March 06, 2024 Kamilah Ward MD Attending Provider Active Start: March 06, 2024 End: March 06, 2024 Team Status: Inactive Member Role Status Dates CHALINO LeggettC Primary Care Provider Active Start: March 17, 2024 End: March 17, 2024 Tank Xavier MD Attending Provider Active Start: March 17, 2024 End: March 17, 2024 Team Status: Inactive Member Role Status Dates CHALINO LeggettC Primary Care Provider Active Start: March 24, 2024 End: March 24, 2024 SARAI Eisenberg Attending Provider Active Start: March 24, 2024 End: March 24, 2024 Team Status: Inactive Member Role Status Dates CHALINO LeggettC Primary Care Provider Active Start: March 28, 2024 End: March 28, 2024 Tank Xavier MD Attending Provider Active Start: March 28, 2024 End: March 28, 2024 Team Status: Active Member Role Status Dates CHALINO LeggettC Primary Care Provider Active Start: March 30, 2024 Tobi Goodman DO Attending Provider Active Sta rt: March 30, 2024 Team Status: Inactive Member Role Status Dates CHALINO LeggettC Primary Care Provider Active Start: April 24, 2024 End: April 24, 2024 Tank Xavier MD Attending Provider Active Start: April 24, 2024 End: April 24, 2024 Team Status: Inactive Member Role Status Dates CHALINO LeggettC Primary Care Provider Active Start: April 30, 2024 End: April 30, 2024 SARAI Posadas Attending Provider Active S tart: April 30, 2024 End: April 30, 2024 Team Status: Active Member Role Status Dates CHALINO LeggettC Primary Care Provider Active Start: April 30, [...] Team Status: Active Member Role Status Dates eLnora Santos PA-C Primary Care Provider Active Start: May 04, 2024 Tank Xavier MD Attending Provider Active Start: May 04, 2024 Team Status: Inactive Member Role Status Dates Lenora Santos PA-C Primary Care Provider Active Start: May 04, 2024 End: May 04, 2024 Tank Xavier MD Attending Provider Active Start: May 04, 2024 End: May 04, 2024 Academic Support Specialist Relationship Specialty Start Date End Date Renetta Chavarria MD [address] [place] [address] PCP - General Family Medicine 01/04/23 Lenora Santos PA [address] [place] [address] Physician Fastener Sewing Machine Operator Family Medicine 01/04/23 Team Status: Inactive Member Role Status Dates Lenora Santos PA-C Primary Care Provider Active Start: May 13, 2024 End: May 13, 2024 Tyra Moreland RN Attending Provider Active Start: May 13, 2024 End: May 13, 2024 Tank Xavier MD Active Start: May 13, 2024 End: May 13, 2024 Academic Support Specialist Relationship Specialty Start Date End Date Renetta Chavarria MD [address] [place] [address] PCP - General Family Medicine 01/04/23 Lenora Santos PA [address] [place] [address] Physician Fastener Sewing Machine Operator Family Medicine 01/04/23 Academic Support Specialist Relationship Specialty Start Date End Date Renetta Chavarria MD [address] [place] [address] PCP - General Family Medicine 01/04/23 Lenora Santos PA [address] [place] [address] Physician Fastener Sewing Machine Operator Family Medicine 01/04/23 Goals (unrecognized section and content) Goals may be documented in a n alternate section REASON FOR VISIT (unrecogniz ed section and content) Reason Comments Follow Up Thyroid Reason Comments Med Refill Reason Comments Initial Consult Specialty Diagnoses / Procedures Referred By Contac t Referred To Contact Diagnoses Class 3 severe obesity with serious comorbidity and body mass index (BMI) of 40.0 to 44.9 in adult, unspecified obesity type (HCC) Procedures ENDOCRINE MEDICAL WEIGHT MANAGEMENT OFFICE/OUTPATIENT [facility] 60-74 MINUTES Elly Galicia MD [address] [place], [place] [id number] Referral ID Status Reason Start Date Expiration Date V isits Requested Visits Authorized [id number] Closed PCP Requested Referral 06/24/2023 06/23/2024 1 1 Reason Comments Follow Up Reason Comments Diabetic Eye Exam Blurred Vision Source Comments (unrecognize d section and content) In the event this informatio n is protected by the Federal Confidentiality of Alcohol and Drug Abuse Patient Records regulations: The Federal rules restrict any use of the information to criminally investigate or prosecute any alcohol or drug abuse patient.[facility] the event this information is protected by the Federal Confidentiality of Alcohol and Drug Abuse Patient Records regulations: The Federal rules restrict any use of the information to criminally investigate or prosecute any alcohol or drug abuse patient.[facility] the event this information is protected by the Federal Confidentiality of Alcohol and Drug Abuse Patient Records regulations: The Federal rules restrict any use of the information to criminally investigate or prosecute any alcohol or drug abuse patient.[facility] the event this information is protected by the Federal Confidentiality of Alcohol and Drug Abuse Patient Records regulations: The Federal rules restrict any use of the information to criminally investigate or prosecute any alcohol or drug abuse patient.[facility] FOR RECORDS PERTAINING TO PATIENTS WHO [...] BE BASED ON THE PRIMARY CLINICAL RECORDS. [facility] [facility]. provides no warranty or guarantee of the accuracy or completeness of information in this document.
[2024-05-21 07:10] LABS: Basophils Absolute Auto 0.1 10^3/uL (0.0-0.1); Basophils Percent Auto 0.7 % (0.2-2.0); Eosinophils Absolute Auto 0.1 10^3/uL (0.0-0.7); Eosinophils Percent Auto 1.7 % (0.9-7.0); Hematocrit 44.6 % (36.0-48.0); Hemoglobin 15.4 g/dL (12.0-16.0); Immature Granulocytes Abs Auto 0.01 10^3/uL (0.00-0.03); Immature Granulocytes Pct Auto 0.1 % (0.0-0.5); Lymphocytes Absolute Auto 3.6 10^3/uL (1.2-3.8); Lymphocytes Percent Auto 44.7 % (20.5-60.0); Mean Corpuscular HGB Conc 34.5 g/dL (29.9-35.2); Mean Corpuscular Hemoglobin 31.5 pg (26.7-34.0); Mean Corpuscular Volume 91.2 fL (81.0-99.0); Mean Platelet Volume 10.4 fL (9.5-13.5); Monocytes Absolute Auto 0.7 10^3/uL (0.3-0.8); Monocytes Percent Auto 8.1 % (1.7-12.0); Neutrophils Absolute Auto 3.6 10^3/uL (1.4-6.5); Neutrophils Percent Auto 44.7 % (43.0-75.0); Platelet Count 210 10^3/uL (150-450); Red Blood Count 4.89 10^6/uL (4.20-5.40); Red Cell Distribution Width 12.1 % (11.0-15.0)
[2024-05-21 07:35] LABS: Glucometer 90 mg/dL (74-106)
[2024-05-21] MEDS: LACTATED RINGER'S SOLUTION 1,000 ML 50 ML IV ×2 (07:50→11:39)
[2024-05-21] MEDS: CEFAZOLIN SODIUM 3,000 MG in 0.9 % SODIUM CHLORIDE 100 ML 200 MG IV (10:06)
--- NOTE | 2024-05-21 10:13 | PC.NURSE ---
0945- Patient placed on monitor and O2 at 2l/min via nc. Final timeout completed. 0946- Patient positioned on back. Right leg elevated on pillows. 0947- Right popliteal nerve landmarked with ultrasound per Dr. Bailey. 0951- Right popliteal injected per Dr. Bailey. 0955- Block initiated. 56- Block completed. Patient tolerated it well. See posted vital signs.
--- NOTE | 2024-05-21 13:37 | P.ORON_ITS ---
Brief Operative Note Date of procedure: 05/21/24 Pre-op diagnosis general: Right foot and ankle arthritis, osteochondritis diss ecans/osteochondral defect of talus, equinus contracture Post-op diagnosis: same as pre-op Procedure: Procedure performed: Right ankle and subtalar joint fusion, harvest of tibial bone graft and Achilles tendon lengthening Indication for procedure: Patient is a 53-year-old female with medical history of hereditary liver disease, hypothyroidism, controlled type 2 diabetes and high blood pressure. She also has a history of chronic back pain. Patient presented to me initially for second opinion regarding her right ankle she has had 3 previous surgeries on this ankle at the [facility] which did provide improvement in pain and dysfunction however temporary. She is known to pain management who related that they believed her ankle pain was not directly related to her back issues. Upon seeing me in addition to the 3 ankle surgeries that she has attempted bracing, shoe and activity modification. She cannot take Tylenol due to her liver issues and tries to stay away from NSAIDs as well. Examination revealed limited ankle joint range of motion with mild crepitus and significant endrange pain. Subtalar joint range of motion was similar with decreased range of motion and pain but not as extreme as her ankle. A CT scan was obtained in addition to plain x-rays which demonstrated periarticular osteophytes around the ankle, joint space narrowing of the ankle and subtalar joints as well as cystic formation. Given her history and her symptoms of daily pain that is affecting activities of daily living she wished to proceed with surgical intervention and I recommended the above procedures. Intraoperative findings: Ankle joint dorsiflexion was to neutral but not past. Ankle plantarflexion was approximately to 15 degrees subtalar joint range of motion was also limited to less than 15 degrees in total. Discoloration of all bones that were visualized during the surgery which included the distal tibia, fibula, talus, calcaneus and navicular. Bone quality and hardness however seemed within normal limits and seemingly bled appropriately. Periarticular osteophytes are noted around the tibiotalar joint as well as thinning of the cartilage on both the ankle and subtalar joints. Procedure in detail: Patient was identified preoperative holding by myself which time correct side and site were marked and consent was obtained. Regional anesthesia was performed by the anesthesia team then the patient was brought back to the operating theater placed on table and preoperative antibiotics were started. Spinal anesthesia was administered followed by sedation then the right lower extremity was prepped and draped in the usual sterile technique with a thigh tourniquet. Formal timeout was performed and the right lower extremity was exsanguinated and tourniquet was inflated. A triple hemisection Achilles lengthening was performed using 3 percutaneous incisions over the mid substance of the Achilles tendon releasing half of the tendon with each stab incision. Ankle joint dorsiflexion did improve. Then attention was drawn to the lateral ankle and incision was placed along the lateral malleolus extending to the sinus tarsi. Combination of sharp and blunt dissection gained access to the lateral fibula and sinus tarsi with all bleeders being coagulated. The distal fibula was then removed by using a sagittal saw to perform an osteotomy obliquely of the lateral malleolus which was then released of all soft tissues. The visualized bone was all discolored but there is no other signs of infection and bone quality was otherwise normal. The excised lateral malleolus was then passed the back table to be sent as specimen. A specimen of the talus was also obtained utilizing clean rongeur. Further deep dissection allowed full exposure of the ankle and subtalar joints which were then prepared for fusion utilizing osteotomes, curettes and rongeur's. A 2.5 mm drill bit was then used to drill the subchondral bone on each side of the ankle and subtalar joints. The surgical site was flushed with copious saline. Then an incision was placed on the plantar aspect of the heel and blunt dissection w as taken down to the plantar calcaneus. A guidepin was placed from the plantar calcaneus spanning the subtalar and ankle joints and position was checked on fluoroscopy. Once in a good position an opening 9 mm reamer was used over the guidepin and was used to drill into the plafond. This guidewire was then removed and replaced with a ball-tipped wire which extended to the proximal tibia and was checked on fluoroscopy. Then the hindfoot ankle and tibia were reamed accordingly and 0.5 mm succession until significant chatter was noted when passing through the isthmus of the tibial shaft. Largest reamer was 11.5 mm. Reamings were collected utilizing the [employer].ler bone press. A portion of the reamings from the reamer was also sent as specimen to pathology. Then the calcaneus and talus were further reamed to 13.5 mm accordingly. On the back table 10 cc of solid bone graft obtained from the tibia were mixed with 5 cc of sparc and Proteios allograft. The bone graft mixture was then packed into the ankle and subtalar joints. The guide pin/ball-tipped pin was then removed and a 10 x 300 mm nail was placed onto the jig accordingly. Fluoroscopy confirmed proper nail placement. An inci mira was placed on the posterior calcaneus and blunt dissection was taken down to bone. The posterior to anterior screw was then placed accordingly under fluoroscopy. Next the lateral to medial calcaneal screw was placed accordingly noting good stable fixation. Then a mallet was used to obtain compression of the joints. Then utilizing the jig according to the plate embosser's and direction incision was placed along the medial aspect of the midshaft of the tibia and blunt dissection was taken down to bone. In addition a stab incision was placed on the lateral aspect of the midshaft of the tibia. Trocar and cannula were placed in the dynamic slot in the jig and a drill bit was used to drill the tibial shaft medial to lateral passing into the cannula laterally. Then 3 mm of additional manual compression was obtained. While this manual compression was being held by the jig the static screw hole was drilled accordingly and a 5.0 mm proximal cross lock screw was placed with good fixation being obtained. Manual compression was released and the drill bit from the dynamic slot was removed. An additional 5.0 millimeter screw was placed in the dynamic slot. Good bony apposition and position was achieved based on fluoroscopic evaluation. Surgical sites were irrigated and the jig was removed. An end cap was then placed into the base of the nail under fluoroscopic guidance. After irrigating deep fascia was closed with observable suture and the tourniquet was deflated with a prompt hyperemic response. Skin was then closed in layers. A dry sterile dressing and multilayer modified Davis posterior splint was then applied. Patient tolerated the procedure and anesthesia well was transferred to the recovery room with vital signs stable and brisk capillary refill to the right toes. Postoperative plan: Transfer to the medical surgical unit to be admitted under the hospitalist care who was notified Perioperative antibiotics, DVT prophylaxis and multimodal pain management was ordered. Patient is to be nonweightbearing and physical therapy was consulted Estimated length of stay is 2-3 nights depending on physical therapy evaluation and pain control, plan is for patient to be discharged home Will follow Implants: [employer] Geovanna Nail Anesthesia: MAC, regional and spinal Surgeon: Koffi García Estimated blood loss (mL): 25 Tourniquet time (min): 120 Pathology: other (Bone from talus, fibula and reamings) Condition: stable Disposition: PACU
[2024-05-21 13:51] LABS: Glucometer 104 mg/dL (74-106)
--- NOTE | 2024-05-21 14:00 | XR_ITS ---
[address] [address] Patient Name: DEJAH DYKES MRN: [id number] date: 1970 Sex: F Assigned Patient Location: [facility] Current Patient Location: Accession/Order Number: [id number] Exam Date: 05/21/2024 14:35 Report Date: 05/25/2024 07:25 At the request of: SAURABH MOREL Procedure: XR ankle RT min 3V PROCEDURE: XR ankle RT min 3V COMPARISON: 11/13/2023 HISTORY: DJD s/p ankle/hindfoot fusion FINDINGS: BONES:Ankle fusion utilizing a retrograde intramedullary nail and proximally and distally. Severe degenerative change of the tibiotalar joint. Resection of the distal fibula. SOFT TISSUES:Subcutaneous air EFFUSION:None visible. OTHER: Negative. XR/XR ankle RT min 3V IMPRESSION: Ankle fusion with postsurgical changes Electronically authenticated by: ILANA PINEDA Date: 05/25/2024 07:25
[2024-05-21] MEDS: 0.9 % SODIUM CHLORIDE 250 ML 10 ML IV (17:20)
[2024-05-21] MEDS: CEFAZOLIN SODIUM/DEXTROSE,ISO 1 GM/50 ML PREMIX IV (17:20)
[2024-05-21] MEDS: METFORMIN HCL 500 MG TAB.ER.24H 1000 MG PO (18:35)
[2024-05-21] MEDS: OXYCODONE HCL 5 MG TABLET 10 MG PO ×2 (18:35→22:37)
--- NOTE | 2024-05-21 19:21 | P.PN_ITS ---
Progress Note: Subjective Subjective Interval history: Patient admitted for podiatric procedure. See operative note. When I saw patient up on the medical surgical floor, she was resting comfortably in bed, still has numbness of her lower extremity. Starting to get some sensation that already though. Denies any other complaints. She does have a history of hepatic steatosis and diabetes but otherwise has been stable Exam Constitutional Vital Signs, click to edit/add: Last Vital Signs Temp 97.5 F L 05/21/24 14:15 Pulse 63 05/21/24 14:15 Resp 18 05/21/24 14:15 BP 123/83 05/21/24 14:15 Pulse Ox 98 05/21/24 14:15 O2 Del Method Room Air 05/21/24 14:59 Documenting provider has reviewed patient's vital signs: yes Common normals: no apparent distress Chest Common normals: inspection of chest normal Respiratory Common normals: normal respiratory effort and no retractions Cardio Common normals: regular rate, regular rhythm and no murmurs GI Common normals: Normal to inspection, nondistended, normoactive bowel sounds present Progress Note: Objective Labs Labs: Short CBC 05/21/24 Range/Units 07:06 WBC 8.0 (4.0-11.0) 10^3/uL Hgb 15.4 (12.0-16.0) g/dL Hct 44.6 (36.0-48.0) % Plt Count 210 (150-450) 10^3/uL Progress Note: A&P Assessment and Plan (1) Sleep apnea: (2) Diabetes: (3) Deep vein thrombosis: (4) MANRIQUEZ (nonalcoholic steatohepatitis): (5) Hypothyroid: (6) Hypertension: Plan Patient findings: Patient mated after podiatric procedure. See plan from podia try NIDDM-insulin sliding scale Nonalcoholic steatohepatitis-liver function test slightly elevated but not concerning Hypothyroidism-continue with home medications Admission status: Patient currently in SOP bed, likely improved to the point of discharge late tomorrow. Maintain SOP status
[2024-05-21 20:53] LABS: Glucometer 161 mg/dL (74-106)
--- NOTE | 2024-05-21 20:59 | PC.NURSE ---
pt. was incontinent of small amount of urine. assisted pt. on bedpan. pt. voided a small drop of urine.
--- NOTE | 2024-05-21 22:05 | PC.NURSE ---
Patient called out in tears stating her abdomen hurts. Attempted to place patient on bedpan to urinate. Unable to urinate at this time. Patient got up to beside commode. 150 urinated. Bladder scan obtained with 862 residual. [place] text to place straight cath and 925mL removed. Patient states she feels better
[2024-05-21] MEDS: MONTELUKAST SODIUM 10 MG TABLET PO (22:36)
[2024-05-21] MEDS: ONDANSETRON PF 4 MG/2 ML VIAL IV (22:36)
[2024-05-21] MEDS: ENOXAPARIN SODIUM 40 MG/0.4 ML SYRINGE SUBQ (22:36)
[2024-05-21] MEDS: PREGABALIN 75 MG CAPSULE PO (22:36)
[2024-05-21] MEDS: KETOROLAC TROMETHAMINE 30 MG/ML VIAL 15 MG IVP (22:37)
[2024-05-22] VITALS (9 sets, daily range): BP systolic 94–109; BP diastolic 50–68; PULSE 64–75; TEMP 36.3–36.8; O2SAT 95–99
[2024-05-22] MEDS: CEFAZOLIN SODIUM/DEXTROSE,ISO 1 GM/50 ML PREMIX IV ×3 (02:40→17:34)
[2024-05-22] MEDS: RESMETIROM 100 EACH PO (05:50)
[2024-05-22] MEDS: LEVOTHYROXINE SODIUM 25 MCG TABLET 50 MCG PO (05:50)
--- NOTE | 2024-05-22 06:01 | P.PN_ITS ---
Progress Note: Subjective Subjective Interval history: No current this morning. Did have an episode last night of some bladder outlet obstruction. Had to have straight cath completed. Will reeval later this morning. Exam Constitutional Vital Signs, click to edit/add: Last Vital Signs Temp 97.9 F 05/22/24 04:00 Pulse 64 05/22/24 04:00 Resp 18 05/22/24 04:00 BP 97/64 05/22/24 04:00 Pulse Ox 98 05/22/24 04:00 O2 Del Method Nasal Cannula 05/22/24 04:00 O2 Flow Rate 2 05/22/24 04:00 Documenting provider has reviewed patient's vital signs: yes Common normals: no apparent distress Chest Common normals: inspection of chest normal Respiratory Common normals: normal respiratory effort and no retractions Cardio Common normals: regular rate, regular rhythm and no murmurs GI Common normals: Normal to inspection, nondistended, normoactive bowel sounds present Progress Note: Objective Labs Labs: Short CBC 05/21/24 Range/Units 07:06 WBC 8.0 (4.0-11.0) 10^3/uL Hgb 15.4 (12.0-16.0) g/dL Hct 44.6 (36.0-48.0) % Plt Count 210 (150-450) 10^3/uL Progress Note: A&P Assessment and Plan (1) Sleep apnea: (2) Diabetes: (3) Deep vein thrombosis: (4) MANRIQUEZ (nonalcoholic steatohepatitis): (5) Hypothyroid: (6) Hypertension: Plan Patient findings: Patient admitted after podiatric procedure. See plan from podiatry NIDDM-insulin sliding scale Bladder outlet obstruction-we will straight cath if necessary. As needed dose ordered. Change patient observation status Nonalcoholic steatohepatitis-liver function test slightly elevated but not concerning Hypothyroidism-continue with home medications Admission status: Patient currently in SOP bed, likely improved to the point of discharge late tomorrow. Maintain SOP status Urinary Catheter Management Urinary Catheter Management Straight: Cath placed during this visit: yes Urethral indwelling: No Insertion date: 05/21/24 Insertion time: 23:30
[2024-05-22 07:47] LABS: Glucometer 152 mg/dL (74-106)
[2024-05-22] MEDS: PREGABALIN 75 MG CAPSULE PO ×2 (09:02→21:58)
[2024-05-22] MEDS: CHOLECALCIFEROL (VITAMIN D3) 125 MCG/5,000 UNIT TABLET PO (09:02)
[2024-05-22] MEDS: POTASSIUM CHLORIDE 10 MEQ ER TABLET 40 MEQ PO (09:03)
--- NOTE | 2024-05-22 09:45 | CM.NOTE ---
Rounds made with Dr. Rodrigues, pt continues to having numbness in R foot (unable to wiggle toes). PT will evaluate pt for discharge planning.
[2024-05-22 11:50] LABS: Glucometer 126 mg/dL (74-106)
--- NOTE | 2024-05-22 12:03 | SWNOTE1 ---
SW met with pt to discuss dc needs. Pt lives at home with family. Pt has a walker and knee scooter at home. She has been practicing at home with both. Pt voices she has no needs at discharge at this time.
[2024-05-22] MEDS: OXYCODONE HCL 5 MG TABLET PO (13:03)
--- NOTE | 2024-05-22 13:32 | PM.PN ---
Progress Note: Subjective Subjective Interval history: Patient feels well and pain is currently controlled. She still feels like the nerve block is working and relates that she is now able to wiggle her toes slightly. She has had urinary retention but thinks that this is getting better. She has no belly pain but not had a bowel movement yet Exam Narrative Exam Narrative: Splint is clean dry and intact. Light touch sensation to the toes is absent and she can slightly wiggle her toes. No calf pain on squeeze. Constitutional Vital Signs, click to edit/add: Last Vital Signs Temp 97.8 F 05/22/24 11:55 Pulse 66 05/22/24 11:55 Resp 18 05/22/24 11:55 BP 108/64 05/22/24 11:55 Pulse Ox 96 05/22/24 11:55 O2 Del Method Room Air 05/22/24 11:55 O2 Flow Rate 2 05/22/24 04:00 Progress Note: A&P Assessment and Plan (1) Sleep apnea: (2) Diabetes: (3) Deep vein thrombosis: (4) MANRIQUEZ (nonalcoholic steatohepatitis): (5) Hypothyroid: (6) Hypertension: Plan Patient seen at bedside. She reportedly has done well with physical therapy. I added Colace daily and MiraLAX as needed Continue current pain regimen as nerve block is beginning to wear off. I recommended that she remain in house until the nerve block has completely worn off which would likely be tomorrow. If she is able to tolerate pain tomorrow on oral medications then will consider discharge at that time Call with updates Urinary Catheter Management Urinary Catheter Management Straight: Cath placed during this visit: yes Urethral indwelling: No Insertion date: 05/21/24 Insertion time: 23:30
[2024-05-22] MEDS: DOCUSATE SODIUM 100 MG CAPSULE 200 MG PO ×2 (13:59→21:58)
[2024-05-22 16:45] LABS: Glucometer 140 mg/dL (74-106)
[2024-05-22] MEDS: 0.9 % SODIUM CHLORIDE 250 ML 10 ML IV (17:33)
[2024-05-22] MEDS: METFORMIN HCL 500 MG TAB.ER.24H 1000 MG PO (17:33)
[2024-05-22] MEDS: OXYCODONE HCL 5 MG TABLET 10 MG PO (17:33)
[2024-05-22] MEDS: MONTELUKAST SODIUM 10 MG TABLET PO (21:58)
[2024-05-22] MEDS: OXYCODONE HCL 15 MG TABLET PO (21:59)
[2024-05-22] MEDS: ENOXAPARIN SODIUM 40 MG/0.4 ML SYRINGE SUBQ (22:08)
[2024-05-22 22:19] LABS: Glucometer 115 mg/dL (74-106)
[2024-05-23] MEDS: KETOROLAC TROMETHAMINE 30 MG/ML VIAL 15 MG IVP ×2 (01:38→09:07)
[2024-05-23] MEDS: OXYCODONE HCL 15 MG TABLET PO ×2 (01:38→05:42)
[2024-05-23] MEDS: CEFAZOLIN SODIUM/DEXTROSE,ISO 1 GM/50 ML PREMIX IV ×2 (01:39→09:07)
[2024-05-23 01:45] VITALS: BP 120/47; PULSE 98; TEMP 36.9; O2SAT 94
[2024-05-23 04:50] VITALS: O2SAT 96
[2024-05-23] MEDS: LEVOTHYROXINE SODIUM 25 MCG TABLET 50 MCG PO (05:43)
[2024-05-23] MEDS: RESMETIROM 100 EACH PO (05:44)
[2024-05-23 06:00] VITALS: BP 116/71; PULSE 71; TEMP 36.6; O2SAT 96
[2024-05-23 07:51] LABS: Glucometer 88 mg/dL (74-106)
[2024-05-23 08:06] VITALS: BP 97/63; PULSE 72; TEMP 36.7; O2SAT 95
[2024-05-23] MEDS: CHOLECALCIFEROL (VITAMIN D3) 125 MCG/5,000 UNIT TABLET PO (08:38)
[2024-05-23] MEDS: POTASSIUM CHLORIDE 10 MEQ ER TABLET 40 MEQ PO (08:38)
[2024-05-23] MEDS: METOPROLOL SUCCINATE 25 MG TAB.ER.24H PO (08:38)
[2024-05-23] MEDS: PREGABALIN 75 MG CAPSULE PO (08:38)
[2024-05-23] MEDS: DOCUSATE SODIUM 100 MG CAPSULE 200 MG PO (08:38)
[2024-05-23 11:36] LABS: Glucometer 89 mg/dL (74-106)
[2024-05-23 11:50] VITALS: O2SAT 100
[2024-05-23] MEDS: ONDANSETRON PF 4 MG/2 ML VIAL IV (12:53)
--- NOTE | 2024-05-23 15:45 | P.DS_ITS ---
DS: Providers Provider Primary care physician: ELLEN SANTOS Admitting clinician: Balaji Rodrigues Attending physician on admission: Balaji Rodrigues Consults: 05/21/24 13:33 Physical Therapy Eval and Treat Routine Reason for consultation: gait training - NWB right ankle Has provider been notified: No Attending physician on discharge: Shaikh Woody Discharging clinician: Shaikh Woody Anticipated date of discharge: 05/23/24 DS: Diagnosis Discharge Diagnosis (1) Arthritis of ankle or foot, degenerative: Qualifiers: Laterality: right Qualified Code(s): M19.071 - Primary osteoarthritis, right ankle and foot (2) Postoperative urinary retention: (3) Sleep apnea: Qualifiers: Sleep apnea type: obstructive Qualified Code(s): G47.33 - Obstructive sleep apnea (adult) (pediatric) (4) Diabetes: Qualifiers: Diabetes mellitus complication status: without complication Diabetes mellitus mcc insulin use: with oil heaterman use Diabetes mellitus type: type 2 Qualified Code(s): E11.9 - Type 2 diabetes mellitus without complications; 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 (5) MANRIQUEZ (nonalcoholic steatohepatitis): (6) Hypothyroid: Qualifiers: Hypothyroidism type: unspecified Qualified Code(s): E03.9 - Hypothyroidism, unspecified (7) Hypertension: Qualifiers: Hypertension type: primary hypertension Qualified Code(s): I10 - Essential (primary) hypertension DS: Summary Hospital Course Hospital Course: 53-year-old female with prior hx of right ankle arthritis and 3 previous ankle surgeries was admitted post operatively for post op pain control and PT/OT eval after she underwent right ankle and subtalar joint fusion, harvest of tibial bone graft and Achilles tendon lengthening. Her post op pain was reasonably controlled with oral Narcotics once the nerve block wore off. She developed urinary retention from anesthesia post operatively and required straight cath to empty urinary bladder. She was subsequently able to urinate on her before discharge. Patient was discharged home and was instructed to f/u with Podiatry and PCP. She was instructed to return to ED if she developed signs and symptoms of infection or worsening pain that was not amenable to oral analgesics. Status at Discharge Overall status at discharge: patient is back to baseline Time Spent with Patient Time attestation: Total time spent providing and/or coordinating discharge services: Time spent: greater than 30 minutes Exam Constitutional Vital Signs, click to edit/add: Last Vital Signs Temp 98.1 F 05/23/24 08:06 Pulse 72 05/23/24 08:06 Resp 18 05/23/24 08:06 BP 97/63 05/23/24 08:06 Pulse Ox 100 05/23/24 11:50 O2 Del Method Room Air 05/23/24 11:50 O2 Flow Rate 2 05/22/24 04:00 Documenting provider has reviewed patient's vital signs: yes Common normals: no apparent distress and oriented x3 General appearance: cooperative Respiratory Common normals: normal respiratory effort and clear to auscultation bilaterally Effort & inspection: able to speak in complete sentences Auscultation: clear to auscultation bilaterally Cardio Common normals: regular rate, S1 normal heart sound and S2 normal heart sound Rate: regular rate Heart sounds: S1 normal and S2 normal Neuro Common normals: oriented x3, moves all extremities and no focal motor deficits Psych Common normals: mental status grossly normal, denies hallucinations, denies homicidal ideation and denies suicidal ideation DS: Data Data Completed and Pending Labs on day of discharge: Labs from last 24 hours 05/23/24 05/23/24 05/22/24 11:33 07:47 22:08 POC Glucose 89 88 115 H 05/22/24 16:43 POC Glucose 140 H Discharge Plan Discharge Disposition: Home, Self-Care Condition: Good Discharge Medications: New oxycodone 5 mg tablet 5 mg PO Q6H PRN (Reason: pain) 3 Days Qty: 10 0RF No Action levothyroxine 50 mcg tablet 50 mcg PO DAILY minocycline 100 mg capsule 100 mg PO DAILY montelukast 10 mg tablet 10 mg PO .qhs Rezdiffra 100 mg tablet 100 mg PO DAILY zolpidem 10 mg tablet 10 mg PO QPM PRN (Reason: sleep) potassium chloride 20 mEq tablet extended release 40 meq PO DAILY metoprolol succinate 25 mg tablet extended release 24 hr 25 mg PO DAILY metformin 500 mg tablet extended release 24 hr 1,000 mg PO DAILY Ozempic 0.25 mg or 0.5 mg (2 mg/3 mL) pen injector 0.25 mg subcut QWEEK Rx Instructions: for 4 weeks Follow Up Appointments: Call Dr. Maldonado office on saturday to make follow up appointment # Activity: increase activity as tolerated Diet: advance to your usual diet Print Language: Vincentian Patient Instructions: Non Weight Bearing Activity (DC), Arthrodesis (DC) Discharge Date/Time: 05/23/24 17:19
[2024-05-23] MEDS: OXYCODONE HCL 5 MG TABLET PO (16:43)
[2024-05-23] MEDS: METFORMIN HCL 500 MG TAB.ER.24H 1000 MG PO (16:44)
--- OUTSIDE RECORDS SUMMARY | 2024-05-29 09:58 | XMS_ITS | CCD ---
Author Organization [facility] Care Team Providers Care Environmental Programs Specialist Name Role Phone PERICO MATTHEW H Admitting Unavailable PERICO MATTHEW H Attending Unavailable LENORA SANTOS Primary Care Unavailable ILANA MEDEIROS V Consulting Unavailable MATTHEW RIVER Consulting Unavailable Lenora SANTOS Primary Care Physician [phone] Adriana Maier Unavailable Unavailable THELMA Santos Primary Care Provider DO Regino Metcalf Emergency Provider Lenora Alvarez Unavailable Neli Slater MD Primary Care Provider Lenora Santos PA-C Unavailable [phone] THELMA Santos Primary Care Provider THELMA Dimas Emergency Provider Renetta Chavarria MD Primary Care Provider Lenora Sandy Unavailable DANNY Giordano Attending Provider Fibroscan, Temporary Attending Provider DANNY Conroy Referring Provider THELMA Santos Primary Care Provider THELMA Dimas Emergency Provider DANNY Giordano Attending Provider Fibroscan, Temporary Attending Provider UnavailDANNY Rodriguez Referring Provider MD Jorge Alberto Rowe Attending Provider THELMA Santos Primary Care Provider [phone] NANLOYDA, NEEHARIKA Referring Unavailable YUE, NELI A [...] Care Provider MD Kamilah Ward Attending Provider Hu Davis [...] Forest Gonzalez Admitting Unavaila Forest Jackson Attending Unavaila Forest Jackson Consulting Unavaila Forest Jackson Attending Unavaila Forest Jackson Referring UnavailForest Moreno Admitting UnavailMD Forest Moreno Consulting Unava ilForest Schmidt Consulting UnavailHu Kuhn Referring Unavailable DO Hu Davis Admitting Unavailabl Hu Melton Attending Unavailable MD Tank Xavier Attending Provider [phone] MD Tank Xavier Referring Provider LENORA SANTOS Attending Unavailable LENORA SANTOS Attending Unavailable LENORA SANTOS Attending Unavailable LENORA SANTOS Attending Unavailable LENORA SANTOS Attending Unavailable LENORA SANTOS Attending Unavailable LENORA SANTOS Attending Unavailable LENORA SANTOS Attending Unavailable MARGE ALMANZA Attending Unavailable LENORA SANTOS Attending Unavailable ERMA García Attending Provider Asaad, Imad Admitting Unavailable Asaad, Imad Attending Unavailable Lenora Santos Primary Care Unavailable Forest Giordano Admitting Unavailable Forest Giordano Attending Unavailable Lenora Santos Primary Care Unavailable Forest Giordano Referring Unavailable Lenora Santos Primary Care Unavailable Asaad, Imad Admitting Unavailable Asaad, Imad Attending Unavailable Jorge Alberto Rowe Admitting Unavailable Jorge Alberto Rowe Attending Unavailable Lenora Santos Primary Care Unavailable Tank Xavier Admitting Unavailable Tank Xavier Attending Unavailable Lenora Santos Primary Care Unavailable Allan Dimas Admitting Unavailable Allan Dimas Attending Unavailable Lenora Santos Primary Care Unavailable Koffi García Admitting Unavailable Koffi García Attending Unavailable Lenora Santos Primary Care Unavailable [...] Translations: [acetaminophen-hydr ocodone] Drug Allergy Hallucinations (finding) [facility] Sulfamethoxazole / Trimethoprim (1 source) Sulfamethoxazole / Trimethoprim; Translations: [sulfamethoxazole-t rimethoprim] Drug Allergy Weal (disorder) [facility] (20 sources) Acetaminophen / HYDROcodone; Translations: [acetaminophen-hydr ocodone] Drug Allergy 011 Hallucinations (finding), Other: See Comments [facility] (20 sources) Acetaminophen; Translations: [acetaminophen] Drug Allergy 023 Other: See Comments, [facility] (6 sources) HYDROcodone; Translations: [hydrocodone] Drug Allergy 023 Hallucinating [facility] (5 sources) Adhesive Tape; Translations: [ADHESIVE TAPE (ROSINS)] Allergy to substance 011 Rash, Itching [facility] Work Phone: (5 sources) Seasonal allergy; Translations: [SEASONAL ALLERGIES] Allergy to substance 011 Itching, Other: See Comments [facility] (7 sources) Acetaminophen / HYDROcodone; Translations: [HYDROCODONE-ACETAM INOPHEN] Drug Allergy 011 Hallucinations [facility] (6 sources) Other Allergy to substance 011 Itching, Other [facility] (6 sources) Wound Dressing Adhesive Drug Allergy 011 Itching, Rash [facility] (9 sources) Sulfamethoxazole / Trimethoprim; Translations: [sulfamethoxazole-t rimethoprim] Drug Allergy 024 Weal (disorder), Other [facility] (14 sources) Sulfamethoxazole; Translations: [sulfamethoxazole] Drug Allergy yeast infection [facility] (14 sources) Trimethoprim; Translations: [trimethoprim] Drug Allergy yeast infection [facility] Medications Current Medications Medication Drug Class(es) [...] oral tablet (8 sources) Quinolone Antimicrobial Start: 022 take 1 tablet by mouth once daily [...] oral tablet (20 sources) Muscle Relaxant Start: 024 take 1 tablet by mouth three times [...] 12, 2023 1:00am take 1 capsule by md ut once daily before breakfast levothyroxine 50 [...] with breakfast and two pills with dinner. metoprolol tartrate 25 mg oral tablet (6 sources) beta-Adrenergic Liza Start: 05-19-2024 Metoprolol Succinate Active 25 MG PO May 19, 2024 12:00am Start: 05-11-2024 take 1 tablet by vargas th once [...] tablet (20 sources) Leukotriene Receptor Antagonist Start: take 1 tablet by mouth once daily Montelukast Active 1 TAB PO Daily May 19, 2024 12:00am FreeTextSi tablet Orally Once a day; Note: Source Status: Taking; Provider: Kim Cooley ( ) Comment on above: Take 1 tablet by vargas th daily at bedtime. Potassium (1 source) Potassium Active potassium chloride 20 meq extended release oral tablet (20 sources) Start: take 1 tablet by mouth in the [...] day(s), # 21 tab(s), Refills(s) 0, Pharmacy: [id number], 162, cm, 08/12/23 11:38:00 EST, Height/Length Dosing, 125, kg, 08/12/23 11:38:00 EST, Weight Dosing Start Date: 08/12/23 Stop Date: 08/19/23 Status: Ordered Resmetirom (11 sources) Start: 03-17-2024 take 1 tablet by mouth once daily Resmetirom (Rezdiffra) 100 mg tablet Active 100 MG PO Daily March 17, 2024 12:00am resmetirom 100 MG Oral Tablet [Rezdiffra] (2 sources) Start: 03-03-2024 take 1 tablet by mouth once daily Rezdiffra 100 mg oral tablet 100 mg = 1 tab(s), Oral, Daily, Refills(s) 0 Start Date: 03/03/24 Status: Ordered Rezdiffra 100 MG tablet (4 sources) Start: 02-17-2024 Rezdiffra 100 MG tablet 02/17/2024 Active 0.25 mg, 0.5 mg dose 1.5 ml semaglutide 1.34 mg/ml pen injector (2 sources) semaglutide (Ozempic, 0.25 or 0.5 MG/DOSE,) 2 MG/1.5ML solution pen-injector Inject under the skin Active spironolactone 50 mg oral tablet (20 sources) Aldosterone Antagonist Start: 07-17-2017 take 50 mg by mouth once daily Spironolactone Active 50 MG PO Daily July 17, 2017 1:00am tamsulosin hydrochloride 0.4 mg oral capsule (3 sources) alpha-Adrenergic Liza Start: 05-19-2024 take 1 capsule by mouth once daily Tamsulosin Active 1 CAP PO Daily May 19, 2024 12:00am FreeTextSi capsule Orally Once a day; Note: Source Status: Taking; Provider: Kim Cooley ( ) take 1 capsule by [facility] every twenty-four hours Tamsulosin HCl 0.4 MG 1 capsule Orally Once a day Active zolpidem tartrate 10 mg oral tablet (20 sources) gamma-Aminobutyric Acid-ergic Agonist Start: 03-14-2011 End: 09-18-2023 take 1 tablet by mouth once daily at bedtime as needed for sleep zolpidem (Ambien) 10 MG tablet Indications: Primary insomnia TAKE 1 TABLET BY MOUTH ONCE DAILY AT BEDTIME NEEDED FOR SLEEP 90 tablet 1 11/07/2023 Active Comment on above: Take 1 tablet by mouth at bedtime as nee ded. for insomnia. Completed/Discontinued Medications Medication Drug Class(es) [...] mg tablet Discontinued 1 TAB PO Q6H 16 10August 12, 2023 December 06, 2023 9:17am Start: [...] Maintenance 4:1) 20 mEq/810 mL (potassium) solution (19 sources) Start: 09-19-2023 End: 10-18-2023 Cardioplegic No.20 (Maint 4:1) (Cardioplegia Maintenance 4:1) 20 mEq/810 mL (potassium) solution Discontinued ML PERFUSION September 19, 2023 1:00am October 18, 2023 2:03pm Start: 09-19-2023 Cardioplegic N o.20 (Maint 4:1) (Cardioplegia Maintenance 4:1) 20 mEq/810 mL (potassium) solution Active ML PERFUSION September 19, 2023 12:00am cephalexin 500 mg oral capsule (20 sources) Cephalosporin Antibacterial Start: 07-23-2017 End: 09-19-2023 take 1 capsule by mouth every eight hours Cephalexin (Keflex) 500 mg capsule Discontinued 500 MG PO Q8H 21 July 23, 2017 1:00am September 19, 2023 11:08am docusate sodium 50 mg / sennosides, fci 8.6 mg oral tablet (20 sources) Start: 07-23-2017 End: 09-19-2023 take 2 tablets by mouth twice daily Sennosides-Docusat e Sodium (Dok Plus) 8.6-50 mg Tablet Discontinued 2 TAB PO Twice daily 40 July 23, 2017 1:00am September 19, 2023 11:10am 72 hr fentaNYL 0.025 mg/hr transdermal system (20 sources) Opioid Agonist Start: 07-23-2017 End: 09-19-2023 Fentanyl Discontinued 25 MCG TRANSDERML Every 72 hours 5 14 July 23, 2017 1:00am September 19, 2023 11:09am ferrous sulfate 324 mg delayed release oral tablet (20 sources) Start: 07-23-2017 End: 09-19-2023 take 324 mg by mouth twice daily Ferrous Sulfate Discontinued 324 MG PO Twice daily 30 30 July 23, 2017 1:00am September 19, 2023 11:09am nebivolol 2.5 mg oral tablet (20 sources) Start: 07-17-2017 End: 05-19-2024 take 1 tablet by mouth once daily Nebivolol (Bystolic) 2.5 mg Tablet Discontinued 2.5 MG PO Daily July 17, 2017 1:00am May 19, 2024 1:06pm take 1 tablet by vargas th every twenty-four hours Bystolic 5 MG 1 tablet Orally Once a day Active Prednisone Dose Pack (20 sources) Start: 07-17-2017 End: 07-23-2017 Prednisone Dose Pack Discont inued July 17, 2017 12:00am July 23, 2017 5:18pm Start: 07-17-2017 End: 07-23-2017 Prednisone Dose Pack Discont inued July 17, 2017 1:00am July 23, 2017 6:18pm pregabalin 75 mg oral capsule (20 sources) Start: 09-20-2023 End: 12-06-2023 take 1 capsule by mouth twice daily Pregabalin (Lyrica) 75 mg capsule Discontinued 75 MG PO Twice daily October 18, 2023 12:00am December 06, 2023 9:18am Comment on above: Take 75 mg by mouth. Semaglutide (16 sources) Start: 04-24-2024 End: 05-19-2024 inject 0.25 mg by subcutaneous injection every week, then inject 0.5 mg by subcutaneous injection every week Semaglutide (Ozempic) 0.25 mg or 0.5 mg (2 mg/3 mL) pen injector Discontinued 0.25 MG SUBCUT every week 3 April 24, 2024 12:00am May 19, 2024 1:07pm for 4 weeks; then increase to 0.5 mg every week Start: 04-24-2024 inject 0.25 mg by marshall bcutaneous injection every week, then inject 0.5 mg by subcutaneous injection every week Semaglutide (Ozempic) 0.25 mg or 0.5 mg (2 mg/3 mL) pen injector Active 0.25 MG SUBCUT every week April 24, 2024 12:00am for 4 weeks; then increase to 0.5 mg every week Start: 03-30-2024 Semaglutide (O zempic) 0.25 mg or 0.5 mg (2 mg/3 mL) pen injector Active 0.5 MG SUBCUT every week 3 March 30, 2024 12:00am 0.5 mg for 4 weeks Semaglutide Base (20 sources) Start: 03-17-2024 End: 03-30-2024 inject 1 [...] week. traMADol hydrochloride 50 mg oral tablet (20 sources) Opioid Agonist Start: 08-12-2023 End: 10-18-2023 Tramadol Discontinued 50 MG PO As Directed August 12, 2023 1:00am October 18, 2023 2:04pm Problems Active Problems Problem Classification Problem Date Documented Da te Episodic/Chronic Anxiety disorders (6 sources) Anxiety; Translations: [Anxiety disorder, unspecified] Onset: 01-04-2023 01-04-2023 Chronic Diabetes mellitus without complication (16 sources) Type 2 diabetes mellitus; Translations: [Type 2 diabetes mellitus without complications] Onset: 05-04-2024 04-24-2024 Chronic Diabetes mellitus without complication (20 sources) Hyperglycemia; Translations: [Hyperglycemia, unspecified] Onset: 02-14-2023 02-14-2023 Episodic Essential hypertension (20 sources) Essential hypertension; Translations: [Essential (primary) hypertension] Onset: 01-04-2023 05-06-2023 Chronic Hepatitis (20 sources) Steatohepatitis; Translations: [Nonalcoholic steatohepatitis (MANRIQUEZ)] Onset: 03-06-2024 12-24-2023 Chronic Miscellaneous mental health disorders (7 sources) Primary insomnia; Translations: [Primary insomnia] Onset: 01-04-2023 01-04-2023 Chronic Mood disorders (20 sources) Depressive disorder; Translations: [Depression] Onset: 02-01-2023 12-11-2018 Chronic Osteoarthritis (10 sources) Degenerative joint disease of ankle AND/OR foot; Translations: [Primary osteoarthritis, unspecified ankle and foot] Onset: 03-20-2011 03-20-2011 Chronic Other aftercare (1 source) Other termite control technician (current) drug therapy; Translations: [Other snf (current) drug therapy] Onset: 05-04-2024 Episodic Other bone disease and musculoskeletal deformities (20 sources) Osteochondritis dissecans; 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] Onset: 02-01-2023 09-08-2019 Chronic Other bone disease and musculoskeletal deformities (10 sources) Osteochondritis dissecans of the talus; Translations: [Osteochondritis dissecans, unspecified ankle and joints of foot] Onset: 03-14-2011 03-14-2011 Chronic Other connective tissue disease (20 sources) Swelling of lower limb; Translations: [Other specified soft tissue disorders] 03-10-2023 Episodic Other inflammatory condition of skin (20 sources) Rosacea; Translations: [Rosacea, unspecified] Onset: 02-01-2023 09-08-2019 Chronic Other liver diseases (20 sources) Steatosis of liver; Translations: [Fatty (change of) liver, not elsewhere classified] Onset: 02-01-2023 06-09-2020 Chronic Other liver diseases (17 sources) Fatty (change of) liver, not elsewhere classified; Translations: [Other chronic nonalcoholic liver disease] Onset: 09-25-2023 09-19-2023 Chronic Other nervous system disorders (1 source) Paresthesia; Translations: [Paresthesia of skin] Onset: 12-15-2021 Episodic Other nervous system disorders (20 sources) Impaired cognition; Translations: [Other symptoms and signs involving cognitive functions and awareness] 03-10-2023 Episodic Other non-traumatic joint disorders (20 sources) Hip pain; Translations: [Pain in right hip] Onset: 09-20-2023 08-12-2023 Episodic Other nutritional; endocrine; and metabolic disorders (20 sources) Severe obesity; Translations: [Morbid (severe) obesity due to excess calories] Onset: 02-01-2023 09-08-2019 Chronic Other nutritional; endocrine; and metabolic disorders (16 sources) Body mass index 40+ - severely [...] Chronic Other nutritional; endocrine; and metabolic disorders (18 sources) Body mass index (BMI) 40.0-44.9, adult; [...] (pediatric)] Onset: 04-05-2023 Chronic Residual codes; unclassified (20 sources) Sleep apnea; Translations: [Sleep apnea, unspecified] Onset: 01-04-2023 05-06-2023 Chronic Residual codes; unclassified (18 sources) Sleep apnea, unspecified; Translations: [Unspecified sleep [...] Spondylosis; intervertebral disc disorders; other back problems (17 sources) Sciatica; Translations: [Sciatica, right side] Onset: [...] Episodic Chronic obstructive pulmonary disease and bronchiectasis (4 sources) Bronchitis; Translations: [Bronchitis, not specified as acute or chronic] Onset: 09-30-2023 09-30-2023 Episodic Fluid and electrolyte disorders (7 sources) Hypokalemia; Translations: [Hypokalemia] Onset: 12-15-2021 Episodic Genitourinary symptoms and ill-defined conditions (20 sources) Increased frequency of urination; Translations: [Frequency of micturition] Onset: 03-28-2022 Episodic Other and unspecified benign neoplasm (10 sources) Neuroma; Translations: [Benign neoplasm of peripheral nerves and autonomic nervous system, unspecified] Onset: 08-22-2011 08-22-2011 Episodic Other circulatory disease (20 sources) H/O: hypertension; Translations: [Personal history of other diseases of the circulatory system] Onset: 02-01-2023 12-11-2018 Episodic Other connective tissue disease (6 sources) Muscle pain; Translations: [Myalgia, unspecified site] Onset: 08-13-2023 08-13-2023 Episodic Other diseases of veins and lymphatics (6 sources) Venous stasis edema of right lower limb; Translations: [Venous insufficiency (chronic) (peripheral)] Onset: 06-13-2023 06-13-2023 Episodic Other non-traumatic joint disorders (10 sources) Arthralgia of the ankle and/or foot; Translations: [Pain in unspecified ankle and joints of unspecified foot] Onset: 03-14-2011 03-14-2011 Episodic Other non-traumatic joint disorders (10 sources) Instability of joint of left ankle; Translations: [Other instability, left ankle] Onset: 03-20-2011 03-20-2011 Episodic Other non-traumatic joint disorders (4 sources) Instability of joint of right ankle; Translations: [Other instability, right ankle] Onset: 04-23-2011 04-23-2011 Episodic Other non-traumatic joint disorders (6 sources) Pain in lower limb; Translations: [Pain in unspecified joint] Onset: 08-09-2023 08-09-2023 Episodic Other non-traumatic joint disorders (1 source) Pain in right knee; Translations: [Pain in right knee] Onset: 10-24-2023 Episodic Other nutritional; endocrine; and metabolic disorders (2 sources) Weight gain; Translations: [Abnormal weight gain] Onset: 02-01-2023 02-01-2023 Episodic Other nutritional; endocrine; and metabolic disorders (4 sources) Weight increased; Translations: [Abnormal weight gain] Onset: 02-01-2023 02-01-2023 Episodic Other screening for suspected conditions (not mental disorders or infectious disease) (20 sources) Patient encounter status; Translations: [Encounter for screening for malignant neoplasm of colon] Onset: 12-06-2023 09-14-2023 Episodic Other upper respiratory infections (6 sources) Acute frontal sinusitis; Translations: [Acute frontal sinusitis, unspecified] Onset: 06-13-2023 06-13-2023 Episodic Residual codes; unclassified (6 sources) Influenza vaccination status; Translations: [Personal history of other drug therapy] Onset: 02-01-2023 02-01-2023 Episodic Residual codes; unclassified (6 sources) Tobacco non-user; Translations: [Other specified health status] Onset: 02-01-2023 02-01-2023 Episodic Unclassified (1 source) Lumbar back pain M54.50 Viral infection (4 sources) Herpes zoster; Translations: [Zoster without complications] Onset: 10-04-2023 10-04-2023 Episodic Viral infection (1 source) Disease caused by 2019-nCoV; Translations: [COVID-19] Onset: 09-28-2023 Results Test Name Value Interpretation Reference Range Facility ALL CBC WITH AUTO DIFFon BASOPHILS ABSOLUTE AUTO 0.1 [facility] Basophils/100 WBC (Bld) 0.7 % 0.2 - 2.0 % [facility] Eosinophils/100 WBC (Bld) 1.7 % 0.9 - 7.0 % [facility] Erythrocyte distribution width (RBC) [Ratio] 12.1 % 11.0 - 15.0 % [facility] Hematocrit (Bld) [Volume fraction] 44.6 % 36.0 - 48.0 % [facility] Hemoglobin (Bld) [Mass/Vol] 15.4 g/dL 12.0 - 16.0 g/dL [facility] IMMATURE GRANULOCYTES ABS AUTO 0.01 [facility] Immature granulocytes/100 WBC (Bld) 0.1 % 0.0 - 0.5 % [facility] LYMPHOCYTES ABSOLUTE AUTO 3.6 [facility] Lymphocytes/100 WBC (Bld) 44.7 % 20.5 - 60.0 % [facility] MCH (RBC) [Entitic mass] 31.5 pg 26.7 - 34.0 pg [facility] MCHC (RBC) [Mass/Vol] 34.5 g/dL 29.9 - 35.2 g/dL [facility] MCV (RBC) [Entitic vol] 91.2 fL 81.0 - 99.0 fL [facility] MONOCYTES ABSOLUTE AUTO 0.7 [facility] Monocytes/100 WBC (Bld) 8.1 % 1.7 - 12.0 % [facility] NEUTROPHILS ABSOLUTE AUTO 3.6 [facility] Neutrophils/100 WBC (Bld) 44.7 % 43.0 - 75.0 % [facility] Platelet mean volume (Bld) [Entitic vol] 10.4 fL 9.5 - 13.5 fL [facility] RBC 4.89 [facility] WBC 8 [facility] ALL CBC WITH AUTO DIFFon BASOPHILS ABSOLUTE AUTO 0.1 [facility] Basophils/100 WBC (Bld) 1.0 % 0.2 - 2.0 % [facility] Eosinophils/100 WBC (Bld) 1.6 % 0.9 - 7.0 % [facility] Erythrocyte distribution width (RBC) [Ratio] 12.2 % 11.0 - 15.0 % [facility] Hematocrit (Bld) [Volume fraction] 46.1 % 36.0 - 48.0 % [facility] Hemoglobin (Bld) [Mass/Vol] 15.6 g/dL 12.0 - 16.0 g/dL [facility] IMMATURE GRANULOCYTES ABS AUTO 0.01 [facility] Immature granulocytes/100 WBC (Bld) 0.2 % 0.0 - 0.5 % [facility] Interpretation and review of laboratory results Abnormal [facility] LYMPHOCYTES ABSOLUTE AUTO 3.0 [facility] Lymphocytes/100 WBC (Bld) 47.8 % 20.5 - 60.0 % [facility] MCH (RBC) [Entitic mass] 31.3 pg 26.7 - 34.0 pg [facility] MCHC (RBC) [Mass/Vol] 33.8 g/dL 29.9 - 35.2 g/dL [facility] MCV (RBC) [Entitic vol] 92.6 fL 81.0 - 99.0 fL [facility] MONOCYTES ABSOLUTE AUTO 0.4 [facility] Monocytes/100 WBC (Bld) 7.0 % 1.7 - 12.0 % [facility] NEUTROPHILS ABSOLUTE AUTO 2.7 [facility] Neutrophils/100 WBC (Bld) 42.4 % Low 43.0 - 75.0 % [facility] Platelet mean volume (Bld) [Entitic vol] 10.6 fL 9.5 - 13.5 fL [facility] TBH EO # 0.1 [facility]H PLT 204 [facility] RBC 4.98 [facility] WBC 6.3 [facility] Creatinine [Mass/volume] in UrineOrdered By: Tank Xavier on 05-04-2024 Creatinine (U) [Mass/Vol] 165.00 mg/dL [facility] Comment on above: No reference range e stablished MicroAlb Creat Ratio,Uon Creatinine, Urine (Random) 165.00 mg/dL Normal [facility] Comment on above: Result Comment: No r eference range established Performed By: #### B 12, URMACRERAT #### [facility] [address] Microalbumin/Creatinine Ratio 4.8 mg/g Normal 0.0-30.0 [facility] Comment on above: Result Comment: 30-3 00 mg/g indicates an increased risk for diabetic nephropathy. Greater than 300 mg/g is consistent with clinical nephropathy. (Am. J. Kidney Disease 1995, 25:107) PERFORMED BY: [facility] [address] [place] [address] PATHOLOGIST [employer]SEM[employer]Z M.D. Performed By: #### B 12, URMACRERAT #### [facility] [address] [place] [address] [place] Microalbumin [Mass/volume] i n UrineOrdered By: Tank Xavier on 05-04-2024 Albumin DL <= 20 mg/L (U) [Mass/Vol] 0.8 mg/dL Normal 0.0-1.8 [facility] Comment on above: Performed By: #### B 12, URMACRERAT #### [facility] [address] Urine microalbumin/creatinin e mass ratioOrdered By: Tank Xavier on 05-04-2024 Albumin/Creatinine DL <= 20 mg/L (U) [Mass ratio] 4.8 mg/g 0.0-30.0 [facility] Comment on above: 30-300 mg/g indicate s an increased risk for diabetic nephropathy. Greater than 300 mg/g is consistent with clinical nephropathy. (Am. J. Kidney Disease 1995, 25:107) Vitamin B12 ser/plasOrdered By: Tank Xavier on 05-04-2024 Cobalamin (Vitamin B12) [Mass/Vol] 291 pg/mL Normal 180-914 [facility] Comment on above: Result Comment: PERF ORMED BY: [place] [address] PATHOLOGIST [employer] M.D. Performed By: #### B 12, URMACRERAT ####[facility] [id number] Alanine aminotransferase [En zymatic activity/volume] in Serum or PlasmaOrdered By: Imad Asaad on 04-30-2024 ALT [Catalytic activity/Vol] 66 U/L High 7-52 [facility] Comment on above: Performed By: #### C MP #### [facility] [address] [place] [address] [place] Albumin [Mass/volume] in Ser um or Plasma by Bromocresol green (BCG) dye binding methoOrdered By: Imad Asaad on 04-30-2024 Albumin BCG dye [Mass/Vol] 4.3 g/dL 3.5-5.7 [facility] Alkaline phosphatase [Enzyma tic activity/volume] in Serum or PlasmaOrdered By: Imad Asaad on 04-30-2024 ALP [Catalytic activity/Vol] 60 U/L Normal 34-104 [facility] Comment on above: Result Comment: PERF ORMED BY: [place] [address] PATHOLOGIST [employer] DIETZ M.D. Performed By: #### C MP #### [place] [address] [place] Aspartate aminotransferase [ Enzymatic activity/volume] in Serum or PlasmaOrdered By: Imad Asaad on 04-30-2024 AST [Catalytic activity/Vol] 60 U/L High 13-39 [facility] Comment on above: Performed By: #### C MP #### [place] [address] [place] Bilirubin.total [Mass/volume ] in Serum or PlasmaOrdered By: Imad Asaad on 04-30-2024 Bilirubin [Mass/Vol] 0.7 mg/dL Normal 0.3-1.0 [facility] Comment on above: Performed By: #### C MP #### [place] [address] [place] Calcium [Mass/volume] in Ser um or PlasmaOrdered By: Imad Asaad on 04-30-2024 Calcium [Mass/Vol] 9.7 mg/dL Normal 8.6-10.3 [facility] Comment on above: Performed By: #### C MP #### [place] [address] [place] Carbon dioxide, total [Moles /volume] in Serum or PlasmaOrdered By: Imad Asaad on 04-30-2024 CO2 [Moles/Vol] 26.6 mmol/L Normal 21.0-31.0 [facility] Comment on above: Performed By: #### C MP #### [place] [address] [place] Chloride [Moles/volume] in S nusrat or PlasmaOrdered By: Imad Asaad on 04-30-2024 Chloride [Moles/Vol] 107 mmol/L Normal 98-107 [facility] Comment on above: Performed By: #### C MP #### [facility] [address] Comprehensive Metabolic Pane seb 04-30-2024 Albumin [Mass/Vol] 4.3 g/dL Normal 3.5-5.7 [facility] Comment on above: Performed By: #### C MP #### [facility] [address] [place] [address] [place] GFR/1.73 sq M.predicted MDRD (S/P/Bld) [Vol rate/Area] mL/min/{1.73_m2} Normal [facility] Comment on above: Performed By: #### C MP #### [facility] [address] Creatinine [Mass/volume] in Serum or PlasmaOrdered By: Imad Asaad on 04-30-2024 Creatinine [Mass/Vol] 0.68 mg/dL Normal 0.60-1.20 [facility] Comment on above: Performed By: #### C MP #### [address] Glucose [Mass/volume] in Ser um or PlasmaOrdered By: Imad Asaad on 04-30-2024 Glucose [Mass/Vol] 92 mg/dL Normal 70-100 [facility] Comment on above: ADA recommended refe rence rangeRandom Glucose Reference Range is dependent on time and content of last meal. Glucose of more than 200 mg/dL in a nonstressed, ambulatory subject supports the diagnosis of Diabetes Mellitus. Result Comment: [place] om Glucose Reference Range is dependent on time and content of last meal. Glucose of more than 200 mg/dL in a nonstressed, ambulatory subject supports the diagnosis of Diabetes Mellitus. ADA recommended reference range Performed By: #### C MP #### [address] No Panel InformationOrdered By: Imad Asaad on 04-30-2024 Estimated GFR (CKD-EPI) > 60.0 mL/Min [facility] Creatinine Clearance (Chem N/A [facility] Potassium [Moles/volume] in Serum or PlasmaOrdered By: Imad Asaad on 04-30-2024 Potassium [Moles/Vol] 4.2 mmol/L Normal 3.5-5.1 [facility] Comment on above: Performed By: #### C MP #### [address] Protein [Mass/volume] in Ser um or PlasmaOrdered By: Imad Asaad on 04-30-2024 Protein [Mass/Vol] 6.9 g/dL Normal 6.4-8.9 [facility] Comment on above: Performed By: #### C MP #### [address] Serum globulin measurement b y calculation (mass/volume)Ordered By: Imad Asaad on 04-30-2024 Globulin (S) [Mass/Vol] 2.6 g/dL Normal [facility] Comment on above: Performed By: #### C MP #### [address] Serum or plasma albumin/glob ulin mass ratioOrdered By: Imad Asaad on 04-30-2024 Albumin/Globulin [Mass ratio] 1.7 {ratio} Normal [facility] Comment on above: Performed By: #### C MP #### [address] Serum or plasma anion gap de terminationOrdered By: Imad Asaad on 04-30-2024 Anion gap [Moles/Vol] 9.6 mmol/L Normal 6.0-15.0 [facility] Comment on above: Performed By: #### C MP #### [address] Sodium [Moles/volume] in Ser um or PlasmaOrdered By: Imad Asaad on 04-30-2024 Sodium [Moles/Vol] 139 mmol/L Normal 136-145 [facility] Comment on above: Performed By: #### C MP #### [address] Urea nitrogen [Mass/volume] in Serum or PlasmaOrdered By: Kamilah Ward on 04-30-2024 Urea nitrogen [Mass/Vol] 14 mg/dL Normal 02-26 [facility] Comment on above: Performed By: #### C MP #### [address] Glucose Tolerance 2 Houron 0 03-28-2024 Glucose Tolerance 2 Hour High [facility] Comment on above: Result Comment: FAST ING 112 H Col: 03/28/24726 1HR GLU 213 Col: 03/28/24826 2HR GLU 242 Col: 03/28/24926 NON-GESTATIONAL GESTATIONAL FASTING 70-100 < 92 1 HOUR < 200 < 180 2 HOUR < 140 < 153 PERFORMED BY: [place] [address] PATHOLOGIST ASSEMBL[employer] UN[employer] DIETZ M.D. Performed By: #### G TT2 ####[place] [id number] [facility] Serum or plasma glucose courtney urement 2 hours post 75 gm oral glucose (mass/volume)Ordered By: Tank Xavier on 03-28-2024 Glucose 2 Hr post 75 g glucose PO [Mass/Vol] See comment [facility] Comment on above: FASTING 112 H Col: 0 03/28/24726 1HR GLU 213 Col: 03/28/24826 2HR GLU 242 Col: 03/28/24926 A1C with Estimated Average G luon 03-06-2024 Glucose [Mass/Vol] 131 mg/dL Normal [facility] Comment on above: Result Comment: PERF ORMED BY: [place] [address] PATHOLOGIST ASSEM[employer] UN[employer] DIETZ M.D. Performed By: #### E LF #### [facility] , #### LIPID, A1C WTH eA #### [place] [id number] [facility] Cholesterol [Mass/volume] in Serum or PlasmaOrdered By: Kamilah Ward on 03-06-2024 Cholesterol [Mass/Vol] 152 mg/dL Normal 140-200 [facility] Comment on above: Chol less than 200 m g/dl low riskChol 201-239 mg/dl borderline riskChol 240 mg/dl and greater high risk Result Comment: Chol less than 200 mg/dl low risk Chol 201-239 mg/dl borderline risk Chol 240 mg/dl and greater high risk Performed By: #### E LF #### [facility] , #### LIPID, A1C WTH eA #### [facility] [address] [place] [address] [facility] Cholesterol in LDL Calc [Mas s/Vol]Ordered By: Kamilah Ward on 03-06-2024 Cholesterol in LDL [Mass/Vol] 78 mg/dL 0-100 [facility] Comment on above: LDL ATP III CLASSIFI CATIONLDL less than 100 mg/dL OptimalLDL 100-129 mg/dL Near or above optimalLDL 130-159 mg/dL Borderline highLDL 160-189 mg/dL HighLDL greater than 189 mg/dL Very high Cholesterol in VLDL Calc [Ma ss/Vol]Ordered By: Kamilah Ward on 03-06-2024 Cholesterol in VLDL [Mass/Vol] 20 mg/dL [facility] Enhanced Liver Fibrosis Test on 03-06-2024 Enhanced Liver Fibrosis Score 10.94 High <9.80 [facility] Comment on above: Result Comment: [...] trials. J Hepatol. 2020 Feb;73(1):26-39. Performed at: [facility] [address] [id number] [employer] Maker: Leyla Britt MD, Phone: [phone] PERFORMED BY: [place] [address] PATHOLOGIST ASSEMBL[employer] UN[employer] DIETZ M.D. Performed By: #### E LF #### [facility] , #### LIPID, A1C WT eA #### [address] Glucose mean value [Mass/vol ume] in Blood Estimated from glycated hemoglobinOrdered By: Kamilah Ward on 03-06-2024 Average glucose Estimated from glycated hemoglobin (Bld) [Mass/Vol] 131 mg/dL [facility] Hemoglobin A1c percentageOrd ered By: jaspreet Ward on 03-06-2024 HbA1c (Bld) [Mass fraction] 6.2 % High 4.3-5.6 [facility] Comment on above: Increased risk for d iabetes: 5.7 - 6.4diabetes: >6.4glycemic control for adults with diabetes: <7.0 Result Comment: Incr eased risk for diabetes: 5.7 - 6.4 diabetes: >6.4 glycemic control for adults with diabetes: <7.0 Performed By: #### E LF #### [facility] , #### LIPID, A1C WTH eA #### [address] Lipid Panelon 03-06-2024 LDL Cholesterol,Calculated 78 mg/dL Normal 0-100 [facility] Comment on above: Result Comment: LDL ATP III CLASSIFICATION LDL less than 100 mg/dL Optimal LDL 100-129 mg/dL Near or above optimal LDL 130-159 mg/dL Borderline high LDL 160-189 mg/dL High LDL greater than 189 mg/dL Very high Performed By: #### E LF #### [facility] , #### LIPID, A1C WTH eA #### [facility] [address] [place] [address] Triglyceride w/Reflex 102 mg/dL Normal 0-149 [facility] Comment on above: Result Comment: TRIG ATP III CLASSIFICATION TRIG less than 150 mg/dL Normal TRIG 150-199 mg/dL Borderline high TRIG 200-500 mg/dL High TRIG greater than 500 mg/dL Very high Standard traceable to the Center for Disease Conrtrol and Prevention (CDC) test method. Performed By: #### E LF #### [facility] , #### LIPID, A1C WTH eA #### [facility] [address] [place] [address] VLDL CHOLESTEROL 20 mg/dL Normal [facility] Comment on above: Performed By: #### E LF #### [facility] , #### LIPID, A1C WT eA #### [address] Serum or plasma high density lipoprotein (HDL) cholesterol measurementOrdered By: Imad Asaad on 03-06-2024 Cholesterol in HDL [Mass/Vol] 54 mg/dL Normal 23-92 [facility] Comment on above: HDL CHOL ATP-III CLA SSIFICATION Cardiovascular RiskHDL > or equal to 60 mg/dL LOWHDL < 40 mg/dL HIGH Result Comment: HDL CHOL ATP-III CLASSIFICATION Cardiovascular Risk HDL > or equal to 60 mg/dL LOW HDL < 40 mg/dL HIGH Performed By: #### E LF #### [facility] , #### LIPID, A1C WT eA #### [address] Serum or plasma total choles terol/high density lipoprotein (HDL) cholesterol mass ratOrdered By: Imad Asaad on 03-06-2024 Cholesterol.total/Nanci sterol in HDL [Mass ratio] 2.8 {ratio} Normal <5.0 [facility] Comment on above: Result Comment: PERF ORMED BY: [place] [address] PATHOLOGIST ASSEMBL[employer] UN[employer]INE DIETZ M.D. Performed By: #### E LF #### [facility] , #### LIPID, A1C WTH eA #### [facility] [address] [place] [id number] [facility] Triglyceride [Mass/volume] i n Serum or PlasmaOrdered By: Imjaspreet Ward on 03-06-2024 Triglyceride [Mass/Vol] 102 mg/dL 0-149 [facility] Comment on above: TRIG ATP III [...] DEJAH DYKES/Sex: 1970 Female Med Rec #: [id number] Physician: Hu Davis DO Financial #: [id number] Pt. Type: P Room/Bed: / Admit/Disch: 03/03/24 [...] Martino RN Role Performed Surgeon - Primary Special Investigation Unit Investigator - Primary Scrub - Primary Time In 03/03/24 14:49:00 03/03/24 14:49:00 03/03/24 14:49:00 Time Out 03/03/24 14:58:00 03/03/24 14:58:00 03/03/24 14:58:00 Procedure TRANSFORAMINAL EPIDURAL TRANSFORAMINAL EPIDURAL TRANSFORAMINAL EPIDURAL STEROID STEROID STEROID INJECTIO(Bilateral) INJECTIO(Bilateral) INJECTIO(Bilateral) Comments Last Modified By: Mac DOHERTY, MelindaMelinda Deluna RN, RN, Kayla J 03/03/24 14:57:20 03/03/24 14:57:20 03/03/24 14:57:20 Entry 4 Case Attendee Layton Harvey Role Performed Motorcoach Operator Time In 03/03/24 14:49:00 Time Out 03/03/24 [...] Llanes RN, Ryan Lamar DO, Bradford A., Roll [...] and tissue Entry 1 Skin Integrity Intact, Crawford, Warm, & Skin Abnormality No Dry Outcomes [...] Safety Strap (more content not included)... Normal [facility] Main OR Preoperative Recordo n 03-03-2024 Main OR Preoperative Record Main OR Preoperative Record Holding Area Document Type FTPM Summary Primary Physician: Hu Davis DO Finalized Date/Time: 03/03/24 13:55:55 Pt. Name: DEJAH DYKES/Sex: 1970 Female Med Rec #: [id number] Physician: Hu Davis DO Financial #: [id number] Pt. Type: P Room/Bed: / Admit/Disch: 03/03/24 [...] 13:55 Zofia Reyes RN 03/03/24 13:55 Normal [facility] Consent for Treatmenton 01-04 Consent for Treatment [id number]#1.00TIFF Normal [facility] Consultation Noteon 01-29-20 Consultation Note Patient: [...] symptoms. She has taken a multitude of hgox-zys-cvqignl medication without improvement. The most that she [...] Insomnia, # 30 tab(s), Refills(s) 1, [id number], cm, 09/08/19 14:29:00 EST, Height/Length [...] Daily, # 100 cap(s), Refills(s) 1, Pharmacy: [id number] Documented Medications Documented Singulair: 10 mg, Oral, qPM, Refills(s) 0, Allergy symptoms levothyroxine 50 mcg (0.05 mg) Tab: Refills(s) 0 metformin: 500 mg, Oral, QID, Refills(s) 0 potassium chloride 10 mEq ER Tab: 10 mEq = 1 tab(s), Oral, BID, Prophylaxis Problem list: All Problems Lumbar disc herniation / SNOMED CT 051347943 / Confirmed L4-5 fusion Allergic rhinitis, seasonal / SNOMED CT 489198380 / Confirmed H/O: HTN (hypertension) / SNOMED CT 412464703 / Confirmed Depression / SNOMED CT 235471861 / Confirmed Fatty liver / SNOMED CT 388527075 / Confirmed Acne rosacea / SNOMED CT 9134688628 / Confirmed Osteochondritis dissecans / 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 / Confirmed Class 3 severe obesity with body mass index (BMI) of 40.0 to 44.9 in adult / SNOMED CT 0315013757 / Confirmed Non-tobacco user / SNOMED CT 652523908 / Confirmed Influenza vaccination up to date / SNOMED CT 617353471 / Confirmed Urine frequency / SNOMED CT 454263773 / Confirmed Kidney stones / SNOMED CT 672485896 / Confirmed Frequent UTI / SNOMED CT 011619828 / Confirmed Resolved: DVT / SNOMED CT 958353134 Resolved: Kidney stones / SNOMED CT 692DA799-O527-1419-C5M1-5G 51R32PIW58 Objective Vital Signs 01/29/2024 8:14 EDT Peripheral Pulse Rate 66 bpm Respiratory Rate 14 br/min Systolic Blood Pressure 128 mmHg Diastolic Blood Pressure 73 mmHg Mean Arterial Pressure, Cuff 91 mmHg General: Alert and oriented, No acute distress. Eye: Normal conjunctiva. HENT: Normocephalic, Normal hearing. Cardiovascular: No edema. Musculoskeletal Normal range of motion. Normal strength. 5/5 lower extremity strength Integumentary: Warm, Dry, Crawford. Neurologic: Alert, Oriented. Psychiatric: Cooperative, Appropriate mood [...] are maintained. (more content not included)... Normal [facility] Comment on above: Result Comment: Elec tronically Signed By: Yesica RENEE, Tamiko\.br\Date and Time Signed: 01/29/24 08:33 EDT Office/Clinic Note-Physician on 01-29-2024 Office/Clinic Note-Physician [id number]#1.00TIFF Normal [facility] Office/Clinic Note-Physician [id number]#1.00TIFF Normal [facility] Patient Correspondenceon Patient Correspondence [id number]#1.00TIFF Normal [facility] Patient Correspondence [id number]#1.00TIFF Normal [facility] Patient History Officeon Patient History Office [id number]#1.00TIFF Normal [facility] SURGICAL PATHOLOGY REFERENCE LAB CONSULTon 12-16-2023 CASE REPORT Normal [facility] Comment on above: Order Comment: Speci men Type: FORMALIN-FIXED PARAFFIN-EMBEDDED TISSUE SPECIMEN Ordering Facility: [facility] Address: [address] [place] [phone] Result Comment: Surg ica Pathology Report Case: [id number] Authorizing Provider: Carlitos Ramesh MD Collected: 12/16/2023 02:45 PM Ordering Location: [facility] Main Received: 12/16/2023 02:44 PM [facility] Pathologist: Gely Wells MD Specimen: Slide(s), 11 SLIDES [id number] Performed By: #### L [id number] #### [facility] CLIA [id number] [address] [place] [address] CLINICAL HISTORY CONSULT REQUESTED [facility] Comment on above: Order Comment: Speci men Type: FORMALIN-FIXED PARAFFIN-EMBEDDED TISSUE SPECIMEN Ordering Facility: [facility] Address: [address] [place] [address] Performed By: #### L [id number] #### [facility] CLIA [id number] [address] [place] [address] DIAGNOSIS COMMENT Normal [facility] Comment on above: Order Comment: Speci men Type: FORMALIN-FIXED PARAFFIN-EMBEDDED TISSUE SPECIMEN Ordering Facility: [facility] Address: [address] [place] [address] Result Comment: Than k you for allowing [...] do not hesitate to contact us at [phone] with questions or if additional follow-up information becomes available. This case was reviewed in conjunction with the GI pathology fellow, Luis Mccauley M.D. Performed By: #### L [id number] #### [facility] CLIA [id number] [address] [place] [address] FINAL DIAGNOSIS Normal [facility] Comment on above: Order Comment: Speci men Type: FORMALIN-FIXED PARAFFIN-EMBEDDED TISSUE SPECIMEN Ordering Facility: [facility] Address: [address] [place], [place] [address] Result Comment: Live r, biopsy (A1, special stains): - Steatohepatitis with patchy bridging fibrosis. - See comment. Performed By: #### L [id number] #### [facility] CLIA [id number] [address] [place] [address] [place] FINAL PERFORMING LAB Normal [facility] Comment on above: Order Comment: Speci men Type: FORMALIN-FIXED PARAFFIN-EMBEDDED TISSUE SPECIMEN Ordering Facility: [facility] Address: [address] [place], [place] [address] Result Comment: Diag nostic interpretation performed at [facility], [address] [place] [address] CLIA# [id number] Unarmed Security Officer: Krunal Ferguson M.D. Performed By: #### L [id number] #### [facility] CLIA [id number] [address] [place] [address] [place] Activated partial thrombopla stin time (aPTT) in platelet poor plasma by coagulation aOrdered By: Forest Giordano on 12-06-2023 aPTT Coag (PPP) [Time] 28.6 s 25.1-36.5 [facility] Comment on above: A hematocrit value g reater than 55% may lead to inaccurate results in coagulation testing. Patients having hematocrit values >55% require a special collection tube for coagulation studies. Please contact the laboratory at [phone] guided biopsy[address] guided biopsy [facility] [place] [address] CT Scan Report Signed Patient: Dejah Dykes MR#: [id number] : 1970 Acct:[id number] Age/Sex: 53 / F ADM Date: 12/06/23 Loc: CT Room: Type: [facility] Attending Dr: Forest Giordano APRN Copies to: [...] biopsy. Impression dictated by: Brian Walton Jr., D.OoGrge12/06/2023 1:59 PM Dictation Location: [place] [address] Transcribed By: [facility] 12/06/23 1359 Dictated By: Brian Walton Jr, DO 12/06/23 1355 Signed By: 12/06/23 1359 Normal [facility] Coagulation Profileon 2023 aPTT Coag (Bld) [Time] 28.6 s Normal 25.1-36.5 [facility] Comment on above: Order Comment: STAT FOR BX Result Comment: A he matocrit value greater than 55% may lead to inaccurate results in coagulation testing. Patients having hematocrit values >55% require a special collection tube for coagulation studies. Please contact the laboratory at [phone] for redraw instructions. PERFORMED BY: [place] [address] PATHOLOGIST ASSEMBLER UN[employer] DIETZ M.D. Performed By: #### P P, PLT #### [facility] [address] [place] [address] INR in Platelet poor plasma by Coagulation assayOrdered By: Forest Giordano on 12-06-2023 INR Coag (PPP) [Relative time] 1.0 {INR} Normal [facility] Comment on above: INR Therapeutic Rang [...] Performed By: #### P P, PLT #### [facility] [address] [place] [address] Seb 12-06-2023 L Specimen: [id number] Received: 12/06/23 Status: NAKUL Sanchez Num: [id number] Spec Type: Surgical Subm Dr: Brian Walton Jr, DO Tissues: A Liver - Needle Biopsy (LFT LIVER, RANDOM BX) Procedures: Trichrome, Reticulum I, Iron, HE/3, Gross/Micro L5, CK 7, PAS - Hemat, PAS - Diastase Age/ Patient Sex Location Account Attending Physician Dejah Dykes 53/F CT [id number] Forest Giordano APRN SPEC NUM: [id number] RECD: 12/06/23 STATUS: NAKUL SANCHEZ NUM: [id number] LEONEL: 12/06/23 [facility] DR: Brian Walton Jr, ENTERED: 12/06/23 [facility] DR: Forest Giordano APRN SPEC TYPE: Surgical DEPT: S ORDERED: Trichrome, Reticulum I, Iron, HE/3, Gross/Micro L5, CK 7, PAS - Hemat, PAS - Diastase ORDERED: Trichrome, Reticulum I, Iron, HE/3, Gross/Micro L5, CK 7, PAS - Hemat, PAS - Diastase Supplemental Report Addendum 1 Entered: 12/25/23 Supplemental for findings of consultation report from [facility]: FINAL DIAGNOSIS: -Steatohepatitis with patchy [...] the needle core biopsy of note Specimen: [id number] Received: 12/06/23 Status: ELENA Shonda Num: [id number] Spec Type: Surgical Subm Dr: Brian Walton Jr, Tissues: A Liver - Needle Biopsy (LFT LIVER, RANDOM BX) Procedures: Trichrome, Reticulum I, Iron, HE/3, Gross/Micro L5, CK 7, PAS - Hemat, PAS - Diastase Patient: Dejah Dykes [id number] (Continued) Specimen: [id number] Received: 12/06/23 (Continued) Supplemental Report (Continued) Signed (signature on file) Bonilla Ramesh MD 12/12/23 1143 Specimen: [id number] Received: 12/06/23 Status: NAKUL Sanchez Num: [id number] Spec Type: Surgical Subm Dr: Brian Walton Jr, DO Tissues: A Liver - Needle Biopsy (LFT LIVER, RANDOM BX) Procedures: Trichrome, Reticulum I, Iron, HE/3, Gross/Micro L5, CK 7, PAS - Hemat, PAS - Diastase Patient: Dejah Dykes [id number] (Continued) Specimen: [id number] Received: 12/06/23-1131 (Continued) Supplemental Report (Continued) Addendum Signed (signature on file) Carlitos-Gio Ramesh MD 12/25/23 0950 Pathological Diagnosis Random [...] s (more content not included)... Normal [facility] Platelets [#/volume] in Bloo d by Automated countOrdered By: Forest Giordano on 12-06-2023 Platelets (Bld) [#/Vol] 211 10*3/uL Normal 150-450 [facility] Comment on above: Order Comment: STAT FOR BX Result Comment: PERF ORMED BY: [place] [address] PATHOLOGIST ASSEMBLER UNIT LORRAINE DIETZ M.D. Performed By: #### P P, PLT #### [facility] [address] [place] [address] Prothrombin time (PT)Ordered By: Forest Giordano on 12-06-2023 PT Coag (PPP) [Time] 11.3 s Normal 9.0-12.9 [facility] Comment on above: A hematocrit value g reater than 55% may lead to inaccurate results in coagulation testing. Patients having hematocrit values >55% require a special collection tube for coagulation studies. Please contact the laboratory at [phone] for redraw instructions. Order Comment: STAT FOR BX Result Comment: A he matocrit value greater than 55% may lead to inaccurate results in coagulation testing. Patients having hematocrit values >55% require a special collection tube for coagulation studies. Please contact the laboratory at [phone] for redraw instructions. Performed By: #### P P, PLT #### [facility] [address] [place] [address] CNOVon 11-11-2023 CNOV Office Visit (STED) -- DEJAH DYKES ([id number]) 1970 F Date Time Provider Department 11/11/23 [...] recently diagnosed with liver cirrhosis and her correctional facility psychiatrist and rheumatology both recommended to consider bariatric [...] for considering bariatric (weight loss) surgery at [facility] is to watch the online seminar on the following website. Registration to the weight loss program will also be done online. [email or web address] Alternatively, to schedule appointment, please call Order Specific Question: Have you discussed weight management with your patient? Answer: Yes Order Specific Question: Are you requesting assessment for possible Bariatric Surgery for your patient? Answer: Yes Order Specific Question: Does consulting provider have [facility] Epic access? Answer: Yes Follow up PRN Signed: Alfredo Cruz MD Endocrinology and Metabolism [place] [facility] Hospital & [facility] Alfredo Cruz MD 11/11/2023 9:20 AM Signed BARIATRIC REFERRAL The first step for considering bariatric (weight loss) surgery at [facility] is to watch the online seminar on the following website. Registration to the weight loss program will also be done online. [email or web address] Links: [email or web address]*1ly 7- el6*_ga*WjSmHkY5QKOhIn3nCq H1Gco3YXg1*_ga_HWJ092SPKP* [id number] (more content not included)... Normal [facility] Consent for Procedure/Surger yon 10-30-2023 Consent for Procedure/Surgery [id number]#1.00TIFF Normal [facility] Consent for Treatmenton 10-04 Consent for Treatment [id number]#1.00TIFF Normal [facility] Discharge Instructionson Discharge Instructions [id number]#1.00TIFF Normal [facility] IntraOperative Documentson 0 10-30-2023 IntraOperative Documents [id number]#1.00TIFF Normal [facility] IntraOperative Documents [id number]#1.00TIFF [facility] Main OR Intraoperative Recor don 10-30-2023 Main OR Intraoperative Record IntraOp Document Type FTPM Summary Primary Physician: Hu Davis DO Finalized Date/Time: 10/30/23 11:28:27 Pt. Name: DEJAH DYKES/Sex: 1970 Female Med Rec #: [id number] Physician: Hu Davis DO Financial #: [id number] Pt. Type: P Room/Bed: / Admit/Disch: 10/30/23 09:52:23 - Institution: Case Times FTPM Entry 1 Patient Times In Room 10/30/23 11:17:00 Out Room 10/30/23 11:29:00 Procedure Times Start 10/30/23 11:20:00 Stop 10/30/23 11:28:00 Anesthesia Times Last Modified By: Melinda Watts RN 10/30/23 11:28:22 Case Attendance FTPM Entry 1 Entry 2 Entry 3 Case Attendee Hu Davis DO, RN, Melinda dAames RN, Rita Lares Role Performed Surgeon - Primary Special Investigation Unit Investigator - Primary Scrub - Primary Time In 10/30/23 11:17:00 10/30/23 11:17:00 10/30/23 11:17:00 Time Out 10/30/23 11:29:00 10/30/23 11:29:00 10/30/23 11:29:00 Procedure TRANSFORAMINAL EPIDURAL TRANSFORAMINAL EPIDURAL TRANSFORAMINAL EPIDURAL STEROID INJECTIO(Right) STEROID INJECTIO(Right) STEROID INJECTIO(Right) Comments Last Modified By: Mac DOHERTY, Melinda Watts RN, Melinda Keenan RN 10/30/23 11:28:23 10/30/23 11:28:23 10/30/23 11:28:23 Entry 4 Case Attendee Dean Hayden Role Performed Motorcoach Operator Time In 10/30/23 11:17:00 Time Out 10/30/23 [...] X-ray Applicable) PreOp Antibiotic No Time Out Mac DOHERTY, Melinda Little, Given Participants Zacarias DOHERTY, Ryan Plascencia DO, [...] Procedure Yes Primary Surgeon Hu Davis DO 10/30/23 11:20:00 Stop 10/30/23 11:28:00 Anesthesia Type [...] and tissue Entry 1 Skin Integrity Intact, Crawford, Warm, and Skin Abnormality No Dry Outcomes [...] Points C (more content not included)... Normal [facility] Main OR Preoperative Recordo n 10-30-2023 Main OR Preoperative Record Holding Area Document Type FTPM Summary Primary Physician: Hu Davis DO Finalized Date/Time: 10/30/23 10:19:44 Pt. Name: DYKESSHEYGEORGINA Elizondo/Sex: 1970 Female Med Rec #: [id number] Physician: Hu Davis DO Financial #: [id number] Pt. Type: P Room/Bed: / Admit/Disch: 10/30/23 [...] By: Krystina Madden RN 10/30/23 10:19 Normal [facility] Insurance Correspondence Off 10-29-2023 Insurance Correspondence Office [id number]#2.00TIFF Normal [facility] Patient Correspondenceon Patient Correspondence [id number]#1.00TIFF Normal [facility] XR knee RT 3V - NOT FOR ER U Raoul 10-24-2023 XR knee RT 3V - NOT FOR ER USE [facility] [place] [address] XRay Report Signed Patient: Dejah Dykes MR#: [id number] : 1970 Acct:[id number] Age/Sex: 53 / F ADM Date: 10/24/23 Loc: ICXD Room: Type: [facility] Attending Dr: Jorge Alberto Rowe MD [...] Ranjeet Zheng M.D.10/24/2023 5:06 PM Dictation Location: [place] [address] Transcribed By: [facility] 10/24/231705 Dictated By: Ranjeet Zheng DO 10/24/231704 Signed By: 10/24/23 170 Normal [facility] Insurance Correspondence Off 10-18-2023 Insurance Correspondence Office [id number]#1.00TIFF Normal [facility] Consent for Treatmenton 10-03 Consent for Treatment [id number]#1.00TIFF Normal [facility] Consultation Noteon 10-17-19 Consultation Note Patient [...] for this as well as 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 [facility] Comment on above: Result Comment: Elec tronically Signed By: Hu Davis DO\.br\Date and Time Signed: 10/17/23 09:22 EDT HIPAA Forms Officeon 024 HIPAA Forms Office [id number]#1.00TIFF [facility] Legal Correspondence Officeo n 10-17-2023 Legal Correspondence Office [id number]#1.00TIFF [facility] Legal Correspondence Office [id number]#1.00TIFF Normal [facility] Office/Clinic Note-Physician on 10-17-2023 Office/Clinic Note-Physician [id number]#1.00TIFF Normal [facility] Patient Correspondenceon Patient Correspondence [id number]#1.00TIFF Normal [facility] Patient Correspondence [id number]#1.00TIFF Normal [facility] Patient Correspondence [id number]#1.00TIFF Normal [facility] Patient Correspondence [id number]#1.00TIFF Normal [facility] Patient Correspondence [id number]#1.00TIFF Normal [facility] Patient History Officeon Patient History Office [id number]#1.00TIFF Normal [facility] PT - Orderson 10-14-2023 PT - Orders [id number]#1.00TIFF Normal [facility] Reportability Response - [facility] Healthon 10-01-2023 Reportability Response - Public Health {[id number]-a [id number]-[id number]-c8}XML Normal [facility] Consent for Treatmenton 09-06 Consent for Treatment [id number]#1.00TIFF Normal [facility] Discharge Instructionson Discharge Instructions [id number]#1.00TIFF Normal [facility] ED Clinical Summaryon 2023 ED Clinical Summary (Inserted Image. Carrie ble to display) [address] [address] ED Clinical Summary Person Information Name: DEJAH DYKES/New_Julian Age: 53 Years : 1970 Sex: Female Language: Ukrainian PCP: Lenora SANTOS PA-C Marital Status: Visit [...] 09/28/2023 15:53:43 09/28/2023 15:53:43 ADDRESS: [facility] [id number] PHYS DOC NOTES: MEDICAL INFORMATION: Prescriptions Given: [...] With: Address: When: TOM RENEE, Lenora Little, [facility] [address] [place] [address] In 3 days 10/01/2023 DIAGNOSIS: 1:SHANAE [facility] ED Note-Physicianon 09-28-19 ED Note-Physician Basic Information Time Seen: Eric RENEE Lara E. 09/28/2023 15:20 Chief Complaint Pt states that [...] the nursing notes. 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 Patient seen for hypertension. 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 Problem List/Past Medical History Ongoing Acne rosacea Class 3 severe obesity with body mass index (BMI) of 40.0 to 44.9 in adult Frequent UTI Influenza vaccination up to date Kidney stones Non-tobacco user Osteochondritis dissecans Urine frequency Historical DVT Kidn (more content not included)... Normal [facility] Comment on above: Result Comment: Elec tronically Signed By: Lara Reyes PA-C\.br\Date and Time Signed: 09/28/23 15:38 EST\.br\Electronically Co-Signed By: Cody Young M.D.\.br\Date and Time Co-Signed: 09/28/23 19:52 EST ED Patient Summaryon 024 ED Patient Summary (Inserted Image. Carrie ble to display) [place] [address] Patient Discharge Instructions Person Information Name: DEJAH DYKES Age: 53 Years Arrival Date: 09/28/2023 14:44:25 Discharge Diagnosis: 1:COVID Primary Care Physician: Lenora SANTOS PA-C Provider Information Primary Provider: Cody Young M.D. Advanced Regulator Operator:Lara Reyes PA-C The exam and treatment you received in the Emergency Department were for an urgent problem and are not intended as complete care. It is important that you follow up with a doctor, nurse practitioner, or physician?s front office assistant for ongoing care. If your symptoms become worse or you do not improve as expected and you are unable to reach your usual health care provider, you should return to the Emergency Department. We are available 24 hours a day. DEJAH DYKES has been given the following list of patient education materials, prescriptions and follow-up instructions: Follow-up Instructions: With: Address: When: TOM RENEE, Lenora Little, [facility] [address] [place] [address] In 3 days 10/01/2023 In the event that this physician does not participate in your insurance network, please consult with your insurance company to find a nearby participating provider. Patient Education Materials: COVID-19 A MESSAGE TO ALL PATIENTS REGARDING OPIOIDS PRESCRIPTION OPIOIDS: WHAT YOU NEED TO KNOW Prescription opioids can be used to help relieve uljzkpoy-sl-ormfpx pain and are often prescribed following a [...] be struggling with addiction, tell your health wound care nurse and ask for guidance or call [facility] National Helpline at 0-739-660-TIXN. z Source: [place] Department of Health an (more content not included)... Normal [facility] Influenza A&B Agon Influenzae A Ag Negative Normal Negative [facility] Comment on above: Performed By: #### 2 [id number] ####[facility] [address] [place] [address] Influenzae B Ag Negative Normal Negative [facility] Comment on above: Result Comment: Test sensitivity and specificity vary for age group, specimen type, antigen types, and prevalence of disease. Test results must be evaluated in conjunction with other clinical data available to the physician. Individuals who received nasally administered Influenza A vaccine may have positive test results up to 3 days after vaccination. Performed By: #### 2 [id number], [id number] ####[facility] [address] [place] [address] MICRO OTHER TESTSOrdered By: Rajni Llanes on 09-28-2023 Influenzae A Ag Negative (09/28/23 3:07 PM) Normal Negative [facility] Man Sero Influenzae B Ag Negative 1 (09/28/23 3:07 PM) Normal Negative [facility] Man Sero Comment on above: Interpretive Data: [...] NEG Ctl Pass (09/28/23 3:07 PM) Normal [facility] Man Sero Rapid COV Int POS Ctl Pass (09/28/23 3:07 PM) Normal [facility] Sero SARS-CoV+SARS-CoV-2 (COVID-19) Ag IA.rapid Ql (Resp) Detected 2 *ABN* (09/28/23 3:07 PM) Invalid Interpretation Code Not Detected [facility] Man Sero Comment on above: Interpretive Data: T he Fon Veritor System for Rapid Detection of SARS-CoV-2 [...] COV Int NEG Ctl Pass Normal [facility] Comment on above: Performed By: #### 2 [id number], [id number] ####[facility] [address] [place] [address] Rapid COV Int POS Ctl Pass Normal [facility] Comment on above: Performed By: #### 2 [id number], [id number] ####[place] [address] [place] [address] SARS-CoV+SARS-CoV-2 (COVID-19) Ag IA.rapid Ql (Resp) Detected Abnormal Not Detected [facility] Comment on above: Result Comment: The SendHubitor? System for Rapid Detection of SARS-CoV-2 is [...] other viruses or pathogens; and, in the [facility], this test is only authorized for the duration of the declaration that circumstances exist justifying the authorization of emergency use of in vitro diagnostics for detection and/or diagnosis of the virus that causes COVID-19 under Section 564(b)(1) of the Act, 21 U.S.C. ? 360bbb-3(b)(1), unless the authorization is terminated or revoked sooner. Performed By: #### 2 [id number], [id number] ####[facility] [address] [place] [address] Reportability Response - [facility] Healthon 09-28-2023 Reportability Response - Public Health {[id number]-fe-8 9-st-13-74-72-2y-ae-f6}XML Normal [facility] REYNALDO Reflex Testingon 024 REYNALDO with Reflex Positive Critically abnormal Negative [facility] Comment on above: Performed By: #### F ER, HEPATIC, FE and TIBC, PT, LIPID, CBC ####[facility]#### HBCAB, HBSAG, ALPHA PHEN, REYNALDO RFX ADD ON, HBSAB, CERULOP, SMAB, HCV RX PCR ####[facility] , Anti-Centromere B Antibodies <0.2 Normal 0.0-0.9 [facility] Comment on above: Performed By: #### F ER, HEPATIC, FE and TIBC, PT, LIPID, CBC ####[facility] [address] [place] [address] [place]#### HBCAB, HBSAG, ALPHA PHEN, REYNALDO RFX ADD ON, HBSAB, CERULOP, SMAB, HCV RX PCR ####[facility] , Anti-dsDNA(DBL)Ab 1 Normal 0-9 [facility] Comment on above: Result Comment: Nega tive <5 Equivocal 5 - 9 Positive >9 Performed By: #### F ER, HEPATIC, FE and TIBC, PT, LIPID, CBC ####[address]#### HBCAB, HBSAG, ALPHA PHEN, REYNALDO RFX ADD ON, HBSAB, CERULOP, SMAB, HCV RX PCR ####[facility] , Anti-HOSPITAL TECHNICIAN <0.2 Normal 0.0-0.9 [facility] Comment on above: Performed By: #### F ER, HEPATIC, FE and TIBC, PT, LIPID, CBC ####[address]#### HBCAB, HBSAG, ALPHA PHEN, REYNALDO RFX ADD ON, HBSAB, CERULOP, SMAB, HCV RX PCR ####[facility] , Anti-Llanes Antibodies <0.2 Normal 0.0-0.9 [facility] Comment on above: Performed By: #### F ER, HEPATIC, FE and TIBC, PT, LIPID, CBC ####[address]#### HBCAB, HBSAG, ALPHA PHEN, REYNALDO RFX ADD ON, HBSAB, CERULOP, SMAB, HCV RX PCR ####[facility] , Chromatin Antibody <0.2 Normal 0.0-0.9 [facility] Comment on above: Performed By: #### F ER, HEPATIC, FE and TIBC, PT, LIPID, CBC ####[place] [address] [place]#### HBCAB, HBSAG, ALPHA PHEN, REYNALDO RFX ADD ON, HBSAB, CERULOP, SMAB, HCV RX PCR ####[facility] , SHEY-1 Antibody <0.2 Normal 0.0-0.9 [facility] Comment on above: Performed By: #### F ER, HEPATIC, FE and TIBC, PT, LIPID, CBC ####[facility] [id number] [place] [id number] [facility]#### HBCAB, HBSAG, ALPHA PHEN, REYNALDO RFX ADD ON, HBSAB, CERULOP, SMAB, HCV RX PCR ####[facility] , Scleroderma 70 Antibodies >8.0 High 0.0-0.9 [facility] Comment on above: Performed By: #### F ER, HEPATIC, FE and TIBC, PT, LIPID, CBC ####[facility] [address] [place] [address] [facility]#### HBCAB, HBSAG, ALPHA PHEN, REYNALDO RFX ADD ON, HBSAB, CERULOP, SMAB, HCV RX PCR ####[facility] , See Below: Normal . [facility] Comment on above: Result Comment: [...] Sm (anti-Llanes) SLE 15 - 30% --------- HOSPITAL TECHNICIAN Mixed Connective Tissue Disease 95% (U1 nRNP, SLE 30 - 50% anti-ribonucleoprotein) Polymyositis and/or Dermatomyositis 20% --------- Scl-70 (antiDNA Scleroderma (diffuse) 20 - 35% topoisomerase) Crest 13% --------- Shey-1 Polymyositis and/or Dermatomyositis 20 - 40% --------- Centromere B Scleroderma - Crest variant 80% Performed at: [address] [id number] Power Driven Brush Maker: Dhruv Schreiber PhD, Phone: [phone] Performed By: #### F ER, HEPATIC, FE and TIBC, PT, LIPID, CBC ####[facility] [place] [address] [place]#### HBCAB, HBSAG, ALPHA PHEN, REYNALDO RFX ADD ON, HBSAB, CERULOP, SMAB, HCV RX PCR ####[facility] , SS-A/Ro Sjogrens Antibody <0.2 Normal 0.0-0.9 [facility] Comment on above: Performed By: #### F ER, HEPATIC, FE and TIBC, PT, LIPID, CBC ####[facility]#### HBCAB, HBSAG, ALPHA PHEN, REYNALDO RFX ADD ON, HBSAB, CERULOP, SMAB, HCV RX PCR ####[facility] , SS-B/La Sjogrens Antibody 0.5 Normal 0.0-0.9 [facility] Comment on above: Performed By: #### F ER, HEPATIC, FE and TIBC, PT, LIPID, CBC ####[facility]#### HBCAB, HBSAG, ALPHA PHEN, REYNALDO RFX ADD ON, HBSAB, CERULOP, SMAB, HCV RX PCR ####[facility] , Actin smooth muscle IgG Ab [ Units/volume] in SerumOrdered By: Forest Giordano on 09-25-2023 Actin smooth muscle IgG Qn (S) 129 Units 0-19 [facility] Comment on above: Negative 0 - 19 Weak positive 20 - 30 Moderate to strong positive >30 Actin Antibodies are found in 52-85% of patients with autoimmune hepatitis or chronic active hepatitis and in 22% of patients with primary biliary cirrhosis.Performed at: [facility] [address] [id number] Director: Dhruv Schreiber PhD, Phone: [phone] Alanine aminotransferase [En zymatic activity/volume] in Serum or PlasmaOrdered By: Forest Giordano on 09-25-2023 ALT [Catalytic activity/Vol] 51 U/L Normal 7-52 [facility] Comment on above: Performed By: #### F ER, HEPATIC, FE and TIBC, PT, LIPID, CBC ####[facility]#### HBCAB, HBSAG, ALPHA PHEN, REYNALDO RFX ADD ON, HBSAB, CERULOP, SMAB, HCV RX PCR ####[facility] , Albumin [Mass/volume] in Ser um or Plasma by Bromocresol green (BCG) dye binding methoOrdered By: Forest Giordano on 09-25-2023 Albumin BCG dye [Mass/Vol] 4.2 g/dL 3.5-5.7 [facility] Alkaline phosphatase [Enzyma tic activity/volume] in Serum or PlasmaOrdered By: Forest Giordano on 09-25-2023 ALP [Catalytic activity/Vol] 90 U/L Normal 34-104 [facility] Comment on above: Performed By: #### F ER, HEPATIC, FE and TIBC, PT, LIPID, CBC ####[place] [address] [place] [id number] [facility]#### HBCAB, HBSAG, ALPHA PHEN, REYNALDO RFX ADD ON, HBSAB, CERULOP, SMAB, HCV RX PCR ####[facility] , Tzhsl-0-Sltixhloaxg Phenotyp manuel 09-25-2023 Alpha 1 Anti-Trypsin 155 mg/dL Normal 101-187 [facility] Comment on above: Performed By: #### F ER, HEPATIC, FE and TIBC, PT, LIPID, CBC ####[facility] [place] [id number] [place]#### HBCAB, HBSAG, ALPHA PHEN, REYNALDO RFX ADD ON, HBSAB, CERULOP, SMAB, HCV RX PCR ####[facility] , Phenotype (P1) MM Normal . [facility] Comment on above: Result Comment: [...] Ranges used to confirm phenotype. Performed at: [facility] [address] [id number] Power Driven Brush Maker: Dhruv Schreiber PhD, Phone: [phone] Performed at: [facility] [address] [id number] Power Driven Brush Maker: Leyla Britt MD, Phone: [phone] Performed By: #### F ER, HEPATIC, FE and TIBC, PT, LIPID, CBC ####[facility] [id number]#### HBCAB, HBSAG, ALPHA PHEN, REYNALDO RFX ADD ON, HBSAB, CERULOP, SMAB, HCV RX PCR ####[facility] , Aspartate aminotransferase [ Enzymatic activity/volume] in Serum or PlasmaOrdered By: Forest Giordano on 09-25-2023 AST [Catalytic activity/Vol] 44 U/L High 13-39 [facility] Comment on above: Performed By: #### F ER, HEPATIC, FE and TIBC, PT, LIPID, CBC ####[facility] [id number] [place] [address] [place]#### HBCAB, HBSAG, ALPHA PHEN, REYNALDO RFX ADD ON, HBSAB, CERULOP, SMAB, HCV RX PCR ####[facility] , Automated basophil %Ordered By: Forest Giordano on 09-25-2023 Basophils/100 WBC (Bld) 0.8 % Normal . [facility] Comment on above: Performed By: #### F ER, HEPATIC, FE and TIBC, PT, LIPID, CBC ####[place] [address] [address]#### HBCAB, HBSAG, ALPHA PHEN, REYNALDO RFX ADD ON, HBSAB, CERULOP, SMAB, HCV RX PCR ####[facility] , Automated basophil countOrde red By: Forest Giordano on 09-25-2023 Basophils (Bld) [#/Vol] 0.1 10*3/uL Normal 0.0-0.2 [facility] Comment on above: Result Comment: PERF ORMED BY: [facility] [address] [place] [address] PATHOLOGIST ASSEMBLER UNIT LORRAINE DIETZ M.D. Performed By: #### F ER, HEPATIC, FE and TIBC, PT, LIPID, CBC ####[address]#### HBCAB, HBSAG, ALPHA PHEN, REYNALDO RFX ADD ON, HBSAB, CERULOP, SMAB, HCV RX PCR ####[facility] , Automated blood monocyte cou ntOrdered By: Forest Giordano on 09-25-2023 Monocytes (Bld) [#/Vol] 0.5 10*3/uL Normal 0.0-0.8 [facility] Comment on above: Performed By: #### F ER, HEPATIC, FE and TIBC, PT, LIPID, CBC ####[place] [address] [place]#### HBCAB, HBSAG, ALPHA PHEN, REYNALDO RFX ADD ON, HBSAB, CERULOP, SMAB, HCV RX PCR ####[facility] , Automated eosinophil %Ordere d By: Forest Giordano on 09-25-2023 Eosinophils/100 WBC (Bld) 2.1 % Normal . [facility] Comment on above: Performed By: #### F ER, HEPATIC, FE and TIBC, PT, LIPID, CBC ####[place] [address] [place]#### HBCAB, HBSAG, ALPHA PHEN, REYNALDO RFX ADD ON, HBSAB, CERULOP, SMAB, HCV RX PCR ####[facility] , Automated eosinophil countOr dered By: Forest Giordano on 09-25-2023 Eosinophils (Bld) [#/Vol] 0.2 10*3/uL Normal 0.0-0.45 [facility] Comment on above: Performed By: #### F ER, HEPATIC, FE and TIBC, PT, LIPID, CBC ####[place] [address] [address]#### HBCAB, HBSAG, ALPHA PHEN, REYNALDO RFX ADD ON, HBSAB, CERULOP, SMAB, HCV RX PCR ####[facility] , Automated monocyte %Ordered By: Forest Giordano on 09-25-2023 Monocytes/100 WBC (Bld) 6.8 % Normal . [facility] Comment on above: Performed By: #### F ER, HEPATIC, FE and TIBC, PT, LIPID, CBC ####[address]#### HBCAB, HBSAG, ALPHA PHEN, REYNALDO RFX ADD ON, HBSAB, CERULOP, SMAB, HCV RX PCR ####[facility] , Automated neutrophil %Ordere d By: Forest Giordano on 09-25-2023 Neutrophils/100 WBC (Bld) 47.6 % Normal . [facility] Comment on above: Performed By: #### F ER, HEPATIC, FE and TIBC, PT, LIPID, CBC ####[place] [address] [place]#### HBCAB, HBSAG, ALPHA PHEN, REYNALDO RFX ADD ON, HBSAB, CERULOP, SMAB, HCV RX PCR ####[facility] , Bilirubin.direct [Mass/volum e] in Serum or PlasmaOrdered By: Forest Giordano on 09-25-2023 Bilirubin.direct [Mass/Vol] 0.10 mg/dL 0.03-0.18 [facility] Bilirubin.total [Mass/volume ] in Serum or PlasmaOrdered By: Forest Giordano on 09-25-2023 Bilirubin [Mass/Vol] 0.6 mg/dL Normal 0.3-1.0 [facility] Comment on above: Performed By: #### F ER, HEPATIC, FE and TIBC, PT, LIPID, CBC ####[place] [address] [address]#### HBCAB, HBSAG, ALPHA PHEN, REYNALDO RFX ADD ON, HBSAB, CERULOP, SMAB, HCV RX PCR ####[facility] , Ceruloplasminon 09-25-2023 Ceruloplasmin 22.9 mg/dL Normal 19.0-39.0 [facility] Comment on above: Result Comment: Perf ormed at: - [facility] [address] [id number] Power Driven Brush Maker: Dhruv Schreiber PhD, Phone: [phone] PERFORMED BY: [facility] [address] [place] [address] PATHOLOGIST ASSEMBLER UNIT LORRAINE DIETZ M.D. Performed By: #### F ER, HEPATIC, FE and TIBC, PT, LIPID, CBC ####[address]#### HBCAB, HBSAG, ALPHA PHEN, REYNALDO RFX ADD ON, HBSAB, CERULOP, SMAB, HCV RX PCR ####[facility] , Cholesterol [Mass/volume] in Serum or PlasmaOrdered By: Forest Giordano on 09-25-2023 Cholesterol [Mass/Vol] 199 mg/dL Normal 140-200 [facility] Comment on above: Chol less than 200 m g/dl low riskChol 201-239 mg/dl borderline riskChol 240 mg/dl and greater high risk Result Comment: Chol less than 200 mg/dl low risk Chol 201-239 mg/dl borderline risk Chol 240 mg/dl and greater high risk Performed By: #### F ER, HEPATIC, FE and TIBC, PT, LIPID, CBC ####[place] [address] [address]#### HBCAB, HBSAG, ALPHA PHEN, REYNALDO RFX ADD ON, HBSAB, CERULOP, SMAB, HCV RX PCR ####[facility] , Cholesterol in LDL Calc [Mas s/Vol]Ordered By: Forest Giordano on 09-25-2023 Cholesterol in LDL [Mass/Vol] 122 mg/dL 0-100 [facility] Comment on above: LDL ATP III CLASSIFI CATIONLDL less than 100 mg/dL OptimalLDL 100-129 mg/dL Near or above optimalLDL 130-159 mg/dL Borderline highLDL 160-189 mg/dL HighLDL greater than 189 mg/dL Very high Cholesterol in VLDL Calc [Ma ss/Vol]Ordered By: Forest Giordano on 09-25-2023 Cholesterol in VLDL [Mass/Vol] 17 mg/dL [facility] Complete Blood Count Auto Di ffon 09-25-2023 Mean Corpuscular HGB Conc 34.2 g/dL Normal 32.0-35.0 [facility] Comment on above: Performed By: #### F ER, HEPATIC, FE and TIBC, PT, LIPID, CBC ####[facility] [id number]#### HBCAB, HBSAG, ALPHA PHEN, REYNALDO RFX ADD ON, HBSAB, CERULOP, SMAB, HCV RX PCR ####[facility] , NRBC% 0.1 /100{WBC} Normal 0-0.5 [facility] Comment on above: Performed By: #### F ER, HEPATIC, FE and TIBC, PT, LIPID, CBC ####[facility] [id number] [place] [address] [place]#### HBCAB, HBSAG, ALPHA PHEN, REYNALDO RFX ADD ON, HBSAB, CERULOP, SMAB, HCV RX PCR ####[facility] , DNA double strand Ab [Units/ volume] in SerumOrdered By: Forest Giordano on 09-25-2023 DNA double strand Ab Qn (S) 1 [IU]/mL 0-9 [facility] Comment on above: Negative <5 Equivoca l 5 - 9 Positive >9 Erythrocyte distribution wid th [Ratio] by Automated countOrdered By: Forest Giordano on 09-25-2023 Erythrocyte distribution width (RBC) [Ratio] 13.8 % Normal 11.9-15.3 [facility] Comment on above: Performed By: #### F ER, HEPATIC, FE and TIBC, PT, LIPID, CBC ####[address]#### HBCAB, HBSAG, ALPHA PHEN, REYNALDO RFX ADD ON, HBSAB, CERULOP, SMAB, HCV RX PCR ####[facility] , Erythrocytes [#/volume] in B lood by Automated countOrdered By: Forest Giordano on 09-25-2023 RBC (Bld) [#/Vol] 4.81 10*6/uL Normal 3.60-5.00 [facility] Comment on above: Performed By: #### F ER, HEPATIC, FE and TIBC, PT, LIPID, CBC ####[address]#### HBCAB, HBSAG, ALPHA PHEN, REYNALDO RFX ADD ON, HBSAB, CERULOP, SMAB, HCV RX PCR ####[facility] , Ferritin [Mass/volume] in Se rum or PlasmaOrdered By: Forest Giordano on 09-25-2023 Ferritin [Mass/Vol] 153.5 ng/mL Normal 11.0-306.8 [facility] Comment on above: Performed By: #### F ER, HEPATIC, FE and TIBC, PT, LIPID, CBC ####[address]#### HBCAB, HBSAG, ALPHA PHEN, REYNALDO RFX ADD ON, HBSAB, CERULOP, SMAB, HCV RX PCR ####[facility] , Hematocrit [Volume Fraction] of Blood by Automated countOrdered By: Forest Giordano on 09-25-2023 Hematocrit (Bld) [Volume fraction] 43.4 % Normal 34.0-46.4 [facility] Comment on above: Performed By: #### F ER, HEPATIC, FE and TIBC, PT, LIPID, CBC ####[place] [address] [address]#### HBCAB, HBSAG, ALPHA PHEN, REYNALDO RFX ADD ON, HBSAB, CERULOP, SMAB, HCV RX PCR ####[facility] , Hemoglobin [Mass/volume] in BloodOrdered By: Forest Giordano on 09-25-2023 Hemoglobin (Bld) [Mass/Vol] 14.9 g/dL Normal 11.8-15.4 [facility] Comment on above: Performed By: #### F ER, HEPATIC, FE and TIBC, PT, LIPID, CBC ####[address]#### HBCAB, HBSAG, ALPHA PHEN, REYNALDO RFX ADD ON, HBSAB, CERULOP, SMAB, HCV RX PCR ####[facility] , Hep C Ab wRfx to Qnt PCRon 0 09-25-2023 Hepatitis C Virus Antibody Non-Reactive Normal Non Reactive [facility] Comment on above: Performed By: #### F ER, HEPATIC, FE and TIBC, PT, LIPID, CBC ####[place] [address] [address]#### HBCAB, HBSAG, ALPHA PHEN, REYNALDO RFX ADD ON, HBSAB, CERULOP, SMAB, HCV RX PCR ####[facility] , Interpretation Hepatitis C Normal . [facility] Comment on above: Result Comment: Not infected with HCV unless early or acute infection is suspected (which may be delayed in an immunocompromised individual), or other evidence exists to indicate HCV infection. Performed By: #### F ER, HEPATIC, FE and TIBC, PT, LIPID, CBC ####[address]#### HBCAB, HBSAG, ALPHA PHEN, REYNALDO RFX ADD ON, HBSAB, CERULOP, SMAB, HCV RX PCR ####[facility] , Hepatic Panelon 09-25-2023 Albumin [Mass/Vol] 4.2 g/dL Normal 3.5-5.7 [facility] Comment on above: Performed By: #### F ER, HEPATIC, FE and TIBC, PT, LIPID, CBC ####[address]#### HBCAB, HBSAG, ALPHA PHEN, REYNALDO RFX ADD ON, HBSAB, CERULOP, SMAB, HCV RX PCR ####[facility] , Bilirubin,Indirect 0.5 mg/dL Normal [facility] Comment on above: Performed By: #### F ER, HEPATIC, FE and TIBC, PT, LIPID, CBC ####[address]#### HBCAB, HBSAG, ALPHA PHEN, REYNALDO RFX ADD ON, HBSAB, CERULOP, SMAB, HCV RX PCR ####[facility] , Bilirubin.indirect [Mass/Vol] 0.10 mg/dL Normal 0.03-0.18 [facility] Comment on above: Performed By: #### F ER, HEPATIC, FE and TIBC, PT, LIPID, CBC ####[address]#### HBCAB, HBSAG, ALPHA PHEN, REYNALDO RFX ADD ON, HBSAB, CERULOP, SMAB, HCV RX PCR ####[facility] , Hepatitis B Core Antibodyon 09-25-2023 Hepatitis B Core Antibody Negative Normal Negative [facility] Comment on above: Result Comment: Perf ormed at: CB - [facility] [address] [id number] [employer] Driven Brush Maker: Dhruv Schreiber PhD, Phone: [phone] Performed By: #### F ER, HEPATIC, FE and TIBC, PT, LIPID, CBC ####[address]#### HBCAB, HBSAG, ALPHA PHEN, REYNALDO RFX ADD ON, HBSAB, CERULOP, SMAB, HCV RX PCR ####[facility] , Hepatitis B Surface Antibody on 09-25-2023 Hepatitis B Surface Antibody Non-Reactive Normal . [facility] Comment on above: Result Comment: Non Reactive: Inconsistent with immunity, less than 10 mIU/mL Reactive: Consistent with immunity, greater than 9.9 mIU/mL Performed By: #### F ER, HEPATIC, FE and TIBC, PT, LIPID, CBC ####[facility]#### HBCAB, HBSAG, ALPHA PHEN, REYNALDO RFX ADD ON, HBSAB, CERULOP, SMAB, HCV RX PCR ####[facility] , Hepatitis B Surface Antigeno n 09-25-2023 HBsAg Screen Negative Normal Negative [facility] Comment on above: Result Comment: PERF ORMED BY: [facility] [address] [place] [address] PATHOLOGIST ASSEMBLER UNIT LORRAINE DIETZ M.D. Performed By: #### F ER, HEPATIC, FE and TIBC, PT, LIPID, CBC ####[facility] [place] [address] [facility]#### HBCAB, HBSAG, ALPHA PHEN, REYNALDO RFX ADD ON, HBSAB, CERULOP, SMAB, HCV RX PCR ####[facility] , Hepatitis B virus surface Ab [Presence] in SerumOrdered By: Forest Giordano on 09-25-2023 HBV surface Ab Ql (S) Non-Reactive . [facility] Comment on above: Non Reactive: Incons istent with immunity, less than 10 mIU/mL Reactive: Consistent with immunity, greater than 9.9 mIU/mL Hepatitis B virus surface Ag [Presence] in Serum or Plasma by ImmunoassayOrdered By: Forest Giordano on 09-25-2023 HBV surface Ag IA Ql Negative Negative [facility] Hepatitis C virus IgG Ab [Pr esence] in Serum or Plasma by ImmunoassayOrdered By: Forest Giordano on 09-25-2023 HCV IgG IA Ql Non-Reactive Non Reactive [facility] INR in Platelet poor plasma by Coagulation assayOrdered By: Forest Giordano on 09-25-2023 INR Coag (PPP) [Relative time] 1.0 {INR} Normal [facility] Comment on above: INR Therapeutic Rang [...] heart valves: 3 - 4.5 PERFORMED BY: [facility] [address] [place] [address] PATHOLOGIST ASSEMBLER UNIT LORRAINE DIETZ M.D. Performed By: #### F ER, HEPATIC, FE and TIBC, PT, LIPID, CBC ####[facility] [id number]#### HBCAB, HBSAG, ALPHA PHEN, REYNALDO RFX ADD ON, HBSAB, CERULOP, SMAB, HCV RX PCR ####[facility] , Iron [Mass/volume] in Serum or PlasmaOrdered By: Forest Giordano on 09-25-2023 Iron [Mass/Vol] 78 ug/dL Normal 50-212 [facility] Comment on above: Performed By: #### F ER, HEPATIC, FE and TIBC, PT, LIPID, CBC ####[facility] [id number] [place] [address] [place]#### HBCAB, HBSAG, ALPHA PHEN, REYNALDO RFX ADD ON, HBSAB, CERULOP, SMAB, HCV RX PCR ####[facility] , Iron and TIBC Profileon 09-06 % Iron Saturation 23.6 % Normal 20-50 [facility] Comment on above: Performed By: #### F ER, HEPATIC, FE and TIBC, PT, LIPID, CBC ####[facility] [id number]#### HBCAB, HBSAG, ALPHA PHEN, REYNALDO RFX ADD ON, HBSAB, CERULOP, SMAB, HCV RX PCR ####[facility] , Total Iron Binding Capacity 330 ug/dL Normal 255-450 [facility] Comment on above: Performed By: #### F ER, HEPATIC, FE and TIBC, PT, LIPID, CBC ####[facility] [place] [id number] [facility]#### HBCAB, HBSAG, ALPHA PHEN, REYNALDO RFX ADD ON, HBSAB, CERULOP, SMAB, HCV RX PCR ####[facility] , Iron binding capacity [Mass/ volume] in Serum or PlasmaOrdered By: Forest Giordano on 09-25-2023 Iron binding capacity [Mass/Vol] 330 ug/dL 255-450 [facility] Iron saturation [Mass Fracti on] in Serum or PlasmaOrdered By: Forest Giordano on 09-25-2023 Iron saturation [Mass fraction] 23.6 % 20-50 [facility] Leukocytes [#/volume] correc toya for nucleated erythrocytes in Blood by Automated counOrdered By: Forest Giordano on 09-25-2023 WBC corrected for nucl RBC Auto (Bld) [#/Vol] 7.2 10*3/uL 3.8-11.6 [facility] Leukocytes [#/volume] in Blo od by Automated countOrdered By: Forest Giordano on 09-25-2023 WBC (Bld) [#/Vol] 7.2 10*3/uL Normal 3.8-11.6 [facility] Comment on above: Performed By: #### F ER, HEPATIC, FE and TIBC, PT, LIPID, CBC ####[facility] [id number] [place] [address] [place]#### HBCAB, HBSAG, ALPHA PHEN, REYNALDO RFX ADD ON, HBSAB, CERULOP, SMAB, HCV RX PCR ####[facility] , Lipid Panelon 09-25-2023 LDL Cholesterol,Calculated 122 mg/dL High 0-100 [facility] Comment on above: Result Comment: LDL ATP III CLASSIFICATION LDL less than 100 mg/dL Optimal LDL 100-129 mg/dL Near or above optimal LDL 130-159 mg/dL Borderline high LDL 160-189 mg/dL High LDL greater than 189 mg/dL Very high Performed By: #### F ER, HEPATIC, FE and TIBC, PT, LIPID, CBC ####[place] [address] [address]#### HBCAB, HBSAG, ALPHA PHEN, REYNALDO RFX ADD ON, HBSAB, CERULOP, SMAB, HCV RX PCR ####[facility] , Triglyceride w/Reflex 89 mg/dL Normal 0-149 [facility] Comment on above: Result Comment: TRIG ATP III CLASSIFICATION TRIG less than 150 mg/dL Normal TRIG 150-199 mg/dL Borderline high TRIG 200-500 mg/dL High TRIG greater than 500 mg/dL Very high Standard traceable to the Center for Disease Conrtrol and Prevention (CDC) test method. Performed By: #### F ER, HEPATIC, FE and TIBC, PT, LIPID, CBC ####[place] [address] [address]#### HBCAB, HBSAG, ALPHA PHEN, REYNALDO RFX ADD ON, HBSAB, CERULOP, SMAB, HCV RX PCR ####[facility] , VLDL CHOLESTEROL 17 mg/dL Normal [facility] Comment on above: Performed By: #### F ER, HEPATIC, FE and TIBC, PT, LIPID, CBC ####[address]#### HBCAB, HBSAG, ALPHA PHEN, REYNALDO RFX ADD ON, HBSAB, CERULOP, SMAB, HCV RX PCR ####[facility] , Lymphocytes [#/volume] in Bl ood by Automated countOrdered By: Forest Giordano on 09-25-2023 Lymphocytes (Bld) [#/Vol] 3.1 10*3/uL Normal 1.00-4.8 [facility] Comment on above: Performed By: #### F ER, HEPATIC, FE and TIBC, PT, LIPID, CBC ####[facility] [id number] [address]#### HBCAB, HBSAG, ALPHA PHEN, REYNALDO RFX ADD ON, HBSAB, CERULOP, SMAB, HCV RX PCR ####[facility] , Lymphocytes/100 leukocytes i n Blood by Automated countOrdered By: Forest Giordano on 09-25-2023 Lymphocytes/100 WBC (Bld) 42.7 % Normal . [facility] Comment on above: Performed By: #### F ER, HEPATIC, FE and TIBC, PT, LIPID, CBC ####[place] [address] [address]#### HBCAB, HBSAG, ALPHA PHEN, REYNALDO RFX ADD ON, HBSAB, CERULOP, SMAB, HCV RX PCR ####[facility] , MCH [Entitic mass] by Automa toya countOrdered By: Forest Giordano on 09-25-2023 MCH (RBC) [Entitic mass] 30.9 pg Normal 24.7-34.3 [facility] Comment on above: Performed By: #### F ER, HEPATIC, FE and TIBC, PT, LIPID, CBC ####[place] [address] [place] [address] [place]#### HBCAB, HBSAG, ALPHA PHEN, REYNALDO RFX ADD ON, HBSAB, CERULOP, SMAB, HCV RX PCR ####[facility] , MCHC Auto (RBC) [Mass/Vol]Or dered By: Forest Giordano on 09-25-2023 MCHC (RBC) [Mass/Vol] 34.2 g/dL 32.0-35.0 [facility] MCV [Entitic volume] by Auto mated countOrdered By: Forest Giordano on 09-25-2023 MCV (RBC) [Entitic vol] 90.3 fL Normal 80-100 [facility] Comment on above: Performed By: #### F ER, HEPATIC, FE and TIBC, PT, LIPID, CBC ####[facility] [id number] [address]#### HBCAB, HBSAG, ALPHA PHEN, REYNALDO RFX ADD ON, HBSAB, CERULOP, SMAB, HCV RX PCR ####[facility] , Neutrophils [#/volume] in Bl ood by Automated countOrdered By: Forest Giordano on 09-25-2023 Neutrophils (Bld) [#/Vol] 3.4 10*3/uL Normal 1.8-7.7 [facility] Comment on above: Performed By: #### F ER, HEPATIC, FE and TIBC, PT, LIPID, CBC ####[facility] [id number] [address]#### HBCAB, HBSAG, ALPHA PHEN, REYNALDO RFX ADD ON, HBSAB, CERULOP, SMAB, HCV RX PCR ####[facility] , No Panel InformationOrdered By: Forest Giordano on 09-25-2023 Anti-Nuclear Antibody Interpret See comment . [facility] Comment on above: Autoantibody Disease Association --------- Condition Frequency ---------Antinuclear Antibody, SLE, mixed connectiveDirect (REYNALDO-D) tissue diseases ---------dsDNA SLE 40 - 60% ---------Chromatin Drug induced SLE 90% SLE 48 - 97% ---------SSA (Ro) SLE 25 - 35% Sjogren's Syndrome 40 - 70% Lupus 100% ---------SSB (La) SLE 10% Sjogren's Syndrome 30% ---------Sm (anti-Llanes) SLE 15 - 30% ---------HOSPITAL TECHNICIAN Mixed Connective Tissue Disease 95%(U1 nRNP, SLE 30 - 50%anti-ribonucleoprotein) Polymyositis and/or Dermatomyositis 20% ---------Scl-70 (antiDNA Scleroderma (diffuse) 20 - 35%topoisomerase) Crest 13% ---------Shey-1 Polymyositis and/or Dermatomyositis 20 - 40% ---------Centromere B Scleroderma - Crest variant 80%Performed at: CB - [facility] [address] [id number] Director: Dhruv Schreiber PhD, Phone: [phone] Hepatitis B Core Total Antibody Negative Negative [facility] Comment on above: Performed at: CB - [facility] [address] [id number] Director: Dhruv Schreiber PhD, Phone: [phone] Hepatitis C Interpretation See comment . [facility] Comment on above: Not infected with HC V unless early or acute infection issuspected (which may be delayed in an immunocompromisedindividual), or other evidence exists to indicate HCVinfection. HOSPITAL TECHNICIAN Antibody <0.2 AI 0.0-0.9 [facility] Nucleated erythrocytes [Pres ence] in Blood by Automated countOrdered By: Forest Giordano on 09-25-2023 Nucleated RBC Auto Ql (Bld) 0.1 /100{WBC} 0-0.5 [facility] Platelet mean volume [Entiti c volume] in Blood by Automated countOrdered By: Forest Giordano on 09-25-2023 Platelet mean volume (Bld) [Entitic vol] 8.9 fL Normal 6.3-10.7 [facility] Comment on above: Performed By: #### F ER, HEPATIC, FE and TIBC, PT, LIPID, CBC ####[facility] [id number]#### HBCAB, HBSAG, ALPHA PHEN, REYNALDO RFX ADD ON, HBSAB, CERULOP, SMAB, HCV RX PCR ####[facility] , Platelets [#/volume] in Bloo d by Automated countOrdered By: Forest Giordano on 09-25-2023 Platelets (Bld) [#/Vol] 179 10*3/uL Normal 150-450 [facility] Comment on above: Performed By: #### F ER, HEPATIC, FE and TIBC, PT, LIPID, CBC ####[facility] [id number] [place] [id number] [facility]#### HBCAB, HBSAG, ALPHA PHEN, REYNALDO RFX ADD ON, HBSAB, CERULOP, SMAB, HCV RX PCR ####[facility] , Protein [Mass/volume] in Ser um or PlasmaOrdered By: Forest Giordano on 09-25-2023 Protein [Mass/Vol] 6.8 g/dL Normal 6.4-8.9 [facility] Comment on above: Performed By: #### F ER, HEPATIC, FE and TIBC, PT, LIPID, CBC ####[facility] [place] [id number] [facility]#### HBCAB, HBSAG, ALPHA PHEN, REYNALDO RFX ADD ON, HBSAB, CERULOP, SMAB, HCV RX PCR ####[facility] , Prothrombin time (PT)Ordered By: Forest Giordano on 09-25-2023 PT Coag (PPP) [Time] 11.2 s Normal 9.0-12.9 [facility] Comment on above: A hematocrit value g reater than 55% may lead to inaccurate results in coagulation testing. Patients having hematocrit values >55% require a special collection tube for coagulation studies. Please contact the laboratory at [phone] for redraw instructions. Result Comment: A he matocrit value greater than 55% may lead to inaccurate results in coagulation testing. Patients having hematocrit values >55% require a special collection tube for coagulation studies. Please contact the laboratory at [phone] for redraw instructions. Performed By: #### F ER, HEPATIC, FE and TIBC, PT, LIPID, CBC ####[facility] [place] [id number] [place]#### HBCAB, HBSAG, ALPHA PHEN, REYNALDO RFX ADD ON, HBSAB, CERULOP, SMAB, HCV RX PCR ####[facility] , Scl-70 antibody assayOrdered By: Forest Giordano on 09-25-2023 SCL-70 extractable nuclear Ab IA Qn (S) >8.0 AI 0.0-0.9 [facility] Serum Shey-1 extractable nucle ar antibody assay (units/volume)Ordered By: Forest Giordano on 09-25-2023 Shey-1 extractable nuclear Ab Qn (S) <0.2 AI 0.0-0.9 [facility] Serum Sjogrens syndrome-A ex tractable nuclear antibody assay (units/volume)Ordered By: Forest Giordano on 09-25-2023 Sjogrens syndrome-A extractable nuclear Ab Qn (S) <0.2 AI 0.0-0.9 [facility] Serum Sjogrens syndrome-B ex tractable nuclear antibody assay (units/volume)Ordered By: Forest Giordano on 09-25-2023 Sjogrens syndrome-B extractable nuclear Ab Qn (S) 0.5 AI 0.0-0.9 [facility] Serum Llanes extractable nucl ear antigen (SHALINI) antibody assay (units/volume)Ordered By: Forest Giordano on 09-25-2023 Llanes extractable nuclear Ab Qn (S) <0.2 AI 0.0-0.9 [facility] Serum [id number] me asurementOrdered By: Forest Giordano on 09-25-2023 Alpha 1 antitrypsin [Mass/Vol] 155 mg/dL 101-187 [facility] Serum centromere protein B a ntibody assay (units/volume)Ordered By: Forest Giordano on 09-25-2023 Centromere protein B Ab Qn (S) <0.2 AI 0.0-0.9 [facility] Serum globulin measurement b y calculation (mass/volume)Ordered By: Forest Giordano on 09-25-2023 Globulin (S) [Mass/Vol] 2.6 g/dL Normal [facility] Comment on above: Performed By: #### F ER, HEPATIC, FE and TIBC, PT, LIPID, CBC ####[facility] [id number] [place] [address] [facility]#### HBCAB, HBSAG, ALPHA PHEN, REYNALDO RFX ADD ON, HBSAB, CERULOP, SMAB, HCV RX PCR ####[facility] , Serum or plasma albumin/glob ulin mass ratioOrdered By: Forest Giordano on 09-25-2023 Albumin/Globulin [Mass ratio] 1.6 {ratio} Normal [facility] Comment on above: Performed By: #### F ER, HEPATIC, FE and TIBC, PT, LIPID, CBC ####[facility] [id number]#### HBCAB, HBSAG, ALPHA PHEN, REYNALDO RFX ADD ON, HBSAB, CERULOP, SMAB, HCV RX PCR ####[facility] , Serum or plasma alpha 1 anti trypsin phenotyping identification by immunofixationOrdered By: Forest Giordano on 09-25-2023 Alpha 1 antitrypsin phenotyping Immunofixation Nom Mm . [facility] Comment on above: Phenotype Population A-1-AT [...] used to confirm phenotype.Performed at: - [facility] [address] [id number] Director: Dhruv Schreiber PhD, Phone: [phone] at: [facility] [address] [id number] Director: Leyla Britt MD, Phone: [phone] Serum or plasma ceruloplasmi n measurement (mass/volume)Ordered By: Forest Giordano on 09-25-2023 Ceruloplasmin [Mass/Vol] 22.9 mg/dL 19.0-39.0 [facility] Comment on above: Performed at: - [address] [id number] Director: Dhruv Schreiber PhD, Phone: [phone] Serum or plasma chromatin an tibody assay (units/volume)Ordered By: Forest Giordano on 09-25-2023 Chromatin Ab Qn <0.2 AI 0.0-0.9 [facility] Serum or plasma free cefurox latesha measurement (mass/volume)Ordered By: Forest Giordano on 09-25-2023 Cefuroxime free [Mass/Vol] Positive Negative [facility] Serum or plasma high density lipoprotein (HDL) cholesterol measurementOrdered By: Forest Giordano on 09-25-2023 Cholesterol in HDL [Mass/Vol] 59 mg/dL Normal 23-92 [facility] Comment on above: HDL CHOL ATP-III CLA SSIFICATION Cardiovascular RiskHDL > or equal to 60 mg/dL LOWHDL < 40 mg/dL HIGH Result Comment: HDL CHOL ATP-III CLASSIFICATION Cardiovascular Risk HDL > or equal to 60 mg/dL LOW HDL < 40 mg/dL HIGH Performed By: #### F ER, HEPATIC, FE and TIBC, PT, LIPID, CBC ####[facility] [id number]#### HBCAB, HBSAG, ALPHA PHEN, REYNALDO RFX ADD ON, HBSAB, CERULOP, SMAB, HCV RX PCR ####[facility] , Serum or plasma non-glucuron idated bilirubin measurement (mass/volume)Ordered By: Forest Giordano on 09-25-2023 Bilirubin.indirect [Mass/Vol] 0.5 mg/dL [facility] Serum or plasma total choles terol/high density lipoprotein (HDL) cholesterol mass ratOrdered By: Forest Giordano on 09-25-2023 Cholesterol.total/Nanci sterol in HDL [Mass ratio] 3.4 {ratio} Normal <5.0 [facility] Comment on above: Result Comment: PERF ORMED BY: [facility] [address] [place] [address] PATHOLOGIST ASSEMBLER UN[employer] DIETZ M.D. Performed By: #### F ER, HEPATIC, FE and TIBC, PT, LIPID, CBC ####[facility] [place] [id number] [facility]#### HBCAB, HBSAG, ALPHA PHEN, REYNALDO RFX ADD ON, HBSAB, CERULOP, SMAB, HCV RX PCR ####[facility] , Smooth Muscle Antibodyon Smooth Muscle Antibody 129 High 0-19 [facility] Comment on above: Result Comment: Nega tive 0 - 19 Weak positive 20 - 30 Moderate to strong positive >30 Actin Antibodies are found in 52-85% of patients with autoimmune hepatitis or chronic active hepatitis and in 22% of patients with primary biliary cirrhosis. Performed at: [facility] [address] [id number] Power Driv[employer] Brush Maker: Dhruv Schreiber PhD, Phone: [phone] PERFORMED BY: [facility] [address] [place] [address] PATHOLOGIST ASSEMBLER UNIT [employer]RA[employer] DIETZ M.D. Performed By: #### F ER, HEPATIC, FE and TIBC, PT, LIPID, CBC ####[place] [address] [place] [id number] [facility]#### HBCAB, HBSAG, ALPHA PHEN, REYNALDO RFX ADD ON, HBSAB, CERULOP, SMAB, HCV RX PCR ####[facility] , Transferrin [Mass/volume] in Serum or PlasmaOrdered By: Forest Giordano on 09-25-2023 Transferrin [Mass/Vol] 236 mg/dL Normal 203-362 [facility] Comment on above: Performed By: #### F ER, HEPATIC, FE and TIBC, PT, LIPID, CBC ####[place] [id number] [facility]#### HBCAB, HBSAG, ALPHA PHEN, REYNALDO RFX ADD ON, HBSAB, CERULOP, SMAB, HCV RX PCR ####[facility] , Triglyceride [Mass/volume] i n Serum or PlasmaOrdered By: Forest Giordano on 09-25-2023 Triglyceride [Mass/Vol] 89 mg/dL 0-149 [facility] Comment on above: TRIG ATP III CLASSIF ICATIONTRIG less than 150 mg/dL NormalTRIG 150-199 mg/dL Borderline highTRIG 200-500 mg/dL High TRIG greater than 500 mg/dL Very highStandard traceable to the Center for Disease Conrtrol and Prevention (CDC) test method. US liveron 09-25-2023 [facility] [place] [address] Ultrasound Report Signed Patient: Dejah Dykes MR#: [id number] : 1970 Acct:[id number] Age/Sex: 53 / F ADM Date: 09/25/23 Loc: Room: Type: [facility] Attending Dr: Forest Giordano APRN Ordering [...] Alka Earl M.D.09/25/2023 3:07 PM Dictation Location: [place] [address] Tech: Lucy Cm Transcribed By: YADIRA 09/25/23 1507 Dictated By: Alka Earl MD 09/25/23 1505 Signed By: 09/25/23 1507 Normal [facility] CNOVon 09-24-2023 CNOV Office Visit (STED) -- DEJAH DYKES ([id number]) 1970 F Date Time Provider Department 09/24/23 1:00 PM ALFREDO CRUZ During your visit today, we recorded the following information about you: Pulse Blood pressure Weight Height 84/minute 145/84 115 kg 1.626 m Alfredo Cruz MD 09/24/2023 2:51 PM Signed Endocrinology and Metabolism [facility] - Initial Visit Patient Name: Dejah Dykes Referring Provider: Elly Galicia [address] [place] [address] My final recommendations will be communicated back [...] managed Social: 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 Normal [facility] Comprehensive metabolic 2000 panelon 09-24-2023 Albumin [Mass/Vol] 4.1 g/dL Normal 3.9-4.9 [facility] Comment on above: Order Comment: Pauline giordano Type: BLOOD SPECIMEN Ordering Facility: [facility] Address: [address] [place] [address] Performed By: #### 3 024-7, 3016-3, 90417-2 #### [facility] CLIA [id number] [address] [place] [address] [place] ALP [Catalytic activity/Vol] 83 U/L Normal 34-123 [facility] Comment on above: Order Comment: Pauline giordano Type: BLOOD SPECIMEN Ordering Facility: [facility] Address: [address] [place] [address] Performed By: #### 3 024-7, 3016-3, 75729-7 #### [facility] CLIA [id number] [address] [place] [address] [place] ALT [Catalytic activity/Vol] 63 U/L High 7-38 [facility] Comment on above: Order Comment: Pauline giordano Type: BLOOD SPECIMEN Ordering Facility: [facility] Address: [address] [place] [address] Performed By: #### 3 024-7, 3016-3, 08673-7 #### [facility] CLIA [id number] [address] [place] [address] [place] Anion gap [Moles/Vol] 13 mmol/L Normal 9-18 [facility] Comment on above: Order Comment: Speci men Type: BLOOD SPECIMEN Ordering Facility: [facility] Address: [address] [place] [address] Performed By: #### 3 024-7, 3016-3, 29040-5 #### [facility] CLIA [id number] [address] [place] [address] [place] AST [Catalytic activity/Vol] 68 U/L High 13-35 [facility] Comment on above: Order Comment: Speci men Type: BLOOD SPECIMEN Ordering Facility: [facility] Address: [address] [place] [address] Performed By: #### 3 024-7, 3015-3, 21031-0 #### [facility] CLIA [id number] [address] [place] [address] [place] Bilirubin [Mass/Vol] 0.6 mg/dL Normal 0.2-1.3 [facility] Comment on above: Order Comment: Speci men Type: BLOOD SPECIMEN Ordering Facility: [facility] Address: [address] [place] [address] Performed By: #### 3 024-7, 301-3, 89824-4 #### [facility] CLIA [id number] [address] [place] [address] [place] Calcium [Mass/Vol] 9.7 mg/dL Normal 8.5-10.2 [facility] Comment on above: Order Comment: Speci men Type: BLOOD SPECIMEN Ordering Facility: [facility] Address: [address] [place] [address] Performed By: #### 3 024-7, 3016-3, 91556-2 #### [facility] CLIA [id number] [address] [place] [address] [place] Chloride [Moles/Vol] 104 mmol/L Normal 97-105 [facility] Comment on above: Order Comment: Speci men Type: BLOOD SPECIMEN Ordering Facility: [facility] Address: [address] [place] [address] Performed By: #### 3 024-7, 3016-3, 55528-9 #### [facility] CLIA [id number] [address] [place] [address] [place] CO2 [Moles/Vol] 26 mmol/L Normal 22-30 [facility] Comment on above: Order Comment: Speci men Type: BLOOD SPECIMEN Ordering Facility: [facility] Address: [address] [place] [address] Performed By: #### 3 024-7, 3016-3, 61328-2 #### [facility] CLIA [id number] [address] [place] [address] [place] Creatinine [Mass/Vol] 0.73 mg/dL Normal 0.58-0.96 [facility] Comment on above: Order Comment: Speci men Type: BLOOD SPECIMEN Ordering Facility: [facility] Address: [address] [place] [address] Performed By: #### 3 024-7, 3016-3, 70410-0 #### [facility] CLIA [id number] [address] [place] [address] OF [place] Creatinine and Glomerular filtration rate.predicted panel (S/P/Bld) 98 mL/min/1.73m??? Normal >=60 [facility] Comment on above: Order Comment: Speci men Type: BLOOD SPECIMEN Ordering Facility: [facility] Address: [address] [place] [address] Result Comment: Brenda mated Glomerular Filtration Rate [...] actual GFR. Performed By: #### 3 024-7, 3015-3, 55322-1 #### [facility] CLIA [id number] [address] [address] [place] Glucose [Mass/Vol] 82 mg/dL Normal 74-99 [facility] Comment on above: Order Comment: Pauline giordano Type: BLOOD SPECIMEN Ordering Facility: [facility] Address: [address] Result Comment: The [place] Diabetes Association (ADA) provides guidance for cutoff [...] Standards of Medical Care in Diabetes 2016, [place] Diabetes Association. Diabetes Care. 2016.39(Suppl 1). Performed By: #### 3 024-7, 3015-3, 78864-2 #### [facility] CLIA [id number] [address] [place] [id number] [place] Potassium [Moles/Vol] 3.4 mmol/L Low 3.7-5.1 [facility] Comment on above: Order Comment: Pauline giordano Type: BLOOD SPECIMEN Ordering Facility: [facility] Address: [address] [place] [address] Performed By: #### 3 024-7, 3015-3, 22902-0 #### [facility] CLIA [id number] [address] [address] [place] Protein [Mass/Vol] 7.2 g/dL Normal 6.3-8.0 [facility] Comment on above: Order Comment: Speci men Type: BLOOD SPECIMEN Ordering Facility: [facility] Address: [address] [place] [address] Performed By: #### 3 024-7, 3016-3, 64020-0 #### [facility] CLIA [id number] [address] [place] [address] [place] Sodium [Moles/Vol] 143 mmol/L Normal 136-144 [facility] Comment on above: Order Comment: Speci men Type: BLOOD SPECIMEN Ordering Facility: [facility] Address: [address] [place] [address] Performed By: #### 3 024-7, 3016-3, 75726-6 #### [facility] CLIA [id number] [address] [place] [address] [place] Urea nitrogen [Mass/Vol] 8 mg/dL Normal 7-21 [facility] Comment on above: Order Comment: Speci men Type: BLOOD SPECIMEN Ordering Facility: [facility] Address: [address] [place] [address] Performed By: #### 3 024-7, 3016-3, 05356-0 #### [facility] CLIA [id number] [address] [place] [address] [place] HbA1c (Bld)on 09-24-2023 Average glucose Estimated from glycated hemoglobin (Bld) [Mass/Vol] 120 mg/dL [facility] HbA1c (Bld) [Mass fraction] 5.8 % High 4.3 - 5.6 % [facility] Average glucose Estimated from glycated hemoglobin (Bld) [Mass/Vol] 120 mg/dL Normal [facility] Comment on above: Order Comment: Speci men Type: BLOOD SPECIMEN Ordering Facility: [facility] Address: [address] [place] [address] Result Comment: eAG: (Estimated average glucose) is a calculated value from HgbA1c and is commercial sales representative of the average blood glucose level in the last 2-3 month period. Performed By: #### 5 5454-3 #### [facility] CLIA [id number] [address] [place] [address] [place] HbA1c (Bld) [Mass fraction] 5.8 % High 4.3-5.6 [facility] Comment on above: Order Comment: Speci men Type: BLOOD SPECIMEN Ordering Facility: [facility] Address: [address] [place] [address] [place] [address] Result Comment: Amsunshine ican Diabetes Association guidelines indicate that patients with HgbA1c in the range 5.7-6.4% are at increased risk for development of diabetes, and intervention by lifestyle modification may be beneficial. HgbA1c greater or equal to 6.5% is considered diagnostic of diabetes. Performed By: #### 5 5454-3 #### [facility] CLIA [id number] [address] [place] [address] [place] Heart and Vascular [...] medication. She is being referred to a revenue research analyst. She denies taking NSAIDs for her pain. [...] with voice recognition artificial intelligence software, specifically RealityMine, Qardio and or Red Swoosh. Substitutions may have occurred due to the inherent limitations of voice recognition and artificial intelligence software. ATTESTATION: Documentation services were performed after the patient or guardian consented to allow [employer] to record this visit. NESTOR bombsight specialist and provider reviewed before signing. NESTOR: [...] 1 ta (more content not included)... Normal [facility] Comment on above: Result Comment: Elec tronically Signed By: Carlos ARCOS, Forest Jung\.br\Date and Time Signed: 09/14/23 12:38 EST\.br\Electronically Co-Signed By: Laura Bautista.br\Date and Time Co-Signed: 09/12/23 15:19 EST Consent for Treatmenton Consent for Treatment [id number]#1.00TIFF [facility] Physician Orderon 09-12-2023 Physician Order [id number]#1.00TIFF Normal [facility] MA Mamm Screen w/CAD if perf and 3D Bilon 09-02-2023 MA Mamm Screen w/CAD if perf and 3D Gunnar Exam Date/Time: 08/30/2023 13:37 EST Reason for Exam: Z08.04 SCREENING Report IMPRESSION: BIRADS 1 NEGATIVE, NORMAL INTERVAL FOLLOW-UP. EXAMINATION: MA Mamm Screen w/CAD if perf and 3D Gunnar CLINICAL HISTORY: Z08.04 SCREENING COMPARISON: Priors from 2013 RESULT: Digital [...] IS VERY IMPORTANT TO YOUR HEALTH. THE [place] [employer] GUIDELINES RECOMMEND THAT WOMEN 40 [...] Layton Terry MD Transcribed by: JOSE Technologist: [facility] Assessment: BI-RADS Category 1-Negative Recommendation: Normal interval follow-up Normal [facility] Consent for Treatmenton 08-06 Consent for Treatment [id number]#1.00TIFF Normal [facility] Outside Records Officeon Outside Records Office [id number]#1.00TIFF Normal [facility] Referrals Officeon Referrals Office [id number]#1.00TIFF Normal [facility] LE Venous Duplex Insuffic iency Bilaton 08-14-2023 [...] 0.3 Depth: Intrafascial Reflux (sec): None. Normal [facility] Consent for Treatmenton Consent for Treatment [id number]#1.00TIFF Normal [facility] ED Note-Physicianon 08-13-19 ED Note-Physician Basic Information Time Seen: Alisha RENEE Brian 08/12/2023 11:41 Chief Complaint pt c\o increased [...] day(s), # 21 tab(s), Refills(s) 0, Pharmacy: [id number], 162, cm, 08/12/23 11:38:00 EST, Height/Length Dosing, [...] Information Lenora CERVANTESMERS In 3 days 08/15/2023 [place] [id number] Business (1) Additional Instructions: Patient Education Hip Pain Attestation Patient seen and evaluated by the physician front office assistant. Attending physician was present in the emergency department and supervised care. This visit was performed by both the physician and an APC. I performed all aspects of the MDM as documented. This report was transcribed using voice recognition software. Every effort was made to ensure accuracy, however, inadvertently computerized nozzle worker mistakes may be present. Appropriate healthcare PPE [...] mg Tab, 10 (more content not included)... [facility] Comment on above: Result Comment: Elec tronically Signed By: Brian Brito PA-C\.br\Date and Time Signed: 08/12/23 14:35 EST\.br\Electronically Co-Signed By: James Richards DO\.br\Date and Time Co-Signed: 08/13/23 08:46 EST Physician Orderon 08-13-2023 Physician Order [id number]#1.00TIFF [facility] RAD - Ultrasound Impressiono n 08-13-2023 RAD - Ultrasound Impression [id number]#1.00TIFF [facility] Consent for Treatmenton Consent for Treatment [id number]#1.00TIFF [facility] Discharge Instructionson Discharge Instructions [id number]#1.00TIFF [facility] ED Clinical Summaryon 2023 ED Clinical Summary (Inserted Image. Carrie ble to display) [address] [address] ED Clinical Summary Person Information Name: DEJAH DYKES [facility] Age: 53 Years : 1970 Sex: Female Language: Ukrainian PCP: Lenora SANTOS PA-C Marital Status: Visit [...] 08/12/2023 12:41:21 08/12/2023 12:41:21 08/12/2023 12:41:21 ADDRESS: [facility] [place] [id number] PHYS DOC NOTES: MEDICAL INFORMATION: Prescriptions Given: New Medications [id number], [address] [place], [place] [id number], [phone] predniSONE (predniSONE 20 mg Tab) 3 Tablets [...] Follow up: With: Address: When: Lenora SANTOS [address] [place] [address] Business (1) In 3 days 08/15/2023 DIAGNOSIS: Hip pain Normal [facility] ED Patient Education Noteon 08-12-2023 ED [...] that cause pain. General instructions ? Take fmhb-iba-pqxzcpf and prescription medicines only as told by [...] provider. Document Revised: 12/07/2019 Document Reviewed: 12/07/2019 Elsevier Patient Education ? 2022 [employer] Normal [facility] ED Patient Summaryon 024 ED Patient Summary (Inserted Image. Carrie ble to display) [address] [address] Patient Discharge Instructions Person Information Name: DEJAH DYKES Age: 53 Years Arrival Date: 08/12/2023 11:28:07 Discharge Diagnosis: Hip pain Primary Care Physician: Lenora SANTOS PA-C Provider Information Primary Provider: James Richards DO Advanced Regulator Operator:Brian Briot PA-C The exam and treatment you received in the Emergency Department were for an urgent problem and are not intended as complete care. It is important that you follow up with a doctor, nurse practitioner, or physician?s front office assistant for ongoing care. If your symptoms [...] With: Address: When: Lenora SANTOS [address] [place] [address] Business (1) In 3 days 08/15/2023 In the event that this physician does not participate in your insurance network, please consult with your insurance company to find a nearby participating provider. Patient Education Materials: Hip Pain A MESSAGE TO ALL PATIENTS REGARDING OPIOIDS PRESCRIPTION OPIOIDS: WHAT YOU NEED TO KNOW Prescription opioids can be used to help relieve xpphnabf-ph-omfagu pain and are often prescribed following a [...] be struggling with addiction, tell your health wound care nurse and ask for guidance or call [facility]?S National Helpline at 0-805-352-HELP. v Source: Department of Health and [facility] (more content not included)... Normal [facility] Heart and Vascular Office/Cl inic Noteon [...] her stopped breathing episodes, she saw a marketing program manager. She is nervous because her blood [...] an upcoming appointment with endocrinology at the [facility] scheduled for 09/2023. Review of Systems [...] with voice recognition artificial intelligence software, specifically RealityMine, Qardio and or Red Swoosh. Substitutions may have occurred with voice recognition and artificial intelligence software. ATTESTATION: Documentation services were performed after patient or guardian consented to allow Sp[employer] to record this visit. NESTOR bombsight specialist and provider reviewed before signing. NESTOR: [...] Arthroscopy of knee (more content not included)... [facility] Comment on above: Result Comment: Elec tronically Signed By: Carlos ARCOS, Forest Jung\.br\Date and Time Signed: 08/11/23 20:37 EST\.br\Electronically Co-Signed By: Emily Jesus\.br\Date and Time Co-Signed: 08/02/23 16:46 EST Insurance Correspondenceon 0 08-08-2023 Insurance Correspondence [id number]#1.00TIFF [facility] Consent for Treatmenton 07-06 Consent for Treatment [id number]#1.00TIFF [facility] Physician Orderon 08-02-2023 Physician Order [id number]#1.00TIFF [facility] CNOVon 06-24-2023 CNOV Office Visit (ENDOCF ) -- DEJAH DYKES ([id number]) 1970 F Date Time Provider Department 06/24/23 [...] - Biotin- none - Amiodarone- none - [place]- none - Head/neck radiation- none Interval history: [...] Pertinent procedure/alexys (more content not included)... Normal [facility] T4 Free SerPl-mCncon 023 Free T4 [Mass/Vol] 1.0 ng/dL Normal 0.9-1.7 [facility] Comment on above: Order Comment: Pauline giordano Type: BLOOD SPECIMEN Ordering Facility: [facility] Address: [address] [place] [address] Performed By: #### 3 016-3, 3024-7 #### [facility] CLIA [id number] [address] [place] [address] [place] TSH SerPl-aCncon 06-24-2023 TSH Qn 3.580 m[IU]/L Normal 0.270-4.20 0 [facility] Comment on above: Order Comment: Pauline giordano Type: BLOOD SPECIMEN Ordering Facility: [facility] Address: [address] [place] [address] Performed By: #### 3 016-3, 3024-7 #### [facility] CLIA [id number] [address] [place] [address] [place] Referrals Officeon 3 Referrals Office [id number]#1.00TIFF Normal [facility] Cortis SerPl-mCncon 05-14-20 23 Cortisol [Mass/Vol] 0.5 ug/dL Low 4.8-19.5 [facility] Comment on above: Order Comment: Pauline giordano Type: BLOOD SPECIMEN Ordering Facility: [facility] Address: [address] [place], [place] [address], [place] [address] Result Comment: Prov ided reference range is from 6-10 AM sample collection time. Cortisol Reference Range: 6-10 AM = 4.8-19.5 ug/dL, 4-8 PM = 2.5-11.9 ug/dL Performed By: #### 3 024-7, 3016-3, 42685-3 #### [facility] CLIA [id number] [address] [place] [address] [place] DEXAMETHASONEon 05-14-2023 DEXAMETHASONE 376.1 ng/dL Normal [facility] Comment on above: Order Comment: Speci men Type: BLOOD SPECIMEN Ordering Facility: [facility] Address: [place] [address] Result Comment: INTE RPRETIVE INFORMATION: Dexamethasone, Serum [...] developed and its performance characteristics determined by [facility]. It has not been cleared or approved by the US Food and Drug Administration. This test was performed in a CLIA certified laboratory and is intended for clinical purposes. Performed By: [facility] [address] [place] [address] Unarmed Security Officer: Nitin Khoury MD, PhD [place] Number: [id number] Performed By: #### 3 024-7, 3016-3, 67145-4 #### [facility] CLIA [id number] [address] [place] [address] [place] Aldost SerPl-mCncon 05-06-20 23 Aldosterone [Mass/Vol] 7.6 ng/dL Normal 0.0-<35.4 Cl [facility] Comment on above: Order Comment: Speci men Type: BLOOD SPECIMEN Ordering Facility: [facility] Address: [place] [id number] Result Comment: The reference interval for serum/plasma [...] ng/dL. Performed By: #### 3 024-7, 3016-3, 80642-7 #### [facility] CLIA [id number] [address] [place] [address] [place] Basic metabolic 2000 panelon 05-06-2023 Anion gap [Moles/Vol] 11 mmol/L Normal 9-18 [facility] Comment on above: Order Comment: Speci men Type: BLOOD SPECIMEN Ordering Facility: [facility] Address: [address] Performed By: #### 3 024-7, 3015-3, 93023-8 #### [facility] CLIA [id number] [address] [place] [address] [place] Calcium [Mass/Vol] 9.4 mg/dL Normal 8.5-10.2 [facility] Comment on above: Order Comment: Speci men Type: BLOOD SPECIMEN Ordering Facility: [facility] Address: [address] [place] [address] Performed By: #### 3 024-7, 3015-3, 57397-4 #### [facility] CLIA [id number] [address] [place] [address] [place] Chloride [Moles/Vol] 104 mmol/L Normal 97-105 [facility] Comment on above: Order Comment: Speci men Type: BLOOD SPECIMEN Ordering Facility: [facility] Address: [address] [place] [address] Performed By: #### 3 024-7, 3015-3, 33861-1 #### [facility] CLIA [id number] [address] [place] [address] [place] CO2 [Moles/Vol] 26 mmol/L Normal 22-30 [facility] Comment on above: Order Comment: Speci men Type: BLOOD SPECIMEN Ordering Facility: [facility] Address: [address] [place] [address] Performed By: #### 3 024-7, 3016-3, 61855-3 #### [facility] CLIA [id number] [address] [place] [address] [place] Creatinine [Mass/Vol] 0.84 mg/dL Normal 0.58-0.96 [facility] Comment on above: Order Comment: Speci men Type: BLOOD SPECIMEN Ordering Facility: [facility] Address: [address] [place] [address] Performed By: #### 3 024-7, 6-3, 34836-7 #### [facility] [place] [id number] [address] [place] [address] [place] Creatinine and Glomerular filtration rate.predicted panel (S/P/Bld) 83 mL/min/1.73m??? Normal >=60 [facility] Comment on above: Order Comment: Speci men Type: BLOOD SPECIMEN Ordering Facility: [facility] Address: [address] [place] [address] Result Comment: Brenda mated Glomerular Filtration Rate [...] GFR. Performed By: #### 3 024-7, 3016-3, 88425-3 #### [facility] CLIA [id number] [address] [place] [address] [place] Glucose [Mass/Vol] 104 mg/dL High 74-99 [facility] Comment on above: Order Comment: Speci men Type: BLOOD SPECIMEN Ordering Facility: [facility] Address: [address] [place] [address] Result Comment: The [place] Diabetes Association (ADA) provides guidance for cutoff [...] Standards of Medical Care in Diabetes 2016, [place] [employer] Association. Diabetes Care. 2016.39(Suppl 1). Performed By: #### 3 024-7, 3016-3, 13412-7 #### [facility] CLIA [id number] [address] [place] [address] [place] Potassium [Moles/Vol] 3.9 mmol/L Normal 3.7-5.1 [facility] Comment on above: Order Comment: Pauline giordano Type: BLOOD SPECIMEN Ordering Facility: [facility] Address: [address] [place] [address] Performed By: #### 3 024-7, 3016-3, 40090-9 #### [facility] CLIA [id number] [address] [place] [address] [place] Sodium [Moles/Vol] 141 mmol/L Normal 136-144 [facility] Comment on above: Order Comment: Parvini men Type: BLOOD SPECIMEN Ordering Facility: [facility] Address: [address] [place] [address] Performed By: #### 3 024-7, 3016-3, 65201-4 #### [facility] CLIA [id number] [facility] [place] [address] [place] Urea nitrogen [Mass/Vol] 9 mg/dL Normal 7-21 [facility] Comment on above: Order Comment: Speci men Type: BLOOD SPECIMEN Ordering Facility: [facility] Address: [place] [id number] Performed By: #### 3 024-7, 3016-3, 11412-5 #### [facility] CLIA [id number] [address] [facility] [id number] CNOVon 05-06-2023 CNOV Office Visit (ENDOCF ) -- DEJAH DYKES ([id number]) 1970 F Date Time Provider Department 05/06/23 [...] - Biotin- none - Amiodarone- none - Gracemont- none - Head/neck radiation- none I have [...] file t (more content not included)... Normal [facility] DIRECT RENIN PLASMAon 2022 DIRECT RENIN 11.8 pg/mL Normal 3.6-81.6 [facility] Comment on above: Order Comment: Speci men Type: BLOOD SPECIMEN Ordering Facility: [facility] Address: [address] [place] [address] Result Comment: A ra harika of aldosterone [...] years: 2.5-45.1 pg/mL Performed By: #### 3 967-5, 5575-3, 57918-5 #### [facility] CLIA [id number] [address] [place] [address] [place] PATIENT UPRIGHT OR SUPINE Upright Normal [facility] Comment on above: Order Comment: Speci men Type: BLOOD SPECIMEN Ordering Facility: [facility] Address: [address] [place] [address] Performed By: #### 3 024-7, 3016-3, 62259-5 #### [facility] CLIA [id number] [address] [place] [address] [place] T4 Free SerPl-mCncon 023 Free T4 [Mass/Vol] 1.3 ng/dL Normal 0.9-1.7 [facility] Comment on above: Order Comment: Speci men Type: BLOOD SPECIMEN Ordering Facility: [facility] Address: [address] [place] [address] Performed By: #### 3 024-7, 3016-3, 68925-7 #### [facility] CLIA [id number] [address] [place] [address] [place] TSH SerPl-aCncon 05-06-2023 TSH Qn 1.590 m[IU]/L Normal 0.270-4.20 0 [facility] Comment on above: Order Comment: Speci men Type: BLOOD SPECIMEN Ordering Facility: [facility] Address: [address] [place] [address] Performed By: #### 3 024-7, 3016-3, 55269-3 #### [facility] CLIA [id number] [address] [place] [address] [place] Patient Eval Forms Officeon 04-09-2023 Patient Eval Forms Office [id number]:127 Normal [facility] Consent for Treatmenton Consent for Treatment [id number]#[id number]:127 Normal [facility] Sleep Office/Clinic Noteon 0 04-05-2023 Sleep Office/Clinic [...] Hodge, [place], [place] Within 1 year [address] [facility] [place] [address]- Additional Instructions: Problem List/Past Medical [...] Alcohol - (more content not included)... Normal [facility] Comment on above: Result Comment: Elec tronically Signed By: Donald ARCOS, Juan Hodge\.br\Date and Time Signed: 04/05/23 10:43 EDT Activated partial thrombopla stin time (aPTT) in platelet poor plasma by coagulation aOrdered By: Regino Metcalf on 03-10-2023 aPTT Coag (PPP) [Time] 28.6 s 25.1-36.5 [facility] Alanine aminotransferase [En zymatic activity/volume] in Serum or PlasmaOrdered By: Regino Metcalf on 03-10-2023 ALT [Catalytic activity/Vol] 44 U/L 7-52 [facility] Albumin [Mass/volume] in Ser um or Plasma by Bromocresol green (BCG) dye binding methoOrdered By: Regino Metcalf on 03-10-2023 Albumin BCG dye [Mass/Vol] 4.1 g/dL 3.5-5.7 [facility] Alkaline phosphatase [Enzyma tic activity/volume] in Serum or PlasmaOrdered By: Regino Metcalf on 03-10-2023 ALP [Catalytic activity/Vol] 67 U/L 34-104 [facility] Aspartate aminotransferase [ Enzymatic activity/volume] in Serum or PlasmaOrdered By: Regino Metcalf on 03-10-2023 AST [Catalytic activity/Vol] 41 U/L 13-39 [facility] Basophils Auto (Bld) [#/Vol] Ordered By: Regino Metcalf on 03-10-2023 Basophils (Bld) [#/Vol] 0.1 10*3/uL 0.0-0.2 [facility] Basophils/100 WBC Auto (Bld) Ordered By: Regino Metcalf on 03-10-2023 Basophils/100 WBC (Bld) 1.5 % . [facility] Bilirubin Test strip Ql (U)O rdered By: Regino Metcalf on 03-10-2023 Bilirubin Ql (U) Negative Negative [facility] Bilirubin.direct [Mass/volum e] in Serum or PlasmaOrdered By: Regino Metcalf on 03-10-2023 Bilirubin.direct [Mass/Vol] 0.10 mg/dL 0.03-0.18 [facility] Bilirubin.total [Mass/volume ] in Serum or PlasmaOrdered By: Regino Metcalf on 03-10-2023 Bilirubin [Mass/Vol] 0.5 mg/dL 0.3-1.0 [facility] Calcium [Mass/volume] in Ser um or PlasmaOrdered By: Regino Mtecalf on 03-10-2023 Calcium [Mass/Vol] 9.0 mg/dL 8.6-10.3 [facility] Carbon dioxide, total [Moles /volume] in Serum or PlasmaOrdered By: Regino Metcalf on 03-10-2023 CO2 [Moles/Vol] 26.6 mmol/L 21.0-31.0 [facility] Chloride [Moles/volume] in S nusrat or PlasmaOrdered By: Regino Metcalf on 03-10-2023 Chloride [Moles/Vol] 104 mmol/L 98-107 [facility] Color Auto (U)Ordered By: Norris Metcalf on 03-10-2023 Color (U) Yellow Yellow [facility] Creatine kinase [Enzymatic a ctivity/volume] in Serum or PlasmaOrdered By: Regino Metcalf on 03-10-2023 CK [Catalytic activity/Vol] 119 U/L 30-223 [facility] Creatinine [Mass/volume] in Serum or PlasmaOrdered By: Regino Metcalf on 03-10-2023 Creatinine [Mass/Vol] 0.86 mg/dL 0.60-1.20 [facility] Eosinophils Auto (Bld) [#/Vo l]Ordered By: Regino Metcalf on 03-10-2023 Eosinophils (Bld) [#/Vol] 0.1 10*3/uL 0.0-0.45 [facility] Eosinophils/100 WBC Auto (Bl d)Ordered By: Regino Metcalf on 03-10-2023 Eosinophils/100 WBC (Bld) 1.5 % . [facility] Erythrocyte distribution wid th Auto (RBC) [Ratio]Ordered By: Regino Metcalf on 03-10-2023 Erythrocyte distribution width (RBC) [Ratio] 13.3 % 11.9-15.3 [facility] Globulin Calc (S) [Mass/Vol] Ordered By: Regino Metcalf on 03-10-2023 Globulin (S) [Mass/Vol] 3.0 g/dL [facility] Glucose [Mass/volume] in Ser um or PlasmaOrdered By: Regino Metcalf on 03-10-2023 Glucose [Mass/Vol] 95 mg/dL 70-100 [facility] Comment on above: ADA recommended refe rence rangeRandom Glucose Reference Range is dependent on time and content of last meal. Glucose of more than 200 mg/dL in a nonstressed, ambulatory subject supports the diagnosis of Diabetes Mellitus. Hematocrit Auto (Bld) [Volum e fraction]Ordered By: Regino Metcalf on 03-10-2023 Hematocrit (Bld) [Volume fraction] 43.2 % 34.0-46.4 [facility] Hemoglobin [Mass/volume] in BloodOrdered By: Regino Metcalf on 03-10-2023 Hemoglobin (Bld) [Mass/Vol] 14.6 g/dL 11.8-15.4 [facility] Ketones Auto test strip (U) [Mass/Vol]Ordered By: Regino Metcalf on 03-10-2023 Ketones (U) [Mass/Vol] Negative Negative [facility] - CoagulationOrde red By: Regino Metcalf on 03-10-2023 PT Coag (PPP) [Time] 11.3 s 9.0-12.9 [facility] Leukocytes [#/volume] correc toya for nucleated erythrocytes in Blood by Automated counOrdered By: Regino Metcalf on 03-10-2023 WBC corrected for nucl RBC Auto (Bld) [#/Vol] 8.9 10*3/uL 3.8-11.6 [facility] Lymphocytes Auto (Bld) [#/Vo l]Ordered By: Regino Metcalf on 03-10-2023 Lymphocytes (Bld) [#/Vol] 3.8 10*3/uL 1.00-4.8 [facility] Lymphocytes/100 WBC Auto (Bl d)Ordered By: Regino Metcalf on 03-10-2023 Lymphocytes/100 WBC (Bld) 42.3 % . [facility] MCH Auto (RBC) [Entitic mass ]Ordered By: Regino Metcalf on 03-10-2023 MCH (RBC) [Entitic mass] 30.5 pg 24.7-34.3 [facility] MCHC Auto (RBC) [Mass/Vol]Or dered By: Regino Metcalf on 03-10-2023 MCHC (RBC) [Mass/Vol] 33.8 g/dL 32.0-35.0 [facility] MCV Auto (RBC) [Entitic vol] Ordered By: Regino Metcalf on 03-10-2023 MCV (RBC) [Entitic vol] 90.2 fL 80-100 [facility] Magnesium [Mass/volume] in S nusrat or PlasmaOrdered By: Regino Metcalf on 03-10-2023 Magnesium [Mass/Vol] 2.1 mg/dL 1.9-2.7 [facility] Monocyte distribution width [Entitic volume] in Blood by AutomatedOrdered By: Regino Metcalf on 03-10-2023 Monocyte distribution width Auto (Bld) [Entitic vol] 19.08 % 0.00-20.00 [facility] Monocytes Auto (Bld) [#/Vol] Ordered By: Regino Metcalf on 03-10-2023 Monocytes (Bld) [#/Vol] 0.8 10*3/uL 0.0-0.8 [facility] Monocytes/100 WBC Auto (Bld) Ordered By: Regino Metcalf on 03-10-2023 Monocytes/100 WBC (Bld) 8.9 % . [facility] Natriuretic peptide B [Mass/ Vol]Ordered By: Regino Metcalf on 03-10-2023 Natriuretic peptide B (Bld) [Mass/Vol] 28.0 pg/mL 5-100 [facility] Neutrophils Auto (Bld) [#/Vo l]Ordered By: Regino Metcalf on 03-10-2023 Neutrophils (Bld) [#/Vol] 4.1 10*3/uL 1.8-7.7 [facility] Neutrophils/100 WBC Auto (Bl d)Ordered By: Regino Metcalf on 03-10-2023 Neutrophils/100 WBC (Bld) 45.8 % . [facility] Nitrite Test strip Ql (U)Ord ered By: Regino Metcalf on 03-10-2023 Nitrite Ql (U) Negative Negative [facility] No Panel InformationOrdered By: Regino Metcalf on 03-10-2023 D-Dimer Quantitative (PE/DVT) < 200 ng/mL 0-243 [facility] Comment on above: The reference range [...] conditions. Estimated GFR (CKD-EPI) > 60.0 mL/Min [facility] Creatinine Clearance (Chem 95.11 [facility] Nucleated erythrocytes [Pres ence] in Blood by Automated countOrdered By: Regino Metcalf on 03-10-2023 Nucleated RBC Auto Ql (Bld) 0.1 /100{WBC} 0-0.5 [facility] Platelet mean volume Auto (B ld) [Entitic vol]Ordered By: Regino Metcalf on 03-10-2023 Platelet mean volume (Bld) [Entitic vol] 9.2 fL 6.3-10.7 [facility] Platelet poor plasma interna tional normalized ratio (INR) by coagulation assay (relatOrdered By: Regino Metcalf on 03-10-2023 INR Coag (PPP) [Relative time] 1.0 {INR} [facility] Comment on above: INR Therapeutic Rang [...] 03-10-2023 Platelets (Bld) [#/Vol] 187 10*3/uL 150-450 [facility] Potassium [Moles/volume] in Serum or PlasmaOrdered By: Regino Metcalf on 03-10-2023 Potassium [Moles/Vol] 3.7 mmol/L 3.5-5.1 [facility] Protein Auto test strip (U) [Mass/Vol]Ordered By: Regino eMtcalf on 03-10-2023 Protein (U) [Mass/Vol] Negative Negative [facility] Protein [Mass/volume] in Ser um or PlasmaOrdered By: Regino Metcalf on 03-10-2023 Protein [Mass/Vol] 7.1 g/dL 6.4-8.9 [facility] RBC Auto (Bld) [#/Vol]Ordere d By: Regino Metcalf on 03-10-2023 RBC (Bld) [#/Vol] 4.79 10*6/uL 3.60-5.00 [facility] Serum or plasma albumin/glob ulin mass ratioOrdered By: Regino Metcalf on 03-10-2023 Albumin/Globulin [Mass ratio] 1.4 {ratio} [facility] Serum or plasma anion gap de terminationOrdered By: Regino Metcalf on 03-10-2023 Anion gap [Moles/Vol] 15.1 mmol/L 6.0-15.0 [facility] Serum or plasma non-glucuron idated bilirubin measurement (mass/volume)Ordered By: Regino Metcalf on 03-10-2023 Bilirubin.indirect [Mass/Vol] 0.4 mg/dL [facility] Sodium [Moles/volume] in Ser um or PlasmaOrdered By: Regino Metcalf on 03-10-2023 Sodium [Moles/Vol] 142 mmol/L 136-145 [facility] Specific gravity Auto test s trip (U) [Rel density]Ordered By: Regino Metcalf on 03-10-2023 Specific gravity (U) [Rel density] 1.021 1.001-1.03 0 [facility] Thyrotropin [Units/volume] i n Serum or PlasmaOrdered By: Regino Metcalf on 03-10-2023 TSH Qn 2.28 m[IU]/L 0.45-5.33 [facility] Thyroxine (T4) free [Mass/vo lume] in Serum or PlasmaOrdered By: Regino Metcalf on 03-10-2023 Free T4 [Mass/Vol] 0.77 ng/dL 0.61-1.12 [facility] Troponin I.cardiac [Mass/vol ume] in Serum or Plasma by Detection limit <= 0.01 ng/Ordered By: Regino Metcalf on 03-10-2023 Troponin I.cardiac DL <= 0.01 ng/mL [Mass/Vol] 3.2 pg/mL 0.0-15.0 [facility] Urea nitrogen [Mass/volume] in Serum or PlasmaOrdered By: Regino Metcalf on 03-10-2023 Urea nitrogen [Mass/Vol] 14 mg/dL 7-25 [facility] Urine clarity by refractomet ry automatedOrdered By: Regino Metcalf on 03-10-2023 Clarity Refractometry automated (U) Clear Clear [facility] Urine glucose measurement by automated test strip (mass/volume)Ordered By: Regino Metcalf on 03-10-2023 Glucose Auto test strip (U) [Mass/Vol] Normal mg/dL Normal [facility] Urine hemoglobin detection b y automated test stripOrdered By: Regino Metcalf on 03-10-2023 Hemoglobin Auto test strip Ql (U) Negative Negative [facility] Urine leukocyte esterase det ection by automated test stripOrdered By: Regino Metcalf on 03-10-2023 Leukocyte esterase Auto test strip Ql (U) Negative Negative [facility] Urobilinogen Auto test strip (U) [Mass/Vol]Ordered By: Regino Khalilzi on 03-10-2023 Urobilinogen (U) [Mass/Vol] Normal mg/dL Normal [facility] WBC Auto (Bld) [#/Vol]Ordere d By: Regino Metcalf on 03-10-2023 WBC (Bld) [#/Vol] 8.9 10*3/uL 3.8-11.6 [facility] pH Auto test strip (U)Ordere d By: Regino Metcalf on 03-10-2023 pH (U) 5.5 [pH] 5.0-9.[address] [facility] [address] Abdomen/Pelvis w/o Contra ston 03-22-2022 [...] by Dm Taylor on 03/22/2022 0937 Normal [facility] Comprehensive Metabolic Pane seb 12-19-2021 Albumin [Mass/Vol] 4.4 g/dL Normal 3.6-5.1 [facility] Comment on above: Performed By: #### C MP #### [facility] [address] [place], [place] [id number] Albumin/Globulin [Mass ratio] 1.7 {ratio} Normal 1.0-2.5 [facility] Comment on above: Performed By: #### C MP #### [facility] [address] [place], [place] [id number] ALP [Catalytic activity/Vol] 76 U/L Normal 35-119 [facility] Comment on above: Performed By: #### C MP #### [facility] [address] [place], [place] [id number] ALT [Catalytic activity/Vol] 22 U/L Normal 6-33 [facility] Comment on above: Result Comment: 07/05 Female reference range changed. Performed By: #### C MP #### [facility] [address] [place], [place] [id number] Anion gap [Moles/Vol] 16 mmol/L Normal 12-20 [facility] Comment on above: Result Comment: Effe ctive 08/10/2019 reference range changed. Performed By: #### C MP #### [facility] [address] [place], [place] [id number] AST [Catalytic activity/Vol] 25 U/L Normal 9-34 [facility] Comment on above: Performed By: #### C MP #### [facility] [address] [place], [place] [id number] Bilirubin [Mass/Vol] 0.50 mg/dL Normal 0.30-1.20 [facility] Comment on above: Performed By: #### C MP #### [facility] [address] [place], [place] [id number] BUN/CREA 17 Ratio Normal 6-22 [facility] Comment on above: Performed By: #### C MP #### [facility] [address] [place], [place] [id number] Calcium [Mass/Vol] 9.8 mg/dL Normal 8.6-10.2 Izabela doherty [employer] Comment on above: Performed By: #### C MP #### [facility] [address] [place], [place] [id number] Chloride [Moles/Vol] 103 mmol/L Normal 98-107 [facility] Comment on above: Performed By: #### C MP #### [facility] [address] [place], [place] [id number] CO2 [Moles/Vol] 26 mmol/L Normal 20-31 [facility] Comment on above: Performed By: #### C MP #### [facility] [address] [place], [place] [id number] Creatinine [Mass/Vol] 0.8 mg/dL Normal 0.6-1.4 [facility] Comment on above: Performed By: #### C MP #### [facility] [address] [place], [place] [id number] eGFRAA 95 mL/min/1.73m2 Normal >60 [facility] Comment on above: Performed By: #### C MP #### [facility] [address] [place], [place] [id number] eGFRNAA 79 mL/min/1.73m2 Normal >60 [facility] Comment on above: Performed By: #### C MP #### [facility] [address] [place], [place] [id number] Globulin (S) [Mass/Vol] 2.6 g/dL Normal 1.9-3.7 [facility] Comment on above: Performed By: #### C MP #### [facility] [address] [place], [place] [id number] Glucose [Mass/Vol] 128 mg/dL High 65-99 [facility] Comment on above: Result Comment: For FASTING Glucose --- ADA reference ranges: Normal 65-99 mg/dl Prediabetes 100-125 Diabetes >/= 126 Performed By: #### C MP #### [facility] [address] [place], [place] [id number] Potassium [Moles/Vol] 3.3 mmol/L Low 3.5-5.5 [facility] Comment on above: Performed By: #### C MP #### [facility] [address] [place], [place] [id number] Protein [Mass/Vol] 7.0 g/dL Normal 6.1-8.1 Tito rn [facility] Comment on above: Performed By: #### C MP #### [facility] [address] [place], [place] [id number] Sodium [Moles/Vol] 142 mmol/L Normal 135-146 [facility] Comment on above: Performed By: #### C MP #### [facility] [address] [place], [place] [id number] Urea nitrogen [Mass/Vol] 13 mg/dL Normal 7-25 [facility] Comment on above: Performed By: #### C MP #### [facility] [address] [place], [place] [id number] CHEMISTRYOrdered By: SYSTEM SYSTEM on 12-15-2021 Troponin [...] PM) Normal Negative [facility] UA Auto SS [place].plasma/[place]. RBC (Bld) [Mass ratio] 0-3 /HPF Normal [...] [facility] UA Auto SS Urobilinogen Qn (U) 0.5031261 {Tana'U}/dL Normal 0.0 - 1.0 EU/dL [facility] UA Auto SS WBC Auto Ql (U) Negative (12/15/21 1:50 PM) Normal Negative [facility] UA Auto SS WBC LM.HPF (Urine sed) [#/Area] 0-5 /HPF Normal 0-5/HPF [facility] UA Auto SS XR C-SPINE MIN 4 VIEWSon XR C-SPINE MIN 4 VIEWS Patient: Anabel DYKES Exam Date: 09/11/2019 : 1970 Gender:F Ordering : DR MATTHEW RIVER M.D. Admission #: [id number] Family : Order #: [id number] CLICK HERE TO VIEW EXAM RADIOLOGY REPORT [...] Medeiros M.D. on 09/11/2019 at 11:22 Normal [facility] Vital Signs Date Time Vital Sign Value Performing Clinician Faci lity 05-19-2024 13:04040 Body height 161.29 cm THELMA Santos Work Phone: [facility] 05-19-2024 13:04-0400 Body mass index (BMI) [Ratio] 42 kg/m2 THELMA Santos Work Phone: [facility] 05-19-2024 13:04-0400 Body weight 109.31 kg THELMA Santos Work Phone: [facility] 05-04-2024 13:52-0400 Body mass index (BMI) [Ratio] 43.1 kg/m2 PAJamilC Lenora Tom Work Phone: [facility] 05-04-2024 10:54-0400 Body height 161.29 cm PA-C Lenora Tom Work Phone: [facility] 05-04-2024 10:54-0400 Body weight 112.17 kg PA-C Lenora Tom Work Phone: [facility] 04-30-2024 14:49-0400 Body mass index (BMI) [Ratio] 43.1 kg/m2 PA-C Lenora Tom Work Phone: [facility] 04-30-2024 14:41-0400 Body height 161.29 cm PA-C Lenora Tom Work Phone: [facility] 04-30-2024 14:41-0400 Body weight 111.13 kg PA-C Lenora Tom Work Phone: [facility] 04-24-2024 09:40-0400 Body height 161.29 cm PA-C Lenora Tom Work Phone: [facility] 04-24-2024 09:40-0400 Body mass index (BMI) [Ratio] 43.8 kg/m2 PA-C Lenora Tom Work Phone: [facility] 04-24-2024 09:40-0400 Body weight 114.05 kg PA-C Lenora Tom Work Phone: [facility] 04-24-2024 09:40-0400 Diastolic blood pressure 65 mm[Hg] PA-C Lenora Tom Work Phone: [facility] 04-24-2024 09:40-0400 Heart rate 72 /min PA-C Lenora Tom Work Phone: [facility] 04-24-2024 09:40-0400 Respiratory rate 18 /min PA-C Lenora Tom Work Phone: [facility] 04-24-2024 09:40-0400 SaO2% (BldA) [Mass fraction] 100 % PA-C Lenora Santos Work Phone: [facility] 04-24-2024 09:40-0400 Systolic blood pressure 128 mm[Hg] PA-C Lenora Santos Work Phone: [facility] 03-18-2024 08:17-0400 Diastolic blood pressure 58 mm[Hg] Tamikoisabel Robert [facility] 03-18-2024 08:17-0400 Heart rate 64 /min Tamiko Robert [facility] 03-18-2024 08:17-0400 Mean blood pressure 82 mm[Hg] Tamiko Robert [facility] 03-18-2024 08:17-0400 Systolic blood pressure 130 mm[Hg] Tamikoisabel Robert [facility] 03-17-2024 09:01-0400 Body height 161.29 cm PA-C Lenora Santos Work Phone: [facility] 03-17-2024 09:01-0400 Body mass index (BMI) [Ratio] 43.1 kg/m2 PA-C Lenora Santos Work Phone: [facility] 03-17-2024 09:01-0400 Body weight 112.12 kg PA-C Lenora Santos Work Phone: [facility] 03-17-2024 09:01-0400 Diastolic blood pressure 73 mm[Hg] PA-C Lenora Santos Work Phone: [facility] 03-17-2024 09:01-0400 Heart rate 60 /min MEHRAN-C Lenora Santos Work Phone: [facility] 03-17-2024 09:01-0400 Respiratory rate 18 /min PA-C Lenora Santos Work Phone: [facility] 03-17-2024 09:01-0400 SaO2% (BldA) [Mass fraction] 99 % PAJamilC Lenora Santos Work Phone: [facility] 03-17-2024 09:01-0400 Systolic blood pressure 133 mm[Hg] PA-C Lenora Santos Work Phone: [facility] 03-03-2024 15:00-0400 Heart rate 62 /min Hu Davis [facility] 03-03-2024 15:00-0400 SaO2% (BldA) [Mass fraction] 100 % Hu Davis [facility] 03-03-2024 15:00-0400 Diastolic blood pressure 76 mm[Hg] Hu Davis [facility] 03-03-2024 15:00-0400 Mean blood pressure 97 mm[Hg] [facility] [facility] 03-03-2024 15:00-0400 Systolic blood pressure 141 mm[Hg] [facility] 03-03-2024 14:59-0400 Respiratory rate 16 /min [facility] 03-03-2024 14:52-0400 Diastolic blood pressure 92 mm[Hg] Hu [facility] 03-03-2024 14:52-0400 Heart rate 60 /min Hu Davis [facility] 03-03-2024 14:52-0400 SaO2% (BldA) [Mass fraction] 100 % Hu Davis [facility] 03-03-2024 14:52-0400 Systolic blood pressure 153 mm[Hg] Hu [facility] 03-03-2024 13:53-0400 Heart rate 66 /min Hu Davis [facility] 03-03-2024 13:53-0400 SaO2% (BldA) [Mass fraction] 99 % Hu Davis [facility] 03-03-2024 13:53-0400 Respiratory rate 14 /min Hu Davis [facility] 03-03-2024 13:53-0400 Diastolic blood pressure 84 mm[Hg] Hu Davis [facility] 03-03-2024 13:53-0400 Mean blood pressure 108 mm[Hg] Hu [facility] 03-03-2024 13:53-0400 Systolic blood pressure 158 mm[Hg] Hu [facility] 03-03-2024 13:53-0400 Body temperature 98.24 [degF] Hu [facility] 01-29-2024 08:14-0400 Diastolic blood pressure 73 mm[Hg] Tamikoisabel Robert [facility] 01-29-2024 08:14-0400 Heart rate 66 /min Tamiko Robert [facility] 01-29-2024 08:14-0400 Mean blood pressure 91 mm[Hg] Tamiko Robert [facility] 01-29-2024 08:14-0400 Respiratory rate 14 /min Tamiko Robert [facility] 01-29-2024 08:14-0400 Systolic blood pressure 128 mm[Hg] Tamiko Robert [facility] 12-24-2023 13:08-0400 Body height 161.29 cm THELMA Santos Work Phone: [facility] 12-24-2023 13:08-0400 Body mass index (BMI) [Ratio] 43.8 kg/m2 PA-C Lenora Tom Work Phone: [facility] 12-24-2023 13:08-0400 Body weight 114.02 kg PA-C Lenora Tom Work Phone: [facility] 12-24-2023 13:08-0400 Diastolic blood pressure 71 mm[Hg] PA-C Lenora Tom Work Phone: [facility] 12-24-2023 13:08-0400 Heart rate 62 /min PA-C Lenora Tom Work Phone: [facility] 12-24-2023 13:08-0400 Systolic blood pressure 132 mm[Hg] PA-C Lenora Tom Work Phone: [facility] 12-06-2023 11:40-0400 Diastolic blood pressure 70 mm[Hg] PA-C Lenora Tom Work Phone: [facility] 12-06-2023 11:40-0400 Heart rate 59 /min PA-C Lenora Tom Work Phone: [facility] 12-06-2023 11:40-0400 Respiratory rate 16 /min PA-C Lenora Tom Work Phone: [facility] 12-06-2023 11:40-0400 SaO2% (BldA) [Mass fraction] 99 % PA-C Lenora Tom Work Phone: [facility] 12-06-2023 11:40-0400 Systolic blood pressure 120 mm[Hg] PA-C Lenora Tom Work Phone: [facility] 12-06-2023 09:13-0400 Body height 162.56 cm PA-C Lenora Tom Work Phone: [facility] 12-06-2023 09:13-0400 Body weight 116.57 kg THELMA Santos Work Phone: [facility] 11-11-2023 09:08-0400 Body height 162.6 cm Alfredo Yancey i, MD Work Phone: [facility] 11-11-2023 09:08-0400 Body weight 116 kg Alfredo Yancey i, MD Work Phone: [facility] 11-11-2023 09:08-0400 Diastolic blood pressure 81 mm[Hg] Alfredo Cruz MD Work Phone: [facility] 11-11-2023 09:08-0400 Heart rate 75 /min Alfredo Yancey i, MD Work Phone: [facility] 11-11-2023 09:08-0400 SaO2% (BldA) [Mass fraction] 100 % Alfredo Cruz MD Work Phone: [facility] 11-11-2023 09:08-0400 Systolic blood pressure 138 mm[Hg] Alfredo Cruz MD Work Phone: [facility] 10-30-2023 11:30-0400 Heart rate 60 /min Hu Davis [facility] 10-30-2023 11:30-0400 SaO2% (BldA) [Mass fraction] 100 % Hu Davis [facility] 10-30-2023 11:30-0400 Diastolic blood pressure 83 mm[Hg] Hu Davis [facility] 10-30-2023 11:30-0400 Mean blood pressure 100 mm[Hg] Hu Davis [facility] 10-30-2023 11:30-0400 Systolic blood pressure 134 mm[Hg] Hu aDvis [facility] 10-30-2023 11:20-0400 Diastolic blood pressure 81 mm[Hg] Hu Davis [facility] 10-30-2023 11:20-0400 Heart rate 65 /min Hu Davis [facility] 10-30-2023 11:20-0400 SaO2% (BldA) [Mass fraction] 100 % Hu Davis [facility] 10-30-2023 11:20-0400 Systolic blood pressure 164 mm[Hg] Hu Davis [facility] 10-30-2023 10:21-0400 Heart rate 66 /min Hu Davis [facility] 10-30-2023 10:21-0400 SaO2% (BldA) [Mass fraction] 99 % Hu Davis [facility] 10-30-2023 10:21-0400 Body temperature 97.88 [degF] Hu Davis [facility] 10-30-2023 10:20-0400 Diastolic blood pressure 81 mm[Hg] Hu Davis [facility] 10-30-2023 10:20-0400 Mean blood pressure 98 mm[Hg] Hu Davis [facility] 10-30-2023 10:20-0400 Systolic blood pressure 133 mm[Hg] Hu Davis [facility] 10-30-2023 10:18-0400 Respiratory rate 14 /min Hu Davis [facility] 10-18-2023 13:58-0400 Body height 162.56 cm THELMA Santos Work Phone: [facility] 10-18-2023 13:58-0400 Body mass index (BMI) [Ratio] 45.8 kg/m2 THELMA Santos Work Phone: [facility] 10-18-2023 13:58-0400 Body weight 121.1 kg THELMA Santos Work Phone: [facility] 10-17-2023 08:12-0400 Diastolic blood pressure 75 mm[Hg] Hu Davis [facility] 10-17-2023 08:12-0400 Heart rate 75 /min Hu Davis [facility] 10-17-2023 08:12-0400 Mean blood pressure 94 mm[Hg] Hu Davis [facility] 10-17-2023 08:12-0400 Respiratory rate 14 /min Hu Davis [facility] 10-17-2023 08:12-0400 Systolic blood pressure 131 mm[Hg] Hu Davis [facility] 09-28-2023 14:56-0500 Body temperature 98.6 [degF] [facility] 09-28-2023 14:56-0500 Diastolic blood pressure 85 mm[Hg] [facility] 09-28-2023 14:56-0500 Heart rate 107 /min [facility] 09-28-2023 14:56-0500 Respiratory rate 18 /min [facility] 09-28-2023 14:56-0500 SaO2% (BldA) [Mass fraction] 100 % [facility] 09-28-2023 14:56-0500 Systolic blood pressure 138 mm[Hg] [facility] 09-24-2023 13:26-0500 Body height 162.6 cm Alfredo Yancey i, MD Work Phone: [facility] 09-24-2023 13:26-0500 Body weight 115 kg Alfredo Yancey i, MD Work Phone: [facility] 09-24-2023 13:26-0500 Diastolic blood pressure 84 mm[Hg] Alfredo Cruz MD Work Phone: [facility] 09-24-2023 13:26-0500 Heart rate 84 /min Alfredo Yancey i, MD Work Phone: [facility] 09-24-2023 13:26-0500 SaO2% (BldA) [Mass fraction] 99 % Alfredo Cruz MD Work Phone: [facility] 09-24-2023 13:26-0500 Systolic blood pressure 145 mm[Hg] Alfredo Cruz MD Work Phone: [facility] 09-19-2023 10:33-0500 Body height 162.56 cm PA-C Lenora Santos Work Phone: [facility] 09-19-2023 10:07-0500 Body mass index (BMI) [Ratio] 45.8 kg/m2 PA-C Lenora Santos Work Phone: [facility] 09-19-2023 10:07-0500 Body weight 121.1 kg PA-C Lenora Santos Work Phone: [facility] 09-12-2023 13:27-0500 Blood Pressure Location Forest Gonzalez [facility] 09-12-2023 13:27-0500 Diastolic blood pressure 78 mm[Hg] Forest Gonzalez [facility] 09-12-2023 13:27-0500 Heart rate 77 /min Forest Gonzalez [facility] 09-12-2023 13:27-0500 SaO2% (BldA) [Mass fraction] 99 % Forest Gonzalez [facility] 09-12-2023 13:27-0500 Systolic blood pressure 130 mm[Hg] Forest Gonzalez [facility] 08-12-2023 17:05-0500 Body height 162.56 cm PA-C Lenora Tom Work Phone: [facility] 08-12-2023 17:05-0500 Body temperature 98.2 [degF] PA-C Lenora Tom Work Phone: [facility] 08-12-2023 17:05-0500 Body weight 125.19 kg PA-C Lenora Tom Work Phone: [facility] 08-12-2023 17:05-0500 Diastolic blood pressure 94 mm[Hg] PA-C Lenora Tom Work Phone: [facility] 08-12-2023 17:05-0500 Heart rate 70 /min PA-C Lenora Tom Work Phone: [facility] 08-12-2023 17:05-0500 Respiratory rate 21 /min PA-C Lenora Tom Work Phone: [facility] 08-12-2023 17:05-0500 SaO2% (BldA) [Mass fraction] 100 % PA-C Lenora Tom Work Phone: [facility] 08-12-2023 17:05-0500 Systolic blood pressure 184 mm[Hg] PA-C Lenora Tom Work Phone: [facility] 08-02-2023 13:45-0500 Diastolic blood pressure 74 mm[Hg] Forest Gonzalez [facility] 08-02-2023 13:45-0500 Mean blood pressure 85 mm[Hg] Forest Gonzalez [facility] 08-02-2023 13:45-0500 Systolic blood pressure 108 mm[Hg] Forest Gonzalez [facility] 08-02-2023 13:36-0500 Blood Pressure Location Forest Gonzalez [facility] 08-02-2023 13:36-0500 Diastolic blood pressure 101 mm[Hg] Forest Gonzalez [facility] 08-02-2023 13:36-0500 Heart rate 76 /min Forest Gonzalez [facility] 08-02-2023 13:36-0500 SaO2% (BldA) [Mass fraction] 100 % Forest Gonzalez [facility] 08-02-2023 13:36-0500 Systolic blood pressure 170 mm[Hg] Forest Gonzalez [facility] 06-24-2023 14:30-0500 Body weight 119.3 kg Elly Galicia MD Work Phone: [facility] 06-24-2023 14:30-0500 Diastolic blood pressure 78 mm[Hg] Elly Galicia MD Work Phone: [facility] 06-24-2023 14:30-0500 Heart rate 78 /min Elly Galicia MD Work Phone: [facility] 06-24-2023 14:30-0500 SaO2% (BldA) [Mass fraction] 100 % Elly Galicia MD Work Phone: [facility] 06-24-2023 14:30-0500 Systolic blood pressure 143 mm[Hg] Elly Galicia MD Work Phone: [facility] 05-27-2023 10:40-0400 Body height 162.56 cm Lenora Blades Other [employer] Other 05-27-2023 10:40-0400 Body mass index (BMI) [Ratio] 46.17 kg/m2 Lenora Blades Other [employer] Other 05-27-2023 10:40-0400 Body weight 122.02 kg Lenora Alvarez Other [facility] [employer] Other 03-10-2023 18:05-0400 Diastolic blood pressure 74 mm[Hg] PA-C Lenora Santos Work Phone: [facility] 03-10-2023 18:05-0400 Heart rate 64 /min PA-C Lenora Cervantesmers Work Phone: [facility] 03-10-2023 18:05-0400 SaO2% (BldA) [Mass fraction] 100 % PA-C Lenora Santos Work Phone: [facility] 03-10-2023 18:05-0400 Systolic blood pressure 166 mm[Hg] PA-C Lenora Santos Work Phone: [facility] 03-10-2023 16:38-0400 Respiratory rate 18 /min PA-C Lenora Santos Work Phone: [facility] 03-10-2023 14:41-0400 Body height 161.29 cm PA-C Lenora Santos Work Phone: [facility] 03-10-2023 14:41-0400 Body temperature 98.6 [degF] PA-C Lenora Santos Work Phone: [facility] 03-10-2023 14:41-0400 Body weight 120.5 kg PA-C Lenora Santos Work Phone: [facility] 12-15-2021 17:15-0400 Diastolic blood pressure 67 mm[Hg] James Richards [facility] 12-15-2021 17:15-0400 Heart rate 65 /min James Richards [facility] 12-15-2021 17:15-0400 Mean blood pressure 87 mm[Hg] James Richards [facility] 12-15-2021 17:15-0400 Respiratory rate 26 /min James Pastore [facility] 12-15-2021 17:15-0400 SaO2% (BldA) [Mass fraction] 100 % James Susie [facility] 12-15-2021 17:15-0400 Systolic blood pressure 128 mm[Hg] James Susie [facility] 12-15-2021 16:00-0400 Diastolic blood pressure 68 mm[Hg] James Susie [facility] 12-15-2021 16:00-0400 Mean blood pressure 82 mm[Hg] James Susie [facility] 12-15-2021 16:00-0400 Respiratory rate 11 /min James Pastore [facility] 12-15-2021 16:00-0400 Systolic blood pressure 111 mm[Hg] James Susie [facility] 12-15-2021 15:00-0400 Respiratory rate 12 /min James Susie [facility] 12-15-2021 15:00-0400 Systolic blood pressure 126 mm[Hg] James Susie [facility] 12-15-2021 12:49-0400 gluc 100 mg/dL James Susie [facility] 12-15-2021 12:49-0400 gluc James Pastore [facility] 12-15-2021 12:45-0400 Body temperature 98.06 [degF] James Susie [facility] 12-15-2021 12:45-0400 Heart rate 66 /min James Susie [facility] 12-15-2021 12:45-0400 Respiratory rate 18 /min James Richards [facility] 10-05-2014 15:47-0500 Blood Pressure Location Lenora SANTOS [facility] 10-05-2014 15:47-0500 Blood Pressure Location RAJNI MORA [facility] 10-05-2014 15:47-0500 Body temperature 98.06 [degF] Lenora TOM [facility] 10-05-2014 15:47-0500 BP/Pulse Patient Position Lenora TOM [facility] 10-05-2014 15:47-0500 BP/Pulse Patient Position RAJNI MORA [facility] 10-05-2014 15:47-0500 Diastolic blood pressure 86 mm[Hg] Lenora TOM [facility] 10-05-2014 15:47-0500 Heart rate 72 /min Lenora TOM [facility] 10-05-2014 15:47-0500 Mean blood pressure 105 mm[Hg] Lenora TOM [facility] 10-05-2014 15:47-0500 Respiratory rate 16 /min Lenora TOM [facility] 10-05-2014 15:47-0500 SaO2% (BldA) [Mass fraction] 97 % Lenora TOM [facility] 10-05-2014 15:47-0500 Systolic blood pressure 142 mm[Hg] Lenora TOM [facility] Encounters Encounter Date Encounter Type Care Provider Facility Start: 05-21-2024 End: 05-21-2024 Clinisync Result Encounter Generic External Data Provider [facility] External Department Unsolicited Start: 05-21-2024 End: 05-21-2024 Clinisync Result Encounter Generic External Data Provider [facility] External Department Unsolicited Start: 05-21-2024 End: 05-21-2024 ambulatory PA-Regina Santos Work Phone: [facility] Work Phone: Start: 05-21-2024 End: 05-21-2024 Departed Referred THELMA Santos Work Phone: [facility] Start: 05-19-2024 End: 05-19-2024 ambulatory MEHRAN-Regina Santos Work Phone: [facility] Work Phone: Start: 05-19-2024 End: 05-19-2024 Patient encounter procedure MEHRAN-Regina Santos Work Phone: [facility] Work Phone: Start: 05-18-2024 End: 05-18-2024 Bamboo flowsheet Marge [...] without long- term current use of insulin ([facility]) (Primary Dx) Start: 05-18-2024 End: 05-18-2024 ambulatory MARGE ALMANZA Not Available Start: 05-13-2024 End: 05-13-2024 ambulatory PA-C Lenora Santos Work Phone: [facility] Work Phone: Start: 05-13-2024 End: 05-13-2024 Patient encounter procedure PA-C Lenora Santos Work Phone: [facility] Work Phone: Start: 05-07-2024 End: 05-07-2024 Clinisync Result Encounter Generic External Data Provider [facility] External Department Unsolicited Start: 05-07-2024 End: 05-07-2024 Clinisync Result Encounter Generic External Data Provider [facility] External Department Unsolicited Start: 05-04-2024 End: 05-04-2024 Patient encounter procedure PA-C Lenora Santos Work Phone: [facility] [place] Work Phone: Start: 05-04-2024 End: 05-04-2024 ambulatory PA-C Lenora Santos Work Phone: [facility] Work Phone: Start: 05-04-2024 End: 05-04-2024 ambulatory PA-C Lenora Santos Work Phone: [facility] Work Phone: Start: 05-04-2024 End: 05-04-2024 Patient encounter procedure PA-C Lenora Santos Work Phone: [facility] Work Phone: Start: 04-30-2024 End: 04-30-2024 Patient encounter procedure PA-C Lenora Santos Work Phone: [facility] [place] Work Phone: Start: 04-30-2024 End: 04-30-2024 ambulatory PA-C Lenora J Tom Work Phone: [facility] Work Phone: Start: 04-30-2024 End: 04-30-2024 ambulatory PA-C Lenora Santos Work Phone: [facility] Work Phone: Start: 04-30-2024 End: 04-30-2024 Patient encounter procedure PA-C Lenora Santos Work Phone: [facility] Work Phone: Start: 04-24-2024 End: 04-24-2024 ambulatory PA-C Lenora Santos Work Phone: [facility] Work Phone: Start: 04-24-2024 End: 04-24-2024 Patient encounter procedure PA-C Lenora Santos Work Phone: [facility] Work Phone: Start: 04-16-2024 End: 04-16-2024 ambulatory LENORA SANTOS Not Available Start: 03-30-2024 Non-patient / Non-visit PA-C Lenora Santos Work Phone: [facility] Work Phone: Start: 03-28-2024 End: 03-28-2024 Patient encounter procedure PA-C Lenora Santos Work Phone: [facility] [place] Work Phone: Start: 03-28-2024 End: 03-28-2024 ambulatory PA-C Lenora Santos Work Phone: [facility] Work Phone: Start: 03-24-2024 End: 03-24-2024 ambulatory PA-C Lenora Santos Work Phone: [facility] Work Phone: Start: 03-24-2024 End: 03-24-2024 Patient encounter procedure THELMA Santos Work Phone: [facility] Work Phone: Start: 03-18-2024 End: 03-18-2024 ambulatory Tamiko Robert Facility:[facility] Start: 03-18-2024 End: 03-18-2024 Pain Management Tamiko Robert [facility] Start: 03-17-2024 End: 03-17-2024 ambulatory MEHRAN-Regina Santos Work Phone: [facility] Work Phone: Start: 03-17-2024 End: 03-17-2024 Patient encounter procedure THELMA Santos Work Phone: [facility] Work Phone: Start: 03-06-2024 End: 03-06-2024 Patient encounter procedure THELMA Santos Work Phone: [facility] [place] Work Phone: Start: 03-06-2024 End: 03-06-2024 ambulatory MEHRAN-Regina Santos Work Phone: [facility] Work Phone: Start: 03-03-2024 End: 03-03-2024 ambulatory Hu Davis Facility:[facility] Start: 03-03-2024 End: 03-03-2024 Pain Management Hu Davis [facility] Start: 01-29-2024 End: 01-29-2024 ambulatory Tamiko Robert Facility:[facility] Start: 01-29-2024 End: 01-29-2024 Pain Management Tamiko Robert [facility] Start: 12-24-2023 End: 12-24-2023 ambulatory THELMA Santos Work Phone: [facility] Work Phone: Start: 12-24-2023 End: 12-24-2023 Patient encounter procedure THELMA Santos Work Phone: [facility] Work Phone: Start: 12-06-2023 End: 12-06-2023 Admission to same day surgery center THELMA Santos Work Phone: [facility] [place] Work Phone: Start: 12-06-2023 End: 12-06-2023 ambulatory THELMA Santos Work Phone: [facility] Work Phone: Start: 12-05-2023 End: 12-05-2023 ambulatory LENORA SANTOS Not Available Start: 11-11-2023 End: 11-11-2023 ambulatory ALFREDO CRUZ Facility:[facility] Start: 11-11-2023 End: 11-11-2023 Patient encounter procedure Alfredo Cruz MD Work Phone: Endocrinology Comment on above: Class 3 severe obesi ty with serious comorbidity and body mass index (BMI) of 40.0 to 44.9 in adult, unspecified obesity type (HCC) (Primary Dx) Start: 11-07-2023 End: 11-07-2023 ambulatory LENORA SANTOS Not Available Start: 10-30-2023 End: 10-30-2023 ambulatory Hu Davis Facility:[facility] Start: 10-30-2023 End: 10-30-2023 Pain Management Hu Davis [facility] Start: 10-24-2023 End: 10-24-2023 Patient encounter procedure PA-C Lenora Santos Work Phone: [facility] [address] Work Phone: Start: 10-24-2023 End: 10-24-2023 ambulatory PA-C Lenora Santos Work Phone: [facility] Work Phone: Start: 10-18-2023 End: 10-18-2023 ambulatory PA-C Lenora Santos Work Phone: [facility] Work Phone: Start: 10-18-2023 End: 10-18-2023 Patient encounter procedure PA-C Lenora Santos Work Phone: [facility] Work Phone: Start: 10-17-2023 End: 10-17-2023 ambulatory DO Hu Davis Facility:[facility] Start: 10-17-2023 End: 10-17-2023 Pain Management Hu Davis [facility] Start: 10-15-2023 End: 10-16-2023 Pre-admission assessment Lenora SANTOS [facility] Start: 10-04-2023 End: 10-04-2023 ambulatory LENORA SANTOS Not Available Start: 09-30-2023 End: 09-30-2023 ambulatory LENORA SANTOS Not Available Start: 09-28-2023 End: 09-28-2023 Emergency department patient visit Cody Liyah Hannah [facility] Start: 09-25-2023 End: 09-25-2023 ambulatory PA-C Lenora Santos Work Phone: [facility] Work Phone: Comment on above: [employer] Start: 09-25-2023 Non-patient / Non-visit PA-Regina Santos Work Phone: [facility] Work Phone: Start: 09-25-2023 End: 09-25-2023 Patient encounter procedure PA-C Lenora Santos Work Phone: [facility] Work Phone: Start: 09-24-2023 End: 09-24-2023 ambulatory NELI SLATER Facility:[facility] Start: 09-24-2023 End: 09-24-2023 Patient encounter procedure Alfredo Cruz MD Work Phone: Endocrinology Comment on above: Class 3 severe obesi ty with serious comorbidity and body mass index (BMI) of 40.0 to 44.9 in adult, unspecified obesity type (HCC) Start: 09-20-2023 End: 09-20-2023 ambulatory LENORA SANTOS Not Available Start: 09-19-2023 End: 09-19-2023 ambulatory PA-C Lenora Santos Work Phone: [facility] Work Phone: Start: 09-19-2023 End: 09-19-2023 Patient encounter procedure PA-Regina Santos Work Phone: [facility] Work Phone: Start: 09-18-2023 Refill Lenora Ramsey ers PA Work Phone: [facility] Comment on above: Primary insomnia Start: 09-12-2023 End: 09-12-2023 ambulatory XXXX NONE Facility:[facility] Start: 09-12-2023 End: 09-12-2023 Patient encounter procedure Forest Gonzalez [facility] Start: 09-09-2023 Chart abstracting Lenora combs PA Work Phone: [facility] Start: 08-30-2023 End: 08-30-2023 ambulatory Lenora SANTOS Facility:[facility] Start: 08-30-2023 End: 08-30-2023 Patient encounter procedure Lenora SANTOS [facility] Start: 08-15-2023 End: 09-17-2023 Pre-admission assessment Hu Davis [facility] Start: 08-13-2023 End: 08-13-2023 ambulatory LENORA SANTOS Not Available Start: 08-13-2023 End: 08-13-2023 ambulatory Forest Gonzalez Facility:[facility] Start: 08-13-2023 End: 08-13-2023 Patient encounter procedure Forest Gonzalez [facility] Start: 08-12-2023 End: 08-12-2023 Emergency department patient visit THELMA Santos Work Phone: [facility] Work Phone: Start: 08-12-2023 End: 08-12-2023 Emergency department patient visit James Pastore Facility:[facility] Start: 08-09-2023 End: 08-09-2023 ambulatory LENORA SANTOS Not Available Start: 08-02-2023 End: 08-02-2023 ambulatory Lenora SANTOS Facility:[facility] Start: 08-02-2023 End: 08-02-2023 Patient encounter procedure Forest Gonzalez [facility] Start: 06-24-2023 End: 06-25-2023 ambulatory NELI SLATER Facility:[facility] Start: 06-24-2023 End: 06-24-2023 Patient encounter procedure Elly Galicia MD Work Phone: Endocrinology Comment on above: Acquired hypothyroid ism (Primary Dx); Class 3 severe obesity with serious comorbidity and body mass index (BMI) of 40.0 to 44.9 in adult, unspecified obesity type (HCC) Start: 06-21-2023 ambulatory Lenora SANTOS Facil ity:[facility] Start: 05-27-2023 End: 05-27-2023 ambulatory Lenora Alvarez Other [facility] Max Rumpus Other Start: 05-27-2023 Office outpatient ne w 45 minutes Lenora Alvarez [facility] Neurosurgery Start: 05-14-2023 End: 05-14-2023 ambulatory ELLY GALICIA Facility:[facility] Start: 05-06-2023 End: 05-07-2023 [facility]ulatory [facility] Facility:[facility] Start: 04-05-2023 End: 04-05-2023 ambulatory Juan Bennett Facility:[facility] Start: 04-05-2023 End: 04-05-2023 Patient encounter procedure Juan Bennett [facility] Start: 03-10-2023 End: 03-10-2023 Emergency department patient visit THELMA Santos Work Phone: [facility] Work Phone: Start: 01-16-2023 End: 01-16-2023 Patient encounter procedure Lenora SANTOS [facility] Start: 10-10-2022 End: 10-10-2022 Patient encounter procedure Juan Bennett [facility] Start: 03-29-2022 End: 05-01-2022 Pre-admission assessment Jose L TRIPP [facility] Start: 03-28-2022 End: 03-28-2022 Patient encounter procedure RAJNI MORA [facility] Mario Alberto Start: 12-15-2021 End: 12-15-2021 Emergency department patient visit James Richards [facility] Start: 12-14-2021 End: 12-14-2021 Patient encounter procedure Lenora SANTOS [facility] Start: 09-11-2019 End: 09-12-2019 Patient encounter procedure MATTHEW RIVER Facility:[facility] Procedures Date Procedure Procedure Detail Performing Clinician Start: 05-21-2024 ALL CBC WITH AUTO DIFF Generic External Data Provider Start: 05-07-2024 ALL CBC WITH AUTO DIFF Generic External Data Provider Start: 03-03-2024 Epidural injection o f lumbar spine using fluoroscopic guidance Tamiko DearLocal Comment on above: 100% relief left, 70 % relief right Start: 12-06-2023 Needle biopsy PA-C Sheyla Santos Work Phone: Start: 10-30-2023 Injection of nerve r oot of lumbar spine using fluoroscopic guidance Tamiko DearLocal Comment on above: right L5-S1 90% reli ef up until 2 weeks ago Start: 10-24-2023 X-ray of right knee PA- C Lenora Santos Work Phone: Start: 09-25-2023 Ultrasound elastogra phy of liver PA-C Lenora Santos Work Phone: Start: 09-25-2023 Ultrasonography of liver PA-C Lenora Santos Work Phone: Start: 08-30-2023 Mammography Generic Pr ovider Start: 03-10-2023 CT of head without contrast PA-C Lenora Santos Work Phone: Start: 03-10-2023 Plain chest X-ray PA-C Lenora Santos Work Phone: Start: 12-14-2021 Mammography Lenora Scruggs mmers PA Work Phone: Start: 06-22-2020 Arthroscopy of shoulder Lenora SANTOS Start: 12-24-2018 Arthroscopy of knee Corinne kelsey SANTOS Comment on above: right knee Start: 07-22-2017 Laminectomy Lenora SCRUGGS MMERS Comment on above: L4-L5 Start: 07-25-2015 Colonoscopy Lenora Scruggs mmnavneet PA Work Phone: Start: 10-08-2014 left extracorporeal shockwave lithotripsy Lenora SANTOS Start: 10-05-2014 cystoscopy, left retrograde ureteropyelogram, and double-J stent insertion Lenora SANTOS Start: 04-09-2014 robotic-assisted hysterectomy with bilateral salpingectomy Lenora SANTOS Start: 12-30-2009 right foot surgery 3 De kat SANTOS Comment on above: x3 ankle Start: 12-30-2009 right foot surgery 4 Am isabel DearLocal Comment on above: x3 ankle Start: 12-30-2009 right foot surgery 5 Am isabel DearLocal Comment on above: x3 ankle Appendectomy Lenora SANTOS Comment on above: right ovary removed Arthroscopy of shoulder Sheyla raliyah CERVANTESTOM Bilateral tubal ligation Corinne SANTOS Cholecystectomy Lenora SOMM ERS Laboratory test resu lt abnormal Abnormal laboratory test PA-C Lenora Santos Work Phone: Repair of ligament Lenora HOFFMAN Comment on above: right foot - mediall y Plan of Treatment Date Care Activity Detail Author Start: 09-24-2026 Diabetes Screening Diabetes Screenin [facility] Start: 05-18-2026 Glaucoma screening Diabetes: R etinopathy Screening [facility] Start: 05-06-2026 Diabetes Screening Diabetes Screenin [facility] Start: 07-25-2025 Screening for malign ant neoplasm of colon [facility] Start: 05-20-2025 End: 05-20-2025 Patient encounter procedure 05/20/2025 9:00 AM EDT Office Visit [facility] [address] [place] [phone] Marge Almanza MD [address] [place] [address] [facility] Start: 05-04-2025 Urine screening for protein Diabetes: Urine Protein Screening [facility] Start: 08-30-2024 Screening for malign ant neoplasm of breast Mammogram [facility] Start: 08-20-2024 End: 08-20-2024 Patient encounter procedure 08/20/2024 2:00 PM EST Office Visit [facility] [address] [place] [phone] Lenora Santos PA [address] [place] [address] [facility] Start: 08-18-2024 Hemoglobin A1c measurement Diabetes: Hemoglobin A1C [facility] Start: 05-19-2024 End: 05-19-2024 Patient encounter procedure 05/19/2024 8:00 AM EDT Office Visit [facility] [address] [place] [phone] Lenora Santos PA [address] [place] [address] [facility] Start: 05-18-2024 End: 05-18-2024 Patient encounter procedure [facility] Comment on above: Arrived Start: 05-04-2024 [facility] Start: 04-05-2024 Influenza vaccination Influenza Vacc ine (#1) [facility] Start: 12-24-2023 Patient referral [facility] Work Phone: Start: 12-06-2023 [facility] Start: 12-06-2023 CT guided biopsy [facility] Start: 12-06-[address] guided biopsy [facility] Start: 09-25-2023 [facility] Start: 09-25-2023 Actin smooth muscle IgG Ab [Units/volume] in Serum [facility] Start: 09-25-2023 Cefuroxime free [Mass/volume] in Serum or Plasma [facility] Start: 09-25-2023 Ceruloplasmin [Mass/volume] in Serum or Plasma [facility] Start: 09-25-2023 Hepatitis B core ant ibody measurement [facility] Start: 09-25-2023 Hepatitis B virus marshall rface Ab [Presence] in Serum [facility] Start: 09-25-2023 [facility] Start: 09-25-2023 Ultrasonography of liver US liver [facility] Start: 09-25-2023 US Liver [facility] Start: 09-24-2023 End: 12-24-2023 Comprehensive metabolic 2000 panel - Serum or Plasma [facility] Work Phone: Comment on above: Expected: 09/24/2023 , Expires: 12/24/2023 Start: 09-09-2023 End: 09-09-2023 Patient encounter procedure 09/09/2023 8:30 AM EST Office Visit [facility] [address] [place] [phone] Lenora Santos PA [address] [place] [address] [facility] Start: 08-05-2023 Behavioral Health Screening Behavioral Health Screening [facility] Start: 08-05-2023 Depression Assessment Depression Ass essment [facility] Start: 06-24-2023 End: 09-23-2023 Thyrotropin [Units/volume] in Serum or Plasma [facility] Work Phone: Comment on above: Expected: 06/24/2023 , Expires: 09/23/2023 Start: 06-24-2023 End: 09-23-2023 Thyroxine (T4) free [Mass/volume] in Serum or Plasma [facility] Work Phone: Comment on above: Expected: 06/24/2023 , Expires: 09/23/2023 Start: 04-05-2023 Covid-19 Vaccine () Covid-19 Vaccine () [facility] Start: 12-14-2022 Screening for malign ant neoplasm of breast [facility] Start: 08-05-2022 Depression Assessment Depression Ass essment [facility] Start: 05-01-2022 Urine microalbumin profile DTaP,Tdap,Td Vaccine (2 - Td or Tdap) [facility] Start: 2019 Shingrix Vaccine (1 of 2) Joaquin grix Vaccine (1 of 2) [facility] Start: 2014 Cologuard (FIT-DNA) Cologuard (FIT-D NA) [facility] Start: 2014 Colonoscopy Colonoscopy [facility] Start: 2014 Colorectal Cancer Screening Colorectal Cancer Screening [facility] Start: [address] Colonography [facility] Start: 2014 Fecal Occult Blood Fecal Occult Bloo d [facility] Start: 2014 Lipid 1996 panel - S nusrat or Plasma Lipid Screening [facility] Start: 2014 Lipid panel Lipid Screening [facility] Start: 2014 Screening for malign ant neoplasm of colon [facility] Start: 2014 Sigmoidoscopy Sigmoidoscopy [facility] Start: 2009 Mammography Mammogram Screening [facility] Start: 1999 HPV Testing HPV Testing [facility] Start: 1999 Screening for malign ant neoplasm of cervix [facility] Start: 1990 Pap Testing Pap Testing [facility] Start: 1990 Screening for malign ant neoplasm of cervix [facility] Start: 1988 Hepatitis B Vaccine (1 of 3 - 19+ 3-dose series) Hepatitis B Vaccine (1 of 3 - 19+ 3-dose series) [facility] Start: 1987 Annual PCP Team Group Practice Pediatrician gideon Disease Visit Annual PCP Team Chronic Disease Visit [facility] Start: 1987 BP Controlled (<130/80) BP Controlle d (<130/80) [facility] Start: 1987 Hepatitis C Screening Hepatitis C [facility] Start: 1987 Hepatitis C screening Hepatitis C [facility] Start: 1987 HIV Screening HIV Screening [facility] Start: 1987 HIV screening HIV Screening [facility] Start: 1969 Hepatitis B Vaccine (1 of 3 - 3-dose series) Hepatitis B Vaccine (1 of 3 - 3-dose series) [facility] Start: 1969 Screening for malign ant neoplasm of colon [facility] Actin smooth muscle IgG Ab [Units/volume] in Serum [facility] Albumin/Globulin ratio [facility] Alpha 1 antitrypsin [Mass/volume] in Serum or Plasma [facility] Alpha 1 antitrypsin [Mass/volume] in Serum or Plasma [facility] Alpha 1 antitrypsin phenotyping [Identifier] in Serum or Plasma by Immunofixation [facility] Anion gap measurement [facility] Cefuroxime free [Mass/volume] in Serum or Plasma [facility] Ceruloplasmin [Mass/volume] in Serum or Plasma [facility] CT guided biopsy [facility] Globulin [Mass/volum e] in Serum [facility] Glucose [Mass/volume ] in Serum or Plasma --2 hours post 75 g glucose PO [facility] Hepatic function panel [facility] Hepatitis B core ant ibody measurement [facility] Hepatitis B virus marshall rface Ab [Presence] in Serum [facility] Hepatitis B virus marshall rface Ag [Presence] in Serum or Plasma by Immunoassay [facility] Hepatitis C virus Ig G Ab [Presence] in Serum or Plasma by Immunoassay [facility] Microalbumin/Creatin ine [Mass Ratio] in Urine [facility] Patient Education [facility] Work Phone: Patient referral [facility] Work Phone: [facility] Immunizations Immunization Date Immunization Notes Care Provider Fa cility 04-30-2023 influenza, injectabl e, quadrivalent, contains preservative Lenora Santos PA Work Phone: [facility] 04-30-2023 influenza virus vaccine, unspecified formulation Generic Provider [facility] 05-14-2022 influenza, injectabl e, quadrivalent, preservative free Lenora Santos PA Work Phone: [facility] 05-14-2022 Moderna Bivalent Booster Vaccination Lenora Santos PA Work Phone: [facility] 07-05-2021 Moderna SARS-CoV-2 Booster Vaccination Lenora Santos PA Work Phone: [facility] 06-08-2021 influenza, injectabl e, quadrivalent, contains preservative Lenora Santos PA Work Phone: [facility] 11-18-2020 COVID-19, mRNA, LNP- S, PF, 30 mcg/0.3 mL dose; Translations: [Pfizer-BioNTech COVID-19 Vaccine] Lenora SANTOS [facility] Comment on above: Reason for Medicatio n: Prophylaxis 10-21-2020 COVID-19, mRNA, LNP- S, PF, 30 mcg/0.3 mL dose; Translations: [Pfizer-BioNTech COVID-19 Vaccine] Lenora SANTOS [facility] Comment on above: Reason for Medicatio n: Prophylaxis 05-13-2020 influenza, injectabl e, quadrivalent, preservative free Lenora Santos PA Work Phone: [facility] 05-13-2020 Seasonal, quadrivale nt, recombinant, injectable influenza vaccine, preservative free Lenora Tom PA Work Phone: [facility] 04-30-2019 influenza virus vaccine, unspecified formulation Lenora TOM [facility] 04-30-2019 influenza, injectabl e, quadrivalent, preservative free Lenora Tom PA Work Phone: [facility] 05-20-2018 Influenza, injectabl e, Madin Carmen Canine Kidney, preservative free, quadrivalent Lenora Tom PA Work Phone: [facility] 05-05-2018 influenza, injectabl e, quadrivalent, preservative free Lenora Tom PA Work Phone: [facility] 06-07-2017 influenza, injectabl e, quadrivalent, preservative free Lenora Tom PA Work Phone: [facility] 05-29-2016 influenza, injectabl e, quadrivalent, preservative free Lenora Tom PA Work Phone: [facility] 05-26-2015 influenza, seasonal, injectable Lenora Tom PA Work Phone: [facility] 05-01-2012 tetanus toxoid, redu meng diphtheria toxoid, and acellular pertussis vaccine, adsorbed Lenora TOM [facility] Comment on above: Early/Late Reason: N ursing Judgment 07-21-2009 novel [id number], preservative-free, injectable Lenora Tom PA Work Phone: [facility] Healthcare Payers Date Payer Category Payer [facility] [id number] 2023 Unknown [id number]. [id number] 2023 Unknown [id number] 2023 Private Health Insurance [id number] 2023 Self-pay [id number] 2022 Private Health Insurance [id number] 2022 Private Health Insurance [id number] 1969 Unknown [id number] 2.840.1.176250.3.579.2. 593 1969 Unknown [id number] 2.16840.1.921594.3.579.2. 1969 Unknown [id number] 2.16840.1.474012.3.579.2. 72 1969 Unknown [id number] 2.16.840.1.383741.3.579.2. 72 1969 Unknown [id number] 2.16840.1.368284.3.579.2. 72 1969 Unknown [id number] 2.16.840.1.673272.3.579.2. 727 1969 Unknown [id number] 2.16.840.1.009226.3.579.2. 72 1969 Unknown [id number] 2.16.840.1.959152.3.579.2. 1969 Unknown [id number] 2.16.840.1.921554.3.579.2 1969 Unknown [id number] 2.16.840.1.875672.3.579.2 1969 Unknown [id number] 2.16.840.1.834097.3.579.2 1969 Unknown [id number] 2.16.840.1.426814.3.579.2 1969 Unknown [id number] 2.16.840.1.888674.3.579.2 1969 Unknown [id number] 2.16840.1.476653.3.579.2 1969 Unknown [id number] 2.16.840.1.891978.3.579.2. 1258 1969 Unknown [id number] 2.16.840.1.149035.3.579.2. 1258 1969 Unknown [id number] 2.16.840.1.758245.3.579.2. 1258 1969 Unknown [id number] 2.16.840.1.119388.3.579.2. 1258 1969 Unknown [id number] 2.16.840.1.235182.3.579.2. 1258 1969 Unknown [id number] 2.16.840.1.109008.3.579.2. 1258 1969 Unknown [id number] 2.16.840.1.799660.3.579.2. 1258 1969 Unknown [id number] 2.16.840.1.862960.3.579.2. 1258 1969 Unknown [id number] 2.16.840.1.098318.3.579.2. 1259 1969 Unknown [id number] 2.16.840.1.152270.3.579.2. 1259 1959 Unknown [id number] Unknown [facility] [id number] Unknown [id number] 2.16.840.1.392690.3.579.2. 531 Unknown [id number] 2.16.840.1.933444.3.579.2. 531 Unknown [id number] 2.16.840.1.149227.3.579.2. 531 Unknown [id number] 2.16.840.1.690639.3.579.2. 531 Unknown [id number] 2.16.840.1.322735.3.579.2. 531 Unknown [id number] 2.16.840.1.546629.3.579.2. 531 Unknown [id number] 2.16.840.1.066564.3.579.2. 531 Unknown [id number] 2.16.840.1.118537.3.579.2. 531 Unknown [id number] 2.16.840.1.748936.3.579.2. 531 Unknown [id number] 2.16.840.1.405151.3.579.2. 531 Social History Date Type Detail Facility Start: 09-08-2019 End: 03-17-2024 Tobacco smoking status Never smoked tobacco (finding) [facility] Tobacco smoking status Never [facility] Start: 06-24-2023 End: 04-14-2024 Sex Assigned At Female [facility] Start: 1970 Sex Assigned At Female [facility] Start: 06-24-2023 End: 11-11-2023 Alcohol intake Current drinker of alcohol (finding) [facility] Start: 06-24-2023 End: 04-14-2024 History of Social function [facility] Start: 04-12-2011 Alcohol Comment 4-5x/year [facility] Start: 1970 Sex Assigned At Not on file [facility] Start: 01-04-2023 Tobacco use [...] Assessment Result Facility 03-18-2024 Functional Status N/A [facility] 03-06-2024 Fibrosis score Enhanced Liver Fibrosis Score 10.94 [facility] Comment on above: ELF(TM) Score Interp [...] STELLAR trials. J Hepatol. 2020 Feb;73(1):26-39.Performed at: [address] [id number] Director: Leyla Britt MD, Phone: [phone] 01-29-2024 Functional Status N/A [facility] 10-30-2023 Functional Status N/A [facility] 10-17-2023 Functional Status N/A [facility] 09-28-2023 Functional Status N/A [facility] 09-12-2023 Functional Status No [facility] 08-02-2023 Functional Status No [facility] 03-28-2022 Functional Status N/A [facility] Mario Alberto Clinical Notes 12-15-2021 to 05-19-2024 Note Date & Type Note Facility 05-19-2024 Evaluation note Authored May 19, 2024 1:32pm 53-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 Patient started Resmetirom on 01/18/2024. She denies any side effects. -Continue Resmiterom. -Will arrange for FibroScan and ELF 6 months after initiation of Resmetirom Author Tank Xavier [facility] Authored March 17, 2024 10 :13am [...] effects. 3. Prediabetes with recent A1c of 6.4-agpfb-geyb treatment with long-term healthy lifestyle change, decreased [...] sleep hygiene and weight loss also. 7. HMGO-hbwzyb-insxea. Sent here by GI. 8. Kriss's thyroiditis [...] Our exercise program was recommended with our topstitcher zigzag/obesity exercise group. Handout given. Our free weekly [...] and benefits of prescribed meds discussed. Initial qugx-bx-tuum interview/evaluation. The patient was counseled in detail on the options for weight loss in an individual setting. 69 minutes was spent caring for the patient, counseling/educating patient on the options for the treatment of obesity and related healthcare issues. The program's treatment goals were reviewed with the patient. Each aspect of the program was discussed with the patient. Author Tank Xavier [facility] Authored April 24, 2024 11:27am Highest [...] back. 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 She has a new diagnosis of [...] test of 242 with recent A1c of 6.9-owmnb-pxlb treatment with long-term healthy lifestyle change, decreased [...] sleep hygiene and weight loss also. 7. XQOF-rhbyox-oocfvz. Sent here by GI. 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 9. Kidney stones-will try to avoid Topamax. Increase water intake. Stop Pepsi. Follow up with me in 6 weeks. New labs needed: Up-to-date. She will need an A1c again in 3 months after following the program. She needs at least yearly metabolic blood work. [facility] Work Phone: 1(865) 236-659410-14-2024 History of Present illness Narrative* BRITTANY Hernandez - 05/18/2024 8:45 AM EDT Images from the original note were not included. Assessment/Plan * Marge Almanza MD - 05/18/2024 8:45 AM EDT Assessment/Plan Diabetes Mellitus without sign of diabetic retinopathy on dilated retinal examination today OU: Discussed the pathophysiology of diabetes and its effect on the eye. Stressed the importance of strong glucose control. Advised of importance of at least yearly dilated examinations, but to contact us immediately for any problems or concerns. documented in [facility] [id number] Evaluation + Plan note Extracted from: Title:Pain Managment Follow up Author:Tamiko Rollins [...] anything from our services. DIMPLE score: 40%. [facility] 08-14-2024 NoteConsultation Note Patient: DEJAH [...] Problems Lumbar disc herniation / SNOMED CT 767351209 / Confirmed L4-5 fusion Allergic rhinitis, seasonal / SNOMED CT 027062606 / Confirmed H/O: HTN (hypertension) / SNOMED CT 043198351 / Confirmed Depression / SNOMED CT 639475789 / Confirmed Fatty liver / SNOMED CT 429076704 / Confirmed Acne rosacea / SNOMED CT 5874690101 / Confirmed Osteochondritis dissecans / SNOMED CT 924196299 / Confirmed Class 3 severe obesity with body mass index (BMI) of 40.0 to 44.9 in adult / SNOMED CT 5964599424 /Confirmed Non-tobacco user / SNOMED CT 055983413 / Confirmed Influenza vaccination up to date / SNOMED CT 453453158 / Confirmed Urine frequency / SNOMED CT 489560389 / Confirmed Kidney stones / SNOMED CT 838568157 / Confirmed Frequent UTI / SNOMED CT 453395161 / Confirmed Resolved: DVT / SNOMED CT 360427474 Resolved: Kidney stones / SNOMED CT [id number] Objective Vital Signs 03/18/2024 8:17 EDT Peripheral [...] limited range of motion Integumentary: Warm, Dry, Crawford. Neurologic: Alert, Oriented. Psychiatric: Cooperative, Appropriate mood [...] are maintained. Intraosseous hemangio (more content not included)...[facility]Result Comment: Electronically Signed By: Tamiko Robert PA-C\.br\Date and Time Signed: 03/18/24 08:39 [id number] Evaluation note* Author Tank Xavier [facility] Authored March 17, 2024 10 :13am [...] effects. 3. Prediabetes with recent A1c of 6.2-irahn-rzqz treatment with long-term healthy lifestyle change, decreased [...] sleep hygiene and weight loss also. 7. TYAC-czpslq-jdulyg. Sent here by GI. 8. Kriss's thyroiditis [...] Our exercise program was recommended with our topstitcher zigzag/obesity exercise group. Handout given. Our free weekly [...] and benefits of prescribed meds discussed. Initial dxml-sa-vsjt interview/evaluation. The patient was counseled in detail on the options for weight loss in an individual setting. 69 minutes was spent caring for the patient, counseling/educating patient on the options for the treatment of obesity and related healthcare issues. The program's treatment goals were reviewed with the patient. Each aspect of the program was discussed with the patient. [facility] Work Phone: 1(858) 514-511908-13-2024 Evaluation note* Author Tank Xavier [facility] Authored March 17, 2024 10 :13am [...] here by her liver specialist due to [facility] S3/F3/F4 FibroScan and biopsy- proven steatosis with [...] effects. 3. Prediabetes with recent A1c of 6.0-qswgz-nxqo treatment with long-term healthy lifestyle change, decreased [...] sleep hygiene and weight loss also. 7. CEKA-kzowgm-lqlixy. Sent here by GI. 8. Kriss's thyroiditis [...] Our exercise program was recommended with our topstitcher zigzag/obesity exercise group. Handout given. Our free weekly [...] and benefits of prescribed meds discussed. Initial laks-qk-wuzb interview/evaluation. The patient was counseled in detail on the options for weight loss in an individual setting. 69 minutes was spent caring for the patient, counseling/educating patient on the options for the treatment of obesity and related healthcare issues. The program's treatment goals were reviewed with the patient. Each aspect of the program was discussed with the patient. Author Sofiya Becerraon [facility] Authored April 24, 2024 9:59am Highest [...] effects. 3. Prediabetes with recent A1c of 6.2-nryns-vaop treatment with long-term healthy lifestyle change, decreased [...] sleep hygiene and weight loss also. 7. YKOL-ryvotz-pgwlhe. Sent here by GI. 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 9. Kidney stones-will try to avoid Topamax. Increase water intake. Stop Pepsi. Follow up with me in 6 weeks. New labs needed: Up-to-date except for going to do a 2-hour glucose tolerance test off metformin. [facility] Work Phone: 1([phone]) 191-979008-13-2024 Evaluation note* Author Tank Xavier [facility] Authored March 17, 2024 10 :13am [...] effects. 3. Prediabetes with recent A1c of 6.2-lafon-wwuy treatment with long-term healthy lifestyle change, decreased [...] sleep hygiene and weight loss also. 7. RJOU-xmrwai-ouovlp. Sent here by GI. 8. Kriss's thyroiditis [...] Our exercise program was recommended with our topstitcher zigzag/obesity exercise group. Handout given. Our free weekly [...] and benefits of prescribed meds discussed. Initial pqqc-ka-hiiw interview/evaluation. The patient was counseled in detail on the options for weight loss in an individual setting. 69 minutes was spent caring for the patient, counseling/educating patient on the options for the treatment of obesity and related healthcare issues. The program's treatment goals were reviewed with the patient. Each aspect of the program was discussed with the patient. Author Tank Xavier [facility] Authored April 24, 2024 11:27am Highest [...] back. 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 She has a new diagnosis of [...] test of 242 with recent A1c of 6.2-vzqhp-yybw treatment with long-term healthy lifestyle change, decreased [...] sleep hygiene and weight loss also. 7. PJLS-udienu-svadvb. Sent here by GI. 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 9. Kidney stones-will try to avoid Topamax. Increase water intake. Stop Pepsi. Follow up with me in 6 weeks. New labs needed: Up-to-date. She will need an A1c again in 3 months after following the program. She needs at least yearly metabolic blood work. [facility] Work Phone: 1([phone]) 380-292507-30-2024 NoteOperative Report Diagnosis: M54.16, lumbar radiculopathy Procedure: [...] and agrees to comply to currently prescribed/recommended therapies.[facility] Comment on above:Result Comment: Electronically Signed By: Hu Davis DO\.br\Date and Time Signed: 03/03/24 14:58 [id number] Evaluation + Plan note Extracted from: Title:Bilateral [...] Date:03/18/2024 08:15:00 AM Scheduled Provider:Tamiko Robert PA-C Location[facility] Appointment Type:Pain Management - Follow Up (FT) [facility] 06-26-2024 Evaluation + Plan noteExtracted [...] clinic sooner if necessary. DIMPLE score: 42%. [facility]05-21-2024 Evaluation note* Author [facility] Authored December 24, 2023 1:52p [...] Resmetirom and follow-up with insurance regarding approval [facility] Work Phone: 1(337) 606-411105-21-2024 Evaluation note* Author Kamilah Ward [facility] Authored December 24, 2023 1:52p m [...] with insurance regarding approval Author Sofiya Jacobson [facility] Authored March 17, 2024 9: 11am [...] Our exercise program was recommended with our topstitcher zigzag/obesity exercise group. Handout given. Our free weekly [...] and benefits of prescribed meds discussed. Initial zpyn-ca-vhkl interview/evaluation. The patient was counseled in detail on the options for weight loss in an individual setting. [ ] minutes was spent caring for the patient, counseling/educating patient on the options for the treatment of obesity and related healthcare issues. The program's treatment goals were reviewed with the patient. Each aspect of the program was discussed with the patient. [facility] Work Phone: 1(160) 298-374704-08-2024 NoteHNO ID: [id number] Author: ALFREDO CRUZ MD Service: ? Author [...] recently diagnosed with liver cirrhosis and her correctional facility psychiatrist and rheumatology both recommended to consider bariatric [...] for considering bariatric (weight loss) surgery at [facility] is to watch the online seminar on the following website. Registration to the weight loss program will also be done online. [email or web address] Alternatively, to schedule appointment, please call Order Specific Question: Have you discussed weight management with your patient? Answer: Yes Order Specific Question: Are you requesting assessment for possible Bariatric Surgery for your patient? Answer: Yes Order Specific Question: Does consulting provider have [facility] Epic access? Answer: Yes Follow up PRN Signed: Alfredo Cruz MD Endocrinology and Metabolism [place] [facility] History of Present illness Narrative* Alfredo Cruz [...] recently diagnosed with liver cirrhosis and her correctional facility psychiatrist and rheumatology both recommended to consider bariatric [...] (Bmi) of 40.0 to 44.9 in Adult ([facility]) Essential Hypertension Kidney Stones Sleep Apnea in [...] for considering bariatric (weight loss) surgery at [facility] is to watch the online seminar on the following website. Registration to the weight loss program will also be done online. [email or web address] Alternatively, to schedule appointment, please call Order Specific Question: Have you discussed weight management with your patient? Answer: Yes Order Specific Question: Are you requesting assessment for possible Bariatric Surgery for your patient? Answer: Yes Order Specific Question: Does consulting provider have [facility] Epic access? Answer: Yes Follow up PRN Signed: Alfredo Cruz MD Endocrinology and Metabolism [place] [facility] documented in this encounterTri[facility] Instructions* Patient Instructions* Alfredo Cruz MD - 11/11/2023 9:20 AM EDT Images from the original note were not included. BARIATRIC REFERRAL The first step for considering bariatric (weight loss) surgery at [facility] is to watch the online seminar on the following website. Registration to the weight loss program will also be done online. [email or web address] Links: https://pages.[email or web address]-[email or web address]-ukpc-program.html?_gl=1*1ly7e l6*_ga*VgIfPbM9MNDvR g4dRiP0Vst0ODm9*_ga_HWJ092SPKP*KTkyZJE3DpJ4UP4jAqYeKQnwZXD4GxJ2CC2lUsEqKW.. https://www.exemplo-portal2.net/pp_l318/JeryXfkblUlqXcwp393.asp?V=2175_Bariatric s_Full_Show_FINAL.mp4 Bariatric Service Information Session Registration: https://www.exemplo-portal2.net/pp_l318/IevblerNzpzhqCpbbqyahpthy913.asp?_ga=1.2 [email or web address] 399708041&_gl=1*7nw8nx7*_ga*PmEwAxP5ALRtCw6eYmT1Erl6FBs1*_ga_HWJ092SPKP*MTcwNDM3 WlC4DE9wSeEfSDdgZOT9GiQ7QZ3wLhIgSX.. Alternatively, to schedule appointment, please call Link: [email or web address]- kcx4775-ygw.ashx?la=en documented in this encounterTri[facility]03-27-20[facility] Evaluation + Plan note Extracted from: [...] Date:12/19/2023 03:15:00 PM Scheduled Provider:Hu Davis DO Location[facility] Appointment Type:Pain Management - Follow Up (FT) [facility]03-27-2024 Note [id number]#[place] 10-30-2023 NoteDiagnosis: M54.16, lumbar radiculopathy Procedure: Right [...] and agrees to comply to currently prescribed/recommended therapies.[facility] Comment on above:Result Comment: Electronically Signed By: Hu Davis DO\.br\Date and Time Signed: 10/30/23 11:29 [id number] Evaluation + Plan note Extracted from: Title:chronic [...] for this as well as 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 [facility]03-12-2024 NotePt cancelled PT evaluation in the remind system today. Chart was prepped for this evaluation.[facility]02-24-2024 Hospital Discharge instructions Patient Education 09/28/2023 [...] managed at home with rest, fluids, and fyqd-zke-xrfygff medicines. Serious symptoms may be treated in [...] water are not available, use alcohol-based hand cheese blender. Make sure that all people in your [...] managed at home with rest, fluids, and biay-qur-ypwdazc medicines. This information is not intended to replace advice given to you by your health care provider. Make sure you discuss any questions you have with your health care provider. Document Revised: 07/12/2022 Document Reviewed: 07/12/2022 [employer] Patient Education 2022 Udemy. Follow Up Care 09/28/2023 14:45:50 With:TOM RENEE, RADHA Gaxiola Address: [address] [place] [address] When:10/01/[address] [facility]02-24-2024 NoteInfectious Disease COVID-19 COVID-19, or [...] managed at home with rest, fluids, and egjg-cwc-ilgoxdj medicines. ? Serious symptoms may be treated [...] condition. ? You should (more content not included)...[facility]02-24-2024 Evaluation + Plan noteExtracted from: Title:ED Note Author:Eric RENEE, Lara Henry ate:09/28/23 1. COVID (U07.1: COVID-19) Orders: ketorolac, 30 mg = 1 mL, Injection, IntraMuscular, Once, Stop date 09/28/23 15:36:00 EST, STAT, Start date 09/28/23 15:36:00 EST, 09/28/23 15:36:00 EST Future Appointments Appointment Date:10/17/2023 08:30:00 AM Scheduled Provider:Hu Davis DO Location[facility] Appointment Type:Pain Management - New () [facility]02-20-2024 NoteHNO ID: [id number] Author: ALFREDO CRUZ MD Service: ? 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 You are a resident of the [facility] or [place] You are 18 years of age or [...] a valid patient HIPAA authorization. Subject to [employer] s ( [employer] ) right to terminate, rescind,revoke, or amend Card eligibility criteria and/or Card terms and conditions which may occur at [employer] s sole discretion, without notice, and for [...] a valid patient HIPAA authorization. Subject to [employer] s right to terminate, rescind, revoke, or amend Card eligibility criteria and/or Card terms and conditions which may occur at [employer] s sole discretion, without notice, and for any reason, Card expires and savings end on 08/04/2024 Video Instructions for Injecting Zepbound: https://www.[facility].com/watch?v=mT5TzRU6Ujp Link to Scalehouse Attendant Website https://www.MuseStorm/ Savings card: https://www.MuseStorm/coverage-savings Medication Guide: https://www.MuseStorm/lcjo-gy-xsibmzgz Written pen instructions: https://www.MuseStorm/how-to-use Tirzepatide: Patient drug information What is Zepbound? [...] under 18 years of age. Check out [employer].PercuVision for savings coupon and more information regarding [...] fat or fatty foods documented in this encounterTrihealth [facility]02-20-[facility]24 History of Present illness Narrative* Alfredo Cruz MD - 09/24/2023 1:32 PM EST Images from the original note were not included. 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 -- Discussed basic exercise recommendations, the role of exercise on weight loss and maintenance. Discussed the combination of aerobic and resistance exercise. -- Most patients benefit from a personalized exercise program. Will refer to endocrine topstitcher zigzag -- Recommend gradual increase in exercise. Goal [...] 1x/week, food journals / trackers (Food log, Trubatesness Pal), activity journals / trackers (Aquaporin watch, [employer], [place]. com. cn vivofit, Striiv). I will see her back [...] type (HCC) E66.01 Z68.41 Alfredo Cruz MD [facility] Endocrinology and Metabolism [place] - [facility] [phone] Medical Decision Making: Problems: Moderate: 1+ chronic illnesses with change Data: Unique source(s) for external note(s) reviewed: 1 Unique test result(s) reviewed: 3+ Unique test(s) ordered: 3+ Risk: Moderate: Drug management Medical Decision Making Level: 4 - Moderate documented in this encounterTrihealth [facility]02-14-2024 Telephone encounter Note * Telephone Encounter - MEHRAN Leggett - 09/18/2023 3:45 PM EST completed [id number] Miscellaneous Notes* Telephone Encounter - MEHRAN Leggett - 09/18/2023 3:45 PM EST completed documented in this encounterEllett Memorial [id number] NoteEchocardiology Procedure Exam Date/Time Accession # Ordering Echo Transthoracic 08/13/2023 09:46 EST [id number] Carlos ARCOS, Forest Jung CPT code 20875 [id number] Reason for Exam (Echo Transthoracic Complete) Abnormal ECG R94.31;Other (please specify) Report Version: 1 Study ID: [id number] [facility] [address] [place] [address] Adult Echocardiogram Report Name: DEJAH DYKES Study Date: 08/13/2023, 9: 11 AM Patient Location: [facility] : 1970 (MM/DD/YYYY) Gender: Female Age: 53 [...] Signed by: Forest Gonzalez MD Transcribed by: [facility] Technologist: [facility]11-20-2023 Note HNO ID: [id number] Author: Elly Galicia MD Service: ? Author [...] - Biotin- none - Amiodarone- none - Gracemont- none - Head/neck radiation- none Interval history: [...] - 30 mmol/L 26 (more content not included)...[facility] 06-24-2023 Instructions* Patient Instructions* Elly Galicia MD - 06/24/2023 3:08 PM EST - Lab recheck today, will let you know if we need to change the dose - Weight Management consultation documented in this encounterTrihealth [facility]11-20-2023 History of Present illness Narrative* Elly [...] - Biotin- none - Amiodarone- none - Gracemont- none - Head/neck radiation- none Interval history: [...] high (L): Data is abnormally low THYROID [facility] 02/01/2023 Component TSH Component 02/01/2023 TSH 5.95 [...] 12/23/2023). Elly Galicia MD documented in this encounterTrihealth Good Sam[facility]10-23-2023 Evaluation note* Encounter Date Diagnosis Assessment Notes Treatment Notes Treatment Clinical Notes May, Lumbar back pain (ICD-10 - M54.50) [employer] Other 10-02-2023 NoteHNO ID: [id number] Author: Elly Galicia MD Service: ? Author [...] - Biotin- none - Amiodarone- none - Gracemont- none - Head/neck radiation- none I have [...] or stare. No scleral (more content not included)...[facility]09-01-2023 NoteHistory of Present Illness Here for evaluation [...] Donald ARCOS, Juan Hodge, PUL, [place] [address] [facility] [place] [address]- Additional Instructions: after his testing [...] 04/30/2019 Recorded diphtheria/pertussis, camelia (more content not included)...[facility]:Result Comment: Electronically Signed By: Donald ARCOS, Juan Hodge\.br\Date and Time Signed: 04/05/23 10:31 EDTOther Comment: Put under wrong [id number] Hospital Discharge instructions Follow Up Care 03/13/2023 13:01:01 With:Juan Bennett MD, PUL, [place] Address: [address] [place] [address] [place] [address]- When:[address] [facility]08-24-2022 Evaluation + Plan note Diagnostic Tests Pending * UTI ([facility]) 03/28/22 [facility] 08-24-2022 Hospital Discharge instructions Patient Education 03/28/2022 10:11:51 Kidney Stones, Fwbe-kz-Sysx Kidney Stones Kidney stones are rock-like masses [...] Follow these instructions at home: Medicines Take dkkm-vtn-kgtysnv and prescription medicines only as told by [...] Document Reviewed: 12/08/2019 Elsevier Patient Education 2019 Udemy. [facility] Mario Alberto 05-13-2022 Hospital Discharge instructions Patient Education 12/15/2021 17:22:14 Paresthesia, Fkai-yl-Ecjg Paresthesia Paresthesia is a burning or prickling [...] fried or sweet foods. General instructions Take dxvg-enr-vdjbpic and prescription medicines only as told by [...] 2009 Document Revised: 08/17/2019 Document Reviewed: 07/31/2018 [employer] Patient Education 2020 Udemy. 12/15/2021 17:22:14 Spondylolysis Spondylolysis Spondylolysis is a [...] Follow these instructions at home: Medicines Take dqwl-oaj-ryumxcb and prescription medicines only as told by your health care provider. Ask your health care provider if the medicine prescribed to you: ?Requires you to avoid driving or using heavy machinery. ?Can cause constipation. You may need to take these actions to prevent or treat constipation: ?Drink enough fluid to keep your urine pale yellow. ?Take rctv-lmv-djvblxc or prescription medicines. ?Eat foods that are [...] 07/22/2006 Document Revised: 11/12/2019 Document Reviewed: 02/24/2019 [employer] Patient Education 2020 Udemy. 12/15/2021 17:22:14 Hypokalemia Hypokalemia Hypokalemia means that [...] hospital. Follow these instructions at home: Take dycv-dxv-fdvlfsa and prescription medicines only as told by [...] cantaloupe, kiwi, oranges, tomatoes, asparagus, and potatoes. ?[place] juice. ?Tomato juice. ?Red meats. ?Yogurt. Keep [...] 07/22/2006 Document Revised: 03/04/2019 Document Reviewed: 03/04/2019 [employer] Patient Education 2020 Udemy. Follow Up Care 12/15/2021 12:44:44 With:Lenora SANTOS Address: [address] [place], [place] [id number] [facility] (1) When:12/18/2021 16:02:[address] [facility] [address]Reason for visit Narrative* Chief Complaint follow up liver biop sy k75.[address] Ward[facility] Reason for Visit Fatty liver Metabolic dysfunction-associated steatohepatitis (MASH) [facility] Work Phone: Chisn complaint+Reason for visit Narrative* Chief Complaint k75.[address] Ward[facility] Reason for Visit BMI 40.0-44.9, adult Hypertension Hypothyroidism Metabolic dysfunction-associated steatohepatitis (MASH) Pre-diabetes Sleep apnea [facility] Work Phone: chief complaint+Reason for visit Narrative* Chief Complaint k75.[address] Brigitte Wagoner r73. Reason for Visit BMI 40.0-44.9, adult Hypertension Hypothyroidism Metabolic dysfunction-associated steatohepatitis (MASH) Pre-diabetes Sleep apnea [facility] Work Phone: Chijx complaint+Reason for visit Narrative* Chief Complaint k75.[address] Brigitte Wagoner r73. K75.81 Z92.164 Reason for Visit BMI 40.0-44.9, adult Hypertension Hypothyroidism Metabolic dysfunction-associated steatohepatitis (MASH) Pre-diabetes Sleep apnea BMI 40.0-44.9, adult Hypertension Metabolic dysfunction-associated steatohepatitis (MASH) Sleep apnea Type 2 diabetes mellitus [facility] Work Phone: chief complaint+Reason for visit Narrative* Chief Complaint k75.[address] Brigitte Wagoner r73. K75.[address] WM f/u Alf / Current Medication use / Med Check Reason for Visit BMI 40.0-44.9, adult Hypertension Hypothyroidism Metabolic dysfunction-associated steatohepatitis (MASH) Pre-diabetes Sleep apnea BMI 40.0-44.9, adult Hypertension Metabolic dysfunction-associated steatohepatitis (MASH) Sleep apnea Type 2 diabetes mellitus [facility] Work Phone: chief complaint+Reason for visit Narrative* Chief Complaint k75.[address] Brigitte Wagoner r73. K75.[address] WM f/u Alf / Current Medication use / Med Check 3 month follow up Reason for Visit BMI 40.0-44.9, adult Hypertension Hypothyroidism Metabolic dysfunction-associated steatohepatitis (MASH) Pre-diabetes Sleep apnea BMI 40.0-44.9, adult Hypertension Metabolic dysfunction-associated steatohepatitis (MASH) Sleep apnea Type 2 diabetes mellitus Fatty liver Metabolic dysfunction-associated steatohepatitis (MASH) [facility] Work Phone: chief complaint+Reason for visit Narrative* Chief Complaint k75.[address] [facility] r73. 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 + Plan note Future Appointments Appointment Date:06/06/2022 01:00:00 PM Scheduled Provider:RAJNI MORA PA-C Location:[facility] Appointment Type:URO [facility] Future Appointments Appointment Date:09/12/2023 01:30:00 PM Scheduled Provider:Forest Gonzalez MD [facility] Type:Cardiology Follow Up (FT) Future Scheduled Tests Radiology* Echo Transthoracic Complete 08/02/23 * US LE Venous Duplex Bilateral 08/02/[address] [facility] Future Appointments Appointment Date:08/23/2023 07:15:00 AM Scheduled Provider: [facility] Appoint[facility] Type:MA Screen (FT) Appointment Date:09/12/2023 01:30:00 PM Scheduled Provider:Forest Gonzalez MD [facility] Type:Cardiology Follow Up (FT) Future Scheduled Tests Radiology* MA Mamm Screen w/CAD if perf and 3D Gunnar 08/23/[address] [facility] Future Appointments Appointment Date:09/12/2023 01:30:00 PM Scheduled Provider:Forest Gonzalez MD [facility] App[facility] Type:Cardiology Follow Up (FT) Appointment Date:09/16/2023 09:00:00 AM Scheduled Provider:Hu Davis DO Location:[facility] [place] Appointment Type:Pain Management - New (FT) [facility] Future Appointments Appointment Date:09/16/2023 09:00:00 AM Scheduled Provider:Hu Davis DO Location:[facility] [place] Appointment Type:Pain Management - New (FT) [facility] Future Appointments Appointment Date:10/17/2023 08:30:00 AM Scheduled Provider:Hu Davis DO Location:.[facility] Appointment Type:Pain Management - New (FT) [facility] noteNo assessment information available [facility] Work Phone: evaluation note* Diagnosis Acquired hypothyroidism- Primary Unspecified hypothyroidism Class 3 severe obesity with serious comorbidity and body mass index (BMI) of 40.0 to 44.9 in adult, unspecified obesity type (HCC) [facility] [place] [facility] Diagnosis Onset Date Resolution Status Encounter for screening colonoscopy acute Hepatic steatosis acute [facility] Work Phone: evaluation note* Diagnosis Primary insomnia Persistent disorder of initiating or maintaining sleep [facility] [place] [facility] Diagnosis Class 3 severe obesity with serious comorbidity and body mass index (BMI) of 40.0 to 44.9 in adult, unspecified obesity type (HCC) [facility] [place] [facility]* Diagnosis Onset Date Resolution Status Encounter for screening colonoscopy acute Hepatic steatosis acute Hepatic steatosis acute [facility] Work Phone: evaluation note* Diagnosis Class 3 severe obesity with serious comorbidity and body mass index (BMI) of 40.0 to 44.9 in adult, unspecified obesity type (HCC)- Primary documented in this encounter [facility] note* Diagnosis Onset Date Resolution Status Hepatic steatosis acute Fatty liver acute Metabolic dysfunction-associated steatohepatitis (MASH ) acute [facility] Work Phone: evalumuwcg note* Diagnosis Hypokalemia- Primary Hypopotassemia Acquired hypothyroidism [...] shoulder surgery Hospitalization History see [place] [facility] Other Hospital Discharge instructions No data available for this section [facility] Additional Instructions Follow-up with your primary care doctor Return to ED if develop worsening [facility]: Hospital Discharge instructionsAmbulatory Orders* Referral to Weight Management Time Frame: 12/24/23, Location: [facility] Work Phone: Progress note No data available for this section [facility] Summary Purpose Family History No Family History [...] (HCC) Procedures ENDOCRINE MEDICAL WEIGHT MANAGEMENT OFFICE/OUTPATIENT [facility] 60-74 MINUTES Elly Galicia MD [address] [place], [place] [id number] Referral ID Status Reason Start Date Expiration Date Visits Requested Visits Authorized [id number] Pending Review PCP Requested Referral 3 06/23/2024 1 1 Additional Source Comments INFORMATION SOURCE (unrecogn ized section and content) DATE CREATED AUTHOR 09/14/2019 [facility] DATE CREATED AUTHOR AUTHOR'S ORGANIZ ATION 03/28/2022 [facility]ical Specialist DATE CREATED AUTHOR AUTHOR'S ORGANIZ ATION 12/19/2023 [facility] DATE CREATED AUTHOR AUTHOR'S ORGANIZ ATION 03/19/2024 Barreto Coke [facility] DATE CREATED AUTHOR AUTHOR'S ORGANIZ ATION 05/19/2024 [facility] dical Specialists EPIC DATE CREATED AUTHOR AUTHOR'S ORGANIZ ATION 05/25/2024 [facility] ysician Group Care Team (unrecognized sect ion and content) Team Status: Active Member Role Status Dates Lenora Santos PA-C Primary Care Provider Active Team Status: Inactive Member Role Status Dates Lenora Santos PA-C Primary Care Provider Active Regino Metcalf DO Emergency Provider Active Environmental Programs Specialist Relationship Specialty Start Date End Date Neli Slater MD PCP - General Family Medicine 03/19/11 Lenora Santos [place] [address] Referring Family Medicine 03/18/23 Team Status: Inactive Member Role Status Dates Lenora Santos PA-C Primary Care Provider Active Allan Dimas PA-C Emergency Provider Active Environmental Programs Specialist Relationship Specialty Start Date End Date Renetta Chavarria MD [address] [place] [address] PCP - General Family Medicine 01/04/23 Lenora Santos PA [address] [place] [address] Physician Supply Chain Logistics Manager Family Medicine 01/04/23 Team Status: Inactive [...] September 19, 2023 End: September 19, 2023 Environmental Programs Specialist Relationship Specialty Start Date End Date Renetta Chavarria MD [address] [place] [address] PCP - General Family Medicine 01/04/23 Lenora Santos PA [address] [place] [address] Physician Supply Chain Logistics Manager Family Medicine 01/04/23 Environmental Programs Specialist Relationship Specialty Start Date End Date Neli Slater MD PCP - General Family Medicine 03/19/11 Lenora Santos PA-C [address] [place] [address] Referring Family Medicine 03/18/23 Team Status: Active [...] September 25, 2023 End: September 25, 2023 Environmental Programs Specialist Relationship Specialty Start Date End Date Neli Slater MD PCP - General Family Medicine 03/19/11 Lenora Santos PA-C [address] [place] [address] Referring Family Medicine 03/18/23 Team Status: Inactive [...] May 04, 2024 End: May 04, 2024 Environmental Programs Specialist Relationship Specialty Start Date End Date Renetta Chavarria MD [address] [place] [address] PCP - General Family Medicine 01/04/23 Lenora Santos PA [address] [place] [address] Physician Supply Chain Logistics Manager Family Medicine 01/04/23 Team Status: Inactive Member Role Status Dates Lenora Santos PA-C Primary Care Provider Active Start: May 13, 2024 End: May 13, 2024 Tyra Moreland RN Attending Provider Active Start: May 13, 2024 End: May 13, 2024 Tank Xavier MD Active Start: May 13, 2024 End: May 13, 2024 Environmental Programs Specialist Relationship Specialty Start Date End Date Renetta Chavarria MD [address] [place] [address] PCP - General Family Medicine 01/04/23 Lenora Santos PA [address] [place] [address] Physician Supply Chain Logistics Manager Family Medicine 01/04/23 Environmental Programs Specialist Relationship Specialty Start Date End Date Renetta Chavarria MD [address] [place] [address] PCP - General Family Medicine 01/04/23 Lenora Santos PA [address] [place] [address] Physician Supply Chain Logistics Manager [facility] 01/04/23 Team Status: Inactive Member Role Status Dates Lenora Santos PA-C Primary Care Provider Active Start: May 19, 2024 End: May 19, 2024 Kamilah Ward MD Attending Provider Active Start: May 19, 2024 End: May 19, 2024 Environmental Programs Specialist Relationship Specialty Start Date End Date Renetta Chavarria MD [address] [place] [address] PCP - [facility] 01/04/23 Lenora Santso PA [address] [place] [address] Physician [facility] 01/04/23 Team Status: Inactive Member Role Status Dates Lenora Santos PA-C Primary Care Provider Active Start: May 21, 2024 End: May 21, 2024 Koffi García DPM MS Attending Provider Active Start: May 21, 2024 End: May 21, 2024 Goals (unrecognized section and content) Goals [...] (HCC) Procedures ENDOCRINE MEDICAL WEIGHT MANAGEMENT OFFICE/OUTPATIENT [facility] 60-74 MINUTES Elly Galicia MD [address] [place] [address] Referral ID Status Reason Start Date Expiration Date V isits Requested Visits Authorized [id number] Closed PCP Requested Referral 06/24/2023 06/23/2024 1 [...] or prosecute any alcohol or drug abuse patient.[facility] the event this information is protected by the Federal Confidentiality of Alcohol and Drug Abuse Patient Records regulations: The Federal rules restrict any use of the information to criminally investigate or prosecute any alcohol or drug abuse patient.[facility] HospitalIn the event this information is protected by the Federal Confidentiality of Alcohol and Drug Abuse Patient Records regulations: The Federal rules restrict any use of the information to criminally investigate or prosecute any alcohol or drug abuse patient.[facility] HospitalIn the event this information is protected by the Federal Confidentiality of Alcohol and Drug Abuse Patient Records regulations: The Federal rules restrict any use of the information to criminally investigate or prosecute any alcohol or drug abuse patient.[facility] FOR RECORDS PERTAINING TO PATIENTS WHO [...] BE BASED ON THE PRIMARY CLINICAL RECORDS. [facility]. provides no warranty or guarantee of the accuracy or completeness of information in this document.
--- NOTE | 2024-05-29 13:14 | CM.DCFOLLOWU ---
Person spoke with:patient How are you feeling?well How is your pain?tolerable Did you understand your discharge instructions?yes Do you have any questions about your discharge instructions?no Were you given any prescriptions at discharge? yes Were you able to get your prescriptions filled?yes Do you understand how to take your medications as ordered?yes Do you have any questions about your follow up appointment and do you plan to keep your follow up appointment? no questions, had follow up yesterday Is there anything else that you would like to discuss?no Questions/Comments/Concerns/Other:none
== END 2024-05-23 17:19 | disposition home or self-care (01) ==
LOC: SURGOUT 05-29 09:49 → MS 05-29 09:49
PROVIDERS: Anesthesiology; Podiatrist Foot & Ankle Surgery; Admitting Provider Internal Medicine; PCP Physician Assistant; Visit Provider Internal Medicine
PROC: (CPT 1470; principal; 2024-05-21 08:30)
DX: M19.071 Primary osteoarthritis, right ankle and foot (principal); M93.271 Osteochondritis dissecans, right ankle and joints of right foot; I10 Essential (primary) hypertension; E11.9 Type 2 diabetes mellitus without complications; E03.9 Hypothyroidism, unspecified; M24.571 Contracture, right ankle; R33.9 Retention of urine, unspecified; K75.81 Nonalcoholic steatohepatitis (NASH); N32.0 Bladder-neck obstruction; N99.89 Other postprocedural complications and disorders of genitourinary system; G47.33 Obstructive sleep apnea (adult) (pediatric); Z79.84 Long term (current) use of oral hypoglycemic drugs; Z79.85 Long-term (current) use of injectable non-insulin antidiabetic drugs; Z86.718 Personal history of other venous thrombosis and embolism; Z90.710 Acquired absence of both cervix and uterus; Z90.49 Acquired absence of other specified parts of digestive tract; Z87.442 Personal history of urinary calculi
CPT/HCPCS: 20902; 27606; 27870; 28725; 36415; 51798; 64445; 73610; 76000; 82948; 85025; 94761; 96365; 96366; 96372; 96375; 96376; 97161; C1713; C1776; G0378; J0690; J1650; J1885; J2250; J2405; J2704; J3010

== ENCOUNTER 2024-06-12 09:38 | Outpatient (OUT) | payer BC, SELFPAY ==
--- NOTE | 2024-06-12 | XR_ITS ---
The [address] [address] Patient Name: DEJAH DYKES MRN: [id number] date: 1970 Sex: F Assigned Patient Location: [facility] Current Patient Location: Accession/Order Number: [id number] Exam Date: 06/12/2024 09:39 Report Date: 06/16/2024 07:23 At the request of: SAURABH MOREL Procedure: XR ankle RT min 3V PROCEDURE: XR ankle RT min 3V COMPARISON: None. HISTORY: RIGHT ANKLE PAIN FINDINGS: BONES:Stable ankle fusion utilizing a retrograde intramedullary nail and proximally and distally. There is mild bone formation anterior tibiotalar joint. Stable distal fibular resection. SOFT TISSUES:Negative. No visible soft tissue swelling. EFFUSION:None visible. OTHER: Negative. XR/XR ankle RT min 3V IMPRESSION: Ankle fusion with partial anterior tibiotalar joint bony bridging Electronically authenticated by: ILANA PINEDA Date: 06/16/2024 07:23
--- OUTSIDE RECORDS SUMMARY | 2024-06-12 09:56 | XMS_ITS | CCD ---
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 Name Role Phone PERICO MATTHEW H Admitting [...] Provider MD Jorge Alberto Rowe Attending Provider [phone] THELMA Santos Primary Care Provider NANLOYDA, NEEHARIKA [...] Provider THELMA Santos Primary Care Provider [phone] MD Kamilah Ward Attending Provider [phone] Hu Davis Attending Unavailable Hu Davis Referring [...] Lenora Zamarripa Referring Unavailable Forest Gonzalez Admitting UnavailForest Moreno Attending Unavaila Forest Jackson Consulting Unavaila Forest Jackson Attending Unavaila Forest Jackson Referring UnavailForest Moreno Admitting UnavailMD Forest Moreno Consulting Unava ilForest Schmidt Consulting UnavailHu Kuhn Referring Unavailable DO Hu Davis Admitting UnavailHu Triplett Attending Unavailable MD Tank Xavier Attending Provider [phone] MD Tank Xavier Referring Provider LENORA SANTOS Attending Unavailable LENORA SANTOS Attending Unavailable LENORA SANTOS Attending Unavailable LENORA SANTOS Attending Unavailable LENORA SANTOS Attending Unavailable LENORA SANTOS Attending Unavailable LENORA SANTOS Attending Unavailable LENORA SANTOS Attending Unavailable MARGE ALMANZA Attending Unavailable LENORA SANTOS Attending Unavailable ERMA García Attending Provider [phone] Lenora Santos Primary Care Unavailable Forest Giordano Attending Unavailable Forest Giordano Admitting Unavailable Asaad, Imad Admitting Unavailable Asaad, Imad Attending Unavailable Forest Giordano Referring Unavailable Lenora Santos Primary Care Unavailable Forest Giordano Admitting Unavailable Forest Giordano Attending Unavailable Lenora Santos Primary Care Unavailable Jorge Alberto Rowe Attending Unavailable Jorge Alberto Rowe Admitting Unavailable Lenora Santos Primary Care Unavailable Tank Xavier Attending Unavailable Tank Xavier Admitting Unavailable Lenora Santos Primary Care Unavailable Allan Dimas Attending Unavailable Allan Dimas Admitting Unavailable Lenora Santos Primary Care Unavailable Koffi García Attending Unavailable Koffi García Admitting Unavailable Lenora Santos Primary Care Unavailable Asaad, Imad Attending Unavailable Asaad, Imad Admitting Unavailable Tank Xavier Referring Unavailable Lenora Santos Primary Care Unavailable Tank Xavier Attending Unavailable Tank Xavier Admitting Unavailable Lenora Santos Primary Care Unavailable Asaad, Imad Admitting Unavailable Lenora Santos Primary Care Unavailable Asaad, Imad Attending Unavailable Allergies Allergy Classification Reported Allergen(s) Allergy Type Date of Onset Reaction(s) Facility Acetaminophen / HYDROcodone (1 source) Acetaminophen / HYDROcodone; Translations: [acetaminophen-hydr ocodone] Drug Allergy Hallucinations (finding) [facility] Sulfamethoxazole / Trimethoprim (1 source) Sulfamethoxazole / Trimethoprim; Translations: [sulfamethoxazole-t rimethoprim] Drug Allergy Weal (disorder) [facility] (20 sources) Acetaminophen / HYDROcodone; Translations: [acetaminophen-hydr ocodone] Drug Allergy 011 Hallucinations (finding), Other: See Comments [facility] (20 sources) Acetaminophen; Translations: [acetaminophen] Drug Allergy 023 Other: See Comments, [facility] (6 sources) HYDROcodone; Translations: [hydrocodone] Drug Allergy 023 Hallucinating [facility] (5 sources) Adhesive Tape; Translations: [ADHESIVE TAPE (ROSINS)] Allergy to substance 011 Rash, Itching [facility] Work Phone: (5 sources) Seasonal allergy; Translations: [SEASONAL ALLERGIES] Allergy to substance 011 Itching, Other: See Comments [facility] (9 sources) Acetaminophen / HYDROcodone; Translations: [HYDROCODONE-ACETAM INOPHEN] Drug Allergy 011 Hallucinations [facility] (8 sources) Other Allergy to substance 011 Itching, Other [facility] (8 sources) Wound Dressing Adhesive Drug Allergy 011 Itching, Rash [facility] (11 sources) Sulfamethoxazole / Trimethoprim; Translations: [sulfamethoxazole-t rimethoprim] Drug Allergy 024 Weal (disorder), Other [facility] (14 sources) Sulfamethoxazole; Translations: [sulfamethoxazole] Drug Allergy yeast infection [facility] (14 sources) Trimethoprim; Translations: [trimethoprim] Drug Allergy yeast infection [facility] Medications Current Medications Medication Drug Class(es) [...] tab(s), Oral, Daily, 90 tab(s), Refill(s) 1, [facility]/pharmacy #[id number] Start Date: 04/08/19 [...] procedure, # 2 tab(s), Refills(s) 0, Pharmacy: [facility]/pharmacy #[id number], 163, cm, 03/28/22 [...] 3 weeks, then 3x per week thereafter, [facility]/pharmacy #[id number], 162.5, cm, 04/24/22 15:43:00 EDT, Height/Length Dosing, 105, kg, 03/28/22 9:01:00 EDT, Weight Dosing Start Date: 06/01/22 Status: Ordered Start: 03-28-2022 Estrace 0.1 mg /g Cream See Instructions, 42.5 gm, Refill(s) 5, insert 1gm vaginally & apply pea sized amount around the urethra nightly x 3 weeks, then 3x per week thereafter, [facility]/pharmacy #[id number], 163, cm, 03/28/22 [...] dinner. metoprolol tartrate 25 mg oral tablet (8 sources) beta-Adrenergic Liza Start: 05-19-2024 Metoprolol Succinate [...] extended release oral tablet (20 sources) Start: 4 take 1 tablet by mouth in the [...] day(s), # 21 tab(s), Refills(s) 0, Pharmacy: [id number], 162, cm, 08/12/23 11:38:00 EST, Height/Length Dosing, [...] 03/03/24 Status: Ordered Rezdiffra 100 MG tablet (6 sources) Start: 02-17-2024 Rezdiffra 100 MG tablet 02/17/2024 Active 0.25 mg, 0.5 mg dose 1.5 ml semaglutide 1.34 mg/ml pen injector (4 sources) semaglutide (Ozempic, 0.25 or 0.5 MG/DOSE,) [...] Cooley ( ) take 1 capsule by mo [facility] every twenty-four hours Tamsulosin HCl 0.4 MG 1 capsule Orally Once a day Active zolpidem tartrate 10 mg oral tablet (20 sources) gamma-Aminobutyric Acid-ergic Agonist Start: 11-07-2023 take 1 tablet by mouth once daily [...] Comment on above: [facility] needed. for insomnia. Completed/Discontinued [...] on above: Take 1 tablet by vargas q 6 HR. Cardioplegic No.20 (Maint 4:1) [...] 11:08am docusate sodium 50 mg / sennosides, long-term 8.6 mg oral tablet (20 sources) Start: [...] Base Active 0.25 ML SUBCUT every week 1 March 17, 2024 12:00am [facility] Comp[facility] [...] Date Documented Da te Episodic/Chronic Anxiety disorders (8 sources) Anxiety; Translations: [Anxiety disorder, unspecified] Onset: 01-04-2023 01-04-2023 Chronic Diabetes mellitus without complication (18 sources) Type 2 diabetes mellitus; Translations: [Type 2 diabetes mellitus without complications] Onset: 05-04-2024 04-24-2024 Chronic Essential hypertension (20 sources) Essential hypertension; Translations: [Essential (primary) hypertension] Onset: 01-04-2023 05-06-2023 Chronic Hepatitis (20 sources) Steatohepatitis; Translations: [Nonalcoholic steatohepatitis (MANRIQUEZ)] Onset: 04-30-2024 12-24-2023 Chronic Miscellaneous mental health disorders (9 sources) Primary insomnia; Translations: [Primary insomnia] Onset: 01-04-2023 01-04-2023 Chronic Mood disorders (20 sources) Depressive disorder; Translations: [Depression] Onset: 02-01-2023 12-11-2018 Chronic Osteoarthritis (12 sources) Degenerative joint disease of ankle AND/OR foot; Translations: [Primary osteoarthritis, unspecified ankle and foot] Onset: 03-20-2011 03-20-2011 Chronic Other aftercare (1 source) Other fdc (current) drug therapy; Translations: [Other fdc (current) drug therapy] Onset: 05-04-2024 Episodic Other bone disease and musculoskeletal deformities (20 sources) Osteochondritis dissecans; 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] Onset: 02-01-2023 09-08-2019 Chronic Other bone disease and musculoskeletal deformities (12 sources) Osteochondritis dissecans of the talus; Translations: [...] metabolic disorders (18 sources) Body mass index 40+ - severely [...] Episodic Chronic obstructive pulmonary disease and bronchiectasis (6 sources) Bronchitis; Translations: [Bronchitis, not specified as acute or chronic] Onset: 09-30-2023 09-30-2023 Episodic Diabetes mellitus without complication (20 sources) Hyperglycemia; Translations: [Hyperglycemia, unspecified] Onset: 02-14-2023 02-14-2023 Episodic Fluid and electrolyte disorders (9 sources) Hypokalemia; Translations: [Hypokalemia] Onset: 12-15-2021 Episodic Genitourinary symptoms and ill-defined conditions (20 sources) Increased frequency of urination; Translations: [Frequency of micturition] Onset: 03-28-2022 Episodic Other and unspecified benign neoplasm (12 sources) Neuroma; Translations: [Benign neoplasm of peripheral nerves and autonomic nervous system, unspecified] Onset: 08-22-2011 08-22-2011 Episodic Other circulatory disease (20 sources) H/O: hypertension; Translations: [Personal history of other diseases of the circulatory system] Onset: 02-01-2023 12-11-2018 Episodic Other connective tissue disease (8 sources) Muscle pain; Translations: [Myalgia, unspecified site] Onset: 08-13-2023 08-13-2023 Episodic Other diseases of veins and lymphatics (8 sources) Venous stasis edema of right lower limb; Translations: [Venous insufficiency (chronic) (peripheral)] Onset: 06-13-2023 06-13-2023 Episodic Other non-traumatic joint disorders (12 sources) Arthralgia of the ankle and/or foot; Translations: [Pain in unspecified ankle and joints of unspecified foot] Onset: 03-14-2011 03-14-2011 Episodic Other non-traumatic joint disorders (12 sources) Instability of joint of left ankle; Translations: [Other instability, left ankle] Onset: 03-20-2011 03-20-2011 Episodic Other non-traumatic joint disorders (4 sources) Instability of joint of right ankle; Translations: [Other instability, right ankle] Onset: 04-23-2011 04-23-2011 Episodic Other non-traumatic joint disorders (20 sources) Hip pain; Translations: [Pain in right hip] Onset: 09-20-2023 08-12-2023 Episodic Other non-traumatic joint disorders (8 sources) Pain in lower limb; Translations: [Pain in unspecified joint] Onset: 08-09-2023 08-09-2023 Episodic Other non-traumatic joint disorders (1 source) Pain in right knee; Translations: [Pain in right knee] Onset: 10-24-2023 Episodic Other nutritional; endocrine; and metabolic disorders (2 sources) Weight gain; Translations: [Abnormal weight gain] Onset: 02-01-2023 02-01-2023 Episodic Other nutritional; endocrine; and metabolic disorders (6 sources) Weight increased; Translations: [Abnormal weight gain] Onset: 02-01-2023 02-01-2023 Episodic Other screening for suspected conditions (not mental disorders or infectious disease) (20 sources) Patient encounter status; Translations: [Encounter for screening for malignant neoplasm of colon] Onset: 12-06-2023 09-14-2023 Episodic Other upper respiratory infections (8 sources) Acute frontal sinusitis; Translations: [Acute frontal sinusitis, unspecified] Onset: 06-13-2023 06-13-2023 Episodic Residual codes; unclassified (8 sources) Influenza vaccination status; Translations: [Personal history of other drug therapy] Onset: 02-01-2023 02-01-2023 Episodic Residual codes; unclassified (8 sources) Tobacco non-user; Translations: [Other specified health status] Onset: 02-01-2023 02-01-2023 Episodic Spondylosis; intervertebral disc disorders; other back problems (19 sources) Sciatica; Translations: [Sciatica, right side] Onset: 01-04-2023 01-04-2023 Episodic Unclassified (1 source) Lumbar back pain M54.50 Viral infection (6 sources) Herpes zoster; Translations: [Zoster without complications] Onset: 10-04-2023 10-04-2023 Episodic Viral infection (1 source) Disease caused by 2019-nCoV; Translations: [COVID-19] Onset: 09-28-2023 Results Test Name Value Interpretation Reference Range Facility ALL CBC WITH AUTO DIFFon BASOPHILS ABSOLUTE AUTO 0.1 [facility] Basophils/100 WBC (Bld) 0.7 % 0.2 - 2.0 % [facility] Eosinophils/100 WBC (Bld) 1.7 % 0.9 - 7.0 % [facility] Erythrocyte distribution width (RBC) [Ratio] 12.1 % 11.0 - 15.0 % [facility] Hematocrit (Bld) [Volume fraction] 44.6 % 36.0 - 48.0 % [facility] Hemoglobin (Bld) [Mass/Vol] 15.4 g/dL 12.0 - 16.0 g/dL [facility] IMMATURE GRANULOCYTES ABS AUTO 0.[address] [facility] Immature granulocytes/100 WBC (Bld) 0.1 % 0.0 - 0.5 % [facility] LYMPHOCYTES ABSOLUTE AUTO 3.[address] [facility] Lymphocytes/100 WBC (Bld) 44.7 % 20.5 - 60.0 % [facility] MCH (RBC) [Entitic mass] 31.5 pg 26.7 - 34.[address] [facility] MCHC (RBC) [Mass/Vol] 34.5 g/dL 29.9 - 35.2 g/dL [facility] MCV (RBC) [Entitic vol] 91.2 fL 81.0 - 99.[address] [facility] MONOCYTES ABSOLUTE AUTO 0.7 [facility] Monocytes/100 WBC (Bld) 8.1 % 1.7 - 12.0 % [facility] NEUTROPHILS ABSOLUTE AUTO 3.[address] [facility] Neutrophils/100 WBC (Bld) 44.7 % 43.0 - 75.0 % [facility] Platelet mean volume (Bld) [Entitic vol] 10.4 fL 9.5 - 13.[address] [facility] TBH EO # 0.1 [facility] PLT 210 [facility] RBC 4.[address] [facility] TB WBC [address] [facility] Seb 05-21-2024 L Specimen: [id number] Received: 05/25/24 Status: NAKUL Sanchez Num: [id number] Spec Type: Surgical Subm Dr: Koffi García,DPM, MS Tissues: A Bone - Resection (RIGHT FIBULA) B Bone Fragments - Other than Path Fracture (RIGHT TALUS) C Bone Fragments - Other than Path Fracture (RIGHT REAMING) Procedures: HE/4, Gross/Micro L3/2, Gross/Micro L2, Decalcification/3 Age/ Patient Sex Location Account Attending Physician CharlieDejah Elias 53/F LABELL [id number] Koffi García DPM, MS SPEC NUM: [id number] RECD: 05/25/24 STATUS: NAKUL LAURA NUM: [id number] LEONEL: 05/21/[address] [facility] DR: Koffi García DPM, MS ENTERED: 05/25/24 [facility] DR: Chester Llanes SPEC TYPE: Surgical DEPT: A[facility]ACH ENTERED BY: [id number] RECV BY: [id number] ORDERED: HE/4, Gross/Micro L3/2, Gross/Micro L2, Decalcification/3 ORDERED: HE/4, Gross/Micro L3/2, Gross/Micro L2, Decalcification/3 Pathological Diagnosis A, right fibula, segmental resection: -Segmental portion of fibula bone with apparent irregular articular chondroid thickening and markedly associated chondroid erosion and fibrillary degeneration, in addition to focal suture granuloma of the irregularly thickened periosteal soft tissue, compatible with features or manifest of severe degenerative osteoarthritis -Viable bony surgical margin without acute inflammation B, right talus, excision: -An irregular ovoid fragment of chondro-osseous bone with marked reactive and degenerative surface chondroid changes of severe degenerative osteoarthritis similar to part A specimen C, right foot reaming: -Occasional small strips of benign soft tissue and many intermixed bony dusts consistent with with the reductive cortical peeling for underlying severe degenerative osteoarthritis without acute inflammation noticed Specimen: [id number] Received: 05/25/24 Status: NAKUL Merchanttal Num: [id number] Spec Type: Surgical Subm Dr: Koffi García DPM, MS Tissues: A Bone - Resection (RIGHT FIBULA) B Bone Fragments - Other than Path Fracture (RIGHT TALUS) C Bone Fragments - Other than Path Fracture (RIGHT REAMING) Procedures: HE/4, Gross/Micro L3/2, Gross/Micro L2, Decalcification/3 Patient: Dejah Dykes [id number] (Continued) Specimen: [id number] Received: 05/25/24 (Continued) Signed (signature on file) Bonilla Ramesh MD 05/29/241837 Specimen: [id number] Received: 05/25/24 Status: NAKUL Sanchez Num: [id number] Spec Type: Surgical Subm Dr: Koffi García,DPM, MS Tissues: A Bone - Resection (RIGHT FIBULA) B Bone Fragments - Other than Path Fracture (RIGHT TALUS) C Bone Fragments - Other than Path Fracture (RIGHT REAMING) Procedures: HE/4, Gross/Micro L3/2, Gross/Micro L2, Decalcification/3 Patient: Dejah Dykes [id number] (Continued) Specimen: [id number] Received: 05/25/24 (Continued) Clinical Information Osteochondritis dissecans, primary osteoarthritis Gross Description Part A is received in formalin with the patient's name and right fibula and consists of a segment of bone measuring 5.0 x 3.0 x 2.0 cm. The exterior surfaces covered with white connective tissue and possible purulent debris. The specimen is serially sectioned. Account Resolution Specialist sections are as follows: A1 surgical margin en face, (submitted in decal before routine processing) A2 random section, (submitted in decal before routine processing) Part B is received in formalin the patient's name and right talus and consists of a irregular shaped portion of bone measuring 1.5 x 0.9 x 0.6 cm. The specimen is entirely submitted in cassette B1. The specimen is placed in the decal before routine processing. Part C is received in formalin with the patient's name and right reaming and consists of multiple lenz-white soft portions of bone measuring 2.0 x 1.2 x 0.3 cm in aggregate. The specimen is entirely submitted in cassette C1. DM Microscopic Description Microscopic examinations are performed supporting the above interpretation CPT Codes 27690 [id number] Specimen: [id number] Received: 05/25/24 Status: NAKUL Sanchez Num: [id number] Spec Type: Surgi (more content not included)... Normal [facility] - Hematology and Cell countson 05-18-2024 HbA1c (Bld) [Mass fraction] 5.4 % [facility] No Panel Informationon 05-[address] [facility] ALL CBC WITH AUTO DIFFon BASOPHILS ABSOLUTE AUTO 0.1 N [facility] Basophils/100 WBC (Bld) 1.0 % 0.2 - 2.0 % [facility] Eosinophils/100 WBC (Bld) 1.6 % 0.9 - 7.0 % [facility] Erythrocyte distribution width (RBC) [Ratio] 12.2 % 11.0 - 15.0 % [facility] Hematocrit (Bld) [Volume fraction] 46.1 % 36.0 - 48.0 % [facility] Hemoglobin (Bld) [Mass/Vol] 15.6 g/dL 12.0 - 16.0 g/dL [facility] IMMATURE GRANULOCYTES ABS AUTO 0.[address] [facility] Immature granulocytes/100 WBC (Bld) 0.2 % 0.0 - 0.5 % [facility] Interpretation and review of laboratory results Abnormal [facility] LYMPHOCYTES ABSOLUTE AUTO 3.[address] [facility] Lymphocytes/100 WBC (Bld) 47.8 % 20.5 - 60.0 % [facility] MCH (RBC) [Entitic mass] 31.3 pg 26.7 - 34.[address] [facility] MCHC (RBC) [Mass/Vol] 33.8 g/dL 29.9 - 35.2 g/dL [facility] MCV (RBC) [Entitic vol] 92.6 fL 81.0 - 99.[address] [facility] MONOCYTES ABSOL[facility] Mon[facility]/100 WBC (Bld) 7.0 % 1.7 - 12.0 % [facility] NEUTROPHILS ABSOLUTE AUTO 2.[address] [facility] Neutrophils/100 WBC (Bld) 42.4 % Low 43.0 - 75.0 % [facility] Platelet mean volume (Bld) [Entitic vol] 10.6 fL 9.5 - 13.[address] [facility] EO # 0.[address] [facility] PLT [address] [facility] TB RBC 4.[address] [facility] TB WBC 6.[address] [facility] Creatinine [Mass/volume] in UrineOrdered By: Tank Xavier on 05-04-2024 Creatinine (U) [Mass/Vol] 165.00 mg/dL [facility] Comment on above: No reference range e stablished MicroAlb Creat Ratio,Uon Creatinine, Urine (Random) 165.00 mg/dL Normal [facility] Comment on above: Result Comment: No r eference range established Performed By: #### B 12, URMACRERAT #### [facility] [address] [place] [address] Microalbumin/Creatinine Ratio 4.8 mg/g Normal 0.0-30.0 [facility] Comment on above: Result Comment: 30-3 00 mg/g indicates an increased risk for diabetic nephropathy. Greater than 300 mg/g is consistent with clinical nephropathy. (Am. J. Kidney Disease 1994, 25:107) PERFORMED BY: [place] [address] PATHOLOGIST FIRE MARSHAL REFINERY LORRAINE DIETZ M.D. Performed By: #### B 12, URMACRERAT #### [facility] [address] Microalbumin [Mass/volume] i n UrineOrdered By: Tank Xavier on 05-04-2024 Albumin DL <= 20 mg/L (U) [Mass/Vol] 0.8 mg/dL Normal 0.0-1.8 [facility] Comment on above: Performed By: #### B 12, URMACRERAT #### [facility] [address] [place] [id number] [facility] Urine microalbumin/creatinin e mass ratioOrdered By: Tanknaomi Xavier on 05-04-2024 Albumin/Creatinine DL <= 20 mg/L (U) [Mass ratio] 4.8 mg/g 0.0-30.0 [facility] Comment on above: 30-300 mg/g indicate s an increased risk for diabetic nephropathy. Greater than 300 mg/g is consistent with clinical nephropathy. (Am. J. Kidney Disease 1995, 25:107) Vitamin B12 ser/plasOrdered By: Tank Xavier on 05-04-2024 Cobalamin (Vitamin B12) [Mass/Vol] 291 pg/mL Normal 180-914 [facility] Comment on above: Result Comment: PERF ORMED BY: [facility] [address] [place] [address] PATHOLOGIST FIRE MARSHAL REFINERY LORRAINE DIETZ M.D. Performed By: #### B 12, URMACRERAT ####[facility] [id number] [place] [id number] [facility] Alanine aminotransferase [En zymatic activity/volume] in Serum or PlasmaOrdered By: Imad Asaad on 04-30-2024 ALT [Catalytic activity/Vol] 66 U/L High 7-52 [facility] Comment on above: Performed By: #### C MP #### [facility] [address] [place] [id number] [place] Albumin [Mass/volume] in Ser um or Plasma by Bromocresol green (BCG) dye binding methoOrdered By: Imad Asaad on 04-30-2024 Albumin BCG dye [Mass/Vol] 4.3 g/dL 3.5-5.7 [facility] Alkaline phosphatase [Enzyma tic activity/volume] in Serum or PlasmaOrdered By: Imad Asaad on 04-30-2024 ALP [Catalytic activity/Vol] 60 U/L Normal 34-104 [facility] Comment on above: Result Comment: PERF ORMED BY: [facility] [address] [place] [address] PATHOLOGIST FIRE MARSHAL REFINERY LORRAINE DIETZ M.D. Performed By: #### C MP #### [address] Aspartate aminotransferase [ Enzymatic activity/volume] in Serum or PlasmaOrdered By: Imad Asaad on 04-30-2024 AST [Catalytic activity/Vol] 60 U/L High 13-39 [facility] Comment on above: Performed By: #### C MP #### [address] Bilirubin.total [Mass/volume ] in Serum or PlasmaOrdered By: Imad Asaad on 04-30-2024 Bilirubin [Mass/Vol] 0.7 mg/dL Normal 0.3-1.0 [facility] Comment on above: Performed By: #### C MP #### [address] Calcium [Mass/volume] in Ser um or PlasmaOrdered By: Imad Asaad on 04-30-2024 Calcium [Mass/Vol] 9.7 mg/dL Normal 8.6-10.3 [facility] Comment on above: Performed By: #### C MP #### [address] Carbon dioxide, total [Moles /volume] in Serum or PlasmaOrdered By: Imad Asaad on 04-30-2024 CO2 [Moles/Vol] 26.6 mmol/L Normal 21.0-31.0 [facility] Comment on above: Performed By: #### C MP #### [place] [address] [place] Chloride [Moles/volume] in S nusrat or PlasmaOrdered By: Imad Asaad on 04-30-2024 Chloride [Moles/Vol] 107 mmol/L Normal 98-107 [facility] Comment on above: Performed By: #### C MP #### [address] Comprehensive Metabolic Pane seb 04-30-2024 Albumin [Mass/Vol] 4.3 g/dL Normal 3.5-5.7 [facility] Comment on above: Performed By: #### C MP #### [address] GFR/1.73 sq M.predicted MDRD (S/P/Bld) [Vol rate/Area] mL/min/{1.73_m2} Normal [facility] Comment on above: Performed By: #### C MP #### [address] Creatinine [Mass/volume] in Serum or PlasmaOrdered By: Imad Asaad on 04-30-2024 Creatinine [Mass/Vol] 0.68 mg/dL Normal 0.60-1.20 [facility] Comment on above: Performed By: #### C MP #### [address] Glucose [Mass/volume] in Ser um or PlasmaOrdered By: Imad Asaad on 04-30-2024 Glucose [Mass/Vol] 92 mg/dL Normal 70-100 [facility] Comment on above: ADA recommended refe rence rangeRandom Glucose Reference Range is dependent on time and content of last meal. Glucose of more than 200 mg/dL in a nonstressed, ambulatory subject supports the diagnosis of Diabetes Mellitus. Result Comment: [place] om Glucose Reference Range is dependent on time and content of last meal. Glucose of more than 200 mg/dL in a nonstressed, ambulatory subject supports the diagnosis of Diabetes Mellitus. ADA recommended reference range Performed By: #### C MP #### [address] No Panel InformationOrdered By: Imad Asaad on 04-30-2024 Estimated GFR (CKD-EPI) > 60.0 mL/Min [facility] Creatinine Clearance (Chem N/A [facility] Potassium [Moles/volume] in Serum or PlasmaOrdered By: Imad Asaad on 04-30-2024 Potassium [Moles/Vol] 4.2 mmol/L Normal 3.5-5.1 [facility] Comment on above: Performed By: #### C MP #### [address] Protein [Mass/volume] in Ser um or PlasmaOrdered By: Imad Asaad on 04-30-2024 Protein [Mass/Vol] 6.9 g/dL Normal 6.4-8.9 [facility] Comment on above: Performed By: #### C MP #### [address] Serum globulin measurement b y calculation (mass/volume)Ordered By: Imad Asaad on 04-30-2024 Globulin (S) [Mass/Vol] 2.6 g/dL Normal [facility] Comment on above: Performed By: #### C MP #### [address] Serum or plasma albumin/glob ulin mass ratioOrdered By: Imad Asaad on 04-30-2024 Albumin/Globulin [Mass ratio] 1.7 {ratio} Normal [facility] Comment on above: Performed By: #### C MP #### [address] Serum or plasma anion gap de terminationOrdered By: Imad Asaad on 04-30-2024 Anion gap [Moles/Vol] 9.6 mmol/L Normal 6.0-15.0 [facility] Comment on above: Performed By: #### C MP #### [address] Sodium [Moles/volume] in Ser um or PlasmaOrdered By: Imad Asaad on 04-30-2024 Sodium [Moles/Vol] 139 mmol/L Normal 136-145 [facility] Comment on above: Performed By: #### C MP #### [address] Urea nitrogen [Mass/volume] in Serum or PlasmaOrdered By: Imad Asaad on 04-30-2024 Urea nitrogen [Mass/Vol] 14 mg/dL Normal 7-25 [facility] Comment on above: Performed By: #### C MP #### [address] Glucose Tolerance 2 Houron 0 03-28-2024 Glucose Tolerance 2 Hour High [facility] Comment on above: Result Comment: FAST ING 112 H Col: 03/28/24 0727 1HR GLU 213 Col: 03/28/24826 2HR GLU 242 Col: 03/28/24926 NON-GESTATIONAL GESTATIONAL FASTING 70-100 < 92 1 HOUR < 200 < 180 2 HOUR < 140 < 153 PERFORMED BY: [place] [address] PATHOLOGIST FIRE MARSHAL REFINERY LORRAINE DIETZ M.D. Performed By: #### G TT2 ####[facility] [id number] Serum or plasma glucose courtney urement 2 hours post 75 gm oral glucose (mass/volume)Ordered By: Tank Xavier on 03-28-2024 Glucose 2 Hr post 75 g glucose PO [Mass/Vol] See comment [facility] Comment on above: FASTING 112 H Col: 0 03/28/24726 1HR GLU 213 Col: 03/28/24826 2HR GLU 242 Col: 03/28/24926 A1C with Estimated Average G luon 03-06-2024 Glucose [Mass/Vol] 131 mg/dL Normal [facility] Comment on above: Result Comment: PERF ORMED BY: [place] [address] PATHOLOGIST FIRE MARSHAL REFINERY LORRAINE DIETZ M.D. Performed By: #### E LF #### [facility] , #### LIPID, A1C WTH eA #### [facility] [address] [place], [place] [address] [facility] Cholesterol [Mass/volume] in Serum or PlasmaOrdered By: Kamilah Ward on 03-06-2024 Cholesterol [Mass/Vol] 152 mg/dL Normal 140-200 [facility] Comment on above: Chol less than 200 m g/dl low riskChol 201-239 mg/dl borderline riskChol 240 mg/dl and greater high risk Result Comment: Chol less than 200 mg/dl low risk Chol 201-239 mg/dl borderline risk Chol 240 mg/dl and greater high risk Performed By: #### E LF #### [facility] , #### LIPID, A1C [facility] eA #### [facility] [address] [place], [place] [address] Cholesterol in LDL Calc [Mas s/Vol]Ordered By: Kamilah Ward on 03-06-2024 Cholesterol in LDL [Mass/Vol] 78 mg/dL 0-100 [facility] Comment on above: LDL ATP III CLASSIFI CATIONLDL less than 100 mg/dL OptimalLDL 100-129 mg/dL Near or above optimalLDL 130-159 mg/dL Borderline highLDL 160-189 mg/dL HighLDL greater than 189 mg/dL Very high Cholesterol in VLDL Calc [Ma ss/Vol]Ordered By: Kamilah Ward on 03-06-2024 Cholesterol in VLDL [Mass/Vol] 20 mg/dL [facility] Enhanced Liver Fibrosis Test on 03-06-2024 Enhanced Liver Fibrosis Score 10.94 High <9.80 [facility] Comment on above: Result Comment: [...] trials. J Hepatol. 2020 Feb;73(1):26-39. Performed at: [facility] [address] [id number] Analysis Engineer: Leyla Britt MD, Phone: [phone] PERFORMED BY: [address] [address] PATHOLOGIST FIRE MARSHAL REFINERY LORRAINE DIETZ M.D. Performed By: #### E LF #### [facility] , #### LIPID, A1C [facility] eA #### [facility] [address] Glucose mean value [Mass/vol ume] in Blood Estimated from glycated hemoglobinOrdered By: Kamilah Ward on 03-06-2024 Average glucose Estimated from glycated hemoglobin (Bld) [Mass/Vol] 131 mg/dL [facility] Hemoglobin A1c percentageOrd ered By: Kamilah Ward on 03-06-2024 HbA1c (Bld) [Mass fraction] 6.2 % High 4.3-5.6 [facility] Comment on above: Increased risk for d iabetes: 5.7 - 6.4diabetes: >6.4glycemic control for adults with diabetes: <7.0 Result Comment: Incr eased risk for diabetes: 5.7 - 6.4 diabetes: >6.4 glycemic control for adults with diabetes: <7.0 Performed By: #### E LF #### [facility] , #### LIPID, A1C WTH eA #### [address] Lipid Panelon 03-06-2024 LDL Cholesterol,Calculated 78 mg/dL Normal 0-100 [facility] Comment on above: Result Comment: LDL ATP III CLASSIFICATION LDL less than 100 mg/dL Optimal LDL 100-129 mg/dL Near or above optimal LDL 130-159 mg/dL Borderline high LDL 160-189 mg/dL High LDL greater than 189 mg/dL Very high Performed By: #### E LF #### [facility] , #### LIPID, A1C WTH eA #### [address] Triglyceride w/Reflex 102 mg/dL Normal 0-149 [facility] Comment on above: Result Comment: TRIG ATP III CLASSIFICATION TRIG less than 150 mg/dL Normal TRIG 150-199 mg/dL Borderline high TRIG 200-500 mg/dL High TRIG greater than 500 mg/dL Very high Standard traceable to the Center for Disease Conrtrol and Prevention (CDC) test method. Performed By: #### E LF #### [facility] , #### LIPID, A1C WTH eA #### [address] [address] [place] VLDL CHOLESTEROL 20 mg/dL Normal [facility] Comment on above: Performed By: #### E LF #### [facility] , #### LIPID, A1C WT eA #### [facility] [address] Serum or plasma high density lipoprotein (HDL) cholesterol measurementOrdered By: Imad Asaad on 03-06-2024 Cholesterol in HDL [Mass/Vol] 54 mg/dL Normal 23-92 [facility] Comment on above: HDL CHOL ATP-III CLA SSIFICATION Cardiovascular RiskHDL > or equal to 60 mg/dL LOWHDL < 40 mg/dL HIGH Result Comment: HDL CHOL ATP-III CLASSIFICATION Cardiovascular Risk HDL > or equal to 60 mg/dL LOW HDL < 40 mg/dL HIGH Performed By: #### E LF #### [facility] , #### LIPID, A1C [facility] eA #### [facility] [address] [place] [address] Serum or plasma total choles terol/high density lipoprotein (HDL) cholesterol mass ratOrdered By: Imad Asaad on 03-06-2024 Cholesterol.total/Nanci sterol in HDL [Mass ratio] 2.8 {ratio} Normal <5.0 [facility] Comment on above: Result Comment: PERF ORMED BY: [place] [address] PATHOLOGIST FIRE MARSHAL REFINERY LORRAINE DIETZ M.D. Performed By: #### E LF #### [facility] , #### LIPID, A1C [facility] eA #### [facility] [address] Triglyceride [Mass/volume] i n Serum or PlasmaOrdered By: Imad Asaad on 03-06-2024 Triglyceride [Mass/Vol] 102 mg/dL 0-149 [facility] Comment on above: TRIG ATP III CLASSIF [...] Date/Time: 03/03/24 14:57:24 Pt. Name: DEJAH DYKES /Sex: 1970 Female Med Rec #: [id number] Physician: Hu Davis DO Financial #: [id number] Pt. Type: P Room/Bed: / Admit/Disch: 03/03/24 13:37:06 - Institution: Case Times FTPM Entry 1 Patient Times In Room 03/03/24 14:49:00 Out Room 03/03/24 14:58:00 Procedure Times Start 03/03/24 14:52:00 Stop 03/03/24 14:57:00 Anesthesia Times Last Modified By: Mac DOHERTY, Melinda Little 03/03/24 14:57:20 Case Attendance FTPM Entry 1 Entry 2 Entry 3 Case Attendee Hu Davis DO, RN, Brianda Martino RN Role Performed Surgeon - Primary Station Cleaning Porter - Primary Scrub - Primary Time In 03/03/24 14:49:00 03/03/24 14:49:00 03/03/24 14:49:00 Time Out 03/03/24 14:58:00 03/03/24 14:58:00 03/03/24 14:58:00 Procedure TRANSFORAMINAL EPIDURAL TRANSFORAMINAL EPIDURAL TRANSFORAMINAL EPIDURAL STEROID STEROID STEROID INJECTIO(Bilateral) INJECTIO(Bilateral) INJECTIO(Bilateral) Comments Last Modified By: Mac DOHERTY, Melinda Watts RN, Melinda Keenan RN 03/03/24 14:57:20 03/03/24 14:57:20 03/03/24 14:57:20 Entry 4 Case Attendee Layton Harvey Role Performed Line Walker Time In 03/03/24 14:49:00 Time Out 03/03/24 [...] RN, Ryan Lamar DO, Bradford A., Roll RTLayton Time Out Complete 03/03/24 14:49:00 Outcomes Met? [...] and tissue Entry 1 Skin Integrity Intact, [place], Warm, & Skin Abnormality No Dry Outcomes [...] Safety Strap (more content not included)... Normal [facility] Main OR Preoperative Recordo n 03-03-2024 Main OR Preoperative Record Main OR Preoperative Record Holding Area Document Type FTPM Summary Primary Physician: Hu Davis DO Finalized Date/Time: 03/03/24 13:55:55 Pt. Name: DEJAH DYKES/Sex: 1970 Female Med Rec #: [id number] Physician: Hu Davis DO Financial #: [id number] Pt. Type: P Room/Bed: / Admit/Disch: 03/03/24 [...] 03/03/24 13:55 Zofia Reyes RN 03/03/24 13:55 [facility] Consent for Treatmenton 01-04 Consent for Treatment [id number]#1.00TIFF Normal [facility] Consultation Noteon 01-29-20 Consultation Note Patient: [...] symptoms. She has taken a multitude of mefq-gpi-sdavpwq medication without improvement. The most that she [...] Insomnia, # 30 tab(s), Refills(s) 1, Pharmacy: [facility]/pharmacy #[id number], 161, cm, 09/08/19 14:29:00 EST, Height/Length Measured, 110.5, kg, 09/08/19 14:29:00 EST, Weight Measured Estrace 0.1 mg/g Cream: See Instructions, 42.5 gm, Refill(s) 5, insert 1gm vaginally & apply pea sized amount around the urethra nightly x 3 weeks, then 3x per week thereafter, [facility]/pharmacy #[id number], 162.5, cm, 04/24/22 15:43:00 EDT, Height/Length Dosing, 105, kg, 03/28/22 9:0... Ziac 5 mg-6.25 mg oral tablet: 1 tab(s), Oral, Daily, 90 tab(s), Refill(s) 1, [facility]/pharmacy #[id number] minocycline 100 mg Cap: 100 mg, Oral, Daily, # 100 cap(s), Refills(s) 1, Pharmacy: [facility]/pharmacy #[id number] Documented Medications Documented Singulair: 10 mg, Oral, qPM, Refills(s) 0, Allergy symptoms levothyroxine 50 mcg (0.05 mg) Tab: Refills(s) 0 metformin: 500 mg, Oral, QID, Refills(s) 0 potassium chloride 10 mEq ER Tab: 10 mEq = 1 tab(s), Oral, BID, Prophylaxis Problem list: All Problems Lumbar disc herniation / SNOMED CT 561308564 / Confirmed L4-5 fusion Allergic rhinitis, seasonal / SNOMED CT 092006403 / Confirmed H/O: HTN (hypertension) / SNOMED CT 052252442 / Confirmed Depression / SNOMED CT 901655733 / Confirmed Fatty liver / SNOMED CT 880246367 / Confirmed Acne rosacea / SNOMED CT 1214848114 / Confirmed 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 Class 3 severe obesity with body mass index (BMI) of 40.0 to 44.9 in adult / SNOMED CT 0750305408 / Confirmed Non-tobacco user / SNOMED CT 950574467 / Confirmed Influenza vaccination up to date / SNOMED CT 127047027 / Confirmed Urine frequency / SNOMED CT 741988746 / Confirmed Kidney stones / SNOMED CT 052039205 / Confirmed Frequent UTI / SNOMED CT 273352702 / Confirmed Resolved: DVT / SNOMED CT 707845574 Resolved: Kidney stones / SNOMED CT 760LF458-V382-5883-L2Q1-3H [id number] Objective Vital Signs 01/29/2024 8:14 EDT Peripheral Pulse Rate 66 bpm Respiratory Rate 14 br/min Systolic Blood Pressure 128 mmHg Diastolic Blood Pressure 73 mmHg Mean Arterial Pressure, Cuff 91 mmHg General: Alert and oriented, No acute distress. Eye: Normal conjunctiva. HENT: Normocephalic, Normal hearing. Cardiovascular: No edema. Musculoskeletal Normal range of motion. Normal strength. 5/5 lower extremity strength Integumentary: Warm, Dry, [place]. Neurologic: Alert, Oriented. Psychiatric: Cooperative, Appropriate mood [...] are maintained. (more content not included)... Normal [facility] Comment on above: Result Comment: Elec tronically Signed By: Yesica RENEE, Tamiko\.br\Date and Time Signed: 01/29/24 08:33 EDT Office/Clinic Note-Physician on 01-29-2024 Office/Clinic Note-Physician [id number]#1.00TIFF Normal [facility] Office/Clinic Note-Physician [id number]#1.00TIFF Normal [facility] Patient Correspondenceon Patient Correspondence [id number]#1.00TIFF Normal [facility] Patient Correspondence [id number]#1.00TIFF Normal [facility] Patient History Officeon Patient History Office [id number]#1.00TIFF Normal [facility] SURGICAL PATHOLOGY REFERENCE LAB CONSULTon 12-16-2023 CASE REPORT Normal [facility] Comment on above: Order Comment: Speci men Type: FORMALIN-FIXED PARAFFIN-EMBEDDED TISSUE SPECIMEN Ordering Facility: [facility] Address: [address] [place] [phone] Result Comment: Surg ica Pathology Report Case: [id number] Authorizing Provider: Carlitos Ramesh MD Collected: 12/16/2023 02:45 PM Ordering Location: [facility] Received: 12/16/2023 02:44 PM [facility] Pathologist: Gely Wells MD Specimen: Slide(s), 11 SLIDES [id number] Performed By: #### L [id number] #### [facility] CLIA [id number] [address] [place] [address] [place] CLINICAL HISTORY CONSULT REQUESTED Normal [facility] Comment on above: Order Comment: Speci men Type: FORMALIN-FIXED PARAFFIN-EMBEDDED TISSUE SPECIMEN Ordering Facility: [facility] Address: [address] [place], [place] [id number] Performed By: #### L [id number] #### [facility] CLIA [id number] [address] [place] [address] DIAGNOSIS COMMENT [facility] Comment on above: Order Comment: Speci men Type: FORMALIN-FIXED PARAFFIN-EMBEDDED TISSUE SPECIMEN Ordering Facility: [facility] Address: [address] [place], [place] [address] Result Comment: Than k you for allowing [...] do not hesitate to contact us at [phone] with questions or if additional follow-up information becomes available. This case was reviewed in conjunction with the GI pathology fellow, Luis Mccauley M.D. Performed By: #### L [id number] #### [facility] CLIA [id number] [address] [place] [address] FINAL DIAGNOSIS Normal [facility] Comment on above: Order Comment: Speci men Type: FORMALIN-FIXED PARAFFIN-EMBEDDED TISSUE SPECIMEN Ordering Facility: [facility] Address: [address] [place], [place] [address] Result Comment: Live r, biopsy (A1, special stains): - Steatohepatitis with patchy bridging fibrosis. - See comment. Performed By: #### L [id number] #### [facility] CLIA [id number] [address] [place] [address] [place] FINAL PERFORMING LAB Normal [facility] Comment on above: Order Comment: Speci men Type: FORMALIN-FIXED PARAFFIN-EMBEDDED TISSUE SPECIMEN Ordering Facility: [facility] Address: [address] [place], [place] [address] Result Comment: Diag nostic interpretation performed at [place] [address] CLIA# [id number] [employer] Director: Krunal Ferguson M.D. Performed By: #### L [id number] #### [facility] CLIA [id number] [address] [place] [address] [place] Activated partial thrombopla stin time (aPTT) in platelet poor plasma by coagulation aOrdered By: Forest Giordano on 12-06-2023 aPTT Coag (PPP) [Time] 28.6 s 25.1-36.5 [facility] Comment on above: A hematocrit value g reater than 55% may lead to inaccurate results in coagulation testing. Patients having hematocrit values >55% require a special collection tube for coagulation studies. Please contact the laboratory at [phone] guided biopsyon CT guided biopsy [facility] [place] [address] CT Scan Report Signed Patient: Dejah Dykes MR#: [id number] : 1970 Acct:[id number] Age/Sex: 53 / F ADM Date: 12/06/23 Loc: CT Room: Type: [facility] Attending Dr: Forest Giordano APRN Copies to: [...] Walton Jr., DGorgeOGorge12/06/2023 1:59 PM Dictation Location: [place] [address] Transcribed By: [facility] 12/06/23 1359 Dictated By: Brian Walton Jr, DO 12/06/23 1355 Signed By: 12/06/23 1359 Normal [facility] Coagulation Profileon 2023 aPTT Coag (Bld) [Time] 28.6 s Normal 25.1-36.5 [facility] Comment on above: Order Comment: STAT FOR BX Result Comment: A he matocrit value greater than 55% may lead to inaccurate results in coagulation testing. Patients having hematocrit values >55% require a special collection tube for coagulation studies. Please contact the laboratory at [phone] for redraw instructions. PERFORMED BY: [address] [address] PATHOLOGIST FIRE MARSHAL REFINERY LORRAINE DIETZ M.D. Performed By: #### P P, PLT #### [address] [address] [facility] INR in Platelet poor plasma by Coagulation assayOrdered By: Forest Giordano on 12-06-2023 INR Coag (PPP) [Relative time] 1.0 {INR} Normal [facility] Comment on above: INR Therapeutic Rang [...] Performed By: #### P P, PLT #### [facility] [address] [place] [address] Seb 12-06-2023 L Specimen: [id number] Received: 12/06/23 Status: NAKUL Sanchez Num: [id number] Spec Type: Surgical Subm Dr: Brian Walton Jr, Tissues: A Liver - Needle Biopsy (LFT LIVER, RANDOM BX) Procedures: Trichrome, Reticulum I, Iron, HE/3, Gross/Micro L5, CK 7, PAS - Hemat, PAS - Diastase Age/ Patient Sex Location Account Attending Physician Dejah Dykes 53/F CT [id number] Forest Giordano APRN SPEC NUM: [id number] RECD: 12/06/23 STATUS: NAKUL SANCHEZ NUM: [id number] LEONEL: 12/06/[address]: Brian Walton Jr, DO ENTERED: 12/06/23 [facility] DR: Forest Giordano APRN SPEC TYPE: Surgical DEPT: S ORDERED: Trichrome, Reticulum I, Iron, HE/3, Gross/Micro L5, CK 7, PAS - Hemat, PAS - Diastase ORDERED: Trichrome, Reticulum I, Iron, HE/3, Gross/Micro L5, CK 7, PAS - Hemat, PAS - Diastase Supplemental Report Addendum 1 Entered: 12/25/2374 Supplemental for findings of consultation report from [facility]: FINAL DIAGNOSIS: -Steatohepatitis with patchy bridging [...] the needle core biopsy of note Specimen: [id number] Received: 12/06/23 Status: NAKUL Sanchez Num: [id number] Spec Type: Surgical Subm Dr: Brian Walton Jr, Tissues: A Liver - Needle Biopsy (LFT LIVER, RANDOM BX) Procedures: Trichrome, Reticulum I, Iron, HE/3, Gross/Micro L5, CK 7, PAS - Hemat, PAS - Diastase Patient: Dejah Dykes [id number] (Continued) Specimen: [id number] Received: 12/06/23 (Continued) Supplemental Report (Continued) Signed (signature on file) Emily Ramesh MD 12/12/23 1143 Specimen: [id number] Received: 12/06/23 Status: NAKUL Laura Num: [id number] Spec Type: Surgical Subm Dr: Brian Walton Jr, DO Tissues: A Liver - Needle Biopsy (LFT LIVER, RANDOM BX) Procedures: Trichrome, Reticulum I, Iron, HE/3, Gross/Micro L5, CK 7, PAS - Hemat, PAS - Diastase Patient: Dejah Dykes [id number] (Continued) Specimen: [id number] Received: 12/06/23 (Continued) Supplemental Report (Continued) Addendum [...] s (more content not included)... Normal [facility] Platelets [#/volume] in Bloo d by Automated countOrdered By: Forest Giordano on 12-06-2023 Platelets (Bld) [#/Vol] 211 10*3/uL Normal 150-450 [facility] Comment on above: Order Comment: STAT FOR BX Result Comment: PERF ORMED BY: [place] [address] PATHOLOGIST FIRE MARSHAL REFINERY LORRAINE DIETZ M.D. Performed By: #### P P, PLT #### [facility] [address] [place], [place] [address] [facility] Prothrombin time (PT)Ordered By: Forest Giordano on 12-06-2023 PT Coag (PPP) [Time] 11.3 s Normal 9.0-12.9 [facility] Comment on above: A hematocrit value g reater than 55% may lead to inaccurate results in coagulation testing. Patients having hematocrit values >55% require a special collection tube for coagulation studies. Please contact the laboratory at [phone] for redraw instructions. Order Comment: STAT FOR BX Result Comment: A he matocrit value greater than 55% may lead to inaccurate results in coagulation testing. Patients having hematocrit values >55% require a special collection tube for coagulation studies. Please contact the laboratory at [phone] for redraw instructions. Performed By: #### P P, PLT #### [facility] [address] [place], [place] [address] [facility] CNOVon 11-11-2023 CNOV Office Visit (STED) -- DEJAH DYKES ([id number]) 1970 F Date Time Provider Department 11/11/23 9:20 AM ALFREDO CRUZ STEElaine During your visit today, we recorded the following information about you: Pulse Blood pressure Weight Height 75/minute 138/81 116 kg 1.626 m Alfredo Cruz MD 11/11/2023 9:28 AM Signed [facility] FOLLOW-UP VISIT Last visit: 09/24/2023 HISTORY OF PRESENT ILLNESS: Dejahgeorgina Dykes is a 53 year old female with history of class 3 obesity with co-morbidities of pre-DM, HTN, SAIMA and OA who presents today for follow-up on weight management. Current weight loss medication: none Side effects of treatment: n/a Patient is here today to discuss about bariatric surgery. 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 Registration to the weight loss program will also be done online. [email or web address] Alternatively, to schedule appointment, please call [phone] Order Specific Question: Have you discussed weight management with your patient? Answer: Yes Order Specific Question: Are you requesting assessment for possible Bariatric Surgery for your patient? Answer: Yes Order Specific Question: Does consulting provider have [facility] Epic access? Answer: Yes Follow up PRN Signed: Alfredo Cruz MD Endocrinology and Metabolism [place] [facility] Alfredo Cruz MD 11/11/2023 9:20 AM Signed BARIATRIC REFERRAL The first step for considering bariatric (weight loss) surgery at [facility] is to watch the online seminar on the following website. Registration to the weight loss program will also be done online. [email or web address] Links: [email or web address]=1*1ly 7- el6*_ga*[id number] [id number]*_[id number]* [id number] (more content not included)... Normal [facility] Consent for Procedure/Surger yon 10-30-2023 Consent for Procedure/Surgery [id number]#1.00TIFF Normal [facility] Consent for Treatmenton 10-04 Consent for Treatment [id number]#1.00TIFF Normal [facility] Discharge Instructionson Discharge Instructions [id number]#1.00TIFF Normal [facility] IntraOperative Documentson 0 10-30-2023 IntraOperative Documents [id number]#1.00TIFF Normal [facility] IntraOperative Documents [id number]#1.00TIFF Normal [facility] Main OR Intraoperative Recor don 10-30-2023 Main OR Intraoperative Record IntraOp Document Type FTPM Summary Primary Physician: Hu Davis DO Finalized Date/Time: 10/30/23 11:28:27 Pt. Name: DEJAH DYKES/Sex: 1970 Female Med Rec #: [id number] Physician: Hu Davis DO Financial #: [id number] Pt. Type: P Room/Bed: / Admit/Disch: 10/30/23 09:52:23 - Institution: Case Times FTPM Entry 1 Patient Times In Room 10/30/23 11:17:00 Out Room 10/30/23 11:29:00 Procedure Times Start 10/30/23 11:20:00 Stop 10/30/23 11:28:00 Anesthesia Times Last Modified By: Mac DOHERTY, Melinda Little 10/30/23 11:28:22 Case Attendance FTPM Entry 1 Entry 2 Entry 3 Case Attendee Hu Davis DO, RN, Melinda Adames RN, [place] Luda Role Performed Surgeon - Primary Station Cleaning Porter - Primary Scrub - Primary Time In 10/30/23 11:17:00 10/30/23 11:17:00 10/30/23 11:17:00 Time Out 10/30/23 11:29:00 10/30/23 11:29:00 10/30/23 11:29:00 Procedure TRANSFORAMINAL EPIDURAL TRANSFORAMINAL EPIDURAL TRANSFORAMINAL EPIDURAL STEROID INJECTIO(Right) STEROID INJECTIO(Right) STEROID INJECTIO(Right) Comments Last Modified By: Melinda Watts RN, RN, Melinda Keenan RN 10/30/23 11:28:23 10/30/23 11:28:23 10/30/23 11:28:23 Entry 4 Case Attendee Dean Hayden Role Performed Line Walker Time In 10/30/23 11:17:00 Time Out 10/30/23 [...] and tissue Entry 1 Skin Integrity Intact, [place], Warm, and Skin Abnormality No Dry Outcomes [...] Points C (more content not included)... Normal [facility] Main OR Preoperative Recordo n 10-30-2023 Main OR Preoperative Record Holding Area Document Type FT Summary Primary Physician: Hu Davis DO Finalized Date/Time: 10/30/23 10:19:44 Pt. Name: SHEY DYKESGEORGINA Elizondo/Sex: 1970 Female Med Rec #: [id number] Physician: Hu Davis DO Financial #: [id number] Pt. Type: P Room/Bed: / Admit/Disch: 10/30/23 [...] By: Krystina Madden RN 10/30/23 10:19 Normal [facility] Insurance Correspondence Off ice10-29-2023 Insurance Correspondence Office [id number]#2.00TIFF Normal [facility] Patient Correspondenceon Patient Correspondence [id number]#1.00TIFF [facility] XR knee RT 3V - NOT FOR ER U Raoul 10-24-2023 XR knee RT 3V - NOT FOR ER USE [facility] Main [place] [address] [place] [address] XRay Report Signed Patient: Dejah Dykes MR#: [id number] : 1970 Acct:[id number] Age/Sex: 53 / F ADM Date: 10/24/23 Loc: [facility] Room: Type: [facility] Attending Dr: Jorge Alberto Rowe MD Copies [...] Ranjeet Zheng M.D.10/24/2023 5:06 PM Dictation Location: [place] [address] Transcribed By: [facility] 10/24/231705 Dictated By: Ranjeet Zheng DO 10/24/231704 Signed By: 10/24/231705 Normal [facility] Insurance Correspondence Off iceon 10-18-2023 Insurance Correspondence Office [id number]#1.00TIFF Normal [facility] Consent for Treatmenton 10-03 Consent for Treatment [id number]#1.00TIFF Normal [facility] Consultation Noteon 10-17-19 Consultation Note Patient [...] for this as well as has a blocking machine operator and is working on possibility of autoimmune [...] daily, we also encouraged follow-up with her blocking machine operator to discuss possibility of any autoimmune reasons [...] with any questions or concerns that arise. [facility] Comment on above: Result Comment: Elec tronically Signed By: Hu Davis DO\.br\Date and Time Signed: 10/17/23 09:22 EDT HIPAA Forms Officeon 024 HIPAA Forms Office [id number]#1.00TIFF [facility] Legal Correspondence Officeo n 10-17-2023 Legal Correspondence Office [id number]#1.00TIFF [facility] Legal Correspondence Office [id number]#1.00TIFF [facility] Office/Clinic Note-Physician on 10-17-2023 Office/Clinic Note-Physician [id number]#1.00TIFF [facility] Patient Correspondenceon Patient Correspondence [id number]#1.00TIFF [facility] Patient Correspondence [id number]#1.00TIFF Normal [facility] Patient Correspondence [id number]#1.00TIFF Normal [facility] Patient Correspondence [id number]#1.00TIFF Normal [facility] Patient Correspondence [id number]#1.00TIFF Normal [facility] Patient History Officeon Patient History Office [id number]#1.00TIFF Normal [facility] PT - Orderson 10-14-2023 PT - Orders [id number]#1.00TIFF Normal [facility] Reportability Response - Pub [facility] Healthon 10-01-2023 Reportability Response - Public Health {[id number]-a [id number]-c8}XML Normal [facility] Consent for Treatmenton 09-06 Consent for Treatment [id number]#1.00TIFF Normal [facility] Discharge Instructionson Discharge Instructions [id number]#1.00TIFF Normal [facility] ED Clinical Summaryon 2023 ED Clinical Summary (Inserted Image. Carrie ble to display) [place] [id number] ED Clinical Summary Person Information Name: [facility] Age[facility] 53 Years : 1970 Sex: Female Language: Romanian PCP: Lenora ASNTOS PA-C Marital Status: MRN: Visit Id: Visit [...] 09/28/2023 15:53:43 09/28/2023 15:53:43 09/28/2023 15:53:43 ADDRESS: [facility] [place] [id number] PHYS DOC NOTES: MEDICAL INFORMATION: Prescriptions Given: [...] With: Address: When: TOM RENEE, Lenora Little, [facility] [address] [place] [address] In 3 days 10/01/2023 DIAGNOSIS: 1:COVID Normal [facility] ED Note-Physicianon 09-28-19 ED Note-Physician Basic [...] the nursing notes. Previous records reviewed: Reviewed territory account representative note 09/12/2023. Patient seen for hypertension. Noted [...] RENEE, RADHA Gaxiola In 3 days 10/01/2023 [place] [id number]- Additional Instructions: Additional Instructions: Call the office [...] made to ensure accuracy, however, inadvertently computerized water pipe installer management be present. Problem List/Past Medical History Ongoing Acne rosacea Class 3 severe obesity with body mass index (BMI) of 40.0 to 44.9 in adult Frequent UTI Influenza vaccination up to date Kidney stones Non-tobacco user Osteochondritis dissecans Urine frequency Historical DVT Kidn (more content not included)... Normal [facility] Comment on above: Result Comment: Elec tronically Signed By: Lara Reyes PA-C\.br\Date and Time Signed: 09/28/23 15:38 EST\.br\Electronically Co-Signed By: Cody Young M.D.\.br\Date and Time Co-Signed: 09/28/23 19:52 EST ED Patient Summaryon 024 ED Patient Summary (Inserted Image. Carrie ble to display) [address] [address] Patient Discharge Instructions Person Information Name: DEJAH DYKES Age: 53 Years Arrival Date: 09/28/2023 14:44:25 Discharge Diagnosis: 1:COVID Primary Care Physician: Lenora SANTOS PA-C Provider Information Primary Provider: Cody Young M.D. Advanced Manager Clinical Research:Lara Reyes PA-C The exam and treatment you received in the Emergency Department were for an urgent problem and are not intended as complete care. It is important that you follow up with a doctor, nurse practitioner, or physician?s accountant assistant for ongoing care. If your symptoms [...] Instructions: With: Address: When: Lenora SANTOS PA-C, [address] [address] In 3 days 10/01/2023 In the event that this physician does not participate in your insurance network, please consult with your insurance company to find a nearby participating provider. Patient Education Materials: COVID-19 A MESSAGE TO ALL PATIENTS REGARDING OPIOIDS PRESCRIPTION OPIOIDS: WHAT YOU NEED TO KNOW Prescription opioids can be used to help relieve icmysvcd-ab-yvrsnr pain and are often prescribed following a [...] be struggling with addiction, tell your health critical care transport nurse and ask for guidance or call [facility]S National Helpline at 1-154-762-VUJX. m Source: Department of Health an (more content not included)... Normal [facility] Influenza A&B Agon Influenzae A Ag Negative Normal Negative [facility] Comment on above: Performed By: #### 2 [id number], [id number] ####[facility] [address] [place] [address] Influenzae B Ag Negative Normal Negative [facility] Comment on above: Result Comment: Test sensitivity and specificity vary for age group, specimen type, antigen types, and prevalence of disease. Test results must be evaluated in conjunction with other clinical data available to the physician. Individuals who received nasally administered Influenza A vaccine may have positive test results up to 3 days after vaccination. Performed By: #### 2 [id number], [id number] ####[facility] [address] [place] [address] MICRO OTHER TESTSOrdered By: Rajni Llanes on 09-28-2023 Influenzae A Ag Negative (09/28/23 3:07 PM) Normal Negative [facility] Man [place]ero Influenzae B Ag Negative 1 (09/28/23 3:07 PM) Normal Negative [facility] [place] Comment on above: Interpretive Data: [...] NEG Ctl Pass (09/28/23 3:07 PM) Normal FT [place] Rapid COV Int POS Ctl Pass (09/28/23 3:07 PM) Normal FT [place] SARS-CoV+SARS-CoV-2 (COVID-19) Ag IA.rapid Ql (Resp) Detected 2 *ABN* (09/28/23 3:07 PM) Invalid Interpretation Code Not Detected [facility] Comment on above: Interpretive Data: Alhaji dorsey [employer] System for Rapid Detection of SARS-CoV-2 is [...] Int NEG Ctl Pass Normal Fis her [facility] Comment on above: Performed By: #### 2 [id number], [id number] ####[facility] [address] [place] [address] Rapid COV Int POS Ctl Pass Normal Fis her [facility] Comment on above: Performed By: #### 2 [id number] ####[facility] [address] [place] [address] SARS-CoV+SARS-CoV-2 (COVID-19) Ag IA.rapid Ql (Resp) Detected Abnormal Not Detected [facility] Comment on above: Result Comment: The [employer] System for Rapid Detection of SARS-CoV-2 is [...] For in vitro diagnostic use. In the [facility], only for use under an Emergency Use [...] or revoked sooner. Performed By: #### 2 [id number], [id number] ####[facility] [address] [place] [address] Reportability Response - Pub lic Healthon 09-28-2023 Reportability Response - Public Health {[id number]-fe-8 3-um-[id number]-ae-f6}XML Normal [facility] REYNALDO Reflex Testingon 024 REYNALDO with Reflex Positive Critically abnormal Negative [facility] Comment on above: Performed By: #### F ER, HEPATIC, FE and TIBC, PT, LIPID, CBC ####[place] [address] [address]#### HBCAB, HBSAG, ALPHA PHEN, REYNALDO RFX ADD ON, HBSAB, CERULOP, SMAB, HCV RX PCR ####[facility] , Anti-Centromere B Antibodies <0.2 Normal 0.0-0.9 [facility] Comment on above: Performed By: #### F ER, HEPATIC, FE and TIBC, PT, LIPID, CBC ####[place] [address] [address]#### HBCAB, HBSAG, ALPHA PHEN, REYNALDO RFX ADD ON, HBSAB, CERULOP, SMAB, HCV RX PCR ####[facility] , Anti-dsDNA(DBL)Ab 1 Normal 0-9 [facility] Comment on above: Result Comment: Nega tive <5 Equivocal 5 - 9 Positive >9 Performed By: #### F ER, HEPATIC, FE and TIBC, PT, LIPID, CBC ####[facility]#### HBCAB, HBSAG, ALPHA PHEN, REYNALDO RFX ADD ON, HBSAB, CERULOP, SMAB, HCV RX PCR ####[facility] , Anti-COMMERCIAL CARPENTER <0.2 Normal 0.0-0.9 [facility] Comment on above: Performed By: #### F ER, HEPATIC, FE and TIBC, PT, LIPID, CBC ####[address]#### HBCAB, HBSAG, ALPHA PHEN, REYNALDO RFX ADD ON, HBSAB, CERULOP, SMAB, HCV RX PCR ####[facility] , Anti-Llanes Antibodies <0.2 Normal 0.0-0.9 [facility] Comment on above: Performed By: #### F ER, HEPATIC, FE and TIBC, PT, LIPID, CBC ####[address]#### HBCAB, HBSAG, ALPHA PHEN, REYNALDO RFX ADD ON, HBSAB, CERULOP, SMAB, HCV RX PCR ####[facility] , Chromatin Antibody <0.2 Normal 0.0-0.9 [facility] Comment on above: Performed By: #### F ER, HEPATIC, FE and TIBC, PT, LIPID, CBC ####[address]#### HBCAB, HBSAG, ALPHA PHEN, REYNALDO RFX ADD ON, HBSAB, CERULOP, SMAB, HCV RX PCR ####[facility] , SHEY-1 Antibody <0.2 Normal 0.0-0.9 [facility] Comment on above: Performed By: #### F ER, HEPATIC, FE and TIBC, PT, LIPID, CBC ####[place] [address] [place]#### HBCAB, HBSAG, ALPHA PHEN, REYNALDO RFX ADD ON, HBSAB, CERULOP, SMAB, HCV RX PCR ####[facility] , Scleroderma 70 Antibodies >8.0 High 0.0-0.9 [facility] Comment on above: Performed By: #### F ER, HEPATIC, FE and TIBC, PT, LIPID, CBC ####[facility] [address]#### HBCAB, HBSAG, ALPHA PHEN, REYNALDO RFX ADD ON, HBSAB, CERULOP, SMAB, HCV RX PCR ####[facility] , See Below: Normal . [facility] Comment on above: Result Comment: [...] Sm (anti-Llanes) SLE 15 - 30% --------- COMMERCIAL CARPENTER Mixed Connective Tissue Disease 95% (U1 nRNP, SLE 30 - 50% anti-ribonucleoprotein) Polymyositis and/or Dermatomyositis 20% --------- Scl-70 (antiDNA Scleroderma (diffuse) 20 - 35% topoisomerase) Crest 13% --------- Shey-1 Polymyositis and/or Dermatomyositis 20 - 40% --------- Centromere B Scleroderma - Crest variant 80% Performed at: - [facility] [address] [place], [place] [id number] Analysis Engineer: Dhruv Schreiber PhD, Phone: [phone] Performed By: #### F ER, HEPATIC, FE and TIBC, PT, LIPID, CBC ####[facility] [address] [place] [address] [facility]#### HBCAB, HBSAG, ALPHA PHEN, REYNALDO RFX ADD ON, HBSAB, CERULOP, SMAB, HCV RX PCR ####[facility] , SS-A/Ro Sjogrens Antibody <0.2 Normal 0.0-0.9 [facility] Comment on above: Performed By: #### F ER, HEPATIC, FE and TIBC, PT, LIPID, CBC ####[facility] [address]#### HBCAB, HBSAG, ALPHA PHEN, RENYALDO RFX ADD ON, HBSAB, CERULOP, SMAB, HCV RX PCR ####[facility] , SS-B/La Sjogrens Antibody 0.5 Normal 0.0-0.9 [facility] Comment on above: Performed By: #### F ER, HEPATIC, FE and TIBC, PT, LIPID, CBC ####[facility]#### HBCAB, HBSAG, ALPHA PHEN, REYNALDO RFX ADD ON, HBSAB, CERULOP, SMAB, HCV RX PCR ####[facility] , Actin smooth muscle IgG Ab [ Units/volume] in SerumOrdered By: Forest Giordano on 09-25-2023 Actin smooth muscle IgG Qn (S) 129 Units 0-19 [facility] Comment on above: Negative 0 - 19 Weak positive 20 - 30 Moderate to strong positive >30 Actin Antibodies are found in 52-85% of patients with autoimmune hepatitis or chronic active hepatitis and in 22% of patients with primary biliary cirrhosis.Performed at: [place] [id number] Director: Dhruv Schreiber PhD, Phone: [phone] Alanine aminotransferase [En zymatic activity/volume] in Serum or PlasmaOrdered By: Forest Giordano on 09-25-2023 ALT [Catalytic activity/Vol] 51 U/L Normal 7-52 [facility] Comment on above: Performed By: #### F ER, HEPATIC, FE and TIBC, PT, LIPID, CBC ####[facility]#### HBCAB, HBSAG, ALPHA PHEN, REYNALDO RFX ADD ON, HBSAB, CERULOP, SMAB, HCV RX PCR ####[facility] , Albumin [Mass/volume] in Ser um or Plasma by Bromocresol green (BCG) dye binding methoOrdered By: Forest Giordano on 09-25-2023 Albumin BCG dye [Mass/Vol] 4.2 g/dL 3.5-5.7 [facility] Alkaline phosphatase [Enzyma tic activity/volume] in Serum or PlasmaOrdered By: Forest Giordano on 09-25-2023 ALP [Catalytic activity/Vol] 90 U/L Normal 34-104 [facility] Comment on above: Performed By: #### F ER, HEPATIC, FE and TIBC, PT, LIPID, CBC ####[facility] [address]#### HBCAB, HBSAG, ALPHA PHEN, REYNALDO RFX ADD ON, HBSAB, CERULOP, SMAB, HCV RX PCR ####[facility] , Kbcfd-0-Wwzlmtosmto Phenotyp manuel 09-25-2023 Alpha 1 Anti-Trypsin 155 mg/dL Normal 101-187 [facility] Comment on above: Performed By: #### F ER, HEPATIC, FE and TIBC, PT, LIPID, CBC ####[facility] [address]#### HBCAB, HBSAG, ALPHA PHEN, REYNALDO RFX ADD ON, HBSAB, CERULOP, SMAB, HCV RX PCR ####[facility] , Phenotype (P1) MM Normal . [facility] Comment on above: Result Comment: [...] used to confirm phenotype. Performed at: - [address] [id number] Analysis Engineer: Dhruv Schreiber PhD, Phone: [phone] Performed at: - [address] [id number] Analysis Engineer: Leyla Britt MD, Phone: [phone] Performed By: #### F ER, HEPATIC, FE and TIBC, PT, LIPID, CBC ####[facility]#### HBCAB, HBSAG, ALPHA PHEN, REYNALDO RFX ADD ON, HBSAB, CERULOP, SMAB, HCV RX PCR ####[facility] , Aspartate aminotransferase [ Enzymatic activity/volume] in Serum or PlasmaOrdered By: Forest Giordano on 09-25-2023 AST [Catalytic activity/Vol] 44 U/L High 13-39 [facility] Comment on above: Performed By: #### F ER, HEPATIC, FE and TIBC, PT, LIPID, CBC ####[place] [address] [place]#### HBCAB, HBSAG, ALPHA PHEN, REYNALDO RFX ADD ON, HBSAB, CERULOP, SMAB, HCV RX PCR ####[facility] , Automated basophil %Ordered By: Forest Giordano on 09-25-2023 Basophils/100 WBC (Bld) 0.8 % Normal . [facility] Comment on above: Performed By: #### F ER, HEPATIC, FE and TIBC, PT, LIPID, CBC ####[facility] [place] [address] [place]#### HBCAB, HBSAG, ALPHA PHEN, REYNALDO RFX ADD ON, HBSAB, CERULOP, SMAB, HCV RX PCR ####[facility] , Automated basophil countOrde red By: Forest Giordano on 09-25-2023 Basophils (Bld) [#/Vol] 0.1 10*3/uL Normal 0.0-0.2 [facility] Comment on above: Result Comment: PERF ORMED BY: [facility] [address] [place] [address] PATHOLOGIST FIRE MARSHAL REFINERY LORRAINE DIETZ M.D. Performed By: #### F ER, HEPATIC, FE and TIBC, PT, LIPID, CBC ####[address]#### HBCAB, HBSAG, ALPHA PHEN, REYNALDO RFX ADD ON, HBSAB, CERULOP, SMAB, HCV RX PCR ####[facility] , Automated blood monocyte cou ntOrdered By: Forest Giordano on 09-25-2023 Monocytes (Bld) [#/Vol] 0.5 10*3/uL Normal 0.0-0.8 [facility] Comment on above: Performed By: #### F ER, HEPATIC, FE and TIBC, PT, LIPID, CBC ####[address]#### HBCAB, HBSAG, ALPHA PHEN, REYNALDO RFX ADD ON, HBSAB, CERULOP, SMAB, HCV RX PCR ####[facility] , Automated eosinophil %Ordere d By: Forest Giordano on 09-25-2023 Eosinophils/100 WBC (Bld) 2.1 % Normal . [facility] Comment on above: Performed By: #### F ER, HEPATIC, FE and TIBC, PT, LIPID, CBC ####[address]#### HBCAB, HBSAG, ALPHA PHEN, REYNALDO RFX ADD ON, HBSAB, CERULOP, SMAB, HCV RX PCR ####[facility] , Automated eosinophil countOr dered By: Forest Giordano on 09-25-2023 Eosinophils (Bld) [#/Vol] 0.2 10*3/uL Normal 0.0-0.45 [facility] Comment on above: Performed By: #### F ER, HEPATIC, FE and TIBC, PT, LIPID, CBC ####[facility] [place] [address] [place]#### HBCAB, HBSAG, ALPHA PHEN, REYNALDO RFX ADD ON, HBSAB, CERULOP, SMAB, HCV RX PCR ####[facility] , Automated monocyte %Ordered By: Forest Giordano on 09-25-2023 Monocytes/100 WBC (Bld) 6.8 % Normal . [facility] Comment on above: Performed By: #### F ER, HEPATIC, FE and TIBC, PT, LIPID, CBC ####[address]#### HBCAB, HBSAG, ALPHA PHEN, REYNALDO RFX ADD ON, HBSAB, CERULOP, SMAB, HCV RX PCR ####[facility] , Automated neutrophil %Ordere d By: Forest Giordano on 09-25-2023 Neutrophils/100 WBC (Bld) 47.6 % Normal . [facility] Comment on above: Performed By: #### F ER, HEPATIC, FE and TIBC, PT, LIPID, CBC ####[address]#### HBCAB, HBSAG, ALPHA PHEN, REYNALDO RFX ADD ON, HBSAB, CERULOP, SMAB, HCV RX PCR ####[facility] , Bilirubin.direct [Mass/volum e] in Serum or PlasmaOrdered By: Forest Giordano on 09-25-2023 Bilirubin.direct [Mass/Vol] 0.10 mg/dL 0.03-0.18 [facility] Bilirubin.total [Mass/volume ] in Serum or PlasmaOrdered By: Forest Giordano on 09-25-2023 Bilirubin [Mass/Vol] 0.6 mg/dL Normal 0.3-1.0 [facility] Comment on above: Performed By: #### F ER, HEPATIC, FE and TIBC, PT, LIPID, CBC ####[place] [address] [place]#### HBCAB, HBSAG, ALPHA PHEN, REYNALDO RFX ADD ON, HBSAB, CERULOP, SMAB, HCV RX PCR ####[facility] , Ceruloplasminon 09-25-2023 Ceruloplasmin 22.9 mg/dL Normal 19.0-39.0 [facility] Comment on above: Result Comment: Perf ormed at: - [facility] [address] [id number] Analysis Engineer: Dhruv Schreiber PhD, Phone: [phone] PERFORMED BY: [facility] [address] [place] [address] PATHOLOGIST FIRE MARSHAL REFINERY LORRAINE DIETZ M.D. Performed By: #### F ER, HEPATIC, FE and TIBC, PT, LIPID, CBC ####[facility] [id number]#### HBCAB, HBSAG, ALPHA PHEN, REYNALDO RFX ADD ON, HBSAB, CERULOP, SMAB, HCV RX PCR ####[facility] , Cholesterol [Mass/volume] in Serum or PlasmaOrdered By: Forest Giordano on 09-25-2023 Cholesterol [Mass/Vol] 199 mg/dL Normal 140-200 [facility] Comment on above: Chol less than 200 m g/dl low riskChol 201-239 mg/dl borderline riskChol 240 mg/dl and greater high risk Result Comment: Chol less than 200 mg/dl low risk Chol 201-239 mg/dl borderline risk Chol 240 mg/dl and greater high risk Performed By: #### F ER, HEPATIC, FE and TIBC, PT, LIPID, CBC ####[facility] [id number] [place] [address] [place]#### HBCAB, HBSAG, ALPHA PHEN, REYNALDO RFX ADD ON, HBSAB, CERULOP, SMAB, HCV RX PCR ####[facility] , Cholesterol in LDL Calc [Mas s/Vol]Ordered By: Forest Giordano on 09-25-2023 Cholesterol in LDL [Mass/Vol] 122 mg/dL 0-100 [facility] Comment on above: LDL ATP III CLASSIFI CATIONLDL less than 100 mg/dL OptimalLDL 100-129 mg/dL Near or above optimalLDL 130-159 mg/dL Borderline highLDL 160-189 mg/dL HighLDL greater than 189 mg/dL Very high Cholesterol in VLDL Calc [Ma ss/Vol]Ordered By: Forest Giordano on 09-25-2023 Cholesterol in VLDL [Mass/Vol] 17 mg/dL [facility] Complete Blood Count Auto Di ffon 09-25-2023 Mean Corpuscular HGB Conc 34.2 g/dL Normal 32.0-35.0 [facility] Comment on above: Performed By: #### F ER, HEPATIC, FE and TIBC, PT, LIPID, CBC ####[facility] [id number] [place] [address] [place]#### HBCAB, HBSAG, ALPHA PHEN, REYNALDO RFX ADD ON, HBSAB, CERULOP, SMAB, HCV RX PCR ####[facility] , NRBC% 0.1 /100{WBC} Normal 0-0.5 [facility] Comment on above: Performed By: #### F ER, HEPATIC, FE and TIBC, PT, LIPID, CBC ####[facility] [place] [address] [place]#### HBCAB, HBSAG, ALPHA PHEN, REYNALDO RFX ADD ON, HBSAB, CERULOP, SMAB, HCV RX PCR ####[facility] , DNA double strand Ab [Units/ volume] in SerumOrdered By: Forest Giordano on 09-25-2023 DNA double strand Ab Qn (S) 1 [IU]/mL 0-9 [facility] Comment on above: Negative <5 Equivoca l 5 - 9 Positive >9 Erythrocyte distribution wid th [Ratio] by Automated countOrdered By: Forest Giordano on 09-25-2023 Erythrocyte distribution width (RBC) [Ratio] 13.8 % Normal 11.9-15.3 [facility] Comment on above: Performed By: #### F ER, HEPATIC, FE and TIBC, PT, LIPID, CBC ####[facility] [id number] [place] [address] [place]#### HBCAB, HBSAG, ALPHA PHEN, REYNALDO RFX ADD ON, HBSAB, CERULOP, SMAB, HCV RX PCR ####[facility] , Erythrocytes [#/volume] in B lood by Automated countOrdered By: Forest Giordano on 09-25-2023 RBC (Bld) [#/Vol] 4.81 10*6/uL Normal 3.60-5.00 [facility] Comment on above: Performed By: #### F ER, HEPATIC, FE and TIBC, PT, LIPID, CBC ####[facility]#### HBCAB, HBSAG, ALPHA PHEN, REYNALDO RFX ADD ON, HBSAB, CERULOP, SMAB, HCV RX PCR ####[facility] , Ferritin [Mass/volume] in Se rum or PlasmaOrdered By: Forest Giordano on 09-25-2023 Ferritin [Mass/Vol] 153.5 ng/mL Normal 11.0-306.8 [facility] Comment on above: Performed By: #### F ER, HEPATIC, FE and TIBC, PT, LIPID, CBC ####[address]#### HBCAB, HBSAG, ALPHA PHEN, REYNALDO RFX ADD ON, HBSAB, CERULOP, SMAB, HCV RX PCR ####[facility] , Hematocrit [Volume Fraction] of Blood by Automated countOrdered By: Forest Giordano on 09-25-2023 Hematocrit (Bld) [Volume fraction] 43.4 % Normal 34.0-46.4 [facility] Comment on above: Performed By: #### F ER, HEPATIC, FE and TIBC, PT, LIPID, CBC ####[place] [address] [place]#### HBCAB, HBSAG, ALPHA PHEN, REYNALDO RFX ADD ON, HBSAB, CERULOP, SMAB, HCV RX PCR ####[facility] , Hemoglobin [Mass/volume] in BloodOrdered By: Forest Giordano on 09-25-2023 Hemoglobin (Bld) [Mass/Vol] 14.9 g/dL Normal 11.8-15.4 [facility] Comment on above: Performed By: #### F ER, HEPATIC, FE and TIBC, PT, LIPID, CBC ####[place] [address] [address]#### HBCAB, HBSAG, ALPHA PHEN, REYNALDO RFX ADD ON, HBSAB, CERULOP, SMAB, HCV RX PCR ####[facility] , Hep C Ab wRfx to Qnt PCRon 0 09-25-2023 Hepatitis C Virus Antibody Non-Reactive Normal Non Reactive [facility] Comment on above: Performed By: #### F ER, HEPATIC, FE and TIBC, PT, LIPID, CBC ####[place] [address] [address]#### HBCAB, HBSAG, ALPHA PHEN, REYNALDO RFX ADD ON, HBSAB, CERULOP, SMAB, HCV RX PCR ####[facility] , Interpretation Hepatitis C Normal . [facility] Comment on above: Result Comment: Not infected with HCV unless early or acute infection is suspected (which may be delayed in an immunocompromised individual), or other evidence exists to indicate HCV infection. Performed By: #### F ER, HEPATIC, FE and TIBC, PT, LIPID, CBC ####[address]#### HBCAB, HBSAG, ALPHA PHEN, REYNALDO RFX ADD ON, HBSAB, CERULOP, SMAB, HCV RX PCR ####[facility] , Hepatic Panelon 09-25-2023 Albumin [Mass/Vol] 4.2 g/dL Normal 3.5-5.7 [facility] Comment on above: Performed By: #### F ER, HEPATIC, FE and TIBC, PT, LIPID, CBC ####[address]#### HBCAB, HBSAG, ALPHA PHEN, REYNALDO RFX ADD ON, HBSAB, CERULOP, SMAB, HCV RX PCR ####[facility] , Bilirubin,Indirect 0.5 mg/dL Normal [facility] Comment on above: Performed By: #### F ER, HEPATIC, FE and TIBC, PT, LIPID, CBC ####[place] [address] [address]#### HBCAB, HBSAG, ALPHA PHEN, REYNALDO RFX ADD ON, HBSAB, CERULOP, SMAB, HCV RX PCR ####[facility] , Bilirubin.indirect [Mass/Vol] 0.10 mg/dL Normal 0.03-0.18 [facility] Comment on above: Performed By: #### F ER, HEPATIC, FE and TIBC, PT, LIPID, CBC ####[place] [address] [address]#### HBCAB, HBSAG, ALPHA PHEN, REYNALDO RFX ADD ON, HBSAB, CERULOP, SMAB, HCV RX PCR ####[facility] , Hepatitis B Core Antibodyon 09-25-2023 Hepatitis B Core Antibody Negative Normal Negative [facility] Comment on above: Result Comment: Perf ormed at: - [facility] [place] [id number] Analysis Engineer: Dhruv Schreiber PhD, Phone: [phone] Performed By: #### F ER, HEPATIC, FE and TIBC, PT, LIPID, CBC ####[address]#### HBCAB, HBSAG, ALPHA PHEN, REYNALDO RFX ADD ON, HBSAB, CERULOP, SMAB, HCV RX PCR ####[facility] , Hepatitis B Surface Antibody on 09-25-2023 Hepatitis B Surface Antibody Non-Reactive Normal . [facility] Comment on above: Result Comment: Non Reactive: Inconsistent with immunity, less than 10 mIU/mL Reactive: Consistent with immunity, greater than 9.9 mIU/mL Performed By: #### F ER, HEPATIC, FE and TIBC, PT, LIPID, CBC ####[address] [place] [address] [facility]#### HBCAB, HBSAG, ALPHA PHEN, REYNALDO RFX ADD ON, HBSAB, CERULOP, SMAB, HCV RX PCR ####[facility] , Hepatitis B Surface Antigeno n 09-25-2023 HBsAg Screen Negative Normal Negative [facility] Comment on above: Result Comment: PERF ORMED BY: [facility] [address] [place] [id number] PATHOLOGIST FIRE MARSHAL REFINERY LORRAINE DIETZ M.D. Performed By: #### F ER, HEPATIC, FE and TIBC, PT, LIPID, CBC ####[place] [address] [place] [id number] [facility]#### HBCAB, HBSAG, ALPHA PHEN, REYNALDO RFX ADD ON, HBSAB, CERULOP, SMAB, HCV RX PCR ####[facility] , Hepatitis B virus surface Ab [Presence] in SerumOrdered By: Forest Giordano on 09-25-2023 HBV surface Ab Ql (S) Non-Reactive . [facility] Comment on above: Non Reactive: Incons istent with immunity, less than 10 mIU/mL Reactive: Consistent with immunity, greater than 9.9 mIU/mL Hepatitis B virus surface Ag [Presence] in Serum or Plasma by ImmunoassayOrdered By: Forest Giordano on 09-25-2023 HBV surface Ag IA Ql Negative Negative [facility] Hepatitis C virus IgG Ab [Pr esence] in Serum or Plasma by ImmunoassayOrdered By: Forest Giordano on 09-25-2023 HCV IgG IA Ql Non-Reactive Non Reactive [facility] INR in Platelet poor plasma by Coagulation assayOrdered By: Forest Giordano on 09-25-2023 INR Coag (PPP) [Relative time] 1.0 {INR} Normal [facility] Comment on above: INR Therapeutic Rang [...] heart valves: 3 - 4.5 PERFORMED BY: [place] [address] PATHOLOGIST FIRE MARSHAL REFINERY LORRAINE DIETZ M.D. Performed By: #### F ER, HEPATIC, FE and TIBC, PT, LIPID, CBC ####[address]#### HBCAB, HBSAG, ALPHA PHEN, REYNALDO RFX ADD ON, HBSAB, CERULOP, SMAB, HCV RX PCR ####[facility] , Iron [Mass/volume] in Serum or PlasmaOrdered By: Forest Giordano on 09-25-2023 Iron [Mass/Vol] 78 ug/dL Normal 50-212 [facility] Comment on above: Performed By: #### F ER, HEPATIC, FE and TIBC, PT, LIPID, CBC ####[address]#### HBCAB, HBSAG, ALPHA PHEN, REYNALDO RFX ADD ON, HBSAB, CERULOP, SMAB, HCV RX PCR ####[facility] , Iron and TIBC Profileon 09-06 % Iron Saturation 23.6 % Normal 20-50 [facility] Comment on above: Performed By: #### F ER, HEPATIC, FE and TIBC, PT, LIPID, CBC ####[place] [address] [place]#### HBCAB, HBSAG, ALPHA PHEN, REYNALDO RFX ADD ON, HBSAB, CERULOP, SMAB, HCV RX PCR ####[facility] , Total Iron Binding Capacity 330 ug/dL Normal 255-450 [facility] Comment on above: Performed By: #### F ER, HEPATIC, FE and TIBC, PT, LIPID, CBC ####[facility] [id number]#### HBCAB, HBSAG, ALPHA PHEN, REYNALDO RFX ADD ON, HBSAB, CERULOP, SMAB, HCV RX PCR ####[facility] , Iron binding capacity [Mass/ volume] in Serum or PlasmaOrdered By: Forest Giordano on 09-25-2023 Iron binding capacity [Mass/Vol] 330 ug/dL 255-450 [facility] Iron saturation [Mass Fracti on] in Serum or PlasmaOrdered By: Forest Giordano on 09-25-2023 Iron saturation [Mass fraction] 23.6 % 20-50 [facility] Leukocytes [#/volume] correc toya for nucleated erythrocytes in Blood by Automated counOrdered By: Forest Giordano on 09-25-2023 WBC corrected for nucl RBC Auto (Bld) [#/Vol] 7.2 10*3/uL 3.8-11.6 [facility] Leukocytes [#/volume] in Blo od by Automated countOrdered By: Forest Giordano on 09-25-2023 WBC (Bld) [#/Vol] 7.2 10*3/uL Normal 3.8-11.6 [facility] Comment on above: Performed By: #### F ER, HEPATIC, FE and TIBC, PT, LIPID, CBC ####[facility] [place] [address] [place]#### HBCAB, HBSAG, ALPHA PHEN, REYNALDO RFX ADD ON, HBSAB, CERULOP, SMAB, HCV RX PCR ####[facility] , Lipid Panelon 09-25-2023 LDL Cholesterol,Calculated 122 mg/dL High 0-100 [facility] Comment on above: Result Comment: LDL ATP III CLASSIFICATION LDL less than 100 mg/dL Optimal LDL 100-129 mg/dL Near or above optimal LDL 130-159 mg/dL Borderline high LDL 160-189 mg/dL High LDL greater than 189 mg/dL Very high Performed By: #### F ER, HEPATIC, FE and TIBC, PT, LIPID, CBC ####[place] [address] [address]#### HBCAB, HBSAG, ALPHA PHEN, REYNALDO RFX ADD ON, HBSAB, CERULOP, SMAB, HCV RX PCR ####[facility] , Triglyceride w/Reflex 89 mg/dL Normal 0-149 [facility] Comment on above: Result Comment: TRIG ATP III CLASSIFICATION TRIG less than 150 mg/dL Normal TRIG 150-199 mg/dL Borderline high TRIG 200-500 mg/dL High TRIG greater than 500 mg/dL Very high Standard traceable to the Center for Disease Conrtrol and Prevention (CDC) test method. Performed By: #### F ER, HEPATIC, FE and TIBC, PT, LIPID, CBC ####[address]#### HBCAB, HBSAG, ALPHA PHEN, REYNALDO RFX ADD ON, HBSAB, CERULOP, SMAB, HCV RX PCR ####[facility] , VLDL CHOLESTEROL 17 mg/dL Normal [facility] Comment on above: Performed By: #### F ER, HEPATIC, FE and TIBC, PT, LIPID, CBC ####[address]#### HBCAB, HBSAG, ALPHA PHEN, REYNALDO RFX ADD ON, HBSAB, CERULOP, SMAB, HCV RX PCR ####[facility] , Lymphocytes [#/volume] in Bl ood by Automated countOrdered By: Forest Giordano on 09-25-2023 Lymphocytes (Bld) [#/Vol] 3.1 10*3/uL Normal 1.00-4.8 [facility] Comment on above: Performed By: #### F ER, HEPATIC, FE and TIBC, PT, LIPID, CBC ####[address]#### HBCAB, HBSAG, ALPHA PHEN, REYNALDO RFX ADD ON, HBSAB, CERULOP, SMAB, HCV RX PCR ####[facility] , Lymphocytes/100 leukocytes i n Blood by Automated countOrdered By: Forest Giordano on 09-25-2023 Lymphocytes/100 WBC (Bld) 42.7 % Normal . [facility] Comment on above: Performed By: #### F ER, HEPATIC, FE and TIBC, PT, LIPID, CBC ####[place] [address] [address]#### HBCAB, HBSAG, ALPHA PHEN, REYNALDO RFX ADD ON, HBSAB, CERULOP, SMAB, HCV RX PCR ####[facility] , MCH [Entitic mass] by Automa toya countOrdered By: Forest Giordano on 09-25-2023 MCH (RBC) [Entitic mass] 30.9 pg Normal 24.7-34.3 [facility] Comment on above: Performed By: #### F ER, HEPATIC, FE and TIBC, PT, LIPID, CBC ####[address]#### HBCAB, HBSAG, ALPHA PHEN, REYNALDO RFX ADD ON, HBSAB, CERULOP, SMAB, HCV RX PCR ####[facility] , MCHC Auto (RBC) [Mass/Vol]Or dered By: Forest Giordano on 09-25-2023 MCHC (RBC) [Mass/Vol] 34.2 g/dL 32.0-35.0 [facility] MCV [Entitic volume] by Auto mated countOrdered By: Forest Giordano on 09-25-2023 MCV (RBC) [Entitic vol] 90.3 fL Normal 80-[address] [facility] Comment on above: Performed By: #### F ER, HEPATIC, FE and TIBC, PT, LIPID, CBC ####[place] [address] [place] [address] [place]#### HBCAB, HBSAG, ALPHA PHEN, REYNALDO RFX ADD ON, HBSAB, CERULOP, SMAB, HCV RX PCR ####[facility] , Neutrophils [#/volume] in Bl ood by Automated countOrdered By: Forest Giordano on 09-25-2023 Neutrophils (Bld) [#/Vol] 3.4 10*3/uL Normal 1.8-7.7 [facility] Comment on above: Performed By: #### F ER, HEPATIC, FE and TIBC, PT, LIPID, CBC ####[facility] [id number] [place] [id number] [facility]#### HBCAB, HBSAG, ALPHA PHEN, REYNALDO RFX ADD ON, HBSAB, CERULOP, SMAB, HCV RX PCR ####[facility] , No Panel InformationOrdered By: Forest Giordano on 09-25-2023 Anti-Nuclear Antibody Interpret See comment . [facility] Comment on above: Autoantibody Disease Association --------- Condition Frequency ---------Antinuclear Antibody, SLE, mixed connectiveDirect (REYNALDO-D) tissue diseases ---------dsDNA SLE 40 - 60% ---------Chromatin Drug induced SLE 90% SLE 48 - 97% ---------SSA (Ro) SLE 25 - 35% Sjogren's Syndrome 40 - 70% Lupus 100% ---------SSB (La) SLE 10% Sjogren's Syndrome 30% ---------Sm (anti-Llanes) SLE 15 - 30% ---------COMMERCIAL CARPENTER Mixed Connective Tissue Disease 95%(U1 nRNP, SLE 30 - 50%anti-ribonucleoprotein) Polymyositis and/or Dermatomyositis 20% ---------Scl-70 (antiDNA Scleroderma (diffuse) 20 - 35%topoisomerase) Crest 13% ---------Shey-1 Polymyositis and/or Dermatomyositis 20 - 40% ---------Centromere B Scleroderma - Crest variant 80%Performed at: - [facility], [place] BridgeWsj[address] [place], [place] [id number] Director: Dhruv Schreiber PhD, Phone: [phone] Hepatitis B Core Total Antibody Negative Negative [facility] Comment on above: Performed at: [place] [id number] [place], [place] [id number] Director: Dhruv Schreiber PhD, Phone: [phone] Hepatitis C Interpretation See comment . [facility] Comment on above: Not infected with HC V unless early or acute infection issuspected (which may be delayed in an immunocompromisedindividual), or other evidence exists to indicate HCVinfection. COMMERCIAL CARPENTER Antibody <0.2 AI 0.0-0.9 [facility] Nucleated erythrocytes [Pres ence] in Blood by Automated countOrdered By: Forest Giordano on 09-25-2023 Nucleated RBC Auto Ql (Bld) 0.1 /100{WBC} 0-0.5 [facility] Platelet mean volume [Entiti c volume] in Blood by Automated countOrdered By: Forest Giordano on 09-25-2023 Platelet mean volume (Bld) [Entitic vol] 8.9 fL Normal 6.3-10.7 [facility] Comment on above: Performed By: #### F ER, HEPATIC, FE and TIBC, PT, LIPID, CBC ####[facility] [id number]#### HBCAB, HBSAG, ALPHA PHEN, REYNALDO RFX ADD ON, HBSAB, CERULOP, SMAB, HCV RX PCR ####[facility] , Platelets [#/volume] in Bloo d by Automated countOrdered By: Forest Giordano on 09-25-2023 Platelets (Bld) [#/Vol] 179 10*3/uL Normal 150-450 [facility] Comment on above: Performed By: #### F ER, HEPATIC, FE and TIBC, PT, LIPID, CBC ####[facility] [id number] [place] [address] [place]#### HBCAB, HBSAG, ALPHA PHEN, REYNALDO RFX ADD ON, HBSAB, CERULOP, SMAB, HCV RX PCR ####[facility] , Protein [Mass/volume] in Ser um or PlasmaOrdered By: Forest Giordano on 09-25-2023 Protein [Mass/Vol] 6.8 g/dL Normal 6.4-8.9 [facility] Comment on above: Performed By: #### F ER, HEPATIC, FE and TIBC, PT, LIPID, CBC ####[facility] [id number] [place] [address] [place]#### HBCAB, HBSAG, ALPHA PHEN, REYNALDO RFX ADD ON, HBSAB, CERULOP, SMAB, HCV RX PCR ####[facility] , Prothrombin time (PT)Ordered By: Forest Giordano on 09-25-2023 PT Coag (PPP) [Time] 11.2 s Normal 9.0-12.9 [facility] Comment on above: A hematocrit value g reater than 55% may lead to inaccurate results in coagulation testing. Patients having hematocrit values >55% require a special collection tube for coagulation studies. Please contact the laboratory at [phone] for redraw instructions. Result Comment: A he matocrit value greater than 55% may lead to inaccurate results in coagulation testing. Patients having hematocrit values >55% require a special collection tube for coagulation studies. Please contact the laboratory at [phone] for redraw instructions. Performed By: #### F ER, HEPATIC, FE and TIBC, PT, LIPID, CBC ####[facility] [id number] [place] [address] [place]#### HBCAB, HBSAG, ALPHA PHEN, REYNALDO RFX ADD ON, HBSAB, CERULOP, SMAB, HCV RX PCR ####[facility] , Scl-70 antibody assayOrdered By: Forest Giordano on 09-25-2023 SCL-70 extractable nuclear Ab IA Qn (S) >8.0 AI 0.0-0.9 [facility] Serum Shey-1 extractable nucle ar antibody assay (units/volume)Ordered By: Forest Giordano on 09-25-2023 Shey-1 extractable nuclear Ab Qn (S) <0.2 AI 0.0-0.9 [facility] Serum Sjogrens syndrome-A ex tractable nuclear antibody assay (units/volume)Ordered By: Forest Giordano on 09-25-2023 Sjogrens syndrome-A extractable nuclear Ab Qn (S) <0.2 AI 0.0-0.9 [facility] Serum Sjogrens syndrome-B ex tractable nuclear antibody assay (units/volume)Ordered By: Forest Giordano on 09-25-2023 Sjogrens syndrome-B extractable nuclear Ab Qn (S) 0.5 AI 0.0-0.9 [facility] Serum Llanes extractable nucl ear antigen (SHALINI) antibody assay (units/volume)Ordered By: Forest Giordano on 09-25-2023 Llanes extractable nuclear Ab Qn (S) <0.2 AI 0.0-0.9 [facility] Serum [id number] me asurementOrdered By: Forest Giordano on 09-25-2023 Alpha 1 antitrypsin [Mass/Vol] 155 mg/dL 101-187 [facility] Serum centromere protein B a ntibody assay (units/volume)Ordered By: Forest Giordano on 09-25-2023 Centromere protein B Ab Qn (S) <0.2 AI 0.0-0.9 [facility] Serum globulin measurement b y calculation (mass/volume)Ordered By: Forest Giordano on 09-25-2023 Globulin (S) [Mass/Vol] 2.6 g/dL Normal [facility] Comment on above: Performed By: #### F ER, HEPATIC, FE and TIBC, PT, LIPID, CBC ####[facility]#### HBCAB, HBSAG, ALPHA PHEN, REYNALDO RFX ADD ON, HBSAB, CERULOP, SMAB, HCV RX PCR ####[facility] , Serum or plasma albumin/glob ulin mass ratioOrdered By: Forest Giordano on 09-25-2023 Albumin/Globulin [Mass ratio] 1.6 {ratio} Normal [facility] Comment on above: Performed By: #### F ER, HEPATIC, FE and TIBC, PT, LIPID, CBC ####[facility] [id number]#### HBCAB, HBSAG, ALPHA PHEN, REYNALDO RFX ADD ON, HBSAB, CERULOP, SMAB, HCV RX PCR ####[facility] , Serum or plasma alpha 1 anti trypsin phenotyping identification by immunofixationOrdered By: Forest Giordano on 09-25-2023 Alpha 1 antitrypsin phenotyping Immunofixation Nom Mm . [facility] Comment on above: Phenotype Population A-1-AT [...] reference. Ranges used to confirm phenotype.Performed at: [facility] [address] [id number] Director: Dhruv Schreiber PhD, Phone: [phone] at: [facility] [address] [id number] Director: Leyla Britt MD, Phone: [phone] Serum or plasma ceruloplasmi n measurement (mass/volume)Ordered By: Forest Giordano on 09-25-2023 Ceruloplasmin [Mass/Vol] 22.9 mg/dL 19.0-39.0 [facility] Comment on above: Performed at: [employer] [address] [id number] Director: Dhruv Schreiber PhD, Phone: [phone] Serum or plasma chromatin an tibody assay (units/volume)Ordered By: Forest Giordano on 09-25-2023 Chromatin Ab Qn <0.2 AI 0.0-0.9 [facility] Serum or plasma free cefurox latesha measurement (mass/volume)Ordered By: Forest Giordano on 02-21-2024 Cefuroxime free [Mass/Vol] Positive Negative [facility] Serum or plasma high density lipoprotein (HDL) cholesterol measurementOrdered By: Forest Giordano on 09-25-2023 Cholesterol in HDL [Mass/Vol] 59 mg/dL Normal 23-92 [facility] Comment on above: HDL CHOL ATP-III CLA SSIFICATION Cardiovascular RiskHDL > or equal to 60 mg/dL LOWHDL < 40 mg/dL HIGH Result Comment: HDL CHOL ATP-III CLASSIFICATION Cardiovascular Risk HDL > or equal to 60 mg/dL LOW HDL < 40 mg/dL HIGH Performed By: #### F ER, HEPATIC, FE and TIBC, PT, LIPID, CBC ####[facility] [id number] [place] [id number] [place]#### HBCAB, HBSAG, ALPHA PHEN, REYNALDO RFX ADD ON, HBSAB, CERULOP, SMAB, HCV RX PCR ####[facility] , Serum or plasma non-glucuron idated bilirubin measurement (mass/volume)Ordered By: Forest Giordano on 09-25-2023 Bilirubin.indirect [Mass/Vol] 0.5 mg/dL [facility] Serum or plasma total choles terol/high density lipoprotein (HDL) cholesterol mass ratOrdered By: Forest Giordano on 09-25-2023 Cholesterol.total/Nanci sterol in HDL [Mass ratio] 3.4 {ratio} Normal <5.0 [facility] Comment on above: Result Comment: PERF ORMED BY: [facility] [address] [place] [id number] PATHOLOGIST FIRE MARSHAL REFINERY LORRAINE DIETZ M.D. Performed By: #### F ER, HEPATIC, FE and TIBC, PT, LIPID, CBC ####[facility] [id number] [place] [id number] [facility]#### HBCAB, HBSAG, ALPHA PHEN, REYNALDO RFX ADD ON, HBSAB, CERULOP, SMAB, HCV RX PCR ####[facility] , Smooth Muscle Antibodyon Smooth Muscle Antibody 129 High 0-19 [facility] Comment on above: Result Comment: Nega tive 0 - 19 Weak positive 20 - 30 Moderate to strong positive >30 Actin Antibodies are found in 52-85% of patients with autoimmune hepatitis or chronic active hepatitis and in 22% of patients with primary biliary cirrhosis. Performed at: [facility] [address] [id number] Analysis Engineer: Dhruv Schreiber PhD, Phone: [phone] PERFORMED BY: [place] [address] PATHOLOGIST FIRE MARSHAL REFINERY LORRAINE DIETZ M.D. Performed By: #### F ER, HEPATIC, FE and TIBC, PT, LIPID, CBC ####[address]#### HBCAB, HBSAG, ALPHA PHEN, REYNALDO RFX ADD ON, HBSAB, CERULOP, SMAB, HCV RX PCR ####[facility] , Transferrin [Mass/volume] in Serum or PlasmaOrdered By: Forest Giordano on 09-25-2023 Transferrin [Mass/Vol] 236 mg/dL Normal 203-362 [facility] Comment on above: Performed By: #### F ER, HEPATIC, FE and TIBC, PT, LIPID, CBC ####[address]#### HBCAB, HBSAG, ALPHA PHEN, REYNALDO RFX ADD ON, HBSAB, CERULOP, SMAB, HCV RX PCR ####[facility] , Triglyceride [Mass/volume] i n Serum or PlasmaOrdered By: Forest Giordano on 09-25-2023 Triglyceride [Mass/Vol] 89 mg/dL 0-[address] [facility] Comment on above: TRIG ATP III CLASSIF ICATIONTRIG less than 150 mg/dL NormalTRIG 150-199 mg/dL Borderline highTRIG 200-500 mg/dL High TRIG greater than 500 mg/dL Very highStandard traceable to the Center for Disease Conrtrol and Prevention (CDC) test method. liveron 09-25-2023 liver [facility] [place] [address] [place] [address] Ultrasound Report Signed Patient: Dejah Dykes MR#: [id number] : 1970 Acct:[id number] Age/Sex: 53 / F ADM Date: 09/25/23 Loc: Room: Type: [facility] Attending Dr: Forest Giordano APRN Ordering Provider: [...] Alka Earl M.D.09/25/2023 3:07 PM Dictation Location: [place] [address] Tech: [facility] Transcribed By: YADIRA 09/25/23 1507 Dictated By: Alka Earl MD 09/25/23 1505 Signed By: 09/25/23 1507 Normal [facility] CNOVjose de jesus 09-24-2023 CNOV Office Visit (STED) -- DEJAH DYKES ([id number]) 1970 F Date Time Provider Department 09/24/23 1:00 PM ALFREDO CRUZ During your visit today, we recorded the following information about you: Pulse Blood pressure Weight Height 84/minute 145/84 115 kg 1.626 m Alfredo Cruz MD 09/24/2023 2:51 PM Signed Endocrinology and Metabolism [facility] - Initial Visit Patient Name: Dejah Dykes Referring Provider: Elly Galicia [address] [place] [address] My final recommendations will be communicated back [...] managed Social: 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 Normal [facility] Comprehensive metabolic 2000 panelon 09-24-2023 Albumin [Mass/Vol] 4.1 g/dL Normal 3.9-4.9 [facility] Comment on above: Order Comment: Speci men Type: BLOOD SPECIMEN Ordering Facility: [facility] Address: [address] [place] [address] Performed By: #### 3 024-7, 3016-3, 17609-6 #### [facility] CLIA [id number] [address] [place] [address] [place] [Catalytic activity/Vol] 83 U/L Normal 34-123 [facility] Comment on above: Order Comment: Speci men Type: BLOOD SPECIMEN Ordering Facility: [facility] Address: [address] [address] Performed By: #### 3 024-7, 3016-3, 08065-4 #### [facility] CLIA [id number] [address] [place] [address] [place] ALT [Catalytic activity/Vol] 63 U/L High 7-38 [facility] Comment on above: Order Comment: Speci men Type: BLOOD SPECIMEN Ordering Facility: [facility] Address: [address] Performed By: #### 3 024-7, 3016-3, 44569-3 #### [facility] CLIA [id number] [address] [place] [address] [place] Anion gap [Moles/Vol] 13 mmol/L Normal 9-18 [facility] Comment on above: Order Comment: Speci men Type: BLOOD SPECIMEN Ordering Facility: [facility] Address: [address] [address] Performed By: #### 3 024-7, 3016-3, 51316-3 #### [facility] CLIA [id number] [address] [place] [address] [place] AST [Catalytic activity/Vol] 68 U/L High 13-35 [facility] Comment on above: Order Comment: Speci men Type: BLOOD SPECIMEN Ordering Facility: [facility] Address: [address] [place] [address] Performed By: #### 3 024-7, 6-3, 83627-1 #### [facility] CLIA [id number] [address] [place] [address] [place] Bilirubin [Mass/Vol] 0.6 mg/dL Normal 0.2-1.3 [facility] Comment on above: Order Comment: Speci men Type: BLOOD SPECIMEN Ordering Facility: [facility] Address: [address] [place] [address] Performed By: #### 3 024-7, 3015-3, 50878-9 #### [facility] CLIA [id number] [address] [place] [address] [place] Calcium [Mass/Vol] 9.7 mg/dL Normal 8.5-10.2 [facility] Comment on above: Order Comment: Speci men Type: BLOOD SPECIMEN Ordering Facility: [facility] Address: [address] Performed By: #### 3 024-7, 3015-3, 62251-8 #### [facility] CLIA [id number] [address] [place] [address] [place] Chloride [Moles/Vol] 104 mmol/L Normal 97-105 [facility] Comment on above: Order Comment: Speci men Type: BLOOD SPECIMEN Ordering Facility: [facility] Address: [address] [place], [place] [address] Performed By: #### 3 024-7, 3015-3, 63935-1 #### [facility] CLIA [id number] [address] [place] [address] [place] CO2 [Moles/Vol] 26 mmol/L Normal 22-30 [facility] Comment on above: Order Comment: Speci men Type: BLOOD SPECIMEN Ordering Facility: [facility] Address: [address] [place] [address] Performed By: #### 3 024-7, 6-3, 09205-4 #### [facility] CLIA [id number] [facility] [place] [address] [place] Creatinine [Mass/Vol] 0.73 mg/dL Normal 0.58-0.96 [facility] Comment on above: Order Comment: Speci men Type: BLOOD SPECIMEN Ordering Facility: [facility] Address: [address] [place] [address] Performed By: #### 3 024-7, 3015-3, 59151-6 #### [facility] [place] [id number] [address] [place] [address] [place] Creatinine and Glomerular filtration rate.predicted panel (S/P/Bld) 98 mL/min/1.73m??? Normal >=60 [facility] Comment on above: Order Comment: Speci men Type: BLOOD SPECIMEN Ordering Facility: [facility] Address: [address] [place] [address] Result Comment: Brenda mated Glomerular Filtration Rate [...] actual GFR. Performed By: #### 3 024-7, 6-3, 03250-4 #### [facility] CLIA [id number] [address] [place] [address] [place] Glucose [Mass/Vol] 82 mg/dL Normal 74-99 [facility] Comment on above: Order Comment: Speci men Type: BLOOD SPECIMEN Ordering Facility: [facility] Address: [address] [place] [address] Result Comment: The [place] Diabetes Association (ADA) provides guidance for cutoff [...] Standards of Medical Care in Diabetes 2016, [place] Diabetes Association. Diabetes Care. 2016.39(Suppl 1). Performed By: #### 3 024-7, 3016-3, 88146-8 #### [facility] CLIA [id number] [address] [place] [address] [place] Potassium [Moles/Vol] 3.4 mmol/L Low 3.7-5.1 [facility] Comment on above: Order Comment: Pauline giordano Type: BLOOD SPECIMEN Ordering Facility: [facility] Address: [address] [place] [address] Performed By: #### 3 024-7, 3016-3, 41236-2 #### [facility] CLIA [id number] [address] [place] [address] [place] Protein [Mass/Vol] 7.2 g/dL Normal 6.3-8.0 [facility] Comment on above: Order Comment: Parvini men Type: BLOOD SPECIMEN Ordering Facility: [facility] Address: [address] [place] [address] Performed By: #### 3 024-7, 3016-3, 34475-0 #### [facility] CLIA [id number] [address] [place] [address] [place] Sodium [Moles/Vol] 143 mmol/L Normal 136-144 [facility] Comment on above: Order Comment: Speci men Type: BLOOD SPECIMEN Ordering Facility: [facility] Address: [address] [place] [address] Performed By: #### 3 024-7, 3016-3, 03977-4 #### [facility] CLIA [id number] [address] [place] [address] [place] Urea nitrogen [Mass/Vol] 8 mg/dL Normal 7-21 [facility] Comment on above: Order Comment: Speci men Type: BLOOD SPECIMEN Ordering Facility: [facility] Address: [address] [place] [address] Performed By: #### 3 024-7, 3016-3, 02163-9 #### [facility] CLIA [id number] [address] [place] [address] [place] HbA1c (Bld)on 09-24-2023 Average glucose Estimated from glycated hemoglobin (Bld) [Mass/Vol] 120 mg/dL [facility] HbA1c (Bld) [Mass fraction] 5.8 % High 4.3 - 5.6 % [facility] Average glucose Estimated from glycated hemoglobin (Bld) [Mass/Vol] 120 mg/dL Normal [facility] Comment on above: Order Comment: Speci men Type: BLOOD SPECIMEN Ordering Facility: [facility] Address: [address] [place] [address] Result Comment: eAG: (Estimated average glucose) is a calculated value from HgbA1c and is sales representative adding machines of the average blood glucose level in the last 2-3 month period. Performed By: #### 5 5454-3 #### [facility] CLIA [id number] [address] [place] [address] [place] HbA1c (Bld) [Mass fraction] 5.8 % High 4.3-5.6 [facility] Comment on above: Order Comment: Speci men Type: BLOOD SPECIMEN Ordering Facility: [facility] Address: [address] [place] [address] Result Comment: [place] Diabetes Association guidelines indicate that patients with HgbA1c in the range 5.7-6.4% are at increased risk for development of diabetes, and intervention by lifestyle modification may be beneficial. HgbA1c greater or equal to 6.5% is considered diagnostic of diabetes. Performed By: #### 5 5454-3 #### [facility] CLIA [id number] [address] [place] [address] [place] Heart and Vascular Office/Cl [...] medication. She is being referred to a blocking machine operator. She denies taking NSAIDs for her pain. [...] with voice recognition artificial intelligence software, specifically [employer] and or [employer] Substitutions may have occurred due to the inherent limitations of voice recognition and artificial intelligence software. ATTESTATION: Documentation services were performed after the patient or guardian consented to allow [employer] to record this visit. [employer]ST[employer] account resolution specialist and provider reviewed before signing. NESTOR: Luc Navarro-os/ Pasted by: Laura Bautista. Follow-up No qualifying [...] 1 ta (more content not included)... Normal [facility] Comment on above: Result Comment: Elec tronically Signed By: Carlos ARCOS, Forest Jung\.br\Date and Time Signed: 09/14/23 12:38 EST\.br\Electronically Co-Signed By: Laura Bautista\.br\Date and Time Co-Signed: 09/12/23 15:19 EST Consent for Treatmenton Consent for Treatment [id number]#1.00TIFF [facility] Physician Orderon 09-12-2023 Physician Order [id number]#1.00TIFF [facility] MA Mamm Screen w/CAD if perf and [...] IS VERY IMPORTANT TO YOUR HEALTH. THE [place] [employer]IET[employer] GUIDELINES RECOMMEND THAT WOMEN 40 [...] Layton Terry MD Transcribed by: JOSE Technologist: JAKE Assessment: BI-RADS Category 1-Negative Recommendation: Normal interval follow-up Normal [facility] Consent for Treatmenton 08-06 Consent for Treatment [id number]#1.00TIFF Normal [facility] Outside Records Officeon Outside Records Office [id number]#1.00TIFF Normal [facility] Referrals Officeon 4 Referrals Office [id number]#1.00TIFF Normal [facility] US LE Venous Duplex Insuffic iency [...] 0.3 Depth: Intrafascial Reflux (sec): None. Normal [facility] Consent for Treatmenton Consent for Treatment [id number]#1.00TIFF Normal [facility] ED Note-Physicianon 08-13-19 24 ED Note-Physician [...] day(s), # 21 tab(s), Refills(s) 0, [id number], 162, cm, 08/12/23 11:38:00 EST, Height/Length Dosing, [...] Information Lenora SANTOS In 3 days 08/15/2023 [place] [id number] [facility] (1) Additional Instructions: Patient Education Hip Pain Attestation Patient seen and evaluated by the physician accountant assistant. Attending physician was present in the emergency department and supervised care. This visit was performed by both the physician and an APC. I performed all aspects of the MDM as documented. This report was transcribed using voice recognition software. Every effort was made to ensure accuracy, however, inadvertently computerized water pipe installer mistakes may be present. Appropriate healthcare PPE [...] mg Tab, 10 (more content not included)... [facility] Comment on above: Result Comment: Elec tronically Signed By: Brian Brito PA-C\.br\Date and Time Signed: 08/12/23 14:35 EST\.br\Electronically Co-Signed By: James Richards DO\.br\Date and Time Co-Signed: 08/13/23 08:46 EST Physician Orderon 08-13-2023 Physician Order [id number]#1.00TIFF [facility] RAD - Ultrasound Impressiono n 08-13-2023 RAD - Ultrasound Impression [id number]#1.00TIFF [facility] Consent for Treatmenton Consent for Treatment [id number]#1.00TIFF [facility] Discharge Instructionson Discharge Instructions [id number]#1.00TIFF [facility] ED Clinical Summaryon 2023 ED Clinical Summary (Inserted Image. Carrie ble to display) [place] [address] ED Clinical Summary Person Information Name: DEJAH DYKES [facility] Age: 53 Years : 1970 Sex: Female Language: Romanian PCP: Lenora SANTOS PA-C Marital Status: Visit [...] 08/12/2023 12:41:21 08/12/2023 12:41:21 08/12/2023 12:41:21 ADDRESS: [id number] [place] [id number] PHYS DOC NOTES: MEDICAL INFORMATION: Prescriptions Given: [id number], [address] [place], [place] [id number], [phone] predniSONE (predniSONE 20 mg Tab) 3 Tablets [...] Pain Follow up: With: Address: When: [place] [address] Business (1) In 3 days 08/15/2023 DIAGNOSIS: Hip pain Normal [facility] ED Patient Education Noteon 08-12-2023 ED [...] that cause pain. General instructions ? Take dzkq-jqx-gbyefkp and prescription medicines only as told by [...] provider. Document Revised: 12/07/2019 Document Reviewed: 12/07/2019 [employer] Patient Education ? 2022 [employer] Normal [facility] ED Patient Summaryon 024 ED Patient Summary (Inserted Image. Carrie ble to display) [address] [address] Patient Discharge Instructions Person Information Name: DEJAH DYKES Age: 53 Years Arrival Date: 08/12/2023 11:28:07 Discharge Diagnosis: Hip pain Primary Care Physician: Lenora SANTOS PA-C Provider Information Primary Provider: James Richards DO Advanced Manager Clinical Research:Brian Brito PA-C The exam and treatment you received in the Emergency Department were for an urgent problem and are not intended as complete care. It is important that you follow up with a doctor, nurse practitioner, or physician?s accountant assistant for ongoing care. If your symptoms [...] With: Address: When: [place] [address] Business (1) In 3 days 08/15/2023 In the event that this physician does not participate in your insurance network, please consult with your insurance company to find a nearby participating provider. Patient Education Materials: Hip Pain A MESSAGE TO ALL PATIENTS REGARDING OPIOIDS PRESCRIPTION OPIOIDS: WHAT YOU NEED TO KNOW Prescription opioids can be used to help relieve hugoytbc-en-qtmshn pain and are often prescribed following a [...] be struggling with addiction, tell your health critical care transport nurse and ask for guidance or call [facility]S National Helpline at 8-381-712-HELP. v Source: US Department of Health and Human (more content not included)... Normal [facility] Heart and Vascular Office/Cl inic Noteon [...] her stopped breathing episodes, she saw a steam roller operator. She is nervous because her blood pressure [...] an upcoming appointment with endocrinology at the [facility] scheduled for 09/2023. Review of Systems PHQ [...] with voice recognition artificial intelligence software, specifically [employer] and or [employer] Substitutions may have occurred with voice recognition and artificial intelligence software. ATTESTATION: Documentation services were performed after patient or guardian consented to allow [employer] to record this visit. [employer]ST[employer] account resolution specialist and provider reviewed before signing. NESTOR: [...] Arthroscopy of knee (more content not included)... [facility] Comment on above: Result Comment: Elec tronically Signed By: Carlos ARCOS, Forest Jung\.br\Date and Time Signed: 08/11/23 20:37 EST\.br\Electronically Co-Signed By: Emily Jesus\.br\Date and Time Co-Signed: 08/02/23 16:46 EST Insurance Correspondenceon 0 08-08-2023 Insurance Correspondence [id number]#1.00TIFF [facility] Consent for Treatmenton 07-06 Consent for Treatment [id number]#1.00TIFF [facility] Physician Orderon 08-02-2023 Physician Order [id number]#1.00TIFF [facility] CNOVon 06-24-2023 CNOV Office Visit (ENDOCF ) -- DEJAH DYKES ([id number]) 1970 F Date Time Provider Department 06/24/23 2:40 PM ELLY GALICIA ENDOCSylwia During your visit today, [...] - Biotin- none - Amiodarone- none - Mcgehee- none - Head/neck radiation- none Interval history: [...] Pertinent procedure/alexys (more content not included)... Normal [facility] T4 Free SerPl-mCncon 023 Free T4 [Mass/Vol] 1.0 ng/dL Normal 0.9-1.7 [facility] Comment on above: Order Comment: Speci men Type: BLOOD SPECIMEN Ordering Facility: [facility] Address: [address] [place] [address] Performed By: #### 3 016-3, 3024-7 #### [facility] CLIA [id number] [address] [place] [address] [place] TSH SerPl-aCncon 06-24-2023 TSH Qn 3.580 m[IU]/L Normal 0.270-4.20 0 [facility] Comment on above: Order Comment: Speci men Type: BLOOD SPECIMEN Ordering Facility: [facility] Address: [address] [place] [address] Performed By: #### 3 016-3, 3024-7 #### [facility] CLIA [id number] [address] [place], [place] [address] [place] Referrals Officeon 3 Referrals Office [id number]#1.00TIFF Normal [facility] Cortis SerPl-mCncon 05-14-20 23 Cortisol [Mass/Vol] 0.5 ug/dL Low 4.8-19.5 [facility] Comment on above: Order Comment: Speci men Type: BLOOD SPECIMEN Ordering Facility: [facility] Address: [address] [place] [address] Result Comment: Prov ided reference range is from 6-10 AM sample collection time. Cortisol Reference Range: 6-10 AM = 4.8-19.5 ug/dL, 4-8 PM = 2.5-11.9 ug/dL Performed By: #### 3 024-7, 3016-3, 96733-9 #### [facility] CLIA [id number] [address] [place] [address] [place] DEXAMETHASONEon 05-14-2023 DEXAMETHASONE 376.1 ng/dL Normal [facility] Comment on above: Order Comment: Pauline giordano Type: BLOOD SPECIMEN Ordering Facility: [facility] Address: [address] [place] [address] Result Comment: INTE RPRETIVE INFORMATION: Dexamethasone, Serum [...] developed and its performance characteristics determined by [employer]. It has not been cleared or approved by the US Food and Drug Administration. This test was performed in a CLIA certified laboratory and is intended for clinical purposes. Performed By: [facility] [employer] [facility] [address] [place] [address] [employer] Director: Nitin Khoury MD, PhD CLIA Number: [id number] Performed By: #### 3 024-7, 3016-3, 39174-7 #### [facility] CLIA [id number] [address] [place] [address] [place] Aldost SerPl-mCncon 05-06-20 23 Aldosterone [Mass/Vol] 7.6 ng/dL Normal 0.0-<35.4 [facility] Comment on above: Order Comment: Pauline giordano Type: BLOOD SPECIMEN Ordering Facility: [facility] Address: [address] [place], [place] [address] Result Comment: The reference interval for serum/plasma [...] ng/dL. Performed By: #### 3 024-7, 3016-3, 01795-4 #### [facility] CLIA [id number] [address] [place] [address] [place] Basic metabolic 2000 panelon 05-06-2023 Anion gap [Moles/Vol] 11 mmol/L Normal 9-18 [facility] Comment on above: Order Comment: Speci men Type: BLOOD SPECIMEN Ordering Facility: [facility] Address: [address] [address] Performed By: #### 3 024-7, 3016-3, 63867-2 #### [facility] CLIA [id number] [address] [place] [address] [place] Calcium [Mass/Vol] 9.4 mg/dL Normal 8.5-10.2 [facility] Comment on above: Order Comment: Speci men Type: BLOOD SPECIMEN Ordering Facility: [facility] Address: [address] [address] Performed By: #### 3 024-7, 3016-3, 66438-9 #### [facility] CLIA [id number] [address] [place] [address] [place] Chloride [Moles/Vol] 104 mmol/L Normal 97-105 [facility] Comment on above: Order Comment: Speci men Type: BLOOD SPECIMEN Ordering Facility: [facility] Address: [address] Performed By: #### 3 024-7, 3016-3, 15427-6 #### [facility] CLIA [id number] [address] [place] [address] [place] CO2 [Moles/Vol] 26 mmol/L Normal 22-30 [facility] Comment on above: Order Comment: Speci men Type: BLOOD SPECIMEN Ordering Facility: [facility] Address: [address] Performed By: #### 3 024-7, 3016-3, 81946-3 #### [facility] CLIA [id number] [address] [place] [address] [place] Creatinine [Mass/Vol] 0.84 mg/dL Normal 0.58-0.96 [facility] Comment on above: Order Comment: Pauline giordano Type: BLOOD SPECIMEN Ordering Facility: [facility] Address: [address] [place] [address] Performed By: #### 3 024-7, 3015-3, 31916-9 #### [facility] CLIA [id number] [address] [place] [address] [place] Creatinine and Glomerular filtration rate.predicted panel (S/P/Bld) 83 mL/min/1.73m??? Normal >=60 [facility] Comment on above: Order Comment: Pauline giordano Type: BLOOD SPECIMEN Ordering Facility: [facility] Address: [address] [place] [address] Result Comment: Brenda mated Glomerular Filtration Rate [...] GFR. Performed By: #### 3 024-7, 3015-3, 91314-3 #### [facility] CLIA [id number] [address] [place] [address] [place] Glucose [Mass/Vol] 104 mg/dL High 74-99 [facility] Comment on above: Order Comment: Pauline giordano Type: BLOOD SPECIMEN Ordering Facility: [facility] Address: [address] [place] [address] Result Comment: The [place] Diabetes Association (ADA) provides guidance for cutoff [...] Standards of Medical Care in Diabetes 2016, [place] Diabetes Association. Diabetes Care. 2016.39(Suppl 1). Performed By: #### 3 024-7, 3016-3, 66399-7 #### [facility] CLIA [id number] [address] [place] [address] [place] Potassium [Moles/Vol] 3.9 mmol/L Normal 3.7-5.1 [facility] Comment on above: Order Comment: Speci men Type: BLOOD SPECIMEN Ordering Facility: [facility] Address: [address] [place] [address] Performed By: #### 3 024-7, 6-3, 95354-4 #### [facility] CLIA [id number] [address] [place] [address] [place] Sodium [Moles/Vol] 141 mmol/L Normal 136-144 [facility] Comment on above: Order Comment: Speci men Type: BLOOD SPECIMEN Ordering Facility: [facility] Address: [address] [place] [address] Performed By: #### 3 024-7, 3016-3, 95772-5 #### [facility] CLIA [id number] [address] [place] [address] [place] Urea nitrogen [Mass/Vol] 9 mg/dL Normal 7-21 [facility] Comment on above: Order Comment: Speci men Type: BLOOD SPECIMEN Ordering Facility: [facility] Address: [address] [place] [address] Performed By: #### 3 024-7, 3016-3, 84628-0 #### [facility] CLIA [id number] [address] [place] [id number] [place] CNOVon 05-06-2023 CNOV Office Visit (ENDOCF ) -- DEJAH DYKES ([id number]) 1970 F Date Time Provider Department 05/06/23 [...] - Biotin- none - Amiodarone- none - Mcgehee- none - Head/neck radiation- none I have [...] file t (more content not included)... Normal [facility] DIRECT RENIN PLASMAon 2022 DIRECT RENIN 11.8 pg/mL Normal 3.6-81.6 [facility] Comment on above: Order Comment: Pauline giordano Type: BLOOD SPECIMEN Ordering Facility: [facility] Address: [address] [address] Result Comment: A ra harika of aldosterone [...] pg/mL Performed By: #### 3 024-7, 3016-3, 96518-4 #### [facility] CLIA [id number] [address] [place] [address] [place] PATIENT UPRIGHT OR SUPINE Upright Normal [facility] Comment on above: Order Comment: Pauline giordano Type: BLOOD SPECIMEN Ordering Facility: [facility] Address: [address] [id number] Performed By: #### 3 024-7, 3016-3, 64925-3 #### [facility] CLIA [id number] [facility] [facility] T4 Free SerPl-mCncon 023 Free T4 [Mass/Vol] 1.3 ng/dL Normal 0.9-1.7 [facility] Comment on above: Order Comment: Speci men Type: BLOOD SPECIMEN Ordering Facility: [facility] Address: [address] [place] [address] Performed By: #### 3 024-7, 3016-3, 42722-7 #### [facility] CLIA [id number] [address] [place] [address] TSH SerPl-aCncon 05-06-2023 TSH Qn 1.590 m[IU]/L Normal 0.270-4.20 0 [facility] Comment on above: Order Comment: Speci men Type: BLOOD SPECIMEN Ordering Facility: [facility] Address: [address] [place] [address] Performed By: #### 3 024-7, 3016-3, 80434-4 #### [facility] [place] [id number] [address] [place] [address] Patient Eval Forms Officeon 04-09-2023 Patient Eval Forms Office [id number]:127 Normal [facility] Consent for Treatmenton Consent for Treatment [id number]:127 Normal [facility] Sleep Office/Clinic Noteon 0 04-05-2023 Sleep [...] [facility] [place] [address]- Additional Instructions: Problem List/Past Medical [...] Alcohol - (more content not included)... Normal [facility] Comment on above: Result Comment: Elec tronically Signed By: Donald ARCOS, Juan Hodge\.br\Date and Time Signed: 04/05/23 10:43 EDT Activated partial thrombopla stin time (aPTT) in platelet poor plasma by coagulation aOrdered By: Regino Metcalf on 03-10-2023 aPTT Coag (PPP) [Time] 28.6 s 25.1-36.5 [facility] Alanine aminotransferase [En zymatic activity/volume] in Serum or PlasmaOrdered By: Regino Metcalf on 03-10-2023 ALT [Catalytic activity/Vol] 44 U/L 7-52 [facility] Albumin [Mass/volume] in Ser um or Plasma by Bromocresol green (BCG) dye binding methoOrdered By: Regino Metcalf on 03-10-2023 Albumin BCG dye [Mass/Vol] 4.1 g/dL 3.5-5.7 [facility] Alkaline phosphatase [Enzyma tic activity/volume] in Serum or PlasmaOrdered By: Regino Metcalf on 03-10-2023 ALP [Catalytic activity/Vol] 67 U/L 34-104 [facility] Aspartate aminotransferase [ Enzymatic activity/volume] in Serum or PlasmaOrdered By: Regino Metcalf on 03-10-2023 AST [Catalytic activity/Vol] 41 U/L 13-39 [facility] Basophils Auto (Bld) [#/Vol] Ordered By: Regino Metcalf on 03-10-2023 Basophils (Bld) [#/Vol] 0.1 10*3/uL 0.0-0.2 [facility] Basophils/100 WBC Auto (Bld) Ordered By: Regino Metcalf on 03-10-2023 Basophils/100 WBC (Bld) 1.5 % . [facility] Bilirubin Test strip Ql (U)O rdered By: Regino Metcalf on 03-10-2023 Bilirubin Ql (U) Negative Negative [facility] Bilirubin.direct [Mass/volum e] in Serum or PlasmaOrdered By: Regino Metcalf on 03-10-2023 Bilirubin.direct [Mass/Vol] 0.10 mg/dL 0.03-0.18 [facility] Bilirubin.total [Mass/volume ] in Serum or PlasmaOrdered By: Regino Metcalf on 03-10-2023 Bilirubin [Mass/Vol] 0.5 mg/dL 0.3-1.0 [facility] Calcium [Mass/volume] in Ser um or PlasmaOrdered By: Regino Metcalf on 03-10-2023 Calcium [Mass/Vol] 9.0 mg/dL 8.6-10.3 [facility] Carbon dioxide, total [Moles /volume] in Serum or PlasmaOrdered By: Regino Metcalf on 03-10-2023 CO2 [Moles/Vol] 26.6 mmol/L 21.0-31.0 [facility] Chloride [Moles/volume] in S nusrat or PlasmaOrdered By: Regino Metcalf on 03-10-2023 Chloride [Moles/Vol] 104 mmol/L 98-107 [facility] Color Auto (U)Ordered By: Norris Metcalf on 03-10-2023 Color (U) Yellow Yellow [facility] Creatine kinase [Enzymatic a ctivity/volume] in Serum or PlasmaOrdered By: Regino Metcalf on 03-10-2023 CK [Catalytic activity/Vol] 119 U/L 30-223 [facility] Creatinine [Mass/volume] in Serum or PlasmaOrdered By: Regino Metcalf on 03-10-2023 Creatinine [Mass/Vol] 0.86 mg/dL 0.60-1.20 [facility] Eosinophils Auto (Bld) [#/Vo l]Ordered By: Regino Metcalf on 03-10-2023 Eosinophils (Bld) [#/Vol] 0.1 10*3/uL 0.0-0.45 [facility] Eosinophils/100 WBC Auto (Bl d)Ordered By: Regino Metcalf on 03-10-2023 Eosinophils/100 WBC (Bld) 1.5 % . [facility] Erythrocyte distribution wid th Auto (RBC) [Ratio]Ordered By: Regino Metcalf on 03-10-2023 Erythrocyte distribution width (RBC) [Ratio] 13.3 % 11.9-15.3 [facility] Globulin Calc (S) [Mass/Vol] Ordered By: Regino Metcalf on 03-10-2023 Globulin (S) [Mass/Vol] 3.0 g/dL [facility] Glucose [Mass/volume] in Ser um or PlasmaOrdered By: Regino Metcalf on 03-10-2023 Glucose [Mass/Vol] 95 mg/dL 70-100 [facility] Comment on above: ADA recommended refe rence rangeRandom Glucose Reference Range is dependent on time and content of last meal. Glucose of more than 200 mg/dL in a nonstressed, ambulatory subject supports the diagnosis of Diabetes Mellitus. Hematocrit Auto (Bld) [Volum e fraction]Ordered By: Regino Metcalf on 03-10-2023 Hematocrit (Bld) [Volume fraction] 43.2 % 34.0-46.4 [facility] Hemoglobin [Mass/volume] in BloodOrdered By: Regino Metcalf on 03-10-2023 Hemoglobin (Bld) [Mass/Vol] 14.6 g/dL 11.8-15.4 [facility] Ketones Auto test strip (U) [Mass/Vol]Ordered By: Regino Metcalf on 03-10-2023 Ketones (U) [Mass/Vol] Negative Negative [facility] Laboratory - CoagulationOrde red By: Regino Metcalf on 03-10-2023 PT Coag (PPP) [Time] 11.3 s 9.0-12.9 [facility] Leukocytes [#/volume] correc toya for nucleated erythrocytes in Blood by Automated counOrdered By: Regino Metcalf on 03-10-2023 WBC corrected for nucl RBC Auto (Bld) [#/Vol] 8.9 10*3/uL 3.8-11.6 [facility] Lymphocytes Auto (Bld) [#/Vo l]Ordered By: Regino Metcalf on 03-10-2023 Lymphocytes (Bld) [#/Vol] 3.8 10*3/uL 1.00-4.8 [facility] Lymphocytes/100 WBC Auto (Bl d)Ordered By: Regino Metcalf on 03-10-2023 Lymphocytes/100 WBC (Bld) 42.3 % . [facility] MCH Auto (RBC) [Entitic mass ]Ordered By: Regino Metcalf on 03-10-2023 MCH (RBC) [Entitic mass] 30.5 pg 24.7-34.3 [facility] MCHC Auto (RBC) [Mass/Vol]Or dered By: Regino Metcalf on 03-10-2023 MCHC (RBC) [Mass/Vol] 33.8 g/dL 32.0-35.0 [facility] MCV Auto (RBC) [Entitic vol] Ordered By: Regino Metcalf on 03-10-2023 MCV (RBC) [Entitic vol] 90.2 fL 80-100 [facility] Magnesium [Mass/volume] in S nusrat or PlasmaOrdered By: Regino Metcalf on 03-10-2023 Magnesium [Mass/Vol] 2.1 mg/dL 1.9-2.7 [facility] Monocyte distribution width [Entitic volume] in Blood by AutomatedOrdered By: Regino Metcalf on 03-10-2023 Monocyte distribution width Auto (Bld) [Entitic vol] 19.08 % 0.00-20.00 [facility] Monocytes Auto (Bld) [#/Vol] Ordered By: Regino Metcalf on 03-10-2023 Monocytes (Bld) [#/Vol] 0.8 10*3/uL 0.0-0.8 [facility] Monocytes/100 WBC Auto (Bld) Ordered By: Regino Metcalf on 03-10-2023 Monocytes/100 WBC (Bld) 8.9 % . [facility] Natriuretic peptide B [Mass/ Vol]Ordered By: Regino Metcalf on 03-10-2023 Natriuretic peptide B (Bld) [Mass/Vol] 28.0 pg/mL 5-100 [facility] Neutrophils Auto (Bld) [#/Vo l]Ordered By: Regino Metcalf on 03-10-2023 Neutrophils (Bld) [#/Vol] 4.1 10*3/uL 1.8-7.7 [facility] Neutrophils/100 WBC Auto (Bl d)Ordered By: Regino Metcalf on 03-10-2023 Neutrophils/100 WBC (Bld) 45.8 % . [facility] Nitrite Test strip Ql (U)Ord ered By: Regino Metcalf on 03-10-2023 Nitrite Ql (U) Negative Negative [facility] No Panel InformationOrdered By: Regino Metcalf on 03-10-2023 D-Dimer Quantitative (PE/DVT) < 200 ng/mL 0-243 [facility] Comment on above: The reference range [...] conditions. Estimated GFR (CKD-EPI) > 60.0 mL/Min [facility] Creatinine Clearance (Chem 95.11 [facility] Nucleated erythrocytes [Pres ence] in Blood by Automated countOrdered By: Regino Metcalf on 03-10-2023 Nucleated RBC Auto Ql (Bld) 0.1 /100{WBC} 0-0.5 [facility] Platelet mean volume Auto (B ld) [Entitic vol]Ordered By: Regino Metcalf on 03-10-2023 Platelet mean volume (Bld) [Entitic vol] 9.2 fL 6.3-10.7 [facility] Platelet poor plasma interna tional normalized ratio (INR) by coagulation assay (relatOrdered By: Regino Metcalf on 03-10-2023 INR Coag (PPP) [Relative time] 1.0 {INR} [facility] Comment on above: INR Therapeutic Rang [...] 03-10-2023 Platelets (Bld) [#/Vol] 187 10*3/uL 150-450 [facility] Potassium [Moles/volume] in Serum or PlasmaOrdered By: Regino Metcalf on 03-10-2023 Potassium [Moles/Vol] 3.7 mmol/L 3.5-5.1 [facility] Protein Auto test strip (U) [Mass/Vol]Ordered By: Regino Metcalf on 03-10-2023 Protein (U) [Mass/Vol] Negative Negative [facility] Protein [Mass/volume] in Ser um or PlasmaOrdered By: Regino Metcalf on 03-10-2023 Protein [Mass/Vol] 7.1 g/dL 6.4-8.9 [facility] RBC Auto (Bld) [#/Vol]Ordere d By: Regino Metcalf on 03-10-2023 RBC (Bld) [#/Vol] 4.79 10*6/uL 3.60-5.00 [facility] Serum or plasma albumin/glob ulin mass ratioOrdered By: Regino Metcalf on 03-10-2023 Albumin/Globulin [Mass ratio] 1.4 {ratio} [facility] Serum or plasma anion gap de terminationOrdered By: Regino Metcalf on 03-10-2023 Anion gap [Moles/Vol] 15.1 mmol/L 6.0-15.0 [facility] Serum or plasma non-glucuron idated bilirubin measurement (mass/volume)Ordered By: Regino Metcalf on 03-10-2023 Bilirubin.indirect [Mass/Vol] 0.4 mg/dL [facility] Sodium [Moles/volume] in Ser um or PlasmaOrdered By: Regino Metcalf on 03-10-2023 Sodium [Moles/Vol] 142 mmol/L 136-145 [facility] Specific gravity Auto test s trip (U) [Rel density]Ordered By: Regino Metcalf on 03-10-2023 Specific gravity (U) [Rel density] 1.021 1.001-1.03 0 [facility] Thyrotropin [Units/volume] i n Serum or PlasmaOrdered By: Regino Metcalf on 03-10-2023 TSH Qn 2.28 m[IU]/L 0.45-5.33 [facility] Thyroxine (T4) free [Mass/vo lume] in Serum or PlasmaOrdered By: Regino Metcalf on 03-10-2023 Free T4 [Mass/Vol] 0.77 ng/dL 0.61-1.12 [facility] Troponin I.cardiac [Mass/vol ume] in Serum or Plasma by Detection limit <= 0.01 ng/Ordered By: Regino Metcalf on 03-10-2023 Troponin I.cardiac DL <= 0.01 ng/mL [Mass/Vol] 3.2 pg/mL 0.0-15.0 [facility] Urea nitrogen [Mass/volume] in Serum or PlasmaOrdered By: Regino Metcalf on 03-10-2023 Urea nitrogen [Mass/Vol] 14 mg/dL 7-25 [facility] Urine clarity by refractomet ry automatedOrdered By: Regino Metcalf on 03-10-2023 Clarity Refractometry automated (U) Clear Clear [facility] Urine glucose measurement by automated test strip (mass/volume)Ordered By: Regino Metcalf on 03-10-2023 Glucose Auto test strip (U) [Mass/Vol] Normal mg/dL Normal [facility] Urine hemoglobin detection b y automated test stripOrdered By: Regino Metcalf on 03-10-2023 Hemoglobin Auto test strip Ql (U) Negative Negative [facility] Urine leukocyte esterase det ection by automated test stripOrdered By: Regino Metcalf on 03-10-2023 Leukocyte esterase Auto test strip Ql (U) Negative Negative [facility] Urobilinogen Auto test strip (U) [Mass/Vol]Ordered By: Regino Metcalf on 03-10-2023 Urobilinogen (U) [Mass/Vol] Normal mg/dL Normal [facility] WBC Auto (Bld) [#/Vol]Ordere d By: Regino Metcalf on 03-10-2023 WBC (Bld) [#/Vol] 8.9 10*3/uL 3.8-11.6 [facility] pH Auto test strip (U)Ordere d By: Regino Metcalf on 03-10-2023 pH (U) 5.5 [pH] 5.0-9.[address] [facility] [address] Abdomen/Pelvis w/o Contra melvin 03-22-2022 CT Abdomen/Pelvis w/o Contrast CLINICAL HISTORY: [...] by Dm Taylor on 03/22/2022 0937 Normal [facility] Specialist Comprehensive Metabolic Pane seb 12-19-2021 Albumin [Mass/Vol] 4.4 g/dL Normal 3.6-5.1 Izabel[facility] Comment on above: Performed By: #### C MP #### [facility] [address], [place] [id number] Albumin/Globulin [Mass ratio] 1.7 {ratio} Normal 1.0-2.5 [facility] Comment on above: Performed By: #### C MP #### [facility] [address], [place] [id number] ALP [Catalytic activity/Vol] 76 U/L Normal 35-119 [facility] Comment on above: Performed By: #### C MP #### [facility] [address] [place], [place] [id number] ALT [Catalytic activity/Vol] 22 U/L Normal 6-33 [facility] Comment on above: Result Comment: 07/05 Female reference range changed. Performed By: #### C MP #### [facility] [address], [place] [id number] Anion gap [Moles/Vol] 16 mmol/L Normal 12-20 [facility] Comment on above: Result Comment: Effe ctive 08/10/2019 reference range changed. Performed By: #### C MP #### [facility] [address], [place] [id number] AST [Catalytic activity/Vol] 25 U/L Normal 9-34 [facility] Comment on above: Performed By: #### C MP #### [facility] [address], [place] [id number] Bilirubin [Mass/Vol] 0.50 mg/dL Normal 0.30-1.20 [facility] Comment on above: Performed By: #### C MP #### [facility] [address], [place] [id number] BUN/CREA 17 Ratio Normal 6-22 [facility] Comment on above: Performed By: #### C MP #### [facility] [address], [place] [id number] Calcium [Mass/Vol] 9.8 mg/dL Normal 8.6-10.2 [facility] Comment on above: Performed By: #### C MP #### [facility] [address], [place] [id number] Chloride [Moles/Vol] 103 mmol/L Normal 98-107 [facility] Comment on above: Performed By: #### C MP #### [facility] [address], [place] [id number] CO2 [Moles/Vol] 26 mmol/L Normal 20-31 [facility] Comment on above: Performed By: #### C MP #### [facility] [address], [place] [id number] Creatinine [Mass/Vol] 0.8 mg/dL Normal 0.6-1.4 [facility] Comment on above: Performed By: #### C MP #### [facility] [address], [place] [id number] eGFRAA 95 mL/min/1.73m2 Normal >60 [facility] Specialist Comment on above: Performed By: #### C MP #### [facility] [address], [place] [id number] eGFRNAA 79 mL/min/1.73m2 Normal >60 [facility] Specialist Comment on above: Performed By: #### C MP #### [facility] [address], [place] [id number] Globulin (S) [Mass/Vol] 2.6 g/dL Normal 1.9-3.7 Daria [facility] Comment on above: Performed By: #### C MP #### [facility] [address], [place] [id number] Glucose [Mass/Vol] 128 mg/dL High 65-99 [facility] Engineering Director Comment on above: Result Comment: For FASTING Glucose --- ADA reference ranges: Normal 65-99 mg/dl Prediabetes 100-125 Diabetes >/= 126 Performed By: #### C MP #### [facility] [address], [place] [id number] Potassium [Moles/Vol] 3.3 mmol/L Low 3.5-5.5 [facility] Comment on above: Performed By: #### C MP #### [facility] [address], [place] [id number] Protein [Mass/Vol] 7.0 g/dL Normal 6.1-8.1 [facility] Director Comment on above: Performed By: #### C MP #### [facility] [address], [place] [id number] Sodium [Moles/Vol] 142 mmol/L Normal 135-146 [facility] Director Comment on above: Performed By: #### C MP #### [facility] [address] [place], [place] [id number] Urea nitrogen [Mass/Vol] 13 mg/dL Normal 7-25 [facility] Specialist Comment on above: Performed By: #### C SALTY #### [facility] [address], [place] [id number] CHEMISTRYOrdered By: SYSTEM SYSTEM on 12-15-2021 Troponin [...] PM) Normal Negative [facility] UA Auto SS Mcgehee.plasma/Mcgehee. RBC (Bld) [Mass ratio] 0-3 /HPF Normal [...] [facility] UA Auto SS Urobilinogen Qn (U) [id number] {Tana'U}/dL Normal 0.0 - 1.0 EU/dL [facility] [...] : DR MATTHEW RIVER M.D. Admission #: [id number] Family : Order #: [id number] CLICK HERE TO VIEW EXAM RADIOLOGY REPORT [...] Medeiros M.D. on 09/11/2019 at 11:22 Normal [facility] Vital Signs Date Time Vital Sign Value Performing Clinician Faci lity 05-19-2024 13:04-0400 Body height 161.29 cm PA-C Lenora Santos Work Phone: [facility] 05-19-2024 13:04-0400 Body mass index (BMI) [Ratio] 42 kg/m2 PA-C Lenora Santos Work Phone: [facility] 05-19-2024 13:04-0400 Body weight 109.31 kg PA-C Lenora Santos Work Phone: [facility] 05-18-2024 13:54-0400 Body height 162.6 cm Lenora Santos PA Work Phone: [facility] 05-18-2024 13:54-0400 Body mass index (BMI) [Ratio] 41.75 kg/m2 Lenora Santos PA Work Phone: [facility] 05-18-2024 13:54-0400 Body temperature 98.01 [degF] Lenora Santos PA Work Phone: [facility] 05-18-2024 13:54-0400 Body weight 110.31 kg Lenora Tom PA Work Phone: [facility] 05-18-2024 13:54-0400 Heart rate 63 /min Lenora Tom PA Work Phone: [facility] 05-18-2024 13:54-0400 SaO2% (BldA) [Mass fraction] 98 % Lenora Tom PA Work Phone: [facility] 05-04-2024 13:52-0400 Body mass index (BMI) [Ratio] 43.1 kg/m2 PA-C Lenora Tom Work Phone: [facility] 05-04-2024 10:54-0400 Body height 161.29 cm PA-C Lenora Tom Work Phone: [facility] 05-04-2024 10:54-0400 Body weight 112.17 kg PA-C Lenora Tom Work Phone: [facility] 04-30-2024 14:49-0400 Body mass index (BMI) [Ratio] 43.1 kg/m2 PA-C Lenora Tom Work Phone: [facility] 04-30-2024 14:41-0400 Body height 161.29 cm PA-C Lenora Tom Work Phone: [facility] 04-30-2024 14:41-0400 Body weight 111.13 kg PA-C Lenora Tom Work Phone: [facility] 04-24-2024 09:40-0400 Body height 161.29 cm PA-C Lenora Tom Work Phone: [facility] 04-24-2024 09:40-0400 Body mass index (BMI) [Ratio] 43.8 kg/m2 PA-C Lenora Tom Work Phone: [facility] 04-24-2024 09:40-0400 Body weight 114.05 kg PA-C Lenora Tom Work Phone: [facility] 04-24-2024 09:40-0400 Diastolic blood pressure 65 mm[Hg] PA-C Lenora Tom Work Phone: [facility] 04-24-2024 09:40-0400 Heart rate 72 /min PA-C Lenora Santos Work Phone: [facility] 04-24-2024 09:40-0400 Respiratory rate 18 /min PA-C Lenora Tom Work Phone: [facility] 04-24-2024 09:40-0400 SaO2% (BldA) [Mass fraction] 100 % PA-C Lenora Tom Work Phone: [facility] 04-24-2024 09:40-0400 Systolic blood pressure 128 mm[Hg] PA-C Lenora Tom Work Phone: [facility] 03-18-2024 08:17-0400 Diastolic blood pressure 58 mm[Hg] Tamiko Robert [facility] 03-18-2024 08:17-0400 Heart rate 64 /min Tamiko Robert [facility] 03-18-2024 08:17-0400 Mean blood pressure 82 mm[Hg] Tamiko Robert [facility] 03-18-2024 08:17-0400 Systolic blood pressure 130 mm[Hg] Tamiko Robert [facility] 03-17-2024 09:01-0400 Body height 161.29 cm PA-C Lenoraevert Santos Work Phone: [facility] 03-17-2024 09:01-0400 Body mass index (BMI) [Ratio] 43.1 kg/m2 PA-C Lenora Santos Work Phone: [facility] 03-17-2024 09:01-0400 Body weight 112.12 kg PA-C Lenora Santos Work Phone: [facility] 03-17-2024 09:01-0400 Diastolic blood pressure 73 mm[Hg] PA-C Lenora Tom Work Phone: [facility] 03-17-2024 09:01-0400 Heart rate 60 /min PA-C Lenoar Tom Work Phone: [facility] 03-17-2024 09:01-0400 Respiratory rate 18 /min PA-C Lenora Tom Work Phone: [facility] 03-17-2024 09:01-0400 SaO2% (BldA) [Mass fraction] 99 % PA-C Lenora Santos Work Phone: [facility] 03-17-2024 09:01-0400 Systolic blood pressure 133 mm[Hg] PA-C Lenora Santos Work Phone: [facility] 03-03-2024 15:00-0400 Heart rate 62 /min Hu Davis [facility] 03-03-2024 15:00-0400 SaO2% (BldA) [Mass fraction] 100 % Hu Davis [facility] 03-03-2024 15:00-0400 Diastolic blood pressure 76 mm[Hg] Hu Davis [facility] 03-03-2024 15:00-0400 Mean blood pressure 97 mm[Hg] Hu Davis [facility] 03-03-2024 15:00-0400 Systolic blood pressure 141 mm[Hg] Hu Davis [facility] 03-03-2024 14:59-0400 Respiratory rate 16 /min Hu Davis [facility] 03-03-2024 14:52-0400 Diastolic blood pressure 92 mm[Hg] Hu Davis [facility] 03-03-2024 14:52-0400 Heart rate 60 /min Hu Davis [facility] 03-03-2024 14:52-0400 SaO2% (BldA) [Mass fraction] 100 % Hu Davis [facility] 03-03-2024 14:52-0400 Systolic blood pressure 153 mm[Hg] Hu Davis [facility] 03-03-2024 13:53-0400 Heart rate 66 /min Hu Davis [facility] 03-03-2024 13:53-0400 SaO2% (BldA) [Mass fraction] 99 % Hu Davis [facility] 03-03-2024 13:53-0400 Respiratory rate 14 /min Hu Davis [facility] 03-03-2024 13:53-0400 Diastolic blood pressure 84 mm[Hg] Hu Davis [facility] 03-03-2024 13:53-0400 Mean blood pressure 108 mm[Hg] Hu Davis [facility] 03-03-2024 13:53-0400 Systolic blood pressure 158 mm[Hg] Hu Davis [facility] 03-03-2024 13:53-0400 Body temperature 98.24 [degF] Lui Ryan [facility] 01-29-2024 08:14-0400 Diastolic blood pressure 73 mm[Hg] Tamiko Robert [facility] 01-29-2024 08:14-0400 Heart rate 66 /min Tamiko Robert [facility] 01-29-2024 08:14-0400 Mean blood pressure 91 mm[Hg] Tamiko Robert [facility] 01-29-2024 08:14-0400 Respiratory rate 14 /min Tamiko Robert [facility] 01-29-2024 08:14-0400 Systolic blood pressure 128 mm[Hg] Tamiko Robert [facility] 12-24-2023 13:08-0400 Body height 161.29 cm PA-C Lenora Tom Work Phone: [facility] 12-24-2023 13:08-0400 Body mass index (BMI) [Ratio] 43.8 kg/m2 PA-C Lenora Tom Work Phone: [facility] 12-24-2023 13:08-0400 Body weight 114.02 kg PA-C Lenora Tom Work Phone: [facility] 12-24-2023 13:08-0400 Diastolic blood pressure 71 mm[Hg] PA-C Lenora Tom Work Phone: [facility] 12-24-2023 13:08-0400 Heart rate 62 /min PA-C Lenora Tom Work Phone: [facility] 12-24-2023 13:08-0400 Systolic blood pressure 132 mm[Hg] PA-C Lenora Tom Work Phone: [facility] 12-06-2023 11:40-0400 Diastolic blood pressure 70 mm[Hg] PA-C Lenora Tom Work Phone: [facility] 12-06-2023 11:40-0400 Heart rate 59 /min PA-C Lenora Tom Work Phone: [facility] 12-06-2023 11:40-0400 Respiratory rate 16 /min PA-C Lenora Tom Work Phone: [facility] 12-06-2023 11:40-0400 SaO2% (BldA) [Mass fraction] 99 % PA-C Lenora Santos Work Phone: [facility] 12-06-2023 11:40-0400 Systolic blood pressure 120 mm[Hg] PA-C Lenora Santos Work Phone: [facility] 12-06-2023 09:13-0400 Body height 162.56 cm PA-C Lenora Santos Work Phone: [facility] 12-06-2023 09:13-0400 Body weight 116.57 kg PA-C Lenora Santos Work Phone: [facility] 11-11-2023 09:08-0400 Body height 162.6 cm Alfredo Yancey i, MD Work Phone: [facility] [facility] 11-11-2023 09:08-0400 Body weight 116 kg Alfredo Yancey i, MD Work Phone: [facility] 11-11-2023 09:08-0400 Diastolic blood pressure 81 mm[Hg] Alfredo Cruz MD Work Phone: [facility] 11-11-2023 09:08-0400 Heart rate 75 /min Alfredo Yancey i, MD Work Phone: [facility] 11-11-2023 09:08-0400 SaO2% (BldA) [Mass fraction] 100 % Alfredo Cruz MD Work Phone: [facility] 11-11-2023 09:08-0400 Systolic blood pressure 138 mm[Hg] Alfredo Cruz MD Work Phone: [facility] 10-30-2023 11:30-0400 Heart rate 60 /min Hu Davis [facility] 10-30-2023 11:30-0400 SaO2% (BldA) [Mass fraction] 100 % Hu Davis [facility] 10-30-2023 11:30-0400 Diastolic blood pressure 83 mm[Hg] Hu Davis [facility] 10-30-2023 11:30-0400 Mean blood pressure 100 mm[Hg] Hu Davis [facility] 10-30-2023 11:30-0400 Systolic blood pressure 134 mm[Hg] Hu Davis [facility] 10-30-2023 11:20-0400 Diastolic blood pressure 81 mm[Hg] Hu Davis [facility] 10-30-2023 11:20-0400 Heart rate 65 /min Hu Davis [facility] 10-30-2023 11:20-0400 SaO2% (BldA) [Mass fraction] 100 % Hu Davis [facility] 10-30-2023 11:20-0400 Systolic blood pressure 164 mm[Hg] Hu Davis [facility] 10-30-2023 10:21-0400 Heart rate 66 /min Hu Davis [facility] 10-30-2023 10:21-0400 SaO2% (BldA) [Mass fraction] 99 % Hu Davis [facility] 10-30-2023 10:21-0400 Body temperature 97.88 [degF] Hu Davis [facility] 10-30-2023 10:20-0400 Diastolic blood pressure 81 mm[Hg] Lui Ryan [facility] 10-30-2023 10:20-0400 Mean blood pressure 98 mm[Hg] Lui Ryan [facility] 10-30-2023 10:20-0400 Systolic blood pressure 133 mm[Hg] Hu Davis [facility] 10-30-2023 10:18-0400 Respiratory rate 14 /min Hu Davis [facility] 10-18-2023 13:58-0400 Body height 162.56 cm PA Lenora Santos Work Phone: [facility] 10-18-2023 13:58-0400 Body mass index (BMI) [Ratio] 45.8 kg/m2 PA Lenora Santos Work Phone: [facility] 10-18-2023 13:58-0400 Body weight 121.1 kg PA Lenora Santos Work Phone: [facility] 10-17-2023 08:12-0400 Diastolic blood pressure 75 mm[Hg] Hu Davis [facility] 10-17-2023 08:12-0400 Heart rate 75 /min Hu Davis [facility] 10-17-2023 08:12-0400 Mean blood pressure 94 mm[Hg] Hu Davis [facility] 10-17-2023 08:12-0400 Respiratory rate 14 /min Hu Davis [facility] 10-17-2023 08:12-0400 Systolic blood pressure 131 mm[Hg] Hu Davis [facility] 09-28-2023 14:56-0500 Body temperature 98.6 [degF] [facility] 09-28-2023 14:56-0500 Diastolic blood pressure 85 mm[Hg] [facility] 09-28-2023 14:56-0500 Heart rate 107 /min [facility] 09-28-2023 14:56-0500 Respiratory rate 18 /min [facility] 09-28-2023 14:56-0500 SaO2% (BldA) [Mass fraction] 100 % [facility] 09-28-2023 14:56-0500 Systolic blood pressure 138 mm[Hg] [facility] 09-24-2023 13:26-0500 Body height 162.6 cm Alfredo Yancey i, MD Work Phone: [facility] 09-24-2023 13:26-0500 Body weight 115 kg Alfredo Yancey i, MD Work Phone: [facility] 09-24-2023 13:26-0500 Diastolic blood pressure 84 mm[Hg] Alfredo Cruz MD Work Phone: [facility] 09-24-2023 13:26-0500 Heart rate 84 /min Alfredo Yancey i, MD Work Phone: [facility] 09-24-2023 13:26-0500 SaO2% (BldA) [Mass fraction] 99 % Alfredo Cruz MD Work Phone: [facility] 09-24-2023 13:26-0500 Systolic blood pressure 145 mm[Hg] Alfredo Cruz MD Work Phone: [facility] 09-19-2023 10:33-0500 Body height 162.56 cm PA-Regina Santos Work Phone: [facility] 09-19-2023 10:07-0500 Body mass index (BMI) [Ratio] 45.8 kg/m2 PAWojciech Santos Work Phone: [facility] 09-19-2023 10:07-0500 Body weight 121.1 kg PAWojciech Santos Work Phone: [facility] 09-12-2023 13:27-0500 Blood Pressure Location Forest Gonzalez [facility] 09-12-2023 13:27-0500 Diastolic blood pressure 78 mm[Hg] Forest Gonzalez [facility] 09-12-2023 13:27-0500 Heart rate 77 /min Forest Gonzalez [facility] 09-12-2023 13:27-0500 SaO2% (BldA) [Mass fraction] 99 % Forest Gonzalez [facility] 09-12-2023 13:27-0500 Systolic blood pressure 130 mm[Hg] Forest Gonzalez [facility] 08-12-2023 17:05-0500 Body height 162.56 cm PA-C Lenora Tom Work Phone: [facility] 08-12-2023 17:05-0500 Body temperature 98.2 [degF] PA-C Lenora Tom Work Phone: [facility] 08-12-2023 17:05-0500 Body weight 125.19 kg PA-C Lenora Tom Work Phone: [facility] 08-12-2023 17:05-0500 Diastolic blood pressure 94 mm[Hg] PA-C Lenora Tom Work Phone: [facility] 08-12-2023 17:05-0500 Heart rate 70 /min PA-C Lenora Tom Work Phone: [facility] 08-12-2023 17:05-0500 Respiratory rate 21 /min PA-C Lenora Tom Work Phone: [facility] 08-12-2023 17:05-0500 SaO2% (BldA) [Mass fraction] 100 % PA-C Lenora Tom Work Phone: [facility] 08-12-2023 17:05-0500 Systolic blood pressure 184 mm[Hg] PA-C Lenora Tom Work Phone: [facility] 08-02-2023 13:45-0500 Diastolic blood pressure 74 mm[Hg] Forest Christofferson [facility] 08-02-2023 13:45-0500 Mean blood pressure 85 mm[Hg] Forest Christofferson [facility] 08-02-2023 13:45-0500 Systolic blood pressure 108 mm[Hg] Forest Christofferson [facility] 08-02-2023 13:36-0500 Blood Pressure Location Forest Gonzalez [facility] 08-02-2023 13:36-0500 Diastolic blood pressure 101 mm[Hg] Forest Christofferson [facility] 08-02-2023 13:36-0500 Heart rate 76 /min Forest Colungaofferson [facility] 08-02-2023 13:36-0500 SaO2% (BldA) [Mass fraction] 100 % Forest Gonzalez [facility] 08-02-2023 13:36-0500 Systolic blood pressure 170 mm[Hg] Forest Colungaoffscooter [facility] 06-24-2023 14:30-0500 Body weight 119.3 kg Elly Galicia MD Work Phone: [facility] 06-24-2023 14:30-0500 Diastolic blood pressure 78 mm[Hg] Elly Galicia MD Work Phone: [facility] 06-24-2023 14:30-0500 Heart rate 78 /min Elly Galicia MD Work Phone: [facility] 06-24-2023 14:30-0500 SaO2% (BldA) [Mass fraction] 100 % Elly Galicia MD Work Phone: [facility] 06-24-2023 14:30-0500 Systolic blood pressure 143 mm[Hg] Elly Galicia MD Work Phone: [facility] 05-27-2023 10:40-0400 Body height 162.56 cm Lenora Blades Other [employer] Other 05-27-2023 10:40-0400 Body mass index (BMI) [Ratio] 46.17 kg/m2 Lenora Blades Other [employer] Other 05-27-2023 10:40-0400 Body weight 122.02 kg Lenora Blades Other [employer] Other 03-10-2023 18:05-0400 Diastolic blood pressure 74 mm[Hg] PA-C Lenora Tom Work Phone: [facility] 03-10-2023 18:05-0400 Heart rate 64 /min PA-C Lenora Tom Work Phone: [facility] 03-10-2023 18:05-0400 SaO2% (BldA) [Mass fraction] 100 % PA-C Lenora Tom Work Phone: [facility] 03-10-2023 18:05-0400 Systolic blood pressure 166 mm[Hg] PA-C Lenora Tom Work Phone: [facility] 03-10-2023 16:38-0400 Respiratory rate 18 /min PA-C Lenora Tom Work Phone: [facility] 03-10-2023 14:41-0400 Body height 161.29 cm PA-C Lenora Tom Work Phone: [facility] 03-10-2023 14:41-0400 Body temperature 98.6 [degF] PA-C Lenora Tom Work Phone: [facility] 03-10-2023 14:41-0400 Body weight 120.5 kg THELMA Lenora Santos Work Phone: [facility] 12-15-2021 17:15-0400 Diastolic blood pressure 67 mm[Hg] James Pastore [facility] 12-15-2021 17:15-0400 Heart rate 65 /min James Susie [facility] 12-15-2021 17:15-0400 Mean blood pressure 87 mm[Hg] James Susie [facility] 12-15-2021 17:15-0400 Respiratory rate 26 /min James Pastore [facility] 12-15-2021 17:15-0400 SaO2% (BldA) [Mass fraction] 100 % James Susie [facility] 12-15-2021 17:15-0400 Systolic blood pressure 128 mm[Hg] James Susie [facility] 12-15-2021 16:00-0400 Diastolic blood pressure 68 mm[Hg] James Susie [facility] 12-15-2021 16:00-0400 Mean blood pressure 82 mm[Hg] James Susie [facility] 12-15-2021 16:00-0400 Respiratory rate 11 /min James Susie [facility] 12-15-2021 16:00-0400 Systolic blood pressure 111 mm[Hg] James Susie [facility] 12-15-2021 15:00-0400 Respiratory rate 12 /min James Susie [facility] 12-15-2021 15:00-0400 Systolic blood pressure 126 mm[Hg] James Susie [facility] 12-15-2021 12:49-0400 gluc 100 mg/dL James Richards [facility] 12-15-2021 12:49-0400 gluc James Richards [facility] 12-15-2021 12:45-0400 Body temperature 98.06 [degF] James Richards [facility] 12-15-2021 12:45-0400 Heart rate 66 /min James Richards [facility] 12-15-2021 12:45-0400 Respiratory rate 18 /min James Richards [facility] 10-05-2014 15:47-0500 Blood Pressure Location Lenora TOM [facility] 10-05-2014 15:47-0500 Blood Pressure Location RAJNI MORA [facility] 10-05-2014 15:47-0500 Body temperature 98.06 [degF] Lenora TOM [facility] 10-05-2014 15:47-0500 BP/Pulse Patient Position Lenora TOM [facility] 10-05-2014 15:47-0500 BP/Pulse Patient Position RAJNI MORGAN [facility] 10-05-2014 15:47-0500 Diastolic blood pressure 86 mm[Hg] Lenora SANTOS [facility] 10-05-2014 15:47-0500 Heart rate 72 /min Lenora SANTOS [facility] 10-05-2014 15:47-0500 Mean blood pressure 105 mm[Hg] Lenora TOM [facility] 10-05-2014 15:47-0500 Respiratory rate 16 /min Lenora TOM [facility] 10-05-2014 15:47-0500 SaO2% (BldA) [Mass fraction] 97 % Lenora TOM [facility] 10-05-2014 15:47-0500 Systolic blood pressure 142 mm[Hg] Lenora TOM [facility] Encounters Encounter Date Encounter Type Care Provider Facility Start: 05-21-2024 End: 05-21-2024 Clinisync Result Encounter Generic External Data Provider [facility] External [facility] Unsolicited Start: 05-21-2024 End: 05-21-2024 Clinisync Result Encounter Generic External Data Provider [facility] External Department Unsolicited Start: 05-21-2024 End: 05-21-2024 ambulatory PA-C Lenora Santos Work Phone: [facility] Work Phone: Start: 05-21-2024 End: 05-21-2024 Departed Referred PA-C Lenora Santos Work Phone: [facility] Start: 05-19-2024 End: 05-19-2024 ambulatory PA-C Lenora Santos Work Phone: [facility] Work Phone: Start: 05-19-2024 End: 05-19-2024 Patient encounter procedure PA-C Lenora Santos Work Phone: [facility] Work Phone: Start: 05-18-2024 End: 05-18-2024 Roryboo flowsaj Almanza MD Work Phone: [facility] Start: 05-18-2024 End: 05-18-2024 Bamboo flowsheet Marge Almanza MD Work Phone: [facility] Start: 05-18-2024 End: 05-18-2024 Office outpatient visit 25 minutes Lenora Santos PA Work Phone: [facility] Comment on above: Type 2 diabetes zachery itus without complication, with long-term current use of insulin (CMS/HCC) Start: 05-18-2024 End: 05-18-2024 ambulatory LENORA SANTOS Not Available Start: 05-18-2024 End: 05-18-2024 Office outpatient new 45 minutes Marge Almanza MD Work Phone: [facility] Comment on above: Type 2 diabetes zachery itus without complication, without long- term current use of insulin (CMS/HCC) (Primary Dx) Start: 05-18-2024 End: 05-18-2024 ambulatory MARGE ALMANZA Not Available Start: 05-13-2024 End: 05-13-2024 ambulatory PA-C Lenora Santos Work Phone: [facility] Work Phone: Start: 05-13-2024 End: 05-13-2024 Patient encounter procedure PA-C Lenora Santos Work Phone: [facility] Work Phone: Start: 05-07-2024 End: 05-07-2024 Clinisync Result Encounter Generic External Data Provider [facility] External Department Unsolicited Start: 05-07-2024 End: 05-07-2024 Clinisync Result Encounter Generic External Data Provider [facility] External Department Unsolicited Start: 05-04-2024 End: 05-04-2024 Patient encounter procedure PA-C Lenora Santos Work Phone: [facility] [place] Work Phone: Start: 05-04-2024 End: 05-04-2024 ambulatory PA-C Lenora Santos Work Phone: [facility] Work Phone: Start: 05-04-2024 End: 05-04-2024 ambulatory PA-C Lenora Santos Work Phone: [facility] Work Phone: Start: 05-04-2024 End: 05-04-2024 Patient encounter procedure PA-C Lenora Santos Work Phone: [facility] Work Phone: Start: 04-30-2024 End: 04-30-2024 Patient encounter procedure PA-C Lenora Santos Work Phone: [facility] [place] Work Phone: Start: 04-30-2024 End: 04-30-2024 ambulatory PA-C Lenora Santos Work Phone: [facility] Work Phone: Start: 04-30-2024 End: 04-30-2024 ambulatory PA-C Lenora Santos Work Phone: [facility] Work Phone: Start: 04-30-2024 End: 04-30-2024 Patient encounter procedure PA-C Lenora Santos Work Phone: [facility] Work Phone: Start: 04-24-2024 End: 04-24-2024 ambulatory PA-C Lenora Santos Work Phone: [facility] Work Phone: Start: 04-24-2024 End: 04-24-2024 Patient encounter procedure PA-C Lenora Santos Work Phone: [facility] Work Phone: Start: 04-16-2024 End: 04-16-2024 ambulatory LENORA SANTOS Not Available Start: 03-30-2024 Non-patient / Non-visit PA-C Lenora Santos Work Phone: [facility] Work Phone: Start: 03-28-2024 End: 03-28-2024 Patient encounter procedure PA-C Lenora Santos Work Phone: [facility] [place] Work Phone: Start: 03-28-2024 End: 03-28-2024 ambulatory PA-C Lenora Santos Work Phone: [facility] Work Phone: Start: 03-24-2024 End: 03-24-2024 ambulatory PA-C Lenora Santos Work Phone: [facility] Work Phone: Start: 03-24-2024 End: 03-24-2024 Patient encounter procedure PA-C Lenora Santso Work Phone: [facility] Work Phone: Start: 03-18-2024 End: 03-18-2024 ambulatory Tamiko Robert Facility:[facility] Start: 03-18-2024 End: 03-18-2024 Pain Management Tamiko Robert [facility] Start: 03-17-2024 End: 03-17-2024 ambulatory PA-C Lenora Santos Work Phone: [facility] Work Phone: Start: 03-17-2024 End: 03-17-2024 Patient encounter procedure PA-C Lenora Santos Work Phone: [facility] Work Phone: Start: 03-06-2024 End: 03-06-2024 Patient encounter procedure PA-C Lenora Santos Work Phone: [facility] [place] Work Phone: Start: 03-06-2024 End: 03-06-2024 ambulatory MEHRAN-Regina Santos Work Phone: [facility] Work Phone: Start: 03-03-2024 End: 03-03-2024 ambulatory Hu Davis Facility:[facility] Start: 03-03-2024 End: 03-03-2024 Pain Management Hu Davis [facility] Start: 01-29-2024 End: 01-29-2024 ambulatory Tamiko Robert Facility:[facility] Start: 01-29-2024 End: 01-29-2024 Pain Management [facility] Start: 12-24-2023 End: 12-24-2023 ambulatory MEHRAN-Regina Santos Work Phone: [facility] Work Phone: Start: 12-24-2023 End: 12-24-2023 Patient encounter procedure THELMA Santos Work Phone: [facility] Work Phone: Start: 12-06-2023 End: 12-06-2023 Admission to same day surgery center THELMA Santos Work Phone: [facility] [place] Work Phone: Start: 12-06-2023 End: 12-06-2023 ambulatory MEHRAN-Regina Santos Work Phone: [facility] Work Phone: Start: 12-05-2023 End: 12-05-2023 ambulatory LENORA SANTOS Not Available Start: 11-11-2023 End: 11-11-2023 ambulatory ALFREDO CRUZ Facility:[facility] Start: 11-11-2023 End: 11-11-2023 Patient encounter procedure Alfredo Cruz MD Work Phone: Endocrinology Comment on above: Class 3 severe obesi ty with serious comorbidity and body mass index (BMI) of 40.0 to 44.9 in adult, unspecified obesity type (HCC) (Primary Dx) Start: 11-07-2023 End: 11-07-2023 ambulatory LENORA SANTOS Not Available Start: 10-30-2023 End: 10-30-2023 ambulatory Hu Davis Facility:[facility] Start: 10-30-2023 End: 10-30-2023 Pain Management Hu Davis [facility] Start: 10-24-2023 End: 10-24-2023 Patient encounter procedure PA-C Lenora Santos Work Phone: [facility] Work Phone: Start: 10-24-2023 End: 10-24-2023 ambulatory PA-C Lenora Santos Work Phone: [facility] Work Phone: Start: 10-18-2023 End: 10-18-2023 ambulatory PA-C Lenora Santos Work Phone: [facility] Work Phone: Start: 10-18-2023 End: 10-18-2023 Patient encounter procedure PA-C Lenora Santos Work Phone: [facility] Work Phone: Start: 10-17-2023 End: 10-17-2023 ambulatory DO Hu Davis Facility:[facility] Start: 10-17-2023 End: 10-17-2023 Pain Management Hu Davis [facility] Start: 10-15-2023 End: 10-16-2023 Pre-admission assessment Lenora SANTOS [facility] Start: 10-04-2023 End: 10-04-2023 ambulatory LENORA SANTOS Not Available Start: 09-30-2023 End: 09-30-2023 ambulatory LENORA SANTOS Not Available Start: 09-28-2023 End: 09-28-2023 Emergency department patient visit Cody Young [facility] Start: 09-25-2023 End: 09-25-2023 ambulatory PA-C Lenora Santos Work Phone: [facility] Work Phone: Comment on above: [employer] Start: 09-25-2023 Non-patient / Non-visit PA-C Lenora Santos Work Phone: [facility] Work Phone: Start: 09-25-2023 End: 09-25-2023 Patient encounter procedure PA-C Lenora Santos Work Phone: [facility] Work Phone: Start: 09-24-2023 End: 09-24-2023 ambulatory [facility] Luda [place] Facility:[facility] Start: 09-24-2023 End: 09-24-2023 Patient encounter procedure Alfredo Cruz MD Work Phone: Endocrinology Comment on above: Class 3 severe obesi ty with serious comorbidity and body mass index (BMI) of 40.0 to 44.9 in adult, unspecified obesity type (HCC) Start: 09-20-2023 End: 09-20-2023 ambulatory LENORA SANTOS Not Available Start: 09-19-2023 End: 09-19-2023 ambulatory PA-C Lenora Santos Work Phone: [facility] Work Phone: Start: 09-19-2023 End: 09-19-2023 Patient encounter procedure THELMA Santos Work Phone: [facility] Work Phone: Start: 09-18-2023 Refill Lenora Ramsey ers PA Work Phone: [facility] Comment on above: Primary insomnia Start: 09-12-2023 End: 09-12-2023 ambulatory XXXX NONE Facility:[facility] Start: 09-12-2023 End: 09-12-2023 Patient encounter procedure Forest Gonzalez [facility] Start: 09-09-2023 Chart abstracting Lenora LAURENT Work Phone: [facility] Start: 08-30-2023 End: 08-30-2023 ambulatory Lenora SANTOS Facility:[facility] Start: 08-30-2023 End: 08-30-2023 Patient encounter procedure Lenora SANTOS [facility] Start: 08-15-2023 End: 09-17-2023 Pre-admission assessment Hu Davis [facility] Start: 08-13-2023 End: 08-13-2023 ambulatory LENORA SANTOS Not Available Start: 08-13-2023 End: 08-13-2023 ambulatory Forest Gonzalze Facility:[facility] Start: 08-13-2023 End: 08-13-2023 Patient encounter procedure Forest Gonzalez [facility] Start: 08-12-2023 End: 08-12-2023 Emergency department patient visit THELMA Santos Work Phone: [facility]-Emergency Room Work Phone: Start: 08-12-2023 End: 08-12-2023 Emergency department patient visit James Richards Facility:[facility] Start: 08-09-2023 End: 08-09-2023 ambulatory LENORA SANTOS Not Available Start: 08-02-2023 End: 08-02-2023 ambulatory Lenora SANTOS Facility:[facility] Start: 08-02-2023 End: 08-02-2023 Patient encounter procedure Forest Gonzalez [facility] Start: 06-24-2023 End: 06-25-2023 ambulatory NELI SLATER Facility:[facility] Start: 06-24-2023 End: 06-24-2023 Patient encounter procedure Elly Galicia MD Work Phone: Endocrinology Comment on above: Acquired hypothyroid ism (Primary Dx); Class 3 severe obesity with serious comorbidity and body mass index (BMI) of 40.0 to 44.9 in adult, unspecified obesity type (HCC) Start: 06-21-2023 ambulatory Lenora SANTOS Facil ity:[facility] Start: 05-27-2023 End: 05-27-2023 ambulatory Lenora Alvarez Other [facility] [employer] Other Start: 05-27-2023 Office outpatient ne w 45 minutes Lenora Alvarez [facility] Start: 05-14-2023 End: 05-14-2023 ambulatory ELLY GALICIA Facility:[facility] Start: 05-06-2023 End: 05-07-2023 ambulatory NELUPE GALICIA Facility:[facility] Start: 04-05-2023 End: 04-05-2023 ambulatory Juan Bennett Facility:[facility] Start: 04-05-2023 End: 04-05-2023 Patient encounter procedure Juan Bennett [facility] Start: 03-10-2023 End: 03-10-2023 Emergency department patient visit THELMA Santos Work Phone: [facility]-Emergency Room Work Phone: Start: 01-16-2023 End: 01-16-2023 Patient encounter procedure Lenora SANTOS [facility] Start: 10-10-2022 End: 10-10-2022 Patient encounter procedure Jaun Bennett [facility] Start: 03-29-2022 End: 05-01-2022 Pre-admission assessment Jose L TRIPP [facility] Start: 03-28-2022 End: 03-28-2022 Patient encounter procedure RAJNI MORA [facility] Mario Alberto Start: 12-15-2021 End: 12-15-2021 Emergency department patient visit James Richards [facility] Start: 12-14-2021 End: 12-14-2021 Patient encounter procedure Lenora SANTOS [facility] Start: 09-11-2019 End: 09-12-2019 Patient encounter procedure MATTHEW H PERICO Facility:[facility] Procedures Date Procedure Procedure Detail Performing Clinician Start: 05-21-2024 ALL CBC WITH AUTO DIFF Generic External Data Provider Start: 05-18-2024 Hemoglobin glycosyla toya a1c Lenora LAURENT Work Phone: Start: 05-07-2024 ALL CBC WITH AUTO DIFF [...] above: L4-L5 Start: 07-25-2015 Colonoscopy Lenora So mmers PA Work Phone: Start: 10-08-2014 left extracorporeal shockwave lithotripsy Lenora SANTOS Start: 10-05-2014 cystoscopy, left retrograde ureteropyelogram, and double-J stent insertion Lenora SANTOS Start: 04-09-2014 robotic-assisted hysterectomy with bilateral salpingectomy Lenora SANTOS Start: 12-30-2009 right foot surgery 3 De kat SANTOS Comment on above: x3 ankle Start: 12-30-2009 right foot surgery 4 Am isabel SanteVet Comment on above: x3 ankle Start: 12-30-2009 right foot surgery 5 Am isabel SanteVet Comment on above: x3 ankle Appendectomy Lenora SANTOS Comment on above: right ovary removed Arthroscopy of shoulder Sheyla SANTOS Bilateral tubal ligation Corinne SANTOS Cholecystectomy Lenora FORTE Laboratory test resu lt abnormal Abnormal laboratory test PA-C Lenora Santos Work Phone: Repair of ligament Lenora Stauffer YASMIN Comment on above: right foot - mediall y Plan of Treatment Date Care Activity Detail Author Start: 09-24-2026 Diabetes Screening Diabetes Screenin [facility] Start: 05-18-2026 Glaucoma screening Diabetes: R etinopathy Screening [facility] Start: 05-06-2026 Diabetes Screening Diabetes Screenin [facility] Start: 07-25-2025 Screening for malign ant neoplasm of colon [facility] Start: 05-20-2025 End: 05-20-2025 Patient encounter procedure 05/20/2025 9:00 AM EDT Office Visit [facility] [address] [place] [address] Marge Almanza MD [address] [place], [place] [id number] [facility] Start: 05-04-2025 Urine screening for protein Diabetes: Urine Protein Screening [facility] Start: 08-30-2024 Screening for malign ant neoplasm of breast Mammogram [facility] Start: 08-20-2024 End: 08-20-2024 Patient encounter procedure 08/20/2024 2:00 PM EST Office Visit [facility] [address] [place] [phone] Lenora Santos PA [address] [place] [address] [facility] Start: 08-18-2024 Hemoglobin A1c measurement Diabetes: Hemoglobin A1C [facility] Start: 05-19-2024 End: 05-19-2024 Patient encounter procedure 05/19/2024 8:00 AM EDT Office Visit [facility] [address] [place] [phone] Lenora Santos PA [address] [place] [address] [facility] Start: 05-18-2024 End: 05-18-2024 Patient encounter procedure [facility] Comment on above: Arrived Start: 05-04-2024 [facility] Start: 04-05-2024 Influenza vaccination Influenza Vacc ine (#1) [facility] Start: 12-24-2023 Patient referral [facility] Work Phone: Start: 12-06-2023 [facility] Start: 12-06-2023 CT guided biopsy [facility] Start: 12-06-[address] guided biopsy [facility] Start: 09-25-2023 [facility] Start: 09-25-2023 Actin smooth muscle IgG Ab [Units/volume] in Serum [facility] Start: 09-25-2023 Cefuroxime free [Mass/volume] in Serum or Plasma [facility] Start: 09-25-2023 Ceruloplasmin [Mass/volume] in Serum or Plasma [facility] Start: 09-25-2023 Hepatitis B core ant ibody measurement [facility] Start: 09-25-2023 Hepatitis B virus marshall rface Ab [Presence] in Serum [facility] Start: 09-25-2023 [facility] Start: 09-25-2023 Ultrasonography of liver US liver [facility] Start: 09-25-2023 US Liver [facility] Start: 09-24-2023 End: 12-24-2023 Comprehensive metabolic 2000 panel - Serum or Plasma [facility] Work Phone: Comment on above: Expected: 09/24/2023 , Expires: 12/24/2023 Start: 09-09-2023 End: 09-09-2023 Patient encounter procedure 09/09/2023 8:30 AM EST Office Visit [facility] [address] [place] [phone] Lenora Santos PA [address] [place] [address] [facility] Start: 08-05-2023 Behavioral Health Screening Behavioral Health Screening [facility] Start: 08-05-2023 [facility] Start: 06-24-2023 End: 09-23-2023 Thyrotropin [Units/volume] in Serum or Plasma [facility] Work Phone: Comment on above: Expected: 06/24/2023 , Expires: 09/23/2023 Start: 06-24-2023 End: 09-23-2023 Thyroxine (T4) free [Mass/volume] in Serum or Plasma [facility] Work Phone: Comment on above: Expected: 06/24/2023 , Expires: 09/23/2023 Start: 04-05-2023 Covid-19 Vaccine () Covid-19 Vaccine () [facility] Start: 12-14-2022 Screening for malign ant neoplasm of breast [facility] Start: 08-05-2022 Depression Assessment Depression Ass essment [facility] Start: 05-01-2022 Urine microalbumin profile DTaP,Tdap,Td Vaccine (2 - Td or Tdap) [facility] Start: 2019 Shingrix Vaccine (1 of 2) Joaquin grix Vaccine (1 of 2) [facility] Start: 2014 Cologuard (FIT-DNA) Cologuard (FIT-D NA) [facility] Start: 2014 Colonoscopy Colonoscopy [facility] Start: 2014 Colorectal Cancer Screening Colorectal Cancer Screening [facility] Start: [address] Colonography [facility] Start: 2014 Fecal Occult Blood Fecal Occult Bloo d [facility] Start: 2014 Lipid 1996 panel - S nusrat or Plasma Lipid Screening [facility] Start: 2014 Lipid panel Lipid Screening [facility] Start: 2014 Screening for malign ant neoplasm of colon [facility] Start: 2014 Sigmoidoscopy Sigmoidoscopy [facility] Start: 2009 Mammography Mammogram Screening [facility] Start: 1999 HPV Testing HPV Testing [facility] Start: 1999 Screening for malign ant neoplasm of cervix [facility] Start: 1990 Pap Testing Pap Testing [facility] Start: 1990 Screening for malign ant neoplasm of cervix [facility] Start: 1988 Hepatitis B Vaccine (1 of 3 - 19+ 3-dose series) Hepatitis B Vaccine (1 of 3 - 19+ 3-dose series) [facility] Start: 1987 Annual PCP Team [employer] gideon Disease Visit Annual PCP Team Chronic Disease Visit [facility] Start: 1987 BP Controlled (<130/80) BP Controlle d (<130/80) [facility] Start: 1987 Hepatitis C Screening Hepatitis C [facility] Start: 1987 Hepatitis C screening Hepatitis C [facility] Start: 1987 HIV Screening HIV Screening [facility] Start: 1987 HIV screening HIV Screening [facility] Start: 1969 Hepatitis B Vaccine (1 of 3 - 3-dose series) Hepatitis B Vaccine (1 of 3 - 3-dose series) [facility] Start: 1969 Screening for malign ant neoplasm of colon [facility] Actin smooth muscle IgG Ab [Units/volume] in Serum [facility] Albumin/Globulin ratio [facility] Alpha 1 antitrypsin [Mass/volume] in Serum or Plasma [facility] Alpha 1 antitrypsin [Mass/volume] in Serum or Plasma [facility] Alpha 1 antitrypsin phenotyping [Identifier] in Serum or Plasma by Immunofixation [facility] Anion gap measurement [facility] Cefuroxime free [Mass/volume] in Serum or Plasma [facility] Ceruloplasmin [Mass/volume] in Serum or Plasma [facility] CT guided biopsy [facility] Globulin [Mass/volum e] in Serum [facility] Glucose [Mass/volume ] in Serum or Plasma --2 hours post 75 g glucose PO [facility] Hepatic function panel [facility] Hepatitis B core ant ibody measurement [facility] Hepatitis B virus marshall rface Ab [Presence] in Serum [facility] Hepatitis B virus marshall rface Ag [Presence] in Serum or Plasma by Immunoassay [facility] Hepatitis C virus Ig G Ab [Presence] in Serum or Plasma by Immunoassay [facility] Microalbumin/Creatin ine [Mass Ratio] in Urine [facility] Patient Education [facility] Work Phone: Patient referral [facility] Work Phone: [facility] Immunizations Immunization Date Immunization Notes Care Provider [facility] 04-30-2023 influenza, injectabl e, quadrivalent, contains preservative Lenora LAURENT Work Phone: [facility] 04-30-2023 influenza virus vaccine, unspecified formulation Generic Provider [facility] 05-14-2022 influenza, injectabl e, quadrivalent, preservative free Lenora LAURENT Work Phone: [facility] 05-14-2022 Moderna Bivalent Booster Vaccination Lenora LAURENT Work Phone: [facility] 07-05-2021 Moderna SARS-CoV-2 Booster Vaccination Lenora LAURENT Work Phone: [facility] 06-08-2021 influenza, injectabl e, quadrivalent, contains preservative Lenora Tom PA Work Phone: [facility] 11-18-2020 COVID-19, mRNA, LNP- S, PF, 30 mcg/0.3 mL dose; Translations: [Pfizer-BioNTech COVID-19 Vaccine] Lenora SANTOS [facility] Comment on above: Reason for Medicatio n: Prophylaxis 10-21-2020 COVID-19, mRNA, LNP- S, PF, 30 mcg/0.3 mL dose; Translations: [Pfizer-BioNTech COVID-19 Vaccine] Lenora SANTOS [facility] Comment on above: Reason for Medicatio n: Prophylaxis 05-13-2020 influenza, injectabl e, quadrivalent, preservative free Lenora Tom PA Work Phone: [facility] 05-13-2020 Seasonal, quadrivale nt, recombinant, injectable influenza vaccine, preservative free Lenora Tom PA Work Phone: [facility] 04-30-2019 influenza virus vaccine, unspecified formulation Lenora TOM [facility] 04-30-2019 influenza, injectabl e, quadrivalent, preservative free Lenora Tom PA Work Phone: [facility] 05-20-2018 Influenza, injectabl e, Madin [place] Canine Kidney, preservative free, quadrivalent Lenora Tom PA Work Phone: [facility] 05-05-2018 influenza, injectabl e, quadrivalent, preservative free Lenora Tom PA Work Phone: [facility] 06-07-2017 influenza, injectabl e, quadrivalent, preservative free Lenora Tom PA Work Phone: [facility] 05-29-2016 influenza, injectabl e, quadrivalent, preservative free Lenora Tom PA Work Phone: [facility] 05-26-2015 influenza, seasonal, injectable Lenora LAURENT Work Phone: [facility] 05-01-2012 tetanus toxoid, redu meng diphtheria toxoid, and acellular pertussis vaccine, adsorbed Lenora SANTOS [facility] Comment on above: Early/Late Reason: N ursing Judgment 07-21-2009 novel [id number], preservative-free, injectable Lenora LAURENT Work Phone: [facility] Payers Date Payer Category Payer [facility] [id number] 2023 Unknown [id number]. [id number] 2023 Unknown [id number] 2023 Private Health Insurance [id number] 2023 Self-pay [id number] 2022 Private Health Insurance [id number] 2022 Private Health Insurance [id number] 1969 Unknown [id number] 2.16.840.1.656409.3.579.2. 593 1969 Unknown [id number] 2.16.840.1.601827.3.579.2. 72 1969 Unknown [id number] 2.16.840.1.174659.3.579.2 72 1969 Unknown [id number] 2.16.840.1.246262.3.579.2 72 1969 Unknown [id number] 2.16.840.1.640671.3.579.2 1969 Unknown [id number] 2.16.840.1.523748.3.579.2 72 1969 Unknown [id number] 2.16.840.1.132659.3.579.2 72 1969 Unknown [id number] 2.16.840.1.079175.3.579.2 72 1969 Unknown [id number] 2.16.840.1.039078.3.579.2 72 1969 Unknown [id number] 2.16.840.1.903427.3.579.2 72 1969 Unknown [id number] 2.16.840.1.807133.3.579.2 72 1969 Unknown [id number] 2.16.840.1.237415.3.579.2 72 1969 Unknown [id number] 2.16.840.1.102939.3.579.2 1969 Unknown [id number] 2.16.840.1.126299.3.579.2 72 1969 Unknown [id number] 2.16.840.1.252632.3.579.2. 9 1969 Unknown [id number] 2.16.840.1.072519.3.579.2. 1258 1969 Unknown [id number] 2.16.840.1.951605.3.579.2. 1258 1969 Unknown [id number] 2.16.840.1.345428.3.579.2. 1258 1969 Unknown [id number] 2.16.840.1.137197.3.579.2. 1258 1969 Unknown [id number] 2.16.840.1.865084.3.579.2. 1258 1969 Unknown [id number] 2.16.840.1.227303.3.579.2. 1258 1969 Unknown [id number] 2.840.1.502312.3.579.2. 1258 1969 Unknown [id number] 2.840.1.287504.3.579.2. 1258 1969 Unknown [id number] 2.16.840.1.881563.3.579.2. 1258 1959 Unknown [id number] Unknown O [id number] Unknown [id number] 2.16.840.1.838829.3.579.2. 531 Unknown [id number] 2.16.840.1.355130.3.579.2. 531 Unknown [id number] 2.16.840.1.149556.3.579.2. 531 Unknown [id number] 2.16.840.1.129651.3.579.2. 531 Unknown [id number] 2.16.840.1.729610.3.579.2. 531 Unknown [id number] 2.16.840.1.335219.3.579.2. 531 Unknown [id number] 2.16.840.1.364588.3.579.2. 531 Unknown [id number] 2..840.1.939613.3.579.2. 531 Unknown [id number] 2..840.1.517582.3.579.2. 531 Unknown [id number] 2..840.1.978478.3.579.2. 531 Social History Date Type Detail Facility Start: 09-08-2019 End: 01-04-2023 Tobacco smoking status Never smoked tobacco (finding) [facility] Tobacco smoking status Never [facility] Start: 06-24-2023 End: 04-14-2024 Sex Assigned At Female [facility] Start: 1970 Sex Assigned At Female [facility] Start: 06-24-2023 End: 11-11-2023 Alcohol intake Current drinker of alcohol (finding) [facility] Start: 06-24-2023 End: 04-14-2024 History of Social function [facility] Start: 04-12-2011 Alcohol Comment [facility]x/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 J Hepatol. 2020 Feb;73(1):26-39.Performed at: [address] [id number] Director: Leyla Britt MD, Phone: [phone] 01-29-2024 Functional Status N/A [facility] 10-30-2023 Functional Status N/A [facility] 10-17-2023 Functional Status N/A [facility] 09-28-2023 Functional Status N/A [facility] 09-12-2023 Functional Status No [facility] 08-02-2023 Functional Status No [facility] 03-28-2022 Functional Status N/A [facility] Clinical Notes 12-15-2021 to 05-19-2024 Note Date [...] after initiation of Resmetirom Author Tank Xavier [facility] Authored March 17, 2024 10 :13am [...] effects. 3. Prediabetes with recent A1c of 6.1-yfucd-kcma treatment with long-term healthy lifestyle change, decreased [...] sleep hygiene and weight loss also. 7. [id number]-[id number]. Sent here by GI. 8. Kriss's thyroiditis [...] Our exercise program was recommended with our ice maker/obesity exercise group. Handout given. Our free weekly [...] and benefits of prescribed meds discussed. Initial ftxl-ey-efpv interview/evaluation. The patient was counseled in detail on the options for weight loss in an individual setting. 69 minutes was spent caring for the patient, counseling/educating patient on the options for the treatment of obesity and related healthcare issues. The program's treatment goals were reviewed with the patient. Each aspect of the program was discussed with the patient. Author Tank Xavier [facility] Authored April 24, 2024 11:27am Highest [...] back. 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 She has a new diagnosis of type [...] test of 242 with recent A1c of 6.1-fwqvf-enpy treatment with long-term healthy lifestyle change, decreased [...] sleep hygiene and weight loss also. 7. JXNV-vlggip-ilxxur. Sent here by GI. 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 9. Kidney stones-will try to avoid Topamax. Increase water intake. Stop Pepsi. Follow up with me in 6 weeks. New labs needed: Up-to-date. She will need an A1c again in 3 months after following the program. She needs at least yearly metabolic blood work. [facility] Work Phone: [phone] 943-401810-14-2024 History of Present illness Narrative* MEHRAN Leggett - 05/18/2024 2:00 PM EDT Images from the original note were not included. Dejah Dykes is a 53 y.o. female presents with chief complaint of Diabetes (A1C checked in office) and Follow-up (Check on potassium and BP meds) HPI: BP 120/76 History of Present Illness The patient is a 53-year-old female who presents for evaluation of multiple medical concerns. She reports feeling well overall. Recent blood work conducted in her doctor's office showed fluctuating potassium levels, with one reading at 4.2 and another at 3.9. She is scheduled for surgery thisweek. Her blood pressure medication appears to be effective, maintaining her blood pressure around 120/74-76. She has been on Ozempic for four weeks, currently at a dose of 0.25 mg, which she plans to increase to 0.5 mg after her surgery next week. She has undergone three separate blood tests within a week for her liver specialist and is due for a three-month checkup tomorrow. She expresses concern about her consistently low neutrophil count and wonders if it could be related to her potassium levels. She has researched potential causes of potassium imbalance, including liver disease, and plans to discuss this with her doctor. She has a trip planned for the end of October 2023 and hopes to be fully recovered by then. She has noticed a spot on her lip that has been present for approximately three months. Initially, she thought it was a blood blister caused by biting her lip, but it has not disappeared. The spot has slightly reduced in size and does not cause pain. It became purple and enlarged over the past few weeks, but its condition has improved recently. She had a full skin checkup earlier this year, during which a spot on her arm was biopsied and found to be benign. MEDICATIONS: Current Outpatient Medications Medication Instructions cyclobenzaprine (FLEXERIL) 10 mg, Oral, 3 times daily PRN estradiol (ESTRACE) 1 g, Vaginal, Daily, Please give three tubes levothyroxine (SYNTHROID) 50 mcg, Oral, Daily before breakfast metFORMIN (OSM) (FORTAMET) 1,000 mg, Daily with evening meal metoprolol succinate XL (TOPROL-XL) 25 mg, Oral, Daily, Do not crush or chew. minocycline 100 mg, Oral, Daily montelukast (SINGULAIR) 10 mg, Oral, Nightly potassium chloride CR (K-Tab) 20 MEQ ER tablet 20 mEq, Oral, 2 times daily Rezdiffra 100 MG tablet semaglutide (Ozempic, 0.25 or 0.5 MG/DOSE,) 2 MG/1.5ML solution pen-injector Inject under the skin zolpidem (Ambien) 10 MG tablet TAKE 1 TABLET BY MOUTH ONCE DAILY AT BEDTIME NEEDED FOR SLEEP ALLERGIES: Allergies Allergen Reactions Acetaminophen Other Unable to take due to liver. Bactrim [Sulfamethoxazole-Trimethoprim] Other Yeast infection Hydrocodone-Acetaminophen Hallucinations Other Itching and Other Watery eyes, runny nose, sneezing Wound Dressing Adhesive Itching and Rash Review of Systems General: Denies fever, chills, fatigue, FRYE or weight loss/gain CV: Denies CP, palpitations or swelling in legs Resp: denies cough, SOB or wheezing GI: Denies abd pain/n/v/c/d Skin: Denies rash Neuro: Denies LH or dizziness Medical, Surgical, Family, and Social History reviewed. OBJECTIVE: Visit Vitals Pulse 63 Temp 98 F (Temporal) Ht 5' 4 Wt 243 lb 3.2 oz SpO2 98% BMI 41.75 kg/m OB Status Hysterectomy Smoking Status Never BSA 2.23 m BP Readings from Last 3 Encounters: 04/16/24 128/80 12/05/23 126/72 11/07/23 126/84 Wt Readings from Last 3 Encounters: 05/18/24 243 lb 3.2 oz 04/16/24 247 lb 12.8 oz 12/05/23 257 lb 9.6 oz Physical Exam Physical Exam General: alert & oriented, NAD Head: NC/AT Oral Cavity: MMM Skin: warm, dry Heart: RRR, No m/r/g, S1S2 nml Lungs: CTA b/l Abdomen: soft, ND/NT, BS wnl Musculoskeletal: normal gait Extremities: no clubbing, cyanosis or edema Neurological: nonfocal Psych: mood/affect full range Results Laboratory Studies Potassium level was 3.91. Neutrophils were 42.4. ASSESSMENT AND PLAN: Assessment & Plan 1. Hypokalemia. Her potassium levels have been fluctuating, with recent values of 4.2 and 3.9. This fluctuation maybe due to her diuretic medication or liver condition. She is advised to continue her current potassium supplement regimen. Further evaluation of her liver function will be discussed with her liver doctor. If potassium levels remain unstable, additional investigations will be considered. 2. Lip lesion. She has had a lesion on her lip for 2-3 months, which has decreased in size but persists. It does not hurt and was initially thought to be a blood blister. A referral to a customer engagement analyst for further evaluation and possible removal was recommended. 3. Hypertension. Her blood pressure has been well-controlled, with recent readings around 120/74- 76. She reports no issues with her current blood pressure medication. She should continue her current regimen. 4. Weight management. She is on week four of Ozempic at a dose of 0.25 mg. She plans to increase the dose to 0.5 mg afterher upcoming surgery. She should continue with the current plan and monitor her progress. Assessment/Plan Problem List Items Addressed This Visit None Visit Diagnoses Type 2 diabetes mellitus without complication, with long-term current use of insulin ([facility]) Relevant Orders POCT glycated hemoglobin, total docked device (Completed) Health Maintenance Due Topic Date Due Cervical Cancer Screening Never done Diabetes: Hemoglobin A1C 12/23/2023 documented in this [facility]10-14-2024 History of Present illness Narrative* BRITTANY Hernandez [...] any problems or concerns. documented in this [facility]08-14-2024 Evaluation + Plan note Extracted from: Title:Pain [...] anything from our services. DIMPLE score: 40%. [facility] 08-14-2024 NoteConsultation Note Patient: DEJAH [...] Insomnia, # 30 tab(s), Refills(s) 1, Pharmacy: [facility]/pharmacy #[id number], 161, cm, 09/08/19 14:29:00 EST, Height/Length Measured, 110.5, kg, 09/08/19 14:29:00 EST, Weight Measured Estrace 0.1 mg/g Cream: See Instructions, 42.5 gm, Refill(s) 5, insert 1gm vaginally & apply pea sized amount around the urethra nightly x 3 weeks, then 3x per week thereafter, [facility]/pharmacy #[id number], 162.5, cm, 04/24/22 15:43:00 EDT, Height/Length Dosing, 105, kg, 03/28/22 9:0... Ziac 5 mg-6.25 mg oral tablet: 1 tab(s), Oral, Daily, 90 tab(s), Refill(s) 1, [facility]/pharmacy #[id number] minocycline 100 mg Cap: 100 mg, Oral, Daily, # 100 cap(s), Refills(s) 1, Pharmacy: [facility]/pharmacy #[id number] Documented Medications Documented [...] Problems Lumbar disc herniation / SNOMED CT 772926726 / Confirmed L4-5 fusion Allergic rhinitis, seasonal / SNOMED CT 548140987 / Confirmed H/O: HTN (hypertension) / SNOMED CT 171492432 / Confirmed Depression / SNOMED CT 050150010 / Confirmed Fatty liver / SNOMED CT 316271575 / Confirmed Acne rosacea / SNOMED CT 2546339309 / Confirmed Osteochondritis dissecans / 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 / Confirmed Class 3 severe obesity with body mass index (BMI) of 40.0 to 44.9 in adult / SNOMED CT 1669494639 /Confirmed Non-tobacco user / SNOMED CT 044746002 / Confirmed Influenza vaccination up to date / SNOMED CT 550531380 / Confirmed Urine frequency / SNOMED CT 798322887 / Confirmed Kidney stones / SNOMED CT 287867628 / Confirmed Frequent UTI / SNOMED CT 271060638 / Confirmed Resolved: DVT / SNOMED CT 418995071 Resolved: Kidney stones / SNOMED CT [id number] Objective Vital Signs 03/18/2024 8:17 EDT Peripheral [...] limited range of motion Integumentary: Warm, Dry, [place]. Neurologic: Alert, Oriented. Psychiatric: Cooperative, Appropriate mood [...] are maintained. Intraosseous hemangio (more content not included)...[facility] Comment: Electronically Signed By: Yesica RENEE, Tamiko\.br\Date and Time Signed: 03/18/24 08:39 [id number] Evaluation note* Author Tank [facility] Authored March 17, 2024 10 :13am [...] effects. 3. Prediabetes with recent A1c of 6.7-pkrsv-mgrl treatment with long-term healthy lifestyle change, decreased [...] sleep hygiene and weight loss also. 7. SKHO-jdzwah-wolfgu. Sent here by GI. 8. Kriss's thyroiditis [...] Our exercise program was recommended with our ice maker/obesity exercise group. Handout given. Our free weekly [...] and benefits of prescribed meds discussed. Initial mxkn-kf-font interview/evaluation. The patient was counseled in detail on the options for weight loss in an individual setting. 69 minutes was spent caring for the patient, counseling/educating patient on the options for the treatment of obesity and related healthcare issues. The program's treatment goals were reviewed with the patient. Each aspect of the program was discussed with the patient. [facility] Work Phone: 1(546) 399-136008-13-2024 Evaluation note* Author Tank [facility] Authored March 17, 2024 10 :13am [...] effects. 3. Prediabetes with recent A1c of 6.5-pkdor-nsob treatment with long-term healthy lifestyle change, decreased [...] sleep hygiene and weight loss also. 7. QGVO-sqscwa-yyaqin. Sent here by GI. 8. Kriss's thyroiditis [...] Our exercise program was recommended with our ice maker/obesity exercise group. Handout given. Our free weekly [...] and benefits of prescribed meds discussed. Initial wfgb-uj-tldx interview/evaluation. The patient was counseled in detail on the options for weight loss in an individual setting. 69 minutes was spent caring for the patient, counseling/educating patient on the options for the treatment of obesity and related healthcare issues. The program's treatment goals were reviewed with the patient. Each aspect of the program was discussed with the patient. Author Sofiya [facility] Authored April 24, 2024 9:59am Highest weight: [...] effects. 3. Prediabetes with recent A1c of 6.9-qijbo-xxeq treatment with long-term healthy lifestyle change, decreased [...] sleep hygiene and weight loss also. 7. UMGE-jwaifc-fsjzwx. Sent here by GI. 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 9. Kidney stones-will try to avoid Topamax. Increase water intake. Stop Pepsi. Follow up with me in 6 weeks. New labs needed: Up-to-date except for going to do a 2-hour glucose tolerance test off metformin. [facility] Work Phone: 1([phone]) 260-347008-13-2024 Evaluation note* Author Tank [facility] Authored March 17, 2024 10 :13am [...] effects. 3. Prediabetes with recent A1c of 6.6-unniy-bykn treatment with long-term healthy lifestyle change, decreased [...] sleep hygiene and weight loss also. 7. RLWU-ldlbhu-raanuk. Sent here by GI. 8. Kriss's thyroiditis [...] Our exercise program was recommended with our ice maker/obesity exercise group. Handout given. Our free weekly [...] and benefits of prescribed meds discussed. Initial wpip-do-hoqp interview/evaluation. The patient was counseled in detail on the options for weight loss in an individual setting. 69 minutes was spent caring for the patient, counseling/educating patient on the options for the treatment of obesity and related healthcare issues. The program's treatment goals were reviewed with the patient. Each aspect of the program was discussed with the patient. Author Tank [facility] Authored April 24, 2024 11:27am Highest [...] back. 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 She has a new diagnosis of type [...] test of 242 with recent A1c of 6.4-lzqcw-djmj treatment with long-term healthy lifestyle change, decreased [...] sleep hygiene and weight loss also. 7. GTBS-wdmhrf-yedwhr. Sent here by GI. 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 9. Kidney stones-will try to avoid Topamax. Increase water intake. Stop Pepsi. Follow up with me in 6 weeks. New labs needed: Up-to-date. She will need an A1c again in 3 months after following the program. She needs at least yearly metabolic blood work. [facility] Work Phone: 1(249) 420-267807-30-2024 NoteOperative Report Diagnosis: M54.16, lumbar radiculopathy Procedure: [...] and agrees to comply to currently prescribed/recommended therapies.[facility] Comment on above:Result Comment: Electronically Signed By: Hu Davis DO\.br\Date and Time Signed: 03/03/24 14:58 [id number] Evaluation + Plan note Extracted from: Title:Bilateral [...] Date:03/18/2024 08:15:00 AM Scheduled Provider:Tamiko Robert PA-C Location[facility] Appointment Type:Pain Management - Follow Up (FT) [facility] [id number] Evaluation + Plan noteExtracted from: Title:Pain Managment [...] clinic sooner if necessary. DIMPLE score: 42%. [facility]05-21-2024 Evaluation note* Author Kamilah [facility] Authored December 24, 2023 1:52p m 53-year-old [...] Resmetirom and follow-up with insurance regarding approval [facility] Work Phone: 1(736) 192-573905-21-2024 Evaluation note* Author Kamilah [facility] Authored December 24, 2023 1:52p m [...] with insurance regarding approval Author Sofiya [facility] Authored March 17, 2024 9: 11am [...] Our exercise program was recommended with our ice maker/obesity exercise group. Handout given. Our free weekly [...] and benefits of prescribed meds discussed. Initial stwl-wl-jhwy interview/evaluation. The patient was counseled in detail on the options for weight loss in an individual setting. [ ] minutes was spent caring for the patient, counseling/educating patient on the options for the treatment of obesity and related healthcare issues. The program's treatment goals were reviewed with the patient. Each aspect of the program was discussed with the patient. [facility] Work Phone: 1(664) 101-276204-08-2024 NoteHNO ID: [id number] Author: ALFREDO RCUZ MD Service: ? Author Type: Physician Type: [...] recently diagnosed with liver cirrhosis and her trailer technician and rheumatology both recommended to consider bariatric [...] for considering bariatric (weight loss) surgery at [facility] is to watch the online seminar on the following website. Registration to the weight loss program will also be done online. [email or web address] Alternatively, to schedule appointment, please call [phone] Order Specific Question: Have you discussed weight management with your patient? Answer: Yes Order Specific Question: Are you requesting assessment for possible Bariatric Surgery for your patient? Answer: Yes Order Specific Question: Does consulting provider have [facility] Epic access? Answer: Yes Follow up PRN Signed: Alfredo Cruz MD Endocrinology and Metabolism [place] [facility] History of Present illness Narrative* Alfredo [...] recently diagnosed with liver cirrhosis and her trailer technician and rheumatology both recommended to consider bariatric [...] for considering bariatric (weight loss) surgery at [facility] is to watch the online seminar on the following website. Registration to the weight loss program will also be done online. [email or web address] Alternatively, to schedule appointment, please call [phone] Order Specific Question: Have you discussed weight management with your patient? Answer: Yes Order Specific Question: Are you requesting assessment for possible Bariatric Surgery for your patient? Answer: Yes Order Specific Question: Does consulting provider have [facility] Netbooks access? Answer: Yes Follow up PRN Signed: Alfredo Cruz MD Endocrinology and Metabolism [facility] documented [facility] Instructions* Patient Instructions* Alfredo Cruz MD - 11/11/2023 9:20 AM EDT Images from the original note were not included. BARIATRIC REFERRAL The first step for considering bariatric (weight loss) surgery at [facility] is to watch the online seminar on the following website. Registration to the weight loss program will also be done online. [email or web address] Links: https://pages.[email or web address].org/ojyhbzhho-skdhvi-uzdp-program.html?_gl=1*1ly7e l6*_ga*EdRzLlU3PTRrT n7bMhH8Lal7HPx8*_ga_HWJ092SPKP*HRwwSUT5SuX3OJ6kVjCjNLzfAZT4UhE3RY0sFfIwZD.. https://www.Ning.net/pp_l318/IfhjQjqwcEgaXkkb879.asp?V=2175_Bariatric s_Full_Show_FINAL.mp4 Bariatric Service Information Session Registration: https://www.Ning.net/pp_l318/IosojpdMxntmeKdbpxbvaoxbo274.asp?_ga=1.2 67415388.045106740.1 744135851&_gl=1*2mq1if0*_ga*DwPwRkO4LVLrCi5rYqG3Gse5NCs0*_ga_HWJ092SPKP*MTcwNDM3 WtD8YO4cYyEeXBbvBXX4TwV9WL5xBnNhVS.. Alternatively, to schedule appointment, please call Link: [email or web address]/-/scassets/files/org/bariatric/guides/bmi-twyla- yik8829-hpn.ashx?la=en documented in this encounterK[facility] Evaluation + Plan note Extracted from: Title:Right [...] Date:12/19/2023 03:15:00 PM Scheduled Provider:Hu Davis DO Location:.Critical Access Hospital Appointment Type:Pain Management - Follow Up (FT) [facility]03-27-2024 Note [id number]#1.00[facility]23 NoteDiagnosis: M54.16, lumbar radiculopathy [...] and agrees to comply to currently prescribed/recommended therapies.[facility] Comment on above:Result Comment: Electronically Signed By: Hu Davis DO\.br\Date and Time Signed: 10/30/23 11:29 [id number] Evaluation + Plan note Extracted from: Title:chronic pain Author:Hu Davis DO. Date:10/17/23 Patient is presenting with c omplaints [...] for this as well as has a blocking machine operator and is working on possibility of autoimmune [...] daily, we also encouraged follow-up with her blocking machine operator to discuss possibility of any autoimmune reasons [...] with any questions or concerns that arise. [facility]03-12-2024 NotePt cancelled PT evaluation in the remind system today. Chart was prepped for this evaluation.[facility]02-24-2024 Hospital Discharge instructions Patient Education 09/28/2023 [...] managed at home with rest, fluids, and loui-fpi-yalvbhu medicines. Serious symptoms may be treated in [...] water are not available, use alcohol-based hand certified corporate travel executive. Make sure that all people in your [...] managed at home with rest, fluids, and ooxy-tju-nrfyrju medicines. This information is not intended to replace advice given to you by your health care provider. Make sure you discuss any questions you have with your health care provider. Document Revised: 07/12/2022 Document Reviewed: 07/12/2022 [employer] Patient Education 2022 [employer]. Follow Up Care 09/28/2023 14:45:50 With:TOM RENEE, Lenora Little [facility] Address: [address] [place] [address]- When:10/01/2023 [facility]02-24-2024 NoteInfectious Disease COVID-19 COVID-19, or [...] managed at home with rest, fluids, and ozlh-krn-ktrpwll medicines. ? Serious symptoms may be treated [...] condition. ? You should (more content not included)...[facility]02-24-2024 Evaluation + Plan noteExtracted from: Title:ED Note Author:Lara Reyes PA-C ate:09/28/23 1. COVID (U07.1: COVID-19) Orders: ketorolac, 30 mg = 1 mL, Injection, IntraMuscular, Once, Stop date 09/28/23 15:36:00 EST, STAT, Start date 09/28/23 15:36:00 EST, 09/28/23 15:36:00 EST Future Appointments Appointment Date:10/17/2023 08:30:00 AM Scheduled Provider:Hu Davis DO Location:.Critical Access Hospital Appointment Type:Pain Management - [facility] () [facility]02-20-2024 NoteHNO ID: [id number] Author: ALFREDO CRUZ MD Service: ? 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 You are a resident of the [facility] or [place] You are 18 years of age or [...] a valid patient HIPAA authorization. Subject to [employer] s ( [employer] ) right to terminate, rescind,revoke, or amend Card eligibility criteria and/or Card terms and conditions which may occur at [employer] s sole discretion, without notice, and for [...] a valid patient HIPAA authorization. Subject to [employer] s right to terminate, rescind, revoke, or amend Card eligibility criteria and/or Card terms and conditions which may occur at [employer] s sole discretion, without notice, and for any reason, Card expires and savings end on 08/04/2024 Video Instructions for Injecting Zepbound: https://www.[employer].com/watch?v=gA0KlXN1Hqw Link to Patient Service Rep Website https://www.Nubefy/ Savings card: https://www.Nubefy/coverage-savings Medication Guide: https://www.Nubefy/ffhh-rp-hbjuukhd Written pen instructions: https://www.Nubefy/how-to-use Tirzepatide: Patient drug information What is Zepbound? [...] under 18 years of age. Check out [employer] for savings coupon and more information regarding [...] fat or fatty foods documented in this encounterK[facility]-20-[facility] History of Present illness Narrative* Alfredo Cruz MD - 09/24/2023 1:32 PM EST Images from the original note were not included. 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 -- Discussed basic exercise recommendations, the role of exercise on weight loss and maintenance. Discussed the combination of aerobic and resistance exercise. -- Most patients benefit from a personalized exercise program. Will refer to endocrine ice maker -- Recommend gradual increase in exercise. Goal [...] log, MyFitness Pal), activity journals / trackers (Apple watch, Fit Bit, Garmin vivofit, Striiv). I will see her back [...] type (HCC) E66.01 Z68.41 Alfredo Cruz MD [facility] Endocrinology and Metabolism [facility] [phone] Medical Decision Making: Problems: Moderate: 1+ chronic illnesses with change Data: Unique source(s) for external note(s) reviewed: 1 Unique test result(s) reviewed: 3+ Unique test(s) ordered: 3+ Risk: Moderate: Drug management Medical Decision Making Level: 4 - Moderate documented in this encounterK[facility]-14-2024 Telephone encounter Note * Telephone Encounter - MEHRAN Leggett - 09/18/2023 3:45 PM EST completed [facility] [id number] Miscellaneous Notes* Telephone Encounter - MEHRAN Leggett - 09/18/2023 3:45 PM EST completed documented in this encounterTenet St. LouisSbjamfofod36-27-3094 NoteEchocardiology Procedure Exam Date/Time Accession # Ordering Echo Transthoracic 08/13/2023 09:46 EST [id number] Carlos ARCOS, Forest Jung CPT code [id number] 91998 Reason for Exam (Echo Transthoracic Complete) Abnormal ECG R94.31;Other (please specify) Report Version: 1 Study ID: [id number] [facility] [address] [place] [address] Adult Echocardiogram Report Name: DEJAH DYKES Study Date: 08/13/2023, 9: 11 AM Patient Location: [facility] : 1970 (MM/DD/YYYY) Gender: Female Age: 53 Years Height: 162.56 cm BP: 138 / 75 mmHg Weight: 124.74 kg HR: 62 bpm BSA: 2.24 m? Ordering Physician: Forest Gonzalez Referring Physician: Forest Gonzalez Performed By: Pauline Louis ANUPAMA Reason For Study: Abnormal ECG History: HTN, [...] Signed by: Forest Gonzalez MD Transcribed by: [facility] Technologist: [facility]11-20-2023 Note HNO ID: [id number] Author: Elly Galicia MD Service: ? Author [...] - Biotin- none - Amiodarone- none - Mcgehee- none - Head/neck radiation- none Interval history: [...] - 30 mmol/L 26 (more content not included)...[facility] 06-24-2023 Instructions* Patient Instructions* Elly Galicia MD - 06/24/2023 3:08 PM EST - Lab recheck today, will let you know if we need to change the dose - Weight Management consultation documented in this encounterK[facility]11-20-2023 History of Present illness Narrative* Elly Galicia [...] - Biotin- none - Amiodarone- none - Mcgehee- none - Head/neck radiation- none Interval history: [...] high (L): Data is abnormally low THYROID [facility] 02/01/2023 Component TSH Component 02/01/2023 TSH [...] 12/23/2023). Elly Galicia MD documented in this encounterK[facility]10-23-2023 Evaluation note* Encounter Date Diagnosis Assessment Notes Treatment Notes Treatment Clinical Notes May, Lumbar back pain (ICD-10 - M54.50) [employer] Other 10-02-2023 NoteHNO ID: [id number] Author: Elly Galicia MD Service: ? Author [...] - Biotin- none - Amiodarone- none - Mcgehee- none - Head/neck radiation- none I have [...] (BMI) of 40.0 to 44.9 in adult ([facility]) 02/01/2023 Essential hypertension 01/04/2023 Kidney stones 02/01/2023 [...] or stare. No scleral (more content not included)...[facility]09-01-2023 NoteHistory of Present Illness Here for [...] Follow-up With When Contact Information Donald ARCOS, Russell Ayesha, [place], [place] [address] [facility] [place] [address]- Additional Instructions: after his testing is completed [...] influenza virus vaccine, inactivated 04/30/2019 Recorded diphtheria/pertussis, cmaelia (more content not included)...[facility]Result Comment: Electronically Signed By: Juan Bennett MD\.br\Date and Time Signed: 04/05/23 10:31 EDTOther Comment: Put under wrong [id number] Hospital Discharge instructions Follow Up Care 03/13/2023 13:01:01 With:Juan Bennett MD, P[place], [place] Address: [address] [place] [address] [place] [address]- When:1 year [facility]08-24-2022 Evaluation + Plan note Diagnostic Tests Pending * UTI ([facility]) 03/28/22 [facility] 08-24-2022 Hospital Discharge instructions Patient Education 03/28/2022 10:11:51 Kidney Stones, Sbpu-af-Tcje Kidney Stones Kidney stones are rock-like masses [...] Follow these instructions at home: Medicines Take mjqw-tun-zzgkxeq and prescription medicines only as told by [...] Document Reviewed: 12/08/2019 Elsevier Patient Education 2019 [employer]. [facility] 05-13-2022 Hospital Discharge instructions Patient Education 12/15/2021 17:22:14 Paresthesia, Iclm-xi-Qnee Paresthesia Paresthesia is a burning or prickling [...] fried or sweet foods. General instructions Take qsym-qth-uoohkvm and prescription medicines only as told by [...] 2009 Document Revised: 08/17/2019 Document Reviewed: 07/31/2018 [employer] Patient Education 2020 [employer] 12/15/2021 17:22:14 Spondylolysis Spondylolysis Spondylolysis is [...] Follow these instructions at home: Medicines Take nmik-duo-rsnnsjy and prescription medicines only as told by your health care provider. Ask your health care provider if the medicine prescribed to you: ?Requires you to avoid driving or using heavy machinery. ?Can cause constipation. You may need to take these actions to prevent or treat constipation: ?Drink enough fluid to keep your urine pale yellow. ?Take wywv-ydp-mgqxvem or prescription medicines. ?Eat foods that are [...] 07/22/2006 Document Revised: 11/12/2019 Document Reviewed: 02/24/2019 [employer] Patient Education 2020 [employer]. 12/15/2021 17:22:14 Hypokalemia Hypokalemia Hypokalemia means that [...] hospital. Follow these instructions at home: Take ediz-fit-cueblcy and prescription medicines only as told by [...] cantaloupe, kiwi, oranges, tomatoes, asparagus, and potatoes. ?[place] juice. ?Tomato juice. ?Red meats. ?Yogurt. Keep [...] 07/22/2006 Document Revised: 03/04/2019 Document Reviewed: 03/04/2019 [employer] Patient Education 2020 [employer]. Follow Up Care 12/15/2021 12:44:44 With:Lenora SANTOS Address: [address] [place] [address] Business (1) When:12/18/2021 16:02:07 [facility]Reason for visit Narrative* Chief Complaint follow up liver biop sy k75.[address] [facility] Reason for Visit Fatty liver Metabolic dysfunction-associated steatohepatitis (MASH) [facility] Work Phone: Chief complaint+Reason for visit Narrative* Chief Complaint k75.[address] Brigitte Wagoner Reason for Visit BMI 40.0-44.9, adult Hypertension Hypothyroidism Metabolic dysfunction-associated steatohepatitis (MASH) Pre-diabetes Sleep apnea [facility] Work Phone: chief complaint+Reason for visit Narrative* Chief Complaint k75.[address] Brigitte Wagoner r73.03 Reason for Visit BMI 40.0-44.9, adult Hypertension Hypothyroidism Metabolic dysfunction-associated steatohepatitis (MASH) Pre-diabetes Sleep apnea [facility] Work Phone: chief complaint+Reason for visit Narrative* Chief Complaint k75.[address] Brigitte Wagoner r73.03 K75.81 Z79.440 Reason for Visit BMI 40.0-44.9, adult Hypertension Hypothyroidism Metabolic dysfunction-associated steatohepatitis (MASH) Pre-diabetes Sleep apnea BMI 40.0-44.9, adult Hypertension Metabolic dysfunction-associated steatohepatitis (MASH) Sleep apnea Type 2 diabetes mellitus [facility] Work Phone: chief complaint+Reason for visit Narrative* Chief Complaint k75.[address] 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 Medication use / Med Check 3 month follow up Unknown Reason for Visit BMI 40.0-44.9, adult Hypertension Hypothyroidism Metabolic dysfunction-associated steatohepatitis (MASH) Pre-diabetes Sleep apnea BMI 40.0-44.9, adult Hypertension Metabolic dysfunction-associated steatohepatitis (MASH) Sleep apnea Type 2 diabetes mellitus Fatty liver Metabolic dysfunction-associated steatohepatitis ([facility]) [facility] Work Phone: Evaluation + Plan note No data available for this section [facility] Future Appointments Appointment Date:06/06/2022 01:00:00 PM Scheduled Provider:RAJNI MORA PA-C Location:[facility] Appointment Type:URO Office Visit [facility] CenterEvaluation + Plan note Future Appointments Appointment Date:09/12/2023 01:30:00 PM Scheduled Provider:Forest Gonzalez MD [facility] Type:Cardiology Follow Up (FT) Future Scheduled Tests Radiology* Echo Transthoracic Complete 08/02/23 * US LE Venous Duplex [facility] Future App[facility]ments Appointment Date:08/23/2023 07:15:00 AM Scheduled Provider: [facility] Type:MA Screen (FT) Appointment Date:09/12/2023 01:30:00 PM Scheduled Provider:Forest Gonzalez MD [facility] Type:Cardiology Follow Up (FT) Future Scheduled Tests Radiology* MA Mamm Screen w/CAD if perf and 3D Gunnar [facility]23[facility] Future Appointments Appointment Date:09/12/2023 01:30:00 PM Scheduled Provider:Forest Gonzalez MD [facility] Type:Cardiology Follow Up (FT) Appointment Date:09/16/2023 09:00:00 AM Scheduled Provider:Hu Davis DO Location:[facility] [place] Appointment Type:Pain Management - New (FT) [facility] Future Appointments Appointment Date:09/16/2023 09:00:00 AM Scheduled Provider:Hu Davis DO Location:[facility] [place] Appointment Type:Pain Management - New (FT) [facility] Future Appointments Appointment Date:10/17/2023 08:30:00 AM Scheduled Provider:Hu Davis DO Location:[facility] [place] Appointment Type:Pain Management - New (FT) [facility] assessment information available [facility] Work Phone: evaluation note* Diagnosis Acquired hypothyroidism- Primary Unspecified hypothyroidism Class 3 severe obesity with serious comorbidity and body mass index (BMI) of 40.0 to 44.9 in adult, unspecified obesity type (HCC) [facility] Diagnosis Onset Date Resolution Status Encounter for screening colonoscopy acute Hepatic steatosis acute [facility] Work Phone: evaluation note* Diagnosis Primary insomnia Persistent disorder of initiating or maintaining sleep [facility] Diagnosis Class 3 severe obesity with serious comorbidity and body mass index (BMI) of 40.0 to 44.9 in adult, unspecified obesity type (HCC) [facility]* Diagnosis Onset Date Resolution Status Encounter for screening colonoscopy acute Hepatic steatosis acute Hepatic steatosis acute [facility] Work Phone: evaluation note* Diagnosis Class 3 severe obesity with serious comorbidity and body mass index (BMI) of 40.0 to 44.9 in adult, unspecified obesity type (HCC)- Primary [facility]* Diagnosis Onset Date Resolution Status Hepatic steatosis acute Fatty liver acute Metabolic dysfunction-associated steatohepatitis (MASH ) acute [facility] Work Phone: evaluuzjdh note* Diagnosis Hypokalemia- Primary Hypopotassemia Acquired hypothyroidism [...] insulin (CMS/HCC)- Primary [facility] encounter [facility]* Diagnosis Hypokalemia- Primary Hypopotassemia Acquired hypothyroidism [...] Hypopotassemia Type 2 diabetes mellitus without complication, with long-term current use of insulin (CMS/HCC) [facility] N[facility]ative - Reported* Type Description Date Medical History Hypertension Medical History kidney stones Medical History obesity Medical History thyroid disease Surgical History cholecystectomy Surgical History Lumbar Decompression with fusio n L5-S1 Surgical History ankle surgery Surgical History hysterectomy Surgical History shoulder surgery Hospitalization History see [place] [employer] Other Hospital Discharge instructions No data available for this section [facility] Additional Instructions Follow-up with your primary care doctor Return to ED if develop worsening symptoms or concerns[facility] Work Phone: Hospital Discharge instructionsAmbulatory Orders* Referral to Weight Management Time Frame: 12/24/23, Location: None [facility] Work Phone: Progress note No data available for this section [facility] Summary Purpose Family History Relationship Condition Age [...] (HCC) Procedures ENDOCRINE MEDICAL WEIGHT MANAGEMENT OFFICE/OUTPATIENT [facility] 60-74 MINUTES Elly Galicia MD [address] [place] [address] Referral ID Status Reason Start Date Expiration Date Visits Requested Visits Authorized [id number] Pending Review PCP Requested Referral 3 06/23/2024 1 1 Additional Source Comments INFORMATION SOURCE (unrecogn ized section and content) DATE CREATED AUTHOR 09/14/2019 [facility] DATE CREATED AUTHOR AUTHOR'S ORGANIZ ATION 03/28/2022 [facility] DATE CREATED AUTHOR AUTHOR'S ORGANIZ ATION 12/19/2023 [facility] DATE CREATED AUTHOR AUTHOR'S ORGANIZ ATION 03/19/2024 [facility] DATE CREATED AUTHOR AUTHOR'S ORGANIZ ATION 05/19/2024 [facility] DATE CREATED AUTHOR AUTHOR'S ORGANIZ ATION 05/31/2024 [facility] Care Team (unrecognized sect ion and content) Team Status: Active Member Role Status Dates Lenora Santos PA-C Primary Care Provider Active Team Status: Inactive Member Role Status Dates Lenora Santos PA-C Primary Care Provider Active Regino Metcalf DO Emergency Provider Active 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 Relationship Specialty Start Date End Date Neli Slater MD PCP - General Family Medicine 03/19/11 Lenora Santos PA-C [address] [place] [address] Referring Family Medicine 03/18/23 Team Status: Inactive Member Role Status Dates Lenora Santos PA-C Primary Care Provider Active Allan Dimas PA-C Emergency Provider Active 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 Relationship Specialty Start Date End Date Renetta Chavarria MD [address] [place] [address] PCP - General Family Medicine 01/04/23 Lenora Santos PA [address] [place] [address] Physician Associate School Psychologist Family Medicine 01/04/23 Team Status: Inactive Member [...] September 19, 2023 End: September 19, 2023 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 Relationship Specialty Start Date End Date Renetta Chavarria MD [address] [place] [address] PCP - General Family Medicine 01/04/23 Lenora Santos PA [address] [place] [address] Physician Associate School Psychologist Family Medicine 01/04/23 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 Relationship Specialty Start Date End Date Neli Slater MD PCP - General Family Medicine 03/19/11 Lenora Santos PA-C [address] [place] [address] Referring Family Medicine 03/18/23 Team Status: Active [...] September 25, 2023 End: September 25, 2023 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 Relationship Specialty Start Date End Date Neli Slater MD PCP - General Family Medicine 03/19/11 Lenora Santos PA-C [address] [place] [address] Referring Family Medicine 03/18/23 Team Status: Inactive [...] 2023 Team Status: Inactive Member Role Status Triston Santos PA-C Primary Care Provider Active Start: [...] CHALINO LeggettC Primary Care Provider Active Start: May 04, [...] May 04, 2024 End: May 04, 2024 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 Relationship Specialty Start Date End Date Renetta Chavarria MD [address] [place] [address] PCP - General Family Medicine 01/04/23 Lenora Santos PA [address] [place] [address] Physician Associate School Psychologist Family Medicine 01/04/23 Team Status: Inactive Member Role Status Dates Lenora Santos PA-C Primary Care Provider Active Start: May 13, 2024 End: May 13, 2024 Tyra Moreland RN Attending Provider Active Start: May 13, 2024 End: May 13, 2024 Tank Xavier MD Active Start: May 13, 2024 End: May 13, 2024 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 Relationship Specialty Start Date End Date Renetta Chavarria MD [address] [place] [address] PCP - General Family Medicine 01/04/23 Lenora Santos PA [address] [place] [address] Physician Associate School Psychologist Family Medicine 01/04/23 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 Relationship Specialty Start Date End Date Renetta Chavarria MD [address] [place] [address] PCP - General Family Medicine 01/04/23 Lenora Santos PA [address] [place] [address] Physician Associate School Psychologist Family Medicine 01/04/23 Team Status: Inactive Member Role Status Dates Lenora Santos PA-C Primary Care Provider Active Start: May 19, 2024 End: May 19, 2024 Kamilah Ward MD Attending Provider Active Start: May 19, 2024 End: May 19, 2024 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 Relationship Specialty Start Date End Date Renetta Chavarria MD [address] [place] [address] PCP - General Family Medicine 01/04/23 Lenora Santos PA [address] [place] [address] Physician Associate School Psychologist [facility] Medicine 01/04/23 Team Status: Inactive Member Role Status Dates Lenora Santos PA-C Primary Care Provider Active Start: May 21, 2024 End: May 21, 2024 Koffi García DPM MS Attending Provider Active Start: May 21, 2024 End: May 21, 2024 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 Relationship Specialty Start Date End Date Renetta Chavarria MD [address] [place] [address] PCP - General Family Medicine 01/04/23 Lenora Santos PA [address] [place] [address] Physician Associate School Psychologist Family Medicine 01/04/23 Goals (unrecognized section and [...] (HCC) Procedures ENDOCRINE MEDICAL WEIGHT MANAGEMENT OFFICE/OUTPATIENT [facility] 60-74 MINUTES Elly Galicia MD [address] [place] [address] Referral ID Status Reason Start Date Expiration Date V isits Requested Visits Authorized [id number] Closed PCP Requested Referral 06/24/2023 06/23/2024 1 1 Reason Comments Follow Up Reason Comments Diabetic Eye Exam Blurred Vision Reason Comments Diabetes A1C checked in offic e Follow-up Check on potassium a nd BP meds Source Comments (unrecognize d section and content) In the event this informatio n is protected by the Federal Confidentiality of Alcohol and Drug Abuse Patient Records regulations: The Federal rules restrict any use of the information to criminally investigate or prosecute any alcohol or drug abuse patient.[facility] the event this information is protected by the Federal Confidentiality of Alcohol and Drug Abuse Patient Records regulations: The Federal rules restrict any use of the information to criminally investigate or prosecute any alcohol or drug abuse patient.[facility] the event this information is protected by the Federal Confidentiality of Alcohol and Drug Abuse Patient Records regulations: The Federal rules restrict any use of the information to criminally investigate or prosecute any alcohol or drug abuse patient.[facility] the event this information is protected by the Federal Confidentiality of Alcohol and Drug Abuse Patient Records regulations: The Federal rules restrict any use of the information to criminally investigate or prosecute any alcohol or drug abuse patient.[facility] FOR RECORDS PERTAINING TO PATIENTS WHO ARE [...] BE BASED ON THE PRIMARY CLINICAL RECORDS. [facility] [employer] [facility]. provides no warranty or guarantee of the accuracy or completeness of information in this document.
== END 2024-06-12 09:39 | disposition home or self-care (01) ==
LOC: RAD 09:38
PROVIDERS: PCP Physician Assistant; Visit Provider Podiatrist Foot & Ankle Surgery
DX: M25.571 Pain in right ankle and joints of right foot (principal); M24.671 Ankylosis, right ankle
CPT/HCPCS: 73610

== ENCOUNTER 2024-06-30 10:36 | Outpatient (OUT) | payer BC, SELFPAY ==
--- NOTE | 2024-06-30 10:42 | XR_ITS ---
The [address] [address] Patient Name: DEJAH DYKES MRN: [id number] date: 1970 Sex: F Assigned Patient Location: [facility] Current Patient Location: Accession/Order Number: [id number] Exam Date: 06/30/2024 11:00 Report Date: 07/03/2024 08:47 At the request of: SAURABH MOREL Procedure: XR ankle RT min 3V PROCEDURE: XR ankle RT min 3V HISTORY: Right Ankle Pain M25.571 COMPARISON: XR ankle right 06/12/2024 FINDINGS: BONES:Mechanical fusion of the ankle joint and hindfoot via intramedullary kell and locking screws. Prior resection of distal fibula. SOFT TISSUES:Images were obtained to cast material which slightly limits evaluation. EFFUSION:None visible. OTHER: Negative. XR/XR ankle RT min 3V IMPRESSION: 1. Ankle and hindfoot fusion without evidence of hardware failure or change in alignment. Electronically authenticated by: LISA HAYNES Date: 07/03/2024 08:47
== END 2024-06-30 10:37 | disposition home or self-care (01) ==
LOC: RAD 10:36
PROVIDERS: PCP Physician Assistant; Visit Provider Podiatrist Foot & Ankle Surgery
DX: M25.571 Pain in right ankle and joints of right foot (principal); M24.671 Ankylosis, right ankle
CPT/HCPCS: 73610

== ENCOUNTER 2024-07-15 09:55 | Outpatient (OUT) | payer BC, SELFPAY ==
--- NOTE | 2024-07-15 | XR_ITS ---
[address] [address] Patient Name: DEJAH DYKES MRN: [id number] date: 1970 Sex: F Assigned Patient Location: [facility] Current Patient Location: Accession/Order Number: [id number] Exam Date: 07/15/2024 09:57 Report Date: 07/16/2024 05:08 At the request of: SAURABH MOREL Procedure: XR ankle RT min 3V PROCEDURE: XR ankle RT min 3V HISTORY: RIGHT ANKLE PAIN COMPARISON: XR ankle right 06/30/2024 FINDINGS: BONES:Mechanical fusion of the ankle joint and hindfoot via intramedullary kell and locking screws. Resection of lateral malleolus. SOFT TISSUES:Mild soft tissue swelling surrounding the ankle. EFFUSION:None visible. OTHER: Negative. XR/XR ankle RT min 3V IMPRESSION: 1. Stable surgical changes without evidence of hardware failure or change in alignment. 2. Interval removal of cast material. Mild residual soft tissue swelling. Electronically authenticated by: LISA HAYNES Date: 07/16/2024 05:08
== END 2024-07-15 09:56 | disposition home or self-care (01) ==
LOC: RAD 09:56
PROVIDERS: PCP Physician Assistant; Visit Provider Podiatrist Foot & Ankle Surgery
DX: M25.571 Pain in right ankle and joints of right foot (principal); M24.671 Ankylosis, right ankle
CPT/HCPCS: 73610

== ENCOUNTER 2024-08-21 12:55 | Outpatient (OUT) | payer BC, SELFPAY ==
--- NOTE | 2024-08-21 13:04 | CT_ITS ---
The [address] [address] Patient Name: DEJAH DYKES MRN: [id number] date: 1970 Sex: F Assigned Patient Location: CT Current Patient Location: Accession/Order Number: [id number] Exam Date: 08/21/2024 13:10 Report Date: 08/22/2024 10:23 At the request of: SAURABH MOREL Procedure: CT ankle RT wo con CT ankle RT wo con: 08/21/2024 1:10 PM EST HISTORY: Prior surgery on the right ankle. Right ankle pain. Follow-up. COMPARISON: CT scan right lower extremity 11/15/2023 and radiographs right ankle 07/15/2024. TECHNIQUE: Multiple contiguous axial CT images of the right lower extremity were obtained from the level of the mid tibial diaphysis through the midfoot without contrast. Sagittal and coronal reformatted images were made. Dose reduction techniques were achieved by using automated exposure control and/or adjustment of mA and/or kV according to patient size and/or use of iterative reconstruction technique. FINDINGS: There are postsurgical changes again seen from prior resection of the distal fibula at the level of the distal fibular diaphysis. There are also postsurgical changes again seen from prior arthrodesis surgery of the tibiotalar joint and posterior subtalar joint with an intramedullary nail and proximal and distal interlocking screws. The tip of a screw extending through the calcaneus projects 3 mm beyond the anterior cortex of the calcaneus into the calcaneocuboid joint. The proximal extent of the intramedullary nail is not included in the [id number]-[id number]. The visualized hardware appears intact. No lucency is seen adjacent to the hardware. There has been development of osseous fusion across 100% of the cross-sectional area of the tibiotalar joint. There has also been development of osseous fusion across 100% of the posterior subtalar joint. No fracture or dislocation is seen. There is evidence of disuse osteopenia with periarticular lucencies. There is a small enthesophyte at the Achilles tendon insertion. No significant fluid density collection is seen. 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 CT/CT ankle RT wo con IMPRESSION: 1. Prior arthrodesis surgery of the tibiotalar joint and posterior subtalar joint with complete osseous fusion across the tibiotalar joint and posterior subtalar joint. Please note that the tip of the screw within the calcaneus projects 3 mm beyond the anterior cortex of the calcaneus into the calcaneocuboid joint. 2. Prior resection of the distal fibula. Electronically authenticated by: SHWETA GUZMAN Date: 08/22/2024 10:23
== END 2024-08-21 12:56 | disposition home or self-care (01) ==
LOC: CT 12:55
PROVIDERS: PCP Physician Assistant; Visit Provider Podiatrist Foot & Ankle Surgery
DX: M19.071 Primary osteoarthritis, right ankle and foot (principal); Z98.1 Arthrodesis status
CPT/HCPCS: 73700

== ENCOUNTER 2024-09-23 08:23 | Outpatient (RCR) | payer BC, SELFPAY | END 2024-11-12 09:49 | disposition home or self-care (01) | LOC: PT 08:23 | PROVIDERS: PCP Physician Assistant; Visit Provider Podiatrist Foot & Ankle Surgery | DX: M19.071 Primary osteoarthritis, right ankle and foot (principal) | CPT/HCPCS: 97110; 97112; 97116; 97140; 97163; 97530 ==

== ENCOUNTER 2024-10-07 08:25 | Outpatient (OUT) | payer BC, SELFPAY ==
--- NOTE | 2024-10-07 08:29 | XR_ITS ---
The [place] [id number] Patient Name: DEJAH DYKES MRN: [id number] date: 1970 Sex: F Assigned Patient Location: [facility] Current Patient Location: [facility] Accession/Order Number: [id number] Exam Date: 10/07/2024 22:55 Report Date: 10/07/2024 22:57 At the request of: SAURABH MOREL DPSabine Procedure: XR ankle RT min 3V RIGHT ANKLE - 3 views CLINICAL HISTORY: Right ankle post surgery. COMPARISON: Right ankle series 07/16/2024 FINDINGS: Ankle fusion hardware is noted without hardware complication. There is distal resection of the fibula grossly similar configuration to the prior study. No acute bony process is seen. Midfoot demonstrate degenerative change. Diffuse soft tissue swelling is present. XR/XR ankle RT min 3V IMPRESSION: NO HARDWARE COMPLICATION. Impression dictated by: Brian Walton Jr., DGorgeOGorge10/07/2024 10:57 PM Dictation Location: [employer] Electronically authenticated by: [id number] Y Date: 10/07/2024 22:57
== END 2024-10-07 08:26 | disposition home or self-care (01) ==
LOC: RAD 08:25
PROVIDERS: PCP Physician Assistant; Visit Provider Podiatrist Foot & Ankle Surgery
DX: M25.571 Pain in right ankle and joints of right foot (principal); M24.671 Ankylosis, right ankle
CPT/HCPCS: 73610

== ENCOUNTER 2025-02-04 13:06 | Outpatient (OUT) | payer BC, SELFPAY ==
--- OUTSIDE RECORDS SUMMARY | 2025-02-04 13:10 | XMS_ITS | Encounter Summary ---
Author Organization [facility] Address [facility] [place] [address] Care Team Providers Care Software Development Manager Name Role Phone Neli Slater MD Primary Care Provider + Lenora Fajardo PA-C Unavailable [phone] Source Comments In the event this information is protected by the Federal Confidentiality of Alcohol and Drug AbusePatient Records regulations: The Federal rules restrict any use of the information to criminally investigate or prosecute any alcohol or drug abuse patient.[facility] Encounter Details Date Type Department Care Team (Late st Contact Info) Description 01/16/2024 Patient [facility] HB-[address] [place] [id number] Sangeeta Pan RPh At your next appointment, choose [facility] Social History Tobacco Use Types Packs/Day Years Used Date Smoking Tobacco: Never Alcohol Use Standard Drinks/Week Comments Yes 0 (1 standard drink = 0.6 oz pur e alcohol) 4-5x/year Area Deprivation Index Answer Date Brady rded National Score (1-100), lower number is lower ri sk 67 06/24/2023 State Score (1-10), lower number is lower risk 5 06/24/2023 Data from: https://www.neighborhoodatlas.medicine.[place] healthcare.[facility]/. Last address used for calculation [address] 06/24/2023 Comments No Sex and Gender Information Value Date Recorded Sex Assigned at Not on file Legal Sex Female 9:08 AM EST Gender Identity Not on file Sexual Orientation Not on file documented as of this encounter Plan of Treatment Not on file documented as of this encounter Visit Diagnoses Not on filedocumented in this encounter Care Teams Software Development Manager Relationship Specialty Start Date End Date Neli Slater MD PCP - General Family Medicine 03/19/11 Lenora Fajardo PA-C [address] [place] [address] Referring Family Medicine 03/18/23 documented as of this encounter
--- OUTSIDE RECORDS SUMMARY | 2025-02-04 13:10 | XMS_ITS | Clinical Summary ---
Author Organization [facility] Address [address] [place] [id number] Care Team Providers Care Pyrotechnics Press Tender Name Role Phone Neli Slater MD Primary Care Provider + Lenora Fajardo PA-C Unavailable Allergies Active Allergy Reactions Criticality Noted Date Comments Adhesive Tape (Rosins) Rash,Itching 04/12/2011 Seasonal Allergies Itching,Other: See Comments 04/19/2011 Watery eyes, runny nose, sneezing Acetaminophen Other: See Comments 11/11/2023 Hydrocodone-Acetaminophe n Other: See Comments Medium 04/19/2011 Hallucinations Medications zolpidem (AMBIEN) 10 mg ORAL TabIndications: OCD (osteochondriti s dissecans) of talus,Pain in joint, ankle and foot Take 1 tablet by mouth at bedtime as needed. for insomnia. 0 1 Active montelukast (SINGULAIR) 10 mg ORAL tabletIndicatio ns:OCD (osteochondriti s dissecans) of talus,Pain in joint, ankle and foot Take 1 tablet by mouth daily at bedtime. 0 1 Active Minocycline 135 mg ORAL [id number] :OCD (osteochondriti s dissecans) of talus,Pain in joint, ankle and foot Take by mouth. 0 1 Active levothyroxine 50 mcg cap Take 50 mcg by mouth daily before breakfast. Active potassium chloride 20 mEq TbER Take 20 mEq by mouth once daily. Active bisoprolol-hydr oCHLOROthiazide (ZIAC) 5-6.25 mg per tablet Take by mouth. 0 Active oxyCODONE-aceta minophen (PERCOCET) 5-325 mg tablet Take 1 tablet by mouth q 6 HR. 3 Active pregabalin (LYRICA) 75 mg capsule Take 75 mg by mouth. 4 Active metFORMIN ER (GLUCOPHAGE XR) 500 mg 24 hr tablet First week take one tablet with breakfast daily; second week: take one tablet with breakfast and one tablet with dinner; third week: take two pills with breakfast and one pill with dinner; fourth week and onwards: take two pills with breakfast and two pills with dinner. 360 tablet 1 4 Active Additional Information Patient not taking.Reason: Other, Reported on 11/11/2023 Active Problems Problem Noted Date Diagnosed Date Acquired hypothyroidism 02/14/2023 05/06/20 23 Overview (05/06/2023): Last Assessment & Plan: Will continue current meds and see in one month Acne rosacea 02/01/2023 05/06/2023 Class 3 severe obesity with body mass index (BMI) of 40.0 to 44.9 in adult 02/01/2023 05/06/2023 Kidney stones 02/01/2023 05/06/2023 Essential hypertension 01/04/2023 3 Sleep apnea in adult 01/04/2023 05/06/2023 Neuroma 08/22/2011 Right ankle instability 04/23/2011 Left ankle instability 03/20/2011 Osteoarthrosis, unspecified whether generalized or localized, ankle and foot 03/20/2011 OCD (osteochondritis dissecans) of talus 011 Pain in joint, ankle and foot 03/14/2011 Social History Tobacco Use Types Packs/Day Years Used Date Smoking Tobacco: Never Tobacco Cessation:Counseling Given: Not Answered Alcohol Use Standard Drinks/Week Comments Yes 0 (1 standard drink = 0.6 oz pur e alcohol) 4-5x/year Area Deprivation Index Answer Date Brady rded National Score (1-100), lower number is lower ri 67 06/24/2023 State Score (1-10), lower number is lower risk 5 06/24/2023 Data from: https://www.neighborhoodatlas.medicine.[facility].edu/. Last address used for calculation [address] 06/24/2023 Comments No Sex and Gender Information Value Date Recorded Sex Assigned at Not on file Legal Sex Female 9:08 AM EST Gender Identity Not on file Sexual Orientation Not on file Last Filed Vital Signs Vital Sign Reading Time Taken Comments Blood Pressure 138/81 11/11/2023 9:08 AM EDT Pulse 75 11/11/2023 9:08 AM EDT Temperature 36.6 C (97.9 F) 04/19/2011 7:55 AM EDT Respiratory Rate 16 04/19/2011 7:55 AM EDT Oxygen Saturation 100% 11/11/2023 9:08 AM EDT Inhaled Oxygen Concentration - - Weight 116 kg (255 lb 11.7 oz) 11/11/2023 9:08 A M EDT Height 162.6 cm (5' 4 ) 11/11/2023 9:08 AM EDT Body Mass Index 43.9 11/11/2023 9:08 AM EDT Plan of Treatment Health Maintenance Due Date Last Done Comments Annual PCP Team Chronic Dise ase Visit 1987 Anxiety Screening 1987 Depression Screening 1987 HIV Screening 1987 Hepatitis C Screening 1987 Hepatitis B Vaccine (1 of 3 - 19+ 3-dose series) 1988 Cervical Cancer Screening 1990 CT Colonography 2014 Cologuard (FIT-DNA) 2014 Colonoscopy 2014 Colorectal Cancer Screening 2014 Fecal Occult Blood 2014 Lipid Screening 2014 Sigmoidoscopy 2014 Pneumococcal Vaccine: 50+ (1 of 1 - PCV) 2019 Shingrix Vaccine (1 of 2) 2019 DTaP,Tdap,Td Vaccine (2 - Td or Tdap) 05/01/2022 05/01/2012 Mammogram Screening 12/14/2022 12/14/2021 Covid-19 Vaccine (5 - 2023-2 5 season) 2024 05/14/2022, 07/06/2021, 11/18/2020, Additional history exists Influenza Vaccine (#1) 2025 3, 05/14/2022, 06/08/2021, Additional history exists Diabetes Screening 09/24/2026 09/24/2023, 0 09/24/2023, 05/06/2023, Additional history exists Procedures Procedure Name Priority Date/Time Associated Diagnosis Comments COMPREHENSIVE METABOLIC PANEL Routine 09/24/2023 2:05 PM EST Class 3 severe obesity with serious comorbidity and body mass index (BMI) of 40.0 to 44.9 in adult, unspecified obesity type (HCC) from Last 3 Months or Most Recently Relevant to Health Maintenance Results * (ABNORMAL) COMP METABOLIC PANEL (09/24/2023 2:05 PM EST) Pathologist [facility] Protein, Total 7.2 6.3 - 8.0 g/dL 09/25/2023 12:[address] [facility] Albumin 4.1 3.9 - 4.9 g/dL 09/25/2023 12:[address] [facility] Calcium, Total 9.7 8.5 - 10.2 mg/dL 09/25/2023 12:08 AM [facility] Bilirubin, Total 0.6 0.2 - 1.3 mg/dL 09/25/2023 12:[address] [facility] Alkaline Phosphatase 83 34 - 123 U/L 09/25/2023 12:08 AM [facility] AST 68(H) 13 - 35 U/L 09/25/2023 12:[address] [facility] ALT 63(H) 7 - 38 U/L 09/25/2023 12:08 AM [facility] Glucose 82 74 - 99 mg/dL 09/25/2023 12:08 AM [facility] Comment: The [place] Diabetes Association (ADA) provides guidance for cutoff [...] Standards of Medical Care in Diabetes 2016, [place] [employer]. Diabetes Care. 2016.39(Suppl 1). BUN 8 7 - 21 mg/dL 09/25/2023 12:[address] [facility] Creatinine 0.73 0.58 - 0.96 mg/dL 09/25/2023 12:08 AM [facility] Sodium 143 136 - 144 mmol/L 09/25/2023 12:08 AM [facility] Potassium 3.4(L) 3.7 - 5.1 mmol/L 09/25/2023 12:08 AM [facility] Chloride 104 97 - 105 mmol/L 09/25/2023 12:08 AM [facility] CO2 26 22 - 30 mmol/L 09/25/2023 12:08 AM [facility] Anion Gap 13 9 - 18 mmol/L 09/25/2023 12:08 AM [facility] Estimated Glomerular Filtration Rate 98 >=60 mL/min/1.7 3m 09/25/2023 12:08 AM [facility] Comment:Estimated Glomerular Filtration Rate (eGFR) is calculated using the 2020 CKD-EPI creatinine equation. This equation utilizes serum creatinine, sex, and age as parameters. The creatinine assay has traceable calibration to isotope dilution- mass spectrometry. Refer to KDIGO guidelines for clinical interpretation. In patients with unstable renal function, e.g. those with acute kidney injury, the eGFR may not accurately reflect actual GFR. Blood BLOOD SPECIMEN / Unknown Venipuncture / Unknown 09/24/2023 2:05 PM EST 09/24/2023 2:05 PM EST us Quin Thompson MD LABORATORY Final R esult [facility] [address] [address], [place] from Last 3 Months or Most Recently Relevant to Health Maintenance Insurance BLUE ACCESS PPO Care Teams Pyrotechnics Press Tender Relationship Specialty Start Date End Date Neli Slater MD PCP - General Family Medicine 03/19/11 Lenora Fajardo PA-C [address] [place] [address] Referring Family Medicine 03/18/23
--- OUTSIDE RECORDS SUMMARY | 2025-02-04 13:10 | XMS_ITS | Encounter Summary ---
Author Organization [facility] Address [address] [place] [address] Care Team Providers Care Mailing Machine Helper Name Role Phone Neli Slater MD Primary Care Provider + Lenora Fajardo PA-C Unavailable + [phone] Source Comments In the event this information is protected by the Federal Confidentiality of Alcohol and Drug AbusePatient Records regulations: The Federal rules restrict any use of the information to criminally investigate or prosecute any alcohol or drug abuse patient.[facility] Encounter Details Date Type Department Care Team (Late st Contact Info) Description 11/04/2023 Patient Msg Endocrinology [address] [place] [address] [place] [address] [place], [place] [id number] Appointment Request Social History Tobacco Use Types Packs/Day Years Used Date Smoking Tobacco: Never Alcohol Use Standard Drinks/Week Comments Yes 0 (1 standard drink = 0.6 oz pur e alcohol) 4-5x/year Area Deprivation Index Answer Date Brady rded National Score (1-100), lower number is lower ri 67 06/24/2023 State Score (1-10), lower number is lower risk 5 06/24/2023 Data from: https://www.neighborhoodatlas.medicine.[facility].edu/. Last address used for calculation [address] 06/24/2023 Comments No Sex and Gender Information Value Date Recorded Sex Assigned at Not on file Legal Sex Female 9:08 AM EST Gender Identity Not on file Sexual Orientation Not on file documented as of this encounter Plan of Treatment Not on file documented as of this encounter Visit Diagnoses Not on filedocumented in this encounter Care Teams Mailing Machine Helper Relationship Specialty Start Date End Date Neli Slater MD PCP - General Family Medicine 03/19/11 Lenora Fajardo PA-C [address] [place] [address] Referring Family Medicine 03/18/23 documented as of this encounter
--- OUTSIDE RECORDS SUMMARY | 2025-02-04 13:10 | XMS_ITS | Encounter Summary ---
Author Organization [facility] Address [address] [place] [address] Care Team Providers Care Mail Sorting Supervisor Name Role Phone Neli Slater MD Primary Care Provider + Lenora Fajardo PA-C Unavailable [phone] Source Comments In the event this information is protected by the Federal Confidentiality of Alcohol and Drug AbusePatient Records regulations: The Federal rules restrict any use of the information to criminally investigate or prosecute any alcohol or drug abuse patient.[facility] Encounter Details Date Type Department Care Team (Late st Contact Info) Description 11/11/2023 Patient Msg General Surgery [address] [place] [address] Provider, [facility] Referral Information Social History Tobacco Use Types Packs/Day Years Used Date Smoking Tobacco: Never Alcohol Use Standard Drinks/Week Comments Yes 0 (1 standard drink = 0.6 oz pur e alcohol) 4-5x/year Area Deprivation Index Answer Date Brady rded National Score (1-100), lower number is lower ri sk 67 06/24/2023 State Score (1-10), lower number is lower risk 5 06/24/2023 Data from: https://www.neighborhoodatlas.medicine.[facility].edu/. Last address used for calculation [address] [...] on filedocumented in this encounter Care Teams Mail Sorting Supervisor Relationship Specialty Start Date End Date Neli Slater MD PCP - General Family Medicine 03/19/11 Lenora Fajardo PA-C [address] [place] [address] Referring Family Medicine 03/18/23 documented as of this encounter
--- OUTSIDE RECORDS SUMMARY | 2025-02-04 13:10 | XMS_ITS | Clinical Summary ---
Author Organization [facility] Address [address] [place] [address] Care Team Providers Care Surveillance Investigator Name Role Phone Neli Slater MD Primary Care Provider + Allergies Active Allergy Reactions Criticality Noted Date Comments Hydrocodone-Acetaminophe n Other (See Comments) 08/07/2017 hallucinations Medications predniSONE (DELTASONE) 10 MG tablet Take 1 tablet by mouth daily 1 tab TID x 3 days, 1 tab BID x 3 days, 1 tab QD x 3 days 18 tablet 06/02/2019 Active diclofenac (VOLTAREN) 50 MG EC tablet Take 1 tablet by mouth 2 times daily 60 tablet 06/15/2019 Active Social History Tobacco Use Types Packs/Day Years Used Date Smoking Tobacco: Never Smokeless Tobacco: Never Alcohol Use Standard Drinks/Week Comments No 0 (1 standard drink = 0.6 oz pur e alcohol) Comments Unknown Sex and Gender Information Value Date Recorded Sex Assigned at Not on file Legal Sex Female 1:39 PM EST Gender Identity Not on file Sexual Orientation Not on file Last Filed Vital Signs Vital Sign Reading Time Taken Comments Blood Pressure - - Pulse - - Temperature 36.7 C (98.1 F) 01/22/2020 9:32 AM EDT Respiratory Rate 16 06/02/2019 8:20 AM EDT Oxygen Saturation - - Inhaled Oxygen Concentration - - Weight 113.4 kg (250 lb) 01/22/2020 9:32 AM EDT Height 162.6 cm (5' 4 ) 01/22/2020 9:32 AM EDT Body Mass Index 42.91 01/22/2020 9:32 AM EDT Plan of Treatment Not on file Insurance [facility] Care Teams Surveillance Investigator Relationship Specialty Start Date End Date Neli Slater MD PCP - General Family Medicine 05/28/19
--- OUTSIDE RECORDS SUMMARY | 2025-02-04 13:10 | XMS_ITS | Encounter Summary ---
Author Organization [facility] Address [facility] [place] [address] Care Team Providers Care Leadlighter Name Role Phone Neli Slater MD Primary Care Provider + Lenora Fajardo PA-C Unavailable + [phone] Source Comments In the event this information is protected by the Federal Confidentiality of Alcohol and Drug AbusePatient Records regulations: The Federal rules restrict any use of the information to criminally investigate or prosecute any alcohol or drug abuse patient.[facility] Encounter Details Date Type Department Care Team (Late st Contact Info) Description 11/07/2023 Patient [facility] [place] [address] Sangeeta Pan RPh At your next appointment, choose [facility] Social History Tobacco Use Types Packs/Day Years Used Date Smoking Tobacco: Never Alcohol Use Standard Drinks/Week Comments Yes 0 (1 standard drink = 0.6 oz pur e alcohol) 4-5x/year Area Deprivation Index Answer Date Brady rded National Score (1-100), lower number is lower ri sk 67 06/24/2023 State Score (1-10), lower number is lower risk 5 06/24/2023 Data from: https://www.neighborhoodatlas.medicine.[facility]/. Last address used for calculation [...] on filedocumented in this encounter Care Teams Leadlighter Relationship Specialty Start Date End Date Neli Slater MD PCP - General Family Medicine 03/19/11 Lenora Fajardo PA-C [address] [place] [address] Referring Family Medicine 03/18/23 documented as of this encounter
--- OUTSIDE RECORDS SUMMARY | 2025-02-04 13:10 | XMS_ITS | Encounter Summary ---
Author Organization [facility] Address [facility] [place] [address] Care Team Providers Care Radiation Therapy Technologist Name Role Phone Neli Slater MD Primary Care Provider + Lenora Fajardo PA-C Unavailable [phone] Source Comments In the event this information is protected by the Federal Confidentiality of Alcohol and Drug AbusePatient Records regulations: The Federal rules restrict any use of the information to criminally investigate or prosecute any alcohol or drug abuse patient.[facility] Encounter Details Date Type Department Care Team (Late st Contact Info) Description 12/16/2023 Lab Requisition [facility] [place] [address] Carlitos Ramesh MD [address] [place] [address] Person encountering health services to consult on behalf of another person Social History Tobacco Use Types Packs/Day Years Used Date Smoking Tobacco: Never Alcohol Use Standard Drinks/Week Comments Yes 0 (1 standard drink = 0.6 oz pur e alcohol) 4-5x/year Area Deprivation Index Answer Date Brady rded National Score (1-100), lower number is lower ri sk 67 06/24/2023 State Score (1-10), lower number is lower risk 5 06/24/2023 Data from: https://www.neighborhoodatlas.medicine.[facility].edu/. Last address used for calculation [address] 06/24/2023 Comments No Sex and Gender Information Value Date Recorded Sex Assigned at Not on file Legal Sex Female 9:08 AM EST Gender Identity Not on file Sexual Orientation Not on file documented as of this encounter Plan of Treatment Not on file documented as of this encounter Procedures Procedure Name Priority Date/Time Associated Diagnosis Comments SURGICAL PATHOLOGY REFERENCE LAB CONSULT Routine 12/16/2023 2:45 PM EDT Person encountering health services to consult on behalf of another person documented in this encounter Results * SURGICAL PATHOLOGY REFERENCE LAB CONSULT (12/16/2023 2:45 PM EDT) Case Report Surgical Pathology Report Case: [id number] Authorizing Provider: Carlitos Ramesh MD Collected: 12/16/2023 02:45 PM Ordering Location: [facility] Received: 12/16/2023 02:44 PM [facility] Pathologist: Gely Wells MD Specimen: Slide(s), 11 SLIDES [id number] 12/17/2023 4:58 PM EDT [facility] FINAL DIAGNOSIS Liver, biopsy (A1, special stains): - Steatohepatitis with patchy bridging fibrosis. - See comment. 12/17/2023 4:58 PM EDT [facility] at 1658 EDT Diagnosis Comment Thank you for allowing us the opportunity to [...] do not hesitate to contact us at [phone] with questions or if additional follow-up information becomes available. This case was reviewed in conjunction with the GI pathology fellow, Luis Mccauley M.D. 12/17/2023 4:58 PM EDT [facility] Clinical History CONSULT REQUESTED 12/17/2023 4:58 PM EDT [facility] Performing Lab Diagnostic interpretation performed at [facility], [address] [place] [address] CLIA# [id number] Certified Caregiver: Krunal Ferguson M.D. 12/17/2023 4:58 PM EDT [facility] Blocks or Slides MICROSCOPE SLIDE / Unknown 12/16/2023 2:45 PM EDT 12/16/2023 2:44 PM EDT Carlitos Ramesh MD SURGICAL PATHOLOGY Final Re sult [facility] [address] [place] [address] documented in this encounter Visit Diagnoses Diagnosis Person encountering health services to consult on behalf of another person Other person consulting on behalf of another person documented in this encounter Care Teams Radiation Therapy Technologist Relationship Specialty Start Date End Date Neli Slater MD PCP - General Family Medicine 03/19/11 Lenora Fajardo PA-C [address] [place] [address] Referring Family Medicine 03/18/23 documented as of this encounter
--- NOTE | 2025-02-04 13:12 | XR_ITS ---
[facility] [place] [address] Patient Name: DEJAH DYKES MRN: [id number] date: 1970 Sex: F Assigned Patient Location: [facility] Current Patient Location: [facility] Accession/Order Number: [id number] Exam Date: 02/04/2025 13:36 Report Date: 02/04/2025 13:38 At the request of: SAURABH MOREL DPSabine Procedure: XR ankle RT min 3V RIGHT ANKLE - 3 views CLINICAL HISTORY: Follow-up ankle surgery. COMPARISON: Ankle series 10/07/2024 FINDINGS: Hardware fusion involving the ankle mortise without evidence of hardware complication. Distal resection of the fibula also unchanged. No acute bony process is seen. Degenerative changes involving the hindfoot midfoot. XR/XR ankle RT min 3V IMPRESSION: HARDWARE FUSION INVOLVING THE ANKLE MORTISE WITHOUT HARDWARE COMPLICATION. Impression dictated by: Brian Walton Jr., DGorgeOGorge 02/04/2025 1:38 PM Dictation Location: [place] [address] Electronically authenticated by: [id number] Y Date: 02/04/2025 13:38
== END 2025-02-04 13:07 | disposition home or self-care (01) ==
LOC: RAD 13:08
PROVIDERS: PCP Physician Assistant; Visit Provider Podiatrist Foot & Ankle Surgery
DX: M25.571 Pain in right ankle and joints of right foot (principal); M24.671 Ankylosis, right ankle
CPT/HCPCS: 73610